=== PATIENT | male | born 1940 | race Caucasian/White ===

== ENCOUNTER → 2016-05-23 | Outpatient (CLI) | payer MEDICARE ==
[~2016-05-23] MED LIST: ASPI-587 PO; ASPI-84 PO; CALC-850 PO; CEPH500C PO; CHOL100011 PO; CRV6.25T PO; DOCU-161 PO; FERR-57 PO; FINA5TAB6 PO; FOLI1TAB24 PO; HYDR-1231 PO; MEMA10TA PO; OMEP40CA36 PO; PARO20TA57 PO; PRED5TAB PO; SIMV20TA3 PO; TAMS0.4C2 PO
--- NOTE | 2016-05-23 12:37 | Diagnostic Imaging Report ---
INDICATION: Cough and fever. PA and lateral chest: FINDINGS: Heart size and pulmonary vascularity are normal. Lungs are clear. There are no effusions or pneumothoraces. IMPRESSION: Negative chest. Dictated by: Dictated on workstation # [id number]
== END ==
LOC: RAD 11:14
PROVIDERS: ATTEND Nurse Practitioner
DX: R50.9 Fever, unspecified (principal); R05 Cough
CPT/HCPCS: 71020

== ENCOUNTER 2016-05-29 17:58 | Emergency (ER) | payer MEDICARE ==
[~2016-05-29] VITALS: Ht 182.9 cm; Wt 79.4 kg
--- NOTE | 2016-05-29 18:22 | ED Fall/Injury ---
General Chief Complaint: Trauma-Non Activation Stated Complaint: FALL, HEAD INJ Nursing Triage Note: Pt fell yesterday at [facility] and hit the back of his head. Pt felt dizzy and nausea yesterday but condition improved. Patient denies pain today. Nurse discussed case with Darwin Thomas today and he wanted his patient assessed at the ER today. Source: patient, caregiver Exam Limitations: no limitations History of Present Illness Time seen by provider: 18:00 Initial Comments Here with fall yesterday off a stool and hit the back of his head. He was dizzy and nauseated but no loss of consciousness. He thought of as a few days before and hit the front of his face. He does have small abrasion to the top of the back of his head and bruising to his lower lip. Walked without difficulty and is communicating without difficulty. Occurred: yesterday Severity: mild, moderate Injuries/Pain Location: head, face Loss of Consciousness: no loss of consciousness Modifying Factors: Improves With Immobilization, Improves With Rest Associated Symptoms (Fall): No Abdominal Pain, No Chest Pain, No Confusion, HeadacheNo Lightheadedness, No Nausea/Vomiting, No Neck Pain, No Trouble Walking Allergies and Home Medications Allergies Coded Allergies: acetaminophen (Unverified Allergy, Unknown, 07/28/14) hydrocodone (Unverified Allergy, Unknown, 07/28/14) oxycodone (Unverified Allergy, Unknown, 07/28/14) Home Medications Aspirin 81 Mg Tablet. 81 MG PO DAILY (Reported) Aspirin 81 Mg Tablet. #30 81 MG PO DAILY Prescribed by: MYRON DAWN on 07/25/14 1355 Calcium Carbonate/Vitamin D3 1 Each Tab.chew 1 TAB PO BID (Reported) Carvedilol 6.25 Mg Tab 6.25 MG PO BID (Reported) Cephalexin Monohydrate 500 Mg Capsule #12 1 EACH PO TID Prescribed by: JERONIMO MAYBERRY on 10/12/13 1721 Cholecalciferol 1,000 Unit Capsule 1,000 UNIT PO DAILY (Reported) Docusate Sodium 100 Mg Capsule 100 MG PO BID (Reported) Ferrous Sulfate 325 Mg Tablet 325 MG PO BID (Reported) Finasteride 5 Mg Tablet 5 MG PO DAILY (Reported) Folic Acid 1 Mg Tablet 1 MG PO DAILY (Reported) Hydrocodone Bit/Acetaminophen 1 Tab Tablet #10 1 TAB PO Q6H PRN PRN PAIN Prescribed by: JERONIMO MAYBERRY on 10/12/13 1721 Memantine Hcl 10 Mg Tablet 10 MG PO BID (Reported) Omeprazole 40 Mg Capsule.dr 40 MG PO DAILY (Reported) Paroxetine Hcl 20 Mg Tablet 20 MG PO DAILY (Reported) Prednisone 5 Mg Tablet 5 MG PO DAILY (Reported) Simvastatin 20 Mg Tablet 20 MG PO HS (Reported) Tamsulosin Hcl 0.4 Mg Cap.sr.24h 0.4 MG PO DAILY (Reported) Constitutional: see HPINo chills, No fever Eyes: No Symptoms Reported Ears, Nose, Mouth, Throat: no symptoms reporteddenies nose pain, denies nose discharge, denies epistaxis Respiratory: no symptoms reportedNo short of breath Cardiovascular: no symptoms reportedNo chest pain, No edema Gastrointestinal: no symptoms reported nausea (previously but improved now) Genitourinary: no symptoms reported Musculoskeletal: no symptoms reported Skin: see HPI lesions (abrasion to the posterior scalp) Psychiatric/Neurological: Denies Weakness, Other (dizziness) Past Ydhuhpo-Glkkls-Mkodtc Hx Patient Social History Alcohol Use: Denies Use Recreational Drug Use: No Recent Foreign Travel: No Contact w/Someone Who Travel: No Recent Infectious Disease Expo: No Immunizations Up To Date Tetanus Booster (TDap): Less than 5yrs Surgeries HX Surgeries: Yes Respiratory Hx Respiratory Disorders: No Cardiovascular Hx Cardiac Disorders: No Neurological Hx Neurological Disorders: No Gastrointestinal Hx Gastrointestinal Disorders: Yes (takes antacid prn) Musculoskeletal Hx Musculoskeletal Disorders: No Endocrine Hx Endocrine Disorders: No HEENT HX ENT Disorders: No Cancer Hx Cancer: No Psychosocial Hx Psychiatric Problems: No Reviewed Nursing Assessment Reviewed/Agree w Nursing PMH: Yes Family Medical History Family Medial History: Alzheimer's disease 19 MOTHER, Diabetes mellitus 19 FATHER, , Age:60 years and older Myocardial infarction 19 FATHER, , Age:60 years and older Physical Exam Vital Signs Vital Sign - Last 12Hours 05/29/16 18:11 Temp 97.5 Pulse 7 Resp 18 B/P 165/106 Pulse Ox 98 Capillary Refill : Less Than 3 Seconds General Appearance: WD/WN no apparent distress HEENT: PERRL/EOMI TMs normal pharynx normal Neck: non-tender full range of motion supple normal inspection Cardiovascular: regular rate, rhythm no murmur Respiratory: lungs clear normal breath sounds Gastrointestinal: non tender soft Back: normal inspection no CVA tenderness no vertebral tenderness Extremities: non-tender normal inspection Neurologic/Psychiatric: alert oriented x 3 Skin: warm/dry ecchymosis (small amount of ecchymosis to the lower lip) other (quarter size abrasion to the posterior scalp) Bharati Coma Score Best Eye Response: (4) Open Spontaneously Best Verbal Response: (5) Oriented Best Motor Response: (6) Obeys Commands Progress/Results/Core Measures Results/Orders My Orders Orders-JAHAIRA ELLIS MD Dipht,Pertuss(Acell),Tet Adult (Boostrix (05/29/16 19:06) Vital Signs/I&O Vital Sign - Last 12Hours 05/29/16 05/29/16 18:11 18:15 Temp 97.5 97.5 Pulse 7 7 Resp 18 18 B/P 165/106 165/106 Pulse Ox 98 98 Blood Pressure Mean: 125 Progress Note : Progress Note Seen and evaluated. CT head and neck ordered. No acute findings. Discharged home with return precautions. 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 Tetanus updated. Diagnostic Imaging Diagonstic Imaging: CT Plain Films/CT/US/NM/MRI: c-spine, head Comments NAME: BELA RODRIGUES [facility] REC#: [id number] PT STATUS: REG ER : 1940 PHYSICIAN: JERONIMO MAYBERRY APRN ADMIT DATE: 05/29/16/ER Signed Date of Exam: 05/29/16 CT HEAD/CERVICAL SPINE WO PROCEDURE: CT head and CT cervical spine without contrast. TECHNIQUE: Multiple contiguous axial images were obtained through the brain and cervical spine without the use of intravenous contrast. Sagittal and coronal reformations through the cervical spine were then performed. INDICATION: Fall, head and neck pain. COMPARISON: CT head from 07/24/14. FINDINGS: CT head: Stable age-related cerebral volume loss and chronic small vessel ischemic changes are present. There is no midline shift or mass effect. There is no hemorrhage or evidence of acute ischemia. There is no skull fracture. Mastoid air cells are clear. There is significant sinus disease. Air-fluid levels are seen in the maxillary right sphenoid sinus. Mucosal thickening is seen in the ethmoid sinus air cells. IMPRESSION: 1. No acute intracranial abnormalities. 2. Advanced sinus disease. CT cervical spine: Alignment is normal. There is no subluxation or fracture. Degenerative changes are seen throughout the disc spaces and facet joints. There is no osseous lesion. There is atherosclerosis of the bilateral carotid and vertebral arteries. IMPRESSION: No traumatic malalignment or fracture. Dictated by: Dictated on workstation # [id number] Dict: 05/29/161837 Trans: 05/29/161845 [facility] [id number] Interpreted by: GEOVANNI MERCADO Electronically signed by:GEOVANNI MERCADO 05/29/161847 Departure Impression Impression: Primary Impression: Minor head injury without loss of consciousness Qualified Code: S09.90XA - Unspecified injury of head, initial encounter Additional Impression: Abrasion Disposition: 01 HOME, SELF-CARE Condition: Improved Departure-Patient Inst. Decision time for Depature: 19:05 Referrals: JAMA ISAACS MD (PCP/Family) Primary Care Physician Patient Instructions: Skin Abrasions (DC), Minor Head Injury (DC) Add. Discharge Instructions: All discharge instructions reviewed with patient and/or family. Voiced understanding. Continue home medications as directed. You may use antibiotic ointment over wound on back of head. Follow-up with your doctor in a day or 2 for recheck and further evaluation. Return for worsening, fever, vomiting, weakness, breathing problems or other concerns as needed. Copy Copies To 1: JAMA ISAACS MD, TIMOTHY D MD May 29, 2016 18:22
--- NOTE | 2016-05-29 18:45 | Diagnostic Imaging Report ---
PROCEDURE: CT head and CT cervical spine without contrast. TECHNIQUE: Multiple contiguous axial images were obtained through the brain and cervical spine without the use of intravenous contrast. Sagittal and coronal reformations through the cervical spine were then performed. INDICATION: Fall, head and neck pain. COMPARISON: CT head from 07/24/14. FINDINGS: CT head: Stable age-related cerebral volume loss and chronic small vessel ischemic changes are present. There is no midline shift or mass effect. There is no hemorrhage or evidence of acute ischemia. There is no skull fracture. Mastoid air cells are clear. There is significant sinus disease. Air-fluid levels are seen in the maxillary right sphenoid sinus. Mucosal thickening is seen in the ethmoid sinus air cells. IMPRESSION: 1. No acute intracranial abnormalities. 2. Advanced sinus disease. CT cervical spine: Alignment is normal. There is no subluxation or fracture. Degenerative changes are seen throughout the disc spaces and facet joints. There is no osseous lesion. There is atherosclerosis of the bilateral carotid and vertebral arteries. IMPRESSION: No traumatic malalignment or fracture. Dictated by: Dictated on workstation # [id number]
[2016-05-29] MEDS ORDERED: TETANUS,DIPTH,PERTUSS P/F (BOOSTRIX) 0.5 ML VIAL IM STA (19:06)
[2016-05-29 19:19] VITALS: BP 0/0
== END 2016-05-29 19:17 | disposition home or self-care (01) ==
LOC: EDUNIT# 17:58 → ER 18:00
DX: S00.01XA Abrasion of scalp, initial encounter (principal); S00.531A Contusion of lip, initial encounter; Z23 Encounter for immunization; Z79.899 Other long term (current) drug therapy; Z79.82 Long term (current) use of aspirin; W07.XXXA Fall from chair, initial encounter; Y92.511 Restaurant or cafe as the place of occurrence of the external cause; Y99.8 Other external cause status
CPT/HCPCS: 70450; 72125; 90471; 90715; 99282

== ENCOUNTER → 2017-04-21 | Outpatient (CLI) | payer MEDICARE ==
[2017-04-21 17:53] LABS: BILIRUBIN,URINE NEGATIVE (NEGATIVE); CLARITY,URINE CLEAR; COLOR,URINE YELLOW; GLUCOSE, URINE (UA) NEGATIVE (NEGATIVE); KETONES,URINE NEGATIVE (NEGATIVE); LEUKOCYTE ESTERASE ,URINE NEGATIVE (NEGATIVE); NITRITE,URINE NEGATIVE (NEGATIVE); PH,URINE 7 (5-9); PROTEIN,URINE NEGATIVE (NEGATIVE); UROBILINOGEN,URINE NORMAL (NORMAL)
[2017-04-21 18:13] LABS: URINE CREATININE FOR RATIO 45 MG/DL (30-125); URINE PROTEIN FOR RATIO ONLY < 6 MG/DL (6-12)
[2017-04-21 18:16] LABS: BACTERIA,URINE NEGATIVE /HPF
== END ==
LOC: LAB 17:36
PROVIDERS: ATTEND Internal Medicine Nephrology
DX: I12.9 Hypertensive chronic kidney disease with stage 1 through stage 4 chronic kidney disease, or unspecified chronic kidney disease (principal); N18.3 Chronic kidney disease, stage 3 (moderate); D64.9 Anemia, unspecified
CPT/HCPCS: 81000; 82570; 84156

== ENCOUNTER 2017-12-15 20:30 | Emergency (ER) | payer MEDICARE ==
[~2017-12-15] VITALS: Ht 180.3 cm; Wt 95.7 kg
[2017-12-15] MEDS ORDERED: NS IV 1000 ML 1,000 ML IV SCH (22:41)
[2017-12-15 22:45] LABS: BASOPHILS % (AUTO) 0 % (0-10); EOSINOPHILS # (AUTO) 0.1 10^3/uL (0.0-0.3); EOSINOPHILS % (AUTO) 1 % (0-10); HEMATOCRIT 32 % (40-54); HEMOGLOBIN 10.8 G/DL (13.3-17.7); LYMPHOCYTES % (AUTO) 10 % (12-44); MEAN CORPUSCULAR HEMOGLOBIN 31 PG (25-34); MEAN CORPUSCULAR HGB CONC 34 G/DL (32-36); MEAN CORPUSCULAR VOLUME 93 FL (80-99); MEAN PLATELET VOLUME 10.3 FL (7.4-10.4); MONOCYTES # (AUTO) 1.1 X 10^3 (0.0-1.0); MONOCYTES % (AUTO) 11 % (0-12); NEUTROPHILS # (AUTO) 7.7 X 10^3 (1.8-7.8); NEUTROPHILS % (AUTO) 78 % (42-75); PLATELET COUNT 123 10^3/uL (130-400); RED BLOOD COUNT 3.46 10^6/uL (4.35-5.85); WHITE BLOOD COUNT 9.8 10^3/uL (4.3-11.0)
[2017-12-15 22:48] VITALS: BP 105/72
--- NOTE | 2017-12-15 22:48 | ED General ---
General Chief Complaint: General Problems/Pain Stated Complaint: FEVER Nursing Triage Note: FEVER SINCE LAST NIGHT. INCONTINENT SINCE FEVER STARTED. 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 The [facility] called the nurse and the nurse said that when this happens with him that usually urinary tract infection. The patient is also been having urinary incontinence. Patient knows where he is up but doesn't recall incontinence. He thinks a fall but staff said he did not have any falls today. He lives at [facility]. No evidence of trauma to his head or neck. Patient is not incontinent of bladder at baseline. 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 He is not having any pain shortness of breath cough or chills. Allergies and Home Medications Allergies Coded Allergies: acetaminophen (Unverified Allergy, Unknown, 07/28/14) hydrocodone (Unverified Allergy, Unknown, 07/28/14) oxycodone (Unverified Allergy, Unknown, 07/28/14) Home Medications Aspirin 81 Mg Tablet., 81 MG PO DAILY, (Reported) Aspirin 81 Mg Tablet.dr, 81 MG PO DAILY Prescribed by: MYRON DAWN on 07/25/14 1355 Calcium Carbonate/Vitamin D3 1 Each Tab.chew, 1 TAB PO BID, (Reported) Carvedilol 6.25 Mg Tab, 6.25 MG PO BID, (Reported) Cephalexin Monohydrate 500 Mg Capsule, 1 EACH PO TID Prescribed by: JERONIMO MAYBERRY on 10/12/13 1721 Cholecalciferol 1,000 Unit Capsule, 1,000 UNIT PO DAILY, (Reported) Docusate Sodium 100 Mg Capsule, 100 MG PO BID, (Reported) Ferrous Sulfate 325 Mg Tablet, 325 MG PO BID, (Reported) Finasteride 5 Mg Tablet, 5 MG PO DAILY, (Reported) Folic Acid 1 Mg Tablet, 1 MG PO DAILY, (Reported) Hydrocodone Bit/Acetaminophen 1 Tab Tablet, 1 TAB PO Q6H PRN for PAIN Prescribed by: JERONIMO MAYBERRY on 10/12/13 1721 Memantine Hcl 10 Mg Tablet, 10 MG PO BID, (Reported) Omeprazole 40 Mg Capsule.dr, 40 MG PO DAILY, (Reported) Paroxetine Hcl 20 Mg Tablet, 20 MG PO DAILY, (Reported) Prednisone 5 Mg Tablet, 5 MG PO DAILY, (Reported) Simvastatin 20 Mg Tablet, 20 MG PO HS, (Reported) Tamsulosin Hcl 0.4 Mg Cap.sr.24h, 0.4 MG PO DAILY, (Reported) Patient Home Medication List Home Medication List Reviewed: Yes Review of Systems Review of Systems Constitutional: No chills, No diaphoresis EENTM: No hearing loss, No ear pain Respiratory: No cough, No short of breath Cardiovascular: No chest pain, No palpitations Gastrointestinal: No abdominal pain, No nausea, No vomiting Genitourinary: No dysuria; incontinence Musculoskeletal: No back pain Past Aufasvh-Jvyeot-Qyakmg Hx Patient Social History Alcohol Use: Denies Use Recreational Drug Use: No Recent Foreign Travel: No Contact w/Someone Who Travel: No Recent Infectious Disease Expo: No Recent Hopitalizations: No Physical Abuse: No Sexual Abuse: No Immunizations Up To Date Tetanus Booster (TDap): Less than 5yrs Past Medical History Surgeries: No Respiratory: No Cardiac: No Neurological: No Genitourinary: No Gastrointestinal: No Musculoskeletal: No Endocrine: No HEENT: No Cancer: No Psychosocial: No Nursing Suicide Risk Score: 0 Integumentary: No Blood Disorders: No Family Medical History Alzheimer's disease 19 MOTHER, Diabetes mellitus 19 FATHER, , Age:60 years and older Myocardial infarction 19 FATHER, , Age:60 years and older Physical Exam Vital Signs Vital Signs - First Documented 12/15/17 22:01 Temp 98.2 Pulse 76 Resp 15 B/P (MAP) 98/62 (74) Pulse Ox 93 Capillary Refill : Less Than 3 Seconds Height, Weight, BMI Height: 5'11.00" Weight: 211lbs. oz. 95.494424hb; BMI Method:Stated General Appearance: No Apparent Distress, WD/WN Eyes: Bilateral Eye Normal Inspection, Bilateral Eye PERRL, Bilateral Eye EOMI HEENT: PERRL/EOMI, Pharynx Normal, Moist Mucous Membranes Neck: Full Range of Motion, Supple Respiratory: Chest Non Tender, Lungs Clear, Normal Breath Sounds, No Accessory Muscle Use, No Respiratory Distress Cardiovascular: Regular Rate, Rhythm, No Edema Gastrointestinal: Non Tender, Soft Extremity: Normal Capillary Refill, No Pedal Edema Neurologic/Psychiatric: Alert, Other (Oriented to person and place but not time or situation) Progress/Results/Core Measures Suspected Sepsis Recent Fever Within 48 Hours: Yes Infection Criteria Present: None New/Unexplained Altered Menta: No Sepsis Screen: No Definite Risk SIRS Temperature:98.2 Pulse: 76 Respiratory Rate: 15 Laboratory Tests 12/15/17 22:38: White Blood Count 9.8 Blood Pressure 98 /62 Mean: 74 Laboratory Tests 12/15/17 22:38: Creatinine 2.23H, Platelet Count 123L, Total Bilirubin 0.5 Results/Orders Lab Results Laboratory Tests Test 12/15/17 22:38 12/15/17 22:45 Range/Units White Blood Count 9.8 4.3-11.0 10^3/uL Red Blood Count 3.46 L 4.35-5.85 10^6/uL Hemoglobin 10.8 L 13.3-17.7 G/DL Hematocrit 32 L 40-54 % Mean Corpuscular Volume 93 80-99 FL Mean Corpuscular Hemoglobin 31 25-34 PG Mean Corpuscular Hemoglobin Concent 34 32-36 G/DL Red Cell Distribution Width 13.0 10.0-14.5 % Platelet Count 123 L 130-400 10^3/uL Mean Platelet Volume 10.3 7.4-10.4 FL Neutrophils (%) (Auto) 78 H 42-75 % Lymphocytes (%) (Auto) 10 L 12-44 % Monocytes (%) (Auto) 11 0-12 % Eosinophils (%) (Auto) 1 0-10 % Basophils (%) (Auto) 0 0-10 % Neutrophils # (Auto) 7.7 1.8-7.8 X 10^3 Lymphocytes # (Auto) 1.0 1.0-4.0 X 10^3 Monocytes # (Auto) 1.1 H 0.0-1.0 X 10^3 Eosinophils # (Auto) 0.1 0.0-0.3 10^3/uL Basophils # (Auto) 0.0 0.0-0.1 10^3/uL Sodium Level 138 135-145 MMOL/L Potassium Level 4.0 3.6-5.0 MMOL/L Chloride Level 106 98-107 MMOL/L Carbon Dioxide Level 20 L 21-32 MMOL/L Anion Gap 12 5-14 MMOL/L Blood Urea Nitrogen 41 H 7-18 MG/DL Creatinine 2.23 H 0.60-1.30 MG/DL Estimat Glomerular Filtration Rate 29 BUN/Creatinine Ratio 18 Glucose Level 155 H 70-105 MG/DL Calcium Level 9.0 8.5-10.1 MG/DL Corrected Calcium 9.5 8.5-10.1 MG/DL Total Bilirubin 0.5 0.1-1.0 MG/DL Aspartate Amino Transf (AST/SGOT) 16 5-34 U/L Alanine Aminotransferase (ALT/SGPT) 13 0-55 U/L Alkaline Phosphatase 33 L 40-136 U/L Total Protein 6.7 6.4-8.2 GM/DL Albumin 3.4 3.2-4.5 GM/DL Urine Color YELLOW Urine Clarity SLIGHTLY CLOUDY Urine pH 6 5-9 Urine Specific [place] 1.010 L 1.016-1.022 Urine Protein 2+ H NEGATIVE Urine Glucose (UA) NEGATIVE NEGATIVE Urine Ketones NEGATIVE NEGATIVE Urine Nitrite NEGATIVE NEGATIVE Urine Bilirubin NEGATIVE NEGATIVE Urine Urobilinogen NORMAL NORMAL MG/DL Urine Leukocyte Esterase NEGATIVE NEGATIVE Urine RBC (Auto) 3+ H NEGATIVE Urine RBC 10-25 H /HPF Urine WBC NONE /HPF Urine Crystals NONE /LPF Urine Bacteria NONE /HPF Urine Casts NONE /LPF Urine Mucus NEGATIVE /LPF Urine Culture Indicated NO My Orders Orders - ILIANA SQUIRES Saline Lock/Iv-Start (12/15/17 22:41) Ns Iv 1000 Ml (Sodium Chloride 0.9%) (12/15/17 22:41) Vital Signs/I&O 12/15/17 22:01 Temp 98.2 Pulse 76 Resp 15 B/P (MAP) 98/62 (74) Pulse Ox 93 Capillary Refill : Less Than 3 Seconds Blood Pressure Mean: 74 Progress Note #1: Time: 22:46 Progress Note He has a history of dementia but staff saying he is having some symptoms of stomach delirium. The urinary incontinence is concerning for UTI so we'll check some basic labs give him a liter of fluids and a urinalysis specimen. If is not able to produce it we'll do a straight catheter. His blood pressure around 100 to 105 systolic. We will give him a liter fluids and watch him. Even if he has urinary tract infection and delirium if the rest of his labs are okay at probably reasonable to let him go home to comfort care and continue outpatient therapy. Progress Note #2: Time: 23:38 Progress Note Patient still having no focal complaints. He's had no documented fever here in the ER however I do tend to believe them. He is not having any pulmonary symptoms. His urine has red blood cells which is consistent with a prostatism and a straight catheter but no evidence of infection. I think would be better to return him to the home plus and have them observe him and follow-up with his primary care provider next week. However if he gets worse they can bring him back. His vital signs of been fine since she's been here. His blood pressure 123 /81 heart rate in the 60s. Perhaps a virus? Diagnostic Imaging Diagonstic Imaging: Xray Plain Films/CT/US/NM/MRI: chest Comments No acute cardiopulmonary processes noted. Reviewed: Reviewed by Me Departure Impression Primary Impression: History of fever Disposition: HOME, SELF-CARE Condition: Stable Departure-Patient Inst. Decision time for Depature: 23:45 Referrals: JAMA ISAACS MD (PCP/Family) Primary Care Physician Patient Instructions: Fever, Adult (DC) Add. Discharge Instructions: Drink lots of fluids. If he gets a fever again give him some Tylenol or Motrin. If he starts having any specific symptoms falls, shortness of breath, painful urination etc. please bring him back to the ER or to his primary care doctor. Have him follow-up next week with the PA or Dr. Isaacs and have them reexamine him. All discharge instructions reviewed with patient and/or family. Voiced understanding. Copy Copies To 1: JAMA ISAACS MD, TITUS J Dec 15, 2017 22:48
[2017-12-15 22:59] LABS: BILIRUBIN,URINE NEGATIVE (NEGATIVE); CLARITY,URINE SLIGHTLY CLOUDY; COLOR,URINE YELLOW; GLUCOSE, URINE (UA) NEGATIVE (NEGATIVE); KETONES,URINE NEGATIVE (NEGATIVE); LEUKOCYTE ESTERASE ,URINE NEGATIVE (NEGATIVE); NITRITE,URINE NEGATIVE (NEGATIVE); PH,URINE 6 (5-9); PROTEIN,URINE 2+ (NEGATIVE); UROBILINOGEN,URINE NORMAL (NORMAL)
[2017-12-15 23:02] LABS: ALBUMIN 3.4 GM/DL (3.2-4.5); BILIRUBIN,TOTAL 0.5 MG/DL (0.1-1.0); CREATININE SERUM 2.23 MG/DL (0.60-1.30); TOTAL PROTEIN 6.7 GM/DL (6.4-8.2)
--- OUTSIDE RECORDS SUMMARY | 2017-12-16 04:59 | XMS REPORT | Clinical Summary ---
Author Author User, [facility] Lorene Durbin DO, FACP Address Unknown Phone Allergies, Adverse Reactions, Alerts Allergy Name Reaction Description Start Date Severity Status Provider PERCOCET Dermatological problems, e.g., rash, hives Critical Active Lorene Durbin HYDROCODONE Does not work Critical Active Lorene Durbin Conditions or Problems Problem Name Problem Code Onset Date Status Entry Date Provider Comment Standard Description Annotate PVD 443.9 Active Lorene Durbin Peripheral vascular disease, unspecified RENAL INSUFFICIENCY 588.9 Active Lorene Durbin Unspecified disorder resulting from impaired renal function OSTEOARTHRITIS 715.90 Active Lorene Durbin Osteoarthrosis, unspecified whether generalized or localized, involving unspecified site HYPERTENSION 401.1 Active Lorene Durbin Benign essential hypertension ERECTILE DYSFUNCTION, 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 Lorene Durbin Impotence of organic origin MUSCLE CRAMPS 729.82 Resolved Lorene Durbin Cramp of limb VASCULITIS 447.6 Resolved Lorene Durbin Arteritis, unspecified CHEST PAIN 786.50 Resolved Lorene Durbin Unspecified chest pain BRONCHITIS 490 Resolved Lorene Durbin Bronchitis, not specified as acute or chronic COUGH 786.2 Resolved Lorene Durbin Cough MARSHALL SPLINTS 844.9 Resolved Lorene Durbin Sprain of unspecified site of knee and leg BACK PAIN 724.5 Resolved Lorene Durbin Backache, unspecified CAROTID ARTERY STENOSIS, LEFT 433.10 Active Lorene Durbin Occlusion and stenosis of carotid artery, without mention of cerebral infarction TIA 435.9 Resolved Lorene Durbin Unspecified transient cerebral ischemia SCIATICA, RIGHT 724.3 Resolved Lorene Durbin Sciatica HYPERGLYCEMIA, MILD 790.6 Correction Lorene Durbin Other abnormal blood chemistry DIABETES MELLITUS, NONINSULIN DEPENDENT (NIDDM) 250.00 Active Lorene Durbin Diabetes mellitus without mention of complication, type II or unspecified type, not stated as uncontrolled HAND PAIN, LEFT 729.5 Resolved Lorene Durbin Pain in limb ABDOMINAL PAIN, ACUTE 789.00 Resolved Lorene Durbin Abdominal pain, unspecified site ANEMIA NOS 285.9 Resolved Lorene Durbin Anemia, unspecified CELLULITIS 682.9 Resolved Lorene Durbin Cellulitis and abscess of unspecified sites PNEUMONIA 486 Resolved Lorene Durbin Pneumonia, organism unspecified FEVER 780.6 Resolved Lorene Durbin Fever and other physiologic disturbances of temperature regulation BRONCHITIS 490 Resolved Lorene Durbin Bronchitis, not specified as acute or chronic COUGH 786.2 Resolved Lorene Durbin Cough VACCINE AGAINST STREPTOCOCCUS PNEUMONIAE V03.82 Resolved Lorene Durbin Need for prophylactic vaccination against Streptococcus pneumoniae [pneumococcus] DYSPHAGIA PHARYNGOESOPHAGEAL PHASE 787.24 Resolved Lorene Durbin Dysphagia, pharyngoesophageal phase SHINGLES, RECURRENT 053.9 Resolved Lorene Durbin Herpes zoster without mention of complication 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 Lorene Durbin 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 Lorene Durbin 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 ENCEPHALOPATHY, METABOLIC 348.31 Resolved Lorene Durbin Metabolic encephalopathy RINGWORM 110.9 Resolved Lorene Durbin Dermatophytosis of unspecified site DERMATITIS, CONTACT, NOS 692.9 Resolved Lorene Durbin Contact dermatitis and other eczema, unspecified cause DELIRIUM DUE TO CONDITIONS CLASSIFIED ELSEWHERE 293.0 Resolved Lorene Durbin Delirium due to conditions classified elsewhere MEMORY LOSS 780.93 Active Lorene Durbin Memory loss PNEUMONIA 486 Resolved Lorene Durbin Pneumonia, organism unspecified COUGH 786.2 Resolved Lorene Durbin Cough ANEMIA NOS 285.9 Active Lorene Durbin Anemia, unspecified PSYCHOMOTOR SEIZURE 345.40 Resolved Lorene Durbin Localization-related (focal) (partial) epilepsy and epileptic syndromes with complex partial seizures, without mention of intractable epilepsy URTICARIA, ACUTE 708.9 Inactive Lorene Durbin Unspecified urticaria URTICARIA, ACUTE 708.9 Inactive Lorene Durbin Unspecified urticaria OTITIS EXTERNA 380.10 Inactive Lorene Durbin Infective otitis externa, unspecified DEPRESSION 311 Active Lorene Durbin Depressive disorder, not elsewhere classified HYPERCHOLESTEROLEMIA 272.0 Active Lorene Durbin Pure hypercholesterolemia CHRONIC AIRWAY OBSTRUCTION (COPD) 496 Active Lorene Durbin Chronic airway obstruction, not elsewhere classified WHEEZING 786.07 Active Lorene Durbin Wheezing COUGH 786.2 Active Lorene Durbin Cough Medication List Medication Instructions Start Date Stop Date Generic Name NDC Status Provider Patient Instruction NOVOLOG 100 U/ML SOLN INJECT 3 UNITS BEFORE MEALS INSULIN ASPART 11358671264 Active Elizabeth Dixon PREDNISONE 10 MG TAB 2 PO at one time once daily for three days then 1 PO dialy for three days PREDNISONE 70573562750 Active Lorene Durbin SYMBICORT 160-4.5 MCG/ACT AERO 2 puffs BID BUDESONIDE- FORMOTEROL FUMARATE 67560913036 Active Lorene Durbin PULMICORT 0.5 MG/2ML SUSP I VIAL-INHALE ORALLY DAILY BUDESONIDE 31797189888 No Longer Active Lorene Durbin FOLIC ACID 1 MG TABS 1 PO QD FOLIC ACID 27373618451 No Longer Active Lorene Durbin TRAZODONE HCL 100 MG TABS 1 PO AT HS TRAZODONE HCL 97490305706 Active Elizabeth Dixon PREDNISONE 5 MG TABS 1 PO DAILY PREDNISONE 74911357587 Active Elizabeth Dixon IPRATROPIUM-ALBUTEROL 0.5-2.5 (3) MG/3ML SOLN 1 VIAL INHALE ORALLY TID 09/17 IPRATROPIUM-ALBUTEROL 27149604258 Active Lorene Durbin DEPAKOTE SPRINKLES 125 MG CPSP 1 TIME DAILY DIVALPROEX SODIUM 47932058394 Active Lorene Durbin EXELON 4.6 MG/24HR PT24 APPLY PATCH DAILY RIVASTIGMINE 03112686086 Active Lorene Merylgladys Durbin FOLIC ACID 1 MG TABS 1 PO DAILY FOLIC ACID 33052742284 Active Lorene Meryl Ramakrishna MELATONIN 3 MG TABS 1 PO AT HS FOR INSOMNIA MELATONIN 64342322718 Active Elizabeth Destiny MIRALAX POWD 17 GRAMS PO BID POLYETHYLENE GLYCOL 3350 75808620369 Active Lorene Meryl Ramakrishna NORVASC 10 MG TABS 1 PO DAILY AMLODIPINE BESYLATE 71607819164 Active Lorene Meryl Ramakrishna CELEXA 20 MG TABS 1 PO DAILY CITALOPRAM HYDROBROMIDE 56198953766 Active Lorene Meryl Ramakrishna PAXIL 20 MG TAB 1 PO DAILY PAROXETINE HCL 61964234213 No Longer Active Lorene Meryl Durbin BISACODYL LAXATIVE 10 MG SUPP 1 NC QD PRN constipation BISACODYL 59444096737 No Longer Active Lorene Mreyl Durbin COREG 6.25 MG TABS 1 PO BID CARVEDILOL 61732853393 Active Lorene Meryl Durbin BENADRYL 25 MG CAP 1 PO TID prn DIPHENHYDRAMINE HCL 59481423188 No Longer Active Lorene Meryl Durbin LACTULOSE SOLN 30 ML PO BID PRN Constipation LACTULOSE SOLN 77946257705 No Longer Active Lorene Meryl Durbin LASIX 40 MG TAB 1 PO MWF FUROSEMIDE 06015667543 No Longer Active Lorene Meryl Durbin VITAMIN D 1000 UNIT TABS 1 PO Daily CHOLECALCIFEROL 44327987591 Active Lorene Meryl Durbin ZOCOR 20 MG TABS 1 PO DAILY SIMVASTATIN 50180265349 Active Elizabeth Dixon FINASTERIDE 5 MG TABS 1 PO DAILY FINASTERIDE 76183362088 Active Lorene Meryl Durbin NAMENDA 10 MG TABS 1 PO BID MEMANTINE HCL 52510405445 Active Elizabeth Dixon KENALOG 0.1 % CREA apply to affected areas BID TRIAMCINOLONE ACETONIDE No Longer Active Lorenedada Durbin DILANTIN 100 MG CAP 1 PO at 7am and 2 pm and 2 PO at HS PHENYTOIN SODIUM EXTENDED 66125676015 No Longer Active Lorene Meryl Durbin PREDNISONE 20 MG TAB 1 PO daily for 7 days then resume 5mg dosing as previous PREDNISONE 89268799510 No Longer Active Lorene Meryl Durbin AUGMENTIN 500-125 MG TAB 1 PO BID AMOXICILLIN-POT CLAVULANATE 42422494195 No Longer Active Lorene Meryl Durbin OCUFLOX 0.3 % SOLN 2 drops in right ear TID for 7 days OFLOXACIN 03596135727 No Longer Active Lorene Meryl Durbin PREDNISONE 20 MG TAB 1 PO daily for 7 days PREDNISONE 76554829876 No Longer Active Lorene Meryl Durbin KENALOG 0.1 % CREA apply to affected areas BID TRIAMCINOLONE ACETONIDE No Longer Active Lorenedada Durbin ATARAX 25 MG TAB 1 PO Q6hrs prn itching HYDROXYZINE HCL No Longer Active Lorene Meryl Durbin DETROL LA 4 MG CP24 1 PO daily TOLTERODINE TARTRATE 93235709237 No Longer Active Lorene Meryl Durbin FINASTERIDE 5 MG TABS 1 PO BID FINASTERIDE 32990898490 No Longer Active Lorene Meryl Durbin BACTRIM DS 800-160 MG TAB 1 PO MWF TRIMETHOPRIM- SULFAMETHOXAZOLE 48870473511 No Longer Active Lorene Meryl Durbin NYSTATIN POWD Apply Topically to groin BID for gaulding NYSTATIN 70874062299 No Longer Active Lorene Meryl Durbin TERBINAFINE HCL 1 % CREA Apply to affected area BID TERBINAFINE HCL 05901780553 No Longer Active Lorenedada Durbin CALTRATE 600 PLUS-VIT D 600-200 MG-IU TABS 1 PO BID CALCIUM-VITAMIN D Active Elizabeth Dixon VALTREX 1 GM TAB 1 PO BID VALACYCLOVIR HCL 25837400334 No Longer Active Lorene Meryl Durbin TESSALON 200 MG CAPS 1 PO TID prn cough BENZONATATE 95212628610 No Longer Active Elizabeth Dixon PREDNISONE 10 MG TABS 1 PO QD PREDNISONE 49396705069 No Longer Active Lorenedada Durbin TESSALON 200 MG CAPS 1 PO TID prn cough BENZONATATE 94754594162 No Longer Active Lorenedada Durbin FLOMAX 0.4 MG CAPS 1 PO QD for urinary retention TAMSULOSIN HCL 34414917156 Active Elizabethjenn Dixon OMEPRAZOLE 40 MG CPDR 1 PO QD OMEPRAZOLE 98035226666 Active Elizabethjenn Dixon FERROUS SULFATE 325 (65 FE) MG TABS 1 PO BID FERROUS SULFATE 85663685616 Active Elizabethjenn Dixon COLACE 100 MG CAPS 1 PO BID prevent constipation DOCUSATE SODIUM 10373595267 Active Elizabeth Dixon ACETAMINOPHEN 325 MG TABS 2 PO Q 4hrs PRN pain or fever ACETAMINOPHEN 73859705134 Active Lorenedada Durbin IMURAN 50 MG TABS 3 po daily AZATHIOPRINE 22039988917 No Longer Active Lorenedada Durbin TOVIAZ 4 MG [id number] 1 po daily FESOTERODINE FUMARATE 47681892857 No Longer Active Lorene Durbin COREG 12.5 MG TABS 1 po bid CARVEDILOL 88618296338 No Longer Active Lorenedada Durbin WAVESENSE PRESTO TEST STRP Check BS Daily DX: DIABETES GLUCOSE BLOOD 04951805580 No Longer Active Lorene Meryl Durbin OMEPRAZOLE 40 MG CPDR 1 PO Daily OMEPRAZOLE 26297895732 No Longer Active Lorene Meryl Durbin FLOMAX 0.4 MG CAPS 1 PO Daily TAMSULOSIN HCL 94089204502 No Longer Active Lorene Meryl Durbin MEPRON 750 MG/5ML SUSP 5 ml PO BID ATOVAQUONE 02954954895 No Longer Active Lorene Meryl Durbin PREDNISONE 5 MG TABS 2 po daily PREDNISONE 28948512989 No Longer Active Lorene Meryl Durbin TERAZOSIN HCL 2 MG CAPS 1 PO qhs TERAZOSIN HCL 16980208224 No Longer Active Lorene Meryl Durbin VITAMIN D 1000 UNIT TABS 1 PO Daily CHOLECALCIFEROL 81892293586 No Longer Active Lorene Meryl Durbin PEPCID 20 MG TAB 1 PO daily FAMOTIDINE 49640443463 No Longer Active Lorene Meryl Durbin VITAMIN B-12 100 MCG TABS 1 po daily CYANOCOBALAMIN 56071461522 No Longer Active Lorene Meryl Durbin IRON 325 (65 FE) MG TABS 1 PO daily FERROUS SULFATE 80750582311 No Longer Active Lorene Meryl Durbin CALCIUM 600 1500 MG TABS 1 PO QAM and 2 PO QHS CALCIUM CARBONATE 59727436441 No Longer Active Lorene Meryl Durbin MULTIVITAMINS TABS 1 po daily MULTIPLE VITAMIN 23480485959 No Longer Active Lorene Meryl Durbin FISH OIL 1000 MG CAPS 1 po daily OMEGA-3 FATTY ACIDS 50617250702 No Longer Active Lorene Meryl Durbin ASPIRIN 81 MG TAB 1 PO QD ASPIRIN 25185744773 No Longer Active Lorene Meryl Durbin NORVASC 5 MG TAB 1 PO Daily AMLODIPINE BESYLATE 39770330180 No Longer Active Lorene Meryl Durbin CLOBETASOL PROPIONATE 0.05 % CREA Apply small amount to affected areas on arms BID CLOBETASOL PROPIONATE 64498284329 No Longer Active Lorene Meryl Durbin LOTRISONE 0.05-1 % CREAM Apply a small amount to affected area on back BID CLOTRIMAZOLE-BETAMETHASONE 64035302762 No Longer Active Lorene Meryl Durbin CYCLOPHOSPHAMIDE 25 MG TABS take 5 tablets once daily CYCLOPHOSPHAMIDE 20360743338 No Longer Active Lorene Meryl Durbin PERCOCET 5-325 MG TAB 1 PO Q 6 hours OXYCODONE- ACETAMINOPHEN 28688100502 No Longer Active Lorenedada Durbin VALTREX 1 GM TAB 1 PO BID VALACYCLOVIR HCL 20363698376 No Longer Active Lorene Meryl Durbin ACCUPRIL 10 MG TABS 1 po daily QUINAPRIL HCL 74190225202 No Longer Active Lorenedada Drubin COZAAR 25 MG TAB 1 PO daily LOSARTAN POTASSIUM 16123307557 No Longer Active Elizabeth Dixon MAGNESIUM OXIDE 400 MG CAPS 1 PO daily MAGNESIUM OXIDE 10608806291 No Longer Active Lorenedada Durbin LOTRISONE 0.05-1 % CREAM Apply to affected areas twice daily prn CLOTRIMAZOLE-BETAMETHASONE 55738950915 No Longer Active Lorenedada Durbin FERROUS SULFATE 100 MG 1 PO daily FERROUS SULFATE 100 MG No Longer Active Lorene Meryl Durbin QUALAQUIN 324 MG CAPS 1 PO QHS prn QUININE SULFATE 20924153147 No Longer Active Lorenedada Durbin ROBITUSSIN A-C 10-100 MG/5ML SYRUP 1 teaspoon PO Q 4-6 hr prn ROBITUSSIN A-C 10-100 MG/5ML SYRUP 34018844553 No Longer Active Lorene Meryl Durbin BIAXIN XL PAC 500 MG TB24 2 pills at same time daily for 7 days CLARITHROMYCIN 09311121110 No Longer Active Lorene Meryl Durbin TESSALON 200 MG CAPS 1 PO TID prn cough BENZONATATE 21492130259 No Longer Active Lorene Meryl Durbin ROBITUSSIN A-C 10-100 MG/5ML SYRUP 1 teaspoon PO Q 4-6 hr prn ROBITUSSIN A-C 10-100 MG/5ML SYRUP 16064699325 No Longer Active Lorene Meryl Durbin BIAXIN XL PAC 500 MG TB24 2 pills at same time daily for 7 days CLARITHROMYCIN 44144312522 No Longer Active Lorene Meryl Durbin KEFLEX 500 MG CAP 1 PO TID for 7 days CEPHALEXIN 64004334726 No Longer Active Lorene Meryl Durbin FERROUS SULFATE 325 (65 FE) MG TABS 1 PO daily FERROUS SULFATE 85695153543 No Longer Active Lorene Meryl Durbin CINNAMON 500 MG CAPS 1 po daily CINNAMON 13811788594 No Longer Active Lorene Meryl Durbin XANAX 0.25 MG TABS 1 po q 4-6 hrs prn ALPRAZOLAM 35901231752 No Longer Active Lorene Meryl Durbin TRIAMCINOLONE ACETONIDE 0.1 % OINT Apply as directed TRIAMCINOLONE ACETONIDE 62239513116 No Longer Active Lorene Meryl Durbin KERALAC 50 % GEL as needed UREA 33384699927 No Longer Active Lorene Meryl Durbin AMITRIPTYLINE HCL 25 MG TAB 1 PO daily at night prn AMITRIPTYLINE HCL 62792260552 No Longer Active Lorene Meryl Durbin ZOCOR 5 MG TABS 1 PO QOD (on hold) SIMVASTATIN 97540558448 No Longer Active Lorene Meryl Durbin VIAGRA 50 MG TABS prn SILDENAFIL CITRATE 03272096714 No Longer Active Lorene Meryl Durbin DARVOCET-N 100 100-650 MG TABS 1 po q 6 hrs. prn pain PROPOXYPHENE N-APAP 69491625499 No Longer Active Lorene Meryl Durbin CYCLOBENZAPRINE HCL 10 MG TABS 1 po q 12 hrs. prn CYCLOBENZAPRINE HCL 97474154744 No Longer Active Lorene Meryl Durbin LORTAB 5 5-500 MG TABS 1 as needed HYDROCODONE- ACETAMINOPHEN 39421603302 No Longer Active Lorene Meryl Durbin ALBUTEROL 90 MCG/ACT AERS 2 puffs Q4-6hrs prn ALBUTEROL 74760501852 No Longer Active Lorene Meryl Durbin ROBITUSSIN A-C 10-100 MG/5ML SYRUP 5cc PO Q 4-6 hr prn ROBITUSSIN A-C 10-100 MG/5ML SYRUP 42224443735 No Longer Active Lorene Meryl Durbin ADVAIR DISKUS 100-50 MCG/DOSE MISC 1 puff BID FLUTICASONE-SALMETEROL 51635804535 No Longer Active Lorene Meryl Durbin AUGMENTIN 500-125 MG TABS 1 PO BID AMOXICILLIN-POT CLAVULANATE 02580685328 No Longer Active Lorene Meryl Durbin PLAVIX 75 MG TABS 1 po daily CLOPIDOGREL BISULFATE 72911282094 No Longer Active Lorene Meryl Durbin AMOXIL 500 MG TABS 1 PO TID AMOXICILLIN 34118414818 No Longer Active Lorene Meryl Durbin Immunizations Vaccine Administration Date Value Standard Description Influenza vaccine given done influenza virus vaccine, unspecified formulation Influenza vaccine given done influenza virus vaccine, unspecified formulation pneumococcal immunization administered Dr. Durbin pneumococcal polysaccharide vaccine, 23 valent pneumococcal immunization administered Disscused pneumococcal polysaccharide vaccine, 23 valent Vital Signs Date Name Value Unit Range Description blood pressure, diastolic - 8462-4 80 mm[Hg] BP leahy blood pressure, systolic - 8480-6 126 mm[Hg] BP sys pulse rate E&M - 8867-4 84 /min Heart rate respiratory rate E&M - 9279-1 14 /min Resp rate temperature E&M 98.6 [degF] Body temperature weight E&M - 3141-9 202 [lb_av] Weight Measured blood pressure, diastolic - 8462-4 84 mm[Hg] BP leahy blood pressure, systolic - 8480-6 124 mm[Hg] BP sys pulse rate E&M - 8867-4 80 /min Heart rate respiratory rate E&M - 9279-1 14 /min Resp rate temperature E&M 99 [degF] Body temperature weight E&M - 3141-9 200 [lb_av] Weight Measured blood pressure, diastolic - 8462-4 72 mm[Hg] BP leahy blood pressure, systolic - 8480-6 138 mm[Hg] BP sys pulse rate E&M - 8867-4 72 /min Heart rate respiratory rate E&M - 9279-1 14 /min Resp rate temperature E&M 98.6 [degF] Body temperature weight E&M - 3141-9 201 [lb_av] Weight Measured blood pressure, diastolic - 8462-4 70 mm[Hg] BP leahy blood pressure, systolic - 8480-6 126 mm[Hg] BP sys pulse rate E&M - 8867-4 80 /min Heart rate respiratory rate E&M - 9279-1 14 /min Resp rate weight E&M - 3141-9 200 [lb_av] Weight Measured blood pressure, diastolic - 8462-4 70 mm[Hg] BP leahy blood pressure, systolic - 8480-6 140 mm[Hg] BP sys pulse rate E&M - 8867-4 80 /min Heart rate respiratory rate E&M - 9279-1 14 /min Resp rate temperature E&M 98.2 [degF] Body temperature weight E&M - 3141-9 201 [lb_av] Weight Measured blood pressure, diastolic - 8462-4 66 mm[Hg] BP leahy blood pressure, systolic - 8480-6 134 mm[Hg] BP sys height E&M - 8302-2 71 [in_us] Bdy height pulse rate E&M - 8867-4 70 /min Heart rate respiratory rate E&M - 9279-1 14 /min Resp rate weight E&M - 3141-9 200 [lb_av] Weight Measured blood pressure, diastolic - 8462-4 74 mm[Hg] BP leahy blood pressure, systolic - 8480-6 136 mm[Hg] BP sys pulse rate E&M - 8867-4 78 /min Heart rate respiratory rate E&M - 9279-1 14 /min Resp rate weight E&M - 3141-9 197 [lb_av] Weight Measured Diagnostic Results Date Name Value Unit Range Description Clinical Lists Update: BMP - Chemistry Estimated Glomerular Filtration Rate (calc) 36 mL/min/1.73m2 glucose, plasma fasting 143 mg/dL anion gap, serum 12 sodium, serum 137 mmol/L urea nitrogen, blood 30 mg/dL creatinine, serum 2.0 mg/dL carbon dioxide, venous blood 27.0 mmol/L chloride, serum 103 mmol/L calcium, serum 9.2 mg/dL potassium, serum 5.0 mmol/L Clinical Lists Update: CBC - Hematology red blood cell distribution width 15.3 % mean corpuscular volume, RBC 94 fL leukocyte count, blood 8.2 10*3/mm3 hematocrit, blood 33.4 % platelet count 131 10*3/mm3 hemoglobin, blood 10.9 g/dL erythrocyte (RBC) count 3.54 10*6/mm3 Clinical Lists Update: CBC,BMP DR [facility] - Chemistry sodium, serum 139 mmol/L potassium, serum 5.0 mmol/L creatinine, serum 1.9 mg/dL carbon dioxide, venous blood 31.0 mmol/L chloride, serum 103 mmol/L calcium, serum 9.4 mg/dL urea nitrogen, blood 27 mg/dL Estimated Glomerular Filtration Rate (calc) 37 mL/min/1.73m2 glucose, plasma fasting 133 mg/dL anion gap, serum 10 Clinical Lists Update: CBC,BMP DR [facility] - Hematology red blood cell distribution width 14.0 % mean corpuscular volume, RBC 100 fL leukocyte count, blood 8.6 10*3/mm3 erythrocyte (RBC) count 4.32 10*6/mm3 platelet count 137 10*3/mm3 hemoglobin, blood 13.2 g/dL hematocrit, blood 43 % Clinical Lists Update: CBC,BMP,UA DR [facility] - Chemistry calcium, serum 9.3 mg/dL urea nitrogen, blood 26 mg/dL chloride, serum 104 mmol/L carbon dioxide, venous blood 30.0 mmol/L creatinine, serum 2.0 mg/dL potassium, serum 5.0 mmol/L sodium, serum 139 mmol/L anion gap, serum 10 Estimated Glomerular Filtration Rate (calc) 34 mL/min/1.73m2 glucose, plasma fasting 150 mg/dL Clinical Lists Update: CBC,BMP,UA DR [facility] - Hematology leukocyte count, blood 8.9 10*3/mm3 mean corpuscular volume, RBC 101 fL red blood cell distribution width 14.6 % hematocrit, blood 44 % hemoglobin, blood 13.4 g/dL platelet count 145 10*3/mm3 erythrocyte (RBC) count 4.31 10*6/mm3 Clinical Lists Update: CBC,BMP,UA DR [facility] - Urinalysis epithelial cells, urine none /[LPF] hyaline casts, urine none /[LPF] bacteria, urine microscopy none RBC urine by microscopy none WBC urine on microscopy none {Cells}/[HPF] appearance, urine Clear Yellow urobilinogen, urine, semiquantitative (dipstick) 0.2 specific gravity, urine 1.020 mucus on urinalysis none blood in urine (hemoglobin) by dipstick trace pH, urine, semiquantitative 6.5 nitrite, urine, semiquantitative neg ketones, urine, by test strip neg protein, urine, semiquantitative (dipstick) neg glucose, urine, semiquantitative neg bilirubin, urine neg Clinical Lists Update: CBC,CMP,FLP,HGA1C,MICROALBUMIN,FERRITIN - Chemistry alanine aminotransferase (SGPT), serum 11 U/L alkaline phosphatase, serum 26 U/L urea nitrogen, blood 26 mg/dL calcium, serum 8.4 mg/dL chloride, serum 106 mmol/L cholesterol, serum 125 mg/dL carbon dioxide, venous blood 25.0 mmol/L creatinine, serum 1.5 mg/dL Estimated Glomerular Filtration Rate (calc) 48 mL/min/1.73m2 glucose, plasma fasting 107 mg/dL cholesterol/HDL ratio, serum, percent 3.8 anion gap, serum 11 sodium, serum 138 mmol/L triglyceride, serum, fasting 76 mg/dL bilirubin, serum, total 0.3 mg/dL albumin, serum 3.2 g/dL aspartate aminotransferase (SGOT), serum 12 U/L protein, total, serum 5.5 g/dL potassium, serum 3.9 mmol/L LDL cholesterol, serum 77 mg/dL hemoglobin A1C, blood, as % of total hemoglobin 5.9 % HDL cholesterol, serum 33.0 mg/dL ferritin, serum 273.2 ng/mL Clinical Lists Update: CBC,CMP,FLP,HGA1C,MICROALBUMIN,FERRITIN - Hematology hematocrit, blood 33.6 % hemoglobin, blood 10.3 g/dL platelet count 140 10*3/mm3 erythrocyte (RBC) count 3.47 10*6/mm3 leukocyte count, blood 6.9 10*3/mm3 mean corpuscular volume, RBC 97 fL red blood cell distribution width 15.3 % Clinical Lists Update: CBC,CMP,FLP,HGA1C,MICROALBUMIN,FERRITIN - Urinalysis microalbumin, urine, semiquantitative 3.2 mg/dL Clinical Lists Update: CBC,CMP,FLP.UA - Chemistry triglyceride, serum, fasting 131 mg/dL bilirubin, serum, total 0.3 mg/dL alanine aminotransferase (SGPT), serum 19 U/L aspartate aminotransferase (SGOT), serum 19 U/L protein, total, serum 6.2 g/dL potassium, serum 4.7 mmol/L LDL cholesterol, serum 101 mg/dL HDL cholesterol, serum 40.0 mg/dL bilirubin, serum, direct 0.0 mg/dL creatinine, serum 1.9 mg/dL carbon dioxide, venous blood 31.0 mmol/L cholesterol, serum 167 mg/dL chloride, serum 106 mmol/L calcium, serum 9.3 mg/dL urea nitrogen, blood 27 mg/dL alkaline phosphatase, serum 35 U/L albumin, serum 3.7 g/dL Estimated Glomerular Filtration Rate (calc) 9.3 mL/min/1.73m2 glucose, plasma fasting 102 mg/dL cholesterol/HDL ratio, serum, percent 4.2 anion gap, serum 8 sodium, serum 140 mmol/L Clinical Lists Update: CBC,CMP,FLP.UA - Hematology hemoglobin, blood 12.9 g/dL platelet count 137 10*3/mm3 erythrocyte (RBC) count 4.10 10*6/mm3 leukocyte count, blood 7.9 10*3/mm3 mean corpuscular volume, RBC 99 fL red blood cell distribution width 14.2 % hematocrit, blood 41 % Clinical Lists Update: CBC,CMP,FLP.UA - Urinalysis urobilinogen, urine, semiquantitative (dipstick) 0.2 specific gravity, urine 1.015 pH, urine, semiquantitative 7.0 nitrite, urine, semiquantitative neg ketones, urine, by test strip neg bilirubin, urine neg glucose, urine, semiquantitative neg protein, urine, semiquantitative (dipstick) neg appearance, urine Clear Yellow WBC urine on microscopy none {Cells}/[HPF] RBC urine by microscopy none bacteria, urine microscopy none hyaline casts, urine none /[LPF] epithelial cells, urine 0-5 /[LPF] blood in urine (hemoglobin) by dipstick trace mucus on urinalysis none Clinical Lists Update: CMP - Chemistry Estimated Glomerular Filtration Rate (calc) 44 mL/min/1.73m2 albumin, serum 3.1 g/dL anion gap, serum 12 sodium, serum 140 mmol/L bilirubin, serum, total 0.3 mg/dL alanine aminotransferase (SGPT), serum 9 U/L aspartate aminotransferase (SGOT), serum 11 U/L protein, total, serum 5.1 g/dL potassium, serum 3.9 mmol/L creatinine, serum 1.6 mg/dL carbon dioxide, venous blood 25.0 mmol/L chloride, serum 107 mmol/L calcium, serum 8.1 mg/dL urea nitrogen, blood 21 mg/dL alkaline phosphatase, serum 23 U/L glucose, plasma fasting 89 mg/dL Clinical Lists Update: [facility] - Chemistry Estimated Glomerular Filtration Rate (calc) 38 mL/min/1.73m2 glucose, plasma fasting 125 mg/dL anion gap, serum 11 sodium, serum 143 mmol/L bilirubin, serum, total 0.5 mg/dL alanine aminotransferase (SGPT), serum 21 U/L aspartate aminotransferase (SGOT), serum 18 U/L protein, total, serum 5.4 g/dL potassium, serum 4.2 mmol/L creatinine, serum 1.77 mg/dL carbon dioxide, venous blood 27 mmol/L chloride, serum 109 mmol/L calcium, serum 9.0 mg/dL urea nitrogen, blood 52 mg/dL alkaline phosphatase, serum 24 U/L albumin, serum 3.1 g/dL Estimated Glomerular Filtration Rate (calc) 38 mL/min/1.73m2 glucose, plasma fasting 111 mg/dL sodium, serum 144 mmol/L bilirubin, serum, total 0.5 mg/dL alanine aminotransferase (SGPT), serum 37 U/L aspartate aminotransferase (SGOT), serum 19 U/L protein, total, serum 6.3 g/dL potassium, serum 4.1 mmol/L thyroid stimulating hormone, serum 1.59 u[iU]/mL creatinine, serum 1.76 mg/dL carbon dioxide, venous blood 23 mmol/L chloride, serum 110 mmol/L calcium, serum 8.9 mg/dL urea nitrogen, blood 23 mg/dL alkaline phosphatase, serum 30 U/L albumin, serum 3.5 g/dL Clinical Lists Update: IN PT LABS - Hematology red blood cell distribution width 12.9 % hematocrit, blood 38 % hemoglobin, blood 12.6 g/dL platelet count 125 10*3/mm3 erythrocyte (RBC) count 4.00 10*6/mm3 leukocyte count, blood 6.5 10*3/mm3 mean corpuscular volume, RBC 94.9 fL red blood cell distribution width 12.8 % hematocrit, blood 40.6 % hemoglobin, blood 13.5 g/dL platelet count 93 10*3/mm3 erythrocyte (RBC) count 4.28 10*6/mm3 leukocyte count, blood 9.78 10*3/mm3 mean corpuscular volume, RBC 94 fL Clinical Lists Update: IN PT LABS - Urinalysis glucose, urine, semiquantitative neg bilirubin, urine neg ketones, urine, by test strip neg nitrite, urine, semiquantitative neg pH, urine, semiquantitative 6 specific gravity, urine 1.015 urobilinogen, urine, semiquantitative (dipstick) normal appearance, urine Clear Yellow WBC urine on microscopy rare {Cells}/[HPF] RBC urine by microscopy rare bacteria, urine microscopy few hyaline casts, urine present /[LPF] epithelial cells, urine 0-2 /[LPF] mucus on urinalysis neg protein, urine, semiquantitative (dipstick) neg blood in urine (hemoglobin) by dipstick neg Office Visit: Dr Durbin's Check Up: Established Patient Visit - Chemistry Estimated Glomerular Filtration Rate (calc) 38 mL/min/1.73m2 glucose, plasma fasting 120 mg/dL albumin, serum 4.2 g/dL alkaline phosphatase, serum 36 U/L urea nitrogen, blood 30 mg/dL calcium, serum 9.5 mg/dL chloride, serum 102 mmol/L cholesterol, serum 177 mg/dL carbon dioxide, venous blood 30.0 mmol/L creatinine, serum 1.9 mg/dL ferritin, serum 195.9 ng/mL hemoglobin A1C, blood, as % of total hemoglobin 6.2 % potassium, serum 4.7 mmol/L protein, total, serum 7.0 g/dL aspartate aminotransferase (SGOT), serum 21 U/L anion gap, serum 10 sodium, serum 141 mmol/L triglyceride, serum, fasting 109 mg/dL bilirubin, serum, total 0.4 mg/dL alanine aminotransferase (SGPT), serum 19 U/L aspartate aminotransferase (SGOT), serum 18 U/L protein, total, serum 6.6 g/dL potassium, serum 4.3 mmol/L hemoglobin A1C, blood, as % of total hemoglobin 6.1 % ferritin, serum 180.8 ng/mL creatinine, serum 1.9 mg/dL carbon dioxide, venous blood 28.0 mmol/L cholesterol, serum 157 mg/dL chloride, serum 107 mmol/L calcium, serum 9.1 mg/dL urea nitrogen, blood 27 mg/dL alkaline phosphatase, serum 36 U/L albumin, serum 4.0 g/dL Estimated Glomerular Filtration Rate (calc) 38 mL/min/1.73m2 glucose, plasma fasting 129 mg/dL anion gap, serum 12 sodium, serum 139 mmol/L triglyceride, serum, fasting 156 mg/dL bilirubin, serum, total 0.4 mg/dL alanine aminotransferase (SGPT), serum 22 U/L Office Visit: Dr Durbin's Check Up: Established Patient Visit - Hematology red blood cell distribution width 14.4 % hemoglobin, blood 13.5 g/dL platelet count 149 10*3/mm3 erythrocyte (RBC) count 4.36 10*6/mm3 leukocyte count, blood 11.1 10*3/mm3 mean corpuscular volume, RBC 102 fL hematocrit, blood 44 % hematocrit, blood 45 % hemoglobin, blood 14.1 g/dL platelet count 146 10*3/mm3 erythrocyte (RBC) count 4.60 10*6/mm3 leukocyte count, blood 7.8 10*3/mm3 mean corpuscular volume, RBC 98 fL red blood cell distribution width 15.0 % Encounters Code Encounter Date Provider Facility CPT-72516 Ofc Vst, Est Level III 16:59:41 CDT Lorene Meryl Levinener, DO, FACP CPT-96091 Ofc Vst, Est Level III 14:28:01 CDT Lorene Meryl Durbin, DO, FACP CPT-11326 Ofc Vst, Est Level III 16:47:49 CDT Lorene Meryl Durbin, DO, FACP CPT-69296 Ofc Vst, Est Level III 16:04:23 CDT Lorene Meryl Durbin, DO, FACP CPT-91315 Ofc Vst, Est Level III 19:00:13 [employer] Lorene Durbin, DO, FACP CPT-03405 Ofc Vst, Est Level III 21:20:47 CDT Lorenedada Durbin, DO, FACP CPT-59896 Ofc Vst, Est Level III 20:32:44 [employer] Lorene Durbin, DO, FACP CPT-28413 Ofc Vst, Est Level III 14:43:31 [employer] Lorene Levinener, DO, FACP CPT-11811 Ofc Vst, Est Level III 20:01:57 [employer] Lorene Durbin, DO, FACP CPT-27694 Ofc Vst, Est Level III 16:57:33 CDT Lorenedada Durbin, DO, FACP CPT-97871 Ofc Vst, Est Level III 14:43:50 CDT Lorene Meryl Sorensen Durbin, DO, FACP CPT-89365 Ofc Vst, Est Level III 15:02:07 CDT Lorene Meryl Sorensen Durbin, DO, FACP CPT-26650 Ofc Vst, Est Level III 14:44:46 CDT Lorene Meryl Sorensen Durbin, DO, FACP CPT-88865 Ofc Vst, Est Level IV 16:13:39 CDT Lorene Meryl Sorensen Durbin, DO, FACP CPT-05012 Ofc Vst, Est Level III 11:48:41 CDT Lorene Meryl Sorensen Durbin, DO, FACP CPT-10871 Ofc Vst, Est Level III 15:46:15 CDT Lorene Meryl Sorensen Ramakrishna, DO, FACP CPT-76285 Ofc Vst, Est Level IV 15:57:50 CDT Lorene Meryl Sorensen Durbin, DO, FACP CPT-35102 Ofc Vst, Est Level III 16:05:36 [employer] Lorene Sorensen Durbin, DO, FACP CPT-13080 Ofc Vst, Est Level IV 15:52:15 [employer] Lorene Sorensen Durbin, DO, FACP CPT-79953 Ofc Vst, Est Level III 15:08:06 CDT Lorene Meryl Sorensen Durbin, DO, FACP CPT-54191 Ofc Vst, Est Level IV 15:06:29 CDT Lorene Meryl Sorensen Durbin, DO, FACP CPT-36804 Ofc Vst, Est Level IV 13:29:16 CDT Lorenedada Sorensen Ramakrishna, DO, FACP CPT-87616 Ofc Vst, Est Level V 13:50:55 [employer] Lorene Sorensne Durbin, DO, FACP CPT-43412 Ofc Vst, Est Level IV 11:10:14 [employer] Lorene Meryl Sorensen Durbin, DO, FACP CPT-47709 Ofc Vst, Est Level III 15:28:22 CDT Lorene Meryl Sorensen Durbin, DO, FACP CPT-71241 Ofc Vst, New Level IV 14:17:27 CDT Lorene Meryl Sorensen Durbin, DO, FACP CPT-39320 Ofc Vst, New Level II 14:17:27 CDT Lorene Meryl Sorensen Durbin, DO, FACP CPT-98724 Ofc Vst, Est Level IV 10:59:16 CDT Lorene Meryl Sorensen Ramakrishna, DO, FACP CPT-16170 Ofc Vst, Est Level II 16:12:29 CDT Lorenedada Sorensen Durbin, DO, FACP CPT-98812 Ofc Vst, Est Level IV 10:53:48 CDT Lorenedada Sorensen Durbin, DO, FACP CPT-27608 Office Consult, Level III 11:11:19 [employer] Lorene Sorensen Durbin, DO, FACP CPT-87423 Ofc Vst, Est Level IV 11:12:23 CDT Lorene Meryl Sorensen Durbin, DO, FACP CPT-18024 Ofc Vst, Est Level IV 11:46:11 CDT Lorene Meryl Sorensen Durbin, DO, FACP CPT-48002 Ofc Vst, Est Level IV 15:36:14 CDT Lorene Meryl Sorensen Durbin, DO, FACP CPT-03335 Ofc Vst, Est Level IV 11:36:09 [employer] Lorene Meryl Sorensen Durbin, DO, FACP CPT-72226 Ofc Vst, Est Level IV 16:28:10 CDT Lorene Meryl Sorensen Ramakrishna, DO, FACP CPT-10093 Ofc Vst, Est Level IV 15:52:30 CDT Lorene Meryl Sorensen Ramakrishna, DO, FACP CPT-93698 Ofc Vst, Est Level III 11:48:57 CDT Lorene Meryl Sorensen Ramakrishna, DO, FACP CPT-14246 Ofc Vst, Est Level IV 09:15:20 [employer] Lorene Meryl Sorensen Ramakrishna, DO, FACP CPT-24403 Ofc Vst, Est Level IV 16:43:12 [employer] Lorene Sorensen Ramakrishna, DO, FACP CPT-10506 Ofc Vst, Est Level III 14:52:39 CDT Lorene Meryl Sorensen Ramakrishna, DO, FACP CPT-09721 Ofc Vst, Est Level IV 11:27:37 CDT Lorene Meryl Sorensen Ramakrishna, DO, FACP CPT-66709 Ofc Vst, Est Level III 09:53:01 [employer] Lorene Sorensen Ramakrishna, DO, FACP CPT-03598 Ofc Vst, Est Level IV 09:49:25 CDT Lorene Meryl Sorensen Ramakrishna, DO, FACP CPT-71523 Ofc Vst, Est Level IV 11:33:29 CDT Lorene Meryl Sorensen Ramakrishna, DO, FACP CPT-78404 Ofc Vst, Est Level IV 14:11:50 [employer] Lorene Meryl Ramakrishna [employer] [facility] CPT-33975 Ofc Vst, Est Level IV 17:26:08 [employer] Lorene Durbin [facility] [place] CPT-68347 Ofc Vst, Est Level IV 10:40:42 [employer] Lorene Durbin [facility] [place] CPT-61643 Ofc Vst, Est Level IV 15:05:22 CDT Lorene Meryl Durbin [facility] [place] CPT-78215 Ofc Vst, Est Level IV 14:42:32 CDT Lorene Durbin [facility] [place] CPT-83565 Ofc Vst, Est Level III 16:05:07 CDT Lorene Meryl Durbin [facility] [place] CPT-79785 Ofc Vst, Est Level V 17:24:06 CDT Lorene Meryl Durbin [facility] [place] CPT-96568 Ofc Vst, Est Level IV 16:02:46 CDT Lorene Meryl Durbin [facility] [place] CPT-42870 Ofc Vst, Est Level III 12:50:41 [employer] Lorene Durbin [facility] [place] CPT-83956 Ofc Vst, Est Level II 12:09:58 [employer] Lorene Durbin [facility] [place] CPT-40534 Ofc Vst, Est Level IV 09:31:48 [employer] Lorene Durbin [facility] [place] CPT-01627 Ofc Vst, Est Level III 10:36:21 [employer] Lorene Durbin [facility] [place] CPT-75217 Ofc Vst, Est Level IV 15:48:05 CDT Lorene Durbin [facility] [place] CPT-33018 Ofc Vst, Est Level III 11:58:31 CDT Lorene Durbin [facility] [place] CPT-83298 Ofc Vst, Est Level IV 18:14:00 CDT Lorene Durbin [facility] [place] CPT-99888 Ofc Vst, New Level III 19:15:23 [employer] Lorene Durbin [facility] Procedures Code Procedure Name Date Entry Date Standard Description CPT-G0439 Medicare Annual Wellness Visit 14:14:39 CDT CPT-G8445 E-Prescribing Not sent due to no medication given 21:20: 47 CDT CPT-G8445 E-Prescribing Not sent due to no medication given 20:32: 44 [employer] CPT-G8445 E-Prescribing Not sent due to no medication given 14:43: 31 [employer] CPT-G8445 E-Prescribing Not sent due to no medication given 20:01: 57 [employer] CPT-G8445 E-Prescribing Not sent due to no medication given 16:57: 33 CDT CPT-G8445 E-Prescribing Not sent due to no medication given 14:43: 50 CDT CPT-G8445 E-Prescribing Not sent due to no medication given 15:02: 07 CDT CPT-G8443 E-Prescribing Medication Sent 14:44:46 CDT CPT-G8443 E-Prescribing Medication Sent 16:13:39 CDT CPT-23814 Biopsy, skin/subcut/mucous membrane; sngl lsn 15:46:15 CDT CPT-G8445 E-Prescribing Not sent due to no medication given 14:23: 32 CDT CPT-G0438 Medicare Annual Wellness Visit Initial 14:23:32 CDT CPT-G8445 E-Prescribing Not sent due to no medication given 15:57: 50 CDT CPT-G8443 E-Prescribing Medication Sent 15:52:15 [employer] CPT-G8443 E-Prescribing Medication Sent 15:08:06 CDT CPT-71286 Injection, Pneumovax 16:28:10 CDT CPT-G8443 E-Prescribing Medication Sent 15:52:30 CDT CPT-48955 EKG w/ Interpretation 17:24:06 CDT CPT-15414 EKG w/ Interpretation 11:58:31 CDT
--- OUTSIDE RECORDS SUMMARY | 2017-12-16 05:01 | XMS REPORT | Clinical Summary ---
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 [...] Generic Name NDC Status Provider Patient Instruction PREDNISONE 10 MG TAB 2 PO at one time once daily for three days then 1 PO dialy for three days PREDNISONE 15863212067 Active Lorene Durbin SYMBICORT 160-4.5 MCG/ACT AERO 2 puffs BID BUDESONIDE- FORMOTEROL FUMARATE 82144789384 Active Lorene Durbin PULMICORT 0.5 MG/2ML SUSP I VIAL-INHALE ORALLY DAILY BUDESONIDE 15513987550 No Longer Active Lorene Durbin FOLIC ACID 1 MG TABS 1 PO QD FOLIC ACID 42912703859 No Longer Active Lorene Durbin TRAZODONE HCL 100 MG TABS 1 PO AT HS TRAZODONE HCL 02442906883 Active Lorene Durbin PREDNISONE 5 MG TABS 1 PO DAILY PREDNISONE 41934725318 Active Lorene Durbin NOVOLOG FLEXPEN 100 UNIT/ML SOPN INJECT 3 SQ BEFORE MEALS INSULIN ASPART 61946354563 Active Lorene Durbin IPRATROPIUM-ALBUTEROL 0.5-2.5 (3) MG/3ML SOLN 1 VIAL INHALE ORALLY TID 09/17 IPRATROPIUM-ALBUTEROL 09195202852 Active Lorene Durbin DEPAKOTE SPRINKLES 125 MG CPSP 1 TIME DAILY DIVALPROEX SODIUM 69043365706 Active Lorene Sheth Ramakrishna EXELON 4.6 MG/24HR PT24 APPLY PATCH DAILY RIVASTIGMINE 34374675338 Active Lorene Meryl Ramakrishna FOLIC ACID 1 MG TABS 1 PO DAILY FOLIC ACID 67148680236 Active Lorene Meryl Ramakrishna MELATONIN 3 MG TABS 1 PO AT HS FOR INSOMNIA MELATONIN 74039730905 Active Lorene Meryl Ramakrishna MIRALAX POWD 17 GRAMS PO BID POLYETHYLENE GLYCOL 3350 01434498607 Active Lorene Meryl Ramakrishna NORVASC 10 MG TABS 1 PO DAILY AMLODIPINE BESYLATE 10317529523 Active Lorene Meryl Ramakrishna CELEXA 20 MG TABS 1 PO DAILY CITALOPRAM HYDROBROMIDE 75090219368 Active Lorene Merylgladys Durbin PAXIL 20 MG TAB 1 PO DAILY PAROXETINE HCL 97999490221 No Longer Active Lorene Meryl Durbin BISACODYL LAXATIVE 10 MG SUPP 1 VA QD PRN constipation BISACODYL 20474365646 No Longer Active Lorene Meryl Durbin COREG 6.25 MG TABS 1 PO BID CARVEDILOL 12098443563 Active Lorene Meryl Durbin BENADRYL 25 MG CAP 1 PO TID prn DIPHENHYDRAMINE HCL 19242370370 No Longer Active Lorene Meryl Durbin LACTULOSE SOLN 30 ML PO BID PRN Constipation LACTULOSE SOLN 85306348255 No Longer Active Lorene Meryl Durbin LASIX 40 MG TAB 1 PO MWF FUROSEMIDE 87764878284 No Longer Active Lorene Meryl Durbin VITAMIN D 1000 UNIT TABS 1 PO Daily CHOLECALCIFEROL 44958675886 Active Lorene Meryl Durbin ZOCOR 20 MG TABS 1 PO DAILY SIMVASTATIN 52144568665 Active Elizabeth Dixon FINASTERIDE 5 MG TABS 1 PO DAILY FINASTERIDE 52294044196 Active Lorene Meryl Durbin NAMENDA 10 MG TABS 1 PO BID MEMANTINE HCL 49185163740 Active Elizabeth Dixon KENALOG 0.1 % CREA apply to affected areas BID TRIAMCINOLONE ACETONIDE No Longer Active Lorene Meryl Durbni DILANTIN 100 MG CAP 1 PO at 7am and 2 pm and 2 PO at HS PHENYTOIN SODIUM EXTENDED 91981268340 No Longer Active Lorene Meryl Durbin PREDNISONE 20 MG TAB 1 PO daily for 7 days then resume 5mg dosing as previous PREDNISONE 58542613754 No Longer Active Lorenedada Durbin AUGMENTIN 500-125 MG TAB 1 PO BID AMOXICILLIN-POT CLAVULANATE 64949291076 No Longer Active Lorenedada Durbin OCUFLOX 0.3 % SOLN 2 drops in right ear TID for 7 days OFLOXACIN 18610390999 No Longer Active Lorene Meryl Durbin PREDNISONE 20 MG TAB 1 PO daily for 7 days PREDNISONE 18436646952 No Longer Active Lorene Meryl Durbin KENALOG 0.1 % CREA apply to affected areas BID TRIAMCINOLONE ACETONIDE No Longer Active Lorenedada Durbin ATARAX 25 MG TAB 1 PO Q6hrs prn itching HYDROXYZINE HCL No Longer Active Lorenedada Durbin DETROL LA 4 MG CP24 1 PO daily TOLTERODINE TARTRATE 27965367598 No Longer Active Lorene Meryl Durbin FINASTERIDE 5 MG TABS 1 PO BID FINASTERIDE 87390885173 No Longer Active Lorenedada Durbin BACTRIM DS 800-160 MG TAB 1 PO MWF TRIMETHOPRIM- SULFAMETHOXAZOLE 21158259055 No Longer Active Lorene Meryl Durbin NYSTATIN POWD Apply Topically to groin BID for gaulding NYSTATIN 37866180340 No Longer Active Lorenedada Durbin TERBINAFINE HCL 1 % CREA Apply to affected area BID TERBINAFINE HCL 15648776611 No Longer Active Lorenedada Durbin CALTRATE 600 PLUS-VIT D 600-200 MG-IU TABS 1 PO BID CALCIUM-VITAMIN D Active Elizabeth Dixon VALTREX 1 GM TAB 1 PO BID VALACYCLOVIR HCL 58150697143 No Longer Active Lorene Meryl Durbin TESSALON 200 MG CAPS 1 PO TID prn cough BENZONATATE 95238465288 No Longer Active Elizabeth Dixon PREDNISONE 10 MG TABS 1 PO QD PREDNISONE 93232705289 No Longer Active Lorene Meryl Durbin TESSALON 200 MG CAPS 1 PO TID prn cough BENZONATATE 60975143667 No Longer Active Lorene Durbin FLOMAX 0.4 MG CAPS 1 PO QD for urinary retention TAMSULOSIN HCL 51667302707 Active Elizabeth Dixon OMEPRAZOLE 40 MG CPDR 1 PO QD OMEPRAZOLE 26189158198 Active Elizabeth Dixon FERROUS SULFATE 325 (65 FE) MG TABS 1 PO BID FERROUS SULFATE 91491329616 Active Elizabeth Dixon COLACE 100 MG CAPS 1 PO BID prevent constipation DOCUSATE SODIUM 35164540120 Active Elizabeth Dixon ACETAMINOPHEN 325 MG TABS 2 PO Q 4hrs PRN pain or fever ACETAMINOPHEN 16828405238 Active Lorenedada Durbin IMURAN 50 MG TABS 3 po daily AZATHIOPRINE 95155405276 No Longer Active Lorenedada Durbin TOVIAZ 4 MG [id number] 1 po daily FESOTERODINE FUMARATE 08553075530 No Longer Active Lorene Meryl Durbin COREG 12.5 MG TABS 1 po bid CARVEDILOL 17533312137 No Longer Active Lorene Meryl Durbin WAVESENSE PRESTO TEST STRP Check BS Daily DX: DIABETES GLUCOSE BLOOD 71877715883 No Longer Active Lorene Meryl Durbin OMEPRAZOLE 40 MG CPDR 1 PO Daily OMEPRAZOLE 39841065748 No Longer Active Lorene Meryl Durbin FLOMAX 0.4 MG CAPS 1 PO Daily TAMSULOSIN HCL 71936109587 No Longer Active Lorene Meryl Durbin MEPRON 750 MG/5ML SUSP 5 ml PO BID ATOVAQUONE 01527469785 No Longer Active Lorene Meryl Durbin PREDNISONE 5 MG TABS 2 po daily PREDNISONE 71105564494 No Longer Active Lorene Meryl Durbin TERAZOSIN HCL 2 MG CAPS 1 PO qhs TERAZOSIN HCL 25867575362 No Longer Active Lorene Meryl Durbin VITAMIN D 1000 UNIT TABS 1 PO Daily CHOLECALCIFEROL 82848349333 No Longer Active Lorene Meryl Durbin PEPCID 20 MG TAB 1 PO daily FAMOTIDINE 19212798135 No Longer Active Lorene Meryl Durbin VITAMIN B-12 100 MCG TABS 1 po daily CYANOCOBALAMIN 40823018295 No Longer Active Lorene Meryl Durbin IRON 325 (65 FE) MG TABS 1 PO daily FERROUS SULFATE 29487448491 No Longer Active Lorene Meryl Durbin CALCIUM 600 1500 MG TABS 1 PO QAM and 2 PO QHS CALCIUM CARBONATE 10211446876 No Longer Active Lorene Meryl Durbin MULTIVITAMINS TABS 1 po daily MULTIPLE VITAMIN 89022592490 No Longer Active Lorene Meryl Durbin FISH OIL 1000 MG CAPS 1 po daily OMEGA-3 FATTY ACIDS 99913348967 No Longer Active Lorene Meryl Durbin ASPIRIN 81 MG TAB 1 PO QD ASPIRIN 58577630523 No Longer Active Lorene Meryl Durbin NORVASC 5 MG TAB 1 PO Daily AMLODIPINE BESYLATE 73293747878 No Longer Active Lorene Meryl Durbin CLOBETASOL PROPIONATE 0.05 % CREA Apply small amount to affected areas on arms BID CLOBETASOL PROPIONATE 62401231682 No Longer Active Lorene Meryl Durbin LOTRISONE 0.05-1 % CREAM Apply a small amount to affected area on back BID CLOTRIMAZOLE-BETAMETHASONE 56241154629 No Longer Active Lorene Meryl Durbni CYCLOPHOSPHAMIDE 25 MG TABS take 5 tablets once daily CYCLOPHOSPHAMIDE 18336307187 No Longer Active Lorene Meryl Durbin PERCOCET 5-325 MG TAB 1 PO Q 6 hours OXYCODONE- ACETAMINOPHEN 73614652907 No Longer Active Lorene Meryl Durbin VALTREX 1 GM TAB 1 PO BID VALACYCLOVIR HCL 67364900783 No Longer Active Lorene Meryl Durbin ACCUPRIL 10 MG TABS 1 po daily QUINAPRIL HCL 45247703183 No Longer Active Lorene Meryl Durbin COZAAR 25 MG TAB 1 PO daily LOSARTAN POTASSIUM 74048717248 No Longer Active Elizabeth Dixon MAGNESIUM OXIDE 400 MG CAPS 1 PO daily MAGNESIUM OXIDE 02368295672 No Longer Active Lorene Meryl Durbin LOTRISONE 0.05-1 % CREAM Apply to affected areas twice daily prn CLOTRIMAZOLE-BETAMETHASONE 20219166129 No Longer Active Lorenedada Durbin FERROUS SULFATE 100 MG 1 PO daily FERROUS SULFATE 100 MG No Longer Active Lorene Meryl Durbin QUALAQUIN 324 MG CAPS 1 PO QHS prn QUININE SULFATE 34986470666 No Longer Active Lorene Meryl Durbin ROBITUSSIN A-C 10-100 MG/5ML SYRUP 1 teaspoon PO Q 4-6 hr prn ROBITUSSIN A-C 10-100 MG/5ML SYRUP 26426084455 No Longer Active Lorene Meryl Durbin BIAXIN XL PAC 500 MG TB24 2 pills at same time daily for 7 days CLARITHROMYCIN 83360465220 No Longer Active Lorene Meryl Durbin TESSALON 200 MG CAPS 1 PO TID prn cough BENZONATATE 05532516907 No Longer Active Lorene Meryl Durbin ROBITUSSIN A-C 10-100 MG/5ML SYRUP 1 teaspoon PO Q 4-6 hr prn ROBITUSSIN A-C 10-100 MG/5ML SYRUP 76868334074 No Longer Active Lorene Meryl Durbin BIAXIN XL PAC 500 MG TB24 2 pills at same time daily for 7 days CLARITHROMYCIN 63582919227 No Longer Active Lorene Meryl Durbin KEFLEX 500 MG CAP 1 PO TID for 7 days CEPHALEXIN 39185170892 No Longer Active Lorene Meryl Durbin FERROUS SULFATE 325 (65 FE) MG TABS 1 PO daily FERROUS SULFATE 06093398257 No Longer Active Olrene Meryl Durbin CINNAMON 500 MG CAPS 1 po daily CINNAMON 43316291809 No Longer Active Lorene Meryl Durbin XANAX 0.25 MG TABS 1 po q 4-6 hrs prn ALPRAZOLAM 70210990718 No Longer Active Lorene Meryl Durbin TRIAMCINOLONE ACETONIDE 0.1 % OINT Apply as directed TRIAMCINOLONE ACETONIDE 61064858031 No Longer Active Lorene Meryl Durbin KERALAC 50 % GEL as needed UREA 40364137855 No Longer Active Lorene Meryl Durbin AMITRIPTYLINE HCL 25 MG TAB 1 PO daily at night prn AMITRIPTYLINE HCL 18824594029 No Longer Active Lorene Meryl Durbin ZOCOR 5 MG TABS 1 PO QOD (on hold) SIMVASTATIN 06304513787 No Longer Active Lorene Meryl Durbin VIAGRA 50 MG TABS prn SILDENAFIL CITRATE 00462123979 No Longer Active Lorene Meryl Durbin DARVOCET-N 100 100-650 MG TABS 1 po q 6 hrs. prn pain PROPOXYPHENE N-APAP 05877380406 No Longer Active Lorene Meryl Durbin CYCLOBENZAPRINE HCL 10 MG TABS 1 po q 12 hrs. prn CYCLOBENZAPRINE HCL 36367292063 No Longer Active Lorene Meryl Durbin LORTAB 5 5-500 MG TABS 1 as needed HYDROCODONE- ACETAMINOPHEN 41649051083 No Longer Active Lorene Meryl Durbin ALBUTEROL 90 MCG/ACT AERS 2 puffs Q4-6hrs prn ALBUTEROL 42171368790 No Longer Active Lorene Meryl Durbin ROBITUSSIN A-C 10-100 MG/5ML SYRUP 5cc PO Q 4-6 hr prn ROBITUSSIN A-C 10-100 MG/5ML SYRUP 45035149850 No Longer Active Lorene Meryl Durbin ADVAIR DISKUS 100-50 MCG/DOSE MISC 1 puff BID FLUTICASONE-SALMETEROL 47469212422 No Longer Active Lorene Meryl Durbin AUGMENTIN 500-125 MG TABS 1 PO BID AMOXICILLIN-POT CLAVULANATE 20765603430 No Longer Active Lorene Meryl Durbin PLAVIX 75 MG TABS 1 po daily CLOPIDOGREL BISULFATE 13402581947 No Longer Active Lorene Meryl Durbin AMOXIL 500 MG TABS 1 PO TID AMOXICILLIN 95028627938 No Longer Active Lorene Meryl Durbin Immunizations [...] E&M - 3141-9 197 [lb_av] Weight Measured blood pressure, diastolic - 8462-4 78 mm[Hg] BP leahy blood pressure, systolic - 8480-6 132 mm[Hg] BP sys pulse rate E&M - 8867-4 60 /min Heart rate respiratory rate E&M - 9279-1 14 /min Resp rate weight E&M - 3141-9 195 [lb_av] Weight Measured Diagnostic Results Date Name Value Unit Range Description Clinical Lists Update: [facility] - Chemistry Estimated Glomerular Filtration Rate (calc) 36 mL/min/1.73m2 glucose, plasma fasting 143 mg/dL anion gap, serum 12 sodium, serum 137 mmol/L urea nitrogen, blood 30 mg/dL creatinine, serum 2.0 mg/dL carbon dioxide, venous blood 27.0 mmol/L chloride, serum 103 mmol/L calcium, serum 9.2 mg/dL potassium, serum 5.0 mmol/L Clinical Lists Update: [facility] - Hematology leukocyte count, blood 8.2 10*3/mm3 hematocrit, blood 33.4 % erythrocyte (RBC) count 3.54 10*6/mm3 red blood cell distribution width 15.3 % hemoglobin, blood 10.9 g/dL mean corpuscular volume, RBC 94 fL platelet count 131 10*3/mm3 Clinical Lists Update: CBC,[facility] - Chemistry urea nitrogen, blood 27 mg/dL creatinine, serum 1.9 mg/dL potassium, serum 5.0 mmol/L sodium, serum 139 mmol/L anion gap, serum 10 glucose, plasma fasting 133 mg/dL Estimated Glomerular Filtration Rate (calc) 37 mL/min/1.73m2 calcium, serum 9.4 mg/dL chloride, serum 103 mmol/L carbon dioxide, venous blood 31.0 mmol/L Clinical Lists Update: CBC,[facility] - Hematology hematocrit, blood 43 % hemoglobin, blood 13.2 g/dL platelet count 137 10*3/mm3 erythrocyte (RBC) count 4.32 10*6/mm3 leukocyte count, blood 8.6 10*3/mm3 mean corpuscular volume, RBC 100 fL red blood cell distribution width 14.0 % Clinical Lists Update: CBC,BMP,[facility] - Chemistry anion gap, serum 10 potassium, serum 5.0 mmol/L Estimated Glomerular Filtration Rate (calc) 34 mL/min/1.73m2 sodium, serum 139 mmol/L chloride, serum 104 mmol/L creatinine, serum 2.0 mg/dL urea nitrogen, blood 26 mg/dL carbon dioxide, venous blood 30.0 mmol/L calcium, serum 9.3 mg/dL glucose, plasma fasting 150 mg/dL Clinical Lists Update: CBC,BMP,[facility] - Hematology hematocrit, blood 44 % red blood cell distribution width 14.6 % mean corpuscular volume, RBC 101 fL leukocyte count, blood 8.9 10*3/mm3 erythrocyte (RBC) count 4.31 10*6/mm3 platelet count 145 10*3/mm3 hemoglobin, blood 13.4 g/dL Clinical Lists Update: CBC,BMP,[facility] - Urinalysis epithelial cells, urine none /[LPF] hyaline casts, urine none /[LPF] mucus on urinalysis none protein, urine, semiquantitative (dipstick) neg glucose, urine, semiquantitative neg bilirubin, urine neg ketones, urine, by test strip neg nitrite, urine, semiquantitative neg pH, urine, semiquantitative 6.5 specific gravity, urine 1.020 urobilinogen, urine, semiquantitative (dipstick) 0.2 appearance, urine Clear Yellow WBC urine on microscopy none {Cells}/[HPF] RBC urine by microscopy none bacteria, urine microscopy none blood in urine (hemoglobin) by dipstick trace Clinical Lists Update: CBC,CMP,FLP,HGA1C,MICROALBUMIN,FERRITIN - Chemistry HDL cholesterol, serum 33.0 mg/dL ferritin, serum 273.2 ng/mL creatinine, serum 1.5 mg/dL carbon dioxide, venous blood 25.0 mmol/L cholesterol, serum 125 mg/dL chloride, serum 106 mmol/L hemoglobin A1C, blood, as % of total hemoglobin 5.9 % LDL cholesterol, serum 77 mg/dL potassium, serum 3.9 mmol/L protein, total, serum 5.5 g/dL aspartate aminotransferase (SGOT), serum 12 U/L alanine aminotransferase (SGPT), serum 11 U/L bilirubin, serum, total 0.3 mg/dL triglyceride, serum, fasting 76 mg/dL sodium, serum 138 mmol/L anion gap, serum 11 cholesterol/HDL ratio, serum, percent 3.8 glucose, plasma fasting 107 mg/dL Estimated Glomerular Filtration Rate (calc) 48 mL/min/1.73m2 albumin, serum 3.2 g/dL calcium, serum 8.4 mg/dL alkaline phosphatase, serum 26 U/L urea nitrogen, blood 26 mg/dL Clinical Lists Update: CBC,CMP,FLP,HGA1C,MICROALBUMIN,FERRITIN - Hematology platelet count 140 10*3/mm3 hemoglobin, blood 10.3 g/dL hematocrit, blood 33.6 % red blood cell distribution width 15.3 % mean corpuscular volume, RBC 97 fL leukocyte count, blood 6.9 10*3/mm3 erythrocyte (RBC) count 3.47 10*6/mm3 Clinical Lists Update: CBC,CMP,FLP,HGA1C,MICROALBUMIN,FERRITIN - Urinalysis microalbumin, urine, semiquantitative 3.2 mg/dL Clinical Lists Update: CBC,CMP,FLP.UA - Chemistry Estimated Glomerular Filtration Rate (calc) 9.3 mL/min/1.73m2 glucose, plasma fasting 102 mg/dL cholesterol/HDL ratio, serum, percent 4.2 anion gap, serum 8 sodium, serum 140 mmol/L triglyceride, serum, fasting 131 mg/dL bilirubin, serum, [...] serum 35 U/L albumin, serum 3.7 g/dL Clinical Lists Update: CBC,CMP,FLP.UA - Hematology platelet count 137 10*3/mm3 erythrocyte (RBC) count 4.10 10*6/mm3 leukocyte count, blood 7.9 10*3/mm3 mean corpuscular volume, RBC 99 fL red blood cell distribution width 14.2 % hematocrit, blood 41 % hemoglobin, blood 12.9 g/dL Clinical Lists Update: CBC,CMP,FLP.UA - Urinalysis urobilinogen, [...] none /[LPF] epithelial cells, urine 0-5 /[LPF] mucus on urinalysis none blood in urine (hemoglobin) by dipstick trace Clinical Lists Update: CMP - Chemistry Estimated Glomerular Filtration Rate (calc) 44 mL/min/1.73m2 glucose, plasma fasting 89 mg/dL anion gap, serum 12 sodium, serum 140 mmol/L bilirubin, serum, total 0.3 mg/dL alanine aminotransferase (SGPT), serum 9 U/L aspartate aminotransferase (SGOT), serum 11 U/L protein, total, serum 5.1 g/dL potassium, serum 3.9 mmol/L creatinine, serum 1.6 mg/dL carbon dioxide, venous blood 25.0 mmol/L chloride, serum 107 mmol/L calcium, serum 8.1 mg/dL urea nitrogen, blood 21 mg/dL alkaline phosphatase, serum 23 U/L albumin, serum 3.1 g/dL Clinical Lists Update: [facility] - Chemistry potassium, serum 4.1 mmol/L aspartate aminotransferase (SGOT), serum 19 U/L protein, total, serum 6.3 g/dL aspartate aminotransferase (SGOT), serum 18 U/L albumin, serum 3.1 g/dL albumin, serum 3.5 g/dL alkaline phosphatase, serum 24 U/L alkaline phosphatase, serum 30 U/L urea nitrogen, blood 52 mg/dL urea nitrogen, blood 23 mg/dL calcium, serum 9.0 mg/dL calcium, serum 8.9 mg/dL chloride, serum 109 mmol/L chloride, serum 110 mmol/L carbon dioxide, venous blood 27 mmol/L carbon dioxide, venous blood 23 mmol/L creatinine, serum 1.77 mg/dL creatinine, serum 1.76 mg/dL thyroid stimulating hormone, serum 1.59 u[iU]/mL potassium, serum 4.2 mmol/L Estimated Glomerular Filtration Rate (calc) 38 mL/min/1.73m2 Estimated Glomerular Filtration Rate (calc) 38 mL/min/1.73m2 glucose, plasma fasting 111 mg/dL glucose, plasma fasting 125 mg/dL anion gap, serum 11 sodium, serum 144 mmol/L sodium, serum 143 mmol/L bilirubin, serum, total 0.5 mg/dL bilirubin, serum, total 0.5 mg/dL alanine aminotransferase (SGPT), serum 37 U/L alanine aminotransferase (SGPT), serum 21 U/L protein, total, serum 5.4 g/dL Clinical Lists Update: [facility] - Hematology hematocrit, blood 40.6 % hematocrit, blood 38 % platelet count 93 10*3/mm3 hemoglobin, blood 12.6 g/dL hemoglobin, blood 13.5 g/dL platelet count 125 10*3/mm3 erythrocyte (RBC) count 4.28 10*6/mm3 erythrocyte (RBC) count 4.00 10*6/mm3 leukocyte count, blood 9.78 10*3/mm3 leukocyte count, blood 6.5 10*3/mm3 mean corpuscular volume, RBC 94.9 fL mean corpuscular volume, RBC 94 fL red blood cell distribution width 12.9 % red blood cell distribution width 12.8 % Clinical Lists Update: [facility] - Urinalysis RBC urine by microscopy rare protein, urine, semiquantitative (dipstick) neg hyaline casts, urine present /[LPF] epithelial cells, urine 0-2 /[LPF] mucus on urinalysis neg blood in urine (hemoglobin) by dipstick neg WBC urine on microscopy rare {Cells}/[HPF] appearance, urine Clear Yellow urobilinogen, urine, semiquantitative (dipstick) normal specific gravity, urine 1.015 pH, urine, semiquantitative 6 nitrite, urine, semiquantitative neg ketones, urine, by test strip neg bilirubin, urine neg glucose, urine, semiquantitative neg bacteria, urine microscopy few Office Visit: Dr Durbin's Check Up: Established Patient Visit - Chemistry Estimated Glomerular Filtration Rate (calc) 38 mL/min/1.73m2 Estimated Glomerular Filtration Rate (calc) 38 mL/min/1.73m2 albumin, serum 4.0 g/dL albumin, serum 4.2 g/dL alkaline phosphatase, serum 36 U/L alkaline phosphatase, serum 36 U/L urea nitrogen, blood 27 mg/dL urea nitrogen, blood 30 mg/dL calcium, serum 9.1 mg/dL calcium, serum 9.5 mg/dL chloride, serum 107 mmol/L chloride, serum 102 mmol/L cholesterol, serum 157 mg/dL cholesterol, serum 177 mg/dL carbon dioxide, venous blood 28.0 mmol/L glucose, plasma fasting 129 mg/dL glucose, plasma fasting 120 mg/dL anion gap, serum 12 anion gap, serum 10 sodium, serum 139 mmol/L sodium, serum 141 mmol/L triglyceride, serum, fasting 156 mg/dL triglyceride, serum, fasting 109 mg/dL bilirubin, serum, total 0.4 mg/dL bilirubin, serum, total 0.4 mg/dL alanine aminotransferase (SGPT), serum 22 U/L alanine aminotransferase (SGPT), serum 19 U/L aspartate aminotransferase (SGOT), serum 21 U/L aspartate aminotransferase (SGOT), serum 18 U/L protein, total, serum 7.0 g/dL protein, total, serum 6.6 g/dL potassium, serum 4.7 mmol/L potassium, serum 4.3 mmol/L hemoglobin A1C, blood, as % of total hemoglobin 6.2 % hemoglobin A1C, blood, as % of total hemoglobin 6.1 % ferritin, serum 195.9 ng/mL ferritin, serum 180.8 ng/mL creatinine, serum 1.9 mg/dL creatinine, serum 1.9 mg/dL carbon dioxide, venous blood 30.0 mmol/L Office Visit: Dr Durbin's Check Up: Established Patient Visit - Hematology red blood cell distribution width 15.0 % hematocrit, blood 44 % hemoglobin, blood 14.1 g/dL hemoglobin, blood 13.5 g/dL platelet count 146 10*3/mm3 platelet count 149 10*3/mm3 hematocrit, blood 45 % erythrocyte (RBC) count 4.36 10*6/mm3 leukocyte count, blood 7.8 10*3/mm3 leukocyte count, blood 11.1 10*3/mm3 mean corpuscular volume, RBC 98 fL mean corpuscular volume, RBC 102 fL red blood cell distribution width 14.4 % erythrocyte (RBC) count 4.60 10*6/mm3 Encounters Code Encounter Date Provider Facility CPT-63419 Ofc Vst, Est Level III 16:59:41 CDT Lorenedada Durbin DO, FACP CPT-29266 Ofc Vst, Est Level III 14:28:01 CDT Lorenedada Durbin, DO, FACP CPT-18619 Ofc Vst, Est Level III 16:47:49 CDT Lorene Durbin DO, FACP CPT-20721 Ofc Vst, Est Level III 16:04:23 CDT Lorene Durbin DO, FACP CPT-74034 Ofc Vst, Est Level III 19:00:13 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 Lorene Durbin, DO, FACP CPT-13158 Ofc Vst, Est Level III 21:20:47 CDT Lorene Durbin, DO, FACP CPT-08032 Ofc Vst, Est Level III 20:32:44 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 Lorene Durbin DO, FACP CPT-22139 Ofc Vst, Est Level III 14:43:31 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 Lorene Meryl Sorensen Durbin, DO, FACP CPT-57961 Ofc Vst, Est Level III 20:01:57 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 Lorene Meryl Pedersoni S Durbin, DO, FACP CPT-65787 Ofc Vst, Est Level III 16:57:33 CDT Lorene Meryl Pedersoni S Durbin, DO, FACP CPT-86769 Ofc Vst, Est Level III 14:43:50 CDT Lorene Meryl Pedersoni S Durbin, DO, FACP CPT-77395 Ofc Vst, Est Level III 15:02:07 CDT Lorene Meryl Pedersoni S Durbin, DO, FACP CPT-90993 Ofc Vst, Est Level III 14:44:46 CDT Lorene Meryl Paulson S Durbin, DO, FACP CPT-35321 Ofc Vst, Est Level IV 16:13:39 CDT Lorene Meryl Pedersoni S Durbin, DO, FACP CPT-88960 Ofc Vst, Est Level III 11:48:41 CDT Lorene Meryl Paulson S Durbin, DO, FACP CPT-62634 Ofc Vst, Est Level III 15:46:15 CDT Lorene Meryl Paulson S Udrbin, DO, FACP CPT-45285 Ofc Vst, Est Level IV 15:57:50 CDT Lorene Meryl Paulson S Durbin, DO, FACP CPT-83118 Ofc Vst, Est Level III 16:05:36 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 Lorene Meryl Pedersoni S Durbin, DO, FACP CPT-83709 Ofc Vst, Est Level IV 15:52:15 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 Lorene Meryl Pedersoni S Durbin, DO, FACP CPT-94193 Ofc Vst, Est Level III 15:08:06 CDT Lorenedada Sorensen Durbin, DO, FACP CPT-35039 Ofc Vst, Est Level IV 15:06:29 CDT Lorene Meryl Sorensen Durbin, DO, FACP CPT-21272 Ofc Vst, Est Level IV 13:29:16 CDT Lorenedada Sorensen Durbin, DO, FACP CPT-80702 Ofc Vst, Est Level V 13:50:55 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 Lorene Sorensen Durbin, DO, FACP CPT-59175 Ofc Vst, Est Level IV 11:10:14 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 Lorene Sorensen Durbin, DO, FACP CPT-63994 Ofc Vst, Est Level III 15:28:22 CDT Lorenedada Sorensen Ramakrishna, DO, FACP CPT-46897 Ofc Vst, New Level IV 14:17:27 CDT Lorene Meryl Sorensen Ramakrishna, DO, FACP CPT-67095 Ofc Vst, New Level II 14:17:27 CDT Lorenedada Sorensen Durbin, DO, FACP CPT-46696 Ofc Vst, Est Level IV 10:59:16 CDT Lorene Sorensen Ramakrishna, DO, FACP CPT-75492 Ofc Vst, Est Level II 16:12:29 CDT Lorenedada Sorensen Durbin, DO, FACP CPT-20466 Ofc Vst, Est Level IV 10:53:48 CDT Lorene Sorensen Ramakrishna, DO, FACP CPT-30443 Office Consult, Level III 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 Lorene Sorensen Ramakrishna, DO, FACP CPT-55405 Ofc Vst, Est Level IV 11:12:23 CDT Lorenedada Sorensen Ramakrishna, DO, FACP CPT-10724 Ofc Vst, Est Level IV 11:46:11 CDT Lorene Meryl Sorensen Durbin, DO, FACP CPT-01610 Ofc Vst, Est Level IV 15:36:14 CDT Lorene Meryl Sorensen Durbin, DO, FACP CPT-53396 Ofc Vst, Est Level IV 11:36:09 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 Lorenedada Sorensen Durbin, DO, FACP CPT-90350 Ofc Vst, Est Level IV 16:28:10 CDT Lorene Meryl Sorensen Durbin, DO, FACP CPT-44884 Ofc Vst, Est Level IV 15:52:30 CDT Lorene Meryl Sorensen Durbin, DO, FACP CPT-29729 Ofc Vst, Est Level III 11:48:57 CDT Lorene Meryl Sorensen Durbin, DO, FACP CPT-45909 Ofc Vst, Est Level IV 09:15:20 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 Lorene Sorensen Durbin, DO, FACP CPT-49651 Ofc Vst, Est Level IV 16:43:12 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 Lorene Sorensen Durbin, DO, FACP CPT-30930 Ofc Vst, Est Level III 14:52:39 CDT Lorene Meryl Sorensen Durbin, DO, FACP CPT-20039 Ofc Vst, Est Level IV 11:27:37 CDT Lorene Meryl Sorensen Durbin, DO, FACP CPT-06067 Ofc Vst, Est Level III 09:53:01 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 Lorene Sorensen Durbin, DO, FACP CPT-20463 Ofc Vst, Est Level IV 09:49:25 CDT Lorene Meryl Sorensen Durbin, DO, FACP CPT-36952 Ofc Vst, Est Level IV 11:33:29 CDT Lorenedaad Durbin DO, FACP CPT-89147 Ofc Vst, Est Level IV 14:11:50 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 Lorene Durbin [facility] [place] CPT-61070 Ofc Vst, Est Level IV 17:26:08 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 Lorene Durbin [facility] [place] CPT-75154 Ofc Vst, Est Level IV 10:40:42 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 Lorene Durbin [facility] [place] CPT-88479 Ofc Vst, Est Level IV 15:05:22 CDT Lorene Durbin [facility] [place] CPT-42937 Ofc Vst, Est Level IV 14:42:32 CDT Lorene Durbin [facility] [place] CPT-19478 Ofc Vst, Est Level III 16:05:07 CDT Lorenedada Durbin [facility] [place] CPT-34360 Ofc Vst, Est Level V 17:24:06 CDT Lorenedada Durbin [facility] [place] CPT-85326 Ofc Vst, Est Level IV 16:02:46 CDT Lorene Durbin [facility] [place] CPT-21055 Ofc Vst, Est Level III 12:50:41 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 Lorene Durbin [facility] [place] CPT-83838 Ofc Vst, Est Level II 12:09:58 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 Lorene Durbin [facility] [place] CPT-26318 Ofc Vst, Est Level IV 09:31:48 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 Lorene Durbin [facility] [place] CPT-55077 Ofc Vst, Est Level III 10:36:21 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 Lorene Durbin [facility] [place] CPT-33031 Ofc Vst, Est Level IV 15:48:05 CDT Lorene Durbin [facility] [place] CPT-69675 Ofc Vst, Est Level III 11:58:31 CDT Lorene Durbin [facility] [place] CPT-33222 Ofc Vst, Est Level IV 18:14:00 CDT Lorene Durbin [facility] [place] CPT-72357 Ofc Vst, New Level III 19:15:23 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 Lorene Durbin [facility] [place] Procedures Code Procedure Name Date Entry Date Standard Description CPT-G0439 Medicare Annual Wellness Visit 14:14:39 CDT CPT-G8445 E-Prescribing Not sent due to no medication given 21:20: 47 CDT CPT-G8445 E-Prescribing Not sent due to no medication given 20:32: 44 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 CPT-G8445 E-Prescribing Not sent due to no medication given 14:43: 31 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 CPT-G8445 E-Prescribing Not sent due to no medication given 20:01: 57 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 CPT-G8445 E-Prescribing Not sent due to no medication given 16:57: 33 CDT CPT-G8445 E-Prescribing Not sent due to no medication given 14:43: 50 CDT CPT-G8445 E-Prescribing Not sent due to no medication given 15:02: 07 CDT CPT-G8443 E-Prescribing Medication Sent 14:44:46 CDT CPT-G8443 E-Prescribing Medication Sent 16:13:39 CDT CPT-64842 Biopsy, skin/subcut/mucous membrane; sngl lsn 15:46:15 CDT CPT-G8445 E-Prescribing Not sent due to no medication given 14:23: 32 CDT CPT-G0438 Medicare Annual Wellness Visit Initial 14:23:32 CDT CPT-G8445 E-Prescribing Not sent due to no medication given 15:57: 50 CDT CPT-G8443 E-Prescribing Medication Sent 15:52:15 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 CPT-G8443 E-Prescribing Medication Sent 15:08:06 CDT CPT-98500 Injection, Pneumovax 16:28:10 CDT CPT-G8443 E-Prescribing Medication Sent 15:52:30 CDT CPT-38417 EKG w/ Interpretation 17:24:06 CDT CPT-95047 EKG w/ Interpretation 11:58:31 CDT
--- OUTSIDE RECORDS SUMMARY | 2017-12-16 05:02 | XMS REPORT | Clinical Summary ---
Author Author User, NICO Organization Lorene Durbin DO, FACP Address Unknown [...] HYPERCHOLESTEROLEMIA 272.0 Active Lorene Durbin Pure hypercholesterolemia Medication List Medication Instructions Start Date Stop Date Generic Name NDC Status Provider Patient Instruction BISACODYL LAXATIVE 10 MG SUPP 1 TN QD PRN constipation BISACODYL [id number] No Longer Active Lorene Durbin PREDNISONE 2.5 MG TABS 1 PO DAILY PREDNISONE 78045113942 Active Lorenedada Durbin COREG 6.25 MG TABS 1 PO BID CARVEDILOL 62459300025 Active Lorenedada Durbin BENADRYL 25 MG CAP 1 PO TID prn DIPHENHYDRAMINE HCL 26434524363 No Longer Active Lorenedada Durbin LACTULOSE SOLN 30 ML PO BID PRN Constipation LACTULOSE SOLN 40733191284 No Longer Active Lorene Durbin LASIX 40 MG TAB 1 PO MWF FUROSEMIDE 75650266252 No Longer Active Lorene Durbin VITAMIN D 1000 UNIT TABS 1 PO Daily CHOLECALCIFEROL 42645042292 Active Lorene Durbin ZOCOR 20 MG TABS 1 PO DAILY SIMVASTATIN 03296472990 Active Elizabeth Dixon FINASTERIDE 5 MG TABS 1 PO DAILY FINASTERIDE 77903321864 Active Lorene Durbin NAMENDA 10 MG TABS 1 PO BID MEMANTINE HCL 93350600778 Active Elizabeth Dixon KENALOG 0.1 % CREA apply to affected areas BID TRIAMCINOLONE ACETONIDE No Longer Active Lorene Durbin DILANTIN 100 MG CAP 1 PO at 7am and 2 pm and 2 PO at HS PHENYTOIN SODIUM EXTENDED 31474836503 No Longer Active Lorene Durbin PREDNISONE 20 MG TAB 1 PO daily for 7 days then resume 5mg dosing as previous PREDNISONE 20237509637 No Longer Active Lorene Meryl Durbin AUGMENTIN 500-125 MG TAB 1 PO BID AMOXICILLIN-POT CLAVULANATE 84177348856 No Longer Active Lorene Meryl Durbin OCUFLOX 0.3 % SOLN 2 drops in right ear TID for 7 days OFLOXACIN 61976853568 No Longer Active Lorene Meryl Durbin PREDNISONE 20 MG TAB 1 PO daily for 7 days PREDNISONE 87544770845 No Longer Active Lorene Meryl Durbin KENALOG 0.1 % CREA apply to affected areas BID TRIAMCINOLONE ACETONIDE No Longer Active Lorene Meryl Durbin ATARAX 25 MG TAB 1 PO Q6hrs prn itching HYDROXYZINE HCL No Longer Active Lorene Meryl Durbin DETROL LA 4 MG CP24 1 PO daily TOLTERODINE TARTRATE 49041502772 No Longer Active Lorene Meryl Durbin FINASTERIDE 5 MG TABS 1 PO BID FINASTERIDE 56240136786 No Longer Active Lorenedada Durbin BACTRIM DS 800-160 MG TAB 1 PO MWF TRIMETHOPRIM- SULFAMETHOXAZOLE 02965956810 No Longer Active Lorene Meryl Durbin NYSTATIN POWD Apply Topically to groin BID for gaulding NYSTATIN 67284959040 No Longer Active Lorene Meryl Durbin TERBINAFINE HCL 1 % CREA Apply to affected area BID TERBINAFINE HCL 74097360293 No Longer Active Lorene Meryl Durbin CALTRATE 600 PLUS-VIT D 600-200 MG-IU TABS 1 PO BID CALCIUM-VITAMIN D Active Elizabeth Dixon VALTREX 1 GM TAB 1 PO BID VALACYCLOVIR HCL 14159483649 No Longer Active Lorene Meryl Durbin TESSALON 200 MG CAPS 1 PO TID prn cough BENZONATATE 54045059926 No Longer Active Elizabethjenn Dixon PREDNISONE 10 MG TABS 1 PO QD PREDNISONE 45596114380 No Longer Active Lorene Durbin PAXIL 20 MG TAB 1 PO DAILY PAROXETINE HCL 53887922021 Active Elizabeth Dixon TESSALON 200 MG CAPS 1 PO TID prn cough BENZONATATE 52886794553 No Longer Active Lorenedada Durbin FLOMAX 0.4 MG CAPS 1 PO QD for urinary retention TAMSULOSIN HCL 92457575828 Active Elizabeth Lizarragatis OMEPRAZOLE 40 MG CPDR 1 PO QD OMEPRAZOLE 21724917818 Active Elizabeth Lizarragatis FOLIC ACID 1 MG TABS 1 PO QD FOLIC ACID 99942216738 Active Elizabeth Dixon FERROUS SULFATE 325 (65 FE) MG TABS 1 PO BID FERROUS SULFATE 02496500950 Active Elizabeth Dixon COLACE 100 MG CAPS 1 PO BID prevent constipation DOCUSATE SODIUM 58202665851 Active Elizabeth Dixon ACETAMINOPHEN 325 MG TABS 2 PO Q 4hrs PRN pain or fever ACETAMINOPHEN 61830849577 Active Lorenedada Durbin IMURAN 50 MG TABS 3 po daily AZATHIOPRINE 27459853488 No Longer Active Lorenedada Durbin TOVIAZ 4 MG [id number] 1 po daily FESOTERODINE FUMARATE 06479520957 No Longer Active Lorenedada Durbin COREG 12.5 MG TABS 1 po bid CARVEDILOL 51899338746 No Longer Active Lorene Durbin WAVESENSE PRESTO TEST STRP Check BS Daily DX: DIABETES GLUCOSE BLOOD 49471134043 No Longer Active Lorene Durbin OMEPRAZOLE 40 MG CPDR 1 PO Daily OMEPRAZOLE 92032742255 No Longer Active Lorenedada Durbin FLOMAX 0.4 MG CAPS 1 PO Daily TAMSULOSIN HCL 24038128892 No Longer Active Lorene Meryl Durbin MEPRON 750 MG/5ML SUSP 5 ml PO BID ATOVAQUONE 47683086563 No Longer Active Lorene Meryl Durbin PREDNISONE 5 MG TABS 2 po daily PREDNISONE 06182317763 No Longer Active Lorene Meryl Durbin TERAZOSIN HCL 2 MG CAPS 1 PO qhs TERAZOSIN HCL 59445596851 No Longer Active Lorene Meryl Durbin VITAMIN D 1000 UNIT TABS 1 PO Daily CHOLECALCIFEROL 77823542608 No Longer Active Lorene Meryl Durbin PEPCID 20 MG TAB 1 PO daily FAMOTIDINE 35966153731 No Longer Active Lorene Meryl Durbin VITAMIN B-12 100 MCG TABS 1 po daily CYANOCOBALAMIN 87828644299 No Longer Active Lorene Meryl Durbin IRON 325 (65 FE) MG TABS 1 PO daily FERROUS SULFATE 80769505448 No Longer Active Lorene Meryl Durbin CALCIUM 600 1500 MG TABS 1 PO QAM and 2 PO QHS CALCIUM CARBONATE 55702795406 No Longer Active Lorene Meryl Durbin MULTIVITAMINS TABS 1 po daily MULTIPLE VITAMIN 57143040389 No Longer Active Lorene Meryl Durbin FISH OIL 1000 MG CAPS 1 po daily OMEGA-3 FATTY ACIDS 65555405443 No Longer Active Lorene Meryl Durbin ASPIRIN 81 MG TAB 1 PO QD ASPIRIN 83021530767 No Longer Active Lorene Meryl Durbin NORVASC 5 MG TAB 1 PO Daily AMLODIPINE BESYLATE 13346464318 No Longer Active Lorene Meryl Durbin CLOBETASOL PROPIONATE 0.05 % CREA Apply small amount to affected areas on arms BID CLOBETASOL PROPIONATE 42437179576 No Longer Active Lorene Meryl Durbin LOTRISONE 0.05-1 % CREAM Apply a small amount to affected area on back BID CLOTRIMAZOLE-BETAMETHASONE 12227306822 No Longer Active Lorene Meryl Durbin CYCLOPHOSPHAMIDE 25 MG TABS take 5 tablets once daily CYCLOPHOSPHAMIDE 06645719277 No Longer Active Lorene Meryl Durbin PERCOCET 5-325 MG TAB 1 PO Q 6 hours OXYCODONE- ACETAMINOPHEN 44258090482 No Longer Active Lorene Meryl Durbin VALTREX 1 GM TAB 1 PO BID VALACYCLOVIR HCL 45652699796 No Longer Active Lorene Meryl Durbin ACCUPRIL 10 MG TABS 1 po daily QUINAPRIL HCL 75469871730 No Longer Active Lorene Meryl Durbin COZAAR 25 MG TAB 1 PO daily LOSARTAN POTASSIUM 51250952949 No Longer Active Elizabeth Dixon MAGNESIUM OXIDE 400 MG CAPS 1 PO daily MAGNESIUM OXIDE 17972809996 No Longer Active Lorene Meryl Durbin LOTRISONE 0.05-1 % CREAM Apply to affected areas twice daily prn CLOTRIMAZOLE-BETAMETHASONE 38680865045 No Longer Active Lorenedada Durbin FERROUS SULFATE 100 MG 1 PO daily FERROUS SULFATE 100 MG No Longer Active Lorene Meryl Durbin QUALAQUIN 324 MG CAPS 1 PO QHS prn QUININE SULFATE 27370290614 No Longer Active Lorene Meryl Durbin ROBITUSSIN A-C 10-100 MG/5ML SYRUP 1 teaspoon PO Q 4-6 hr prn ROBITUSSIN A-C 10-100 MG/5ML SYRUP 05141718442 No Longer Active Lorene Meryl Durbin BIAXIN XL PAC 500 MG TB24 2 pills at same time daily for 7 days CLARITHROMYCIN 69750403816 No Longer Active Lorene Meryl Durbin TESSALON 200 MG CAPS 1 PO TID prn cough BENZONATATE 46135096055 No Longer Active Lorene Meryl Durbin ROBITUSSIN A-C 10-100 MG/5ML SYRUP 1 teaspoon PO Q 4-6 hr prn ROBITUSSIN A-C 10-100 MG/5ML SYRUP 36504321823 No Longer Active Lorene Meryl Durbin BIAXIN XL PAC 500 MG TB24 2 pills at same time daily for 7 days CLARITHROMYCIN 16978781393 No Longer Active Lorene Mreyl Durbin KEFLEX 500 MG CAP 1 PO TID for 7 days CEPHALEXIN 91234174003 No Longer Active Lorene Meryl Durbin FERROUS SULFATE 325 (65 FE) MG TABS 1 PO daily FERROUS SULFATE 45603071152 No Longer Active Lorene Meryl Durbin CINNAMON 500 MG CAPS 1 po daily CINNAMON 69272746545 No Longer Active Lorene Meryl Durbin XANAX 0.25 MG TABS 1 po q 4-6 hrs prn ALPRAZOLAM 34246094514 No Longer Active Lorene Meryl Durbin TRIAMCINOLONE ACETONIDE 0.1 % OINT Apply as directed TRIAMCINOLONE ACETONIDE 37294385688 No Longer Active Lorene Meryl Durbin KERALAC 50 % GEL as needed UREA 86825327470 No Longer Active Lorene Meryl Durbin AMITRIPTYLINE HCL 25 MG TAB 1 PO daily at night prn AMITRIPTYLINE HCL 75441932474 No Longer Active Lorene Meryl Durbin ZOCOR 5 MG TABS 1 PO QOD (on hold) SIMVASTATIN 06090587758 No Longer Active Lorene Meryl Durbin VIAGRA 50 MG TABS prn SILDENAFIL CITRATE 28967257984 No Longer Active Lorene Meryl Durbin DARVOCET-N 100 100-650 MG TABS 1 po q 6 hrs. prn pain PROPOXYPHENE N-APAP 81199048843 No Longer Active Lorenedada Durbin CYCLOBENZAPRINE HCL 10 MG TABS 1 po q 12 hrs. prn CYCLOBENZAPRINE HCL 36245275070 No Longer Active Lorene Meryl Durbin LORTAB 5 5-500 MG TABS 1 as needed HYDROCODONE- ACETAMINOPHEN 77225644703 No Longer Active Lorene Meryl Durbin ALBUTEROL 90 MCG/ACT AERS 2 puffs Q4-6hrs prn ALBUTEROL 21049774343 No Longer Active Lorene Meryl Durbin ROBITUSSIN A-C 10-100 MG/5ML SYRUP 5cc PO Q 4-6 hr prn ROBITUSSIN A-C 10-100 MG/5ML SYRUP 32939237054 No Longer Active Lorenedada Durbin ADVAIR DISKUS 100-50 MCG/DOSE MISC 1 puff BID FLUTICASONE-SALMETEROL 50664206533 No Longer Active Lorene Meryl Durbin AUGMENTIN 500-125 MG TABS 1 PO BID AMOXICILLIN-POT CLAVULANATE 03342553138 No Longer Active Lorene Meryl Durbin PLAVIX 75 MG TABS 1 po daily CLOPIDOGREL BISULFATE 80805730472 No Longer Active Lorene Meryl Durbin AMOXIL 500 MG TABS 1 PO TID AMOXICILLIN 43200881469 No Longer Active Lorenedada Durbin Immunizations Vaccine Administration Date Value Standard Description Influenza vaccine given done influenza virus vaccine, unspecified formulation Influenza vaccine given done influenza virus vaccine, unspecified formulation pneumococcal immunization administered Dr. Durbin pneumococcal polysaccharide vaccine, 23 valent pneumococcal immunization administered Disscused pneumococcal polysaccharide vaccine, 23 valent Vital Signs Date Name Value Unit Range Description blood pressure, diastolic - 8462-4 70 mm[Hg] [...] Description Clinical Lists Update: BMP - Chemistry calcium, serum 9.2 mg/dL carbon dioxide, venous blood 27.0 mmol/L Estimated Glomerular Filtration Rate (calc) 36 mL/min/1.73m2 creatinine, serum 2.0 mg/dL glucose, plasma fasting 143 mg/dL potassium, serum 5.0 mmol/L sodium, serum 137 mmol/L urea nitrogen, blood 30 mg/dL chloride, serum 103 mmol/L anion gap, serum 12 Clinical Lists Update: CBC,BMP DR [facility] - Chemistry creatinine, serum 1.9 mg/dL potassium, serum 5.0 mmol/L anion gap, serum 10 urea nitrogen, blood 27 mg/dL calcium, serum 9.4 mg/dL sodium, serum 139 mmol/L Estimated Glomerular Filtration Rate (calc) 37 mL/min/1.73m2 chloride, serum 103 mmol/L glucose, plasma fasting 133 mg/dL carbon dioxide, venous blood 31.0 mmol/L Clinical Lists Update: CBC,[facility] - Hematology hematocrit, blood 43 % hemoglobin, blood 13.2 g/dL red blood cell distribution width 14.0 % platelet count 137 10*3/mm3 mean corpuscular volume, RBC 100 fL leukocyte count, blood 8.6 10*3/mm3 erythrocyte (RBC) count 4.32 10*6/mm3 Clinical Lists Update: CBC,BMP,UA DR [facility] - Chemistry urea nitrogen, blood 26 mg/dL calcium, serum 9.3 mg/dL chloride, serum 104 mmol/L carbon dioxide, venous blood 30.0 mmol/L creatinine, serum 2.0 mg/dL potassium, serum 5.0 mmol/L sodium, serum 139 mmol/L anion gap, serum 10 glucose, plasma fasting 150 mg/dL Estimated Glomerular Filtration Rate (calc) 34 mL/min/1.73m2 Clinical Lists Update: CBC,BMP,UA DR [facility] - Hematology platelet count 145 10*3/mm3 leukocyte count, blood 8.9 10*3/mm3 hematocrit, blood 44 % erythrocyte (RBC) count 4.31 10*6/mm3 red blood cell distribution width 14.6 % hemoglobin, blood 13.4 g/dL mean corpuscular volume, RBC 101 fL Clinical Lists Update: CBC,BMP,UA DR [facility] - Urinalysis appearance, urine Clear Yellow urobilinogen, urine, semiquantitative (dipstick) 0.2 specific gravity, urine 1.020 pH, urine, semiquantitative 6.5 nitrite, urine, semiquantitative neg ketones, urine, by test strip neg bilirubin, urine neg glucose, urine, semiquantitative neg WBC urine on microscopy none {Cells}/[HPF] RBC urine by microscopy none hyaline casts, urine none /[LPF] epithelial cells, urine none /[LPF] mucus on urinalysis none blood in urine (hemoglobin) by dipstick trace protein, urine, semiquantitative (dipstick) neg bacteria, urine microscopy none Clinical Lists Update: CBC,CMP,FLP,TSH,HgA1c,Ferritin - Chemistry Estimated Glomerular Filtration Rate (calc) 38 mL/min/1.73m2 glucose, plasma fasting 115 mg/dL cholesterol/HDL ratio, serum, percent 4.1 anion gap, serum 11 sodium, serum 141 mmol/L triglyceride, serum, fasting 129 mg/dL bilirubin, serum, total 0.4 mg/dL alanine aminotransferase (SGPT), serum 18 U/L aspartate aminotransferase (SGOT), serum 18 U/L protein, total, serum 6.5 g/dL potassium, serum 4.6 mmol/L LDL cholesterol, serum 99 mg/dL thyroid stimulating hormone, serum 3.61 u[iU]/mL hemoglobin A1C, blood, as % of total hemoglobin 6.1 % HDL cholesterol, serum 40.0 mg/dL ferritin, serum 154.9 ng/mL creatinine, serum 1.9 mg/dL carbon dioxide, venous blood 28.0 mmol/L cholesterol, serum 165 mg/dL chloride, serum 107 mmol/L calcium, serum 9.0 mg/dL urea nitrogen, blood 28 mg/dL alkaline phosphatase, serum 34 U/L albumin, serum 3.9 g/dL Clinical Lists Update: CBC,CMP,FLP,TSH,HgA1c,Ferritin - Hematology platelet count 132 10*3/mm3 red blood cell distribution width 13.8 % mean corpuscular volume, RBC 97 fL hematocrit, blood 40 % leukocyte count, blood 7.5 10*3/mm3 hemoglobin, blood 12.6 g/dL erythrocyte (RBC) count 4.10 10*6/mm3 Clinical Lists Update: CBC,CMP,FLP.UA - Chemistry glucose, plasma fasting 102 mg/dL Estimated Glomerular Filtration Rate (calc) 9.3 mL/min/1.73m2 albumin, serum 3.7 g/dL alkaline phosphatase, serum 35 U/L urea nitrogen, blood 27 mg/dL calcium, serum 9.3 mg/dL chloride, serum 106 mmol/L cholesterol, serum 167 mg/dL cholesterol/HDL ratio, serum, percent 4.2 anion [...] mg/dL carbon dioxide, venous blood 31.0 mmol/L Clinical Lists Update: CBC,CMP,FLP.UA - Hematology red blood cell distribution width 14.2 % hematocrit, blood 41 % mean corpuscular volume, RBC 99 fL hemoglobin, blood 12.9 g/dL leukocyte count, blood 7.9 10*3/mm3 platelet count 137 10*3/mm3 erythrocyte (RBC) count 4.10 10*6/mm3 Clinical Lists Update: CBC,CMP,FLP.UA - Urinalysis mucus on urinalysis none blood in urine (hemoglobin) by dipstick trace protein, urine, semiquantitative (dipstick) neg glucose, urine, semiquantitative neg bilirubin, urine neg ketones, urine, by test strip neg nitrite, urine, semiquantitative neg pH, urine, semiquantitative 7.0 specific gravity, urine 1.015 urobilinogen, urine, semiquantitative (dipstick) 0.2 appearance, urine Clear Yellow WBC urine on microscopy none {Cells}/[HPF] RBC urine by microscopy none epithelial cells, urine 0-5 /[LPF] hyaline casts, urine none /[LPF] bacteria, urine microscopy none Clinical Lists Update: [facility] - [...] - Hematology red blood cell distribution width 12.8 % hematocrit, blood 38 % hemoglobin, blood 12.6 g/dL platelet count 125 10*3/mm3 erythrocyte (RBC) count 4.00 10*6/mm3 leukocyte count, blood 6.5 10*3/mm3 mean corpuscular volume, RBC 94 fL Clinical Lists Update: [facility] - Urinalysis specific gravity, urine 1.015 pH, urine, semiquantitative 6 nitrite, urine, semiquantitative neg ketones, urine, by test strip neg bilirubin, urine neg glucose, urine, semiquantitative neg protein, urine, semiquantitative (dipstick) neg blood in urine (hemoglobin) by dipstick neg urobilinogen, urine, semiquantitative (dipstick) normal appearance, urine Clear Yellow WBC urine on microscopy rare {Cells}/[HPF] RBC urine by microscopy rare bacteria, urine microscopy few mucus on urinalysis neg epithelial cells, urine 0-2 /[LPF] hyaline casts, urine present /[LPF] Office Visit: Dr Durbin's Check Up: Established [...] 10*6/mm3 Encounters Code Encounter Date Provider Facility CPT-02327 Ofc Vst, Est Level III 16:04:23 CDT Lorene MerylJamison Levinener, DO, FACP CPT-04729 Ofc Vst, Est Level III 19:00:13 [facility] Lorenedada Durbin, DO, FACP CPT-71401 Ofc Vst, Est Level III 21:20:47 CDT Lorene Meryl Durbin, DO, FACP CPT-16761 Ofc Vst, Est Level III 20:32:44 [facility] Lorene Durbin, DO, FACP CPT-61182 Ofc Vst, Est Level III 14:43:31 [facility] Lorene Durbin, DO, FACP CPT-28684 Ofc Vst, Est Level III 20:01:57 [facility] Lorene Durbin, DO, FACP CPT-97858 Ofc Vst, Est Level III 16:57:33 CDT Lorene Durbin, DO, FACP CPT-83137 Ofc Vst, Est Level III 14:43:50 CDT Lorenedada Durbin, DO, FACP CPT-31763 Ofc Vst, Est Level III 15:02:07 CDT Lorenedada Durbin, DO, FACP CPT-58475 Ofc Vst, Est Level III 14:44:46 CDT Lorene Durbin, DO, FACP CPT-30832 Ofc Vst, Est Level IV 16:13:39 CDT Lorenedada Durbin, DO, FACP CPT-22888 Ofc Vst, Est Level III 11:48:41 CDT Lorene Meryl Sorensen Durbin, DO, FACP CPT-44992 Ofc Vst, Est Level III 15:46:15 CDT Lorene Meryl Pedersoni S Durbin, DO, FACP CPT-46054 Ofc Vst, Est Level IV 15:57:50 CDT Lorene Meryl Paulson S Durbin, DO, FACP CPT-41856 Ofc Vst, Est Level III 16:05:36 [facility] Lorene Meryl Pedersoni S Durbin, DO, FACP CPT-82309 Ofc Vst, Est Level IV 15:52:15 [facility] Lorene Meryl Pedersoni S Durbin, DO, FACP CPT-70375 Ofc Vst, Est Level III 15:08:06 CDT Lorene Meryl Sorensen Durbin, DO, FACP CPT-00576 Ofc Vst, Est Level IV 15:06:29 CDT Lorene Meryl Pedersoni S Durbin, DO, FACP CPT-27588 Ofc Vst, Est Level IV 13:29:16 CDT Lorene Meryl Paulson S Durbin, DO, FACP CPT-19639 Ofc Vst, Est Level V 13:50:55 [facility] Lorene Meryl Paulson S Durbin, DO, FACP CPT-65207 Ofc Vst, Est Level IV 11:10:14 [facility] Lorene Meryl Paulson S Durbin, DO, FACP CPT-23593 Ofc Vst, Est Level III 15:28:22 CDT Lorene Meryl Paulson S Durbin, DO, FACP CPT-30000 Ofc Vst, New Level IV 14:17:27 CDT Lorene Meryl Paulson S Ramakrishna, DO, FACP CPT-27618 Ofc Vst, New Level II 14:17:27 CDT Lorenedada Sorensen Durbin, DO, FACP CPT-86684 Ofc Vst, Est Level IV 10:59:16 CDT Lorene Meryl Sorensen Durbin, DO, FACP CPT-72937 Ofc Vst, Est Level II 16:12:29 CDT Lorene Meryl Sorensen Durbin, DO, FACP CPT-88959 Ofc Vst, Est Level IV 10:53:48 CDT Lorene Meryl Sorensen Ramakrishna, DO, FACP CPT-77415 Office Consult, Level III 11:11:19 [facility] Lorene Sorensen Ramakrishna, DO, FACP CPT-95578 Ofc Vst, Est Level IV 11:12:23 CDT Lorenedada Sorensen Ramakrishna, DO, FACP CPT-60374 Ofc Vst, Est Level IV 11:46:11 CDT Lorenedada Sorensen Ramakrishna, DO, FACP CPT-44294 Ofc Vst, Est Level IV 15:36:14 CDT Lorene Meryl Sorensen Durbin, DO, FACP CPT-30112 Ofc Vst, Est Level IV 11:36:09 [facility] Lorene Sorensen Ramakrishna, DO, FACP CPT-91928 Ofc Vst, Est Level IV 16:28:10 CDT Lorene Meryl Sorensen Durbin, DO, FACP CPT-68109 Ofc Vst, Est Level IV 15:52:30 CDT Lorene Meryl Sorensen Durbin, DO, FACP CPT-20104 Ofc Vst, Est Level III 11:48:57 CDT Lorene Meryl Sorensen Durbin, DO, FACP CPT-03270 Ofc Vst, Est Level IV 09:15:20 [facility] Lorene Meryl Sorensen Ramakrishna, DO, FACP CPT-79776 Ofc Vst, Est Level IV 16:43:12 [facility] Lorenedada Sheth Ramakrishna Lorene Edu Ramakrishna, DO, FACP CPT-93998 Ofc Vst, Est Level III 14:52:39 CDT Lorene Sheth Durbin Lorene Edu Ramakrishna, DO, FACP CPT-21636 Ofc Vst, Est Level IV 11:27:37 CDT Lorene Meryl Levinener Lorene Sorensen Ramakrishna, DO, FACP CPT-55981 Ofc Vst, Est Level III 09:53:01 [facility] Lorenedada Sheth Ramakrishna Durbin, DO, FACP CPT-23530 Ofc Vst, Est Level IV 09:49:25 CDT Loreneddaa Sheth Ramakrishna Paulson Edu Ramakrishna, DO, FACP CPT-01543 Ofc Vst, Est Level IV 11:33:29 CDT Lorene Meryl Durbin Lorene Sorensen Ramakrishna, DO, FACP CPT-39452 Ofc Vst, Est Level IV 14:11:50 [facility] Lorene Durbin [facility] [place] CPT-46243 Ofc Vst, Est Level IV 17:26:08 [facility] Lorene Durbin [facility] [place] CPT-34502 Ofc Vst, Est Level IV 10:40:42 [facility] Lorene Durbin [facility] [place] CPT-14976 Ofc Vst, Est Level IV 15:05:22 CDT Lorene Meryl Durbin [facility] [place] CPT-89359 Ofc Vst, Est Level IV 14:42:32 CDT Lorenedada Durbin [facility] [place] CPT-33051 Ofc Vst, Est Level III 16:05:07 CDT Lorene Durbin [facility] [place] CPT-06697 Ofc Vst, Est Level V 17:24:06 CDT Lorene Meryl Durbin [facility] [place] CPT-50183 Ofc Vst, Est Level IV 16:02:46 CDT Lorene Meryl Ramakrishna [facility] [place] CPT-37403 Ofc Vst, Est Level III 12:50:41 [facility] Lorene Meryl Ramakrishna [facility] [place] CPT-25434 Ofc Vst, Est Level II 12:09:58 [facility] Lorene Merylgladys Durbin [facility] [place] CPT-80624 Ofc Vst, Est Level IV 09:31:48 [facility] Lorenedada Durbin [facility] [place] CPT-89672 Ofc Vst, Est Level III 10:36:21 [facility] Lorene Meryllgadys Durbin [facility] [place] CPT-79383 Ofc Vst, Est Level IV 15:48:05 CDT Lorene Meryl Durbin [facility] [place] CPT-60447 Ofc Vst, Est Level III 11:58:31 CDT Lorene Merylgladys Durbin [facility] [place] CPT-77835 Ofc Vst, Est Level IV 18:14:00 CDT Lorene Meryl Ramakrishna [facility] [place] CPT-32030 Ofc Vst, New Level III 19:15:23 [facility] Lorenedada Durbin [facility] [place] Procedures Code Procedure Name Date Entry Date Standard Description CPT-G0439 Medicare Annual Wellness Visit 14:14:39 CDT CPT-G8445 E-Prescribing Not sent due to no medication given 21:20: 47 CDT CPT-G8445 E-Prescribing Not sent due to no medication given 20:32: 44 [facility] CPT-G8445 E-Prescribing Not sent due to no medication given 14:43: 31 [facility] CPT-G8445 E-Prescribing Not sent due to no medication given 20:01: 57 [facility] CPT-G8445 E-Prescribing Not sent due to no medication given 16:57: 33 CDT CPT-G8445 E-Prescribing Not sent due to no medication given 14:43: 50 CDT CPT-G8445 E-Prescribing Not sent due to no medication given 15:02: 07 CDT CPT-G8443 E-Prescribing Medication Sent 14:44:46 CDT CPT-G8443 E-Prescribing Medication Sent 16:13:39 CDT CPT-28683 Biopsy, skin/subcut/mucous membrane; sngl lsn 15:46:15 CDT CPT-G8445 E-Prescribing Not sent due to no medication given 14:23: 32 CDT CPT-G0438 Medicare Annual Wellness Visit Initial 14:23:32 CDT CPT-G8445 E-Prescribing Not sent due to no medication given 15:57: 50 CDT CPT-G8443 E-Prescribing Medication Sent 15:52:15 [facility] CPT-G8443 E-Prescribing Medication Sent 15:08:06 CDT CPT-64049 Injection, Pneumovax 16:28:10 CDT CPT-G8443 E-Prescribing Medication Sent 15:52:30 CDT CPT-75788 EKG w/ Interpretation 17:24:06 CDT CPT-17601 EKG w/ Interpretation 11:58:31 CDT
--- OUTSIDE RECORDS SUMMARY | 2017-12-16 05:04 | XMS REPORT | Clinical Summary ---
Author Author User, [employer] Organization Lorene Durbin DO, FACP Address Unknown [...] 1 PO dialy for three days PREDNISONE 02062352139 Active Lorene Durbin SYMBICORT 160-4.5 MCG/ACT AERO 2 puffs BID BUDESONIDE- FORMOTEROL FUMARATE 26231761620 Active Lorene Durbin PULMICORT 0.5 MG/2ML SUSP I VIAL-INHALE ORALLY DAILY BUDESONIDE 34917387689 No Longer Active Lorene Durbin FOLIC ACID 1 MG TABS 1 PO QD FOLIC ACID 45354483039 No Longer Active Lorene Durbin TRAZODONE HCL 100 MG TABS 1 PO AT HS TRAZODONE HCL 36203144465 Active Lorene Durbin PREDNISONE 5 MG TABS 1 PO DAILY PREDNISONE 12952107324 Active Lorene Durbin NOVOLOG FLEXPEN 100 UNIT/ML SOPN INJECT 3 SQ BEFORE MEALS INSULIN ASPART 80821403379 Active Lorene Durbin IPRATROPIUM-ALBUTEROL 0.5-2.5 (3) MG/3ML SOLN 1 VIAL INHALE ORALLY TID 09/17 IPRATROPIUM-ALBUTEROL 34455330348 Active Lorene Durbin DEPAKOTE SPRINKLES 125 MG CPSP 1 TIME DAILY DIVALPROEX SODIUM 38027863438 Active Lorene Levinener EXELON 4.6 MG/24HR PT24 APPLY PATCH DAILY RIVASTIGMINE 38245231069 Active Lorene Meryl Ramakrishna FOLIC ACID 1 MG TABS 1 PO DAILY FOLIC ACID 10559671169 Active Lorene Meryl Ramakrishna MELATONIN 3 MG TABS 1 PO AT HS FOR INSOMNIA MELATONIN 33832025940 Active Lorene Meryl Ramakrishna MIRALAX POWD 17 GRAMS PO BID POLYETHYLENE GLYCOL 3350 68068855373 Active Lorene Meryl Ramakrishna NORVASC 10 MG TABS 1 PO DAILY AMLODIPINE BESYLATE 63055204558 Active Lorene Meryl Ramakrishna CELEXA 20 MG TABS 1 PO DAILY CITALOPRAM HYDROBROMIDE 20942480518 Active Lorene Meryl Ramakrishna PAXIL 20 MG TAB 1 PO DAILY PAROXETINE HCL 26219589214 No Longer Active Lorene Meryl Durbin BISACODYL LAXATIVE 10 MG SUPP 1 CA QD PRN constipation BISACODYL 40344933903 No Longer Active Lorene Meryl Durbin COREG 6.25 MG TABS 1 PO BID CARVEDILOL 50241754918 Active Lorene Merylgladys Durbin BENADRYL 25 MG CAP 1 PO TID prn DIPHENHYDRAMINE HCL 42557920020 No Longer Active Lorene Meryl Durbin LACTULOSE SOLN 30 ML PO BID PRN Constipation LACTULOSE SOLN 55232258570 No Longer Active Lorene Meryl Durbin LASIX 40 MG TAB 1 PO MWF FUROSEMIDE 42725573067 No Longer Active Lorene Meryl Durbin VITAMIN D 1000 UNIT TABS 1 PO Daily CHOLECALCIFEROL 60641878961 Active Lorene Meryl Durbin ZOCOR 20 MG TABS 1 PO DAILY SIMVASTATIN 64030463335 Active Elizabeth Dixon FINASTERIDE 5 MG TABS 1 PO DAILY FINASTERIDE 66155699920 Active Lorene Meryl Durbin NAMENDA 10 MG TABS 1 PO BID MEMANTINE HCL 46580913012 Active Elizabeth Dixon KENALOG 0.1 % CREA apply to affected areas BID TRIAMCINOLONE ACETONIDE No Longer Active Lorene Meryl Durbin DILANTIN 100 MG CAP 1 PO at 7am and 2 pm and 2 PO at HS PHENYTOIN SODIUM EXTENDED 46171958752 No Longer Active Lorene Meryl Durbin PREDNISONE 20 MG TAB 1 PO daily for 7 days then resume 5mg dosing as previous PREDNISONE 08405839568 No Longer Active Lorene Meryl Durbin AUGMENTIN 500-125 MG TAB 1 PO BID AMOXICILLIN-POT CLAVULANATE 16258709008 No Longer Active Lorenedada Durbin OCUFLOX 0.3 % SOLN 2 drops in right ear TID for 7 days OFLOXACIN 88229674261 No Longer Active Lorene Meryl Durbin PREDNISONE 20 MG TAB 1 PO daily for 7 days PREDNISONE 12480092218 No Longer Active Loreen Meryl Durbin KENALOG 0.1 % CREA apply to affected areas BID TRIAMCINOLONE ACETONIDE No Longer Active Lorenedada Durbin ATARAX 25 MG TAB 1 PO Q6hrs prn itching HYDROXYZINE HCL No Longer Active Lorenedada Durbin DETROL LA 4 MG CP24 1 PO daily TOLTERODINE TARTRATE 40494782866 No Longer Active Lorene Meryl Durbin FINASTERIDE 5 MG TABS 1 PO BID FINASTERIDE 00216387614 No Longer Active Lorene Meryl Durbin BACTRIM DS 800-160 MG TAB 1 PO MWF TRIMETHOPRIM- SULFAMETHOXAZOLE 58665677498 No Longer Active Lorene Meryl Durbin NYSTATIN POWD Apply Topically to groin BID for gaulding NYSTATIN 86018329352 No Longer Active Lorene Durbin TERBINAFINE HCL 1 % CREA Apply to affected area BID TERBINAFINE HCL 95631773425 No Longer Active Lorenedada Durbin CALTRATE 600 PLUS-VIT D 600-200 MG-IU TABS 1 PO BID CALCIUM-VITAMIN D Active Elizabeth Dixon VALTREX 1 GM TAB 1 PO BID VALACYCLOVIR HCL 40955938685 No Longer Active Lorenedada Durbin TESSALON 200 MG CAPS 1 PO TID prn cough BENZONATATE 70407577054 No Longer Active Elizabeth Dixon PREDNISONE 10 MG TABS 1 PO QD PREDNISONE 96153472844 No Longer Active Lorenedada Durbin TESSALON 200 MG CAPS 1 PO TID prn cough BENZONATATE 67988966384 No Longer Active Lorene Durbin FLOMAX 0.4 MG CAPS 1 PO QD for urinary retention TAMSULOSIN HCL 74810283990 Active Elizabeth Dixon OMEPRAZOLE 40 MG CPDR 1 PO QD OMEPRAZOLE 40056857276 Active Elizabeth Dixon FERROUS SULFATE 325 (65 FE) MG TABS 1 PO BID FERROUS SULFATE 30185504730 Active Elizabeth Dixon COLACE 100 MG CAPS 1 PO BID prevent constipation DOCUSATE SODIUM 28316134400 Active Elizabeth Dixon ACETAMINOPHEN 325 MG TABS 2 PO Q 4hrs PRN pain or fever ACETAMINOPHEN 65831852798 Active Lorenedada Durbin IMURAN 50 MG TABS 3 po daily AZATHIOPRINE 77800363123 No Longer Active Lorenedada Durbin TOVIAZ 4 MG [id number] 1 po daily FESOTERODINE FUMARATE 35384615961 No Longer Active Lorenedada Durbin COREG 12.5 MG TABS 1 po bid CARVEDILOL 64303775802 No Longer Active Lorene Meryl Durbin WAVESENSE PRESTO TEST STRP Check BS Daily DX: DIABETES GLUCOSE BLOOD 49809840009 No Longer Active Lorene Meryl Durbin OMEPRAZOLE 40 MG CPDR 1 PO Daily OMEPRAZOLE 17159889656 No Longer Active Lorene Meryl Durbin FLOMAX 0.4 MG CAPS 1 PO Daily TAMSULOSIN HCL 36224319543 No Longer Active Lorene Meryl Durbin MEPRON 750 MG/5ML SUSP 5 ml PO BID ATOVAQUONE 56518433023 No Longer Active Lorene Meryl Durbin PREDNISONE 5 MG TABS 2 po daily PREDNISONE 02776085800 No Longer Active Lorene Meryl Durbin TERAZOSIN HCL 2 MG CAPS 1 PO qhs TERAZOSIN HCL 65379599869 No Longer Active Lorene Meryl Durbin VITAMIN D 1000 UNIT TABS 1 PO Daily CHOLECALCIFEROL 62713563284 No Longer Active Lorene Meryl Durbin PEPCID 20 MG TAB 1 PO daily FAMOTIDINE 19365121648 No Longer Active Lorene Meryl Durbin VITAMIN B-12 100 MCG TABS 1 po daily CYANOCOBALAMIN 71838783806 No Longer Active Lorene Meryl Durbin IRON 325 (65 FE) MG TABS 1 PO daily FERROUS SULFATE 24325704484 No Longer Active Lorene Meryl Durbin CALCIUM 600 1500 MG TABS 1 PO QAM and 2 PO QHS CALCIUM CARBONATE 19739301686 No Longer Active Lorene Meryl Durbin MULTIVITAMINS TABS 1 po daily MULTIPLE VITAMIN 16339311876 No Longer Active Lorene Meryl Durbin FISH OIL 1000 MG CAPS 1 po daily OMEGA-3 FATTY ACIDS 13378206689 No Longer Active Lorene Meryl Durbin ASPIRIN 81 MG TAB 1 PO QD ASPIRIN 56627127129 No Longer Active Lorene Meryl Durbin NORVASC 5 MG TAB 1 PO Daily AMLODIPINE BESYLATE 80262463254 No Longer Active Lorene Meryl Durbin CLOBETASOL PROPIONATE 0.05 % CREA Apply small amount to affected areas on arms BID CLOBETASOL PROPIONATE 24033785479 No Longer Active Lorene Meryl Durbin LOTRISONE 0.05-1 % CREAM Apply a small amount to affected area on back BID CLOTRIMAZOLE-BETAMETHASONE 65171245405 No Longer Active Lorene Meryl Durbin CYCLOPHOSPHAMIDE 25 MG TABS take 5 tablets once daily CYCLOPHOSPHAMIDE 39017009396 No Longer Active Lorene Meryl Durbin PERCOCET 5-325 MG TAB 1 PO Q 6 hours OXYCODONE- ACETAMINOPHEN 04940464274 No Longer Active Lorene Meryl Durbin VALTREX 1 GM TAB 1 PO BID VALACYCLOVIR HCL 48207872139 No Longer Active Lorene Meryl Durbin ACCUPRIL 10 MG TABS 1 po daily QUINAPRIL HCL 07223098369 No Longer Active Lorene Meryl Durbin COZAAR 25 MG TAB 1 PO daily LOSARTAN POTASSIUM 45221298542 No Longer Active Elizabeth Dixon MAGNESIUM OXIDE 400 MG CAPS 1 PO daily MAGNESIUM OXIDE 51121375380 No Longer Active Lorene Meryl Durbin LOTRISONE 0.05-1 % CREAM Apply to affected areas twice daily prn CLOTRIMAZOLE-BETAMETHASONE 24372559604 No Longer Active Lorenedada Durbin FERROUS SULFATE 100 MG 1 PO daily FERROUS SULFATE 100 MG No Longer Active Lorene Meryl Durbin QUALAQUIN 324 MG CAPS 1 PO QHS prn QUININE SULFATE 47191161168 No Longer Active Lorene Meryl Durbin ROBITUSSIN A-C 10-100 MG/5ML SYRUP 1 teaspoon PO Q 4-6 hr prn ROBITUSSIN A-C 10-100 MG/5ML SYRUP 26314859051 No Longer Active Lorene Meryl Durbin BIAXIN XL PAC 500 MG TB24 2 pills at same time daily for 7 days CLARITHROMYCIN 86546281949 No Longer Active Lorene Meryl Durbin TESSALON 200 MG CAPS 1 PO TID prn cough BENZONATATE 22778526826 No Longer Active Lorene Meryl Durbin ROBITUSSIN A-C 10-100 MG/5ML SYRUP 1 teaspoon PO Q 4-6 hr prn ROBITUSSIN A-C 10-100 MG/5ML SYRUP 93734534285 No Longer Active Lorene Meryl Durbin BIAXIN XL PAC 500 MG TB24 2 pills at same time daily for 7 days CLARITHROMYCIN 29098200901 No Longer Active Lorene Meryl Durbin KEFLEX 500 MG CAP 1 PO TID for 7 days CEPHALEXIN 03003457534 No Longer Active Lorene Meryl Durbin FERROUS SULFATE 325 (65 FE) MG TABS 1 PO daily FERROUS SULFATE 71552951234 No Longer Active Lorene Meryl Durbin CINNAMON 500 MG CAPS 1 po daily CINNAMON 90934891985 No Longer Active Lorene Meryl Durbin XANAX 0.25 MG TABS 1 po q 4-6 hrs prn ALPRAZOLAM 08049549295 No Longer Active Lorene Meryl Durbin TRIAMCINOLONE ACETONIDE 0.1 % OINT Apply as directed TRIAMCINOLONE ACETONIDE 29094472631 No Longer Active Lorene Meryl Durbin KERALAC 50 % GEL as needed UREA 58607635557 No Longer Active Lorene Meryl Durbin AMITRIPTYLINE HCL 25 MG TAB 1 PO daily at night prn AMITRIPTYLINE HCL 39962168992 No Longer Active Lorene Meryl Durbin ZOCOR 5 MG TABS 1 PO QOD (on hold) SIMVASTATIN 01701896076 No Longer Active Lorene Meryl Durbin VIAGRA 50 MG TABS prn SILDENAFIL CITRATE 02852379973 No Longer Active Lorene Meryl Durbin DARVOCET-N 100 100-650 MG TABS 1 po q 6 hrs. prn pain PROPOXYPHENE N-APAP 59003971058 No Longer Active Lorene Meryl Durbin CYCLOBENZAPRINE HCL 10 MG TABS 1 po q 12 hrs. prn CYCLOBENZAPRINE HCL 84309888372 No Longer Active Lorene Meryl Durbin LORTAB 5 5-500 MG TABS 1 as needed HYDROCODONE- ACETAMINOPHEN 99153931717 No Longer Active Lorene Meryl Durbin ALBUTEROL 90 MCG/ACT AERS 2 puffs Q4-6hrs prn ALBUTEROL 15284524351 No Longer Active Lorene Meryl Durbin ROBITUSSIN A-C 10-100 MG/5ML SYRUP 5cc PO Q 4-6 hr prn ROBITUSSIN A-C 10-100 MG/5ML SYRUP 83667771876 No Longer Active Lorenedada Durbin ADVAIR DISKUS 100-50 MCG/DOSE MISC 1 puff BID FLUTICASONE-SALMETEROL 80649146944 No Longer Active Lorene Meryl Durbin AUGMENTIN 500-125 MG TABS 1 PO BID AMOXICILLIN-POT CLAVULANATE 72024622268 No Longer Active Lorene Meryl Durbin PLAVIX 75 MG TABS 1 po daily CLOPIDOGREL BISULFATE 11722589567 No Longer Active Lorene Meryl Durbin AMOXIL 500 MG TABS 1 PO TID AMOXICILLIN 94912555412 No Longer Active Lorene Meryl Durbin Immunizations Vaccine Administration Date Value Standard Description Influenza vaccine given done influenza virus vaccine, unspecified formulation Influenza vaccine given done influenza virus vaccine, unspecified formulation pneumococcal immunization administered Dr. Durbin pneumococcal polysaccharide vaccine, 23 valent pneumococcal immunization administered Disscused pneumococcal polysaccharide vaccine, 23 valent Vital Signs Date Name Value Unit Range Description blood pressure, diastolic - 8462-4 84 mm[Hg] [...] mmol/L Clinical Lists Update: CBC - Hematology platelet count 131 10*3/mm3 erythrocyte (RBC) count 3.54 10*6/mm3 leukocyte count, blood 8.2 10*3/mm3 mean corpuscular volume, RBC 94 fL red blood cell distribution width 15.3 % hematocrit, blood 33.4 % hemoglobin, blood 10.9 g/dL Clinical Lists Update: CBC,BMP DR [facility] - Chemistry potassium, serum 5.0 mmol/L creatinine, serum 1.9 mg/dL sodium, serum 139 mmol/L anion gap, serum 10 glucose, plasma fasting 133 mg/dL Estimated Glomerular Filtration Rate (calc) 37 mL/min/1.73m2 urea nitrogen, blood 27 mg/dL calcium, serum 9.4 mg/dL carbon dioxide, venous blood 31.0 mmol/L chloride, serum 103 mmol/L Clinical Lists Update: CBC,BMP DR [facility] - Hematology hematocrit, blood 43 % red blood cell distribution width 14.0 % mean corpuscular volume, RBC 100 fL leukocyte count, blood 8.6 10*3/mm3 erythrocyte (RBC) count 4.32 10*6/mm3 platelet count 137 10*3/mm3 hemoglobin, blood 13.2 g/dL Clinical Lists Update: CBC,BMP,UA DR [facility] - Chemistry chloride, serum 104 mmol/L creatinine, serum 2.0 mg/dL potassium, serum 5.0 mmol/L sodium, serum 139 mmol/L anion gap, serum 10 glucose, plasma fasting 150 mg/dL Estimated Glomerular Filtration Rate (calc) 34 mL/min/1.73m2 urea nitrogen, blood 26 mg/dL calcium, serum 9.3 mg/dL carbon dioxide, venous blood 30.0 mmol/L Clinical Lists Update: CBC,BMP,UA DR [facility] - Hematology hemoglobin, blood 13.4 g/dL platelet count 145 10*3/mm3 erythrocyte (RBC) count 4.31 10*6/mm3 leukocyte count, blood 8.9 10*3/mm3 mean corpuscular volume, RBC 101 fL red blood cell distribution width 14.6 % hematocrit, blood 44 % Clinical Lists Update: CBC,BMP,UA DR [facility] - Urinalysis urobilinogen, urine, semiquantitative (dipstick) 0.2 appearance, urine Clear Yellow WBC urine on microscopy none {Cells}/[HPF] RBC urine by microscopy none bacteria, urine microscopy none hyaline casts, urine none /[LPF] epithelial cells, urine none /[LPF] mucus on urinalysis none specific gravity, urine 1.020 protein, urine, semiquantitative (dipstick) neg glucose, urine, semiquantitative neg bilirubin, urine neg ketones, urine, by test strip neg blood in urine (hemoglobin) by dipstick trace pH, urine, semiquantitative 6.5 nitrite, urine, semiquantitative neg Clinical Lists Update: CBC,CMP,FLP,HGA1C,MICROALBUMIN,FERRITIN - Chemistry cholesterol/HDL ratio, serum, percent 3.8 glucose, plasma fasting 107 mg/dL carbon dioxide, venous blood 25.0 mmol/L creatinine, serum 1.5 mg/dL cholesterol, serum 125 mg/dL ferritin, serum 273.2 ng/mL chloride, serum 106 mmol/L HDL cholesterol, serum 33.0 mg/dL anion gap, serum 11 Estimated Glomerular Filtration Rate (calc) 48 mL/min/1.73m2 sodium, serum 138 mmol/L triglyceride, serum, fasting 76 mg/dL bilirubin, serum, total 0.3 mg/dL alanine aminotransferase (SGPT), serum 11 U/L aspartate aminotransferase (SGOT), serum 12 U/L protein, total, serum 5.5 g/dL potassium, serum 3.9 mmol/L albumin, serum 3.2 g/dL LDL cholesterol, serum 77 mg/dL alkaline phosphatase, serum 26 U/L urea nitrogen, blood 26 mg/dL hemoglobin A1C, blood, as % of total hemoglobin 5.9 % calcium, serum 8.4 mg/dL Clinical Lists Update: CBC,CMP,FLP,HGA1C,MICROALBUMIN,FERRITIN - Hematology platelet count 140 10*3/mm3 leukocyte count, blood 6.9 10*3/mm3 hemoglobin, blood 10.3 g/dL mean corpuscular volume, RBC 97 fL erythrocyte (RBC) count 3.47 10*6/mm3 red blood cell distribution width 15.3 % hematocrit, blood 33.6 % Clinical Lists Update: CBC,CMP,FLP,HGA1C,MICROALBUMIN,FERRITIN - Urinalysis microalbumin, urine, semiquantitative 3.2 mg/dL Clinical Lists Update: CBC,CMP,FLP,TSH,HgA1c,Ferritin - Chemistry carbon dioxide, venous blood 28.0 mmol/L cholesterol/HDL ratio, serum, percent 4.1 creatinine, serum 1.9 mg/dL chloride, serum 107 mmol/L ferritin, serum 154.9 ng/mL calcium, serum 9.0 mg/dL HDL cholesterol, serum 40.0 mg/dL urea nitrogen, blood 28 mg/dL hemoglobin A1C, blood, as % of total hemoglobin 6.1 % alkaline phosphatase, serum 34 U/L thyroid stimulating hormone, serum 3.61 u[iU]/mL albumin, serum 3.9 g/dL LDL cholesterol, serum 99 mg/dL cholesterol, serum 165 mg/dL anion gap, serum 11 glucose, plasma fasting 115 mg/dL sodium, serum 141 mmol/L Estimated Glomerular Filtration Rate (calc) 38 mL/min/1.73m2 triglyceride, serum, fasting 129 mg/dL bilirubin, serum, total 0.4 mg/dL potassium, serum 4.6 mmol/L protein, total, serum 6.5 g/dL aspartate aminotransferase (SGOT), serum 18 U/L alanine aminotransferase (SGPT), serum 18 U/L Clinical Lists Update: CBC,CMP,FLP,TSH,HgA1c,Ferritin - Hematology erythrocyte (RBC) count 4.10 10*6/mm3 hematocrit, blood 40 % leukocyte count, blood 7.5 10*3/mm3 platelet count 132 10*3/mm3 mean corpuscular volume, RBC 97 fL hemoglobin, blood 12.6 g/dL red blood cell distribution width 13.8 % Clinical Lists Update: CBC,CMP,FLP.UA - Chemistry cholesterol/HDL ratio, serum, percent 4.2 anion gap, [...] 9.3 mL/min/1.73m2 glucose, plasma fasting 102 mg/dL Clinical Lists Update: CBC,CMP,FLP.UA - Hematology hemoglobin, [...] Filtration Rate (calc) 38 mL/min/1.73m2 albumin, serum 3.1 g/dL albumin, serum 3.5 [...] serum 1.59 u[iU]/mL potassium, serum 4.2 mmol/L potassium, serum 4.1 mmol/L protein, total, serum 5.4 g/dL protein, total, serum 6.3 g/dL aspartate aminotransferase (SGOT), serum 18 U/L aspartate aminotransferase (SGOT), serum 19 U/L alanine aminotransferase (SGPT), serum 21 U/L alanine aminotransferase (SGPT), serum 37 U/L bilirubin, serum, total 0.5 mg/dL bilirubin, serum, total 0.5 mg/dL sodium, serum 143 mmol/L sodium, serum 144 mmol/L anion gap, serum 11 glucose, plasma fasting 125 mg/dL glucose, plasma fasting 111 mg/dL Clinical Lists Update: [facility] - Hematology hematocrit, blood 40.6 % red blood cell distribution width 12.8 % red blood cell distribution width 12.9 % mean corpuscular volume, RBC 94 fL mean corpuscular volume, RBC 94.9 fL leukocyte count, blood 6.5 10*3/mm3 hematocrit, blood 38 % erythrocyte (RBC) count 4.00 10*6/mm3 erythrocyte (RBC) count 4.28 10*6/mm3 platelet count 125 10*3/mm3 platelet count 93 10*3/mm3 hemoglobin, blood 12.6 g/dL hemoglobin, blood 13.5 g/dL leukocyte count, blood 9.78 10*3/mm3 Clinical Lists Update: [facility] - Urinalysis glucose, urine, semiquantitative neg blood in urine (hemoglobin) by dipstick neg mucus on urinalysis neg epithelial cells, urine 0-2 /[LPF] hyaline casts, urine present /[LPF] bacteria, urine microscopy few RBC urine by microscopy rare WBC urine on microscopy rare {Cells}/[HPF] appearance, urine Clear Yellow urobilinogen, urine, semiquantitative (dipstick) normal specific gravity, urine 1.015 pH, urine, semiquantitative 6 nitrite, urine, semiquantitative neg protein, urine, semiquantitative (dipstick) neg bilirubin, urine neg ketones, urine, by test strip neg Office Visit: Dr Durbin's Check Up: [...] 10*6/mm3 Encounters Code Encounter Date Provider Facility CPT-36667 Ofc Vst, Est Level III 14:28:01 CDT Lorenedada Durbin, DO, FACP CPT-55899 Ofc Vst, Est Level III 16:47:49 CDT Lorene Meryl Durbin, DO, FACP CPT-52275 Ofc Vst, Est Level III 16:04:23 CDT Lorene Meryl Durbin, DO, FACP CPT-99477 Ofc Vst, Est Level III 19:00:13 [employer] Loerne Durbin, DO, FACP CPT-65076 Ofc Vst, Est Level III 21:20:47 CDT Lorenedada Durbin, DO, FACP CPT-70260 Ofc Vst, Est Level III 20:32:44 [employer] Lorene Durbin, DO, FACP CPT-34958 Ofc Vst, Est Level III 14:43:31 [employer] Lorene Durbin, DO, FACP CPT-91730 Ofc Vst, Est Level III 20:01:57 [employer] Lorene Durbin, DO, FACP CPT-04189 Ofc Vst, Est Level III 16:57:33 CDT Lorene Durbin, DO, FACP CPT-00736 Ofc Vst, Est Level III 14:43:50 CDT Lorene Durbin, DO, FACP CPT-46559 Ofc Vst, Est Level III 15:02:07 CDT Lorenedada Sorensen Durbin, DO, FACP CPT-27729 Ofc Vst, Est Level III 14:44:46 CDT Lorene Meryl Sorensen Durbin, DO, FACP CPT-10512 Ofc Vst, Est Level IV 16:13:39 CDT Lorene Meryl Sorensen Durbin, DO, FACP CPT-67085 Ofc Vst, Est Level III 11:48:41 CDT Lorene Meryl Sorensen Durbin, DO, FACP CPT-06158 Ofc Vst, Est Level III 15:46:15 CDT Lorene Meryl Sorensen Durbin, DO, FACP CPT-65224 Ofc Vst, Est Level IV 15:57:50 CDT Lorenedada Sorensen Durbin, DO, FACP CPT-77944 Ofc Vst, Est Level III 16:05:36 [employer] Lorene Sorensen Durbin, DO, FACP CPT-33726 Ofc Vst, Est Level IV 15:52:15 [employer]IST Lorene Sorensen Udrbin, DO, FACP CPT-52894 Ofc Vst, Est Level III 15:08:06 CDT Lorene Sorensen Durbin, DO, FACP CPT-95864 Ofc Vst, Est Level IV 15:06:29 CDT Lorenedada Sorensen Durbin, DO, FACP CPT-83268 Ofc Vst, Est Level IV 13:29:16 CDT Lorene Sorensen Durbin, DO, FACP CPT-98412 Ofc Vst, Est Level V 13:50:55 [employer] Lorene Sorensen Durbin, DO, FACP CPT-01165 Ofc Vst, Est Level IV 11:10:14 [employer] Lorene Sorensen Durbin, DO, FACP CPT-02786 Ofc Vst, Est Level III 15:28:22 CDT Lorene Meryl Sorenesn Durbin, DO, FACP CPT-25775 Ofc Vst, New Level IV 14:17:27 CDT Lorene Meryl Sorensen Durbin, DO, FACP CPT-01933 Ofc Vst, New Level II 14:17:27 CDT Lorene Meryl Sorensen Durbin, DO, FACP CPT-67484 Ofc Vst, Est Level IV 10:59:16 CDT Lorene Meryl Sorensen Ramakrishna, DO, FACP CPT-80723 Ofc Vst, Est Level II 16:12:29 CDT Lorenedada Sorensen Ramakrishna, DO, FACP CPT-61824 Ofc Vst, Est Level IV 10:53:48 CDT Lorene Meryl Sorensen Ramakrishna, DO, FACP CPT-90439 Office Consult, Level III 11:11:19 [employer] Lorene Sorensen Ramakrishna, DO, FACP CPT-70930 Ofc Vst, Est Level IV 11:12:23 CDT Lorene Sorensen Ramakrishna, DO, FACP CPT-39328 Ofc Vst, Est Level IV 11:46:11 CDT Lorene Meryl Sorensen Ramakrishna, DO, FACP CPT-75486 Ofc Vst, Est Level IV 15:36:14 CDT Lorene Meryl Sorensen Ramakrishna, DO, FACP CPT-85316 Ofc Vst, Est Level IV 11:36:09 [employer] Lorene Sorensen Durbin, DO, FACP CPT-28562 Ofc Vst, Est Level IV 16:28:10 CDT Lorene Meryl Sorensen Ramakrishna, DO, FACP CPT-94277 Ofc Vst, Est Level IV 15:52:30 CDT Lorenedada Sorensen Ramakrishna, DO, FACP CPT-90738 Ofc Vst, Est Level III 11:48:57 CDT Lorene Meryl Sorensen Ramakrishna, DO, FACP CPT-92812 Ofc Vst, Est Level IV 09:15:20 [employer] Lorene Meryl Sorensen Ramakrishna, DO, FACP CPT-37908 Ofc Vst, Est Level IV 16:43:12 [employer]IST Lorene Meryl Levinener Lorene Sorensen Ramakrishna, DO, FACP CPT-31563 Ofc Vst, Est Level III 14:52:39 CDT Lorene Meryl Sorensen Ramakrishna, DO, FACP CPT-57256 Ofc Vst, Est Level IV 11:27:37 CDT Lorene Meryl Levinener Lorene Sorensen Ramakrishna, DO, FACP CPT-35512 Ofc Vst, Est Level III 09:53:01 [employer] Lorene Meryl Levinener Lorene Sorensen Ramakrishna, DO, FACP CPT-86600 Ofc Vst, Est Level IV 09:49:25 CDT Lorenedada Levinener Lorene Sorensen Ramakrishna, DO, FACP CPT-97269 Ofc Vst, Est Level IV 11:33:29 CDT Lorenedada Sheth Ramakrishna Lorene Sorensen Ramakrishna, DO, FACP CPT-11151 Ofc Vst, Est Level IV 14:11:50 [employer]IST Lorene Durbin [facility] [employer] [facility] CPT-40902 Ofc Vst, Est Level IV 17:26:08 [employer] Lorene Durbin [facility] CPT-32014 Ofc Vst, Est Level IV 10:40:42 [employer] Lorene Durbin [facility] CPT-35783 Ofc Vst, Est Level IV 15:05:22 CDT Lorene Meryl Durbin [facility] CPT-53400 Ofc Vst, Est Level IV 14:42:32 CDT Lorene Meryl Durbin [facility] [place] [facility] CPT-45770 Ofc Vst, Est Level III 16:05:07 CDT Lorene Meryl Durbin [facility] [place] [facility] CPT-64981 Ofc Vst, Est Level V 17:24:06 CDT Lorene Meryl Durbin [facility] [place] [facility] CPT-99915 Ofc Vst, Est Level IV 16:02:46 CDT Lorene Meryl Durbin [facility] [place] [facility] CPT-13864 Ofc Vst, Est Level III 12:50:41 [employer] Lorene Meryl Durbin [facility] [place] [facility] CPT-41576 Ofc Vst, Est Level II 12:09:58 [employer]IST Lorene Durbin [facility] CPT-33711 Ofc Vst, Est Level IV 09:31:48 FI[employer] MARKET[employer] SPECIALIST Lorene [facility] CPT-18999 Ofc Vst, Est Level III 10:36:21 FIELD MARKETING SPECIALIST Lorene [facility] CPT-62399 Ofc Vst, Est Level IV 15:48:05 CDT Lorene Meryl [facility] CPT-27253 Ofc Vst, Est Level III 11:58:31 CDT Lorene Meryl [facility] CPT-44549 Ofc Vst, Est Level IV 18:14:00 CDT Lorene Meryl [facility] CPT-69646 Ofc Vst, New Level III 19:15:23 FIELD MARKETING SPECIALIST Lorene [facility] Procedures Code Procedure Name Date Entry Date Standard Description CPT-G0439 Medicare Annual Wellness Visit 14:14:39 CDT CPT-G8445 E-Prescribing Not sent due to no medication given 21:20: 47 CDT CPT-G8445 E-Prescribing Not sent due to no medication given 20:32: 44 FIELD MARKETING SPECIALIST CPT-G8445 E-Prescribing Not sent due to no medication given 14:43: 31 FIELD MARKETING SPECIALIST CPT-G8445 E-Prescribing Not sent due to no medication given 20:01: 57 FIELD MARKETING SPECIALIST CPT-G8445 E-Prescribing Not sent due to no medication given 16:57: 33 CDT CPT-G8445 E-Prescribing Not sent due to no medication given 14:43: 50 CDT CPT-G8445 E-Prescribing Not sent due to no medication given 15:02: 07 CDT CPT-G8443 E-Prescribing Medication Sent 14:44:46 CDT CPT-G8443 E-Prescribing Medication Sent 16:13:39 CDT CPT-23797 Biopsy, skin/subcut/mucous membrane; sngl lsn 15:46:15 CDT CPT-G8445 E-Prescribing Not sent due to no medication given 14:23: 32 CDT CPT-G0438 Medicare Annual Wellness Visit Initial 14:23:32 CDT CPT-G8445 E-Prescribing Not sent due to no medication given 15:57: 50 CDT CPT-G8443 E-Prescribing Medication Sent 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
--- OUTSIDE RECORDS SUMMARY | 2017-12-16 05:06 | XMS REPORT | Clinical Summary ---
Author Author User, [facility] Organization Lorene Durbin DO, FACP Address Unknown [...] 1 PO dialy for three days PREDNISONE 93378031827 Active Lorene Durbin SYMBICORT 160-4.5 MCG/ACT AERO 2 puffs BID BUDESONIDE- FORMOTEROL FUMARATE 05919010334 Active Lorene Durbin PULMICORT 0.5 MG/2ML SUSP I VIAL-INHALE ORALLY DAILY BUDESONIDE 73503371045 No Longer Active Lorene Durbin FOLIC ACID 1 MG TABS 1 PO QD FOLIC ACID 19178207642 No Longer Active Lorene Durbin TRAZODONE HCL 100 MG TABS 1 PO AT HS TRAZODONE HCL 57253954781 Active Elizabeth Dixon PREDNISONE 5 MG TABS 1 PO DAILY PREDNISONE 66722252614 Active Elizabeth Dixon NOVOLOG FLEXPEN 100 UNIT/ML SOPN INJECT 3 SQ BEFORE MEALS INSULIN ASPART 24460138771 Active Elizabeth Dixon IPRATROPIUM-ALBUTEROL 0.5-2.5 (3) MG/3ML SOLN 1 VIAL INHALE ORALLY TID 09/17 IPRATROPIUM-ALBUTEROL 69024300911 Active Lorene Durbin DEPAKOTE SPRINKLES 125 MG CPSP 1 TIME DAILY DIVALPROEX SODIUM 35096844488 Active Lorene Durbin EXELON 4.6 MG/24HR PT24 APPLY PATCH DAILY RIVASTIGMINE 07064684383 Active Lorene Meryl Durbin FOLIC ACID 1 MG TABS 1 PO DAILY FOLIC ACID 13392814163 Active Lorene Meryl Ramakrishna MELATONIN 3 MG TABS 1 PO AT HS FOR INSOMNIA MELATONIN 08091207232 Active Elizabeth Destiny MIRALAX POWD 17 GRAMS PO BID POLYETHYLENE GLYCOL 3350 91515693302 Active Lorene Meryl Ramakrishna NORVASC 10 MG TABS 1 PO DAILY AMLODIPINE BESYLATE 72342292520 Active Lorene Merylgladys Durbin CELEXA 20 MG TABS 1 PO DAILY CITALOPRAM HYDROBROMIDE 27415554253 Active Lorene Meryl Durbin PAXIL 20 MG TAB 1 PO DAILY PAROXETINE HCL 32093724679 No Longer Active Lorene Meryl Durbin BISACODYL LAXATIVE 10 MG SUPP 1 AL QD PRN constipation BISACODYL 19136348992 No Longer Active Lorene Meryl Durbin COREG 6.25 MG TABS 1 PO BID CARVEDILOL 00851977010 Active Lorene Meryl Durbin BENADRYL 25 MG CAP 1 PO TID prn DIPHENHYDRAMINE HCL 77691525196 No Longer Active Lorene Meryl Durbin LACTULOSE SOLN 30 ML PO BID PRN Constipation LACTULOSE SOLN 37312621308 No Longer Active Lorene Meryl Durbin LASIX 40 MG TAB 1 PO MWF FUROSEMIDE 41957558925 No Longer Active Lorene Meryl Durbin VITAMIN D 1000 UNIT TABS 1 PO Daily CHOLECALCIFEROL 24059134434 Active Lorene Meryl Durbin ZOCOR 20 MG TABS 1 PO DAILY SIMVASTATIN 60717335248 Active Elizabeth Dixon FINASTERIDE 5 MG TABS 1 PO DAILY FINASTERIDE 86411300604 Active Lorene Meryl Durbin NAMENDA 10 MG TABS 1 PO BID MEMANTINE HCL 42975343960 Active Elizabeth Dixon KENALOG 0.1 % CREA apply to affected areas BID TRIAMCINOLONE ACETONIDE No Longer Active Lorenedada Durbin DILANTIN 100 MG CAP 1 PO at 7am and 2 pm and 2 PO at HS PHENYTOIN SODIUM EXTENDED 48435414243 No Longer Active Lorene Meryl Durbin PREDNISONE 20 MG TAB 1 PO daily for 7 days then resume 5mg dosing as previous PREDNISONE 07509137488 No Longer Active Lorene Meryl Durbin AUGMENTIN 500-125 MG TAB 1 PO BID AMOXICILLIN-POT CLAVULANATE 89570723980 No Longer Active Lorenedada Durbin OCUFLOX 0.3 % SOLN 2 drops in right ear TID for 7 days OFLOXACIN 56157990952 No Longer Active Lorenedada Durbin PREDNISONE 20 MG TAB 1 PO daily for 7 days PREDNISONE 10962973732 No Longer Active Lorenedada Durbin KENALOG 0.1 % CREA apply to affected areas BID TRIAMCINOLONE ACETONIDE No Longer Active Lorenedada Durbin ATARAX 25 MG TAB 1 PO Q6hrs prn itching HYDROXYZINE HCL No Longer Active Lorenedada Durbin DETROL LA 4 MG CP24 1 PO daily TOLTERODINE TARTRATE 33616535575 No Longer Active Lorene Meryl Durbin FINASTERIDE 5 MG TABS 1 PO BID FINASTERIDE 46161788851 No Longer Active Lorene Meryl Durbin BACTRIM DS 800-160 MG TAB 1 PO MWF TRIMETHOPRIM- SULFAMETHOXAZOLE 36844374775 No Longer Active Lorene Meryl Durbin NYSTATIN POWD Apply Topically to groin BID for gaulding NYSTATIN 95976879415 No Longer Active Lorenedada Durbin TERBINAFINE HCL 1 % CREA Apply to affected area BID TERBINAFINE HCL 32088981742 No Longer Active Lorene Meryl Durbin CALTRATE 600 PLUS-VIT D 600-200 MG-IU TABS 1 PO BID CALCIUM-VITAMIN D Active Elizabeth Dixon VALTREX 1 GM TAB 1 PO BID VALACYCLOVIR HCL 05550153743 No Longer Active Lorene Meryl Durbin TESSALON 200 MG CAPS 1 PO TID prn cough BENZONATATE 94580908556 No Longer Active Elizabeth Dixon PREDNISONE 10 MG TABS 1 PO QD PREDNISONE 53158922790 No Longer Active Lorene Meryl Durbin TESSALON 200 MG CAPS 1 PO TID prn cough BENZONATATE 41660255314 No Longer Active Lorenedada Durbin FLOMAX 0.4 MG CAPS 1 PO QD for urinary retention TAMSULOSIN HCL 20702065283 Active Elizabethjenn Dixon OMEPRAZOLE 40 MG CPDR 1 PO QD OMEPRAZOLE 40853161473 Active Elizabethjenn Dixon FERROUS SULFATE 325 (65 FE) MG TABS 1 PO BID FERROUS SULFATE 85830490141 Active Elizabethjenn Dixon COLACE 100 MG CAPS 1 PO BID prevent constipation DOCUSATE SODIUM 49347502148 Active Elizabeth Dixon ACETAMINOPHEN 325 MG TABS 2 PO Q 4hrs PRN pain or fever ACETAMINOPHEN 96612088670 Active Lorenedada Durbin IMURAN 50 MG TABS 3 po daily AZATHIOPRINE 35497062125 No Longer Active Lorenedada Durbin TOVIAZ 4 MG [id number] 1 po daily FESOTERODINE FUMARATE 17705543485 No Longer Active Lorene Durbin COREG 12.5 MG TABS 1 po bid CARVEDILOL 86997863472 No Longer Active Lorene Meryl Durbin WAVESENSE PRESTO TEST STRP Check BS Daily DX: DIABETES GLUCOSE BLOOD 34807392121 No Longer Active Lorene Meryl Durbin OMEPRAZOLE 40 MG CPDR 1 PO Daily OMEPRAZOLE 42430941852 No Longer Active Lorene Meryl Durbin FLOMAX 0.4 MG CAPS 1 PO Daily TAMSULOSIN HCL 89792254971 No Longer Active Lorene Meryl Durbin MEPRON 750 MG/5ML SUSP 5 ml PO BID ATOVAQUONE 56130819800 No Longer Active Lorene Meryl Durbin PREDNISONE 5 MG TABS 2 po daily PREDNISONE 13653544662 No Longer Active Lorene Meryl Durbin TERAZOSIN HCL 2 MG CAPS 1 PO qhs TERAZOSIN HCL 23227965678 No Longer Active Lorene Meryl Durbin VITAMIN D 1000 UNIT TABS 1 PO Daily CHOLECALCIFEROL 18183785822 No Longer Active Lorene Meryl Durbin PEPCID 20 MG TAB 1 PO daily FAMOTIDINE 14091887007 No Longer Active Lorene Meryl Durbin VITAMIN B-12 100 MCG TABS 1 po daily CYANOCOBALAMIN 63047670324 No Longer Active Lorene Meryl Durbin IRON 325 (65 FE) MG TABS 1 PO daily FERROUS SULFATE 37034542166 No Longer Active Lorene Meryl Durbni CALCIUM 600 1500 MG TABS 1 PO QAM and 2 PO QHS CALCIUM CARBONATE 99422013527 No Longer Active Lorene Meryl Durbin MULTIVITAMINS TABS 1 po daily MULTIPLE VITAMIN 54213359950 No Longer Active Lorene Meryl Durbin FISH OIL 1000 MG CAPS 1 po daily OMEGA-3 FATTY ACIDS 29492062192 No Longer Active Lorene Meryl Durbin ASPIRIN 81 MG TAB 1 PO QD ASPIRIN 50620662786 No Longer Active Lorene Meryl Durbin NORVASC 5 MG TAB 1 PO Daily AMLODIPINE BESYLATE 66503867463 No Longer Active Lorenedada Durbin CLOBETASOL PROPIONATE 0.05 % CREA Apply small amount to affected areas on arms BID CLOBETASOL PROPIONATE 73199390184 No Longer Active Lorene Meryl Durbin LOTRISONE 0.05-1 % CREAM Apply a small amount to affected area on back BID CLOTRIMAZOLE-BETAMETHASONE 35914346824 No Longer Active Lorene Meryl Durbin CYCLOPHOSPHAMIDE 25 MG TABS take 5 tablets once daily CYCLOPHOSPHAMIDE 32244432238 No Longer Active Lorene Meryl Durbin PERCOCET 5-325 MG TAB 1 PO Q 6 hours OXYCODONE- ACETAMINOPHEN 35573543076 No Longer Active Lorenedada Durbin VALTREX 1 GM TAB 1 PO BID VALACYCLOVIR HCL 53480575870 No Longer Active Lorene Meryl Durbin ACCUPRIL 10 MG TABS 1 po daily QUINAPRIL HCL 42836761264 No Longer Active Lorenedada Durbin COZAAR 25 MG TAB 1 PO daily LOSARTAN POTASSIUM 73576318741 No Longer Active Elizabeth Dixon MAGNESIUM OXIDE 400 MG CAPS 1 PO daily MAGNESIUM OXIDE 54588980664 No Longer Active Lorenedada Durbin LOTRISONE 0.05-1 % CREAM Apply to affected areas twice daily prn CLOTRIMAZOLE-BETAMETHASONE 87658002933 No Longer Active Lorenedada Durbin FERROUS SULFATE 100 MG 1 PO daily FERROUS SULFATE 100 MG No Longer Active Lorene Meryl Durbin QUALAQUIN 324 MG CAPS 1 PO QHS prn QUININE SULFATE 35302457639 No Longer Active Lorene Meryl Durbin ROBITUSSIN A-C 10-100 MG/5ML SYRUP 1 teaspoon PO Q 4-6 hr prn ROBITUSSIN A-C 10-100 MG/5ML SYRUP 29488737152 No Longer Active Lorene Meryl uDrbin BIAXIN XL PAC 500 MG TB24 2 pills at same time daily for 7 days CLARITHROMYCIN 29050782595 No Longer Active Lorene Meryl Durbin TESSALON 200 MG CAPS 1 PO TID prn cough BENZONATATE 43143905912 No Longer Active Lorene Meryl Durbin ROBITUSSIN A-C 10-100 MG/5ML SYRUP 1 teaspoon PO Q 4-6 hr prn ROBITUSSIN A-C 10-100 MG/5ML SYRUP 68676097292 No Longer Active Lorene Meryl Durbin BIAXIN XL PAC 500 MG TB24 2 pills at same time daily for 7 days CLARITHROMYCIN 66263433684 No Longer Active Lorene Meryl Durbin KEFLEX 500 MG CAP 1 PO TID for 7 days CEPHALEXIN 70737419082 No Longer Active Lorene Meryl Durbin FERROUS SULFATE 325 (65 FE) MG TABS 1 PO daily FERROUS SULFATE 47160356441 No Longer Active Lorene Meryl Durbin CINNAMON 500 MG CAPS 1 po daily CINNAMON 78525085582 No Longer Active Lorene Meryl Durbin XANAX 0.25 MG TABS 1 po q 4-6 hrs prn ALPRAZOLAM 07049613196 No Longer Active Lorene Meryl Durbin TRIAMCINOLONE ACETONIDE 0.1 % OINT Apply as directed TRIAMCINOLONE ACETONIDE 95370498603 No Longer Active Lorene Meryl Durbin KERALAC 50 % GEL as needed UREA 08918214331 No Longer Active Lorene Meryl Durbin AMITRIPTYLINE HCL 25 MG TAB 1 PO daily at night prn AMITRIPTYLINE HCL 91004773623 No Longer Active Lorene Meryl Durbin ZOCOR 5 MG TABS 1 PO QOD (on hold) SIMVASTATIN 21803129892 No Longer Active Lorene Meryl Durbin VIAGRA 50 MG TABS prn SILDENAFIL CITRATE 38936821045 No Longer Active Lorene Meryl Durbin DARVOCET-N 100 100-650 MG TABS 1 po q 6 hrs. prn pain PROPOXYPHENE N-APAP 75164055545 No Longer Active Lorene Meryl Durbin CYCLOBENZAPRINE HCL 10 MG TABS 1 po q 12 hrs. prn CYCLOBENZAPRINE HCL 94344831293 No Longer Active Lorene Meryl Durbin LORTAB 5 5-500 MG TABS 1 as needed HYDROCODONE- ACETAMINOPHEN 80937012198 No Longer Active Lorene Meryl Durbin ALBUTEROL 90 MCG/ACT AERS 2 puffs Q4-6hrs prn ALBUTEROL 96317817676 No Longer Active Lorene Meryl Durbin ROBITUSSIN A-C 10-100 MG/5ML SYRUP 5cc PO Q 4-6 hr prn ROBITUSSIN A-C 10-100 MG/5ML SYRUP 29560494601 No Longer Active Lorene Meryl Durbin ADVAIR DISKUS 100-50 MCG/DOSE MISC 1 puff BID FLUTICASONE-SALMETEROL 55443810459 No Longer Active Lorene Meryl Durbin AUGMENTIN 500-125 MG TABS 1 PO BID AMOXICILLIN-POT CLAVULANATE 39242322179 No Longer Active Lorene Meryl Durbin PLAVIX 75 MG TABS 1 po daily CLOPIDOGREL BISULFATE 21037334734 No Longer Active Lorene Meryl Durbin AMOXIL 500 MG TABS 1 PO TID AMOXICILLIN 48751020633 No Longer Active Lorene Meryl Durbin Immunizations [...] pressure, diastolic - 8462-4 78 mm[Hg] BP leayh blood pressure, systolic - 8480-6 132 mm[Hg] BP sys pulse rate E&M - 8867-4 60 /min Heart rate respiratory rate E&M - 9279-1 14 /min Resp rate weight E&M - 3141-9 195 [lb_av] Weight Measured Diagnostic Results Date Name Value Unit Range Description Clinical Lists Update: [facility] - Chemistry Estimated Glomerular Filtration Rate (calc) [...] (RBC) count 3.54 10*6/mm3 Clinical Lists Update: [facility] - Chemistry sodium, serum 139 mmol/L potassium, serum 5.0 mmol/L creatinine, serum 1.9 mg/dL carbon dioxide, venous blood 31.0 mmol/L chloride, serum 103 mmol/L calcium, serum 9.4 mg/dL urea nitrogen, blood 27 mg/dL Estimated Glomerular Filtration Rate (calc) 37 mL/min/1.73m2 glucose, plasma fasting 133 mg/dL anion gap, serum 10 Clinical Lists Update: [facility] - Hematology red blood [...] % Encounters Code Encounter Date Provider Facility CPT-07288 Ofc Vst, Est Level III 16:59:41 CDT Lorene Durbin DO, FACP CPT-89459 Ofc Vst, Est Level III 14:28:01 CDT Lorene Durbin DO, FACP CPT-63073 Ofc Vst, Est Level III 16:47:49 CDT Lorene Durbin DO, FACP CPT-33060 Ofc Vst, Est Level III 16:04:23 CDT Lorene Durbin DO, FACP CPT-71917 Ofc Vst, Est Level III 19:00:13 [employer]OUNDS MAINTENANCE MANAGER Lorene Durbin DO, FACP CPT-29444 Ofc Vst, Est Level III 21:20:47 CDT Lorene Durbin DO, FACP CPT-26850 Ofc Vst, Est Level III 20:32:44 GROUNDS MAINTENANCE MANAGER Lorene Durbin DO, FACP CPT-86742 Ofc Vst, Est Level III 14:43:31 GROUNDS MAINTENANCE MANAGER Lorene Sorensen Durbin, DO, FACP CPT-87981 Ofc Vst, Est Level III 20:01:57 GROUNDS MAINTENANCE MANAGER Lorene Meryl Sorensen Durbin, DO, FACP CPT-79210 Ofc Vst, Est Level III 16:57:33 CDT Lorene Meryl Sorensen Durbin, DO, FACP CPT-67391 Ofc Vst, Est Level III 14:43:50 CDT Lorene Meryl Sorensen Durbin, DO, FACP CPT-68832 Ofc Vst, Est Level III 15:02:07 CDT Lorene Meryl Paulson S Durbin, DO, FACP CPT-36898 Ofc Vst, Est Level III 14:44:46 CDT Lorene Meryl Sorensen Durbin, DO, FACP CPT-17777 Ofc Vst, Est Level IV 16:13:39 CDT Lorene Meryl Sorensen Durbin, DO, FACP CPT-38530 Ofc Vst, Est Level III 11:48:41 CDT Lorene Meryl Sorensen Durbin, DO, FACP CPT-83767 Ofc Vst, Est Level III 15:46:15 CDT Lorenedada Sorensen Durbin, DO, FACP CPT-86339 Ofc Vst, Est Level IV 15:57:50 CDT Lorenedada Sorensen Durbin, DO, FACP CPT-83576 Ofc Vst, Est Level III 16:05:36 GROUNDS MAINTENANCE MANAGER Lorene Meryl Paulson S Durbin, DO, FACP CPT-03209 Ofc Vst, Est Level IV 15:52:15 GROUNDS MAINTENANCE MANAGER Lorene Paulson S Durbin, DO, FACP CPT-29393 Ofc Vst, Est Level III 15:08:06 CDT Lorene Meryl Sorensen Durbin, DO, FACP CPT-23043 Ofc Vst, Est Level IV 15:06:29 CDT Lorene Meryl Sorensen Durbin, DO, FACP CPT-32334 Ofc Vst, Est Level IV 13:29:16 CDT Lorene Sorensen Durbin, DO, FACP CPT-22362 Ofc Vst, Est Level V 13:50:55 GROUNDS MAINTENANCE MANAGER Lorene Sorensen Durbin, DO, FACP CPT-44370 Ofc Vst, Est Level IV 11:10:14 GROUNDS MAINTENANCE MANAGER Lorene Sorensen Ramakrishna, DO, FACP CPT-40348 Ofc Vst, Est Level III 15:28:22 CDT Lorenedada Sorensen Ramakrishna, DO, FACP CPT-17082 Ofc Vst, New Level IV 14:17:27 CDT Lorenedada Sorensen Ramakrishna, DO, FACP CPT-25182 Ofc Vst, New Level II 14:17:27 CDT Lorenedada Sorensen Ramakrishna, DO, FACP CPT-05505 Ofc Vst, Est Level IV 10:59:16 CDT Lorenedada Sorensen Ramakrishna, DO, FACP CPT-65424 Ofc Vst, Est Level II 16:12:29 CDT Lorene Meryl Sorensen Ramakrishna, DO, FACP CPT-35984 Ofc Vst, Est Level IV 10:53:48 CDT Lorenedada Sorensen Ramakrishna, DO, FACP CPT-71736 Office Consult, Level III 11:11:19 GROUNDS MAINTENANCE MANAGER Lorene Sorensen Ramakrishna, DO, FACP CPT-60152 Ofc Vst, Est Level IV 11:12:23 CDT Lorene Meryl Sorensen Ramakrishna, DO, FACP CPT-58520 Ofc Vst, Est Level IV 11:46:11 CDT Lorene Meryl Sorensen Durbin, DO, FACP CPT-20640 Ofc Vst, Est Level IV 15:36:14 CDT Lorene Meryl Sorensen Durbin, DO, FACP CPT-30893 Ofc Vst, Est Level IV 11:36:09 GROUNDS MAINTENANCE MANAGER Lorene Meryl Sorensen Durbin, DO, FACP CPT-42542 Ofc Vst, Est Level IV 16:28:10 CDT Lorene Meryl Sorensen Durbin, DO, FACP CPT-40974 Ofc Vst, Est Level IV 15:52:30 CDT Lorene Meryl Sorensen Durbin, DO, FACP CPT-34647 Ofc Vst, Est Level III 11:48:57 CDT Lorene Meryl Sorensen Durbin, DO, FACP CPT-67399 Ofc Vst, Est Level IV 09:15:20 GROUNDS MAINTENANCE MANAGER Lorene Meryl Sorensen Durbin, DO, FACP CPT-98975 Ofc Vst, Est Level IV 16:43:12 GROUNDS MAINTENANCE MANAGER Lorene Sorensen Durbin, DO, FACP CPT-86763 Ofc Vst, Est Level III 14:52:39 CDT Lorene Meryl Sorensen Durbin, DO, FACP CPT-96318 Ofc Vst, Est Level IV 11:27:37 CDT Lorene Meryl Sorensen Durbin, DO, FACP CPT-72021 Ofc Vst, Est Level III 09:53:01 GROUNDS MAINTENANCE MANAGER Lorene Meryl Sorensen Durbin, DO, FACP CPT-28665 Ofc Vst, Est Level IV 09:49:25 CDT Lorene Meryl Sorensen Durbin, DO, FACP CPT-62417 Ofc Vst, Est Level IV 11:33:29 CDT Lorene Durbin, DO, FACP CPT-81517 Ofc Vst, Est Level IV 14:11:50 GROUNDS MAINTENANCE MANAGER Lorene Durbin [employer] [place] CPT-34307 Ofc Vst, Est Level IV 17:26:08 GROUNDS MAINTENANCE MANAGER Lorene Durbin [employer] [facility] [place] CPT-16379 Ofc Vst, Est Level IV 10:40:42 GROUNDS MAINTENANCE MANAGER Lorene Durbin [employer] [facility] [place] CPT-59958 Ofc Vst, Est Level IV 15:05:22 CDT Lorene Meryl Durbin [employer] [place] CPT-57037 Ofc Vst, Est Level IV 14:42:32 CDT Lorene Durbin [employer] [facility] [place] CPT-83635 Ofc Vst, Est Level III 16:05:07 CDT Lorene Durbin [employer] [place] CPT-15476 Ofc Vst, Est Level V 17:24:06 CDT Lorene Durbin [employer] [facility] [place] CPT-80806 Ofc Vst, Est Level IV 16:02:46 CDT Lorene Durbin [employer] [facility] [place] CPT-13079 Ofc Vst, Est Level III 12:50:41 GROUNDS MAINTENANCE MANAGER Lorene Durbin [employer] [facility] [place] CPT-53348 Ofc Vst, Est Level II 12:09:58 GROUNDS MAINTENANCE MANAGER Lorene Durbin [employer] [facility] [place] CPT-18704 Ofc Vst, Est Level IV 09:31:48 GROUNDS MAINTENANCE MANAGER Lorene Durbin [employer] [facility] [place] CPT-96414 Ofc Vst, Est Level III 10:36:21 GROUNDS MAINTENANCE MANAGER Lorene Durbin [employer] [facility] [place] CPT-10361 Ofc Vst, Est Level IV 15:48:05 CDT Lorene Durbin [employer] [facility] [place] CPT-52839 Ofc Vst, Est Level III 11:58:31 CDT Lorene Durbin [employer] [facility] [place] CPT-27557 Ofc Vst, Est Level IV 18:14:00 CDT Lorene Durbin [facility] [place] CPT-84432 Ofc Vst, New Level III 19:15:23 GROUNDS MAINTENANCE MANAGER Lorene Durbin [facility] [place] Procedures Code Procedure Name Date Entry Date Standard Description CPT-G0439 Medicare Annual Wellness Visit 14:14:39 CDT CPT-G8445 E-Prescribing Not sent due to no medication given 21:20: 47 CDT CPT-G8445 E-Prescribing Not sent due to no medication given 20:32: 44 GROUNDS MAINTENANCE MANAGER CPT-G8445 E-Prescribing Not sent due to no medication given 14:43: 31 GROUNDS MAINTENANCE MANAGER CPT-G8445 E-Prescribing Not sent due to no medication given 20:01: 57 GROUNDS MAINTENANCE MANAGER CPT-G8445 E-Prescribing Not sent due to no medication given 16:57: 33 CDT CPT-G8445 E-Prescribing Not sent due to no medication given 14:43: 50 CDT CPT-G8445 E-Prescribing Not sent due to no medication given 15:02: 07 CDT CPT-G8443 E-Prescribing Medication Sent 14:44:46 CDT CPT-G8443 E-Prescribing Medication Sent 16:13:39 CDT CPT-65645 Biopsy, skin/subcut/mucous membrane; sngl lsn 15:46:15 CDT CPT-G8445 E-Prescribing Not sent due to no medication given 14:23: 32 CDT CPT-G0438 Medicare Annual Wellness Visit Initial 14:23:32 CDT CPT-G8445 E-Prescribing Not sent due to no medication given 15:57: 50 CDT CPT-G8443 E-Prescribing Medication Sent 15:52:15 GROUNDS MAINTENANCE MANAGER CPT-G8443 E-Prescribing Medication Sent 15:08:06 CDT CPT-42018 Injection, Pneumovax 16:28:10 CDT CPT-G8443 E-Prescribing Medication Sent 15:52:30 CDT CPT-17537 EKG w/ Interpretation 17:24:06 CDT CPT-89880 EKG w/ Interpretation 11:58:31 CDT
--- OUTSIDE RECORDS SUMMARY | 2017-12-16 05:07 | XMS REPORT | Clinical Summary ---
Author Author User, [employer] Lorene Durbin DO, FACP Address Unknown [...] Dysphagia, pharyngoesophageal phase SHINGLES, RECURRENT 053.9 Resolved Loreen Durbin Herpes zoster without mention of complication [...] Generic Name NDC Status Provider Patient Instruction FOLIC ACID 1 MG TABS 1 PO QD FOLIC ACID 70484730634 No Longer Active Lorene Durbin TRAZODONE HCL 100 MG TABS 1 PO AT HS TRAZODONE HCL 89500471407 Active Lorenedada Durbin PULMICORT 0.5 MG/2ML SUSP I VIAL-INHALE ORALLY DAILY BUDESONIDE 12482518427 Active Lorenedada Durbin PREDNISONE 5 MG TABS 1 PO DAILY PREDNISONE 99610143231 Active Lorenedada Durbin NOVOLOG FLEXPEN 100 UNIT/ML SOPN INJECT 3 SQ BEFORE MEALS INSULIN ASPART 10453754621 Active Lorenedada Durbin IPRATROPIUM-ALBUTEROL 0.5-2.5 (3) MG/3ML SOLN 1 VIAL INHALE ORALLY TID 09/17 IPRATROPIUM-ALBUTEROL 35521669307 Active Lorenedada Durbin DEPAKOTE SPRINKLES 125 MG CPSP 1 TIME DAILY DIVALPROEX SODIUM 79429991135 Active Lorenedada Durbin EXELON 4.6 MG/24HR PT24 APPLY PATCH DAILY RIVASTIGMINE 11918246489 Active Lorenedada Durbin FOLIC ACID 1 MG TABS 1 PO DAILY FOLIC ACID 86582999163 Active Lorenedada Durbin MELATONIN 3 MG TABS 1 PO AT HS FOR INSOMNIA MELATONIN 22887485757 Active Lorenedada Durbin MIRALAX POWD 17 GRAMS PO BID POLYETHYLENE GLYCOL 3350 97863824039 Active Lorenedada Durbin NORVASC 10 MG TABS 1 PO DAILY AMLODIPINE BESYLATE 18458543465 Active Lorene Meryl Durbin CELEXA 20 MG TABS 1 PO DAILY CITALOPRAM HYDROBROMIDE 03279914668 Active Lorene Meryl Durbin PAXIL 20 MG TAB 1 PO DAILY PAROXETINE HCL 54808284479 No Longer Active Lorene Meryl Durbin BISACODYL LAXATIVE 10 MG SUPP 1 MO QD PRN constipation BISACODYL 69780775415 No Longer Active Lorene Meryl Durbin COREG 6.25 MG TABS 1 PO BID CARVEDILOL 13175137356 Active Lorene Meryl Durbin BENADRYL 25 MG CAP 1 PO TID prn DIPHENHYDRAMINE HCL 11459045225 No Longer Active Lorene Meryl Durbin LACTULOSE SOLN 30 ML PO BID PRN Constipation LACTULOSE SOLN 42447156662 No Longer Active Lorene Meryl Durbin LASIX 40 MG TAB 1 PO MWF FUROSEMIDE 59112052486 No Longer Active Lorene Meryl Durbin VITAMIN D 1000 UNIT TABS 1 PO Daily CHOLECALCIFEROL 66615484926 Active Lorene Meryl Durbin ZOCOR 20 MG TABS 1 PO DAILY SIMVASTATIN 90223083535 Active Elizabeth Dixon FINASTERIDE 5 MG TABS 1 PO DAILY FINASTERIDE 48571803076 Active Lorene Meryl Durbin NAMENDA 10 MG TABS 1 PO BID MEMANTINE HCL 70697890491 Active Elizabeth Dixon KENALOG 0.1 % CREA apply to affected areas BID TRIAMCINOLONE ACETONIDE No Longer Active Lorene Meryl Durbin DILANTIN 100 MG CAP 1 PO at 7am and 2 pm and 2 PO at HS PHENYTOIN SODIUM EXTENDED 26171247135 No Longer Active Lorene Meryl Durbin PREDNISONE 20 MG TAB 1 PO daily for 7 days then resume 5mg dosing as previous PREDNISONE 62249272126 No Longer Active Lorene Meryl Durbin AUGMENTIN 500-125 MG TAB 1 PO BID AMOXICILLIN-POT CLAVULANATE 48542440687 No Longer Active Lorene Meryl Durbin OCUFLOX 0.3 % SOLN 2 drops in right ear TID for 7 days OFLOXACIN 32820671890 No Longer Active Lorene Meryl Durbin PREDNISONE 20 MG TAB 1 PO daily for 7 days PREDNISONE 10494551995 No Longer Active Lorene Meryl Durbin KENALOG 0.1 % CREA apply to affected areas BID TRIAMCINOLONE ACETONIDE No Longer Active Lorene Meryl Durbin ATARAX 25 MG TAB 1 PO Q6hrs prn itching HYDROXYZINE HCL No Longer Active Lorenedada Durbin DETROL LA 4 MG CP24 1 PO daily TOLTERODINE TARTRATE 64421669395 No Longer Active Lorene Meryl Durbin FINASTERIDE 5 MG TABS 1 PO BID FINASTERIDE 14711972740 No Longer Active Lorene Meryl Durbin BACTRIM DS 800-160 MG TAB 1 PO MWF TRIMETHOPRIM- SULFAMETHOXAZOLE 19952726233 No Longer Active Lorenedada Durbin NYSTATIN POWD Apply Topically to groin BID for gaulding NYSTATIN 22301786340 No Longer Active Lorene Meryl Durbin TERBINAFINE HCL 1 % CREA Apply to affected area BID TERBINAFINE HCL 05423290867 No Longer Active Lorene Meryl Durbin CALTRATE 600 PLUS-VIT D 600-200 MG-IU TABS 1 PO BID CALCIUM-VITAMIN D Active Elizabeth Dixon VALTREX 1 GM TAB 1 PO BID VALACYCLOVIR HCL 92595978632 No Longer Active Lorenedada Durbin TESSALON 200 MG CAPS 1 PO TID prn cough BENZONATATE 69909903527 No Longer Active Elizabeth Dixon PREDNISONE 10 MG TABS 1 PO QD PREDNISONE 64487675078 No Longer Active Lorene Meryl Durbin TESSALON 200 MG CAPS 1 PO TID prn cough BENZONATATE 31040138892 No Longer Active Lorene Meryl Durbin FLOMAX 0.4 MG CAPS 1 PO QD for urinary retention TAMSULOSIN HCL 13643999667 Active Elizabeth Dixon OMEPRAZOLE 40 MG CPDR 1 PO QD OMEPRAZOLE 11035528904 Active Elizabeth Dixon FERROUS SULFATE 325 (65 FE) MG TABS 1 PO BID FERROUS SULFATE 76972367496 Active Elizabeth Dixon COLACE 100 MG CAPS 1 PO BID prevent constipation DOCUSATE SODIUM 89048935572 Active Elizabeth Dixon ACETAMINOPHEN 325 MG TABS 2 PO Q 4hrs PRN pain or fever ACETAMINOPHEN 63582746876 Active Lorene Meryl Durbin IMURAN 50 MG TABS 3 po daily AZATHIOPRINE 58823495914 No Longer Active Lorene Meryl Durbin TOVIAZ 4 MG [id number] 1 po daily FESOTERODINE FUMARATE 61715522522 No Longer Active Lorene Meryl Durbin COREG 12.5 MG TABS 1 po bid CARVEDILOL 51877830002 No Longer Active Lorene Meryl Durbin WAVESENSE PRESTO TEST STRP Check BS Daily DX: DIABETES GLUCOSE BLOOD 01482672785 No Longer Active Lorene Meryl Durbin OMEPRAZOLE 40 MG CPDR 1 PO Daily OMEPRAZOLE 48007674481 No Longer Active Lorene Meryl Durbin FLOMAX 0.4 MG CAPS 1 PO Daily TAMSULOSIN HCL 37550155055 No Longer Active Lorene Meryl Durbin MEPRON 750 MG/5ML SUSP 5 ml PO BID ATOVAQUONE 31684738465 No Longer Active Lorene Meryl Durbin PREDNISONE 5 MG TABS 2 po daily PREDNISONE 92485713441 No Longer Active Lorene Meryl Durbin TERAZOSIN HCL 2 MG CAPS 1 PO qhs TERAZOSIN HCL 92651303720 No Longer Active Lorene Meryl Durbin VITAMIN D 1000 UNIT TABS 1 PO Daily CHOLECALCIFEROL 93186228582 No Longer Active Lorene Meryl Durbin PEPCID 20 MG TAB 1 PO daily FAMOTIDINE 91422299125 No Longer Active Lorene Meryl Durbin VITAMIN B-12 100 MCG TABS 1 po daily CYANOCOBALAMIN 25318433667 No Longer Active Lorene Meryl Durbin IRON 325 (65 FE) MG TABS 1 PO daily FERROUS SULFATE 12830402839 No Longer Active Lorene Meryl Durbin CALCIUM 600 1500 MG TABS 1 PO QAM and 2 PO QHS CALCIUM CARBONATE 57072398161 No Longer Active Lorene Meryl Durbin MULTIVITAMINS TABS 1 po daily MULTIPLE VITAMIN 76507595943 No Longer Active Lorene Meryl Durbin FISH OIL 1000 MG CAPS 1 po daily OMEGA-3 FATTY ACIDS 70035726369 No Longer Active Lorene Meryl Durbin ASPIRIN 81 MG TAB 1 PO QD ASPIRIN 86727501148 No Longer Active Lorene Meryl Durbin NORVASC 5 MG TAB 1 PO Daily AMLODIPINE BESYLATE 10329755287 No Longer Active Lorene Meryl Durbin CLOBETASOL PROPIONATE 0.05 % CREA Apply small amount to affected areas on arms BID CLOBETASOL PROPIONATE 63932469998 No Longer Active Lorene Meryl Durbin LOTRISONE 0.05-1 % CREAM Apply a small amount to affected area on back BID CLOTRIMAZOLE-BETAMETHASONE 75795835806 No Longer Active Lorene Meryl Durbin CYCLOPHOSPHAMIDE 25 MG TABS take 5 tablets once daily CYCLOPHOSPHAMIDE 60677044051 No Longer Active Lorene Meryl Durbin PERCOCET 5-325 MG TAB 1 PO Q 6 hours OXYCODONE- ACETAMINOPHEN 47703927757 No Longer Active Lorene Meryl Durbin VALTREX 1 GM TAB 1 PO BID VALACYCLOVIR HCL 11470620246 No Longer Active Lorene Meryl Durbin ACCUPRIL 10 MG TABS 1 po daily QUINAPRIL HCL 92484810044 No Longer Active Lorene Meryl Durbin COZAAR 25 MG TAB 1 PO daily LOSARTAN POTASSIUM 11533543787 No Longer Active Elizabeth Dixon MAGNESIUM OXIDE 400 MG CAPS 1 PO daily MAGNESIUM OXIDE 72392096415 No Longer Active Lorene Meryl Durbin LOTRISONE 0.05-1 % CREAM Apply to affected areas twice daily prn CLOTRIMAZOLE-BETAMETHASONE 27768040914 No Longer Active Lorene Meryl Durbin FERROUS SULFATE 100 MG 1 PO daily FERROUS SULFATE 100 MG No Longer Active Lorene Meryl Durbin QUALAQUIN 324 MG CAPS 1 PO QHS prn QUININE SULFATE 93671295832 No Longer Active Lorene Meryl Durbin ROBITUSSIN A-C 10-100 MG/5ML SYRUP 1 teaspoon PO Q 4-6 hr prn ROBITUSSIN A-C 10-100 MG/5ML SYRUP 09599465995 No Longer Active Lorene Meryl Durbin BIAXIN XL PAC 500 MG TB24 2 pills at same time daily for 7 days CLARITHROMYCIN 62510659680 No Longer Active Lorene Meryl Durbin TESSALON 200 MG CAPS 1 PO TID prn cough BENZONATATE 02441531406 No Longer Active Lorene Meryl Durbin ROBITUSSIN A-C 10-100 MG/5ML SYRUP 1 teaspoon PO Q 4-6 hr prn ROBITUSSIN A-C 10-100 MG/5ML SYRUP 36758065644 No Longer Active Lorene Meryl Durbin BIAXIN XL PAC 500 MG TB24 2 pills at same time daily for 7 days CLARITHROMYCIN 09540820220 No Longer Active Lorene Meryl Durbin KEFLEX 500 MG CAP 1 PO TID for 7 days CEPHALEXIN 14305524636 No Longer Active Lorene Meryl Durbin FERROUS SULFATE 325 (65 FE) MG TABS 1 PO daily FERROUS SULFATE 87997571526 No Longer Active Lorene Meryl Durbin CINNAMON 500 MG CAPS 1 po daily CINNAMON 29016124912 No Longer Active Lorene Meryl Durbin XANAX 0.25 MG TABS 1 po q 4-6 hrs prn ALPRAZOLAM 95368013331 No Longer Active Lorene Meryl Durbin TRIAMCINOLONE ACETONIDE 0.1 % OINT Apply as directed TRIAMCINOLONE ACETONIDE 30179100935 No Longer Active Lorene Meryl Durbin KERALAC 50 % GEL as needed UREA 46032068878 No Longer Active Lorene Meryl Durbin AMITRIPTYLINE HCL 25 MG TAB 1 PO daily at night prn AMITRIPTYLINE HCL 92173524393 No Longer Active Lorene Meryl Durbin ZOCOR 5 MG TABS 1 PO QOD (on hold) SIMVASTATIN 23217289301 No Longer Active Lorene Meryl Durbin VIAGRA 50 MG TABS prn SILDENAFIL CITRATE 99291953259 No Longer Active Lorene Meryl Durbin DARVOCET-N 100 100-650 MG TABS 1 po q 6 hrs. prn pain PROPOXYPHENE N-APAP 91585123607 No Longer Active Lorene Meryl Durbin CYCLOBENZAPRINE HCL 10 MG TABS 1 po q 12 hrs. prn CYCLOBENZAPRINE HCL 54351649002 No Longer Active Lorene Meryl Durbin LORTAB 5 5-500 MG TABS 1 as needed HYDROCODONE- ACETAMINOPHEN 17879110889 No Longer Active Lorenedada Durbin ALBUTEROL 90 MCG/ACT AERS 2 puffs Q4-6hrs prn ALBUTEROL 41078823617 No Longer Active Lorenedada Durbin ROBITUSSIN A-C 10-100 MG/5ML SYRUP 5cc PO Q 4-6 hr prn ROBITUSSIN A-C 10-100 MG/5ML SYRUP 74337065266 No Longer Active Lorenedada Durbin ADVAIR DISKUS 100-50 MCG/DOSE MISC 1 puff BID FLUTICASONE-SALMETEROL 24591274771 No Longer Active Lorenedada Durbin AUGMENTIN 500-125 MG TABS 1 PO BID AMOXICILLIN-POT CLAVULANATE 70146036580 No Longer Active Lorenedada Durbin PLAVIX 75 MG TABS 1 po daily CLOPIDOGREL BISULFATE 38202412821 No Longer Active Lorenedada Durbni AMOXIL 500 MG TABS 1 PO TID AMOXICILLIN 55267827918 No Longer Active Lorene Durbin Immunizations Vaccine Administration Date Value Standard [...] potassium, serum 5.0 mmol/L Clinical Lists Update: CBC,BMP DR QU[facility] - Chemistry calcium, serum 9.4 mg/dL glucose, plasma fasting 133 mg/dL anion gap, serum 10 sodium, serum 139 mmol/L potassium, serum 5.0 mmol/L creatinine, serum 1.9 mg/dL carbon dioxide, venous blood 31.0 mmol/L urea nitrogen, blood 27 mg/dL Estimated Glomerular Filtration Rate (calc) 37 mL/min/1.73m2 chloride, serum 103 mmol/L Clinical Lists Update: [...] LABS - Hematology hemoglobin, blood 13.4 g/dL hematocrit, blood 44 % red blood cell distribution width 14.6 % mean corpuscular volume, RBC 101 fL leukocyte count, blood 8.9 10*3/mm3 erythrocyte (RBC) count 4.31 10*6/mm3 platelet count 145 10*3/mm3 Clinical Lists Update: CBC,BMP,UA DR [facility] - Urinalysis nitrite, urine, semiquantitative neg pH, urine, semiquantitative 6.5 specific gravity, urine 1.020 urobilinogen, urine, semiquantitative (dipstick) 0.2 appearance, urine Clear Yellow WBC urine on microscopy none {Cells}/[HPF] RBC urine by microscopy none bacteria, urine microscopy none ketones, urine, by test strip neg blood in urine (hemoglobin) by dipstick trace mucus on urinalysis none epithelial cells, urine none /[LPF] protein, urine, semiquantitative (dipstick) neg hyaline casts, urine none /[LPF] bilirubin, urine neg glucose, urine, semiquantitative neg Clinical Lists Update: CBC,CMP,FLP,TSH,HgA1c,Ferritin - Chemistry alkaline phosphatase, serum 34 U/L albumin, serum 3.9 g/dL Estimated Glomerular Filtration Rate (calc) 38 [...] 9.0 mg/dL urea nitrogen, blood 28 mg/dL Clinical Lists Update: CBC,CMP,FLP,TSH,HgA1c,Ferritin - Hematology hematocrit, blood 40 % hemoglobin, blood 12.6 g/dL platelet count 132 10*3/mm3 erythrocyte (RBC) count 4.10 10*6/mm3 leukocyte count, blood 7.5 10*3/mm3 mean corpuscular volume, RBC 97 fL red blood cell distribution width 13.8 % Clinical Lists Update: CBC,CMP,FLP.UA - Chemistry anion gap, serum 8 alkaline phosphatase, serum 35 U/L urea nitrogen, blood 27 mg/dL calcium, serum 9.3 mg/dL chloride, serum 106 mmol/L cholesterol, serum 167 mg/dL carbon dioxide, venous blood 31.0 mmol/L Estimated Glomerular Filtration Rate (calc) 9.3 mL/min/1.73m2 glucose, plasma fasting 102 mg/dL cholesterol/HDL ratio, serum, percent 4.2 albumin, serum 3.7 g/dL sodium, serum 140 mmol/L triglyceride, serum, fasting 131 mg/dL bilirubin, serum, total 0.3 mg/dL alanine aminotransferase (SGPT), serum 19 U/L aspartate aminotransferase (SGOT), serum 19 U/L protein, total, serum 6.2 g/dL potassium, serum 4.7 mmol/L LDL cholesterol, serum 101 mg/dL HDL cholesterol, serum 40.0 mg/dL bilirubin, serum, direct 0.0 mg/dL creatinine, serum 1.9 mg/dL Clinical Lists Update: CBC,CMP,FLP.UA - Hematology red blood cell distribution width 14.2 % mean corpuscular volume, RBC 99 fL leukocyte count, blood 7.9 10*3/mm3 erythrocyte (RBC) count 4.10 10*6/mm3 platelet count 137 10*3/mm3 hemoglobin, blood 12.9 g/dL hematocrit, blood 41 % Clinical Lists Update: CBC,CMP,FLP.UA - Urinalysis blood in urine (hemoglobin) by dipstick trace mucus on urinalysis none epithelial cells, urine 0-5 /[LPF] hyaline [...] semiquantitative neg protein, urine, semiquantitative (dipstick) neg Clinical Lists Update: [facility] - Chemistry Estimated Glomerular Filtration Rate (calc) 38 mL/min/1.73m2 glucose, plasma fasting 125 mg/dL albumin, serum 3.5 g/dL alkaline phosphatase, serum 30 U/L urea nitrogen, blood 23 mg/dL calcium, serum 8.9 mg/dL chloride, serum 110 mmol/L carbon dioxide, venous blood 23 mmol/L creatinine, serum 1.76 mg/dL thyroid stimulating hormone, serum 1.59 u[iU]/mL potassium, serum 4.1 mmol/L protein, total, serum 6.3 g/dL aspartate aminotransferase (SGOT), serum 19 U/L alanine aminotransferase (SGPT), serum 37 U/L bilirubin, serum, total 0.5 mg/dL sodium, serum 144 mmol/L glucose, plasma fasting 111 mg/dL Estimated Glomerular Filtration Rate (calc) 38 mL/min/1.73m2 albumin, serum 3.1 g/dL alkaline phosphatase, serum 24 U/L urea nitrogen, blood 52 mg/dL calcium, serum 9.0 mg/dL chloride, serum 109 mmol/L carbon dioxide, venous blood 27 mmol/L creatinine, serum 1.77 mg/dL potassium, serum 4.2 mmol/L protein, total, serum 5.4 g/dL aspartate aminotransferase (SGOT), serum 18 U/L alanine aminotransferase (SGPT), serum 21 U/L bilirubin, serum, total 0.5 mg/dL sodium, serum 143 mmol/L anion gap, serum 11 Clinical Lists Update: [facility] - Hematology hematocrit, blood 38 % red blood cell distribution width 12.9 % mean corpuscular volume, RBC 94.9 fL leukocyte count, blood 9.78 10*3/mm3 erythrocyte (RBC) count 4.28 10*6/mm3 platelet count 93 10*3/mm3 hemoglobin, blood 12.6 g/dL hematocrit, blood 40.6 % red blood cell distribution width 12.8 % mean corpuscular volume, RBC 94 fL leukocyte count, blood 6.5 10*3/mm3 erythrocyte (RBC) count 4.00 10*6/mm3 platelet count 125 10*3/mm3 hemoglobin, blood 13.5 g/dL Clinical Lists Update: [facility] [...] % Encounters Code Encounter Date Provider Facility CPT-93746 Ofc Vst, Est Level III 16:04:23 CDT Lorene Durbin DO, FACP CPT-42073 Ofc Vst, Est Level III 19:00:13 [facility] Lorene Durbin DO, FACP CPT-74839 Ofc Vst, Est Level III 21:20:47 CDT Lorene Durbin DO, FACP CPT-22684 Ofc Vst, Est Level III 20:32:44 [facility] Lorene Durbin DO, FACP CPT-82446 Ofc Vst, Est Level III 14:43:31 [facility] Lorene Durbin DO, FACP CPT-66001 Ofc Vst, Est Level III 20:01:57 [facility] Lorenedada Sorensen Durbin, DO, FACP CPT-08737 Ofc Vst, Est Level III 16:57:33 CDT Lorene Meryl Sorensen Durbin, DO, FACP CPT-68665 Ofc Vst, Est Level III 14:43:50 CDT Lorene Meryl Sorensen Durbin, DO, FACP CPT-12089 Ofc Vst, Est Level III 15:02:07 CDT Lorene Meryl Sorensen Durbin, DO, FACP CPT-07057 Ofc Vst, Est Level III 14:44:46 CDT Lorene Meryl Sorensen Durbin, DO, FACP CPT-75617 Ofc Vst, Est Level IV 16:13:39 CDT Lorene Meryl Sorensen Durbin, DO, FACP CPT-61891 Ofc Vst, Est Level III 11:48:41 CDT Lorene Meryl Sorensen Durbin, DO, FACP CPT-43187 Ofc Vst, Est Level III 15:46:15 CDT Lorenedada Sorensen Durbin, DO, FACP CPT-58028 Ofc Vst, Est Level IV 15:57:50 CDT Lorene Meryl Sorensen Durbin, DO, FACP CPT-87044 Ofc Vst, Est Level III 16:05:36 [facility] Lorene Sorensen Durbin, DO, FACP CPT-18311 Ofc Vst, Est Level IV 15:52:15 [facility] Lorene Sorensen Durbin, DO, FACP CPT-23200 Ofc Vst, Est Level III 15:08:06 CDT Lorene Meryl Sorensen Ramakrishna, DO, FACP CPT-66635 Ofc Vst, Est Level IV 15:06:29 CDT Lorenedada Sorensen Durbin, DO, FACP CPT-96829 Ofc Vst, Est Level IV 13:29:16 CDT Lorene Meryl Sorensen Durbin, DO, FACP CPT-36762 Ofc Vst, Est Level V 13:50:55 [facility] Lorene Meryl Sorensen Durbin, DO, FACP CPT-12872 Ofc Vst, Est Level IV 11:10:14 [facility] Lorene Sorensen Durbin, DO, FACP CPT-21720 Ofc Vst, Est Level III 15:28:22 CDT Lorene Meryl Sorensen Ramakrishna, DO, FACP CPT-58308 Ofc Vst, New Level IV 14:17:27 CDT Lorene Meryl Sorensen Ramakrishna, DO, FACP CPT-05654 Ofc Vst, New Level II 14:17:27 CDT Lorenedada Sorensen Durbin, DO, FACP CPT-20768 Ofc Vst, Est Level IV 10:59:16 CDT Lorene Meryl Sorensen Durbin, DO, FACP CPT-15716 Ofc Vst, Est Level II 16:12:29 CDT Lorenedada Sorensen Ramakrishna, DO, FACP CPT-79349 Ofc Vst, Est Level IV 10:53:48 CDT Lorenedada Sorensen Ramakrishna, DO, FACP CPT-94653 Office Consult, Level III 11:11:19 [facility] Lorene Meryl Sorensen Durbin, DO, FACP CPT-04106 Ofc Vst, Est Level IV 11:12:23 CDT Lorenedada Sorensen Ramakrishna, DO, FACP CPT-81725 Ofc Vst, Est Level IV 11:46:11 CDT Lorene Meryl Sorensen Durbin, DO, FACP CPT-23825 Ofc Vst, Est Level IV 15:36:14 CDT Lorene Meryl Sorensen Durbin, DO, FACP CPT-95428 Ofc Vst, Est Level IV 11:36:09 [facility] Lorene Sorensen Durbin, DO, FACP CPT-54999 Ofc Vst, Est Level IV 16:28:10 CDT Lorene Meryl Sorensen Durbin, DO, FACP CPT-05690 Ofc Vst, Est Level IV 15:52:30 CDT Lorene Meryl Sorensen Ramakrishna, DO, FACP CPT-10070 Ofc Vst, Est Level III 11:48:57 CDT Lorene Meryl Sorensen Ramakrishna, DO, FACP CPT-89144 Ofc Vst, Est Level IV 09:15:20 [facility] Lorenedada Sorensen Ramakrishna, DO, FACP CPT-44026 Ofc Vst, Est Level IV 16:43:12 [facility] Lorene Sorensen Durbin, DO, FACP CPT-83585 Ofc Vst, Est Level III 14:52:39 CDT Lorenedada Sorensen Ramakrishna, DO, FACP CPT-32885 Ofc Vst, Est Level IV 11:27:37 CDT Lorene Meryl Sorensen Ramakrishna, DO, FACP CPT-74606 Ofc Vst, Est Level III 09:53:01 [facility] Lorene Meryl Sorensen Durbin, DO, FACP CPT-19909 Ofc Vst, Est Level IV 09:49:25 CDT Lorene Meryl Sorensen Durbin, DO, FACP CPT-46086 Ofc Vst, Est Level IV 11:33:29 CDT Lorene Meryl Sorensen Ramakrishna, DO, FACP CPT-86222 Ofc Vst, Est Level IV 14:11:50 [facility] Lorene Durbin [facility] [place] CPT-93764 Ofc Vst, Est Level IV 17:26:08 [facility] Lorene Durbin [facility] [place] CPT-95292 Ofc Vst, Est Level IV 10:40:42 [facility] Lorene Durbin [facility] [place] CPT-31841 Ofc Vst, Est Level IV 15:05:22 CDT Lorene Meryl Durbin [facility] [place] CPT-85434 Ofc Vst, Est Level IV 14:42:32 CDT Lorene Meryl Durbin [facility] [place] CPT-04077 Ofc Vst, Est Level III 16:05:07 CDT Lorenedada Durbin [facility] [place] CPT-57583 Ofc Vst, Est Level V 17:24:06 CDT Lorenedada Durbin [facility] [place] CPT-77114 Ofc Vst, Est Level IV 16:02:46 CDT Lorene Durbin [facility] [place] CPT-77115 Ofc Vst, Est Level III 12:50:41 [facility] Lorene Durbin [facility] [place] CPT-69422 Ofc Vst, Est Level II 12:09:58 [facility] Lorene Durbin [facility] [place] CPT-67965 Ofc Vst, Est Level IV 09:31:48 [facility] Lorene Durbin [facility] [place] CPT-75733 Ofc Vst, Est Level III 10:36:21 [facility] Lorene Durbin [facility] [place] CPT-04349 Ofc Vst, Est Level IV 15:48:05 CDT Lorene Durbin [facility] [place] CPT-65385 Ofc Vst, Est Level III 11:58:31 CDT Lorene Durbin [facility] [place] CPT-58158 Ofc Vst, Est Level IV 18:14:00 CDT Lorene Durbin [facility] [place] CPT-75921 Ofc Vst, New Level III 19:15:23 [facility] Loerne Durbin [facility] [place] Procedures Code Procedure Name Date Entry Date Standard Description CPT-G0439 Medicare Annual Wellness Visit 14:14:39 CDT CPT-G8445 E-Prescribing Not sent due to no medication given 21:20: 47 CDT CPT-G8445 E-Prescribing Not sent due to no medication given 20:32: 44 [facility] CPT-G8445 E-Prescribing Not sent due to no medication given 14:43: 31 [facility] CPT-G8445 E-Prescribing Not sent due to no medication given 20:01: 57 [facility] CPT-G8445 E-Prescribing Not sent due to no medication given 16:57: 33 CDT CPT-G8445 E-Prescribing Not sent due to no medication given 14:43: 50 CDT CPT-G8445 E-Prescribing Not sent due to no medication given 15:02: 07 CDT CPT-G8443 E-Prescribing Medication Sent 14:44:46 CDT CPT-G8443 E-Prescribing Medication Sent 16:13:39 CDT CPT-02321 Biopsy, skin/subcut/mucous membrane; sngl lsn 15:46:15 CDT CPT-G8445 E-Prescribing Not sent due to no medication given 14:23: 32 CDT CPT-G0438 Medicare Annual Wellness Visit Initial 14:23:32 CDT CPT-G8445 E-Prescribing Not sent due to no medication given 15:57: 50 CDT CPT-G8443 E-Prescribing Medication Sent 15:52:15 [facility] CPT-G8443 E-Prescribing Medication Sent 15:08:06 CDT CPT-84417 Injection, Pneumovax 16:28:10 CDT CPT-G8443 E-Prescribing Medication Sent 15:52:30 CDT CPT-63763 EKG w/ Interpretation 17:24:06 CDT CPT-35143 EKG w/ Interpretation 11:58:31 CDT
--- OUTSIDE RECORDS SUMMARY | 2017-12-16 05:09 | XMS REPORT | Clinical Summary ---
Author Author User, [employer] Lorene Durbin DO, FACP Address Unknown [...] 1 PO dialy for three days PREDNISONE [id number] Active Lorene Durbin SYMBICORT 160-4.5 MCG/ACT AERO 2 puffs BID BUDESONIDE- FORMOTEROL FUMARATE 66891601828 Active Lorene Durbin PULMICORT 0.5 MG/2ML SUSP I VIAL-INHALE ORALLY DAILY BUDESONIDE 57970524695 No Longer Active Lorene Durbin FOLIC ACID 1 MG TABS 1 PO QD FOLIC ACID 14895987768 No Longer Active Lorene Durbin TRAZODONE HCL 100 MG TABS 1 PO AT HS TRAZODONE HCL 96990601118 Active Elizabeth Dixon PREDNISONE 5 MG TABS 1 PO DAILY PREDNISONE 88843440855 Active Elizabeth Dixon NOVOLOG FLEXPEN 100 UNIT/ML SOPN INJECT 3 SQ BEFORE MEALS INSULIN ASPART 10352650652 Active Lorene Durbin IPRATROPIUM-ALBUTEROL 0.5-2.5 (3) MG/3ML SOLN 1 VIAL INHALE ORALLY TID 09/17 IPRATROPIUM-ALBUTEROL 70174784661 Active Lorene Durbin DEPAKOTE SPRINKLES 125 MG CPSP 1 TIME DAILY DIVALPROEX SODIUM 85024535005 Active Lorene Durbin EXELON 4.6 MG/24HR PT24 APPLY PATCH DAILY RIVASTIGMINE 44810808335 Active Lorene Meryl Ramakrishna FOLIC ACID 1 MG TABS 1 PO DAILY FOLIC ACID 50483389180 Active Lorene Meryl Ramakrishna MELATONIN 3 MG TABS 1 PO AT HS FOR INSOMNIA MELATONIN 25449738082 Active Elizabethjenn Dixon MIRALAX POWD 17 GRAMS PO BID POLYETHYLENE GLYCOL 3350 70345582283 Active Lorene Meryl Ramakrishna NORVASC 10 MG TABS 1 PO DAILY AMLODIPINE BESYLATE 15977154265 Active Lorene Meryl Ramakrishna CELEXA 20 MG TABS 1 PO DAILY CITALOPRAM HYDROBROMIDE 48932027044 Active Lorene Meryl Ramakrishna PAXIL 20 MG TAB 1 PO DAILY PAROXETINE HCL 34650616101 No Longer Active Lorene Meryl Durbin BISACODYL LAXATIVE 10 MG SUPP 1 CA QD PRN constipation BISACODYL 81590620862 No Longer Active Lorene Mreyl Durbin COREG 6.25 MG TABS 1 PO BID CARVEDILOL 75733126847 Active Lorene Meryl Durbin BENADRYL 25 MG CAP 1 PO TID prn DIPHENHYDRAMINE HCL 31367279961 No Longer Active Lorene Meryl Durbin LACTULOSE SOLN 30 ML PO BID PRN Constipation LACTULOSE SOLN 48961296407 No Longer Active Lorene Meryl Durbin LASIX 40 MG TAB 1 PO MWF FUROSEMIDE 62437361028 No Longer Active Lorene Meryl Durbin VITAMIN D 1000 UNIT TABS 1 PO Daily CHOLECALCIFEROL 80474637753 Active Lorene Meryl Durbin ZOCOR 20 MG TABS 1 PO DAILY SIMVASTATIN 07203895710 Active Elizabeth Dixon FINASTERIDE 5 MG TABS 1 PO DAILY FINASTERIDE 37606770328 Active Lorene Meryl Durbin NAMENDA 10 MG TABS 1 PO BID MEMANTINE HCL 58894944195 Active Elizabeth Dixon KENALOG 0.1 % CREA apply to affected areas BID TRIAMCINOLONE ACETONIDE No Longer Active Lorenedada Durbin DILANTIN 100 MG CAP 1 PO at 7am and 2 pm and 2 PO at HS PHENYTOIN SODIUM EXTENDED 43961829104 No Longer Active Lorene Meryl Durbin PREDNISONE 20 MG TAB 1 PO daily for 7 days then resume 5mg dosing as previous PREDNISONE 58566984518 No Longer Active Lorene Meryl Durbin AUGMENTIN 500-125 MG TAB 1 PO BID AMOXICILLIN-POT CLAVULANATE 64850872566 No Longer Active Lorenedada Durbin OCUFLOX 0.3 % SOLN 2 drops in right ear TID for 7 days OFLOXACIN 31941861656 No Longer Active Lorene Meryl Durbin PREDNISONE 20 MG TAB 1 PO daily for 7 days PREDNISONE 29427174234 No Longer Active Lorenedada Durbin KENALOG 0.1 % CREA apply to affected areas BID TRIAMCINOLONE ACETONIDE No Longer Active Lorenedada Durbin ATARAX 25 MG TAB 1 PO Q6hrs prn itching HYDROXYZINE HCL No Longer Active Lorenedada Durbin DETROL LA 4 MG CP24 1 PO daily TOLTERODINE TARTRATE 66249077571 No Longer Active Lorenedada Durbin FINASTERIDE 5 MG TABS 1 PO BID FINASTERIDE 40306323482 No Longer Active Lorenedada Durbin BACTRIM DS 800-160 MG TAB 1 PO MWF TRIMETHOPRIM- SULFAMETHOXAZOLE 01310614213 No Longer Active Lorene Meryl Durbin NYSTATIN POWD Apply Topically to groin BID for gaulding NYSTATIN 81934710507 No Longer Active Lorenedada Durbin TERBINAFINE HCL 1 % CREA Apply to affected area BID TERBINAFINE HCL 96324408921 No Longer Active Lorene Meryl Durbin CALTRATE 600 PLUS-VIT D 600-200 MG-IU TABS 1 PO BID CALCIUM-VITAMIN D Active Elizabeth Dixon VALTREX 1 GM TAB 1 PO BID VALACYCLOVIR HCL 70840144003 No Longer Active Lorene Meryl Durbin TESSALON 200 MG CAPS 1 PO TID prn cough BENZONATATE 65154282584 No Longer Active Elizabeth Dixon PREDNISONE 10 MG TABS 1 PO QD PREDNISONE 36464485750 No Longer Active Lorene Meryl Durbin TESSALON 200 MG CAPS 1 PO TID prn cough BENZONATATE 07098172253 No Longer Active Lorenedada Durbin FLOMAX 0.4 MG CAPS 1 PO QD for urinary retention TAMSULOSIN HCL 40432828011 Active Elizabethjenn Dixon OMEPRAZOLE 40 MG CPDR 1 PO QD OMEPRAZOLE 07798198821 Active Elizabeth [place] FERROUS SULFATE 325 (65 FE) MG TABS 1 PO BID FERROUS SULFATE 18338846875 Active Elizabethjenn Dixon COLACE 100 MG CAPS 1 PO BID prevent constipation DOCUSATE SODIUM 55792162675 Active Elizabeth Dixon ACETAMINOPHEN 325 MG TABS 2 PO Q 4hrs PRN pain or fever ACETAMINOPHEN 34760281167 Active Lorene Meryl Durbin IMURAN 50 MG TABS 3 po daily AZATHIOPRINE 43084339184 No Longer Active Lorenedada Durbni TOVIAZ 4 MG [id number] 1 po daily FESOTERODINE FUMARATE 44998499774 No Longer Active Lorene Meryl Durbin COREG 12.5 MG TABS 1 po bid CARVEDILOL 52461808960 No Longer Active Lorene Meryl Durbin WAVESENSE PRESTO TEST STRP Check BS Daily DX: DIABETES GLUCOSE BLOOD 90033426798 No Longer Active Lorene Meryl Durbin OMEPRAZOLE 40 MG CPDR 1 PO Daily OMEPRAZOLE 52414176064 No Longer Active Lorene Meryl Durbin FLOMAX 0.4 MG CAPS 1 PO Daily TAMSULOSIN HCL 07486562421 No Longer Active Lorene Meryl Durbin MEPRON 750 MG/5ML SUSP 5 ml PO BID ATOVAQUONE 97293404058 No Longer Active Lorene Meryl Durbin PREDNISONE 5 MG TABS 2 po daily PREDNISONE 22929988014 No Longer Active Lorene Meryl Durbin TERAZOSIN HCL 2 MG CAPS 1 PO qhs TERAZOSIN HCL 65484414217 No Longer Active Lorene Meryl Durbin VITAMIN D 1000 UNIT TABS 1 PO Daily CHOLECALCIFEROL 66292188879 No Longer Active Lorene Meryl Durbin PEPCID 20 MG TAB 1 PO daily FAMOTIDINE 12647720571 No Longer Active Lorene Meryl Durbin VITAMIN B-12 100 MCG TABS 1 po daily CYANOCOBALAMIN 56868566385 No Longer Active Lorene Meryl Durbin IRON 325 (65 FE) MG TABS 1 PO daily FERROUS SULFATE 03666987969 No Longer Active Lorene Meryl Durbin CALCIUM 600 1500 MG TABS 1 PO QAM and 2 PO QHS CALCIUM CARBONATE 71362270378 No Longer Active Lorene Meryl Durbin MULTIVITAMINS TABS 1 po daily MULTIPLE VITAMIN 76096193813 No Longer Active Lorene Meryl Durbin FISH OIL 1000 MG CAPS 1 po daily OMEGA-3 FATTY ACIDS 44664314241 No Longer Active Lorene Meryl Durbin ASPIRIN 81 MG TAB 1 PO QD ASPIRIN 26811888535 No Longer Active Lorene Meryl Durbin NORVASC 5 MG TAB 1 PO Daily AMLODIPINE BESYLATE 21837924701 No Longer Active Lorene Meryl Durbin CLOBETASOL PROPIONATE 0.05 % CREA Apply small amount to affected areas on arms BID CLOBETASOL PROPIONATE 80883258375 No Longer Active Lorene Meryl Durbin LOTRISONE 0.05-1 % CREAM Apply a small amount to affected area on back BID CLOTRIMAZOLE-BETAMETHASONE 89762500391 No Longer Active Lorene Meryl Durbin CYCLOPHOSPHAMIDE 25 MG TABS take 5 tablets once daily CYCLOPHOSPHAMIDE 35135510997 No Longer Active Lorene Meryl Durbin PERCOCET 5-325 MG TAB 1 PO Q 6 hours OXYCODONE- ACETAMINOPHEN 66478723079 No Longer Active Lorene Meryl Durbin VALTREX 1 GM TAB 1 PO BID VALACYCLOVIR HCL 48693291239 No Longer Active Lorene Meryl Durbin ACCUPRIL 10 MG TABS 1 po daily QUINAPRIL HCL 56899620638 No Longer Active Lorene Meryl Durbin COZAAR 25 MG TAB 1 PO daily LOSARTAN POTASSIUM 95001235173 No Longer Active Elizabeth Dixon MAGNESIUM OXIDE 400 MG CAPS 1 PO daily MAGNESIUM OXIDE 29033888691 No Longer Active Lorenedada Durbin LOTRISONE 0.05-1 % CREAM Apply to affected areas twice daily prn CLOTRIMAZOLE-BETAMETHASONE 00807041810 No Longer Active Lorenedada Durbin FERROUS SULFATE 100 MG 1 PO daily FERROUS SULFATE 100 MG No Longer Active Lorene Meryl Durbin QUALAQUIN 324 MG CAPS 1 PO QHS prn QUININE SULFATE 76761590190 No Longer Active Lorene Meryl Durbin ROBITUSSIN A-C 10-100 MG/5ML SYRUP 1 teaspoon PO Q 4-6 hr prn ROBITUSSIN A-C 10-100 MG/5ML SYRUP 54711788475 No Longer Active Lorene Meryl Durbin BIAXIN XL PAC 500 MG TB24 2 pills at same time daily for 7 days CLARITHROMYCIN 73821708385 No Longer Active Lorene Meryl uDrbin TESSALON 200 MG CAPS 1 PO TID prn cough BENZONATATE 71407624765 No Longer Active Lorene Meryl Durbin ROBITUSSIN A-C 10-100 MG/5ML SYRUP 1 teaspoon PO Q 4-6 hr prn ROBITUSSIN A-C 10-100 MG/5ML SYRUP 96468266793 No Longer Active Lorene Meryl Durbin BIAXIN XL PAC 500 MG TB24 2 pills at same time daily for 7 days CLARITHROMYCIN 33976706987 No Longer Active Lorene Meryl Durbin KEFLEX 500 MG CAP 1 PO TID for 7 days CEPHALEXIN 44038974841 No Longer Active Lorene Meryl Durbin FERROUS SULFATE 325 (65 FE) MG TABS 1 PO daily FERROUS SULFATE 85809079933 No Longer Active Lorene Meryl Durbin CINNAMON 500 MG CAPS 1 po daily CINNAMON 50156043952 No Longer Active Lorene Meryl Durbin XANAX 0.25 MG TABS 1 po q 4-6 hrs prn ALPRAZOLAM 79429838343 No Longer Active Lorene Meryl Durbin TRIAMCINOLONE ACETONIDE 0.1 % OINT Apply as directed TRIAMCINOLONE ACETONIDE 40969373156 No Longer Active Lorene Meryl Durbin KERALAC 50 % GEL as needed UREA 79749857311 No Longer Active Lorene Meryl Durbin AMITRIPTYLINE HCL 25 MG TAB 1 PO daily at night prn AMITRIPTYLINE HCL 17749175409 No Longer Active Lorene Meryl Durbin ZOCOR 5 MG TABS 1 PO QOD (on hold) SIMVASTATIN 26335946085 No Longer Active Lorene Meryl Durbin VIAGRA 50 MG TABS prn SILDENAFIL CITRATE 18481571934 No Longer Active Lorene Meryl Durbin DARVOCET-N 100 100-650 MG TABS 1 po q 6 hrs. prn pain PROPOXYPHENE N-APAP 56453583573 No Longer Active Lorene Meryl Durbin CYCLOBENZAPRINE HCL 10 MG TABS 1 po q 12 hrs. prn CYCLOBENZAPRINE HCL 21385486126 No Longer Active Lorene Meryl Durbin LORTAB 5 5-500 MG TABS 1 as needed HYDROCODONE- ACETAMINOPHEN 45807255841 No Longer Active Lorene Meryl Durbin ALBUTEROL 90 MCG/ACT AERS 2 puffs Q4-6hrs prn ALBUTEROL 77840715901 No Longer Active Lorene Meryl Durbin ROBITUSSIN A-C 10-100 MG/5ML SYRUP 5cc PO Q 4-6 hr prn ROBITUSSIN A-C 10-100 MG/5ML SYRUP 84679799421 No Longer Active Lorene Meryl Durbin ADVAIR DISKUS 100-50 MCG/DOSE MISC 1 puff BID FLUTICASONE-SALMETEROL 91311024584 No Longer Active Lorene Meryl Durbin AUGMENTIN 500-125 MG TABS 1 PO BID AMOXICILLIN-POT CLAVULANATE 14295616874 No Longer Active Lorene Meryl Durbin PLAVIX 75 MG TABS 1 po daily CLOPIDOGREL BISULFATE 90175092125 No Longer Active Lorene Meryl Durbin AMOXIL 500 MG TABS 1 PO TID AMOXICILLIN 05185855191 No Longer Active Lorene Meryl Durbin Immunizations [...] Value Unit Range Description Clinical Lists Update: [facility] - Chemistry Estimated Glomerular Filtration [...] (RBC) count 3.54 10*6/mm3 Clinical Lists Update: CBC,[facility] - Chemistry sodium, serum 139 mmol/L potassium, serum 5.0 mmol/L creatinine, serum 1.9 mg/dL carbon dioxide, venous blood 31.0 mmol/L chloride, serum 103 mmol/L calcium, serum 9.4 mg/dL urea nitrogen, blood 27 mg/dL Estimated Glomerular Filtration Rate (calc) 37 mL/min/1.73m2 glucose, plasma fasting 133 mg/dL anion gap, serum 10 Clinical Lists Update: [facility] - Hematology [...] % Encounters Code Encounter Date Provider Facility CPT-80071 Ofc Vst, Est Level III 16:59:41 CDT Lorene Durbin DO, FACP CPT-91541 Ofc Vst, Est Level III 14:28:01 CDT Lorene Durbin DO, FACP CPT-30230 Ofc Vst, Est Level III 16:47:49 CDT Lorene Durbin DO, FACP CPT-17883 Ofc Vst, Est Level III 16:04:23 CDT Lorene Durbin DO, FACP CPT-27706 Ofc Vst, Est Level III 19:00:13 [employer] Lorene Durbin DO, FACP CPT-24474 Ofc Vst, Est Level III 21:20:47 CDT Lorene Durbin DO, FACP CPT-58719 Ofc Vst, Est Level III 20:32:44 [employer] Lorene Durbin DO, FACP CPT-08571 Ofc Vst, Est Level III 14:43:31 [employer] ADVISOR Lorene Sorensen Durbin, DO, FACP CPT-44586 Ofc Vst, Est Level III 20:01:57 [employer] ADVISOR Lorene Meryl Paulson S Durbin, DO, FACP CPT-79654 Ofc Vst, Est Level III 16:57:33 CDT Lorene Meryl Sorensen Durbin, DO, FACP CPT-21258 Ofc Vst, Est Level III 14:43:50 CDT Lorene Meryl Sorensen Durbin, DO, FACP CPT-16973 Ofc Vst, Est Level III 15:02:07 CDT Lorene Meryl Paulson S Durbin, DO, FACP CPT-07080 Ofc Vst, Est Level III 14:44:46 CDT Lorene Meryl Sorensen Durbin, DO, FACP CPT-71522 Ofc Vst, Est Level IV 16:13:39 CDT Lorene Meryl Sorensen Durbin, DO, FACP CPT-33282 Ofc Vst, Est Level III 11:48:41 CDT Lorene Meryl Paulson S Durbin, DO, FACP CPT-30102 Ofc Vst, Est Level III 15:46:15 CDT Lorenedada Sorensen Durbin, DO, FACP CPT-28556 Ofc Vst, Est Level IV 15:57:50 CDT Lorene Meryl Sorensen Durbin, DO, FACP CPT-41191 Ofc Vst, Est Level III 16:05:36 H[employer] RESOURCES ADVISOR Lorene Meryl Pedersoni S Durbin, DO, FACP CPT-54232 Ofc Vst, Est Level IV 15:52:15 H[employer] RESOURCES ADVISOR Lorene Meryl Pedersoni S Durbin, DO, FACP CPT-43006 Ofc Vst, Est Level III 15:08:06 CDT Lorene Meryl Paulson S Durbin, DO, FACP CPT-42982 Ofc Vst, Est Level IV 15:06:29 CDT Lorene Meryl Sorensen Ramakrishna, DO, FACP CPT-75794 Ofc Vst, Est Level IV 13:29:16 CDT Lorene Meryl Sorensen Ramakrishna, DO, FACP CPT-90001 Ofc Vst, Est Level V 13:50:55 [employer] RESOURCES ADVISOR Lorene Sorensen Ramakrishna, DO, FACP CPT-45262 Ofc Vst, Est Level IV 11:10:14 H[employer] RESOURCES ADVISOR Lorene Sorensen Ramakrishna, DO, FACP CPT-93305 Ofc Vst, Est Level III 15:28:22 CDT Lorenedada Sorensen Ramakrishna, DO, FACP CPT-79223 Ofc Vst, New Level IV 14:17:27 CDT Lorene Meryl Sorensen Ramakrishna, DO, FACP CPT-86857 Ofc Vst, New Level II 14:17:27 CDT Lorene Meryl Sorensen Ramakrishna, DO, FACP CPT-10055 Ofc Vst, Est Level IV 10:59:16 CDT Lorenedada Sorensen Ramakrishna, DO, FACP CPT-74378 Ofc Vst, Est Level II 16:12:29 CDT Lorene Meryl Sorensen Ramakrishna, DO, FACP CPT-01307 Ofc Vst, Est Level IV 10:53:48 CDT Lorene Meryl Sorensen Ramakrishna, DO, FACP CPT-06252 Office Consult, Level III 11:11:19 H[employer]OURCES ADVISOR Lorene Sorensen Ramakrishna, DO, FACP CPT-67686 Ofc Vst, Est Level IV 11:12:23 CDT Lorene Meryl Sorensen Ramakrishna, DO, FACP CPT-12085 Ofc Vst, Est Level IV 11:46:11 CDT Lorene Meryl Sorensen Durbin, DO, FACP CPT-52483 Ofc Vst, Est Level IV 15:36:14 CDT Lorene Meryl Sorensen Durbin, DO, FACP CPT-14088 Ofc Vst, Est Level IV 11:36:09 H[employer]OURCES ADVISOR Lorene Meryl Sorensen Durbin, DO, FACP CPT-00124 Ofc Vst, Est Level IV 16:28:10 CDT Lorene Meryl Sorensen Durbin, DO, FACP CPT-74495 Ofc Vst, Est Level IV 15:52:30 CDT Lorene Meryl Sorensen Durbin, DO, FACP CPT-14827 Ofc Vst, Est Level III 11:48:57 CDT Lorene Meryl Sorensen Durbin, DO, FACP CPT-87703 Ofc Vst, Est Level IV 09:15:20 H[employer] RESOURCES ADVISOR Lorene Meryl Sorensen Durbin, DO, FACP CPT-36780 Ofc Vst, Est Level IV 16:43:12 H[employer] RESOURCES ADVISOR Lorene Sorensen Durbin, DO, FACP CPT-63172 Ofc Vst, Est Level III 14:52:39 CDT Lorene Mreyl Sorensen Durbin, DO, FACP CPT-11851 Ofc Vst, Est Level IV 11:27:37 CDT Lorene Meryl Sorensen Durbin, DO, FACP CPT-82104 Ofc Vst, Est Level III 09:53:01 HUM[employer] RESOURCES ADVISOR Lorene Sorensen Durbin, DO, FACP CPT-03517 Ofc Vst, Est Level IV 09:49:25 CDT Lorene Meryl Sorensen Durbin, DO, FACP CPT-98364 Ofc Vst, Est Level IV 11:33:29 CDT Lorene Durbin DO, FACP CPT-13248 Ofc Vst, Est Level IV 14:11:50 H[employer] RESOURCES ADVISOR Lorene Durbin [facility] CPT-62142 Ofc Vst, Est Level IV 17:26:08 HUM[employer] RESOURCES ADVISOR Lorene Durbin [facility] CPT-66463 Ofc Vst, Est Level IV 10:40:42 [employer] RES[employer] ADVISOR Lorene Durbin [facility] CPT-68600 Ofc Vst, Est Level IV 15:05:22 CDT Lorene Meryl Durbin [facility] CPT-70459 Ofc Vst, Est Level IV 14:42:32 CDT Lorene Durbin [facility] CPT-46397 Ofc Vst, Est Level III 16:05:07 CDT Lorene Durbin [facility] CPT-95907 Ofc Vst, Est Level V 17:24:06 CDT Lorenedada Durbin [facility] CPT-94396 Ofc Vst, Est Level IV 16:02:46 CDT Lorene Durbin [facility] CPT-15638 Ofc Vst, Est Level III 12:50:41 [employer] ADVISOR Lorene Durbin [facility] CPT-30799 Ofc Vst, Est Level II 12:09:58 H[employer] RESOURCES ADVISOR Lorene Durbin [facility] CPT-44945 Ofc Vst, Est Level IV 09:31:48 H[employer] RESOURCES ADVISOR Lorene Durbin [facility] CPT-15546 Ofc Vst, Est Level III 10:36:21 H[employer] RESOURCES ADVISOR Lorene Durbin [facility] CPT-79007 Ofc Vst, Est Level IV 15:48:05 CDT Lorene Durbin [facility] CPT-80813 Ofc Vst, Est Level III 11:58:31 CDT Lorene Meryl Durbin [facility] CPT-19171 Ofc Vst, Est Level IV 18:14:00 CDT Lorene Durbin [facility] CPT-22070 Ofc Vst, New Level III 19:15:23 HUMAN RESOURCES ADVISOR Lorenedada Durbin [facility] Procedures Code Procedure Name Date Entry Date Standard Description CPT-G0439 Medicare Annual Wellness Visit 14:14:39 CDT CPT-G8445 E-Prescribing Not sent due to no medication given 21:20: 47 CDT CPT-G8445 E-Prescribing Not sent due to no medication given 20:32: 44 [employer] ADVISOR CPT-G8445 E-Prescribing Not sent due to no medication given 14:43: 31 [employer]OURCES ADVISOR CPT-G8445 E-Prescribing Not sent due to no medication given 20:01: 57 [employer]OURCES ADVISOR CPT-G8445 E-Prescribing Not sent due to no medication given 16:57: 33 CDT CPT-G8445 E-Prescribing Not sent due to no medication given 14:43: 50 CDT CPT-G8445 E-Prescribing Not sent due to no medication given 15:02: 07 CDT CPT-G8443 E-Prescribing Medication Sent 14:44:46 CDT CPT-G8443 E-Prescribing Medication Sent 16:13:39 CDT CPT-84095 Biopsy, skin/subcut/mucous membrane; sngl lsn 15:46:15 CDT CPT-G8445 E-Prescribing Not sent due to no medication given 14:23: 32 CDT CPT-G0438 Medicare Annual Wellness Visit Initial 14:23:32 CDT CPT-G8445 E-Prescribing Not sent due to no medication given 15:57: 50 CDT CPT-G8443 E-Prescribing Medication Sent 15:52:15 H[employer]OURCES ADVISOR CPT-G8443 E-Prescribing Medication Sent 15:08:06 CDT CPT-12600 Injection, Pneumovax 16:28:10 CDT CPT-G8443 E-Prescribing Medication Sent 15:52:30 CDT CPT-24106 EKG w/ Interpretation 17:24:06 CDT CPT-83822 EKG w/ Interpretation 11:58:31 CDT
--- OUTSIDE RECORDS SUMMARY | 2017-12-16 05:10 | XMS REPORT | Clinical Summary ---
Author Author User, [employer] Lorene Durbin DO, FACP Address Unknown [...] CAROTID ARTERY STENOSIS, LEFT 433.10 Active Lorene Duribn Occlusion and stenosis of carotid artery, without [...] Instruction BISACODYL LAXATIVE [address] QD PRN constipation BISACODYL 14851207511 No Longer Active Lorene Durbin PREDNISONE 2.5 MG TABS 1 PO DAILY PREDNISONE 19399106750 Active Lorenedada Durbni COREG 6.25 MG TABS 1 PO BID CARVEDILOL 28862409913 Active Lorenedada Durbin BENADRYL 25 MG CAP 1 PO TID prn DIPHENHYDRAMINE HCL 29727842154 No Longer Active Lorenedada Durbin LACTULOSE SOLN 30 ML PO BID PRN Constipation LACTULOSE SOLN 50951731781 No Longer Active Lorene Durbin LASIX 40 MG TAB 1 PO MWF FUROSEMIDE 49622720038 No Longer Active Lorene Durbin VITAMIN D 1000 UNIT TABS 1 PO Daily CHOLECALCIFEROL 21969303628 Active Lorene Durbin ZOCOR 20 MG TABS 1 PO DAILY SIMVASTATIN 68248256607 Active Elizabeth Dixon FINASTERIDE 5 MG TABS 1 PO DAILY FINASTERIDE 50954007340 Active Lorene Durbin NAMENDA 10 MG TABS 1 PO BID MEMANTINE HCL 24274698950 Active Elizabeth Dixon KENALOG 0.1 % CREA apply to affected areas BID TRIAMCINOLONE ACETONIDE No Longer Active Lorene Durbin DILANTIN 100 MG CAP 1 PO at 7am and 2 pm and 2 PO at HS PHENYTOIN SODIUM EXTENDED 78624222660 No Longer Active Lorene Durbin PREDNISONE 20 MG TAB 1 PO daily for 7 days then resume 5mg dosing as previous PREDNISONE 67474327312 No Longer Active Lorene Meryl Durbin AUGMENTIN 500-125 MG TAB 1 PO BID AMOXICILLIN-POT CLAVULANATE 65363670219 No Longer Active Lorene Meryl Durbin OCUFLOX 0.3 % SOLN 2 drops in right ear TID for 7 days OFLOXACIN 73137220104 No Longer Active Lorene Meryl Durbin PREDNISONE 20 MG TAB 1 PO daily for 7 days PREDNISONE 47965731683 No Longer Active Lorene Meryl Durbin KENALOG 0.1 % CREA apply to affected areas BID TRIAMCINOLONE ACETONIDE No Longer Active Lorene Meryl Durbni ATARAX 25 MG TAB 1 PO Q6hrs prn itching HYDROXYZINE HCL No Longer Active Lorene Meryl Durbin DETROL LA 4 MG CP24 1 PO daily TOLTERODINE TARTRATE 68897901478 No Longer Active Lorene Meryl Durbin FINASTERIDE 5 MG TABS 1 PO BID FINASTERIDE 93894861859 No Longer Active Lorenedada Durbin BACTRIM DS 800-160 MG TAB 1 PO MWF TRIMETHOPRIM- SULFAMETHOXAZOLE 65122767292 No Longer Active Lorene Meryl Durbin NYSTATIN POWD Apply Topically to groin BID for gaulding NYSTATIN 18689776445 No Longer Active Lorene Meryl Durbin TERBINAFINE HCL 1 % CREA Apply to affected area BID TERBINAFINE HCL 62786322974 No Longer Active Lorene Meryl Durbin CALTRATE 600 PLUS-VIT D 600-200 MG-IU TABS 1 PO BID CALCIUM-VITAMIN D Active Elizabeth Dixon VALTREX 1 GM TAB 1 PO BID VALACYCLOVIR HCL 11755969861 No Longer Active Lorene Meryl Durbin TESSALON 200 MG CAPS 1 PO TID prn cough BENZONATATE 75887865482 No Longer Active Elizabethjenn Dixon PREDNISONE 10 MG TABS 1 PO QD PREDNISONE 41544045152 No Longer Active Lorene Durbin PAXIL 20 MG TAB 1 PO DAILY PAROXETINE HCL 40667017633 Active Elizabeth Dixon TESSALON 200 MG CAPS 1 PO TID prn cough BENZONATATE 15801917341 No Longer Active Lorenedada Durbin FLOMAX 0.4 MG CAPS 1 PO QD for urinary retention TAMSULOSIN HCL 80712138539 Active Elizabeth Lizarragatis OMEPRAZOLE 40 MG CPDR 1 PO QD OMEPRAZOLE 30004745169 Active Elizabeth Lizarragatis FOLIC ACID 1 MG TABS 1 PO QD FOLIC ACID 36806336150 Active Elizabeth Dixon FERROUS SULFATE 325 (65 FE) MG TABS 1 PO BID FERROUS SULFATE 94351782609 Active Elizabeth Dixon COLACE 100 MG CAPS 1 PO BID prevent constipation DOCUSATE SODIUM 55851689230 Active Elizabeth Dixon ACETAMINOPHEN 325 MG TABS 2 PO Q 4hrs PRN pain or fever ACETAMINOPHEN 06990063267 Active Lorenedada Durbin IMURAN 50 MG TABS 3 po daily AZATHIOPRINE 32103014033 No Longer Active Lorenedada Durbin TOVIAZ 4 MG [id number] 1 po daily FESOTERODINE FUMARATE 11225492678 No Longer Active Lorenedada Durbin COREG 12.5 MG TABS 1 po bid CARVEDILOL 47365614537 No Longer Active Lorene Durbin WAVESENSE PRESTO TEST STRP Check BS Daily DX: DIABETES GLUCOSE BLOOD 25001851550 No Longer Active Lorene Durbin OMEPRAZOLE 40 MG CPDR 1 PO Daily OMEPRAZOLE 16304852255 No Longer Active Lorenedada Durbin FLOMAX 0.4 MG CAPS 1 PO Daily TAMSULOSIN HCL 32959764632 No Longer Active Lorene Meryl Durbin MEPRON 750 MG/5ML SUSP 5 ml PO BID ATOVAQUONE 17376843095 No Longer Active Lorene Meryl Durbin PREDNISONE 5 MG TABS 2 po daily PREDNISONE 07725833688 No Longer Active Lorene Meryl Durbin TERAZOSIN HCL 2 MG CAPS 1 PO qhs TERAZOSIN HCL 06640372853 No Longer Active Lorene Meryl Durbin VITAMIN D 1000 UNIT TABS 1 PO Daily CHOLECALCIFEROL 53077036267 No Longer Active Lorene Meryl Durbin PEPCID 20 MG TAB 1 PO daily FAMOTIDINE 55438188806 No Longer Active Lorene Meryl Durbin VITAMIN B-12 100 MCG TABS 1 po daily CYANOCOBALAMIN 00361988416 No Longer Active Lorene Meryl Durbin IRON 325 (65 FE) MG TABS 1 PO daily FERROUS SULFATE 98944471088 No Longer Active Lorene Meryl Durbin CALCIUM 600 1500 MG TABS 1 PO QAM and 2 PO QHS CALCIUM CARBONATE 16886825681 No Longer Active Lorene Meryl Durbin MULTIVITAMINS TABS 1 po daily MULTIPLE VITAMIN 18184780347 No Longer Active Lorene Meryl Durbin FISH OIL 1000 MG CAPS 1 po daily OMEGA-3 FATTY ACIDS 89168167596 No Longer Active Lorene Meryl Durbin ASPIRIN 81 MG TAB 1 PO QD ASPIRIN 14186910668 No Longer Active Lorene Meryl Durbin NORVASC 5 MG TAB 1 PO Daily AMLODIPINE BESYLATE 83426864878 No Longer Active Lorene Meryl Durbin CLOBETASOL PROPIONATE 0.05 % CREA Apply small amount to affected areas on arms BID CLOBETASOL PROPIONATE 85253505841 No Longer Active Lorene Meryl Durbin LOTRISONE 0.05-1 % CREAM Apply a small amount to affected area on back BID CLOTRIMAZOLE-BETAMETHASONE 97885596145 No Longer Active Lorene Meryl Durbin CYCLOPHOSPHAMIDE 25 MG TABS take 5 tablets once daily CYCLOPHOSPHAMIDE 66343477763 No Longer Active Lorene Meryl Durbin PERCOCET 5-325 MG TAB 1 PO Q 6 hours OXYCODONE- ACETAMINOPHEN 43663168765 No Longer Active Lorene Meryl Durbin VALTREX 1 GM TAB 1 PO BID VALACYCLOVIR HCL 01326898868 No Longer Active Lorene Meryl Durbin ACCUPRIL 10 MG TABS 1 po daily QUINAPRIL HCL 57042545170 No Longer Active Lorene Meryl Durbin COZAAR 25 MG TAB 1 PO daily LOSARTAN POTASSIUM 23629416328 No Longer Active Elizabeth Dixon MAGNESIUM OXIDE 400 MG CAPS 1 PO daily MAGNESIUM OXIDE 62168682189 No Longer Active Lorene Meryl Durbin LOTRISONE 0.05-1 % CREAM Apply to affected areas twice daily prn CLOTRIMAZOLE-BETAMETHASONE 35197784857 No Longer Active Lorenedada Durbin FERROUS SULFATE 100 MG 1 PO daily FERROUS SULFATE 100 MG No Longer Active Lorene Meryl Durbin QUALAQUIN 324 MG CAPS 1 PO QHS prn QUININE SULFATE 21222608656 No Longer Active Lorene Meryl Durbin ROBITUSSIN A-C 10-100 MG/5ML SYRUP 1 teaspoon PO Q 4-6 hr prn ROBITUSSIN A-C 10-100 MG/5ML SYRUP 16397859006 No Longer Active Lorene Meryl Durbin BIAXIN XL PAC 500 MG TB24 2 pills at same time daily for 7 days CLARITHROMYCIN 97917890334 No Longer Active Lorene Meryl Durbin TESSALON 200 MG CAPS 1 PO TID prn cough BENZONATATE 99888019356 No Longer Active Lorene Meryl Durbin ROBITUSSIN A-C 10-100 MG/5ML SYRUP 1 teaspoon PO Q 4-6 hr prn ROBITUSSIN A-C 10-100 MG/5ML SYRUP 55510479857 No Longer Active Lorene Meryl Durbin BIAXIN XL PAC 500 MG TB24 2 pills at same time daily for 7 days CLARITHROMYCIN 44349581432 No Longer Active Lorene Meryl Durbin KEFLEX 500 MG CAP 1 PO TID for 7 days CEPHALEXIN 46984815029 No Longer Active Lorene Meryl Durbin FERROUS SULFATE 325 (65 FE) MG TABS 1 PO daily FERROUS SULFATE 00546204417 No Longer Active Lorene Meryl Durbin CINNAMON 500 MG CAPS 1 po daily CINNAMON 17025694681 No Longer Active Lorene Meryl Durbin XANAX 0.25 MG TABS 1 po q 4-6 hrs prn ALPRAZOLAM 53773924334 No Longer Active Lorene Meryl Durbin TRIAMCINOLONE ACETONIDE 0.1 % OINT Apply as directed TRIAMCINOLONE ACETONIDE 14641627643 No Longer Active Lorene Meryl Durbin KERALAC 50 % GEL as needed UREA 30022667544 No Longer Active Lorene Meryl Durbin AMITRIPTYLINE HCL 25 MG TAB 1 PO daily at night prn AMITRIPTYLINE HCL 92231636507 No Longer Active Lorene Meryl Durbin ZOCOR 5 MG TABS 1 PO QOD (on hold) SIMVASTATIN 81659408713 No Longer Active Lorene Meryl Durbin VIAGRA 50 MG TABS prn SILDENAFIL CITRATE 89446870559 No Longer Active Lorene Meryl Durbin DARVOCET-N 100 100-650 MG TABS 1 po q 6 hrs. prn pain PROPOXYPHENE N-APAP 26157021604 No Longer Active Lorenedada Durbin CYCLOBENZAPRINE HCL 10 MG TABS 1 po q 12 hrs. prn CYCLOBENZAPRINE HCL 23186206805 No Longer Active Lorene Meryl Durbin LORTAB 5 5-500 MG TABS 1 as needed HYDROCODONE- ACETAMINOPHEN 71345432080 No Longer Active Lorene Meryl Durbin ALBUTEROL 90 MCG/ACT AERS 2 puffs Q4-6hrs prn ALBUTEROL 64903514578 No Longer Active Lorene Meryl Durbin ROBITUSSIN A-C 10-100 MG/5ML SYRUP 5cc PO Q 4-6 hr prn ROBITUSSIN A-C 10-100 MG/5ML SYRUP 36662278245 No Longer Active Lorenedada Durbin ADVAIR DISKUS 100-50 MCG/DOSE MISC 1 puff BID FLUTICASONE-SALMETEROL 50768867500 No Longer Active Lorene Meryl Durbin AUGMENTIN 500-125 MG TABS 1 PO BID AMOXICILLIN-POT CLAVULANATE 38594536422 No Longer Active Lorene Meryl Durbin PLAVIX 75 MG TABS 1 po daily CLOPIDOGREL BISULFATE 19093202939 No Longer Active Lorene Meryl Durbin AMOXIL 500 MG TABS 1 PO TID AMOXICILLIN 31435244775 No Longer Active Lorenedada Durbin Immunizations Vaccine [...] 10*6/mm3 Encounters Code Encounter Date Provider Facility CPT-82666 Ofc Vst, Est Level III 16:04:23 CDT Lorene MerylJamison Levinener, DO, FACP CPT-61022 Ofc Vst, Est Level III 19:00:13 [employer] Lorenedada Durbin, DO, FACP CPT-19370 Ofc Vst, Est Level III 21:20:47 CDT Lorene Meryl Durbin, DO, FACP CPT-02494 Ofc Vst, Est Level III 20:32:44 [employer] Lorene Durbin, DO, FACP CPT-57636 Ofc Vst, Est Level III 14:43:31 [employer] Lorene Durbin, DO, FACP CPT-07760 Ofc Vst, Est Level III 20:01:57 [employer] Lorene Durbin, DO, FACP CPT-13805 Ofc Vst, Est Level III 16:57:33 CDT Lorene Durbin, DO, FACP CPT-47305 Ofc Vst, Est Level III 14:43:50 CDT Lorenedada Durbin, DO, FACP CPT-02480 Ofc Vst, Est Level III 15:02:07 CDT Lorenedada Durbin, DO, FACP CPT-99628 Ofc Vst, Est Level III 14:44:46 CDT Lorene Durbin, DO, FACP CPT-78225 Ofc Vst, Est Level IV 16:13:39 CDT Lorenedada Durbin, DO, FACP CPT-93905 Ofc Vst, Est Level III 11:48:41 CDT Lorene Meryl Sorensen Durbin, DO, FACP CPT-55217 Ofc Vst, Est Level III 15:46:15 CDT Lorene Meryl Pedersoni S Durbin, DO, FACP CPT-31469 Ofc Vst, Est Level IV 15:57:50 CDT Lorene Meryl Paulson S Durbin, DO, FACP CPT-83617 Ofc Vst, Est Level III 16:05:36 [employer] Lorene Meryl Pedersoni S Durbin, DO, FACP CPT-60566 Ofc Vst, Est Level IV 15:52:15 [employer] Lorene Meryl Pedersoni S Durbin, DO, FACP CPT-41009 Ofc Vst, Est Level III 15:08:06 CDT Lorene Meryl Sorensen Durbin, DO, FACP CPT-52730 Ofc Vst, Est Level IV 15:06:29 CDT Lorene Meryl Pedersoni S Durbin, DO, FACP CPT-62880 Ofc Vst, Est Level IV 13:29:16 CDT Lorene Meryl Paulson S Durbin, DO, FACP CPT-75194 Ofc Vst, Est Level V 13:50:55 [employer] Lorene Meryl Paulson S Durbin, DO, FACP CPT-60691 Ofc Vst, Est Level IV 11:10:14 [employer] Lorene Meryl Paulson S Durbin, DO, FACP CPT-42034 Ofc Vst, Est Level III 15:28:22 CDT Lorene Meryl Paulson S Durbin, DO, FACP CPT-43059 Ofc Vst, New Level IV 14:17:27 CDT Lorene Meryl Paulson S Ramakrishna, DO, FACP CPT-05685 Ofc Vst, New Level II 14:17:27 CDT Lorenedada Sorensen Durbin, DO, FACP CPT-14933 Ofc Vst, Est Level IV 10:59:16 CDT Lorene Meryl Sorensen Durbin, DO, FACP CPT-00386 Ofc Vst, Est Level II 16:12:29 CDT Lorene Meryl Sorensen Durbin, DO, FACP CPT-89422 Ofc Vst, Est Level IV 10:53:48 CDT Lorene Meryl Sorensen Ramakrishna, DO, FACP CPT-40489 Office Consult, Level III 11:11:19 [employer] Lorene Sorensen Ramakrishna, DO, FACP CPT-09415 Ofc Vst, Est Level IV 11:12:23 CDT Lorenedada Sorensen Ramakrishna, DO, FACP CPT-49252 Ofc Vst, Est Level IV 11:46:11 CDT Lorenedada Sorensen Ramakrishna, DO, FACP CPT-93334 Ofc Vst, Est Level IV 15:36:14 CDT Lorene Meryl Sorensen Durbin, DO, FACP CPT-44678 Ofc Vst, Est Level IV 11:36:09 [employer] Lorene Sorensen Ramakrishna, DO, FACP CPT-55773 Ofc Vst, Est Level IV 16:28:10 CDT Lorene Meryl Sorensen Durbin, DO, FACP CPT-72051 Ofc Vst, Est Level IV 15:52:30 CDT Lorene Meryl Sorensen Durbin, DO, FACP CPT-11548 Ofc Vst, Est Level III 11:48:57 CDT Lorene Meryl Sorensen Durbin, DO, FACP CPT-49787 Ofc Vst, Est Level IV 09:15:20 [employer] Lorene Meryl Sorensen Ramakrishna, DO, FACP CPT-53228 Ofc Vst, Est Level IV 16:43:12 [employer] Lorenedada Sheth Ramakrishna Lorene Edu Ramakrishna, DO, FACP CPT-82307 Ofc Vst, Est Level III 14:52:39 CDT Lorene Sheth Durbin Lorene Edu Ramakrishna, DO, FACP CPT-70018 Ofc Vst, Est Level IV 11:27:37 CDT Lorene Meryl Levinener Lorene Sorensen Ramakrishna, DO, FACP CPT-80962 Ofc Vst, Est Level III 09:53:01 [employer] Lorenedada Sheth Ramakrishna Durbin, DO, FACP CPT-06514 Ofc Vst, Est Level IV 09:49:25 CDT Lorenedada Sheth Ramakrishna Paulson Edu Ramakrishna, DO, FACP CPT-75265 Ofc Vst, Est Level IV 11:33:29 CDT Lorene Meryl Durbin Lorene Sorensen Ramakrishna, DO, FACP CPT-18413 Ofc Vst, Est Level IV 14:11:50 [employer] Lorene Durbin [facility] [place] CPT-60857 Ofc Vst, Est Level IV 17:26:08 [employer] Lorene Durbin [facility] [place] CPT-49904 Ofc Vst, Est Level IV 10:40:42 [employer] Lorene Durbin [facility] [place] CPT-01759 Ofc Vst, Est Level IV 15:05:22 CDT Lorene Meryl Durbin [facility] [place] CPT-21692 Ofc Vst, Est Level IV 14:42:32 CDT Lorenedada Durbin [facility] [place] CPT-00518 Ofc Vst, Est Level III 16:05:07 CDT Lorene Durbin [facility] [place] CPT-64938 Ofc Vst, Est Level V 17:24:06 CDT Lorene Meryl Durbin [facility] [place] CPT-50328 Ofc Vst, Est Level IV 16:02:46 CDT Lorene Meryl Ramakrsihna [facility] [place] CPT-51324 Ofc Vst, Est Level III 12:50:41 [employer] Lorene Meryl Ramakrishna [facility] [place] CPT-34095 Ofc Vst, Est Level II 12:09:58 [employer] Lorene Merylgladys Durbin [facility] [place] CPT-22276 Ofc Vst, Est Level IV 09:31:48 [employer] Lorenedada Durbin [facility] [place] CPT-47188 Ofc Vst, Est Level III 10:36:21 [employer] Lorene Merylgladys Durbin [facility] [place] CPT-73154 Ofc Vst, Est Level IV 15:48:05 CDT Lorene Meryl Durbin [facility] [place] CPT-85324 Ofc Vst, Est Level III 11:58:31 CDT Lorene Merylgladys Durbin [facility] [place] CPT-94326 Ofc Vst, Est Level IV 18:14:00 CDT Lorene Meryl Ramakrishna [facility] [place] CPT-00966 Ofc Vst, New Level III 19:15:23 [employer] Lorenedada Durbin [facility] [place] Procedures Code Procedure Name Date Entry Date Standard Description CPT-G0439 Medicare Annual Wellness Visit 14:14:39 CDT CPT-G8445 E-Prescribing Not sent due to no medication given 21:20: 47 CDT CPT-G8445 E-Prescribing Not sent due to no medication given 20:32: 44 [employer] CPT-G8445 E-Prescribing Not sent due to no medication given 14:43: 31 [employer] CPT-G8445 E-Prescribing Not sent due to no medication given 20:01: 57 [employer] CPT-G8445 E-Prescribing Not sent due to no medication given 16:57: 33 CDT CPT-G8445 E-Prescribing Not sent due to no medication given 14:43: 50 CDT CPT-G8445 E-Prescribing Not sent due to no medication given 15:02: 07 CDT CPT-G8443 E-Prescribing Medication Sent 14:44:46 CDT CPT-G8443 E-Prescribing Medication Sent 16:13:39 CDT CPT-64887 Biopsy, skin/subcut/mucous membrane; sngl lsn 15:46:15 CDT CPT-G8445 E-Prescribing Not sent due to no medication given 14:23: 32 CDT CPT-G0438 Medicare Annual Wellness Visit Initial 14:23:32 CDT CPT-G8445 E-Prescribing Not sent due to no medication given 15:57: 50 CDT CPT-G8443 E-Prescribing Medication Sent 15:52:15 [employer] CPT-G8443 E-Prescribing Medication Sent 15:08:06 CDT CPT-61540 Injection, Pneumovax 16:28:10 CDT CPT-G8443 E-Prescribing Medication Sent 15:52:30 CDT CPT-60631 EKG w/ Interpretation 17:24:06 CDT CPT-08823 EKG w/ Interpretation 11:58:31 CDT
--- OUTSIDE RECORDS SUMMARY | 2017-12-16 05:12 | XMS REPORT | Clinical Summary ---
Author Author User, [employer] Lorene Durbin DO, FACP Address Unknown [...] Durbin Cramp of limb VASCULITIS 447.6 Resolved Lornee Durbin Arteritis, unspecified CHEST PAIN 786.50 Resolved oLrene Durbin Unspecified chest pain BRONCHITIS 490 Resolved [...] pain, unspecified site ANEMIA NOS 285.9 Resolved oLrene Durbin Anemia, unspecified CELLULITIS 682.9 Resolved Lorene [...] TO CONDITIONS CLASSIFIED ELSEWHERE 293.0 Resolved Lorene Dubrin Delirium due to conditions classified elsewhere MEMORY [...] MG TABS 1 PO QD FOLIC ACID 48804228765 No Longer Active Lorene Durbin TRAZODONE HCL 100 MG TABS 1 PO AT HS TRAZODONE HCL 81122882609 Active Lorenedada Durbin PULMICORT 0.5 MG/2ML SUSP I VIAL-INHALE ORALLY DAILY BUDESONIDE 62046587511 Active Lorenedada Durbin PREDNISONE 5 MG TABS 1 PO DAILY PREDNISONE 64537626824 Active Lorenedada Durbin NOVOLOG FLEXPEN 100 UNIT/ML SOPN INJECT 3 SQ BEFORE MEALS INSULIN ASPART 69503272219 Active Lorenedada Durbin IPRATROPIUM-ALBUTEROL 0.5-2.5 (3) MG/3ML SOLN 1 VIAL INHALE ORALLY TID 09/17 IPRATROPIUM-ALBUTEROL 38384742617 Active Lorenedada Durbin DEPAKOTE SPRINKLES 125 MG CPSP 1 TIME DAILY DIVALPROEX SODIUM 55399872516 Active Lorenedada Durbin EXELON 4.6 MG/24HR PT24 APPLY PATCH DAILY RIVASTIGMINE 68706266005 Active Lorene Durbin FOLIC ACID 1 MG TABS 1 PO DAILY FOLIC ACID 78081587629 Active Lorenedada Durbin MELATONIN 3 MG TABS 1 PO AT HS FOR INSOMNIA MELATONIN 67094843745 Active Lorenedada Durbin MIRALAX POWD 17 GRAMS PO BID POLYETHYLENE GLYCOL 3350 58148190665 Active Lorenedada Durbin NORVASC 10 MG TABS 1 PO DAILY AMLODIPINE BESYLATE 06885238741 Active Lorenedada Durbin CELEXA 20 MG TABS 1 PO DAILY CITALOPRAM HYDROBROMIDE 98333196364 Active Lorene Meryl Durbin PAXIL 20 MG TAB 1 PO DAILY PAROXETINE HCL 34979891503 No Longer Active Lorene Meryl Durbin BISACODYL LAXATIVE 10 MG SUPP 1 MI QD PRN constipation BISACODYL 14158130458 No Longer Active Lorene Meryl Durbin COREG 6.25 MG TABS 1 PO BID CARVEDILOL 06513578636 Active Lorene Meryl Durbin BENADRYL 25 MG CAP 1 PO TID prn DIPHENHYDRAMINE HCL 75827045051 No Longer Active Lorene Meryl Durbin LACTULOSE SOLN 30 ML PO BID PRN Constipation LACTULOSE SOLN 38226892699 No Longer Active Lorene Meryl Durbin LASIX 40 MG TAB 1 PO MWF FUROSEMIDE 74170079929 No Longer Active Lorene Meryl Durbin VITAMIN D 1000 UNIT TABS 1 PO Daily CHOLECALCIFEROL 19588446982 Active Lorene Meryl Durbin ZOCOR 20 MG TABS 1 PO DAILY SIMVASTATIN 04025012577 Active Elizabeth Dixon FINASTERIDE 5 MG TABS 1 PO DAILY FINASTERIDE 07719132897 Active Lorene Meryl Durbin NAMENDA 10 MG TABS 1 PO BID MEMANTINE HCL 90155627130 Active Elizabeth Dixon KENALOG 0.1 % CREA apply to affected areas BID TRIAMCINOLONE ACETONIDE No Longer Active Lorene Meryl Durbin DILANTIN 100 MG CAP 1 PO at 7am and 2 pm and 2 PO at HS PHENYTOIN SODIUM EXTENDED 10430066788 No Longer Active Lorene Meryl Durbin PREDNISONE 20 MG TAB 1 PO daily for 7 days then resume 5mg dosing as previous PREDNISONE 70171678636 No Longer Active Lorene Meryl Durbin AUGMENTIN 500-125 MG TAB 1 PO BID AMOXICILLIN-POT CLAVULANATE 44276812349 No Longer Active Lorene Meryl Durbin OCUFLOX 0.3 % SOLN 2 drops in right ear TID for 7 days OFLOXACIN 17626143226 No Longer Active Lorene Meryl Durbin PREDNISONE 20 MG TAB 1 PO daily for 7 days PREDNISONE 60881472263 No Longer Active Lorene Meryl Durbin KENALOG 0.1 % CREA apply to affected areas BID TRIAMCINOLONE ACETONIDE No Longer Active Lorene Meryl Durbin ATARAX 25 MG TAB 1 PO Q6hrs prn itching HYDROXYZINE HCL No Longer Active Lorene Meryl Durbin DETROL LA 4 MG CP24 1 PO daily TOLTERODINE TARTRATE 67968372810 No Longer Active Lorene Meryl Durbin FINASTERIDE 5 MG TABS 1 PO BID FINASTERIDE 91142272300 No Longer Active Lorene Meryl Durbin BACTRIM DS 800-160 MG TAB 1 PO MWF TRIMETHOPRIM- SULFAMETHOXAZOLE 79635872161 No Longer Active Lorenedada Durbin NYSTATIN POWD Apply Topically to groin BID for gaulding NYSTATIN 00994207669 No Longer Active Lorenedada Durbin TERBINAFINE HCL 1 % CREA Apply to affected area BID TERBINAFINE HCL 70222849838 No Longer Active Lorene Meryl Durbin CALTRATE 600 PLUS-VIT D 600-200 MG-IU TABS 1 PO BID CALCIUM-VITAMIN D Active Elizabeth Dixon VALTREX 1 GM TAB 1 PO BID VALACYCLOVIR HCL 80976244466 No Longer Active Lorene Meryl Durbin TESSALON 200 MG CAPS 1 PO TID prn cough BENZONATATE 72682304297 No Longer Active Elizabeth Dixon PREDNISONE 10 MG TABS 1 PO QD PREDNISONE 31352979216 No Longer Active Lorene Meryl Durbin TESSALON 200 MG CAPS 1 PO TID prn cough BENZONATATE 30967730287 No Longer Active Lorene Meryl Durbin FLOMAX 0.4 MG CAPS 1 PO QD for urinary retention TAMSULOSIN HCL 37789785028 Active Elizabeth Dixon OMEPRAZOLE 40 MG CPDR 1 PO QD OMEPRAZOLE 20112157436 Active Elizabeth Dixon FERROUS SULFATE 325 (65 FE) MG TABS 1 PO BID FERROUS SULFATE 22207695189 Active Elizabeth Dixon COLACE 100 MG CAPS 1 PO BID prevent constipation DOCUSATE SODIUM 38478455355 Active Elizabeth Dixon ACETAMINOPHEN 325 MG TABS 2 PO Q 4hrs PRN pain or fever ACETAMINOPHEN 90559220847 Active Lorene Meryl Durbin IMURAN 50 MG TABS 3 po daily AZATHIOPRINE 03028052481 No Longer Active Lorene Meryl Durbin TOVIAZ 4 MG [id number] 1 po daily FESOTERODINE FUMARATE 88752147055 No Longer Active Lorene Meryl Durbin COREG 12.5 MG TABS 1 po bid CARVEDILOL 85737620225 No Longer Active Lorene Meryl Durbin WAVESENSE PRESTO TEST STRP Check BS Daily DX: DIABETES GLUCOSE BLOOD 03828298513 No Longer Active Lorene Meryl Durbin OMEPRAZOLE 40 MG CPDR 1 PO Daily OMEPRAZOLE 14743951022 No Longer Active Lorene Meryl Durbin FLOMAX 0.4 MG CAPS 1 PO Daily TAMSULOSIN HCL 57866112469 No Longer Active Lorene Meryl Durbin MEPRON 750 MG/5ML SUSP 5 ml PO BID ATOVAQUONE 64502268039 No Longer Active Lorene Meryl Durbin PREDNISONE 5 MG TABS 2 po daily PREDNISONE 82514081365 No Longer Active Lorene Meryl Durbin TERAZOSIN HCL 2 MG CAPS 1 PO qhs TERAZOSIN HCL 72516457762 No Longer Active Lorene Meryl Durbin VITAMIN D 1000 UNIT TABS 1 PO Daily CHOLECALCIFEROL 57100478830 No Longer Active Lorene Meryl Durbin PEPCID 20 MG TAB 1 PO daily FAMOTIDINE 07063533751 No Longer Active Lorene Meryl Durbin VITAMIN B-12 100 MCG TABS 1 po daily CYANOCOBALAMIN 53606802852 No Longer Active Lorene Meryl Durbin IRON 325 (65 FE) MG TABS 1 PO daily FERROUS SULFATE 97408327228 No Longer Active Lorene Meryl Durbin CALCIUM 600 1500 MG TABS 1 PO QAM and 2 PO QHS CALCIUM CARBONATE 95198012413 No Longer Active Lorene Meryl Durbin MULTIVITAMINS TABS 1 po daily MULTIPLE VITAMIN 43248950594 No Longer Active Lorene Meryl Durbin FISH OIL 1000 MG CAPS 1 po daily OMEGA-3 FATTY ACIDS 64218093516 No Longer Active Lorene Meryl Durbin ASPIRIN 81 MG TAB 1 PO QD ASPIRIN 55239007998 No Longer Active Lorene Meryl Durbin NORVASC 5 MG TAB 1 PO Daily AMLODIPINE BESYLATE 29029147842 No Longer Active Lorene Meryl Durbin CLOBETASOL PROPIONATE 0.05 % CREA Apply small amount to affected areas on arms BID CLOBETASOL PROPIONATE 01535077758 No Longer Active Lorene Meryl Durbin LOTRISONE 0.05-1 % CREAM Apply a small amount to affected area on back BID CLOTRIMAZOLE-BETAMETHASONE 36042796034 No Longer Active Lorene Meryl Durbin CYCLOPHOSPHAMIDE 25 MG TABS take 5 tablets once daily CYCLOPHOSPHAMIDE 13584074841 No Longer Active Lorene Meryl Durbin PERCOCET 5-325 MG TAB 1 PO Q 6 hours OXYCODONE- ACETAMINOPHEN 42130813673 No Longer Active Lorene Meryl Durbin VALTREX 1 GM TAB 1 PO BID VALACYCLOVIR HCL 55270052750 No Longer Active Lorene Meryl Durbin ACCUPRIL 10 MG TABS 1 po daily QUINAPRIL HCL 71002616762 No Longer Active Lorene Meryl Durbin COZAAR 25 MG TAB 1 PO daily LOSARTAN POTASSIUM 83621306131 No Longer Active Elizabeth Dixon MAGNESIUM OXIDE 400 MG CAPS 1 PO daily MAGNESIUM OXIDE 75058935541 No Longer Active Lorene Meryl Durbin LOTRISONE 0.05-1 % CREAM Apply to affected areas twice daily prn CLOTRIMAZOLE-BETAMETHASONE 93749586781 No Longer Active Lorene Meryl Durbin FERROUS SULFATE 100 MG 1 PO daily FERROUS SULFATE 100 MG No Longer Active Lorene Meryl Durbin QUALAQUIN 324 MG CAPS 1 PO QHS prn QUININE SULFATE 74546112648 No Longer Active Lorene Meryl Durbin ROBITUSSIN A-C 10-100 MG/5ML SYRUP 1 teaspoon PO Q 4-6 hr prn ROBITUSSIN A-C 10-100 MG/5ML SYRUP 28157642228 No Longer Active Lorene Meryl Durbin BIAXIN XL PAC 500 MG TB24 2 pills at same time daily for 7 days CLARITHROMYCIN 79531846487 No Longer Active Lorene Meryl Durbin TESSALON 200 MG CAPS 1 PO TID prn cough BENZONATATE 47698711288 No Longer Active Lorene Meryl Durbin ROBITUSSIN A-C 10-100 MG/5ML SYRUP 1 teaspoon PO Q 4-6 hr prn ROBITUSSIN A-C 10-100 MG/5ML SYRUP 00867037312 No Longer Active Lorene Meryl Durbin BIAXIN XL PAC 500 MG TB24 2 pills at same time daily for 7 days CLARITHROMYCIN 58531187359 No Longer Active Lorene Meryl Durbin KEFLEX 500 MG CAP 1 PO TID for 7 days CEPHALEXIN 69972860504 No Longer Active Lorene Meryl Drubin FERROUS SULFATE 325 (65 FE) MG TABS 1 PO daily FERROUS SULFATE 70650700054 No Longer Active Lorene Meryl Durbin CINNAMON 500 MG CAPS 1 po daily CINNAMON 32304262189 No Longer Active Lorene Meryl Durbin XANAX 0.25 MG TABS 1 po q 4-6 hrs prn ALPRAZOLAM 88136479714 No Longer Active Lorene Meryl Durbin TRIAMCINOLONE ACETONIDE 0.1 % OINT Apply as directed TRIAMCINOLONE ACETONIDE 85608959962 No Longer Active Lorene Meryl Durbin KERALAC 50 % GEL as needed UREA 46257491902 No Longer Active Lorene Meryl Durbin AMITRIPTYLINE HCL 25 MG TAB 1 PO daily at night prn AMITRIPTYLINE HCL 68357585483 No Longer Active Lorene Meryl Durbin ZOCOR 5 MG TABS 1 PO QOD (on hold) SIMVASTATIN 31962632401 No Longer Active Lorene Meryl Durbin VIAGRA 50 MG TABS prn SILDENAFIL CITRATE 57372789265 No Longer Active Lorene Meryl Durbin DARVOCET-N 100 100-650 MG TABS 1 po q 6 hrs. prn pain PROPOXYPHENE N-APAP 31744886291 No Longer Active Lorene Meryl Durbin CYCLOBENZAPRINE HCL 10 MG TABS 1 po q 12 hrs. prn CYCLOBENZAPRINE HCL 01547235320 No Longer Active Lorene Meryl Durbin LORTAB 5 5-500 MG TABS 1 as needed HYDROCODONE- ACETAMINOPHEN 63907120743 No Longer Active Lorenedada Durbin ALBUTEROL 90 MCG/ACT AERS 2 puffs Q4-6hrs prn ALBUTEROL 48673383741 No Longer Active Lorenedada Durbin ROBITUSSIN A-C 10-100 MG/5ML SYRUP 5cc PO Q 4-6 hr prn ROBITUSSIN A-C 10-100 MG/5ML SYRUP 37158547158 No Longer Active Lorene Meryl Durbin ADVAIR DISKUS 100-50 MCG/DOSE MISC 1 puff BID FLUTICASONE-SALMETEROL 76244921347 No Longer Active Lorenedada Durbin AUGMENTIN 500-125 MG TABS 1 PO BID AMOXICILLIN-POT CLAVULANATE 93784468937 No Longer Active Lorenedada Durbin PLAVIX 75 MG TABS 1 po daily CLOPIDOGREL BISULFATE 44295896194 No Longer Active Lorene Meryl Durbin AMOXIL 500 MG TABS 1 PO TID AMOXICILLIN 61382905352 No Longer Active Lorene Durbin Immunizations Vaccine [...] neg Clinical Lists Update: CBC,CMP,FLP,TSH,HgA1c,Ferritin - Chemistry Estimated Glomerular Filtration Rate (calc) 38 mL/min/1.73m2 glucose, plasma fasting 115 mg/dL albumin, serum 3.9 g/dL alkaline phosphatase, serum 34 U/L urea nitrogen, blood 28 mg/dL calcium, serum 9.0 mg/dL chloride, serum 107 mmol/L cholesterol, serum 165 mg/dL cholesterol/HDL ratio, serum, percent 4.1 anion [...] mg/dL carbon dioxide, venous blood 28.0 mmol/L Clinical Lists Update: CBC,CMP,FLP,TSH,HgA1c,Ferritin - Hematology mean corpuscular volume, RBC 97 fL red blood cell distribution width 13.8 % hemoglobin, blood 12.6 g/dL platelet count 132 10*3/mm3 erythrocyte (RBC) count 4.10 10*6/mm3 leukocyte count, blood 7.5 10*3/mm3 hematocrit, blood 40 % Clinical Lists Update: CBC,CMP,FLP.UA - Chemistry triglyceride, [...] % Clinical Lists Update: CBC,CMP,FLP.UA - Urinalysis nitrite, urine, semiquantitative neg pH, urine, semiquantitative 7.0 bilirubin, urine neg glucose, urine, semiquantitative neg protein, urine, semiquantitative (dipstick) neg blood in urine (hemoglobin) by dipstick trace mucus on urinalysis none epithelial cells, urine 0-5 /[LPF] hyaline casts, urine none /[LPF] bacteria, urine microscopy none RBC urine by microscopy none WBC urine on microscopy none {Cells}/[HPF] appearance, urine Clear Yellow urobilinogen, urine, semiquantitative (dipstick) 0.2 specific gravity, urine 1.015 ketones, urine, by test strip neg Clinical Lists Update: CMP - Chemistry Estimated [...] % Encounters Code Encounter Date Provider Facility CPT-35931 Ofc Vst, Est Level III 16:04:23 CDT Lorenedada Durbin, DO, FACP CPT-66688 Ofc Vst, Est Level III 19:00:13 [employer] Lorene Durbin, DO, FACP CPT-86024 Ofc Vst, Est Level III 21:20:47 CDT Lorenedada Durbin, DO, FACP CPT-14878 Ofc Vst, Est Level III 20:32:44 [employer] Lorene Durbin, DO, FACP CPT-80896 Ofc Vst, Est Level III 14:43:31 [employer] Lorene Durbin, DO, FACP CPT-72692 Ofc Vst, Est Level III 20:01:57 [employer] Lorene Durbin, DO, FACP CPT-20551 Ofc Vst, Est Level III 16:57:33 CDT Lorene Durbin, DO, FACP CPT-55742 Ofc Vst, Est Level III 14:43:50 CDT Lorene Durbin, DO, FACP CPT-23929 Ofc Vst, Est Level III 15:02:07 CDT Lorene Meryl Durbin Lorene S Durbin, DO, FACP CPT-11679 Ofc Vst, Est Level III 14:44:46 CDT Lorene Meryl Sorensen Durbin, DO, FACP CPT-25226 Ofc Vst, Est Level IV 16:13:39 CDT Lorene Meryl Sorensen Durbin, DO, FACP CPT-74294 Ofc Vst, Est Level III 11:48:41 CDT Lorene Meryl Sorensen Durbin, DO, FACP CPT-07852 Ofc Vst, Est Level III 15:46:15 CDT Lorene Meryl Sorensen Ramakrishna, DO, FACP CPT-14883 Ofc Vst, Est Level IV 15:57:50 CDT Lorene Meryl Sorensen Ramakrishna, DO, FACP CPT-04935 Ofc Vst, Est Level III 16:05:36 [employer] Lorene Sorensen Ramakrishna, DO, FACP CPT-26204 Ofc Vst, Est Level IV 15:52:15 [employer] Lorene Sorensen Ramakrishna, DO, FACP CPT-42318 Ofc Vst, Est Level III 15:08:06 CDT Lorenedada Sorensen Ramakrishna, DO, FACP CPT-08542 Ofc Vst, Est Level IV 15:06:29 CDT Lorene Meryl Sorensen Ramakrishna, DO, FACP CPT-57600 Ofc Vst, Est Level IV 13:29:16 CDT Lorene Meryl Sorensen Ramakrishna, DO, FACP CPT-28682 Ofc Vst, Est Level V 13:50:55 [employer] Lorene Sorensen Ramakrishna, DO, FACP CPT-06512 Ofc Vst, Est Level IV 11:10:14 [employer] Lorene Sorensen Ramakrishna, DO, FACP CPT-75728 Ofc Vst, Est Level III 15:28:22 CDT Lorenedada Sorensen Ramakrishna, DO, FACP CPT-11723 Ofc Vst, New Level IV 14:17:27 CDT Lorene Meryl Sorensen Durbin, DO, FACP CPT-19100 Ofc Vst, New Level II 14:17:27 CDT Lorene Meryl Sorensen Durbin, DO, FACP CPT-81885 Ofc Vst, Est Level IV 10:59:16 CDT Lorene Meryl Sorensen Ramakrishna, DO, FACP CPT-14412 Ofc Vst, Est Level II 16:12:29 CDT Lorenedada Sorensen Ramakrishna, DO, FACP CPT-06804 Ofc Vst, Est Level IV 10:53:48 CDT Lorene Meryl Sorensen Ramakrishna, DO, FACP CPT-79604 Office Consult, Level III 11:11:19 [employer] Lorene Sorensen Ramakrishna, DO, FACP CPT-57559 Ofc Vst, Est Level IV 11:12:23 CDT Lorenedada Sorensen Ramakrishna, DO, FACP CPT-12666 Ofc Vst, Est Level IV 11:46:11 CDT Lorenedada Sorensen Ramakrishna, DO, FACP CPT-43179 Ofc Vst, Est Level IV 15:36:14 CDT Lorene Meryl Sorensen Ramakrishna, DO, FACP CPT-34369 Ofc Vst, Est Level IV 11:36:09 [employer] Lorene Sorensen Ramakrishna, DO, FACP CPT-05968 Ofc Vst, Est Level IV 16:28:10 CDT Lorene Meryl Sorensen Ramakrishna, DO, FACP CPT-62026 Ofc Vst, Est Level IV 15:52:30 CDT Lorenedada Sorensen Ramakrishna, DO, FACP CPT-55517 Ofc Vst, Est Level III 11:48:57 CDT Lorene Meryl Sorensen Ramakrishna, DO, FACP CPT-55612 Ofc Vst, Est Level IV 09:15:20 [employer] Lorene Sorensen Ramakrishna, DO, FACP CPT-95300 Ofc Vst, Est Level IV 16:43:12 [employer] Lorene Meryl Sorensen Ramakrishna, DO, FACP CPT-98673 Ofc Vst, Est Level III 14:52:39 CDT Lorene Meryl Sorensen Ramakrishna, DO, FACP CPT-36234 Ofc Vst, Est Level IV 11:27:37 CDT Lorene Meryl Sorensen Ramakrishna, DO, FACP CPT-36913 Ofc Vst, Est Level III 09:53:01 [employer] Lorene Meryl Sorensen Ramakrishna, DO, FACP CPT-41534 Ofc Vst, Est Level IV 09:49:25 CDT Lorene Meryl Sorensen Ramakrishna, DO, FACP CPT-58210 Ofc Vst, Est Level IV 11:33:29 CDT Lorenedada Sorensen Ramakrishna, DO, FACP CPT-57679 Ofc Vst, Est Level IV 14:11:50 [employer] Lorene Ramireze aRmakrishna [facility] [place] CPT-31632 Ofc Vst, Est Level IV 17:26:08 [employer] Lorene Durbin [facility] [place] CPT-10295 Ofc Vst, Est Level IV 10:40:42 [employer] Lorene Durbin [facility] [place] CPT-08669 Ofc Vst, Est Level IV 15:05:22 CDT Lorene Meryl Durbin [facility] [place] CPT-17686 Ofc Vst, Est Level IV 14:42:32 CDT Lorene Durbin [facility] [place] CPT-32373 Ofc Vst, Est Level III 16:05:07 CDT Lorene Durbin [facility] [place] CPT-90860 Ofc Vst, Est Level V 17:24:06 CDT Lorene Durbin [facility] [place] CPT-16179 Ofc Vst, Est Level IV 16:02:46 CDT Lorene Meryl Durbin [facility] [place] CPT-85700 Ofc Vst, Est Level III 12:50:41 [employer] Lorene Durbin [facility] [place] CPT-04824 Ofc Vst, Est Level II 12:09:58 [employer] Lorene Durbin [facility] [place] CPT-35832 Ofc Vst, Est Level IV 09:31:48 [employer] Lorene Durbin [facility] [place] CPT-48940 Ofc Vst, Est Level III 10:36:21 [employer] Lorene Durbin [facility] [place] CPT-57780 Ofc Vst, Est Level IV 15:48:05 CDT Lorene Durbin [facility] [place] CPT-32357 Ofc Vst, Est Level III 11:58:31 CDT Lorene Durbin [facility] [place] CPT-24185 Ofc Vst, Est Level IV 18:14:00 CDT Lorene Durbin [facility] [place] CPT-41074 Ofc Vst, New Level III 19:15:23 [employer] Lorene Durbin [facility] [place] Procedures Code Procedure Name Date Entry Date Standard Description CPT-G0439 Medicare Annual Wellness Visit 14:14:39 CDT CPT-G8445 E-Prescribing Not sent due to no medication given 21:20: 47 CDT CPT-G8445 E-Prescribing Not sent due to no medication given 20:32: 44 [employer] [employer] CPT-G8445 E-Prescribing Not sent due to no medication given 14:43: 31 [employer] CPT-G8445 E-Prescribing Not sent due to no medication given 20:01: 57 [employer] CPT-G8445 E-Prescribing Not sent due to no medication given 16:57: 33 CDT CPT-G8445 E-Prescribing Not sent due to no medication given 14:43: 50 CDT CPT-G8445 E-Prescribing Not sent due to no medication given 15:02: 07 CDT CPT-G8443 E-Prescribing Medication Sent 14:44:46 CDT CPT-G8443 E-Prescribing Medication Sent 16:13:39 CDT CPT-68496 Biopsy, skin/subcut/mucous membrane; sngl lsn 15:46:15 CDT CPT-G8445 E-Prescribing Not sent due to no medication given 14:23: 32 CDT CPT-G0438 Medicare Annual Wellness Visit Initial 14:23:32 CDT CPT-G8445 E-Prescribing Not sent due to no medication given 15:57: 50 CDT CPT-G8443 E-Prescribing Medication Sent 15:52:15 [employer] [employer] CPT-G8443 E-Prescribing Medication Sent 15:08:06 CDT CPT-21823 Injection, Pneumovax 16:28:10 CDT CPT-G8443 E-Prescribing Medication Sent 15:52:30 CDT CPT-22907 EKG w/ Interpretation 17:24:06 CDT CPT-42167 EKG w/ Interpretation 11:58:31 CDT
--- OUTSIDE RECORDS SUMMARY | 2017-12-16 05:13 | XMS REPORT | Clinical Summary ---
Author Author User, [employer] Lorene Durbin DO, FACP Address Unknown [...] Instruction BISACODYL LAXATIVE 10 MG SUPP 1 NE QD PRN constipation BISACODYL [id number] No Longer Active Lorene Durbin PREDNISONE 2.5 MG TABS 1 PO DAILY PREDNISONE 28855908422 Active Lorenedada Durbin COREG 6.25 MG TABS 1 PO BID CARVEDILOL 99533792700 Active Lorenedada Durbin BENADRYL 25 MG CAP 1 PO TID prn DIPHENHYDRAMINE HCL 83960594342 No Longer Active Lorenedada Durbin LACTULOSE SOLN 30 ML PO BID PRN Constipation LACTULOSE SOLN 43837076294 No Longer Active Lorene Durbin LASIX 40 MG TAB 1 PO MWF FUROSEMIDE 47954804232 No Longer Active Lorene Durbin VITAMIN D 1000 UNIT TABS 1 PO Daily CHOLECALCIFEROL 27301422581 Active Lorene Durbin ZOCOR 20 MG TABS 1 PO DAILY SIMVASTATIN 66290994368 Active Elizabeth Dixon FINASTERIDE 5 MG TABS 1 PO DAILY FINASTERIDE 58734091498 Active Lorene Durbin NAMENDA 10 MG TABS 1 PO BID MEMANTINE HCL 83442067231 Active Elizabeth Dixon KENALOG 0.1 % CREA apply to affected areas BID TRIAMCINOLONE ACETONIDE No Longer Active Lorene Durbin DILANTIN 100 MG CAP 1 PO at 7am and 2 pm and 2 PO at HS PHENYTOIN SODIUM EXTENDED 37661890963 No Longer Active Lorene Durbin PREDNISONE 20 MG TAB 1 PO daily for 7 days then resume 5mg dosing as previous PREDNISONE 15665314395 No Longer Active Lorene Meryl Durbin AUGMENTIN 500-125 MG TAB 1 PO BID AMOXICILLIN-POT CLAVULANATE 36050016735 No Longer Active Lorene Meryl Durbin OCUFLOX 0.3 % SOLN 2 drops in right ear TID for 7 days OFLOXACIN 31285506082 No Longer Active Lorene Meryl Durbin PREDNISONE 20 MG TAB 1 PO daily for 7 days PREDNISONE 77056259869 No Longer Active Lorene Meryl Durbin KENALOG 0.1 % CREA apply to affected areas BID TRIAMCINOLONE ACETONIDE No Longer Active Lorene Meryl Durbin ATARAX 25 MG TAB 1 PO Q6hrs prn itching HYDROXYZINE HCL No Longer Active Lorene Meryl Durbin DETROL LA 4 MG CP24 1 PO daily TOLTERODINE TARTRATE 40785207633 No Longer Active Lorene Meryl Durbin FINASTERIDE 5 MG TABS 1 PO BID FINASTERIDE 45390599417 No Longer Active Lorenedada Durbin BACTRIM DS 800-160 MG TAB 1 PO MWF TRIMETHOPRIM- SULFAMETHOXAZOLE 16060589683 No Longer Active Lorene Meryl Durbin NYSTATIN POWD Apply Topically to groin BID for gaulding NYSTATIN [id number] No Longer Active Lorene Meryl Durbin TERBINAFINE HCL 1 % CREA Apply to affected area BID TERBINAFINE HCL 89677160049 No Longer Active Lorene Meryl Durbin CALTRATE 600 PLUS-VIT D 600-200 MG-IU TABS 1 PO BID CALCIUM-VITAMIN D Active Elizabeth Dixon VALTREX 1 GM TAB 1 PO BID VALACYCLOVIR HCL 62905214312 No Longer Active Lorene Meryl Durbin TESSALON 200 MG CAPS 1 PO TID prn cough BENZONATATE 28886365163 No Longer Active Elizabethjenn Dixon PREDNISONE 10 MG TABS 1 PO QD PREDNISONE 46362806814 No Longer Active Lorene Durbin PAXIL 20 MG TAB 1 PO DAILY PAROXETINE HCL 97348149916 Active Elizabeth Dixon TESSALON 200 MG CAPS 1 PO TID prn cough BENZONATATE 63260098075 No Longer Active Lorenedada Durbin FLOMAX 0.4 MG CAPS 1 PO QD for urinary retention TAMSULOSIN HCL 25173733694 Active Elizabeth Lizarragatis OMEPRAZOLE 40 MG CPDR 1 PO QD OMEPRAZOLE 98896509856 Active Elizabeth Lizarragatis FOLIC ACID 1 MG TABS 1 PO QD FOLIC ACID 12375404646 Active Elizabeth Dixon FERROUS SULFATE 325 (65 FE) MG TABS 1 PO BID FERROUS SULFATE 85345433074 Active Elizabeth Dixon COLACE 100 MG CAPS 1 PO BID prevent constipation DOCUSATE SODIUM 43573813899 Active Elizabeth Dixon ACETAMINOPHEN 325 MG TABS 2 PO Q 4hrs PRN pain or fever ACETAMINOPHEN 75483321440 Active Lorenedada Durbin IMURAN 50 MG TABS 3 po daily AZATHIOPRINE 89526950472 No Longer Active Lorenedada Durbin TOVIAZ 4 MG [id number] 1 po daily FESOTERODINE FUMARATE 35782494302 No Longer Active Lorenedada Durbin COREG 12.5 MG TABS 1 po bid CARVEDILOL 61222931720 No Longer Active Lorene Durbin WAVESENSE PRESTO TEST STRP Check BS Daily DX: DIABETES GLUCOSE BLOOD 23779396606 No Longer Active Lorene Durbin OMEPRAZOLE 40 MG CPDR 1 PO Daily OMEPRAZOLE 88857689166 No Longer Active Lorenedada Durbin FLOMAX 0.4 MG CAPS 1 PO Daily TAMSULOSIN HCL 53028503437 No Longer Active Lorene Meryl Durbin MEPRON 750 MG/5ML SUSP 5 ml PO BID ATOVAQUONE 51928245728 No Longer Active Lorene Meryl Durbin PREDNISONE 5 MG TABS 2 po daily PREDNISONE 42466991440 No Longer Active Lorene Meryl Durbin TERAZOSIN HCL 2 MG CAPS 1 PO qhs TERAZOSIN HCL 69977344389 No Longer Active Lorene Meryl Durbin VITAMIN D 1000 UNIT TABS 1 PO Daily CHOLECALCIFEROL 59338462508 No Longer Active Lorene Meryl Durbin PEPCID 20 MG TAB 1 PO daily FAMOTIDINE 64184650586 No Longer Active Lorene Meryl Durbin VITAMIN B-12 100 MCG TABS 1 po daily CYANOCOBALAMIN 96380775728 No Longer Active Lorene Meryl Durbin IRON 325 (65 FE) MG TABS 1 PO daily FERROUS SULFATE 67842200786 No Longer Active Lorene Meryl Durbin CALCIUM 600 1500 MG TABS 1 PO QAM and 2 PO QHS CALCIUM CARBONATE 04040524609 No Longer Active Lorene Meryl Durbin MULTIVITAMINS TABS 1 po daily MULTIPLE VITAMIN 79687373299 No Longer Active Lorene Meryl Durbin FISH OIL 1000 MG CAPS 1 po daily OMEGA-3 FATTY ACIDS 43931220724 No Longer Active Lorene Meryl Durbin ASPIRIN 81 MG TAB 1 PO QD ASPIRIN 29531353073 No Longer Active Lorene Meryl Durbin NORVASC 5 MG TAB 1 PO Daily AMLODIPINE BESYLATE 95994412153 No Longer Active Lorene Meryl Durbin CLOBETASOL PROPIONATE 0.05 % CREA Apply small amount to affected areas on arms BID CLOBETASOL PROPIONATE 88084591682 No Longer Active Lorene Meryl Durbin LOTRISONE 0.05-1 % CREAM Apply a small amount to affected area on back BID CLOTRIMAZOLE-BETAMETHASONE 92548191286 No Longer Active Lorene Meryl Durbin CYCLOPHOSPHAMIDE 25 MG TABS take 5 tablets once daily CYCLOPHOSPHAMIDE 25005933702 No Longer Active Lorene Meryl Durbin PERCOCET 5-325 MG TAB 1 PO Q 6 hours OXYCODONE- ACETAMINOPHEN 36066524482 No Longer Active Lorene Meryl Durbin VALTREX 1 GM TAB 1 PO BID VALACYCLOVIR HCL 85566397698 No Longer Active Lorene Meryl Durbin ACCUPRIL 10 MG TABS 1 po daily QUINAPRIL HCL 51717124429 No Longer Active Lorene eMryl Durbin COZAAR 25 MG TAB 1 PO daily LOSARTAN POTASSIUM 52170989347 No Longer Active Elizabeth Dixon MAGNESIUM OXIDE 400 MG CAPS 1 PO daily MAGNESIUM OXIDE 46145574991 No Longer Active Lorene Meryl Durbin LOTRISONE 0.05-1 % CREAM Apply to affected areas twice daily prn CLOTRIMAZOLE-BETAMETHASONE 72705973338 No Longer Active Lorenedada Durbin FERROUS SULFATE 100 MG 1 PO daily FERROUS SULFATE 100 MG No Longer Active Lorene Meryl Durbin QUALAQUIN 324 MG CAPS 1 PO QHS prn QUININE SULFATE 08535555154 No Longer Active Lorene Meryl Durbin ROBITUSSIN A-C 10-100 MG/5ML SYRUP 1 teaspoon PO Q 4-6 hr prn ROBITUSSIN A-C 10-100 MG/5ML SYRUP 29511861024 No Longer Active Lorene Meryl Durbin BIAXIN XL PAC 500 MG TB24 2 pills at same time daily for 7 days CLARITHROMYCIN 49320788185 No Longer Active Lorene Meryl Durbin TESSALON 200 MG CAPS 1 PO TID prn cough BENZONATATE 74942364184 No Longer Active Lorene Meryl Durbin ROBITUSSIN A-C 10-100 MG/5ML SYRUP 1 teaspoon PO Q 4-6 hr prn ROBITUSSIN A-C 10-100 MG/5ML SYRUP 05908152481 No Longer Active Lorene Meryl Durbin BIAXIN XL PAC 500 MG TB24 2 pills at same time daily for 7 days CLARITHROMYCIN 24763598139 No Longer Active Lorene Meryl Durbin KEFLEX 500 MG CAP 1 PO TID for 7 days CEPHALEXIN 07805965671 No Longer Active Lorene Meryl Durbin FERROUS SULFATE 325 (65 FE) MG TABS 1 PO daily FERROUS SULFATE 14335282142 No Longer Active Lorene Meryl Durbin CINNAMON 500 MG CAPS 1 po daily CINNAMON 12861442132 No Longer Active Lorene Meryl Durbin XANAX 0.25 MG TABS 1 po q 4-6 hrs prn ALPRAZOLAM 56728595863 No Longer Active Lorene Meryl Durbin TRIAMCINOLONE ACETONIDE 0.1 % OINT Apply as directed TRIAMCINOLONE ACETONIDE 45514535350 No Longer Active Lorene Meryl Durbin KERALAC 50 % GEL as needed UREA 58620378301 No Longer Active Lorene Meryl Durbin AMITRIPTYLINE HCL 25 MG TAB 1 PO daily at night prn AMITRIPTYLINE HCL 90280114358 No Longer Active Lorene Meryl Durbin ZOCOR 5 MG TABS 1 PO QOD (on hold) SIMVASTATIN 31812675089 No Longer Active Lorene Meryl Durbin VIAGRA 50 MG TABS prn SILDENAFIL CITRATE 08541567277 No Longer Active Lorene Meryl Durbin DARVOCET-N 100 100-650 MG TABS 1 po q 6 hrs. prn pain PROPOXYPHENE N-APAP 69026773202 No Longer Active Lorenedada Durbin CYCLOBENZAPRINE HCL 10 MG TABS 1 po q 12 hrs. prn CYCLOBENZAPRINE HCL 00723520011 No Longer Active Lorene Meryl Durbin LORTAB 5 5-500 MG TABS 1 as needed HYDROCODONE- ACETAMINOPHEN 94805599587 No Longer Active Lorene Meryl Durbin ALBUTEROL 90 MCG/ACT AERS 2 puffs Q4-6hrs prn ALBUTEROL 88005464042 No Longer Active Lorene Meryl Durbin ROBITUSSIN A-C 10-100 MG/5ML SYRUP 5cc PO Q 4-6 hr prn ROBITUSSIN A-C 10-100 MG/5ML SYRUP 04561515452 No Longer Active Lorenedada Durbin ADVAIR DISKUS 100-50 MCG/DOSE MISC 1 puff BID FLUTICASONE-SALMETEROL 87889672642 No Longer Active Lorene Meryl Durbin AUGMENTIN 500-125 MG TABS 1 PO BID AMOXICILLIN-POT CLAVULANATE 07330614454 No Longer Active Lorene Meryl Durbin PLAVIX 75 MG TABS 1 po daily CLOPIDOGREL BISULFATE 06302634525 No Longer Active Lorene Meryl Durbin AMOXIL 500 MG TABS 1 PO TID AMOXICILLIN 24726329420 No Longer Active Lorenedada Durbin Immunizations Vaccine [...] 10*6/mm3 Encounters Code Encounter Date Provider Facility CPT-38458 Ofc Vst, Est Level III 16:04:23 CDT Lorene MerylJamison Levinener, DO, FACP CPT-13105 Ofc Vst, Est Level III 19:00:13 [employer]NATIONAL MARKETING COORDINATOR Lorenedada Durbin, DO, FACP CPT-22483 Ofc Vst, Est Level III 21:20:47 CDT Lorene Meryl Durbin, DO, FACP CPT-47608 Ofc Vst, Est Level III 20:32:44 INTERNATIONAL MARKETING COORDINATOR Lorene Durbin, DO, FACP CPT-34963 Ofc Vst, Est Level III 14:43:31 INTERNATIONAL MARKETING COORDINATOR Lorene Durbin, DO, FACP CPT-89136 Ofc Vst, Est Level III 20:01:57 INTERNATIONAL MARKETING COORDINATOR Lorene Durbin, DO, FACP CPT-32989 Ofc Vst, Est Level III 16:57:33 CDT Lorene Durbin, DO, FACP CPT-01686 Ofc Vst, Est Level III 14:43:50 CDT Lorenedada Durbin, DO, FACP CPT-09669 Ofc Vst, Est Level III 15:02:07 CDT Lorenedada Durbin, DO, FACP CPT-56233 Ofc Vst, Est Level III 14:44:46 CDT Lorene Durbin, DO, FACP CPT-49068 Ofc Vst, Est Level IV 16:13:39 CDT Lorenedada Durbin, DO, FACP CPT-54681 Ofc Vst, Est Level III 11:48:41 CDT Lorene Meryl Sorensen Durbin, DO, FACP CPT-57257 Ofc Vst, Est Level III 15:46:15 CDT Lorene Meryl Pedersoni S Durbin, DO, FACP CPT-13507 Ofc Vst, Est Level IV 15:57:50 CDT Lorene Meryl Paulson S Durbin, DO, FACP CPT-20725 Ofc Vst, Est Level III 16:05:36 INTERNATIONAL MARKETING COORDINATOR Lorene Meryl Pedersoni S Durbin, DO, FACP CPT-42339 Ofc Vst, Est Level IV 15:52:15 INTERNATIONAL MARKETING COORDINATOR Lorene Meryl Pedersoni S Durbin, DO, FACP CPT-42085 Ofc Vst, Est Level III 15:08:06 CDT Lorene Meryl Sorensen Durbin, DO, FACP CPT-98719 Ofc Vst, Est Level IV 15:06:29 CDT Lorene Meryl Pedersoni S Durbin, DO, FACP CPT-73156 Ofc Vst, Est Level IV 13:29:16 CDT Lorene Meryl Paulson S Durbin, DO, FACP CPT-12963 Ofc Vst, Est Level V 13:50:55 INTERNATIONAL MARKETING COORDINATOR Lorene Meryl Paulson S Durbin, DO, FACP CPT-69724 Ofc Vst, Est Level IV 11:10:14 INTERNATIONAL MARKETING COORDINATOR Lorene Meryl Paulson S Durbin, DO, FACP CPT-92975 Ofc Vst, Est Level III 15:28:22 CDT Lorene Meryl Paulson S Durbin, DO, FACP CPT-10451 Ofc Vst, New Level IV 14:17:27 CDT Lorene Meryl Paulson S Ramakrishna, DO, FACP CPT-50787 Ofc Vst, New Level II 14:17:27 CDT Lorenedada Sorensen Durbin, DO, FACP CPT-43754 Ofc Vst, Est Level IV 10:59:16 CDT Lorene Meryl Sorensen Durbin, DO, FACP CPT-21658 Ofc Vst, Est Level II 16:12:29 CDT Lorene Meryl Sorensen Durbin, DO, FACP CPT-30684 Ofc Vst, Est Level IV 10:53:48 CDT Lorene Meryl Sorensen Ramakrishna, DO, FACP CPT-00684 Office Consult, Level III 11:11:19 INTERNATIONAL MARKETING COORDINATOR Lorene Sorensen Ramakrishna, DO, FACP CPT-95735 Ofc Vst, Est Level IV 11:12:23 CDT Lorenedada Sorensen Ramakrishna, DO, FACP CPT-46550 Ofc Vst, Est Level IV 11:46:11 CDT Lorenedada Sorensen Ramakrishna, DO, FACP CPT-88105 Ofc Vst, Est Level IV 15:36:14 CDT Lorene Meryl Sorensen Durbin, DO, FACP CPT-42709 Ofc Vst, Est Level IV 11:36:09 INTERNATIONAL MARKETING COORDINATOR Lorene Sorensen Ramakrishna, DO, FACP CPT-90134 Ofc Vst, Est Level IV 16:28:10 CDT Lorene Meryl Sorensen Durbin, DO, FACP CPT-19637 Ofc Vst, Est Level IV 15:52:30 CDT Lorene Meryl Sorensen Durbin, DO, FACP CPT-89812 Ofc Vst, Est Level III 11:48:57 CDT Lorene Meryl Sorensen Durbin, DO, FACP CPT-24983 Ofc Vst, Est Level IV 09:15:20 INTERNATIONAL MARKETING COORDINATOR Lorene Meryl Sorensen Ramakrishna, DO, FACP CPT-68436 Ofc Vst, Est Level IV 16:43:12 INTERNATIONAL MARKETING COORDINATOR Lorenedada Sheth Ramakrishna Lorene Edu Ramakrishna, DO, FACP CPT-61918 Ofc Vst, Est Level III 14:52:39 CDT Lorene Sheth Durbin Lorene Edu Rmaakrishna, DO, FACP CPT-44004 Ofc Vst, Est Level IV 11:27:37 CDT Lorene Meryl Levinener Lorene Sorensen Ramakrishna, DO, FACP CPT-19810 Ofc Vst, Est Level III 09:53:01 INTERNATIONAL MARKETING COORDINATOR Lorenedada Sheth Ramakrishna Durbin, DO, FACP CPT-04820 Ofc Vst, Est Level IV 09:49:25 CDT Lorenedada Sheth Ramakrisnha Pauslon Edu Ramakrishna, DO, FACP CPT-99217 Ofc Vst, Est Level IV 11:33:29 CDT Lorene Meryl Durbin Lorene Sorensen Ramakrishna, DO, FACP CPT-24164 Ofc Vst, Est Level IV 14:11:50 INTERNATIONAL MARKETING COORDINATOR Lorene Durbin [facility] CPT-02634 Ofc Vst, Est Level IV 17:26:08 INTERNATIONAL MARKETING COORDINATOR Lorene Durbin [facility] CPT-33271 Ofc Vst, Est Level IV 10:40:42 INTERNATIONAL MARKETING COORDINATOR Lorene Durbin [facility] CPT-33703 Ofc Vst, Est Level IV 15:05:22 CDT Lorene Meryl Durbin [facility] CPT-85994 Ofc Vst, Est Level IV 14:42:32 CDT Lorenedada Durbin [facility] CPT-96109 Ofc Vst, Est Level III 16:05:07 CDT Lorene Durbin [facility] CPT-04336 Ofc Vst, Est Level V 17:24:06 CDT Lorene Meryl Durbin [facility] CPT-13030 Ofc Vst, Est Level IV 16:02:46 CDT Lorene Meryl Ramakrishna [facility] CPT-11412 Ofc Vst, Est Level III 12:50:41 INTERNATIONAL MARKETING COORDINATOR Lorene Meryl Ramakrishna [facility] CPT-52089 Ofc Vst, Est Level II 12:09:58 INTERNATIONAL MARKETING COORDINATOR Lorene Merylgladys Durbin [facility] CPT-22066 Ofc Vst, Est Level IV 09:31:48 INTERNATIONAL MARKETING COORDINATOR Olrenedada Durbin [facility] CPT-93142 Ofc Vst, Est Level III 10:36:21 INTERNATIONAL MARKETING COORDINATOR Lorene Meryllgadys Durbin [facility] CPT-26105 Ofc Vst, Est Level IV 15:48:05 CDT Lorene Meryl Durbin [facility] CPT-95597 Ofc Vst, Est Level III 11:58:31 CDT Lorene Merylgladys Durbin [facility] CPT-82268 Ofc Vst, Est Level IV 18:14:00 CDT Lorene Meryl Ramakrishna [facility] CPT-47342 Ofc Vst, New Level III 19:15:23 INTERNATIONAL MARKETING COORDINATOR Lorenedada Durbin [facility] Procedures Code Procedure Name Date Entry Date Standard Description CPT-G0439 Medicare Annual Wellness Visit 14:14:39 CDT CPT-G8445 E-Prescribing Not sent due to no medication given 21:20: 47 CDT CPT-G8445 E-Prescribing Not sent due to no medication given 20:32: 44 INTERNATIONAL MARKETING COORDINATOR CPT-G8445 E-Prescribing Not sent due to no medication given 14:43: 31 INTERNATIONAL MARKETING COORDINATOR CPT-G8445 E-Prescribing Not sent due to no medication given 20:01: 57 INTERNATIONAL MARKETING COORDINATOR CPT-G8445 E-Prescribing Not sent due to no medication given 16:57: 33 CDT CPT-G8445 E-Prescribing Not sent due to no medication given 14:43: 50 CDT CPT-G8445 E-Prescribing Not sent due to no medication given 15:02: 07 CDT CPT-G8443 E-Prescribing Medication Sent 14:44:46 CDT CPT-G8443 E-Prescribing Medication Sent 16:13:39 CDT CPT-91361 Biopsy, skin/subcut/mucous membrane; sngl lsn 15:46:15 CDT CPT-G8445 E-Prescribing Not sent due to no medication given 14:23: 32 CDT CPT-G0438 Medicare Annual Wellness Visit Initial 14:23:32 CDT CPT-G8445 E-Prescribing Not sent due to no medication given 15:57: 50 CDT CPT-G8443 E-Prescribing Medication Sent 15:52:15 INTERNATIONAL MARKETING COORDINATOR CPT-G8443 E-Prescribing Medication Sent 15:08:06 CDT CPT-21117 Injection, Pneumovax 16:28:10 CDT CPT-G8443 E-Prescribing Medication Sent 15:52:30 CDT CPT-84007 EKG w/ Interpretation 17:24:06 CDT CPT-96190 EKG w/ Interpretation 11:58:31 CDT
--- OUTSIDE RECORDS SUMMARY | 2017-12-16 05:15 | XMS REPORT | Clinical Summary ---
Author Author User, [employer] Organization Lorene Durbin DO, FACP Address Unknown [...] Instruction BISACODYL LAXATIVE 10 MG SUPP 1 NV QD PRN constipation BISACODYL 78132661501 No Longer Active Lorenedada Durbin PREDNISONE 2.5 MG TABS 1 PO DAILY PREDNISONE 18244563984 Active Lorenedada Durbin COREG 6.25 MG TABS 1 PO BID CARVEDILOL 79865900451 Active Lorenedada Durbin BENADRYL 25 MG CAP 1 PO TID prn DIPHENHYDRAMINE HCL 82131901626 No Longer Active Lorenedada Durbin LACTULOSE SOLN 30 ML PO BID PRN Constipation LACTULOSE SOLN 84248905614 No Longer Active Lorene Durbin LASIX 40 MG TAB 1 PO MWF FUROSEMIDE 64145270998 No Longer Active Lorene Durbin VITAMIN D 1000 UNIT TABS 1 PO Daily CHOLECALCIFEROL 73709391491 Active Lorene Durbin ZOCOR 20 MG TABS 1 PO DAILY SIMVASTATIN 71520784494 Active Elizabeth Dixon FINASTERIDE 5 MG TABS 1 PO DAILY FINASTERIDE 13143552064 Active Lorene Durbin NAMENDA 10 MG TABS 1 PO BID MEMANTINE HCL 39907011106 Active Elizabeth Dixon KENALOG 0.1 % CREA apply to affected areas BID TRIAMCINOLONE ACETONIDE No Longer Active Lorene Durbin DILANTIN 100 MG CAP 1 PO at 7am and 2 pm and 2 PO at HS PHENYTOIN SODIUM EXTENDED 03076359942 No Longer Active Lorene Durbin PREDNISONE 20 MG TAB 1 PO daily for 7 days then resume 5mg dosing as previous PREDNISONE 63491559390 No Longer Active Lorene Meryl Durbin AUGMENTIN 500-125 MG TAB 1 PO BID AMOXICILLIN-POT CLAVULANATE 08663540597 No Longer Active Lorene Meryl Durbin OCUFLOX 0.3 % SOLN 2 drops in right ear TID for 7 days OFLOXACIN 34420378154 No Longer Active Lorene Meryl Durbin PREDNISONE 20 MG TAB 1 PO daily for 7 days PREDNISONE 67446174683 No Longer Active Lorene Meryl Durbin KENALOG 0.1 % CREA apply to affected areas BID TRIAMCINOLONE ACETONIDE No Longer Active Lorene Meryl Durbin ATARAX 25 MG TAB 1 PO Q6hrs prn itching HYDROXYZINE HCL No Longer Active Lorene Meryl Durbin DETROL LA 4 MG CP24 1 PO daily TOLTERODINE TARTRATE 90804264077 No Longer Active Lorene Meryl Durbin FINASTERIDE 5 MG TABS 1 PO BID FINASTERIDE 25175857873 No Longer Active Lorene Meryl Durbin BACTRIM DS 800-160 MG TAB 1 PO MWF TRIMETHOPRIM- SULFAMETHOXAZOLE 53325238724 No Longer Active Lorene Meryl Durbin NYSTATIN POWD Apply Topically to groin BID for gaulding NYSTATIN 68238071931 No Longer Active Lorene Meryl Durbin TERBINAFINE HCL 1 % CREA Apply to affected area BID TERBINAFINE HCL 83638674646 No Longer Active Lorene Meryl Durbin CALTRATE 600 PLUS-VIT D 600-200 MG-IU TABS 1 PO BID CALCIUM-VITAMIN D Active Elizabeth Dixon VALTREX 1 GM TAB 1 PO BID VALACYCLOVIR HCL 52901553247 No Longer Active Lorene Meryl Durbin TESSALON 200 MG CAPS 1 PO TID prn cough BENZONATATE 48827982193 No Longer Active Elizabeth Dixon PREDNISONE 10 MG TABS 1 PO QD PREDNISONE 80802772315 No Longer Active Lorene Durbin PAXIL 20 MG TAB 1 PO DAILY PAROXETINE HCL 69734267284 Active Elizabethjenn Dixon TESSALON 200 MG CAPS 1 PO TID prn cough BENZONATATE 31498879732 No Longer Active Lorenedada Durbin FLOMAX 0.4 MG CAPS 1 PO QD for urinary retention TAMSULOSIN HCL 48974229419 Active Elizabeth Lizarragatis OMEPRAZOLE 40 MG CPDR 1 PO QD OMEPRAZOLE 43892605112 Active Elizabeth Lizarragatis FOLIC ACID 1 MG TABS 1 PO QD FOLIC ACID 25782063634 Active Elizabeth Elcho FERROUS SULFATE 325 (65 FE) MG TABS 1 PO BID FERROUS SULFATE 00180110329 Active Elizabeth Dixon COLACE 100 MG CAPS 1 PO BID prevent constipation DOCUSATE SODIUM 77143320394 Active Elizabeth Dixon ACETAMINOPHEN 325 MG TABS 2 PO Q 4hrs PRN pain or fever ACETAMINOPHEN 29440212177 Active Lorenedada Durbin IMURAN 50 MG TABS 3 po daily AZATHIOPRINE 02987787759 No Longer Active Lorenedada Durbin TOVIAZ 4 MG [id number] 1 po daily FESOTERODINE FUMARATE 43338080958 No Longer Active Lorenedada Durbin COREG 12.5 MG TABS 1 po bid CARVEDILOL 51357242391 No Longer Active Lorene Durbin WAVESENSE PRESTO TEST STRP Check BS Daily DX: DIABETES GLUCOSE BLOOD 41931989624 No Longer Active Lorene Durbin OMEPRAZOLE 40 MG CPDR 1 PO Daily OMEPRAZOLE 58114566121 No Longer Active Lorenedada Durbin FLOMAX 0.4 MG CAPS 1 PO Daily TAMSULOSIN HCL 09964415678 No Longer Active Lorene Meryl Durbin MEPRON 750 MG/5ML SUSP 5 ml PO BID ATOVAQUONE 64417632605 No Longer Active Lorene Meryl Durbin PREDNISONE 5 MG TABS 2 po daily PREDNISONE 26375282205 No Longer Active Lorene Meryl Durbin TERAZOSIN HCL 2 MG CAPS 1 PO qhs TERAZOSIN HCL 39536362957 No Longer Active Lorene Meryl Durbin VITAMIN D 1000 UNIT TABS 1 PO Daily CHOLECALCIFEROL 64407954269 No Longer Active Lorene Meryl Durbin PEPCID 20 MG TAB 1 PO daily FAMOTIDINE 94309598811 No Longer Active Lorene Meryl Durbin VITAMIN B-12 100 MCG TABS 1 po daily CYANOCOBALAMIN 61951357982 No Longer Active Lorene Meryl Durbin IRON 325 (65 FE) MG TABS 1 PO daily FERROUS SULFATE 78418295327 No Longer Active Lorene Meryl Durbin CALCIUM 600 1500 MG TABS 1 PO QAM and 2 PO QHS CALCIUM CARBONATE 11483408876 No Longer Active Lorene Meryl Durbin MULTIVITAMINS TABS 1 po daily MULTIPLE VITAMIN 34831041500 No Longer Active Lorene Meryl Durbin FISH OIL 1000 MG CAPS 1 po daily OMEGA-3 FATTY ACIDS 55179739386 No Longer Active Lorene Meryl Durbin ASPIRIN 81 MG TAB 1 PO QD ASPIRIN 60025534736 No Longer Active Lorene Meryl Durbin NORVASC 5 MG TAB 1 PO Daily AMLODIPINE BESYLATE 56384917925 No Longer Active Lorene Meryl Durbin CLOBETASOL PROPIONATE 0.05 % CREA Apply small amount to affected areas on arms BID CLOBETASOL PROPIONATE 28586419479 No Longer Active Lorene Meryl Durbin LOTRISONE 0.05-1 % CREAM Apply a small amount to affected area on back BID CLOTRIMAZOLE-BETAMETHASONE 96006292471 No Longer Active Lorene Meryl Durbin CYCLOPHOSPHAMIDE 25 MG TABS take 5 tablets once daily CYCLOPHOSPHAMIDE 28933943759 No Longer Active Lorene Meryl Durbin PERCOCET 5-325 MG TAB 1 PO Q 6 hours OXYCODONE- ACETAMINOPHEN 64945485678 No Longer Active Lorene Meryl Durbin VALTREX 1 GM TAB 1 PO BID VALACYCLOVIR HCL 84263573590 No Longer Active Lorene Meryl Durbin ACCUPRIL 10 MG TABS 1 po daily QUINAPRIL HCL 44510315251 No Longer Active Lorene Meryl Durbin COZAAR 25 MG TAB 1 PO daily LOSARTAN POTASSIUM 35123041810 No Longer Active Elizabeth Dixon MAGNESIUM OXIDE 400 MG CAPS 1 PO daily MAGNESIUM OXIDE 72487456202 No Longer Active Lorene Meryl Durbin LOTRISONE 0.05-1 % CREAM Apply to affected areas twice daily prn CLOTRIMAZOLE-BETAMETHASONE 63047934853 No Longer Active Lorenedada Durbin FERROUS SULFATE 100 MG 1 PO daily FERROUS SULFATE 100 MG No Longer Active Lorene Meryl Durbin QUALAQUIN 324 MG CAPS 1 PO QHS prn QUININE SULFATE 80349191464 No Longer Active Lorene Meryl Durbin ROBITUSSIN A-C 10-100 MG/5ML SYRUP 1 teaspoon PO Q 4-6 hr prn ROBITUSSIN A-C 10-100 MG/5ML SYRUP 40099099233 No Longer Active Lorene Meryl Durbin BIAXIN XL PAC 500 MG TB24 2 pills at same time daily for 7 days CLARITHROMYCIN 08540549082 No Longer Active Lorene Meryl Durbin TESSALON 200 MG CAPS 1 PO TID prn cough BENZONATATE 29611652298 No Longer Active Lorene Meryl Durbin ROBITUSSIN A-C 10-100 MG/5ML SYRUP 1 teaspoon PO Q 4-6 hr prn ROBITUSSIN A-C 10-100 MG/5ML SYRUP 40992267545 No Longer Active Lorene Meryl Durbin BIAXIN XL PAC 500 MG TB24 2 pills at same time daily for 7 days CLARITHROMYCIN 54854951471 No Longer Active Lorene Meryl Durbin KEFLEX 500 MG CAP 1 PO TID for 7 days CEPHALEXIN 78738519579 No Longer Active Lorene Meryl Durbin FERROUS SULFATE 325 (65 FE) MG TABS 1 PO daily FERROUS SULFATE 93203881467 No Longer Active Lorene Meryl Durbin CINNAMON 500 MG CAPS 1 po daily CINNAMON 05911712643 No Longer Active Lorene Meryl Durbin XANAX 0.25 MG TABS 1 po q 4-6 hrs prn ALPRAZOLAM 13571422180 No Longer Active Lorene Meryl Durbin TRIAMCINOLONE ACETONIDE 0.1 % OINT Apply as directed TRIAMCINOLONE ACETONIDE 52032234996 No Longer Active Lorene Meryl Durbin KERALAC 50 % GEL as needed UREA 93321705415 No Longer Active Lorene Meryl Durbin AMITRIPTYLINE HCL 25 MG TAB 1 PO daily at night prn AMITRIPTYLINE HCL 26033832675 No Longer Active Lorene Meryl Durbin ZOCOR 5 MG TABS 1 PO QOD (on hold) SIMVASTATIN 97220201900 No Longer Active Lorene Meryl Durbin VIAGRA 50 MG TABS prn SILDENAFIL CITRATE 16421883909 No Longer Active Lorene Meryl Durbin DARVOCET-N 100 100-650 MG TABS 1 po q 6 hrs. prn pain PROPOXYPHENE N-APAP 20285701921 No Longer Active Lorene Meryl Durbin CYCLOBENZAPRINE HCL 10 MG TABS 1 po q 12 hrs. prn CYCLOBENZAPRINE HCL 37595149158 No Longer Active Lorene Meryl Durbin LORTAB 5 5-500 MG TABS 1 as needed HYDROCODONE- ACETAMINOPHEN 14165609379 No Longer Active Lorene Meryl Durbin ALBUTEROL 90 MCG/ACT AERS 2 puffs Q4-6hrs prn ALBUTEROL 05263724201 No Longer Active Lorene Meryl Durbin ROBITUSSIN A-C 10-100 MG/5ML SYRUP 5cc PO Q 4-6 hr prn ROBITUSSIN A-C 10-100 MG/5ML SYRUP 30612814102 No Longer Active Lorenedada Durbin ADVAIR DISKUS 100-50 MCG/DOSE MISC 1 puff BID FLUTICASONE-SALMETEROL 12965894296 No Longer Active Lorene Meryl Durbin AUGMENTIN 500-125 MG TABS 1 PO BID AMOXICILLIN-POT CLAVULANATE 41617634801 No Longer Active Lorene Meryl Durbin PLAVIX 75 MG TABS 1 po daily CLOPIDOGREL BISULFATE 14762158889 No Longer Active Lorene Meryl Durbin AMOXIL 500 MG TABS 1 PO TID AMOXICILLIN 52304957543 No Longer Active Lorenedada Durbin Immunizations Vaccine [...] anion gap, serum 12 Clinical Lists Update: [facility] - Chemistry creatinine, serum 1.9 [...] 10*6/mm3 Encounters Code Encounter Date Provider Facility CPT-45647 Ofc Vst, Est Level III 16:04:23 CDT Lorene Merylgladys Levinener, DO, FACP CPT-58406 Ofc Vst, Est Level III 19:00:13 [employer] LAT[employer] OPERATOR Lorenedada Levinener, DO, FACP CPT-66678 Ofc Vst, Est Level III 21:20:47 CDT Lorene Meryl Paulson S Ramakrishna, DO, FACP CPT-55779 Ofc Vst, Est Level III 20:32:44 [employer]ICAL [employer]OL LATHE OPERATOR Lorene Durbin, DO, FACP CPT-11343 Ofc Vst, Est Level III 14:43:31 NUMERICAL [employer]OL LATHE OPERATOR Lorene Durbin, DO, FACP CPT-53423 Ofc Vst, Est Level III 20:01:57 [employer]OL LATHE OPERATOR Lorene Durbin, DO, FACP CPT-81549 Ofc Vst, Est Level III 16:57:33 CDT Lorene Levinener, DO, FACP CPT-10370 Ofc Vst, Est Level III 14:43:50 CDT Lorenedada Durbin, DO, FACP CPT-67592 Ofc Vst, Est Level III 15:02:07 CDT Lorenedada Levinener, DO, FACP CPT-35476 Ofc Vst, Est Level III 14:44:46 CDT Lorene Durbin, DO, FACP CPT-72794 Ofc Vst, Est Level IV 16:13:39 CDT Lorenedada Durbin, DO, FACP CPT-09576 Ofc Vst, Est Level III 11:48:41 CDT Lorene Meryl Sorensen Durbin, DO, FACP CPT-27604 Ofc Vst, Est Level III 15:46:15 CDT Lorene Meryl Paulson S Durbin, DO, FACP CPT-94795 Ofc Vst, Est Level IV 15:57:50 CDT Lorene Meryl Paulson S Durbin, DO, FACP CPT-57595 Ofc Vst, Est Level III 16:05:36 NUMERICAL CONTROL LATHE OPERATOR Lorene Meryl Pedersoni S Durbin, DO, FACP CPT-67282 Ofc Vst, Est Level IV 15:52:15 NUMERICAL CONTROL LATHE OPERATOR Lorene Meryl Paulson S Durbin, DO, FACP CPT-20265 Ofc Vst, Est Level III 15:08:06 CDT Lorene Meryl Sorensen Durbin, DO, FACP CPT-14625 Ofc Vst, Est Level IV 15:06:29 CDT Lorene Meryl Paulson S Durbin, DO, FACP CPT-81950 Ofc Vst, Est Level IV 13:29:16 CDT Lorene Meryl Paulson S Durbin, DO, FACP CPT-86923 Ofc Vst, Est Level V 13:50:55 NUMERICAL CONTROL LATHE OPERATOR Lorene Meryl Paulson S Durbin, DO, FACP CPT-99083 Ofc Vst, Est Level IV 11:10:14 NUMERICAL [employer]OL LATHE OPERATOR Lorene Meryl Paulson S Durbin, DO, FACP CPT-52858 Ofc Vst, Est Level III 15:28:22 CDT Lorene Meryl Paulsno S Durbin, DO, FACP CPT-83236 Ofc Vst, New Level IV 14:17:27 CDT Lorene Meryl Pedersoni S Ramakrishna, DO, FACP CPT-39161 Ofc Vst, New Level II 14:17:27 CDT Lorene Meryl Sorensen Durbin, DO, FACP CPT-91001 Ofc Vst, Est Level IV 10:59:16 CDT Lorene Meryl Sorensen Durbin, DO, FACP CPT-44277 Ofc Vst, Est Level II 16:12:29 CDT Lroene Meryl Sorensen Durbin, DO, FACP CPT-69877 Ofc Vst, Est Level IV 10:53:48 CDT Lorene Meryl Sorensen Durbin, DO, FACP CPT-83303 Office Consult, Level III 11:11:19 NUMERICAL CONTROL LATHE OPERATOR Lorene Sorensen Ramakrishna, DO, FACP CPT-72350 Ofc Vst, Est Level IV 11:12:23 CDT Lorenedada Sorensen Ramakrishna, DO, FACP CPT-55656 Ofc Vst, Est Level IV 11:46:11 CDT Lorenedada Sorensen Ramakrishna, DO, FACP CPT-75254 Ofc Vst, Est Level IV 15:36:14 CDT Lorene Meryl Sorensen Durbin, DO, FACP CPT-69132 Ofc Vst, Est Level IV 11:36:09 NUMERICAL CONTROL LATHE OPERATOR Lorene Sorensen Ramakrishna, DO, FACP CPT-53245 Ofc Vst, Est Level IV 16:28:10 CDT Lorene Meryl Sorensen Durbin, DO, FACP CPT-47920 Ofc Vst, Est Level IV 15:52:30 CDT Lorene Meryl Sorensen Durbin, DO, FACP CPT-16521 Ofc Vst, Est Level III 11:48:57 CDT Lorene Meryl Sorensen Durbin, DO, FACP CPT-16205 Ofc Vst, Est Level IV 09:15:20 NUMERICAL CONTROL LATHE OPERATOR Lorene Meryl Sorensen Ramakrishna, DO, FACP CPT-94622 Ofc Vst, Est Level IV 16:43:12 NUMERICAL CONTROL LATHE OPERATOR Lorenedada Levinener Lorene Edu Ramakrishna, DO, FACP CPT-31601 Ofc Vst, Est Level III 14:52:39 CDT Lorene Levinener Lorene Edu Ramakrishna, DO, FACP CPT-03905 Ofc Vst, Est Level IV 11:27:37 CDT Lorene Meryl Sorensen Ramakrishna, DO, FACP CPT-96151 Ofc Vst, Est Level III 09:53:01 NUMERICAL CONTROL LATHE OPERATOR Lorene Meryl Durbin Lorene Edu Ramakrishna, DO, FACP CPT-60510 Ofc Vst, Est Level IV 09:49:25 CDT Lorenedada Sheth Ramakrishna Lorene Edu Ramakrishna, DO, FACP CPT-55635 Ofc Vst, Est Level IV 11:33:29 CDT Lorene Meryl Levinener Lorene Sorensen Ramakrishna, DO, FACP CPT-01865 Ofc Vst, Est Level IV 14:11:50 NUMERICAL CONTROL LATHE OPERATOR Lorene Durbin [facility] CPT-44931 Ofc Vst, Est Level IV 17:26:08 NUMERICAL CONTROL LATHE OPERATOR Lorene Durbin [facility] CPT-61364 Ofc Vst, Est Level IV 10:40:42 NUMERICAL CONTROL LATHE OPERATOR Lorene Durbin [facility] CPT-60770 Ofc Vst, Est Level IV 15:05:22 CDT Lorene Meryl Durbin [facility] CPT-08516 Ofc Vst, Est Level IV 14:42:32 CDT Lorene Meryl Durbin [facility] CPT-24250 Ofc Vst, Est Level III 16:05:07 CDT Lorene Durbin [facility] CPT-02710 Ofc Vst, Est Level V 17:24:06 CDT Lorene Meryl Durbin [facility] CPT-52388 Ofc Vst, Est Level IV 16:02:46 CDT Lorene Merylgladys Durbin [facility] CPT-12624 Ofc Vst, Est Level III 12:50:41 NUMERICAL CONTROL LATHE OPERATOR Lorene Merylgladys Durbin [facility] CPT-24790 Ofc Vst, Est Level II 12:09:58 NUMERICAL CONTROL LATHE OPERATOR Lorenedada Durbin [facility] CPT-15658 Ofc Vst, Est Level IV 09:31:48 NUMERICAL CONTROL LATHE OPERATOR Lorene Durbin [facility] CPT-19927 Ofc Vst, Est Level III 10:36:21 NUMERICAL CONTROL LATHE OPERATOR Lorene Durbin [facility] CPT-16561 Ofc Vst, Est Level IV 15:48:05 CDT Lorene Merylgladys Durbin [facility] CPT-69957 Ofc Vst, Est Level III 11:58:31 CDT Lorene Durbin [facility] CPT-49685 Ofc Vst, Est Level IV 18:14:00 CDT Lorene Merylgladys Durbin [facility] CPT-40498 Ofc Vst, New Level III 19:15:23 NUMERICAL CONTROL LATHE OPERATOR Lorenedada Durbin [facility] Procedures Code Procedure Name Date Entry Date Standard Description CPT-G0439 Medicare Annual Wellness Visit 14:14:39 CDT CPT-G8445 E-Prescribing Not sent due to no medication given 21:20: 47 CDT CPT-G8445 E-Prescribing Not sent due to no medication given 20:32: 44 NUMERICAL CONTROL LATHE OPERATOR CPT-G8445 E-Prescribing Not sent due to no medication given 14:43: 31 NUMERICAL CONTROL LATHE OPERATOR CPT-G8445 E-Prescribing Not sent due to no medication given 20:01: 57 NUMERICAL [employer]OL LATHE OPERATOR CPT-G8445 E-Prescribing Not sent due to no medication given 16:57: 33 CDT CPT-G8445 E-Prescribing Not sent due to no medication given 14:43: 50 CDT CPT-G8445 E-Prescribing Not sent due to no medication given 15:02: 07 CDT CPT-G8443 E-Prescribing Medication Sent 14:44:46 CDT CPT-G8443 E-Prescribing Medication Sent 16:13:39 CDT CPT-80338 Biopsy, skin/subcut/mucous membrane; sngl lsn 15:46:15 CDT CPT-G8445 E-Prescribing Not sent due to no medication given 14:23: 32 CDT CPT-G0438 Medicare Annual Wellness Visit Initial 14:23:32 CDT CPT-G8445 E-Prescribing Not sent due to no medication given 15:57: 50 CDT CPT-G8443 E-Prescribing Medication Sent 15:52:15 NUMERICAL CONTROL LATHE OPERATOR CPT-G8443 E-Prescribing Medication Sent 15:08:06 CDT CPT-83360 Injection, Pneumovax 16:28:10 CDT CPT-G8443 E-Prescribing Medication Sent 15:52:30 CDT CPT-10040 EKG w/ Interpretation 17:24:06 CDT CPT-80269 EKG w/ Interpretation 11:58:31 CDT
--- OUTSIDE RECORDS SUMMARY | 2017-12-16 05:16 | XMS REPORT | Clinical Summary ---
Author Author User, FRM Study Course Organization Lorene Durbin DO, FACP Address Unknown [...] MG TABS 1 PO QD FOLIC ACID 94185476967 No Longer Active Lorene Durbin TRAZODONE HCL 100 MG TABS 1 PO AT HS TRAZODONE HCL 99794053205 Active Lorenedada Durbin PULMICORT 0.5 MG/2ML SUSP I VIAL-INHALE ORALLY DAILY BUDESONIDE 14630412937 Active Lorenedada Durbin PREDNISONE 5 MG TABS 1 PO DAILY PREDNISONE 47455231788 Active Lorenedada Durbin NOVOLOG FLEXPEN 100 UNIT/ML SOPN INJECT 3 SQ BEFORE MEALS INSULIN ASPART 69933210994 Active Lorenedada Durbin IPRATROPIUM-ALBUTEROL 0.5-2.5 (3) MG/3ML SOLN 1 VIAL INHALE ORALLY TID 09/17 IPRATROPIUM-ALBUTEROL 36340776667 Active Lorenedada Durbin DEPAKOTE SPRINKLES 125 MG CPSP 1 TIME DAILY DIVALPROEX SODIUM 04059569080 Active Lorenedada Durbin EXELON 4.6 MG/24HR PT24 APPLY PATCH DAILY RIVASTIGMINE 04169386430 Active Lorenedada Durbin FOLIC ACID 1 MG TABS 1 PO DAILY FOLIC ACID 94130955323 Active Lorenedada Durbin MELATONIN 3 MG TABS 1 PO AT HS FOR INSOMNIA MELATONIN 74447729246 Active Lorenedada Durbin MIRALAX POWD 17 GRAMS PO BID POLYETHYLENE GLYCOL 3350 49410918307 Active Lorenedada Durbin NORVASC 10 MG TABS 1 PO DAILY AMLODIPINE BESYLATE 47428073134 Active Lorene Meryl Durbin CELEXA 20 MG TABS 1 PO DAILY CITALOPRAM HYDROBROMIDE 38126178091 Active Lorene Meryl Durbin PAXIL 20 MG TAB 1 PO DAILY PAROXETINE HCL 23973012392 No Longer Active Lorene Meryl Durbin BISACODYL LAXATIVE 10 MG SUPP 1 WV QD PRN constipation BISACODYL 32423090801 No Longer Active Lorene Meryl Durbin COREG 6.25 MG TABS 1 PO BID CARVEDILOL 56737850808 Active Lorene Meryl Durbin BENADRYL 25 MG CAP 1 PO TID prn DIPHENHYDRAMINE HCL 32987781673 No Longer Active Lorene Meryl Durbin LACTULOSE SOLN 30 ML PO BID PRN Constipation LACTULOSE SOLN 05219597406 No Longer Active Lorene Meryl Durbin LASIX 40 MG TAB 1 PO MWF FUROSEMIDE 03541305959 No Longer Active Lorene Meryl Durbin VITAMIN D 1000 UNIT TABS 1 PO Daily CHOLECALCIFEROL 24788381496 Active Lorene Meryl Durbin ZOCOR 20 MG TABS 1 PO DAILY SIMVASTATIN 56608609281 Active Elizabeth Dixon FINASTERIDE 5 MG TABS 1 PO DAILY FINASTERIDE 31846466228 Active Lorene Meryl Durbin NAMENDA 10 MG TABS 1 PO BID MEMANTINE HCL 72892148126 Active Elizabeth Dixon KENALOG 0.1 % CREA apply to affected areas BID TRIAMCINOLONE ACETONIDE No Longer Active Lorene Meryl Durbin DILANTIN 100 MG CAP 1 PO at 7am and 2 pm and 2 PO at HS PHENYTOIN SODIUM EXTENDED 03774827912 No Longer Active Lorene Meryl Durbin PREDNISONE 20 MG TAB 1 PO daily for 7 days then resume 5mg dosing as previous PREDNISONE 34717727822 No Longer Active Lorene Meryl Durbin AUGMENTIN 500-125 MG TAB 1 PO BID AMOXICILLIN-POT CLAVULANATE 92093223667 No Longer Active Lorene Meryl Durbin OCUFLOX 0.3 % SOLN 2 drops in right ear TID for 7 days OFLOXACIN 95129670039 No Longer Active Lorene Meryl Durbin PREDNISONE 20 MG TAB 1 PO daily for 7 days PREDNISONE 00475800911 No Longer Active Lorene Meryl Durbin KENALOG 0.1 % CREA apply to affected areas BID TRIAMCINOLONE ACETONIDE No Longer Active Lorene Meryl Durbin ATARAX 25 MG TAB 1 PO Q6hrs prn itching HYDROXYZINE HCL No Longer Active Lorenedada Durbin DETROL LA 4 MG CP24 1 PO daily TOLTERODINE TARTRATE 51532315979 No Longer Active Lorene Meryl Durbin FINASTERIDE 5 MG TABS 1 PO BID FINASTERIDE 43775402544 No Longer Active Lorene Meryl Durbin BACTRIM DS 800-160 MG TAB 1 PO MWF TRIMETHOPRIM- SULFAMETHOXAZOLE 96082815989 No Longer Active Lorenedada Durbin NYSTATIN POWD Apply Topically to groin BID for gaulding NYSTATIN 60937389611 No Longer Active Lorene Meryl Durbin TERBINAFINE HCL 1 % CREA Apply to affected area BID TERBINAFINE HCL 73462748864 No Longer Active Lorene Meryl Durbin CALTRATE 600 PLUS-VIT D 600-200 MG-IU TABS 1 PO BID CALCIUM-VITAMIN D Active Elizabeth Dixon VALTREX 1 GM TAB 1 PO BID VALACYCLOVIR HCL 96046251863 No Longer Active Lorenedada Durbin TESSALON 200 MG CAPS 1 PO TID prn cough BENZONATATE 35969580850 No Longer Active Elizabeth Dixon PREDNISONE 10 MG TABS 1 PO QD PREDNISONE 33074799266 No Longer Active Lorene Meryl Durbin TESSALON 200 MG CAPS 1 PO TID prn cough BENZONATATE 11354588478 No Longer Active Lorene Meryl Durbin FLOMAX 0.4 MG CAPS 1 PO QD for urinary retention TAMSULOSIN HCL 75905192575 Active Elizabeth Dixon OMEPRAZOLE 40 MG CPDR 1 PO QD OMEPRAZOLE 29135981330 Active Elizabeth Dixon FERROUS SULFATE 325 (65 FE) MG TABS 1 PO BID FERROUS SULFATE 59079222012 Active Elizabeth Dixon COLACE 100 MG CAPS 1 PO BID prevent constipation DOCUSATE SODIUM 97195461857 Active Elizabeth Dixon ACETAMINOPHEN 325 MG TABS 2 PO Q 4hrs PRN pain or fever ACETAMINOPHEN 00839635192 Active Lorene Meryl Durbin IMURAN 50 MG TABS 3 po daily AZATHIOPRINE 04429287484 No Longer Active Lorene Meryl Durbin TOVIAZ 4 MG AK44D-VOM 1 po daily FESOTERODINE FUMARATE 03495386093 No Longer Active Lorene Meryl Durbin COREG 12.5 MG TABS 1 po bid CARVEDILOL 84091909421 No Longer Active Lorene Meryl Durbin WAVESENSE PRESTO TEST STRP Check BS Daily DX: DIABETES GLUCOSE BLOOD 75680923485 No Longer Active Lorene Meryl Durbin OMEPRAZOLE 40 MG CPDR 1 PO Daily OMEPRAZOLE 95777285958 No Longer Active Lorene Meryl Durbin FLOMAX 0.4 MG CAPS 1 PO Daily TAMSULOSIN HCL 45553215040 No Longer Active Lorene Meryl Durbin MEPRON 750 MG/5ML SUSP 5 ml PO BID ATOVAQUONE 00350651600 No Longer Active Lorene Meryl Durbin PREDNISONE 5 MG TABS 2 po daily PREDNISONE 49340058853 No Longer Active Lorene Meryl Durbin TERAZOSIN HCL 2 MG CAPS 1 PO qhs TERAZOSIN HCL 91323225721 No Longer Active Lorene Meryl Durbin VITAMIN D 1000 UNIT TABS 1 PO Daily CHOLECALCIFEROL 68873535521 No Longer Active Lorene Meryl Durbin PEPCID 20 MG TAB 1 PO daily FAMOTIDINE 04144655803 No Longer Active Lorene Meryl Durbin VITAMIN B-12 100 MCG TABS 1 po daily CYANOCOBALAMIN 79772278012 No Longer Active Lorene Meryl Durbin IRON 325 (65 FE) MG TABS 1 PO daily FERROUS SULFATE 27030282485 No Longer Active Lorene Meryl Durbin CALCIUM 600 1500 MG TABS 1 PO QAM and 2 PO QHS CALCIUM CARBONATE 74123073100 No Longer Active Lorene Meryl Durbin MULTIVITAMINS TABS 1 po daily MULTIPLE VITAMIN 73668860520 No Longer Active Lorene Meryl Durbin FISH OIL 1000 MG CAPS 1 po daily OMEGA-3 FATTY ACIDS 69918212687 No Longer Active Lorene Meryl Durbin ASPIRIN 81 MG TAB 1 PO QD ASPIRIN 10519569269 No Longer Active Lorene Meryl Durbin NORVASC 5 MG TAB 1 PO Daily AMLODIPINE BESYLATE 12584147145 No Longer Active Lorene Meryl Durbin CLOBETASOL PROPIONATE 0.05 % CREA Apply small amount to affected areas on arms BID CLOBETASOL PROPIONATE 74462881868 No Longer Active Lorene Meryl Durbin LOTRISONE 0.05-1 % CREAM Apply a small amount to affected area on back BID CLOTRIMAZOLE-BETAMETHASONE 09932287945 No Longer Active Lorene Meryl Durbin CYCLOPHOSPHAMIDE 25 MG TABS take 5 tablets once daily CYCLOPHOSPHAMIDE 56375713305 No Longer Active Lorene Meryl Durbin PERCOCET 5-325 MG TAB 1 PO Q 6 hours OXYCODONE- ACETAMINOPHEN 51904864126 No Longer Active Lorene Meryl Durbin VALTREX 1 GM TAB 1 PO BID VALACYCLOVIR HCL 08038917897 No Longer Active Lorene Meryl Durbin ACCUPRIL 10 MG TABS 1 po daily QUINAPRIL HCL 97192581007 No Longer Active Lorene Meryl Durbin COZAAR 25 MG TAB 1 PO daily LOSARTAN POTASSIUM 79937865022 No Longer Active Elizabeth Dixon MAGNESIUM OXIDE 400 MG CAPS 1 PO daily MAGNESIUM OXIDE 21397225762 No Longer Active Lorene Meryl Durbin LOTRISONE 0.05-1 % CREAM Apply to affected areas twice daily prn CLOTRIMAZOLE-BETAMETHASONE 85469182275 No Longer Active Lorene Meryl Durbin FERROUS SULFATE 100 MG 1 PO daily FERROUS SULFATE 100 MG No Longer Active Lorene Meryl Durbin QUALAQUIN 324 MG CAPS 1 PO QHS prn QUININE SULFATE 74000154626 No Longer Active Lorene Meryl Durbin ROBITUSSIN A-C 10-100 MG/5ML SYRUP 1 teaspoon PO Q 4-6 hr prn ROBITUSSIN A-C 10-100 MG/5ML SYRUP 18869000414 No Longer Active Lorene Meryl Durbin BIAXIN XL PAC 500 MG TB24 2 pills at same time daily for 7 days CLARITHROMYCIN 17950588904 No Longer Active Lorene Meryl Durbin TESSALON 200 MG CAPS 1 PO TID prn cough BENZONATATE 53653286597 No Longer Active Lorene Meryl Durbin ROBITUSSIN A-C 10-100 MG/5ML SYRUP 1 teaspoon PO Q 4-6 hr prn ROBITUSSIN A-C 10-100 MG/5ML SYRUP 66380252721 No Longer Active Lorene Meryl Durbin BIAXIN XL PAC 500 MG TB24 2 pills at same time daily for 7 days CLARITHROMYCIN 52426155139 No Longer Active Lorene Meryl Durbin KEFLEX 500 MG CAP 1 PO TID for 7 days CEPHALEXIN 34271248508 No Longer Active Lorene Meryl Durbin FERROUS SULFATE 325 (65 FE) MG TABS 1 PO daily FERROUS SULFATE 11554812393 No Longer Active Lorene Meryl Durbin CINNAMON 500 MG CAPS 1 po daily CINNAMON 83295397968 No Longer Active Lorene Meryl Durbin XANAX 0.25 MG TABS 1 po q 4-6 hrs prn ALPRAZOLAM 50848683205 No Longer Active Lorene Meryl Durbin TRIAMCINOLONE ACETONIDE 0.1 % OINT Apply as directed TRIAMCINOLONE ACETONIDE 40163819223 No Longer Active Lorene Meryl Durbin KERALAC 50 % GEL as needed UREA 97218595428 No Longer Active Lorene Meryl Durbin AMITRIPTYLINE HCL 25 MG TAB 1 PO daily at night prn AMITRIPTYLINE HCL 49107608778 No Longer Active Lorene Meryl Durbin ZOCOR 5 MG TABS 1 PO QOD (on hold) SIMVASTATIN 53377438192 No Longer Active Lorene Meryl Durbin VIAGRA 50 MG TABS prn SILDENAFIL CITRATE 81855825677 No Longer Active Lorene Meryl Durbin DARVOCET-N 100 100-650 MG TABS 1 po q 6 hrs. prn pain PROPOXYPHENE N-APAP 19065035461 No Longer Active Lorene Meryl Durbin CYCLOBENZAPRINE HCL 10 MG TABS 1 po q 12 hrs. prn CYCLOBENZAPRINE HCL 40090361516 No Longer Active Lorene Meryl Durbin LORTAB 5 5-500 MG TABS 1 as needed HYDROCODONE- ACETAMINOPHEN 73692954753 No Longer Active Lorenedada Durbin ALBUTEROL 90 MCG/ACT AERS 2 puffs Q4-6hrs prn ALBUTEROL 75071685157 No Longer Active Lorenedada Durbin ROBITUSSIN A-C 10-100 MG/5ML SYRUP 5cc PO Q 4-6 hr prn ROBITUSSIN A-C 10-100 MG/5ML SYRUP 93703799207 No Longer Active Lorenedada Durbin ADVAIR DISKUS 100-50 MCG/DOSE MISC 1 puff BID FLUTICASONE-SALMETEROL 24727170350 No Longer Active Lorenedada Durbin AUGMENTIN 500-125 MG TABS 1 PO BID AMOXICILLIN-POT CLAVULANATE 44371926710 No Longer Active Lorenedada Durbin PLAVIX 75 MG TABS 1 po daily CLOPIDOGREL BISULFATE 56356932971 No Longer Active Lorenedada Durbin AMOXIL 500 MG TABS 1 PO TID AMOXICILLIN 80580157850 No Longer Active Lorene Durbin Immunizations Vaccine Administration Date Value Standard Description Influenza vaccine given done influenza virus vaccine, unspecified formulation Influenza vaccine given done influenza virus vaccine, unspecified formulation pneumococcal immunization administered Dr. Durbin pneumococcal polysaccharide vaccine, 23 valent pneumococcal immunization administered Disscused pneumococcal polysaccharide vaccine, 23 valent Vital Signs Date Name Value Unit Range Description blood pressure, diastolic - 8462-4 72 mm[Hg] [...] Value Unit Range Description Clinical Lists Update: [facility] - Chemistry Estimated Glomerular Filtration Rate [...] hemoglobin, blood 10.9 g/dL Clinical Lists Update: [facility] - Chemistry potassium, serum [...] 10*6/mm3 Encounters Code Encounter Date Provider Facility CPT-40839 Ofc Vst, Est Level III 16:47:49 CDT Lorene Durbin DO, FACP CPT-68167 Ofc Vst, Est Level III 16:04:23 CDT Lorene Durbin DO, FACP CPT-77278 Ofc Vst, Est Level III 19:00:13 PRACTICE BILLING ASSOCIATE Lorene Durbin DO, FACP CPT-79885 Ofc Vst, Est Level III 21:20:47 CDT Lorene Durbin DO, FACP CPT-05266 Ofc Vst, Est Level III 20:32:44 PRACTICE BILLING ASSOCIATE Lorene Durbin DO, FACP CPT-88706 Ofc Vst, Est Level III 14:43:31 PRACTICE BILLING ASSOCIATE Lorene Sorensen Durbin, DO, FACP CPT-57882 Ofc Vst, Est Level III 20:01:57 PRACTICE BILLING ASSOCIATE Lorene Meryl Paulson S Durbin, DO, FACP CPT-88722 Ofc Vst, Est Level III 16:57:33 CDT Lorene Meryl Sorensen Durbin, DO, FACP CPT-07852 Ofc Vst, Est Level III 14:43:50 CDT Lorene Meryl Sorensen Durbin, DO, FACP CPT-63755 Ofc Vst, Est Level III 15:02:07 CDT Lorene Meryl Paulson S Durbin, DO, FACP CPT-86237 Ofc Vst, Est Level III 14:44:46 CDT Lorene Meryl Sorensen Durbin, DO, FACP CPT-99184 Ofc Vst, Est Level IV 16:13:39 CDT Lorene Meryl Sorensen Durbin, DO, FACP CPT-27671 Ofc Vst, Est Level III 11:48:41 CDT Lorene Meyrl Paulson S Durbin, DO, FACP CPT-88015 Ofc Vst, Est Level III 15:46:15 CDT Lorenedada Sorensen Durbin, DO, FACP CPT-14914 Ofc Vst, Est Level IV 15:57:50 CDT Lorene Meryl Sorensen Durbin, DO, FACP CPT-99405 Ofc Vst, Est Level III 16:05:36 PRACTICE BILLING ASSOCIATE Lorene Meryl Pedersoni S Durbin, DO, FACP CPT-76582 Ofc Vst, Est Level IV 15:52:15 PRACTICE BILLING ASSOCIATE Lorene Meryl Pedersoni S Durbin, DO, FACP CPT-91772 Ofc Vst, Est Level III 15:08:06 CDT Lorene Meryl Paulson S Durbin, DO, FACP CPT-68220 Ofc Vst, Est Level IV 15:06:29 CDT Lorene Meryl Sorensen Ramakrishna, DO, FACP CPT-20241 Ofc Vst, Est Level IV 13:29:16 CDT Lorene Meryl Sorensen Ramakrishna, DO, FACP CPT-17585 Ofc Vst, Est Level V 13:50:55 PRACTICE BILLING ASSOCIATE Lorene Sorensen Ramakrishna, DO, FACP CPT-91381 Ofc Vst, Est Level IV 11:10:14 PRACTICE BILLING ASSOCIATE Lorene Sorensen Ramakrishna, DO, FACP CPT-81547 Ofc Vst, Est Level III 15:28:22 CDT Lorenedada Sorensen Ramakrishna, DO, FACP CPT-55960 Ofc Vst, New Level IV 14:17:27 CDT Lorene Meryl Sorensen Ramakrishna, DO, FACP CPT-57184 Ofc Vst, New Level II 14:17:27 CDT Lorene Meryl Sorensen Ramakrishna, DO, FACP CPT-82765 Ofc Vst, Est Level IV 10:59:16 CDT Lorenedada Sorensen Ramakrishna, DO, FACP CPT-77748 Ofc Vst, Est Level II 16:12:29 CDT Lorene Meryl Sorensen Ramakrishna, DO, FACP CPT-23045 Ofc Vst, Est Level IV 10:53:48 CDT Lorene Meryl Sorensen Ramakrishna, DO, FACP CPT-80838 Office Consult, Level III 11:11:19 PRACTICE BILLING ASSOCIATE Lorene Sorensen Ramakrishna, DO, FACP CPT-85100 Ofc Vst, Est Level IV 11:12:23 CDT Lorene Meryl Sorensen Ramakrishna, DO, FACP CPT-46979 Ofc Vst, Est Level IV 11:46:11 CDT Lorene Meryl Sorensen Durbin, DO, FACP CPT-74364 Ofc Vst, Est Level IV 15:36:14 CDT Lorene Meryl Sorensen Durbin, DO, FACP CPT-68015 Ofc Vst, Est Level IV 11:36:09 PRACTICE BILLING ASSOCIATE Lorene Meryl Sorensen Durbin, DO, FACP CPT-78834 Ofc Vst, Est Level IV 16:28:10 CDT Lorene Meryl Sorensen Durbin, DO, FACP CPT-76298 Ofc Vst, Est Level IV 15:52:30 CDT Lorene Meryl Sorensen Durbin, DO, FACP CPT-61462 Ofc Vst, Est Level III 11:48:57 CDT Lorene Meryl Sorensen Durbin, DO, FACP CPT-99956 Ofc Vst, Est Level IV 09:15:20 PRACTICE BILLING ASSOCIATE Lorene Meryl Sorensen Durbin, DO, FACP CPT-13501 Ofc Vst, Est Level IV 16:43:12 PRACTICE BILLING ASSOCIATE Lorene Sorensen Durbin, DO, FACP CPT-51513 Ofc Vst, Est Level III 14:52:39 CDT Lorene Meryl Sorensen Durbin, DO, FACP CPT-42407 Ofc Vst, Est Level IV 11:27:37 CDT Lorene Meryl Sorensen Durbin, DO, FACP CPT-91018 Ofc Vst, Est Level III 09:53:01 PRACTICE BILLING ASSOCIATE Lorene Sorensen Durbin, DO, FACP CPT-29930 Ofc Vst, Est Level IV 09:49:25 CDT Lorene Meryl Sorensen Durbin, DO, FACP CPT-28183 Ofc Vst, Est Level IV 11:33:29 CDT Lorene Durbin DO, FACP CPT-18744 Ofc Vst, Est Level IV 14:11:50 PRACTICE BILLING ASSOCIATE Lorene Durbin [facility] [place] CPT-23037 Ofc Vst, Est Level IV 17:26:08 PRACTICE BILLING ASSOCIATE Lorene Durbin [facility] [place] CPT-98419 Ofc Vst, Est Level IV 10:40:42 PRACTICE BILLING ASSOCIATE Lorene Durbin [facility] [place] CPT-13007 Ofc Vst, Est Level IV 15:05:22 CDT Lorene Mreyl Durbin [facility] [place] CPT-90548 Ofc Vst, Est Level IV 14:42:32 CDT Lorene Durbin [facility] [place] CPT-39929 Ofc Vst, Est Level III 16:05:07 CDT Lorene Durbin [facility] [place] CPT-74638 Ofc Vst, Est Level V 17:24:06 CDT Lorenedada Durbin [facility] [place] CPT-27626 Ofc Vst, Est Level IV 16:02:46 CDT Lorene Durbin [facility] [place] CPT-46708 Ofc Vst, Est Level III 12:50:41 PRACTICE BILLING ASSOCIATE Lorene Durbin [facility] [place] CPT-11265 Ofc Vst, Est Level II 12:09:58 PRACTICE BILLING ASSOCIATE Lorene Durbin [facility] [place] CPT-93485 Ofc Vst, Est Level IV 09:31:48 PRACTICE BILLING ASSOCIATE Lorene Durbin [facility] [place] CPT-44045 Ofc Vst, Est Level III 10:36:21 PRACTICE BILLING ASSOCIATE Lorene Durbin [facility] [place] CPT-15210 Ofc Vst, Est Level IV 15:48:05 CDT Lorene Durbin [facility] [place] CPT-80383 Ofc Vst, Est Level III 11:58:31 CDT Lorene Meryl Durbin [facility] [place] CPT-82836 Ofc Vst, Est Level IV 18:14:00 CDT Lorene Durbin [facility] [place] CPT-85741 Ofc Vst, New Level III 19:15:23 PRACTICE BILLING ASSOCIATE Lorenedada Durbin [facility] [place] Procedures Code Procedure Name Date Entry Date Standard Description CPT-G0439 Medicare Annual Wellness Visit 14:14:39 CDT CPT-G8445 E-Prescribing Not sent due to no medication given 21:20: 47 CDT CPT-G8445 E-Prescribing Not sent due to no medication given 20:32: 44 PRACTICE BILLING ASSOCIATE CPT-G8445 E-Prescribing Not sent due to no medication given 14:43: 31 PRACTICE BILLING ASSOCIATE CPT-G8445 E-Prescribing Not sent due to no medication given 20:01: 57 PRACTICE BILLING ASSOCIATE CPT-G8445 E-Prescribing Not sent due to no medication given 16:57: 33 CDT CPT-G8445 E-Prescribing Not sent due to no medication given 14:43: 50 CDT CPT-G8445 E-Prescribing Not sent due to no medication given 15:02: 07 CDT CPT-G8443 E-Prescribing Medication Sent 14:44:46 CDT CPT-G8443 E-Prescribing Medication Sent 16:13:39 CDT CPT-85631 Biopsy, skin/subcut/mucous membrane; sngl lsn 15:46:15 CDT CPT-G8445 E-Prescribing Not sent due to no medication given 14:23: 32 CDT CPT-G0438 Medicare Annual Wellness Visit Initial 14:23:32 CDT CPT-G8445 E-Prescribing Not sent due to no medication given 15:57: 50 CDT CPT-G8443 E-Prescribing Medication Sent 15:52:15 PRACTICE BILLING ASSOCIATE CPT-G8443 E-Prescribing Medication Sent 15:08:06 CDT CPT-38950 Injection, Pneumovax 16:28:10 CDT CPT-G8443 E-Prescribing Medication Sent 15:52:30 CDT CPT-33958 EKG w/ Interpretation 17:24:06 CDT CPT-35536 EKG w/ Interpretation 11:58:31 CDT
--- OUTSIDE RECORDS SUMMARY | 2017-12-16 05:18 | XMS REPORT | Clinical Summary ---
Author Author User, [employer] Organization Lorene Durbin DO, FACP Address Unknown [...] 1 PO dialy for three days PREDNISONE [id number] Active Lorene Durbin SYMBICORT 160-4.5 MCG/ACT AERO 2 puffs BID BUDESONIDE- FORMOTEROL FUMARATE 84698685897 Active Lorene Durbin PULMICORT 0.5 MG/2ML SUSP I VIAL-INHALE ORALLY DAILY BUDESONIDE 26611939965 No Longer Active Lorene Durbin FOLIC ACID 1 MG TABS 1 PO QD FOLIC ACID 66891253666 No Longer Active Lorene Durbin TRAZODONE HCL 100 MG TABS 1 PO AT HS TRAZODONE HCL 79584645282 Active Lorene Durbin PREDNISONE 5 MG TABS 1 PO DAILY PREDNISONE 41076778631 Active Lorene Durbin NOVOLOG FLEXPEN 100 UNIT/ML SOPN INJECT 3 SQ BEFORE MEALS INSULIN ASPART 19454315953 Active Lorene Durbin IPRATROPIUM-ALBUTEROL 0.5-2.5 (3) MG/3ML SOLN 1 VIAL INHALE ORALLY TID 09/17 IPRATROPIUM-ALBUTEROL 58779187539 Active Lorene Durbin DEPAKOTE SPRINKLES 125 MG CPSP 1 TIME DAILY DIVALPROEX SODIUM 73659450722 Active Lorene Levinener EXELON 4.6 MG/24HR PT24 APPLY PATCH DAILY RIVASTIGMINE 37341258014 Active Lorene Meryl Ramakrishna FOLIC ACID 1 MG TABS 1 PO DAILY FOLIC ACID 69611393061 Active Lorene Meryl Ramakrishna MELATONIN 3 MG TABS 1 PO AT HS FOR INSOMNIA MELATONIN 45885478330 Active Lorene Meryl Ramakrishna MIRALAX POWD 17 GRAMS PO BID POLYETHYLENE GLYCOL 3350 71491604688 Active Lorene Meryl Ramakrishna NORVASC 10 MG TABS 1 PO DAILY AMLODIPINE BESYLATE 68822277413 Active Lorene Meryl Ramakrishna CELEXA 20 MG TABS 1 PO DAILY CITALOPRAM HYDROBROMIDE 07683411375 Active Lorene Meryl Ramakrishna PAXIL 20 MG TAB 1 PO DAILY PAROXETINE HCL 23140145834 No Longer Active Lorene Meryl Durbin BISACODYL LAXATIVE 10 MG SUPP 1 ME QD PRN constipation BISACODYL 81041251241 No Longer Active Lorene Meryl Durbin COREG 6.25 MG TABS 1 PO BID CARVEDILOL 32386379359 Active Lorene Merylgladys Durbin BENADRYL 25 MG CAP 1 PO TID prn DIPHENHYDRAMINE HCL 85283557159 No Longer Active Lorene Meryl Durbin LACTULOSE SOLN 30 ML PO BID PRN Constipation LACTULOSE SOLN 80763316291 No Longer Active Lorene Meryl Durbin LASIX 40 MG TAB 1 PO MWF FUROSEMIDE 51086647822 No Longer Active Lorene Meryl Durbin VITAMIN D 1000 UNIT TABS 1 PO Daily CHOLECALCIFEROL 94178124084 Active Lorene Meryl Durbin ZOCOR 20 MG TABS 1 PO DAILY SIMVASTATIN 94559413985 Active Elizabeth Dixon FINASTERIDE 5 MG TABS 1 PO DAILY FINASTERIDE 45608933339 Active Lorene Meryl Durbin NAMENDA 10 MG TABS 1 PO BID MEMANTINE HCL 83503745406 Active Elizabeth Dixon KENALOG 0.1 % CREA apply to affected areas BID TRIAMCINOLONE ACETONIDE No Longer Active Lorene Meryl Durbin DILANTIN 100 MG CAP 1 PO at 7am and 2 pm and 2 PO at HS PHENYTOIN SODIUM EXTENDED 93330138812 No Longer Active Lorene Meryl Durbin PREDNISONE 20 MG TAB 1 PO daily for 7 days then resume 5mg dosing as previous PREDNISONE 34386207312 No Longer Active Lorene Meryl Durbin AUGMENTIN 500-125 MG TAB 1 PO BID AMOXICILLIN-POT CLAVULANATE 42687594880 No Longer Active Lorenedada Durbin OCUFLOX 0.3 % SOLN 2 drops in right ear TID for 7 days OFLOXACIN 31621062052 No Longer Active Lorene Meryl Durbin PREDNISONE 20 MG TAB 1 PO daily for 7 days PREDNISONE 67438210585 No Longer Active Lorene Meryl Durbin KENALOG 0.1 % CREA apply to affected areas BID TRIAMCINOLONE ACETONIDE No Longer Active Lorenedada Durbin ATARAX 25 MG TAB 1 PO Q6hrs prn itching HYDROXYZINE HCL No Longer Active Lorenedada Durbin DETROL LA 4 MG CP24 1 PO daily TOLTERODINE TARTRATE 55929392096 No Longer Active Lorene Meryl Durbin FINASTERIDE 5 MG TABS 1 PO BID FINASTERIDE 56553220673 No Longer Active Lorene Meryl Durbin BACTRIM DS 800-160 MG TAB 1 PO MWF TRIMETHOPRIM- SULFAMETHOXAZOLE 69583655859 No Longer Active Lorene Meryl Durbin NYSTATIN POWD Apply Topically to groin BID for gaulding NYSTATIN 79204573434 No Longer Active Lorene Durbin TERBINAFINE HCL 1 % CREA Apply to affected area BID TERBINAFINE HCL 61011223816 No Longer Active Lorenedada Durbin CALTRATE 600 PLUS-VIT D 600-200 MG-IU TABS 1 PO BID CALCIUM-VITAMIN D Active Elizabeth Dixon VALTREX 1 GM TAB 1 PO BID VALACYCLOVIR HCL 40092849196 No Longer Active Lorenedada Durbin TESSALON 200 MG CAPS 1 PO TID prn cough BENZONATATE 48631714453 No Longer Active Elizabeth Dixon PREDNISONE 10 MG TABS 1 PO QD PREDNISONE 72716941574 No Longer Active Lorenedada Durbin TESSALON 200 MG CAPS 1 PO TID prn cough BENZONATATE 96031484720 No Longer Active Lorene Durbin FLOMAX 0.4 MG CAPS 1 PO QD for urinary retention TAMSULOSIN HCL 50073956249 Active Elizabeth Dixon OMEPRAZOLE 40 MG CPDR 1 PO QD OMEPRAZOLE 87374677429 Active Elizabeth Dixon FERROUS SULFATE 325 (65 FE) MG TABS 1 PO BID FERROUS SULFATE 80698769241 Active Elizabeth Dixon COLACE 100 MG CAPS 1 PO BID prevent constipation DOCUSATE SODIUM 91471964058 Active Elizabeth Dixon ACETAMINOPHEN 325 MG TABS 2 PO Q 4hrs PRN pain or fever ACETAMINOPHEN 00993408789 Active Lorenedada Durbin IMURAN 50 MG TABS 3 po daily AZATHIOPRINE 02517872745 No Longer Active Lorenedada Durbin TOVIAZ 4 MG FZ10G-XVC 1 po daily FESOTERODINE FUMARATE 79404497330 No Longer Active Lorenedada Durbin COREG 12.5 MG TABS 1 po bid CARVEDILOL 79174549120 No Longer Active Lorene Meryl Durbin WAVESENSE PRESTO TEST STRP Check BS Daily DX: DIABETES GLUCOSE BLOOD 66054693337 No Longer Active Lorene Meryl Durbin OMEPRAZOLE 40 MG CPDR 1 PO Daily OMEPRAZOLE 85683784517 No Longer Active Lorene Meryl Durbin FLOMAX 0.4 MG CAPS 1 PO Daily TAMSULOSIN HCL 15697566114 No Longer Active Lorene Meryl Durbin MEPRON 750 MG/5ML SUSP 5 ml PO BID ATOVAQUONE 14929904017 No Longer Active Lorene Meryl Durbin PREDNISONE 5 MG TABS 2 po daily PREDNISONE 19802339819 No Longer Active Lorene Meryl Durbin TERAZOSIN HCL 2 MG CAPS 1 PO qhs TERAZOSIN HCL 24467429769 No Longer Active Lorene Meryl Durbin VITAMIN D 1000 UNIT TABS 1 PO Daily CHOLECALCIFEROL 42892223706 No Longer Active Lorene Meryl Durbin PEPCID 20 MG TAB 1 PO daily FAMOTIDINE 65847324983 No Longer Active Loreen Meryl Durbin VITAMIN B-12 100 MCG TABS 1 po daily CYANOCOBALAMIN 11018262961 No Longer Active Lorene Meryl Durbin IRON 325 (65 FE) MG TABS 1 PO daily FERROUS SULFATE 22021085651 No Longer Active Lorene Meryl Durbin CALCIUM 600 1500 MG TABS 1 PO QAM and 2 PO QHS CALCIUM CARBONATE 09084272791 No Longer Active Lorene Meryl Durbin MULTIVITAMINS TABS 1 po daily MULTIPLE VITAMIN 01465441361 No Longer Active Lorene Meryl Durbin FISH OIL 1000 MG CAPS 1 po daily OMEGA-3 FATTY ACIDS 60058794029 No Longer Active Lorene Meryl Durbin ASPIRIN 81 MG TAB 1 PO QD ASPIRIN 29857155331 No Longer Active Lorene Meryl Durbin NORVASC 5 MG TAB 1 PO Daily AMLODIPINE BESYLATE 69520069299 No Longer Active Lorene Meryl Durbin CLOBETASOL PROPIONATE 0.05 % CREA Apply small amount to affected areas on arms BID CLOBETASOL PROPIONATE 76034704844 No Longer Active Lorene Meryl Durbin LOTRISONE 0.05-1 % CREAM Apply a small amount to affected area on back BID CLOTRIMAZOLE-BETAMETHASONE 16430725346 No Longer Active Lorene Meryl Durbin CYCLOPHOSPHAMIDE 25 MG TABS take 5 tablets once daily CYCLOPHOSPHAMIDE 64694804732 No Longer Active Lorene Meryl Durbin PERCOCET 5-325 MG TAB 1 PO Q 6 hours OXYCODONE- ACETAMINOPHEN 51882415433 No Longer Active Lorene Meryl Durbin VALTREX 1 GM TAB 1 PO BID VALACYCLOVIR HCL 48554247760 No Longer Active Lorene Meryl Durbin ACCUPRIL 10 MG TABS 1 po daily QUINAPRIL HCL 24493675407 No Longer Active Lorene Meryl Durbin COZAAR 25 MG TAB 1 PO daily LOSARTAN POTASSIUM 84873470117 No Longer Active Elizabeth Dixon MAGNESIUM OXIDE 400 MG CAPS 1 PO daily MAGNESIUM OXIDE 23858441353 No Longer Active Lorene Meryl Durbin LOTRISONE 0.05-1 % CREAM Apply to affected areas twice daily prn CLOTRIMAZOLE-BETAMETHASONE 90117949997 No Longer Active Lorenedada Durbin FERROUS SULFATE 100 MG 1 PO daily FERROUS SULFATE 100 MG No Longer Active Lorene Meryl Durbin QUALAQUIN 324 MG CAPS 1 PO QHS prn QUININE SULFATE 95933349974 No Longer Active Lorene Meryl Durbin ROBITUSSIN A-C 10-100 MG/5ML SYRUP 1 teaspoon PO Q 4-6 hr prn ROBITUSSIN A-C 10-100 MG/5ML SYRUP 51678457019 No Longer Active Lorene Meryl Durbin BIAXIN XL PAC 500 MG TB24 2 pills at same time daily for 7 days CLARITHROMYCIN 99901437987 No Longer Active Lorene Meryl Durbin TESSALON 200 MG CAPS 1 PO TID prn cough BENZONATATE 10727024487 No Longer Active Lorene Meryl Durbin ROBITUSSIN A-C 10-100 MG/5ML SYRUP 1 teaspoon PO Q 4-6 hr prn ROBITUSSIN A-C 10-100 MG/5ML SYRUP 70300575179 No Longer Active Lorene Meryl Durbin BIAXIN XL PAC 500 MG TB24 2 pills at same time daily for 7 days CLARITHROMYCIN 05036751541 No Longer Active Lorene Meryl Durbin KEFLEX 500 MG CAP 1 PO TID for 7 days CEPHALEXIN 24481937751 No Longer Active Lorene Meryl Durbin FERROUS SULFATE 325 (65 FE) MG TABS 1 PO daily FERROUS SULFATE 53170061744 No Longer Active Lorene Meryl Durbin CINNAMON 500 MG CAPS 1 po daily CINNAMON 62256817706 No Longer Active Lorene Meryl Durbin XANAX 0.25 MG TABS 1 po q 4-6 hrs prn ALPRAZOLAM 68907610777 No Longer Active Lorene Meryl Durbin TRIAMCINOLONE ACETONIDE 0.1 % OINT Apply as directed TRIAMCINOLONE ACETONIDE 21285175521 No Longer Active Lorene Meryl Durbin KERALAC 50 % GEL as needed UREA 26911909583 No Longer Active Lorene Meryl Durbin AMITRIPTYLINE HCL 25 MG TAB 1 PO daily at night prn AMITRIPTYLINE HCL 07310639668 No Longer Active Lorene Meryl Durbin ZOCOR 5 MG TABS 1 PO QOD (on hold) SIMVASTATIN 60526983426 No Longer Active Lorene Meryl Durbin VIAGRA 50 MG TABS prn SILDENAFIL CITRATE 27731787607 No Longer Active Lorene Meryl Durbin DARVOCET-N 100 100-650 MG TABS 1 po q 6 hrs. prn pain PROPOXYPHENE N-APAP 47179291883 No Longer Active Lorene Meryl Durbin CYCLOBENZAPRINE HCL 10 MG TABS 1 po q 12 hrs. prn CYCLOBENZAPRINE HCL 78977526861 No Longer Active Lorene Meryl Durbin LORTAB 5 5-500 MG TABS 1 as needed HYDROCODONE- ACETAMINOPHEN 35636402565 No Longer Active Lorene Meryl Durbin ALBUTEROL 90 MCG/ACT AERS 2 puffs Q4-6hrs prn ALBUTEROL 82535946036 No Longer Active Lorene Meryl Durbin ROBITUSSIN A-C 10-100 MG/5ML SYRUP 5cc PO Q 4-6 hr prn ROBITUSSIN A-C 10-100 MG/5ML SYRUP 54240302980 No Longer Active Lorenedada Durbin ADVAIR DISKUS 100-50 MCG/DOSE MISC 1 puff BID FLUTICASONE-SALMETEROL 04334138298 No Longer Active Lorene Meryl Durbin AUGMENTIN 500-125 MG TABS 1 PO BID AMOXICILLIN-POT CLAVULANATE 67728826428 No Longer Active Lorene Meryl Durbin PLAVIX 75 MG TABS 1 po daily CLOPIDOGREL BISULFATE 10290295201 No Longer Active Lorene Meryl Durbin AMOXIL 500 MG TABS 1 PO TID AMOXICILLIN 32709889689 No Longer Active Lorene Meryl Durbin Immunizations [...] platelet count 131 10*3/mm3 Clinical Lists Update: CBC,BMP DR [facility] - Chemistry urea nitrogen, blood 27 mg/dL creatinine, serum 1.9 mg/dL potassium, serum 5.0 mmol/L sodium, serum 139 mmol/L anion gap, serum 10 glucose, plasma fasting 133 mg/dL Estimated Glomerular Filtration Rate (calc) 37 mL/min/1.73m2 calcium, serum 9.4 mg/dL chloride, serum 103 mmol/L carbon dioxide, venous blood 31.0 mmol/L Clinical Lists Update: CBC,BMP DR QUINTERO [...] 10*6/mm3 Encounters Code Encounter Date Provider Facility CPT-19875 Ofc Vst, Est Level III 14:28:01 CDT Lorenedada Levinener, DO, FACP CPT-28842 Ofc Vst, Est Level III 16:47:49 CDT Lorene Meryl Durbin, DO, FACP CPT-63448 Ofc Vst, Est Level III 16:04:23 CDT Lorenedada Durbin, DO, FACP CPT-21508 Ofc Vst, Est Level III 19:00:13 LOW VISION THERAPIST Lorene Durbin, DO, FACP CPT-25651 Ofc Vst, Est Level III 21:20:47 CDT Lorenedada Durbin, DO, FACP CPT-45225 Ofc Vst, Est Level III 20:32:44 LOW VISION THERAPIST Lorene Durbin, DO, FACP CPT-21065 Ofc Vst, Est Level III 14:43:31 LOW VISION THERAPIST Lorene Durbin, DO, FACP CPT-14976 Ofc Vst, Est Level III 20:01:57 LOW VISION THERAPIST Lorene Levinener, DO, FACP CPT-47084 Ofc Vst, Est Level III 16:57:33 CDT Lorene Durbin, DO, FACP CPT-32806 Ofc Vst, Est Level III 14:43:50 CDT Lorene Durbin, DO, FACP CPT-94372 Ofc Vst, Est Level III 15:02:07 CDT Lorene Meryl Sorensen Durbin, DO, FACP CPT-73123 Ofc Vst, Est Level III 14:44:46 CDT Lorene Meryl Paulson S Durbin, DO, FACP CPT-82079 Ofc Vst, Est Level IV 16:13:39 CDT Lorene Meryl Sorensen Durbin, DO, FACP CPT-34540 Ofc Vst, Est Level III 11:48:41 CDT Lorene Meryl Paulson S Durbin, DO, FACP CPT-62827 Ofc Vst, Est Level III 15:46:15 CDT Lorene Meryl Paulson S Durbin, DO, FACP CPT-79486 Ofc Vst, Est Level IV 15:57:50 CDT Lorene Meryl Sorensen Durbin, DO, FACP CPT-73912 Ofc Vst, Est Level III 16:05:36 LOW VISION THERAPIST Lorene Meryl Paulson S Durbin, DO, FACP CPT-58861 Ofc Vst, Est Level IV 15:52:15 LOW VISION THERAPIST Lorene Meryl Paulson S Durbin, DO, FACP CPT-82564 Ofc Vst, Est Level III 15:08:06 CDT Lorene Meryl Sorensen Durbin, DO, FACP CPT-99537 Ofc Vst, Est Level IV 15:06:29 CDT Lorene Meryl Sorensen Durbin, DO, FACP CPT-62561 Ofc Vst, Est Level IV 13:29:16 CDT Lorene Meryl Paulson S Durbin, DO, FACP CPT-50401 Ofc Vst, Est Level V 13:50:55 LOW VISION THERAPIST Lorene Meryl Paulson S Durbin, DO, FACP CPT-78359 Ofc Vst, Est Level IV 11:10:14 LOW VISION THERAPIST Lorenedada Sorensen Ramakrishna, DO, FACP CPT-80530 Ofc Vst, Est Level III 15:28:22 CDT Lorene Meyrl Sorensen Ramakrishna, DO, FACP CPT-08610 Ofc Vst, New Level IV 14:17:27 CDT Lorene Meryl Sorensen Ramakrishna, DO, FACP CPT-75793 Ofc Vst, New Level II 14:17:27 CDT Lorene Meryl Sorensen Durbin, DO, FACP CPT-70441 Ofc Vst, Est Level IV 10:59:16 CDT Lorenedada Sorensen Ramakrishna, DO, FACP CPT-45158 Ofc Vst, Est Level II 16:12:29 CDT Lorenedada Sorensen Ramakrishna, DO, FACP CPT-92546 Ofc Vst, Est Level IV 10:53:48 CDT Lorenedada Sorensen Ramakrishna, DO, FACP CPT-05480 Office Consult, Level III 11:11:19 LOW VISION THERAPIST Lorene Sorensen Ramakrishna, DO, FACP CPT-44048 Ofc Vst, Est Level IV 11:12:23 CDT Lorene Sorensen Ramakrishna, DO, FACP CPT-73474 Ofc Vst, Est Level IV 11:46:11 CDT Lorenedada Sorensen Ramakrishna, DO, FACP CPT-93679 Ofc Vst, Est Level IV 15:36:14 CDT Lorene Sorensen Ramakrishna, DO, FACP CPT-75792 Ofc Vst, Est Level IV 11:36:09 LOW VISION THERAPIST Lorene Sorensen Ramakrishna, DO, FACP CPT-03915 Ofc Vst, Est Level IV 16:28:10 CDT Lorene Meryl Sorensen Ramakrishna, DO, FACP CPT-68690 Ofc Vst, Est Level IV 15:52:30 CDT Lorenedada Sorensen Ramakrishna, DO, FACP CPT-36423 Ofc Vst, Est Level III 11:48:57 CDT Lorene Sorensen Ramakrishna, DO, FACP CPT-89462 Ofc Vst, Est Level IV 09:15:20 LOW VISION THERAPIST Lorenedada Sorensen Ramakrishna, DO, FACP CPT-70504 Ofc Vst, Est Level IV 16:43:12 LOW VISION THERAPIST Lorene Meryl Sorensen Ramakrishna, DO, FACP CPT-05094 Ofc Vst, Est Level III 14:52:39 CDT Lorene Sorensen Ramakrishna, DO, FACP CPT-99632 Ofc Vst, Est Level IV 11:27:37 CDT Lorene Meryl Sorensen Ramakrishna, DO, FACP CPT-91385 Ofc Vst, Est Level III 09:53:01 LOW VISION THERAPIST Lorenedada Sorensen Ramakrishna, DO, FACP CPT-62156 Ofc Vst, Est Level IV 09:49:25 CDT Lorenedada Sorensen Ramakrishna, DO, FACP CPT-37114 Ofc Vst, Est Level IV 11:33:29 CDT Lorenedada Sorensen Ramakrishna, DO, FACP CPT-42269 Ofc Vst, Est Level IV 14:11:50 LOW VISION THERAPIST Lorene Durbin [facility] CPT-94670 Ofc Vst, Est Level IV 17:26:08 LOW VISION THERAPIST Lorene Durbin [facility] CPT-23938 Ofc Vst, Est Level IV 10:40:42 LOW VISION THERAPIST Lorene Durbin [facility] CPT-88291 Ofc Vst, Est Level IV 15:05:22 CDT Lorene Meryl Durbin [facility] [employer] CPT-46974 Ofc Vst, Est Level IV 14:42:32 CDT Lorene Meryl Durbin [facility] CPT-56688 Ofc Vst, Est Level III 16:05:07 CDT Lorene Durbin [facility] CPT-51840 Ofc Vst, Est Level V 17:24:06 CDT Lorene Meryl Durbin [facility] CPT-02879 Ofc Vst, Est Level IV 16:02:46 CDT Lorene Meryl Durbin [facility] CPT-60313 Ofc Vst, Est Level III 12:50:41 LOW VISION THERAPIST Lorene Durbin [facility] CPT-03074 Ofc Vst, Est Level II 12:09:58 LOW VISION THERAPIST Lorene Durbin [facility] CPT-26230 Ofc Vst, Est Level IV 09:31:48 LOW VISION THERAPIST Lorene Durbin [facility] CPT-32659 Ofc Vst, Est Level III 10:36:21 LOW VISION THERAPIST Lorene Durbin [facility] CPT-89625 Ofc Vst, Est Level IV 15:48:05 CDT Lorene Durbin [facility] CPT-34546 Ofc Vst, Est Level III 11:58:31 CDT Lorene Durbin [facility] CPT-06098 Ofc Vst, Est Level IV 18:14:00 CDT Lorene Meryl Durbin [facility] CPT-99171 Ofc Vst, New Level III 19:15:23 LOW VISION THERAPIST Lorene Durbin [facility] Procedures Code Procedure Name Date Entry Date Standard Description CPT-G0439 Medicare Annual Wellness Visit 14:14:39 CDT CPT-G8445 E-Prescribing Not sent due to no medication given 21:20: 47 CDT CPT-G8445 E-Prescribing Not sent due to no medication given 20:32: 44 LOW VISION THERAPIST CPT-G8445 E-Prescribing Not sent due to no medication given 14:43: 31 LOW VISION THERAPIST CPT-G8445 E-Prescribing Not sent due to no medication given 20:01: 57 LOW VISION THERAPIST CPT-G8445 E-Prescribing Not sent due to no medication given 16:57: 33 CDT CPT-G8445 E-Prescribing Not sent due to no medication given 14:43: 50 CDT CPT-G8445 E-Prescribing Not sent due to no medication given 15:02: 07 CDT CPT-G8443 E-Prescribing Medication Sent 14:44:46 CDT CPT-G8443 E-Prescribing Medication Sent 16:13:39 CDT CPT-52836 Biopsy, skin/subcut/mucous membrane; sngl lsn 15:46:15 CDT CPT-G8445 E-Prescribing Not sent due to no medication given 14:23: 32 CDT CPT-G0438 Medicare Annual Wellness Visit Initial 14:23:32 CDT CPT-G8445 E-Prescribing Not sent due to no medication given 15:57: 50 CDT CPT-G8443 E-Prescribing Medication Sent 15:52:15 LOW VISION THERAPIST CPT-G8443 E-Prescribing Medication Sent 15:08:06 CDT CPT-65700 Injection, Pneumovax 16:28:10 CDT CPT-G8443 E-Prescribing Medication Sent 15:52:30 CDT CPT-24943 EKG w/ Interpretation 17:24:06 CDT CPT-30039 EKG w/ Interpretation 11:58:31 CDT
--- OUTSIDE RECORDS SUMMARY | 2017-12-16 05:19 | XMS REPORT | Clinical Summary ---
Author Author User, [employer] Lorene Durbin DO, FACP Address Unknown [...] limb ABDOMINAL PAIN, ACUTE 789.00 Resolved Lorene uDrbin Abdominal pain, unspecified site ANEMIA NOS 285.9 [...] SUPP 1 CT QD PRN constipation BISACODYL [id number] No Longer Active Lorene Durbin PREDNISONE 2.5 MG TABS 1 PO DAILY PREDNISONE 32630969334 Active Lorenedada Durbin COREG 6.25 MG TABS 1 PO BID CARVEDILOL 78363142904 Active Lorenedada Durbin BENADRYL 25 MG CAP 1 PO TID prn DIPHENHYDRAMINE HCL 86079493438 No Longer Active Lorenedada Durbin LACTULOSE SOLN 30 ML PO BID PRN Constipation LACTULOSE SOLN 16051991692 No Longer Active Lorene Durbin LASIX 40 MG TAB 1 PO MWF FUROSEMIDE 78565041487 No Longer Active Lorene Durbin VITAMIN D 1000 UNIT TABS 1 PO Daily CHOLECALCIFEROL 92057194785 Active Lorene Durbin ZOCOR 20 MG TABS 1 PO DAILY SIMVASTATIN 01898953773 Active Elizabeth Dixon FINASTERIDE 5 MG TABS 1 PO DAILY FINASTERIDE 54284986078 Active Lorene Durbin NAMENDA 10 MG TABS 1 PO BID MEMANTINE HCL 74077109602 Active Elizabeth Dixon KENALOG 0.1 % CREA apply to affected areas BID TRIAMCINOLONE ACETONIDE No Longer Active Lorene Durbin DILANTIN 100 MG CAP 1 PO at 7am and 2 pm and 2 PO at HS PHENYTOIN SODIUM EXTENDED 36331394547 No Longer Active Lorene Durbin PREDNISONE 20 MG TAB 1 PO daily for 7 days then resume 5mg dosing as previous PREDNISONE 80261077125 No Longer Active Lorene Meryl Durbin AUGMENTIN 500-125 MG TAB 1 PO BID AMOXICILLIN-POT CLAVULANATE 77439247585 No Longer Active Lorene Meryl Durbin OCUFLOX 0.3 % SOLN 2 drops in right ear TID for 7 days OFLOXACIN 50143078955 No Longer Active Lorene Meryl Durbin PREDNISONE 20 MG TAB 1 PO daily for 7 days PREDNISONE 46168916175 No Longer Active Lorene Meryl Durbin KENALOG 0.1 % CREA apply to affected areas BID TRIAMCINOLONE ACETONIDE No Longer Active Lorene Meryl Durbin ATARAX 25 MG TAB 1 PO Q6hrs prn itching HYDROXYZINE HCL No Longer Active Lorene Meryl Durbin DETROL LA 4 MG CP24 1 PO daily TOLTERODINE TARTRATE 24588411767 No Longer Active Lorene Meryl Durbin FINASTERIDE 5 MG TABS 1 PO BID FINASTERIDE 21921561890 No Longer Active Lorenedada Durbin BACTRIM DS 800-160 MG TAB 1 PO MWF TRIMETHOPRIM- SULFAMETHOXAZOLE 05977945535 No Longer Active Lorene Meryl Durbin NYSTATIN POWD Apply Topically to groin BID for gaulding NYSTATIN 00707948622 No Longer Active Lorene Meryl Durbin TERBINAFINE HCL 1 % CREA Apply to affected area BID TERBINAFINE HCL 05844023575 No Longer Active Lorene Meryl Durbin CALTRATE 600 PLUS-VIT D 600-200 MG-IU TABS 1 PO BID CALCIUM-VITAMIN D Active Elizabeth Dixon VALTREX 1 GM TAB 1 PO BID VALACYCLOVIR HCL 67200755672 No Longer Active Lorene Meryl Durbin TESSALON 200 MG CAPS 1 PO TID prn cough BENZONATATE 32510998045 No Longer Active Elizabethjenn Dixon PREDNISONE 10 MG TABS 1 PO QD PREDNISONE 73474201210 No Longer Active Lorene Durbin PAXIL 20 MG TAB 1 PO DAILY PAROXETINE HCL 38741081226 Active Elizabeth Dixon TESSALON 200 MG CAPS 1 PO TID prn cough BENZONATATE 74392589883 No Longer Active Lorenedada Durbin FLOMAX 0.4 MG CAPS 1 PO QD for urinary retention TAMSULOSIN HCL 33316246396 Active Elizabeth Lizarragatis OMEPRAZOLE 40 MG CPDR 1 PO QD OMEPRAZOLE 01078177087 Active Elizabeth Lizarragatis FOLIC ACID 1 MG TABS 1 PO QD FOLIC ACID 77866174295 Active Elizabeth Dixon FERROUS SULFATE 325 (65 FE) MG TABS 1 PO BID FERROUS SULFATE 79165180886 Active Elizabeth Dixon COLACE 100 MG CAPS 1 PO BID prevent constipation DOCUSATE SODIUM 41259720118 Active Elizabeth Dixon ACETAMINOPHEN 325 MG TABS 2 PO Q 4hrs PRN pain or fever ACETAMINOPHEN 34689227175 Active Lorenedada Durbin IMURAN 50 MG TABS 3 po daily AZATHIOPRINE 75346046507 No Longer Active Lorenedada Durbin TOVIAZ 4 MG [id number] 1 po daily FESOTERODINE FUMARATE 80939910885 No Longer Active Lorenedada Durbin COREG 12.5 MG TABS 1 po bid CARVEDILOL 22743672385 No Longer Active Lorene Durbin WAVESENSE PRESTO TEST STRP Check BS Daily DX: DIABETES GLUCOSE BLOOD 67356813361 No Longer Active Lorene Durbin OMEPRAZOLE 40 MG CPDR 1 PO Daily OMEPRAZOLE 13337738494 No Longer Active Lorenedada Durbin FLOMAX 0.4 MG CAPS 1 PO Daily TAMSULOSIN HCL 05658710628 No Longer Active Lorene Meryl Durbin MEPRON 750 MG/5ML SUSP 5 ml PO BID ATOVAQUONE 90302952839 No Longer Active Lorene Meryl Durbin PREDNISONE 5 MG TABS 2 po daily PREDNISONE 88761577908 No Longer Active Lorene Meryl Durbin TERAZOSIN HCL 2 MG CAPS 1 PO qhs TERAZOSIN HCL 69464943720 No Longer Active Lorene Meryl Durbin VITAMIN D 1000 UNIT TABS 1 PO Daily CHOLECALCIFEROL 05956869182 No Longer Active Lorene Meryl Durbin PEPCID 20 MG TAB 1 PO daily FAMOTIDINE 30204267424 No Longer Active Lorene Meryl Durbin VITAMIN B-12 100 MCG TABS 1 po daily CYANOCOBALAMIN 93327823712 No Longer Active Lorene Meryl Durbin IRON 325 (65 FE) MG TABS 1 PO daily FERROUS SULFATE 70228733567 No Longer Active Lorene Meryl Durbin CALCIUM 600 1500 MG TABS 1 PO QAM and 2 PO QHS CALCIUM CARBONATE 75752761943 No Longer Active Lorene Meryl Durbin MULTIVITAMINS TABS 1 po daily MULTIPLE VITAMIN 95583774247 No Longer Active Lorene Meryl Durbin FISH OIL 1000 MG CAPS 1 po daily OMEGA-3 FATTY ACIDS 14416683646 No Longer Active Lorene Meryl Durbin ASPIRIN 81 MG TAB 1 PO QD ASPIRIN 70868234081 No Longer Active Lorene Meryl Durbin NORVASC 5 MG TAB 1 PO Daily AMLODIPINE BESYLATE 62130799738 No Longer Active Lorene Meryl Durbin CLOBETASOL PROPIONATE 0.05 % CREA Apply small amount to affected areas on arms BID CLOBETASOL PROPIONATE 56368801199 No Longer Active Lorene Meryl Durbin LOTRISONE 0.05-1 % CREAM Apply a small amount to affected area on back BID CLOTRIMAZOLE-BETAMETHASONE 32535840430 No Longer Active Lorene Meryl Durbin CYCLOPHOSPHAMIDE 25 MG TABS take 5 tablets once daily CYCLOPHOSPHAMIDE 44896628692 No Longer Active Lorene Meryl Durbin PERCOCET 5-325 MG TAB 1 PO Q 6 hours OXYCODONE- ACETAMINOPHEN 96182219690 No Longer Active Lorene Meryl Durbin VALTREX 1 GM TAB 1 PO BID VALACYCLOVIR HCL 65626659744 No Longer Active Lorene Meryl Durbin ACCUPRIL 10 MG TABS 1 po daily QUINAPRIL HCL 18024198624 No Longer Active Lorene Meryl Durbin COZAAR 25 MG TAB 1 PO daily LOSARTAN POTASSIUM 67029435843 No Longer Active Elizabeth Dixon MAGNESIUM OXIDE 400 MG CAPS 1 PO daily MAGNESIUM OXIDE 46536189135 No Longer Active Lorene Meryl Durbin LOTRISONE 0.05-1 % CREAM Apply to affected areas twice daily prn CLOTRIMAZOLE-BETAMETHASONE 29409464979 No Longer Active Lorenedada Durbin FERROUS SULFATE 100 MG 1 PO daily FERROUS SULFATE 100 MG No Longer Active Lorene eMryl Durbin QUALAQUIN 324 MG CAPS 1 PO QHS prn QUININE SULFATE 43794786327 No Longer Active Lorene Meryl Durbin ROBITUSSIN A-C 10-100 MG/5ML SYRUP 1 teaspoon PO Q 4-6 hr prn ROBITUSSIN A-C 10-100 MG/5ML SYRUP 87598062494 No Longer Active Lorene Meryl Durbin BIAXIN XL PAC 500 MG TB24 2 pills at same time daily for 7 days CLARITHROMYCIN 71309729278 No Longer Active Lorene Meryl Durbin TESSALON 200 MG CAPS 1 PO TID prn cough BENZONATATE 84753314397 No Longer Active Lorene Meryl Durbin ROBITUSSIN A-C 10-100 MG/5ML SYRUP 1 teaspoon PO Q 4-6 hr prn ROBITUSSIN A-C 10-100 MG/5ML SYRUP 78485040915 No Longer Active Lorene Meryl Durbin BIAXIN XL PAC 500 MG TB24 2 pills at same time daily for 7 days CLARITHROMYCIN 93084392677 No Longer Active Lorene Meryl Durbin KEFLEX 500 MG CAP 1 PO TID for 7 days CEPHALEXIN 46842186432 No Longer Active Lorene Meryl Durbin FERROUS SULFATE 325 (65 FE) MG TABS 1 PO daily FERROUS SULFATE 04825954429 No Longer Active Lorene Meryl Durbin CINNAMON 500 MG CAPS 1 po daily CINNAMON 13444087886 No Longer Active Lorene Meryl Durbin XANAX 0.25 MG TABS 1 po q 4-6 hrs prn ALPRAZOLAM 39031759742 No Longer Active Lorene Meryl Durbin TRIAMCINOLONE ACETONIDE 0.1 % OINT Apply as directed TRIAMCINOLONE ACETONIDE 89696857544 No Longer Active Lorene Meryl Durbin KERALAC 50 % GEL as needed UREA 00495536467 No Longer Active Lorene Meryl Durbin AMITRIPTYLINE HCL 25 MG TAB 1 PO daily at night prn AMITRIPTYLINE HCL 39380009470 No Longer Active Lorene Meryl Durbin ZOCOR 5 MG TABS 1 PO QOD (on hold) SIMVASTATIN 04810017972 No Longer Active Lorene Meryl Durbin VIAGRA 50 MG TABS prn SILDENAFIL CITRATE 84276929719 No Longer Active Lorene Meryl Durbin DARVOCET-N 100 100-650 MG TABS 1 po q 6 hrs. prn pain PROPOXYPHENE N-APAP 03751269381 No Longer Active Lorenedada Durbin CYCLOBENZAPRINE HCL 10 MG TABS 1 po q 12 hrs. prn CYCLOBENZAPRINE HCL 17771263170 No Longer Active Lorene Meryl Durbin LORTAB 5 5-500 MG TABS 1 as needed HYDROCODONE- ACETAMINOPHEN 85453169108 No Longer Active Lorene Meryl Durbin ALBUTEROL 90 MCG/ACT AERS 2 puffs Q4-6hrs prn ALBUTEROL 79809363060 No Longer Active Lorene Meryl Durbin ROBITUSSIN A-C 10-100 MG/5ML SYRUP 5cc PO Q 4-6 hr prn ROBITUSSIN A-C 10-100 MG/5ML SYRUP 93774575530 No Longer Active Lorenedada Durbin ADVAIR DISKUS 100-50 MCG/DOSE MISC 1 puff BID FLUTICASONE-SALMETEROL 71544989820 No Longer Active Lorene Meryl Durbin AUGMENTIN 500-125 MG TABS 1 PO BID AMOXICILLIN-POT CLAVULANATE 65875811910 No Longer Active Lorene Meryl Durbin PLAVIX 75 MG TABS 1 po daily CLOPIDOGREL BISULFATE 78070604182 No Longer Active Lorene Meryl Durbin AMOXIL 500 MG TABS 1 PO TID AMOXICILLIN 00025057988 No Longer Active Lorenedada Durbin Immunizations Vaccine [...] 10*6/mm3 Encounters Code Encounter Date Provider Facility CPT-69176 Ofc Vst, Est Level III 16:04:23 CDT Lorene MerylJamison Levinener, DO, FACP CPT-81601 Ofc Vst, Est Level III 19:00:13 [employer] Lorenedada Durbin, DO, FACP CPT-29641 Ofc Vst, Est Level III 21:20:47 CDT Lorene Meryl Durbin, DO, FACP CPT-68002 Ofc Vst, Est Level III 20:32:44 [employer] Lorene Durbin, DO, FACP CPT-56118 Ofc Vst, Est Level III 14:43:31 [employer] Lorene Durbin, DO, FACP CPT-16602 Ofc Vst, Est Level III 20:01:57 [employer] Lorene Durbin, DO, FACP CPT-56701 Ofc Vst, Est Level III 16:57:33 CDT Lorene Durbin, DO, FACP CPT-98635 Ofc Vst, Est Level III 14:43:50 CDT Lorenedada Durbin, DO, FACP CPT-61978 Ofc Vst, Est Level III 15:02:07 CDT Lorenedada Durbin, DO, FACP CPT-90928 Ofc Vst, Est Level III 14:44:46 CDT Lorene Durbin, DO, FACP CPT-34563 Ofc Vst, Est Level IV 16:13:39 CDT Lorenedada Durbin, DO, FACP CPT-09009 Ofc Vst, Est Level III 11:48:41 CDT Lorene Meryl Sorensen Durbin, DO, FACP CPT-42345 Ofc Vst, Est Level III 15:46:15 CDT Lorene Meryl Pedersoni S Durbin, DO, FACP CPT-67680 Ofc Vst, Est Level IV 15:57:50 CDT Lorene Meryl Paulson S Durbin, DO, FACP CPT-78862 Ofc Vst, Est Level III 16:05:36 [employer] Lorene Meryl Pedersoni S Durbin, DO, FACP CPT-17800 Ofc Vst, Est Level IV 15:52:15 [employer] Lorene Meryl Pedersoni S Durbin, DO, FACP CPT-62159 Ofc Vst, Est Level III 15:08:06 CDT Lorene Meryl Sorensen Durbin, DO, FACP CPT-01196 Ofc Vst, Est Level IV 15:06:29 CDT Lorene Meryl Pedersoni S Durbin, DO, FACP CPT-06207 Ofc Vst, Est Level IV 13:29:16 CDT Lorene Meryl Paulson S Durbin, DO, FACP CPT-56023 Ofc Vst, Est Level V 13:50:55 [employer] Lorene Meryl Paulson S Durbin, DO, FACP CPT-51033 Ofc Vst, Est Level IV 11:10:14 [employer] Lorene Meryl Paulson S Durbin, DO, FACP CPT-88205 Ofc Vst, Est Level III 15:28:22 CDT Lorene Meryl Paulson S Durbin, DO, FACP CPT-03254 Ofc Vst, New Level IV 14:17:27 CDT Lorene Meryl Paulson S Ramakrishna, DO, FACP CPT-30750 Ofc Vst, New Level II 14:17:27 CDT Lorenedada Sorensen Durbin, DO, FACP CPT-73269 Ofc Vst, Est Level IV 10:59:16 CDT Lorene Meryl Sorensen Durbin, DO, FACP CPT-97846 Ofc Vst, Est Level II 16:12:29 CDT Lorene Meryl Sorensen Durbin, DO, FACP CPT-62694 Ofc Vst, Est Level IV 10:53:48 CDT Lorene Meryl Sorensen Ramakrishna, DO, FACP CPT-69372 Office Consult, Level III 11:11:19 [employer] Lorene Sorensen Ramakrishna, DO, FACP CPT-83870 Ofc Vst, Est Level IV 11:12:23 CDT Lorenedada Sorensen Ramakrishna, DO, FACP CPT-91412 Ofc Vst, Est Level IV 11:46:11 CDT Lorenedada Sorensen Ramakrishna, DO, FACP CPT-24728 Ofc Vst, Est Level IV 15:36:14 CDT Lorene Meryl Sorensen Durbin, DO, FACP CPT-18059 Ofc Vst, Est Level IV 11:36:09 [employer] Lorene Sorensen Ramakrishna, DO, FACP CPT-41557 Ofc Vst, Est Level IV 16:28:10 CDT Lorene Meryl Sorensen Durbin, DO, FACP CPT-52443 Ofc Vst, Est Level IV 15:52:30 CDT Lorene Meryl Sorensen Durbin, DO, FACP CPT-13408 Ofc Vst, Est Level III 11:48:57 CDT Lorene Meryl Sorensen Durbin, DO, FACP CPT-97425 Ofc Vst, Est Level IV 09:15:20 [employer] Lorene Meryl Sorensen Ramakrishna, DO, FACP CPT-27824 Ofc Vst, Est Level IV 16:43:12 [employer] Lorenedada Sheth Ramakrishna Lorene Edu Ramakrishna, DO, FACP CPT-32295 Ofc Vst, Est Level III 14:52:39 CDT Lorene Sheth Durbin Lorene Edu Ramakrishna, DO, FACP CPT-29532 Ofc Vst, Est Level IV 11:27:37 CDT Lorene Meryl Levinener Lorene Sorensen Ramakrishna, DO, FACP CPT-53827 Ofc Vst, Est Level III 09:53:01 [employer] Lorenedada Sheth Ramakrishna Durbin, DO, FACP CPT-33627 Ofc Vst, Est Level IV 09:49:25 CDT Lorenedada Sheth Ramakrishna Paulson Edu Ramakrishna, DO, FACP CPT-69166 Ofc Vst, Est Level IV 11:33:29 CDT Lorene Meryl Durbin Lorene Sorensen Ramakrishna, DO, FACP CPT-64270 Ofc Vst, Est Level IV 14:11:50 [employer] Lorene Durbin [facility] [place] CPT-76329 Ofc Vst, Est Level IV 17:26:08 [employer] Lorene Durbin [facility] [place] CPT-64432 Ofc Vst, Est Level IV 10:40:42 [employer] Lorene Durbin [facility] [place] CPT-50307 Ofc Vst, Est Level IV 15:05:22 CDT Lorene Meryl Durbin [facility] [place] CPT-31717 Ofc Vst, Est Level IV 14:42:32 CDT Lorenedada Durbin [facility] [place] CPT-99976 Ofc Vst, Est Level III 16:05:07 CDT Lorene Durbin [facility] [place] CPT-94257 Ofc Vst, Est Level V 17:24:06 CDT Lorene Meryl Durbin [facility] [place] CPT-75661 Ofc Vst, Est Level IV 16:02:46 CDT Lorene Meryl Ramakrishna [facility] [place] CPT-43813 Ofc Vst, Est Level III 12:50:41 [employer] Lorene Meryl Ramakrishna [facility] [place] CPT-19766 Ofc Vst, Est Level II 12:09:58 [employer] Lorene Merylgladys Durbin [facility] [place] CPT-65601 Ofc Vst, Est Level IV 09:31:48 [employer] Lorenedada Durbin [facility] [place] CPT-95813 Ofc Vst, Est Level III 10:36:21 [employer] Lorene Merylgladys Durbin [facility] [place] CPT-13045 Ofc Vst, Est Level IV 15:48:05 CDT Lorene Meryl Durbin [facility] [place] CPT-85587 Ofc Vst, Est Level III 11:58:31 CDT Lorene Merylgladys Durbin [facility] [place] CPT-48005 Ofc Vst, Est Level IV 18:14:00 CDT Lorene Meryl Ramakrishna [facility] [place] CPT-40554 Ofc Vst, New Level III 19:15:23 [employer] Lorenedada Durbin [facility] [place] Procedures Code Procedure Name Date Entry Date Standard Description CPT-G0439 Medicare Annual Wellness Visit 14:14:39 CDT CPT-G8445 E-Prescribing Not sent due to no medication given 21:20: 47 CDT CPT-G8445 E-Prescribing Not sent due to no medication given 20:32: 44 [employer] CPT-G8445 E-Prescribing Not sent due to no medication given 14:43: 31 [employer] CPT-G8445 E-Prescribing Not sent due to no medication given 20:01: 57 [employer] CPT-G8445 E-Prescribing Not sent due to no medication given 16:57: 33 CDT CPT-G8445 E-Prescribing Not sent due to no medication given 14:43: 50 CDT CPT-G8445 E-Prescribing Not sent due to no medication given 15:02: 07 CDT CPT-G8443 E-Prescribing Medication Sent 14:44:46 CDT CPT-G8443 E-Prescribing Medication Sent 16:13:39 CDT CPT-64672 Biopsy, skin/subcut/mucous membrane; sngl lsn 15:46:15 CDT CPT-G8445 E-Prescribing Not sent due to no medication given 14:23: 32 CDT CPT-G0438 Medicare Annual Wellness Visit Initial 14:23:32 CDT CPT-G8445 E-Prescribing Not sent due to no medication given 15:57: 50 CDT CPT-G8443 E-Prescribing Medication Sent 15:52:15 [employer] CPT-G8443 E-Prescribing Medication Sent 15:08:06 CDT CPT-17532 Injection, Pneumovax 16:28:10 CDT CPT-G8443 E-Prescribing Medication Sent 15:52:30 CDT CPT-65828 EKG w/ Interpretation 17:24:06 CDT CPT-25838 EKG w/ Interpretation 11:58:31 CDT
--- OUTSIDE RECORDS SUMMARY | 2017-12-16 05:21 | XMS REPORT | Clinical Summary ---
Author Author User, [employer] Lorene Durbin DO, FACP Address Unknown [...] MG TABS 1 PO QD FOLIC ACID 95965999064 No Longer Active Lorene Durbin TRAZODONE HCL 100 MG TABS 1 PO AT HS TRAZODONE HCL 99493500657 Active Lorenedada Durbin PULMICORT 0.5 MG/2ML SUSP I VIAL-INHALE ORALLY DAILY BUDESONIDE 25189477338 Active Lorenedada Durbin PREDNISONE 5 MG TABS 1 PO DAILY PREDNISONE 50546688220 Active Lorenedada Durbin NOVOLOG FLEXPEN 100 UNIT/ML SOPN INJECT 3 SQ BEFORE MEALS INSULIN ASPART 55449814636 Active Lorenedada Durbin IPRATROPIUM-ALBUTEROL 0.5-2.5 (3) MG/3ML SOLN 1 VIAL INHALE ORALLY TID 09/17 IPRATROPIUM-ALBUTEROL 38242555677 Active Lorenedada Durbin DEPAKOTE SPRINKLES 125 MG CPSP 1 TIME DAILY DIVALPROEX SODIUM 84528613830 Active Lorenedada Durbin EXELON 4.6 MG/24HR PT24 APPLY PATCH DAILY RIVASTIGMINE 01786993577 Active Lorene Durbin FOLIC ACID 1 MG TABS 1 PO DAILY FOLIC ACID 46406324872 Active Lorenedada Durbin MELATONIN 3 MG TABS 1 PO AT HS FOR INSOMNIA MELATONIN 97918227823 Active Lorenedada Durbin MIRALAX POWD 17 GRAMS PO BID POLYETHYLENE GLYCOL 3350 01760949491 Active Lorenedada Durbin NORVASC 10 MG TABS 1 PO DAILY AMLODIPINE BESYLATE 12051611055 Active Lorenedada Durbin CELEXA 20 MG TABS 1 PO DAILY CITALOPRAM HYDROBROMIDE 28188046787 Active Lorene Meryl Durbin PAXIL 20 MG TAB 1 PO DAILY PAROXETINE HCL 41233359093 No Longer Active Lorene Meryl Durbin BISACODYL LAXATIVE 10 MG SUPP 1 NM QD PRN constipation BISACODYL 88221863863 No Longer Active Lorene Meryl Durbin COREG 6.25 MG TABS 1 PO BID CARVEDILOL 65180050500 Active Lorene Meryl Durbin BENADRYL 25 MG CAP 1 PO TID prn DIPHENHYDRAMINE HCL 84098100239 No Longer Active Lorene Meryl Durbin LACTULOSE SOLN 30 ML PO BID PRN Constipation LACTULOSE SOLN 82979361554 No Longer Active Lorene Meryl Durbin LASIX 40 MG TAB 1 PO MWF FUROSEMIDE 44132470126 No Longer Active Lorene Meryl Durbin VITAMIN D 1000 UNIT TABS 1 PO Daily CHOLECALCIFEROL 97210386105 Active Lorene Meryl Durbin ZOCOR 20 MG TABS 1 PO DAILY SIMVASTATIN 59974544467 Active Elizabeth Dixon FINASTERIDE 5 MG TABS 1 PO DAILY FINASTERIDE 51983964908 Active Lorene Meryl Durbin NAMENDA 10 MG TABS 1 PO BID MEMANTINE HCL 42680317772 Active Elizabeth Dixon KENALOG 0.1 % CREA apply to affected areas BID TRIAMCINOLONE ACETONIDE No Longer Active Lorene Meryl Durbin DILANTIN 100 MG CAP 1 PO at 7am and 2 pm and 2 PO at HS PHENYTOIN SODIUM EXTENDED 42708063009 No Longer Active Lorene Meryl Durbin PREDNISONE 20 MG TAB 1 PO daily for 7 days then resume 5mg dosing as previous PREDNISONE 45458382921 No Longer Active Lorene Meryl Durbin AUGMENTIN 500-125 MG TAB 1 PO BID AMOXICILLIN-POT CLAVULANATE 89750303022 No Longer Active Lorene Meryl Durbin OCUFLOX 0.3 % SOLN 2 drops in right ear TID for 7 days OFLOXACIN 96588304573 No Longer Active Lorene Meryl Durbin PREDNISONE 20 MG TAB 1 PO daily for 7 days PREDNISONE 17379894308 No Longer Active Lorene Meryl Durbin KENALOG 0.1 % CREA apply to affected areas BID TRIAMCINOLONE ACETONIDE No Longer Active Lorene Meryl Durbin ATARAX 25 MG TAB 1 PO Q6hrs prn itching HYDROXYZINE HCL No Longer Active Lorene Meryl Durbin DETROL LA 4 MG CP24 1 PO daily TOLTERODINE TARTRATE 15029782188 No Longer Active Lorene Meryl Durbin FINASTERIDE 5 MG TABS 1 PO BID FINASTERIDE 20048317234 No Longer Active Lorene Meryl Durbin BACTRIM DS 800-160 MG TAB 1 PO MWF TRIMETHOPRIM- SULFAMETHOXAZOLE 14888815535 No Longer Active Lorenedada Durbin NYSTATIN POWD Apply Topically to groin BID for gaulding NYSTATIN 12025231424 No Longer Active Lorenedada Durbin TERBINAFINE HCL 1 % CREA Apply to affected area BID TERBINAFINE HCL 18369619171 No Longer Active Lorene Meryl Durbin CALTRATE 600 PLUS-VIT D 600-200 MG-IU TABS 1 PO BID CALCIUM-VITAMIN D Active Elizabeth Dixon VALTREX 1 GM TAB 1 PO BID VALACYCLOVIR HCL 51575630173 No Longer Active Lorene Meryl Durbin TESSALON 200 MG CAPS 1 PO TID prn cough BENZONATATE 97939288557 No Longer Active Elizabeth Dixon PREDNISONE 10 MG TABS 1 PO QD PREDNISONE 31324573253 No Longer Active Lorene Meryl Durbin TESSALON 200 MG CAPS 1 PO TID prn cough BENZONATATE 19452829877 No Longer Active Lorene Meryl Durbin FLOMAX 0.4 MG CAPS 1 PO QD for urinary retention TAMSULOSIN HCL 25776599779 Active Elizabeth Dixon OMEPRAZOLE 40 MG CPDR 1 PO QD OMEPRAZOLE 96645028151 Active Elizabeth Dixon FERROUS SULFATE 325 (65 FE) MG TABS 1 PO BID FERROUS SULFATE 51722475350 Active Elizabeth Dixon COLACE 100 MG CAPS 1 PO BID prevent constipation DOCUSATE SODIUM 92081650586 Active Elizabeth Dixon ACETAMINOPHEN 325 MG TABS 2 PO Q 4hrs PRN pain or fever ACETAMINOPHEN 85490278439 Active Lorene Meryl Durbin IMURAN 50 MG TABS 3 po daily AZATHIOPRINE 91412797503 No Longer Active Lorene Meryl Durbin TOVIAZ 4 MG CX42M-AYI 1 po daily FESOTERODINE FUMARATE 36642362716 No Longer Active Lorene Meryl Durbin COREG 12.5 MG TABS 1 po bid CARVEDILOL 25509674539 No Longer Active Lorene Meryl Durbin WAVESENSE PRESTO TEST STRP Check BS Daily DX: DIABETES GLUCOSE BLOOD 73857534603 No Longer Active Lorene Meryl Durbin OMEPRAZOLE 40 MG CPDR 1 PO Daily OMEPRAZOLE 83485306909 No Longer Active Loreen Meryl Durbin FLOMAX 0.4 MG CAPS 1 PO Daily TAMSULOSIN HCL 55544154938 No Longer Active Lorene Meryl Durbin MEPRON 750 MG/5ML SUSP 5 ml PO BID ATOVAQUONE 99497814144 No Longer Active Lorene Meryl Durbin PREDNISONE 5 MG TABS 2 po daily PREDNISONE 18095792390 No Longer Active Lorene Meryl Durbin TERAZOSIN HCL 2 MG CAPS 1 PO qhs TERAZOSIN HCL 95372977306 No Longer Active Lorene Meryl Durbin VITAMIN D 1000 UNIT TABS 1 PO Daily CHOLECALCIFEROL 65366532613 No Longer Active Lorene Meryl Durbin PEPCID 20 MG TAB 1 PO daily FAMOTIDINE 61373292219 No Longer Active Lorene Meryl Durbin VITAMIN B-12 100 MCG TABS 1 po daily CYANOCOBALAMIN 82173324591 No Longer Active Lorene Meryl Durbin IRON 325 (65 FE) MG TABS 1 PO daily FERROUS SULFATE 30580872049 No Longer Active Lorene Meryl Durbin CALCIUM 600 1500 MG TABS 1 PO QAM and 2 PO QHS CALCIUM CARBONATE 16264134754 No Longer Active Lorene Meryl Durbin MULTIVITAMINS TABS 1 po daily MULTIPLE VITAMIN 60578600362 No Longer Active Lorene Meryl Durbin FISH OIL 1000 MG CAPS 1 po daily OMEGA-3 FATTY ACIDS 91021166214 No Longer Active Lorene Meryl Durbin ASPIRIN 81 MG TAB 1 PO QD ASPIRIN 94104929442 No Longer Active Lorene Meryl Durbin NORVASC 5 MG TAB 1 PO Daily AMLODIPINE BESYLATE 27817827238 No Longer Active Lorene Meryl Durbin CLOBETASOL PROPIONATE 0.05 % CREA Apply small amount to affected areas on arms BID CLOBETASOL PROPIONATE 05099258892 No Longer Active Lorene Meryl Durbin LOTRISONE 0.05-1 % CREAM Apply a small amount to affected area on back BID CLOTRIMAZOLE-BETAMETHASONE 39365985695 No Longer Active Lorene Meryl Durbin CYCLOPHOSPHAMIDE 25 MG TABS take 5 tablets once daily CYCLOPHOSPHAMIDE 49220987194 No Longer Active Lorene Meryl Durbin PERCOCET 5-325 MG TAB 1 PO Q 6 hours OXYCODONE- ACETAMINOPHEN 95858527107 No Longer Active Lorene Meryl Durbin VALTREX 1 GM TAB 1 PO BID VALACYCLOVIR HCL 65526874032 No Longer Active Lorene Meryl Durbin ACCUPRIL 10 MG TABS 1 po daily QUINAPRIL HCL 95222551743 No Longer Active Lorene Meryl Durbin COZAAR 25 MG TAB 1 PO daily LOSARTAN POTASSIUM 48361367961 No Longer Active Elizabeth Dixon MAGNESIUM OXIDE 400 MG CAPS 1 PO daily MAGNESIUM OXIDE 57323139218 No Longer Active Lorene Meryl Durbin LOTRISONE 0.05-1 % CREAM Apply to affected areas twice daily prn CLOTRIMAZOLE-BETAMETHASONE 58246138441 No Longer Active Lorene Meryl Durbin FERROUS SULFATE 100 MG 1 PO daily FERROUS SULFATE 100 MG No Longer Active Lorene Meryl Durbin QUALAQUIN 324 MG CAPS 1 PO QHS prn QUININE SULFATE 89084607916 No Longer Active Lorene Meryl Durbin ROBITUSSIN A-C 10-100 MG/5ML SYRUP 1 teaspoon PO Q 4-6 hr prn ROBITUSSIN A-C 10-100 MG/5ML SYRUP 22043380718 No Longer Active Lorene Meryl Durbin BIAXIN XL PAC 500 MG TB24 2 pills at same time daily for 7 days CLARITHROMYCIN 82716982337 No Longer Active Lorene Meryl Durbin TESSALON 200 MG CAPS 1 PO TID prn cough BENZONATATE 62299706139 No Longer Active Lorene Meryl Durbin ROBITUSSIN A-C 10-100 MG/5ML SYRUP 1 teaspoon PO Q 4-6 hr prn ROBITUSSIN A-C 10-100 MG/5ML SYRUP 67875364745 No Longer Active Lorene Meryl Durbin BIAXIN XL PAC 500 MG TB24 2 pills at same time daily for 7 days CLARITHROMYCIN 19141541416 No Longer Active Lorene Meryl Durbin KEFLEX 500 MG CAP 1 PO TID for 7 days CEPHALEXIN 81855158216 No Longer Active Lorene Meryl Durbin FERROUS SULFATE 325 (65 FE) MG TABS 1 PO daily FERROUS SULFATE 43295872652 No Longer Active Lorene Meryl Durbin CINNAMON 500 MG CAPS 1 po daily CINNAMON 20729090818 No Longer Active Lorene Meryl Durbin XANAX 0.25 MG TABS 1 po q 4-6 hrs prn ALPRAZOLAM 81776046349 No Longer Active Lorene Meryl Durbin TRIAMCINOLONE ACETONIDE 0.1 % OINT Apply as directed TRIAMCINOLONE ACETONIDE 85460399981 No Longer Active Lorene Meryl Durbin KERALAC 50 % GEL as needed UREA 79683144744 No Longer Active Lorene Meryl Durbin AMITRIPTYLINE HCL 25 MG TAB 1 PO daily at night prn AMITRIPTYLINE HCL 66484391169 No Longer Active Lorene Meryl Durbin ZOCOR 5 MG TABS 1 PO QOD (on hold) SIMVASTATIN 99370973488 No Longer Active Lorene Meryl Durbin VIAGRA 50 MG TABS prn SILDENAFIL CITRATE 46936801119 No Longer Active Lorene Meryl Durbin DARVOCET-N 100 100-650 MG TABS 1 po q 6 hrs. prn pain PROPOXYPHENE N-APAP 18201393392 No Longer Active Lorene Meryl Durbin CYCLOBENZAPRINE HCL 10 MG TABS 1 po q 12 hrs. prn CYCLOBENZAPRINE HCL 25506315107 No Longer Active Lorene Meryl Durbin LORTAB 5 5-500 MG TABS 1 as needed HYDROCODONE- ACETAMINOPHEN 04587275064 No Longer Active Lorenedada Durbin ALBUTEROL 90 MCG/ACT AERS 2 puffs Q4-6hrs prn ALBUTEROL 50355380944 No Longer Active Lorenedada Durbin ROBITUSSIN A-C 10-100 MG/5ML SYRUP 5cc PO Q 4-6 hr prn ROBITUSSIN A-C 10-100 MG/5ML SYRUP 13844299976 No Longer Active Lorene Meryl Durbin ADVAIR DISKUS 100-50 MCG/DOSE MISC 1 puff BID FLUTICASONE-SALMETEROL 21260822892 No Longer Active Lorenedada Durbin AUGMENTIN 500-125 MG TABS 1 PO BID AMOXICILLIN-POT CLAVULANATE 33301405601 No Longer Active Lorenedada Durbin PLAVIX 75 MG TABS 1 po daily CLOPIDOGREL BISULFATE 12853553197 No Longer Active Lorene Meryl Durbin AMOXIL 500 MG TABS 1 PO TID AMOXICILLIN 24707423582 No Longer Active Lorene Durbin Immunizations Vaccine [...] Update: CBC,BMP [facility] - Chemistry glucose, plasma fasting 133 mg/dL Estimated Glomerular Filtration Rate (calc) 37 mL/min/1.73m2 anion gap, serum 10 sodium, serum 139 mmol/L carbon dioxide, venous blood 31.0 mmol/L creatinine, serum 1.9 mg/dL urea nitrogen, blood 27 mg/dL calcium, serum 9.4 mg/dL chloride, serum 103 mmol/L potassium, serum 5.0 mmol/L Clinical Lists Update: CBC,BMP [facility] - Hematology hematocrit, blood 43 % hemoglobin, blood 13.2 g/dL platelet count 137 10*3/mm3 erythrocyte (RBC) count 4.32 10*6/mm3 leukocyte count, blood 8.6 10*3/mm3 red blood cell distribution width 14.0 % mean corpuscular volume, RBC 100 fL Clinical Lists Update: CBC,BMP,UA [facility] - Chemistry glucose, plasma fasting 150 mg/dL calcium, serum 9.3 mg/dL chloride, serum 104 mmol/L carbon dioxide, venous blood 30.0 mmol/L creatinine, serum 2.0 mg/dL potassium, serum 5.0 mmol/L sodium, serum 139 mmol/L urea nitrogen, blood 26 mg/dL Estimated Glomerular Filtration Rate (calc) 34 mL/min/1.73m2 anion gap, serum 10 Clinical Lists Update: CBC,BMP,UA [facility] - Hematology hematocrit, blood 44 % red blood cell distribution width 14.6 % mean corpuscular volume, RBC 101 fL leukocyte count, blood 8.9 10*3/mm3 erythrocyte (RBC) count 4.31 10*6/mm3 platelet count 145 10*3/mm3 hemoglobin, blood 13.4 g/dL Clinical Lists Update: CBC,BMP,UA [facility] - Urinalysis blood in urine (hemoglobin) by dipstick trace mucus on urinalysis none epithelial cells, urine none /[LPF] hyaline casts, [...] urine, semiquantitative (dipstick) neg Clinical Lists Update: CBC,CMP,FLP,TSH,HgA1c,Ferritin - Chemistry [...] % Clinical Lists Update: CBC,CMP,FLP.UA - Chemistry cholesterol, serum 167 mg/dL chloride, serum 106 [...] blood 41 % hemoglobin, blood 12.9 g/dL platelet count 137 10*3/mm3 erythrocyte (RBC) count 4.10 10*6/mm3 leukocyte count, blood 7.9 10*3/mm3 mean corpuscular volume, RBC 99 fL Clinical Lists Update: CBC,CMP,FLP.UA - Urinalysis specific gravity, urine 1.015 pH, urine, semiquantitative 7.0 nitrite, urine, semiquantitative neg ketones, urine, by test strip neg bilirubin, urine neg glucose, urine, semiquantitative neg protein, urine, semiquantitative (dipstick) neg blood in urine (hemoglobin) by dipstick trace urobilinogen, urine, semiquantitative (dipstick) 0.2 appearance, urine Clear Yellow WBC urine on microscopy none {Cells}/[HPF] RBC urine by microscopy none bacteria, urine microscopy none mucus on urinalysis none epithelial cells, urine 0-5 /[LPF] hyaline casts, urine none /[LPF] Clinical Lists Update: CMP - Chemistry Estimated [...] % Encounters Code Encounter Date Provider Facility CPT-03201 Ofc Vst, Est Level III 16:04:23 CDT Lorene Meryl Ramakrishna Durbin, DO, FACP CPT-81621 Ofc Vst, Est Level III 19:00:13 [employer] Lorene Durbin, DO, FACP CPT-38786 Ofc Vst, Est Level III 21:20:47 CDT Lorene Meryl Durbin, DO, FACP CPT-48951 Ofc Vst, Est Level III 20:32:44 [employer]GAL ASSISTANT Lorene Durbin, DO, FACP CPT-67471 Ofc Vst, Est Level III 14:43:31 [employer] ASSISTANT Lorene Durbin, DO, FACP CPT-55919 Ofc Vst, Est Level III 20:01:57 [employer] ASSISTANT Lorene Durbin, DO, FACP CPT-96945 Ofc Vst, Est Level III 16:57:33 CDT Lorenedada Durbin, DO, FACP CPT-56485 Ofc Vst, Est Level III 14:43:50 CDT Lorene Durbin, DO, FACP CPT-82639 Ofc Vst, Est Level III 15:02:07 CDT Lorenedada Durbin, DO, FACP CPT-67880 Ofc Vst, Est Level III 14:44:46 CDT Lorenedada Durbin, DO, FACP CPT-04441 Ofc Vst, Est Level IV 16:13:39 CDT Lorenedada Durbin, DO, FACP CPT-09636 Ofc Vst, Est Level III 11:48:41 CDT Lorenedada Sorensen Durbin, DO, FACP CPT-01287 Ofc Vst, Est Level III 15:46:15 CDT Lorene Meryl Sorensen Durbin, DO, FACP CPT-00993 Ofc Vst, Est Level IV 15:57:50 CDT Lorene Meryl Sorensen Durbin, DO, FACP CPT-75314 Ofc Vst, Est Level III 16:05:36 [employer] LEGAL ASSISTANT Lorene Sorensen Durbin, DO, FACP CPT-66689 Ofc Vst, Est Level IV 15:52:15 [employer] ASSISTANT Lorene Meryl Sorensen Durbin, DO, FACP CPT-04031 Ofc Vst, Est Level III 15:08:06 CDT Lorene Meryl Sorensen Durbin, DO, FACP CPT-83644 Ofc Vst, Est Level IV 15:06:29 CDT Lorene Meryl Sorensen Durbin, DO, FACP CPT-01557 Ofc Vst, Est Level IV 13:29:16 CDT Lorene Meryl Sorensen Durbin, DO, FACP CPT-25977 Ofc Vst, Est Level V 13:50:55 [employer]GAL ASSISTANT Lorene Sorensen Durbin, DO, FACP CPT-17157 Ofc Vst, Est Level IV 11:10:14 [employer]GAL ASSISTANT Lorene Meryl Sorensen Durbin, DO, FACP CPT-94312 Ofc Vst, Est Level III 15:28:22 CDT Lorene Meryl Sorensen Durbin, DO, FACP CPT-11506 Ofc Vst, New Level IV 14:17:27 CDT Lorenedada Sorensen Durbin, DO, FACP CPT-83768 Ofc Vst, New Level II 14:17:27 CDT Lorene Meryl Sorensen Durbin, DO, FACP CPT-84778 Ofc Vst, Est Level IV 10:59:16 CDT Lorene Meryl Sorensen Durbin, DO, FACP CPT-00839 Ofc Vst, Est Level II 16:12:29 CDT Lorene Meryl Sorensen Durbin, DO, FACP CPT-92789 Ofc Vst, Est Level IV 10:53:48 CDT Lorene Meryl Sorensen Durbin, DO, FACP CPT-76717 Office Consult, Level III 11:11:19 [employer] ASSISTANT Lorene Sorensen Ramakrishna, DO, FACP CPT-55758 Ofc Vst, Est Level IV 11:12:23 CDT Lorene Sorensen Ramakrishna, DO, FACP CPT-67036 Ofc Vst, Est Level IV 11:46:11 CDT Lorene Meryl Sorensen Ramakrishna, DO, FACP CPT-41184 Ofc Vst, Est Level IV 15:36:14 CDT Lorene Meryl Sorensen Durbin, DO, FACP CPT-71617 Ofc Vst, Est Level IV 11:36:09 [employer] LEGAL ASSISTANT Lorene Sorensen Durbin, DO, FACP CPT-28443 Ofc Vst, Est Level IV 16:28:10 CDT Lorene Meryl Sorensen Ramakrishna, DO, FACP CPT-23075 Ofc Vst, Est Level IV 15:52:30 CDT Lorene Meryl Sorensen Durbin, DO, FACP CPT-47116 Ofc Vst, Est Level III 11:48:57 CDT Lorene Meryl Sorensen Durbin, DO, FACP CPT-22726 Ofc Vst, Est Level IV 09:15:20 [employer] LEGAL ASSISTANT Lorene Meryl Sorensen Ramakrishna, DO, FACP CPT-02072 Ofc Vst, Est Level IV 16:43:12 [employer]GAL ASSISTANT Lorene Meryl Ramakrishna Lorene Edu Ramakrishna, DO, FACP CPT-89497 Ofc Vst, Est Level III 14:52:39 CDT Lorene Meryl Ramakrishna Lorene Edu Ramakrishna, DO, FACP CPT-76920 Ofc Vst, Est Level IV 11:27:37 CDT Lorene Meryl Ramakrishna Lorenedada Durbin, DO, FACP CPT-77125 Ofc Vst, Est Level III 09:53:01 [employer] ASSISTANT Lorene Meryl Ramakrishna Lorenedada Durbin, DO, FACP CPT-12560 Ofc Vst, Est Level IV 09:49:25 CDT Lorene Meryl Ramakrishna Durbin, DO, FACP CPT-53416 Ofc Vst, Est Level IV 11:33:29 CDT Lorene Meryl Ramakrishna Durbin, DO, FACP CPT-14963 Ofc Vst, Est Level IV 14:11:50 [employer]GAL ASSISTANT Lorene Durbin [facility] [place] CPT-55219 Ofc Vst, Est Level IV 17:26:08 [employer]GAL ASSISTANT Lorene Durbin [facility] [place] CPT-20869 Ofc Vst, Est Level IV 10:40:42 [employer] LEGAL ASSISTANT Lorene Durbin [facility] [place] CPT-15267 Ofc Vst, Est Level IV 15:05:[address] [facility] [place] CPT-03342 Ofc Vst, Est Level IV 14:42:[address] [facility] [place] CPT-03819 Ofc Vst, Est Level III 16:05:[address] [facility] [place] CPT-17634 Ofc Vst, Est Level V 17:24:[address] [facility] [place] CPT-80336 Ofc Vst, Est Level IV 16:02:46 CD[address] [facility] [place] CPT-78455 Ofc Vst, Est Level III 12:50:41 [employer]GAL ASSISTANT Lorene Meryl Durbin [facility] [place] CPT-18967 Ofc Vst, Est Level II 12:09:58 [employer] LEGAL ASSISTANT Lorene Meryl Durbin [facility] [place] CPT-34837 Ofc Vst, Est Level IV 09:31:48 [employer] LEGAL ASSISTANT Lorene Meryl Ramakrishna [facility] [place] CPT-42804 Ofc Vst, Est Level III 10:36:21 [employer] LEGAL ASSISTANT Lorene Meryl Ramakrishna [facility] [place] CPT-80487 Ofc Vst, Est Level IV 15:48:[address] [facility] [place] CPT-23158 Ofc Vst, Est Level III 11:58:31 [address]yl Durbin [facility] [place] CPT-49987 Ofc Vst, Est Level IV 18:14:00 [address] [facility] [place] CPT-73551 Ofc Vst, New Level III 19:15:23 [employer]GAL ASSISTANT Lorene Meryl Durbin [facility] [place] Procedures Code Procedure Name Date Entry Date Standard Description CPT-G0439 Medicare Annual Wellness Visit 14:14:39 CDT CPT-G8445 E-Prescribing Not sent due to no medication given 21:20: 47 CDT CPT-G8445 E-Prescribing Not sent due to no medication given 20:32: 44 [employer] LEGAL ASSISTANT CPT-G8445 E-Prescribing Not sent due to no medication given 14:43: 31 [employer] LEGAL ASSISTANT CPT-G8445 E-Prescribing Not sent due to no medication given 20:01: 57 [employer] LEGAL ASSISTANT CPT-G8445 E-Prescribing Not sent due to no medication given 16:57: 33 CDT CPT-G8445 E-Prescribing Not sent due to no medication given 14:43: 50 CDT CPT-G8445 E-Prescribing Not sent due to no medication given 15:02: 07 CDT CPT-G8443 E-Prescribing Medication Sent 14:44:46 CDT CPT-G8443 E-Prescribing Medication Sent 16:13:39 CDT CPT-79429 Biopsy, skin/subcut/mucous membrane; sngl lsn 15:46:15 CDT CPT-G8445 E-Prescribing Not sent due to no medication given 14:23: 32 CDT CPT-G0438 Medicare Annual Wellness Visit Initial 14:23:32 CDT CPT-G8445 E-Prescribing Not sent due to no medication given 15:57: 50 CDT CPT-G8443 E-Prescribing Medication Sent 15:52:15 [employer] LEGAL ASSISTANT CPT-G8443 E-Prescribing Medication Sent 15:08:06 CDT CPT-97291 Injection, Pneumovax 16:28:10 CDT CPT-G8443 E-Prescribing Medication Sent 15:52:30 CDT CPT-13019 EKG w/ Interpretation 17:24:06 CDT CPT-58082 EKG w/ Interpretation 11:58:31 CDT
--- OUTSIDE RECORDS SUMMARY | 2017-12-16 05:22 | XMS REPORT | Clinical Summary ---
Author Author User, [employer] Organization Lorene Durbin DO, FACP Address Unknown [...] impaired renal function OSTEOARTHRITIS 715.90 Active Lorene Dubrin Osteoarthrosis, unspecified whether generalized or localized, involving [...] 1 PO dialy for three days PREDNISONE 49700250646 Active Lorene Durbin SYMBICORT 160-4.5 MCG/ACT AERO 2 puffs BID BUDESONIDE- FORMOTEROL FUMARATE 12860126198 Active Lorene Durbin PULMICORT 0.5 MG/2ML SUSP I VIAL-INHALE ORALLY DAILY BUDESONIDE 60405550294 No Longer Active Lorene Durbin FOLIC ACID 1 MG TABS 1 PO QD FOLIC ACID 26159694099 No Longer Active Lorene Durbin TRAZODONE HCL 100 MG TABS 1 PO AT HS TRAZODONE HCL 07062148907 Active Lorene Durbin PREDNISONE 5 MG TABS 1 PO DAILY PREDNISONE 00626048428 Active Lorene Durbin NOVOLOG FLEXPEN 100 UNIT/ML SOPN INJECT 3 SQ BEFORE MEALS INSULIN ASPART 47963458287 Active Lorene Durbin IPRATROPIUM-ALBUTEROL 0.5-2.5 (3) MG/3ML SOLN 1 VIAL INHALE ORALLY TID 09/17 IPRATROPIUM-ALBUTEROL 33256148139 Active Lorene Durbin DEPAKOTE SPRINKLES 125 MG CPSP 1 TIME DAILY DIVALPROEX SODIUM 64715498789 Active Lorene Sheth Ramakrishna EXELON 4.6 MG/24HR PT24 APPLY PATCH DAILY RIVASTIGMINE 33523816720 Active Lorene Meryl Ramakrishna FOLIC ACID 1 MG TABS 1 PO DAILY FOLIC ACID 87864128962 Active Lorene Meryl Ramakrishna MELATONIN 3 MG TABS 1 PO AT HS FOR INSOMNIA MELATONIN 10249824433 Active Lorene Meryl Ramakrishna MIRALAX POWD 17 GRAMS PO BID POLYETHYLENE GLYCOL 3350 59339389046 Active Lorene Meryl Ramakrishna NORVASC 10 MG TABS 1 PO DAILY AMLODIPINE BESYLATE 68065186604 Active Lorene Meryl Ramakrishna CELEXA 20 MG TABS 1 PO DAILY CITALOPRAM HYDROBROMIDE 48059636573 Active Lorene Merylgladys Durbin PAXIL 20 MG TAB 1 PO DAILY PAROXETINE HCL 17555034841 No Longer Active Lorene Meryl Durbin BISACODYL LAXATIVE 10 MG SUPP 1 NE QD PRN constipation BISACODYL 58657582691 No Longer Active Lorene Meryl Durbin COREG 6.25 MG TABS 1 PO BID CARVEDILOL 71825420713 Active Lorene Meryl Durbin BENADRYL 25 MG CAP 1 PO TID prn DIPHENHYDRAMINE HCL 61935760672 No Longer Active Lorene Meryl Durbin LACTULOSE SOLN 30 ML PO BID PRN Constipation LACTULOSE SOLN 80081609133 No Longer Active Lorene Meryl Durbin LASIX 40 MG TAB 1 PO MWF FUROSEMIDE 18093737003 No Longer Active Lorene Meryl Durbin VITAMIN D 1000 UNIT TABS 1 PO Daily CHOLECALCIFEROL 55321546160 Active Lorene Meryl Durbin ZOCOR 20 MG TABS 1 PO DAILY SIMVASTATIN 54642805640 Active Elizabeth Dixon FINASTERIDE 5 MG TABS 1 PO DAILY FINASTERIDE 00693172268 Active Lorene Meryl Durbin NAMENDA 10 MG TABS 1 PO BID MEMANTINE HCL 40752994378 Active Elizabeth Dixon KENALOG 0.1 % CREA apply to affected areas BID TRIAMCINOLONE ACETONIDE No Longer Active Lorene Meryl Durbin DILANTIN 100 MG CAP 1 PO at 7am and 2 pm and 2 PO at HS PHENYTOIN SODIUM EXTENDED 69058697413 No Longer Active Lorene Meryl Durbin PREDNISONE 20 MG TAB 1 PO daily for 7 days then resume 5mg dosing as previous PREDNISONE 61656300769 No Longer Active Lorenedada Durbin AUGMENTIN 500-125 MG TAB 1 PO BID AMOXICILLIN-POT CLAVULANATE 86490025697 No Longer Active Lorenedada Durbin OCUFLOX 0.3 % SOLN 2 drops in right ear TID for 7 days OFLOXACIN 53190302104 No Longer Active Lorene Meryl Durbin PREDNISONE 20 MG TAB 1 PO daily for 7 days PREDNISONE 37948266891 No Longer Active Lorene Meryl Durbin KENALOG 0.1 % CREA apply to affected areas BID TRIAMCINOLONE ACETONIDE No Longer Active Lorenedada Durbin ATARAX 25 MG TAB 1 PO Q6hrs prn itching HYDROXYZINE HCL No Longer Active Lorenedada Durbin DETROL LA 4 MG CP24 1 PO daily TOLTERODINE TARTRATE 30070879355 No Longer Active Lorene Meryl Durbin FINASTERIDE 5 MG TABS 1 PO BID FINASTERIDE 27503517023 No Longer Active Lorenedada Durbin BACTRIM DS 800-160 MG TAB 1 PO MWF TRIMETHOPRIM- SULFAMETHOXAZOLE 30539982451 No Longer Active Lorene Meryl Durbin NYSTATIN POWD Apply Topically to groin BID for gaulding NYSTATIN 94205086972 No Longer Active Lorenedada Durbin TERBINAFINE HCL 1 % CREA Apply to affected area BID TERBINAFINE HCL 35933377525 No Longer Active Lorenedada Durbin CALTRATE 600 PLUS-VIT D 600-200 MG-IU TABS 1 PO BID CALCIUM-VITAMIN D Active Elizabeth Dixon VALTREX 1 GM TAB 1 PO BID VALACYCLOVIR HCL 21194641551 No Longer Active Lorene Meryl Durbin TESSALON 200 MG CAPS 1 PO TID prn cough BENZONATATE 96058597683 No Longer Active Elizabeth Dixon PREDNISONE 10 MG TABS 1 PO QD PREDNISONE 08174278539 No Longer Active Lorene Meryl Durbin TESSALON 200 MG CAPS 1 PO TID prn cough BENZONATATE 49867407537 No Longer Active Lorene Durbin FLOMAX 0.4 MG CAPS 1 PO QD for urinary retention TAMSULOSIN HCL 53714931405 Active Elizabeth Dixon OMEPRAZOLE 40 MG CPDR 1 PO QD OMEPRAZOLE 44924227207 Active Elizabeth Dixon FERROUS SULFATE 325 (65 FE) MG TABS 1 PO BID FERROUS SULFATE 60646245152 Active Elizabeth Dixon COLACE 100 MG CAPS 1 PO BID prevent constipation DOCUSATE SODIUM 56419472821 Active Elizabeth Dixon ACETAMINOPHEN 325 MG TABS 2 PO Q 4hrs PRN pain or fever ACETAMINOPHEN 51797757318 Active Lorenedada Durbin IMURAN 50 MG TABS 3 po daily AZATHIOPRINE 51238230980 No Longer Active Loreneadda Durbin TOVIAZ 4 MG KS17L-OAK 1 po daily FESOTERODINE FUMARATE 62933057706 No Longer Active Lorene Meryl Durbin COREG 12.5 MG TABS 1 po bid CARVEDILOL 48339240121 No Longer Active Lorene Meryl Durbin WAVESENSE PRESTO TEST STRP Check BS Daily DX: DIABETES GLUCOSE BLOOD 27320754803 No Longer Active Lorene Meryl Durbin OMEPRAZOLE 40 MG CPDR 1 PO Daily OMEPRAZOLE 40566583984 No Longer Active Lorene Meryl Durbin FLOMAX 0.4 MG CAPS 1 PO Daily TAMSULOSIN HCL 88439610057 No Longer Active Lorene Meryl Durbin MEPRON 750 MG/5ML SUSP 5 ml PO BID ATOVAQUONE 98018349320 No Longer Active Lorene Meryl Durbin PREDNISONE 5 MG TABS 2 po daily PREDNISONE 02762917571 No Longer Active Lorene Meryl Durbin TERAZOSIN HCL 2 MG CAPS 1 PO qhs TERAZOSIN HCL 04436127750 No Longer Active Lorene Meryl Durbin VITAMIN D 1000 UNIT TABS 1 PO Daily CHOLECALCIFEROL 51849735437 No Longer Active Lorene Meryl Durbin PEPCID 20 MG TAB 1 PO daily FAMOTIDINE 90483587367 No Longer Active Lorene Meryl Durbin VITAMIN B-12 100 MCG TABS 1 po daily CYANOCOBALAMIN 55648636351 No Longer Active Lorene Meryl Durbin IRON 325 (65 FE) MG TABS 1 PO daily FERROUS SULFATE 40707709351 No Longer Active Lorene Meryl Durbin CALCIUM 600 1500 MG TABS 1 PO QAM and 2 PO QHS CALCIUM CARBONATE 84086790180 No Longer Active Lorene Meryl Durbin MULTIVITAMINS TABS 1 po daily MULTIPLE VITAMIN 37321567480 No Longer Active Lorene Meryl Durbni FISH OIL 1000 MG CAPS 1 po daily OMEGA-3 FATTY ACIDS 84821502217 No Longer Active Lorene Meryl Durbin ASPIRIN 81 MG TAB 1 PO QD ASPIRIN 12949449890 No Longer Active Lorene Meryl Durbin NORVASC 5 MG TAB 1 PO Daily AMLODIPINE BESYLATE 34288482190 No Longer Active Lorene Meryl Durbin CLOBETASOL PROPIONATE 0.05 % CREA Apply small amount to affected areas on arms BID CLOBETASOL PROPIONATE 32579443030 No Longer Active Lorene Meryl Durbin LOTRISONE 0.05-1 % CREAM Apply a small amount to affected area on back BID CLOTRIMAZOLE-BETAMETHASONE 12586315498 No Longer Active Lorene Meryl Durbin CYCLOPHOSPHAMIDE 25 MG TABS take 5 tablets once daily CYCLOPHOSPHAMIDE 17107334171 No Longer Active Lorene Meryl Durbin PERCOCET 5-325 MG TAB 1 PO Q 6 hours OXYCODONE- ACETAMINOPHEN 68471957306 No Longer Active Lorene Meryl Durbin VALTREX 1 GM TAB 1 PO BID VALACYCLOVIR HCL 51220192075 No Longer Active Lorene Meryl Durbin ACCUPRIL 10 MG TABS 1 po daily QUINAPRIL HCL 63176828805 No Longer Active Lorene Meryl Durbin COZAAR 25 MG TAB 1 PO daily LOSARTAN POTASSIUM 76880401258 No Longer Active Elizabeth Dixon MAGNESIUM OXIDE 400 MG CAPS 1 PO daily MAGNESIUM OXIDE 38179870887 No Longer Active Lorene Meryl Durbin LOTRISONE 0.05-1 % CREAM Apply to affected areas twice daily prn CLOTRIMAZOLE-BETAMETHASONE 32807824484 No Longer Active Lorenedada Durbin FERROUS SULFATE 100 MG 1 PO daily FERROUS SULFATE 100 MG No Longer Active Lorene Meryl Durbin QUALAQUIN 324 MG CAPS 1 PO QHS prn QUININE SULFATE 37724520244 No Longer Active Lorene Meryl Durbin ROBITUSSIN A-C 10-100 MG/5ML SYRUP 1 teaspoon PO Q 4-6 hr prn ROBITUSSIN A-C 10-100 MG/5ML SYRUP 58726036621 No Longer Active Lorene Meryl Durbin BIAXIN XL PAC 500 MG TB24 2 pills at same time daily for 7 days CLARITHROMYCIN 51610386005 No Longer Active Lorene Meryl Durbin TESSALON 200 MG CAPS 1 PO TID prn cough BENZONATATE 37865706262 No Longer Active Lorene Meryl Durbin ROBITUSSIN A-C 10-100 MG/5ML SYRUP 1 teaspoon PO Q 4-6 hr prn ROBITUSSIN A-C 10-100 MG/5ML SYRUP 34339138892 No Longer Active Lorene Meryl Durbin BIAXIN XL PAC 500 MG TB24 2 pills at same time daily for 7 days CLARITHROMYCIN 22252244759 No Longer Active Lorene Meryl Durbin KEFLEX 500 MG CAP 1 PO TID for 7 days CEPHALEXIN 51229287279 No Longer Active Lorene Meryl Durbin FERROUS SULFATE 325 (65 FE) MG TABS 1 PO daily FERROUS SULFATE 74412834781 No Longer Active Lorene Meryl Durbin CINNAMON 500 MG CAPS 1 po daily CINNAMON 31260768428 No Longer Active Lorene Meryl Durbin XANAX 0.25 MG TABS 1 po q 4-6 hrs prn ALPRAZOLAM 68827954257 No Longer Active Lorene Meryl Durbin TRIAMCINOLONE ACETONIDE 0.1 % OINT Apply as directed TRIAMCINOLONE ACETONIDE 96441918043 No Longer Active Lorene Meryl Durbin KERALAC 50 % GEL as needed UREA 84630516595 No Longer Active Lorene Meryl Durbin AMITRIPTYLINE HCL 25 MG TAB 1 PO daily at night prn AMITRIPTYLINE HCL 21708480554 No Longer Active Lorene Meryl Durbin ZOCOR 5 MG TABS 1 PO QOD (on hold) SIMVASTATIN 67854684541 No Longer Active Lorene Meryl Durbin VIAGRA 50 MG TABS prn SILDENAFIL CITRATE 55363383330 No Longer Active Lorene Meryl Durbin DARVOCET-N 100 100-650 MG TABS 1 po q 6 hrs. prn pain PROPOXYPHENE N-APAP 77027885199 No Longer Active Lorene Meryl Durbin CYCLOBENZAPRINE HCL 10 MG TABS 1 po q 12 hrs. prn CYCLOBENZAPRINE HCL 15880969916 No Longer Active Lorene Meryl Durbin LORTAB 5 5-500 MG TABS 1 as needed HYDROCODONE- ACETAMINOPHEN 42791264529 No Longer Active Lorene Meryl Durbin ALBUTEROL 90 MCG/ACT AERS 2 puffs Q4-6hrs prn ALBUTEROL 31761469543 No Longer Active Lorene Meryl Durbin ROBITUSSIN A-C 10-100 MG/5ML SYRUP 5cc PO Q 4-6 hr prn ROBITUSSIN A-C 10-100 MG/5ML SYRUP 14453879097 No Longer Active Lorene Meryl Durbin ADVAIR DISKUS 100-50 MCG/DOSE MISC 1 puff BID FLUTICASONE-SALMETEROL 32083719571 No Longer Active Lorene Meryl Durbin AUGMENTIN 500-125 MG TABS 1 PO BID AMOXICILLIN-POT CLAVULANATE 33382098763 No Longer Active Lorene Meryl Durbin PLAVIX 75 MG TABS 1 po daily CLOPIDOGREL BISULFATE 75570270400 No Longer Active Lorene Meryl Durbin AMOXIL 500 MG TABS 1 PO TID AMOXICILLIN 77949220880 No Longer Active Lorene Meryl Durbin Immunizations [...] 10*6/mm3 Encounters Code Encounter Date Provider Facility CPT-16680 Ofc Vst, Est Level III 14:28:01 CDT Lorene Meryl Durbin, DO, FACP CPT-37424 Ofc Vst, Est Level III 16:47:49 CDT Lorene Meryl Durbin, DO, FACP CPT-62391 Ofc Vst, Est Level III 16:04:23 CDT Lorene Meryl Durbin, DO, FACP CPT-99060 Ofc Vst, Est Level III 19:00:13 OUTPATIENT COORDINATOR Lorene Durbin, DO, FACP CPT-06072 Ofc Vst, Est Level III 21:20:47 CDT Lorenedada Durbin, DO, FACP CPT-84503 Ofc Vst, Est Level III 20:32:44 OUTPATIENT COORDINATOR Lorene Durbin, DO, FACP CPT-65220 Ofc Vst, Est Level III 14:43:31 OUTPATIENT COORDINATOR Lorene Durbin, DO, FACP CPT-88943 Ofc Vst, Est Level III 20:01:57 OUTPATIENT COORDINATOR Lorene Durbin, DO, FACP CPT-48212 Ofc Vst, Est Level III 16:57:33 CDT Lorene Durbin, DO, FACP CPT-18494 Ofc Vst, Est Level III 14:43:50 CDT Lorenedada Durbin, DO, FACP CPT-37734 Ofc Vst, Est Level III 15:02:07 CDT Lorene Sorensen Durbin, DO, FACP CPT-85037 Ofc Vst, Est Level III 14:44:46 CDT Lorene Meryl Sorensen Durbin, DO, FACP CPT-26245 Ofc Vst, Est Level IV 16:13:39 CDT Lorene Meryl Sorensen Durbin, DO, FACP CPT-39917 Ofc Vst, Est Level III 11:48:41 CDT Lorene Meryl Sorensen Durbin, DO, FACP CPT-43648 Ofc Vst, Est Level III 15:46:15 CDT Lorene Meryl Sorensen Durbin, DO, FACP CPT-53569 Ofc Vst, Est Level IV 15:57:50 CDT Lorenedada Sorensen Durbin, DO, FACP CPT-31358 Ofc Vst, Est Level III 16:05:36 OUTPATIENT COORDINATOR Lorene Sorensen Durbin, DO, FACP CPT-57646 Ofc Vst, Est Level IV 15:52:15 OUTPATIENT COORDINATOR Lorene Sorensen Durbin, DO, FACP CPT-14531 Ofc Vst, Est Level III 15:08:06 CDT Lorene Sorensen Durbin, DO, FACP CPT-18583 Ofc Vst, Est Level IV 15:06:29 CDT Lorenedada Sorensen Durbin, DO, FACP CPT-03227 Ofc Vst, Est Level IV 13:29:16 CDT Lorene Sorensen Durbin, DO, FACP CPT-95281 Ofc Vst, Est Level V 13:50:55 OUTPATIENT COORDINATOR Lorene Sorensen Durbin, DO, FACP CPT-90888 Ofc Vst, Est Level IV 11:10:14 OUTPATIENT COORDINATOR Lorene Sorensen Durbin, DO, FACP CPT-90547 Ofc Vst, Est Level III 15:28:22 CDT Lorene Meryl Sorensen Ramakrishna, DO, FACP CPT-16543 Ofc Vst, New Level IV 14:17:27 CDT Lorene Meryl Sorensen Durbin, DO, FACP CPT-09406 Ofc Vst, New Level II 14:17:27 CDT Lorene Meryl Sorensen Durbin, DO, FACP CPT-34052 Ofc Vst, Est Level IV 10:59:16 CDT Lorene Meryl Sorensen Ramakrishna, DO, FACP CPT-00191 Ofc Vst, Est Level II 16:12:29 CDT Lorene Meryl Sorensen Ramakrishna, DO, FACP CPT-44133 Ofc Vst, Est Level IV 10:53:48 CDT Lorene Meryl Sorensen Ramakrishna, DO, FACP CPT-40453 Office Consult, Level III 11:11:19 OUTPATIENT COORDINATOR Lorene Sorensen Ramakrishna, DO, FACP CPT-41312 Ofc Vst, Est Level IV 11:12:23 CDT Lorene Sorensen Ramakrishna, DO, FACP CPT-91043 Ofc Vst, Est Level IV 11:46:11 CDT Lorene Meryl Sorensen Ramakrishna, DO, FACP CPT-38139 Ofc Vst, Est Level IV 15:36:14 CDT Lorene Meryl Sorensen Ramakrishna, DO, FACP CPT-35253 Ofc Vst, Est Level IV 11:36:09 OUTPATIENT COORDINATOR Lorene Sorensen Ramakrishna, DO, FACP CPT-54329 Ofc Vst, Est Level IV 16:28:10 CDT Lorene Meryl Sorensen Ramakrishna, DO, FACP CPT-92365 Ofc Vst, Est Level IV 15:52:30 CDT Lorenedada Sorensen Ramakrishna, DO, FACP CPT-34334 Ofc Vst, Est Level III 11:48:57 CDT Lorene Meryl Sorensen Ramakrishna, DO, FACP CPT-43363 Ofc Vst, Est Level IV 09:15:20 OUTPATIENT COORDINATOR Lorene Meryl Sorensen Ramakrishna, DO, FACP CPT-19299 Ofc Vst, Est Level IV 16:43:12 OUTPATIENT COORDINATOR Lorene Meryl Levinener Lorene Sorensen Ramakrishna, DO, FACP CPT-36496 Ofc Vst, Est Level III 14:52:39 CDT Lorene Meryl Levinener Lorene Sorensen Ramakrishna, DO, FACP CPT-40144 Ofc Vst, Est Level IV 11:27:37 CDT Lorene Meryl Levinener Lorene Sorensen Ramakrishna, DO, FACP CPT-86082 Ofc Vst, Est Level III 09:53:01 OUTPATIENT COORDINATOR Lorene Meryl Levinener Lorene Sorensen Ramakrishna, DO, FACP CPT-16728 Ofc Vst, Est Level IV 09:49:25 CDT Lorenedada Levinener Lorene Sorensen Ramakrishna, DO, FACP CPT-36350 Ofc Vst, Est Level IV 11:33:29 CDT Lorenedada Sheth Ramakrishna Lorene Sorensen Ramakrishna, DO, FACP CPT-74279 Ofc Vst, Est Level IV 14:11:50 OUTPATIENT COORDINATOR Lorene Durbin [facility] [employer] [facility] CPT-41922 Ofc Vst, Est Level IV 17:26:08 OUTPATIENT COORDINATOR Lorene Durbin [facility] CPT-66371 Ofc Vst, Est Level IV 10:40:42 OUTPATIENT COORDINATOR Lorene Durbin [facility] CPT-39901 Ofc Vst, Est Level IV 15:05:22 CDT Lorene Meryl Durbin [facility] CPT-64089 Ofc Vst, Est Level IV 14:42:[address] Meryl Durbin [facility] Justin CPT-84052 Ofc Vst, Est Level III 16:05:[address] [facility] CPT-28323 Ofc Vst, Est Level V 17:24:06 [address] Meryl Durbin [facility] CPT-99231 Ofc Vst, Est Level IV 16:02:[address] Meryl Durbin [facility] CPT-13174 Ofc Vst, Est Level III 12:50:41 OUTPATIENT COORDINATOR Lorene Meryl Durbin [facility] Justin CPT-52223 Ofc Vst, Est Level II 12:09:58 OUTPATIENT COORDINATOR Lorene Durbin [facility] CPT-66472 Ofc Vst, Est Level IV 09:31:48 OUTPATIENT COORDINATOR Lorene Durbin [facility] CPT-39336 Ofc Vst, Est Level III 10:36:21 OUTPATIENT COORDINATOR Lorene Durbin [facility] CPT-20937 Ofc Vst, Est Level IV 15:48:05 [address] Durbin [facility] CPT-92812 Ofc Vst, Est Level III 11:58:[address] [facility] CPT-57970 Ofc Vst, Est Level IV 18:14:[address]yl Durbin [facility] CPT-87321 Ofc Vst, New Level III 19:15:23 OUTPATIENT COORDINATOR Lorene Durbin [facility] Procedures Code Procedure Name Date Entry Date Standard Description CPT-G0439 Medicare Annual Wellness Visit 14:14:39 CDT CPT-G8445 E-Prescribing Not sent due to no medication given 21:20: 47 CDT CPT-G8445 E-Prescribing Not sent due to no medication given 20:32: 44 OUTPATIENT COORDINATOR CPT-G8445 E-Prescribing Not sent due to no medication given 14:43: 31 OUTPATIENT COORDINATOR CPT-G8445 E-Prescribing Not sent due to no medication given 20:01: 57 OUTPATIENT COORDINATOR CPT-G8445 E-Prescribing Not sent due to no medication given 16:57: 33 CDT CPT-G8445 E-Prescribing Not sent due to no medication given 14:43: 50 CDT CPT-G8445 E-Prescribing Not sent due to no medication given 15:02: 07 CDT CPT-G8443 E-Prescribing Medication Sent 14:44:46 CDT CPT-G8443 E-Prescribing Medication Sent 16:13:39 CDT CPT-84557 Biopsy, skin/subcut/mucous membrane; sngl lsn 15:46:15 CDT CPT-G8445 E-Prescribing Not sent due to no medication given 14:23: 32 CDT CPT-G0438 Medicare Annual Wellness Visit Initial 14:23:32 CDT CPT-G8445 E-Prescribing Not sent due to no medication given 15:57: 50 CDT CPT-G8443 E-Prescribing Medication Sent 15:52:15 OUTPATIENT COORDINATOR CPT-G8443 E-Prescribing Medication Sent 15:08:06 CDT CPT-10601 Injection, Pneumovax 16:28:10 CDT CPT-G8443 E-Prescribing Medication Sent 15:52:30 CDT CPT-60984 EKG w/ Interpretation 17:24:06 CDT CPT-50014 EKG w/ Interpretation 11:58:31 CDT
--- OUTSIDE RECORDS SUMMARY | 2017-12-16 05:24 | XMS REPORT | Clinical Summary ---
Author Author User, [employer] Organization Lorene Durbin DO, FACP Address Unknown [...] Instruction BISACODYL LAXATIVE 10 MG SUPP 1 NJ QD PRN constipation BISACODYL 56178213830 No Longer Active Lorene Durbin PREDNISONE 2.5 MG TABS 1 PO DAILY PREDNISONE 86544762492 Active Lorenedada Durbin COREG 6.25 MG TABS 1 PO BID CARVEDILOL 06555794703 Active Lorenedada Durbin BENADRYL 25 MG CAP 1 PO TID prn DIPHENHYDRAMINE HCL 76587124276 No Longer Active Lorenedada Durbin LACTULOSE SOLN 30 ML PO BID PRN Constipation LACTULOSE SOLN 41800647585 No Longer Active Lorene Durbin LASIX 40 MG TAB 1 PO MWF FUROSEMIDE 82396551310 No Longer Active Lorene Durbin VITAMIN D 1000 UNIT TABS 1 PO Daily CHOLECALCIFEROL 15595100444 Active Lorene Durbin ZOCOR 20 MG TABS 1 PO DAILY SIMVASTATIN 22721295947 Active Elizabeth Dixon FINASTERIDE 5 MG TABS 1 PO DAILY FINASTERIDE 39368087751 Active Lorene Durbin NAMENDA 10 MG TABS 1 PO BID MEMANTINE HCL 07239300660 Active Elizabeth Dixon KENALOG 0.1 % CREA apply to affected areas BID TRIAMCINOLONE ACETONIDE No Longer Active Lorene Durbin DILANTIN 100 MG CAP 1 PO at 7am and 2 pm and 2 PO at HS PHENYTOIN SODIUM EXTENDED 17480557091 No Longer Active Lorene Durbin PREDNISONE 20 MG TAB 1 PO daily for 7 days then resume 5mg dosing as previous PREDNISONE 52406151170 No Longer Active Lorene Meryl Durbin AUGMENTIN 500-125 MG TAB 1 PO BID AMOXICILLIN-POT CLAVULANATE 10953799055 No Longer Active Lorene Meryl Durbin OCUFLOX 0.3 % SOLN 2 drops in right ear TID for 7 days OFLOXACIN 15883539844 No Longer Active Lorene Meryl Durbin PREDNISONE 20 MG TAB 1 PO daily for 7 days PREDNISONE 35389175396 No Longer Active Lorene Meryl Durbin KENALOG 0.1 % CREA apply to affected areas BID TRIAMCINOLONE ACETONIDE No Longer Active Lorene Meryl Durbin ATARAX 25 MG TAB 1 PO Q6hrs prn itching HYDROXYZINE HCL No Longer Active Lorene Meryl Durbin DETROL LA 4 MG CP24 1 PO daily TOLTERODINE TARTRATE 79777696005 No Longer Active Lorene Meryl Durbin FINASTERIDE 5 MG TABS 1 PO BID FINASTERIDE 35366882821 No Longer Active Lorenedada Durbin BACTRIM DS 800-160 MG TAB 1 PO MWF TRIMETHOPRIM- SULFAMETHOXAZOLE 50133632009 No Longer Active Lorene Meryl Durbin NYSTATIN POWD Apply Topically to groin BID for gaulding NYSTATIN 97372389691 No Longer Active Lorene Meryl Durbin TERBINAFINE HCL 1 % CREA Apply to affected area BID TERBINAFINE HCL 64547755472 No Longer Active Lorene Meryl Durbin CALTRATE 600 PLUS-VIT D 600-200 MG-IU TABS 1 PO BID CALCIUM-VITAMIN D Active Elizabeth Dixon VALTREX 1 GM TAB 1 PO BID VALACYCLOVIR HCL 29204278432 No Longer Active Lorene Meryl Durbin TESSALON 200 MG CAPS 1 PO TID prn cough BENZONATATE 40816935243 No Longer Active Elizabethjenn Dixon PREDNISONE 10 MG TABS 1 PO QD PREDNISONE 48245051257 No Longer Active Lorene Durbin PAXIL 20 MG TAB 1 PO DAILY PAROXETINE HCL 88355870511 Active Elizabeth Dixon TESSALON 200 MG CAPS 1 PO TID prn cough BENZONATATE 54563264277 No Longer Active Lorenedada Durbin FLOMAX 0.4 MG CAPS 1 PO QD for urinary retention TAMSULOSIN HCL 26334221824 Active Elizabeth Lizarragatis OMEPRAZOLE 40 MG CPDR 1 PO QD OMEPRAZOLE 67773231925 Active Elizabeth Lizarragatis FOLIC ACID 1 MG TABS 1 PO QD FOLIC ACID 03109464635 Active Elizabeth Dixon FERROUS SULFATE 325 (65 FE) MG TABS 1 PO BID FERROUS SULFATE 96420489009 Active Elizabeth Dixon COLACE 100 MG CAPS 1 PO BID prevent constipation DOCUSATE SODIUM 08673220960 Active Elizabeth Dixon ACETAMINOPHEN 325 MG TABS 2 PO Q 4hrs PRN pain or fever ACETAMINOPHEN 12192391418 Active Lorenedada Durbin IMURAN 50 MG TABS 3 po daily AZATHIOPRINE 08274652280 No Longer Active Lorenedada Durbin TOVIAZ 4 MG [id number]-[id number] 1 po daily FESOTERODINE FUMARATE 12021141320 No Longer Active Lorenedada Durbin COREG 12.5 MG TABS 1 po bid CARVEDILOL 40256916657 No Longer Active Lorene Durbin WAVESENSE PRESTO TEST STRP Check BS Daily DX: DIABETES GLUCOSE BLOOD 15524230772 No Longer Active Lorene Durbin OMEPRAZOLE 40 MG CPDR 1 PO Daily OMEPRAZOLE 17976066572 No Longer Active Lorenedada Durbin FLOMAX 0.4 MG CAPS 1 PO Daily TAMSULOSIN HCL 53241172274 No Longer Active Lorene Meryl Durbin MEPRON 750 MG/5ML SUSP 5 ml PO BID ATOVAQUONE 53923979513 No Longer Active Lorene Meryl Durbin PREDNISONE 5 MG TABS 2 po daily PREDNISONE 14896545064 No Longer Active Lorene Meryl Durbin TERAZOSIN HCL 2 MG CAPS 1 PO qhs TERAZOSIN HCL 61211852352 No Longer Active Lorene Meryl Durbin VITAMIN D 1000 UNIT TABS 1 PO Daily CHOLECALCIFEROL 75274284476 No Longer Active Lorene Meryl Durbin PEPCID 20 MG TAB 1 PO daily FAMOTIDINE 97988452824 No Longer Active Lorene Meryl Durbin VITAMIN B-12 100 MCG TABS 1 po daily CYANOCOBALAMIN 13456180795 No Longer Active Lorene Meryl Durbin IRON 325 (65 FE) MG TABS 1 PO daily FERROUS SULFATE 64211405930 No Longer Active Lorene Meryl Dubrin CALCIUM 600 1500 MG TABS 1 PO QAM and 2 PO QHS CALCIUM CARBONATE 36593050678 No Longer Active Lorene Meryl Durbin MULTIVITAMINS TABS 1 po daily MULTIPLE VITAMIN 43532179009 No Longer Active Lorene Meryl Durbin FISH OIL 1000 MG CAPS 1 po daily OMEGA-3 FATTY ACIDS 32637184938 No Longer Active Lorene Meryl Durbin ASPIRIN 81 MG TAB 1 PO QD ASPIRIN 36990096424 No Longer Active Lorene Meryl Durbin NORVASC 5 MG TAB 1 PO Daily AMLODIPINE BESYLATE 55528968840 No Longer Active Lorene Meryl Durbin CLOBETASOL PROPIONATE 0.05 % CREA Apply small amount to affected areas on arms BID CLOBETASOL PROPIONATE 78047069511 No Longer Active Lorene Meryl Durbin LOTRISONE 0.05-1 % CREAM Apply a small amount to affected area on back BID CLOTRIMAZOLE-BETAMETHASONE 95264869619 No Longer Active Lorene Meryl Durbin CYCLOPHOSPHAMIDE 25 MG TABS take 5 tablets once daily CYCLOPHOSPHAMIDE 43536759171 No Longer Active Lorene Meryl Durbin PERCOCET 5-325 MG TAB 1 PO Q 6 hours OXYCODONE- ACETAMINOPHEN 85384011811 No Longer Active Lorene Meryl Durbin VALTREX 1 GM TAB 1 PO BID VALACYCLOVIR HCL 37983217758 No Longer Active Lorene Meryl Durbin ACCUPRIL 10 MG TABS 1 po daily QUINAPRIL HCL 60672187343 No Longer Active Lorene Meryl Durbin COZAAR 25 MG TAB 1 PO daily LOSARTAN POTASSIUM 07318461452 No Longer Active Elizabeth Dixon MAGNESIUM OXIDE 400 MG CAPS 1 PO daily MAGNESIUM OXIDE 74458049725 No Longer Active Lorene Meryl Durbin LOTRISONE 0.05-1 % CREAM Apply to affected areas twice daily prn CLOTRIMAZOLE-BETAMETHASONE 14983336146 No Longer Active Lorenedada Durbin FERROUS SULFATE 100 MG 1 PO daily FERROUS SULFATE 100 MG No Longer Active Lorene Meryl Durbin QUALAQUIN 324 MG CAPS 1 PO QHS prn QUININE SULFATE 43251139560 No Longer Active Lorene Meryl Durbin ROBITUSSIN A-C 10-100 MG/5ML SYRUP 1 teaspoon PO Q 4-6 hr prn ROBITUSSIN A-C 10-100 MG/5ML SYRUP 81019693837 No Longer Active Lorene Meryl Durbin BIAXIN XL PAC 500 MG TB24 2 pills at same time daily for 7 days CLARITHROMYCIN 56437587655 No Longer Active Lorene Meryl Durbin TESSALON 200 MG CAPS 1 PO TID prn cough BENZONATATE 78137577540 No Longer Active Lorene Meryl Durbin ROBITUSSIN A-C 10-100 MG/5ML SYRUP 1 teaspoon PO Q 4-6 hr prn ROBITUSSIN A-C 10-100 MG/5ML SYRUP 00593416165 No Longer Active Lorene Meryl Durbin BIAXIN XL PAC 500 MG TB24 2 pills at same time daily for 7 days CLARITHROMYCIN 18635882376 No Longer Active Lorene Meryl Durbin KEFLEX 500 MG CAP 1 PO TID for 7 days CEPHALEXIN 94253505442 No Longer Active Lorene Meryl Durbin FERROUS SULFATE 325 (65 FE) MG TABS 1 PO daily FERROUS SULFATE 39026561707 No Longer Active Lorene Meryl Durbin CINNAMON 500 MG CAPS 1 po daily CINNAMON 88888981361 No Longer Active Lorene Meryl Durbin XANAX 0.25 MG TABS 1 po q 4-6 hrs prn ALPRAZOLAM 33048437190 No Longer Active Lorene Meryl Durbin TRIAMCINOLONE ACETONIDE 0.1 % OINT Apply as directed TRIAMCINOLONE ACETONIDE 80143972990 No Longer Active Lorene Meryl Durbin KERALAC 50 % GEL as needed UREA 17271598563 No Longer Active Lorene Meryl Durbin AMITRIPTYLINE HCL 25 MG TAB 1 PO daily at night prn AMITRIPTYLINE HCL 74094170359 No Longer Active Lorene Meryl Durbin ZOCOR 5 MG TABS 1 PO QOD (on hold) SIMVASTATIN 31823678290 No Longer Active Lorene Meryl Durbin VIAGRA 50 MG TABS prn SILDENAFIL CITRATE 16008330119 No Longer Active Lorene Meryl Durbin DARVOCET-N 100 100-650 MG TABS 1 po q 6 hrs. prn pain PROPOXYPHENE N-APAP 58209457558 No Longer Active Lorenedada Durbin CYCLOBENZAPRINE HCL 10 MG TABS 1 po q 12 hrs. prn CYCLOBENZAPRINE HCL 07373722160 No Longer Active Lorene Meryl Durbin LORTAB 5 5-500 MG TABS 1 as needed HYDROCODONE- ACETAMINOPHEN 76341131371 No Longer Active Lorene Meryl Durbin ALBUTEROL 90 MCG/ACT AERS 2 puffs Q4-6hrs prn ALBUTEROL 00894499123 No Longer Active Lorene Meryl Durbin ROBITUSSIN A-C 10-100 MG/5ML SYRUP 5cc PO Q 4-6 hr prn ROBITUSSIN A-C 10-100 MG/5ML SYRUP 78727764857 No Longer Active Lorenedada Durbin ADVAIR DISKUS 100-50 MCG/DOSE MISC 1 puff BID FLUTICASONE-SALMETEROL 25288665243 No Longer Active Lorene Meryl Durbin AUGMENTIN 500-125 MG TABS 1 PO BID AMOXICILLIN-POT CLAVULANATE 01971553589 No Longer Active Lorene Meryl Durbin PLAVIX 75 MG TABS 1 po daily CLOPIDOGREL BISULFATE 19634403902 No Longer Active Lorene Meryl Durbin AMOXIL 500 MG TABS 1 PO TID AMOXICILLIN 04382883633 No Longer Active Lorenedada Durbin Immunizations Vaccine [...] 10*6/mm3 Encounters Code Encounter Date Provider Facility CPT-86830 Ofc Vst, Est Level III 16:04:23 CDT Lorene MerylJamison Levinener, DO, FACP CPT-35264 Ofc Vst, Est Level III 19:00:13 CARE CONSULTANT Lorenedada Durbin, DO, FACP CPT-54634 Ofc Vst, Est Level III 21:20:47 CDT Lorene Meryl Durbin, DO, FACP CPT-99988 Ofc Vst, Est Level III 20:32:44 CARE CONSULTANT Lorene Durbin, DO, FACP CPT-36705 Ofc Vst, Est Level III 14:43:31 CARE CONSULTANT Lorene Durbin, DO, FACP CPT-55265 Ofc Vst, Est Level III 20:01:57 CARE CONSULTANT Lorene Durbin, DO, FACP CPT-88041 Ofc Vst, Est Level III 16:57:33 CDT Lorene Durbin, DO, FACP CPT-19215 Ofc Vst, Est Level III 14:43:50 CDT Lorenedada Durbin, DO, FACP CPT-26295 Ofc Vst, Est Level III 15:02:07 CDT Lorenedada Durbin, DO, FACP CPT-23266 Ofc Vst, Est Level III 14:44:46 CDT Lorene Durbin, DO, FACP CPT-99992 Ofc Vst, Est Level IV 16:13:39 CDT Lorenedada Durbin, DO, FACP CPT-82002 Ofc Vst, Est Level III 11:48:41 CDT Lorene Meryl Sorensen Durbin, DO, FACP CPT-25388 Ofc Vst, Est Level III 15:46:15 CDT Lorene Meryl Pedersoni S Durbin, DO, FACP CPT-70146 Ofc Vst, Est Level IV 15:57:50 CDT Lorene Meryl Paulson S Durbin, DO, FACP CPT-80861 Ofc Vst, Est Level III 16:05:36 CARE CONSULTANT Lorene Meryl Pedersoni S Durbin, DO, FACP CPT-39518 Ofc Vst, Est Level IV 15:52:15 CARE CONSULTANT Lorene Meryl Pedersoni S Durbin, DO, FACP CPT-18050 Ofc Vst, Est Level III 15:08:06 CDT Lorene Meryl Sorensen Durbin, DO, FACP CPT-62155 Ofc Vst, Est Level IV 15:06:29 CDT Lorene Merly Pedersoni S Durbin, DO, FACP CPT-83908 Ofc Vst, Est Level IV 13:29:16 CDT Lorene Meryl Paulson S Durbin, DO, FACP CPT-13827 Ofc Vst, Est Level V 13:50:55 CARE CONSULTANT Lorene Meryl Paulson S Durbin, DO, FACP CPT-22122 Ofc Vst, Est Level IV 11:10:14 CARE CONSULTANT Lorene Meryl Paulson S Durbin, DO, FACP CPT-30973 Ofc Vst, Est Level III 15:28:22 CDT Lorene Meryl Paulson S Durbin, DO, FACP CPT-80214 Ofc Vst, New Level IV 14:17:27 CDT Lorene Meryl Paulson S Ramakrishna, DO, FACP CPT-81217 Ofc Vst, New Level II 14:17:27 CDT Lorenedada Sorensen Durbin, DO, FACP CPT-93611 Ofc Vst, Est Level IV 10:59:16 CDT Lorene Meryl Sorensen Durbin, DO, FACP CPT-53719 Ofc Vst, Est Level II 16:12:29 CDT Lorene Meryl Sorensen Durbin, DO, FACP CPT-45906 Ofc Vst, Est Level IV 10:53:48 CDT Lorene Meryl Sorensen Ramakrishna, DO, FACP CPT-39748 Office Consult, Level III 11:11:19 CARE CONSULTANT Lorene Sorensen Ramakrishna, DO, FACP CPT-14583 Ofc Vst, Est Level IV 11:12:23 CDT Lorenedada Sorensen Ramakrishna, DO, FACP CPT-76498 Ofc Vst, Est Level IV 11:46:11 CDT Lorenedada Sorensen Ramakrishna, DO, FACP CPT-29618 Ofc Vst, Est Level IV 15:36:14 CDT Lorene Meryl Sorensen Durbin, DO, FACP CPT-99602 Ofc Vst, Est Level IV 11:36:09 CARE CONSULTANT Lorene Sorensen Ramakrishna, DO, FACP CPT-65278 Ofc Vst, Est Level IV 16:28:10 CDT Lorene Meryl Sorensen Durbin, DO, FACP CPT-62688 Ofc Vst, Est Level IV 15:52:30 CDT Lorene Meryl Sorensen Durbin, DO, FACP CPT-63594 Ofc Vst, Est Level III 11:48:57 CDT Lorene Meryl Sorensen Durbin, DO, FACP CPT-81654 Ofc Vst, Est Level IV 09:15:20 CARE CONSULTANT Lorene Meryl Sorensen Ramakrishna, DO, FACP CPT-72713 Ofc Vst, Est Level IV 16:43:12 CARE CONSULTANT Lorenedada Sheth Ramakrishna Lorene Edu Ramakrishna, DO, FACP CPT-73014 Ofc Vst, Est Level III 14:52:39 CDT Lorene Sheth Durbin Lorene Edu Ramakrishna, DO, FACP CPT-45919 Ofc Vst, Est Level IV 11:27:37 CDT Lorene Meryl Levinener Lorene Sorensen Ramakrishna, DO, FACP CPT-85527 Ofc Vst, Est Level III 09:53:01 CARE CONSULTANT Lorenedada Sheth Ramakrishna Durbin, DO, FACP CPT-34408 Ofc Vst, Est Level IV 09:49:25 CDT Lorenedada Sheth Ramakrishna Paulson Edu Ramakrishna, DO, FACP CPT-72054 Ofc Vst, Est Level IV 11:33:29 CDT Lorene Meryl Durbin Lorene Sorensen Ramakrishna, DO, FACP CPT-99393 Ofc Vst, Est Level IV 14:11:50 CARE CONSULTANT Lorene Durbin [facility] [place] CPT-18320 Ofc Vst, Est Level IV 17:26:08 CARE CONSULTANT Lorene Durbin [facility] [place] CPT-99459 Ofc Vst, Est Level IV 10:40:42 CARE CONSULTANT Lorene Durbin [facility] [place] CPT-61445 Ofc Vst, Est Level IV 15:05:22 CDT Lorene Meryl Durbin [facility] [place] CPT-65484 Ofc Vst, Est Level IV 14:42:32 CDT Lorenedada Durbin [facility] [place] CPT-20211 Ofc Vst, Est Level III 16:05:07 CDT Lorene Durbin [facility] [place] CPT-72904 Ofc Vst, Est Level V 17:24:06 CDT Lorene Meryl Durbin [facility] [place] CPT-89094 Ofc Vst, Est Level IV 16:02:46 CDT Lorene Meryl Ramakrishna [facility] [place] CPT-78730 Ofc Vst, Est Level III 12:50:41 CARE CONSULTANT Lorene Meryl Ramakrishna [facility] [place] CPT-46446 Ofc Vst, Est Level II 12:09:58 CARE CONSULTANT Lorene Merylgladys Durbin [facility] [place] CPT-78636 Ofc Vst, Est Level IV 09:31:48 CARE CONSULTANT Lorenedada Durbin [facility] [place] CPT-00994 Ofc Vst, Est Level III 10:36:21 CARE CONSULTANT Lorene Merylgladys Durbin [facility] [place] CPT-37907 Ofc Vst, Est Level IV 15:48:05 CDT Lorene Meryl Durbin [facility] [place] CPT-53696 Ofc Vst, Est Level III 11:58:31 CDT Lorene Merylgladys Durbin [facility] [place] CPT-54533 Ofc Vst, Est Level IV 18:14:00 CDT Lorene Meryl Ramakrishna [facility] [place] CPT-40335 Ofc Vst, New Level III 19:15:23 CARE CONSULTANT Lorenedada Durbin [facility] [place] Procedures Code Procedure Name Date Entry Date Standard Description CPT-G0439 Medicare Annual Wellness Visit 14:14:39 CDT CPT-G8445 E-Prescribing Not sent due to no medication given 21:20: 47 CDT CPT-G8445 E-Prescribing Not sent due to no medication given 20:32: 44 CARE CONSULTANT CPT-G8445 E-Prescribing Not sent due to no medication given 14:43: 31 CARE CONSULTANT CPT-G8445 E-Prescribing Not sent due to no medication given 20:01: 57 CARE CONSULTANT CPT-G8445 E-Prescribing Not sent due to no medication given 16:57: 33 CDT CPT-G8445 E-Prescribing Not sent due to no medication given 14:43: 50 CDT CPT-G8445 E-Prescribing Not sent due to no medication given 15:02: 07 CDT CPT-G8443 E-Prescribing Medication Sent 14:44:46 CDT CPT-G8443 E-Prescribing Medication Sent 16:13:39 CDT CPT-79400 Biopsy, skin/subcut/mucous membrane; sngl lsn 15:46:15 CDT CPT-G8445 E-Prescribing Not sent due to no medication given 14:23: 32 CDT CPT-G0438 Medicare Annual Wellness Visit Initial 14:23:32 CDT CPT-G8445 E-Prescribing Not sent due to no medication given 15:57: 50 CDT CPT-G8443 E-Prescribing Medication Sent 15:52:15 CARE CONSULTANT CPT-G8443 E-Prescribing Medication Sent 15:08:06 CDT CPT-58557 Injection, Pneumovax 16:28:10 CDT CPT-G8443 E-Prescribing Medication Sent 15:52:30 CDT CPT-32745 EKG w/ Interpretation 17:24:06 CDT CPT-27363 EKG w/ Interpretation 11:58:31 CDT
--- OUTSIDE RECORDS SUMMARY | 2017-12-16 05:26 | XMS REPORT | Clinical Summary ---
Author Author User, [employer] Organization Lorene Durbin DO, FACP Address Unknown [...] MG TABS 1 PO QD FOLIC ACID 39954148320 No Longer Active Lorene Durbin TRAZODONE HCL 100 MG TABS 1 PO AT HS TRAZODONE HCL 64724769034 Active Lorenedada Durbin PULMICORT 0.5 MG/2ML SUSP I VIAL-INHALE ORALLY DAILY BUDESONIDE 32394433470 Active Lorenedada Dubrin PREDNISONE 5 MG TABS 1 PO DAILY PREDNISONE 10757988559 Active Lorenedada Durbin NOVOLOG FLEXPEN 100 UNIT/ML SOPN INJECT 3 SQ BEFORE MEALS INSULIN ASPART 69520335615 Active Lorenedada Durbin IPRATROPIUM-ALBUTEROL 0.5-2.5 (3) MG/3ML SOLN 1 VIAL INHALE ORALLY TID 09/17 IPRATROPIUM-ALBUTEROL 48339185951 Active Lorenedada Durbin DEPAKOTE SPRINKLES 125 MG CPSP 1 TIME DAILY DIVALPROEX SODIUM 25456984884 Active Lorenedada Durbin EXELON 4.6 MG/24HR PT24 APPLY PATCH DAILY RIVASTIGMINE 84233171091 Active Lorene Durbin FOLIC ACID 1 MG TABS 1 PO DAILY FOLIC ACID 44648693713 Active Lorenedada Durbin MELATONIN 3 MG TABS 1 PO AT HS FOR INSOMNIA MELATONIN 47829188873 Active Lorenedada Durbin MIRALAX POWD 17 GRAMS PO BID POLYETHYLENE GLYCOL 3350 22917237786 Active Lorenedada Durbin NORVASC 10 MG TABS 1 PO DAILY AMLODIPINE BESYLATE 80112307298 Active Lorenedada Durbin CELEXA 20 MG TABS 1 PO DAILY CITALOPRAM HYDROBROMIDE 35831390151 Active Lorene Meryl Durbin PAXIL 20 MG TAB 1 PO DAILY PAROXETINE HCL 51148377268 No Longer Active Lorene Meryl Durbin BISACODYL LAXATIVE 10 MG SUPP 1 WV QD PRN constipation BISACODYL 75275702241 No Longer Active Lorene Meryl Durbin COREG 6.25 MG TABS 1 PO BID CARVEDILOL 01382287713 Active Lorene Meryl Durbin BENADRYL 25 MG CAP 1 PO TID prn DIPHENHYDRAMINE HCL 17903538159 No Longer Active Lorene Meryl Durbin LACTULOSE SOLN 30 ML PO BID PRN Constipation LACTULOSE SOLN 85491873066 No Longer Active Lorene Meryl Durbin LASIX 40 MG TAB 1 PO MWF FUROSEMIDE 21876164435 No Longer Active Lorene Meryl Durbin VITAMIN D 1000 UNIT TABS 1 PO Daily CHOLECALCIFEROL 91774521929 Active Lorene Meryl Durbin ZOCOR 20 MG TABS 1 PO DAILY SIMVASTATIN 40369946170 Active Elizabeth Dixon FINASTERIDE 5 MG TABS 1 PO DAILY FINASTERIDE 80184151142 Active Lorene Meryl Durbin NAMENDA 10 MG TABS 1 PO BID MEMANTINE HCL 12179008320 Active Elizabeth Dixon KENALOG 0.1 % CREA apply to affected areas BID TRIAMCINOLONE ACETONIDE No Longer Active Lorene Meryl Durbin DILANTIN 100 MG CAP 1 PO at 7am and 2 pm and 2 PO at HS PHENYTOIN SODIUM EXTENDED 64671659296 No Longer Active Lorene Meryl Durbin PREDNISONE 20 MG TAB 1 PO daily for 7 days then resume 5mg dosing as previous PREDNISONE 51125951284 No Longer Active Lorene Meryl Durbin AUGMENTIN 500-125 MG TAB 1 PO BID AMOXICILLIN-POT CLAVULANATE 20436137674 No Longer Active Lorene Meryl Durbin OCUFLOX 0.3 % SOLN 2 drops in right ear TID for 7 days OFLOXACIN 36137518413 No Longer Active Lorene Meryl Durbin PREDNISONE 20 MG TAB 1 PO daily for 7 days PREDNISONE 71459631100 No Longer Active Lorene Meryl Durbin KENALOG 0.1 % CREA apply to affected areas BID TRIAMCINOLONE ACETONIDE No Longer Active Lorene Meryl Durbin ATARAX 25 MG TAB 1 PO Q6hrs prn itching HYDROXYZINE HCL No Longer Active Lorene Meryl Durbin DETROL LA 4 MG CP24 1 PO daily TOLTERODINE TARTRATE 84088978153 No Longer Active Lorene Meryl Durbin FINASTERIDE 5 MG TABS 1 PO BID FINASTERIDE 07782190375 No Longer Active Lorene Meryl Durbin BACTRIM DS 800-160 MG TAB 1 PO MWF TRIMETHOPRIM- SULFAMETHOXAZOLE 74945246057 No Longer Active Lorenedada Durbin NYSTATIN POWD Apply Topically to groin BID for gaulding NYSTATIN 78656618338 No Longer Active Lorenedada Durbin TERBINAFINE HCL 1 % CREA Apply to affected area BID TERBINAFINE HCL 73755495472 No Longer Active Lorene Meryl Durbin CALTRATE 600 PLUS-VIT D 600-200 MG-IU TABS 1 PO BID CALCIUM-VITAMIN D Active Elizabeth Dixon VALTREX 1 GM TAB 1 PO BID VALACYCLOVIR HCL 72110693804 No Longer Active Lorene Meryl Durbin TESSALON 200 MG CAPS 1 PO TID prn cough BENZONATATE 78345122349 No Longer Active Elizabeth Dixon PREDNISONE 10 MG TABS 1 PO QD PREDNISONE 66547987801 No Longer Active Lorene Meryl Durbin TESSALON 200 MG CAPS 1 PO TID prn cough BENZONATATE 63759078085 No Longer Active Lorene Meryl Durbin FLOMAX 0.4 MG CAPS 1 PO QD for urinary retention TAMSULOSIN HCL 81120952596 Active Elizabeth Dixon OMEPRAZOLE 40 MG CPDR 1 PO QD OMEPRAZOLE 98321870697 Active Elizabeth Dixon FERROUS SULFATE 325 (65 FE) MG TABS 1 PO BID FERROUS SULFATE 59405243199 Active Elizabeth Dixon COLACE 100 MG CAPS 1 PO BID prevent constipation DOCUSATE SODIUM 36816765224 Active Elizabeth Dixon ACETAMINOPHEN 325 MG TABS 2 PO Q 4hrs PRN pain or fever ACETAMINOPHEN 75178193301 Active Lorene Meryl Durbin IMURAN 50 MG TABS 3 po daily AZATHIOPRINE 32309107486 No Longer Active Lorene Meryl Durbin TOVIAZ 4 MG [id number] 1 po daily FESOTERODINE FUMARATE 79111722915 No Longer Active Lorene Meryl Durbin COREG 12.5 MG TABS 1 po bid CARVEDILOL 72708956292 No Longer Active Lorene Meryl Durbin WAVESENSE PRESTO TEST STRP Check BS Daily DX: DIABETES GLUCOSE BLOOD 61802010467 No Longer Active Lorene Meryl Durbin OMEPRAZOLE 40 MG CPDR 1 PO Daily OMEPRAZOLE 84299597491 No Longer Active Lorene Meryl Durbin FLOMAX 0.4 MG CAPS 1 PO Daily TAMSULOSIN HCL 56428853274 No Longer Active Lorene Meryl Durbin MEPRON 750 MG/5ML SUSP 5 ml PO BID ATOVAQUONE 28059479957 No Longer Active Lorene Meryl Durbin PREDNISONE 5 MG TABS 2 po daily PREDNISONE 47255095420 No Longer Active Lorene Meryl Durbin TERAZOSIN HCL 2 MG CAPS 1 PO qhs TERAZOSIN HCL 38431624343 No Longer Active Lorene Meryl Durbin VITAMIN D 1000 UNIT TABS 1 PO Daily CHOLECALCIFEROL 67971375384 No Longer Active Lorene Meryl Durbin PEPCID 20 MG TAB 1 PO daily FAMOTIDINE 09945275308 No Longer Active Lorene Meryl Durbin VITAMIN B-12 100 MCG TABS 1 po daily CYANOCOBALAMIN 66483057717 No Longer Active Lorene Meryl Durbin IRON 325 (65 FE) MG TABS 1 PO daily FERROUS SULFATE 98438197738 No Longer Active Lorene Meryl Durbin CALCIUM 600 1500 MG TABS 1 PO QAM and 2 PO QHS CALCIUM CARBONATE 51265680598 No Longer Active Lorene Meryl Durbin MULTIVITAMINS TABS 1 po daily MULTIPLE VITAMIN 50320295144 No Longer Active Lorene Meryl Durbin FISH OIL 1000 MG CAPS 1 po daily OMEGA-3 FATTY ACIDS 62054290000 No Longer Active Lorene Meryl Durbin ASPIRIN 81 MG TAB 1 PO QD ASPIRIN 80380595096 No Longer Active Lorene Meryl Durbin NORVASC 5 MG TAB 1 PO Daily AMLODIPINE BESYLATE 76809085511 No Longer Active Lorene Meryl Durbin CLOBETASOL PROPIONATE 0.05 % CREA Apply small amount to affected areas on arms BID CLOBETASOL PROPIONATE 66683787323 No Longer Active Lorene Meryl Durbin LOTRISONE 0.05-1 % CREAM Apply a small amount to affected area on back BID CLOTRIMAZOLE-BETAMETHASONE 63394213619 No Longer Active Lorene Meryl Durbin CYCLOPHOSPHAMIDE 25 MG TABS take 5 tablets once daily CYCLOPHOSPHAMIDE 71147856031 No Longer Active Lorene Meryl Durbin PERCOCET 5-325 MG TAB 1 PO Q 6 hours OXYCODONE- ACETAMINOPHEN 82779263381 No Longer Active Lorene Meryl Durbin VALTREX 1 GM TAB 1 PO BID VALACYCLOVIR HCL 33780433037 No Longer Active Lorene Meryl Durbin ACCUPRIL 10 MG TABS 1 po daily QUINAPRIL HCL 91599368470 No Longer Active Lorene Meryl Durbin COZAAR 25 MG TAB 1 PO daily LOSARTAN POTASSIUM 30451071636 No Longer Active Elizabeth Dixon MAGNESIUM OXIDE 400 MG CAPS 1 PO daily MAGNESIUM OXIDE 20409263913 No Longer Active Lorene Meryl Durbin LOTRISONE 0.05-1 % CREAM Apply to affected areas twice daily prn CLOTRIMAZOLE-BETAMETHASONE 22403169062 No Longer Active Lorene Meryl Durbin FERROUS SULFATE 100 MG 1 PO daily FERROUS SULFATE 100 MG No Longer Active Lorene Meryl Durbin QUALAQUIN 324 MG CAPS 1 PO QHS prn QUININE SULFATE 10602409183 No Longer Active Lorene Meryl Durbin ROBITUSSIN A-C 10-100 MG/5ML SYRUP 1 teaspoon PO Q 4-6 hr prn ROBITUSSIN A-C 10-100 MG/5ML SYRUP 07097878064 No Longer Active Lorene Meryl Durbin BIAXIN XL PAC 500 MG TB24 2 pills at same time daily for 7 days CLARITHROMYCIN 02895819431 No Longer Active Lorene Meryl Durbin TESSALON 200 MG CAPS 1 PO TID prn cough BENZONATATE 23051499544 No Longer Active Lorene Meryl Durbin ROBITUSSIN A-C 10-100 MG/5ML SYRUP 1 teaspoon PO Q 4-6 hr prn ROBITUSSIN A-C 10-100 MG/5ML SYRUP 99735504551 No Longer Active Lorene Meryl Durbin BIAXIN XL PAC 500 MG TB24 2 pills at same time daily for 7 days CLARITHROMYCIN 49402156924 No Longer Active Lorene Meryl Durbin KEFLEX 500 MG CAP 1 PO TID for 7 days CEPHALEXIN 00287207402 No Longer Active Lorene Meryl Durbin FERROUS SULFATE 325 (65 FE) MG TABS 1 PO daily FERROUS SULFATE 98811943822 No Longer Active Lorene Meryl Durbin CINNAMON 500 MG CAPS 1 po daily CINNAMON 10576170900 No Longer Active Lorene Meryl Durbin XANAX 0.25 MG TABS 1 po q 4-6 hrs prn ALPRAZOLAM 88526587358 No Longer Active Lorene Meryl Durbin TRIAMCINOLONE ACETONIDE 0.1 % OINT Apply as directed TRIAMCINOLONE ACETONIDE 37969017988 No Longer Active Lorene Meryl Durbin KERALAC 50 % GEL as needed UREA 50400342695 No Longer Active Lorene Meryl Durbin AMITRIPTYLINE HCL 25 MG TAB 1 PO daily at night prn AMITRIPTYLINE HCL 04316037330 No Longer Active Lorene Meryl Durbin ZOCOR 5 MG TABS 1 PO QOD (on hold) SIMVASTATIN 96055344776 No Longer Active Lorene Meryl Durbin VIAGRA 50 MG TABS prn SILDENAFIL CITRATE 17680138787 No Longer Active Lorene Meryl Durbin DARVOCET-N 100 100-650 MG TABS 1 po q 6 hrs. prn pain PROPOXYPHENE N-APAP 31992756523 No Longer Active Lorene Meryl Durbin CYCLOBENZAPRINE HCL 10 MG TABS 1 po q 12 hrs. prn CYCLOBENZAPRINE HCL 12735159916 No Longer Active Lorene Meryl Durbin LORTAB 5 5-500 MG TABS 1 as needed HYDROCODONE- ACETAMINOPHEN 38953448461 No Longer Active Lorenedada Durbin ALBUTEROL 90 MCG/ACT AERS 2 puffs Q4-6hrs prn ALBUTEROL 18675667433 No Longer Active Lorenedada Durbin ROBITUSSIN A-C 10-100 MG/5ML SYRUP 5cc PO Q 4-6 hr prn ROBITUSSIN A-C 10-100 MG/5ML SYRUP 07180909364 No Longer Active Lorene Meryl Durbin ADVAIR DISKUS 100-50 MCG/DOSE MISC 1 puff BID FLUTICASONE-SALMETEROL 46831525879 No Longer Active Lorenedada Durbin AUGMENTIN 500-125 MG TABS 1 PO BID AMOXICILLIN-POT CLAVULANATE 09058303555 No Longer Active Lorene Meryl Durbin PLAVIX 75 MG TABS 1 po daily CLOPIDOGREL BISULFATE 84698379025 No Longer Active Lorene Meryl Durbin AMOXIL 500 MG TABS 1 PO TID AMOXICILLIN 02348549079 No Longer Active Lorene Durbin Immunizations Vaccine [...] Value Unit Range Description Clinical Lists Update: [facility] - Chemistry Estimated Glomerular Filtration [...] (RBC) count 3.54 10*6/mm3 Clinical Lists Update: CBC,[facility] - Chemistry sodium, serum 139 mmol/L potassium, serum 5.0 mmol/L creatinine, serum 1.9 mg/dL carbon dioxide, venous blood 31.0 mmol/L chloride, serum 103 mmol/L calcium, serum 9.4 mg/dL urea nitrogen, blood 27 mg/dL Estimated Glomerular Filtration Rate (calc) 37 mL/min/1.73m2 glucose, plasma fasting 133 mg/dL anion gap, serum 10 Clinical Lists Update: CBC,BMP [facility] - Hematology hemoglobin, blood 13.2 g/dL platelet count 137 10*3/mm3 erythrocyte (RBC) count 4.32 10*6/mm3 leukocyte count, blood 8.6 10*3/mm3 mean corpuscular volume, RBC 100 fL red blood cell distribution width 14.0 % hematocrit, blood 43 % Clinical Lists Update: [...] Update: CBC,BMP,[facility] - Hematology mean corpuscular volume, RBC 101 fL red blood cell distribution width 14.6 % leukocyte count, blood 8.9 10*3/mm3 hematocrit, blood 44 % hemoglobin, blood 13.4 g/dL platelet count 145 10*3/mm3 erythrocyte (RBC) count 4.31 10*6/mm3 Clinical Lists Update: CBC,BMP,[facility] - Urinalysis blood in urine (hemoglobin) by dipstick trace protein, urine, semiquantitative (dipstick) neg epithelial cells, urine none /[LPF] hyaline casts, urine none /[LPF] bacteria, urine microscopy none RBC urine by microscopy none WBC urine on microscopy none {Cells}/[HPF] appearance, urine Clear Yellow urobilinogen, urine, semiquantitative (dipstick) 0.2 specific gravity, urine 1.020 pH, urine, semiquantitative 6.5 glucose, urine, semiquantitative neg bilirubin, urine neg ketones, urine, by test strip neg nitrite, urine, semiquantitative neg mucus on urinalysis none Clinical Lists Update: CBC,CMP,FLP,HGA1C,MICROALBUMIN,FERRITIN - Chemistry alanine [...] mg/dL Clinical Lists Update: CBC,CMP,FLP,TSH,HgA1c,Ferritin - Chemistry urea nitrogen, blood 28 mg/dL alkaline phosphatase, [...] serum 107 mmol/L calcium, serum 9.0 mg/dL Clinical Lists Update: CBC,CMP,FLP,TSH,HgA1c,Ferritin - Hematology red blood cell distribution width 13.8 % mean corpuscular volume, RBC 97 fL leukocyte count, blood 7.5 10*3/mm3 erythrocyte (RBC) count 4.10 10*6/mm3 platelet count 132 10*3/mm3 hemoglobin, blood 12.6 g/dL hematocrit, blood 40 % Clinical Lists Update: [...] mmol/L Clinical Lists Update: CBC,CMP,FLP.UA - Hematology platelet count 137 10*3/mm3 erythrocyte (RBC) count 4.10 10*6/mm3 leukocyte count, blood 7.9 10*3/mm3 mean corpuscular volume, RBC 99 fL red blood cell distribution width 14.2 % hematocrit, blood 41 % hemoglobin, blood 12.9 g/dL Clinical Lists Update: CBC,CMP,FLP.UA - Urinalysis appearance, urine Clear Yellow urobilinogen, urine, semiquantitative (dipstick) 0.2 specific gravity, urine 1.015 pH, urine, semiquantitative 7.0 nitrite, urine, semiquantitative neg WBC urine on microscopy none {Cells}/[HPF] RBC urine by microscopy none bacteria, urine microscopy none hyaline casts, urine none /[LPF] epithelial cells, urine 0-5 /[LPF] mucus on urinalysis none blood in urine (hemoglobin) by dipstick trace ketones, urine, by test strip neg protein, urine, semiquantitative (dipstick) neg glucose, urine, semiquantitative neg bilirubin, urine neg Clinical Lists Update: CMP - Chemistry [...] blood 25.0 mmol/L chloride, serum 107 mmol/L alkaline phosphatase, serum 23 U/L urea nitrogen, blood 21 mg/dL calcium, serum 8.1 mg/dL glucose, plasma fasting 89 mg/dL Clinical Lists Update: [facility] - Chemistry Estimated Glomerular Filtration Rate (calc) 38 mL/min/1.73m2 alkaline phosphatase, serum 30 U/L urea nitrogen, [...] serum 143 mmol/L anion gap, serum 11 albumin, serum 3.5 g/dL glucose, plasma fasting 125 mg/dL Clinical Lists Update: [facility] - Hematology mean corpuscular volume, RBC 94.9 fL leukocyte count, blood 9.78 10*3/mm3 erythrocyte (RBC) count 4.28 10*6/mm3 platelet count 93 10*3/mm3 hemoglobin, blood 13.5 g/dL hematocrit, blood 40.6 % red blood cell distribution width 12.9 % mean corpuscular volume, RBC 94 fL leukocyte count, blood 6.5 10*3/mm3 erythrocyte (RBC) count 4.00 10*6/mm3 platelet count 125 10*3/mm3 hemoglobin, blood 12.6 g/dL hematocrit, blood 38 % red blood cell distribution width 12.8 % Clinical Lists Update: [facility] - Urinalysis blood in urine (hemoglobin) by dipstick neg [...] by test strip neg bilirubin, urine neg protein, urine, semiquantitative (dipstick) neg glucose, urine, semiquantitative neg Office Visit: Dr Durbin's Check Up: [...] % Encounters Code Encounter Date Provider Facility CPT-07861 Ofc Vst, Est Level III 16:47:49 CDT Lorene Durbin DO, FACP CPT-10067 Ofc Vst, Est Level III 16:04:23 CDT Lorene Durbin DO, FACP CPT-85073 Ofc Vst, Est Level III 19:00:13 A R SPECIALIST Lorene Durbin DO, FACP CPT-76175 Ofc Vst, Est Level III 21:20:47 CDT Lorene Durbin DO, FACP CPT-24577 Ofc Vst, Est Level III 20:32:44 A R SPECIALIST Lorene Durbin DO, FACP CPT-94441 Ofc Vst, Est Level III 14:43:31 A R SPECIALIST Lorene Sorensen Durbin, DO, FACP CPT-73877 Ofc Vst, Est Level III 20:01:57 A R SPECIALIST Lorene Meryl Paulson S Durbin, DO, FACP CPT-51529 Ofc Vst, Est Level III 16:57:33 CDT Lorene Meryl Sorensen Durbin, DO, FACP CPT-68004 Ofc Vst, Est Level III 14:43:50 CDT Lorene Meryl Sorensen Durbin, DO, FACP CPT-36165 Ofc Vst, Est Level III 15:02:07 CDT Lorene Meryl Sorensen Durbin, DO, FACP CPT-06193 Ofc Vst, Est Level III 14:44:46 CDT Lorene Meryl Sorensen Ramakrishna, DO, FACP CPT-54889 Ofc Vst, Est Level IV 16:13:39 CDT Lorenedada Sorensen Durbin, DO, FACP CPT-88610 Ofc Vst, Est Level III 11:48:41 CDT Lorene Meryl Sorensen Durbin, DO, FACP CPT-72783 Ofc Vst, Est Level III 15:46:15 CDT Lorenedada Sorensen Ramakrishna, DO, FACP CPT-57378 Ofc Vst, Est Level IV 15:57:50 CDT Lorene Meryl Sorensen Durbin, DO, FACP CPT-62889 Ofc Vst, Est Level III 16:05:36 A R SPECIALIST Lorene Meryl Paulson S Durbin, DO, FACP CPT-85888 Ofc Vst, Est Level IV 15:52:15 A R SPECIALIST Lorene Meryl Sorensen Durbin, DO, FACP CPT-27502 Ofc Vst, Est Level III 15:08:06 CDT Lorene Meryl Paulson S Ramakrishna, DO, FACP CPT-38005 Ofc Vst, Est Level IV 15:06:29 CDT Lorene Meryl Sorensen Ramakrishna, DO, FACP CPT-63725 Ofc Vst, Est Level IV 13:29:16 CDT Lorene Meryl Sorensen Ramakrishna, DO, FACP CPT-94678 Ofc Vst, Est Level V 13:50:55 A R SPECIALIST Lorenedada Sorensen Ramakrishna, DO, FACP CPT-60503 Ofc Vst, Est Level IV 11:10:14 A R SPECIALIST Lorene Sorensen Ramakrishna, DO, FACP CPT-48809 Ofc Vst, Est Level III 15:28:22 CDT Lorene Meryl Sorensen Ramakrishna, DO, FACP CPT-82604 Ofc Vst, New Level IV 14:17:27 CDT Lorene Meryl Sorensen Ramakrishna, DO, FACP CPT-28295 Ofc Vst, New Level II 14:17:27 CDT Lorene Meryl Sorensen Ramakrishna, DO, FACP CPT-90804 Ofc Vst, Est Level IV 10:59:16 CDT Lorenedada Sorensen Ramakrishna, DO, FACP CPT-37313 Ofc Vst, Est Level II 16:12:29 CDT Lorene Meryl Sorensen Ramakrishna, DO, FACP CPT-01555 Ofc Vst, Est Level IV 10:53:48 CDT Lorenedada Sorensen Ramakrishna, DO, FACP CPT-77484 Office Consult, Level III 11:11:19 A R SPECIALIST Lorene Sorensen Ramakrishna, DO, FACP CPT-29193 Ofc Vst, Est Level IV 11:12:23 CDT Lorene Meryl Sorensen Ramakrishna, DO, FACP CPT-44637 Ofc Vst, Est Level IV 11:46:11 CDT Lorene Meryl Sorensen Durbin, DO, FACP CPT-53156 Ofc Vst, Est Level IV 15:36:14 CDT Lorene Meryl Sorensen Durbin, DO, FACP CPT-12190 Ofc Vst, Est Level IV 11:36:09 A R SPECIALIST Lorene Meryl Sorensen Durbin, DO, FACP CPT-43413 Ofc Vst, Est Level IV 16:28:10 CDT Lorene Meryl Sorensen Durbin, DO, FACP CPT-27193 Ofc Vst, Est Level IV 15:52:30 CDT Lorene Meryl Sorensen Durbin, DO, FACP CPT-57958 Ofc Vst, Est Level III 11:48:57 CDT Lorene Meryl Sorensen Durbin, DO, FACP CPT-97790 Ofc Vst, Est Level IV 09:15:20 A R SPECIALIST Lorene Meryl Sorensen Durbin, DO, FACP CPT-97630 Ofc Vst, Est Level IV 16:43:12 A R SPECIALIST Lorene Sorensen Durbin, DO, FACP CPT-22127 Ofc Vst, Est Level III 14:52:39 CDT Lorene Meryl Sorensen Durbin, DO, FACP CPT-60253 Ofc Vst, Est Level IV 11:27:37 CDT Lorene Meryl Sorensen Durbin, DO, FACP CPT-04536 Ofc Vst, Est Level III 09:53:01 A R SPECIALIST Lorene Sorensen Durbin, DO, FACP CPT-60061 Ofc Vst, Est Level IV 09:49:25 CDT Lorene Meryl Sorensen Durbin, DO, FACP CPT-00984 Ofc Vst, Est Level IV 11:33:29 CDT Lorene Durbin, DO, FACP CPT-78017 Ofc Vst, Est Level IV 14:11:50 A R SPECIALIST Lorene Durbin [facility] [place] CPT-18315 Ofc Vst, Est Level IV 17:26:08 A R SPECIALIST Lorene Durbin [facility] [place] CPT-66727 Ofc Vst, Est Level IV 10:40:42 A R SPECIALIST Lorene Durbin [facility] [place] CPT-28103 Ofc Vst, Est Level IV 15:05:22 CDT Lorene Meryl Durbin [facility] [place] CPT-90778 Ofc Vst, Est Level IV 14:42:32 CDT Lorene Durbin [facility] [place] CPT-45722 Ofc Vst, Est Level III 16:05:07 CDT Lorene Durbin [facility] [place] CPT-67482 Ofc Vst, Est Level V 17:24:06 CDT Lorenedada Durbin [facility] [place] CPT-83238 Ofc Vst, Est Level IV 16:02:46 CDT Lorene Durbin [facility] [place] CPT-46996 Ofc Vst, Est Level III 12:50:41 A R SPECIALIST Lorene Durbin [facility] [place] CPT-31714 Ofc Vst, Est Level II 12:09:58 A R SPECIALIST Lorene Durbin [facility] [place] CPT-86134 Ofc Vst, Est Level IV 09:31:48 A R SPECIALIST Lorene Durbin [facility] [place] CPT-80756 Ofc Vst, Est Level III 10:36:21 A R SPECIALIST Lorene Durbin [facility] [place] CPT-36250 Ofc Vst, Est Level IV 15:48:05 CDT Lorene Durbin [facility] [place] CPT-31068 Ofc Vst, Est Level III 11:58:31 CDT Lorene Meryl Durbin [facility] [place] CPT-74468 Ofc Vst, Est Level IV 18:14:00 CDT Lorene Durbin [facility] [place] CPT-62846 Ofc Vst, New Level III 19:15:23 A R SPECIALIST Lorenedada Durbin [facility] [place] Procedures Code Procedure Name Date Entry Date Standard Description CPT-G0439 Medicare Annual Wellness Visit 14:14:39 CDT CPT-G8445 E-Prescribing Not sent due to no medication given 21:20: 47 CDT CPT-G8445 E-Prescribing Not sent due to no medication given 20:32: 44 A R SPECIALIST CPT-G8445 E-Prescribing Not sent due to no medication given 14:43: 31 A R SPECIALIST CPT-G8445 E-Prescribing Not sent due to no medication given 20:01: 57 A R SPECIALIST CPT-G8445 E-Prescribing Not sent due to no medication given 16:57: 33 CDT CPT-G8445 E-Prescribing Not sent due to no medication given 14:43: 50 CDT CPT-G8445 E-Prescribing Not sent due to no medication given 15:02: 07 CDT CPT-G8443 E-Prescribing Medication Sent 14:44:46 CDT CPT-G8443 E-Prescribing Medication Sent 16:13:39 CDT CPT-37957 Biopsy, skin/subcut/mucous membrane; sngl lsn 15:46:15 CDT CPT-G8445 E-Prescribing Not sent due to no medication given 14:23: 32 CDT CPT-G0438 Medicare Annual Wellness Visit Initial 14:23:32 CDT CPT-G8445 E-Prescribing Not sent due to no medication given 15:57: 50 CDT CPT-G8443 E-Prescribing Medication Sent 15:52:15 A R SPECIALIST CPT-G8443 E-Prescribing Medication Sent 15:08:06 CDT CPT-93367 Injection, Pneumovax 16:28:10 CDT CPT-G8443 E-Prescribing Medication Sent 15:52:30 CDT CPT-58702 EKG w/ Interpretation 17:24:06 CDT CPT-38070 EKG w/ Interpretation 11:58:31 CDT
--- OUTSIDE RECORDS SUMMARY | 2017-12-16 05:29 | XMS REPORT | Clinical Summary ---
Author Author User, Lellan Organization Lorene Durbin DO, FACP Address Unknown [...] Instruction BISACODYL LAXATIVE 10 MG SUPP 1 FL QD PRN constipation BISACODYL [id number] No Longer Active Lorene Durbin PREDNISONE 2.5 MG TABS 1 PO DAILY PREDNISONE 60389182605 Active Lorenedada Durbin COREG 6.25 MG TABS 1 PO BID CARVEDILOL 11166358715 Active Lorenedada Durbin BENADRYL 25 MG CAP 1 PO TID prn DIPHENHYDRAMINE HCL 66074354651 No Longer Active Lorenedada Durbin LACTULOSE SOLN 30 ML PO BID PRN Constipation LACTULOSE SOLN 87772752020 No Longer Active Lorene Durbin LASIX 40 MG TAB 1 PO MWF FUROSEMIDE 60292565720 No Longer Active Lorene Durbin VITAMIN D 1000 UNIT TABS 1 PO Daily CHOLECALCIFEROL 27762849656 Active Lorene Durbin ZOCOR 20 MG TABS 1 PO DAILY SIMVASTATIN 53743310230 Active Elizabeth Dixon FINASTERIDE 5 MG TABS 1 PO DAILY FINASTERIDE 72537569507 Active Lorene Durbin NAMENDA 10 MG TABS 1 PO BID MEMANTINE HCL 48101459409 Active Elizabeth Dixon KENALOG 0.1 % CREA apply to affected areas BID TRIAMCINOLONE ACETONIDE No Longer Active Lorene Durbin DILANTIN 100 MG CAP 1 PO at 7am and 2 pm and 2 PO at HS PHENYTOIN SODIUM EXTENDED 81706101772 No Longer Active Lorene Durbin PREDNISONE 20 MG TAB 1 PO daily for 7 days then resume 5mg dosing as previous PREDNISONE 31940127632 No Longer Active Lorene Meryl Durbin AUGMENTIN 500-125 MG TAB 1 PO BID AMOXICILLIN-POT CLAVULANATE 34028261025 No Longer Active Lorene Meryl Durbin OCUFLOX 0.3 % SOLN 2 drops in right ear TID for 7 days OFLOXACIN 61841806641 No Longer Active Lorene Meryl Durbin PREDNISONE 20 MG TAB 1 PO daily for 7 days PREDNISONE 43186631445 No Longer Active Lorene Meryl Durbin KENALOG 0.1 % CREA apply to affected areas BID TRIAMCINOLONE ACETONIDE No Longer Active Lorene Meryl Durbin ATARAX 25 MG TAB 1 PO Q6hrs prn itching HYDROXYZINE HCL No Longer Active Lorene Meryl Durbin DETROL LA 4 MG CP24 1 PO daily TOLTERODINE TARTRATE 86764683059 No Longer Active Lorene Meryl Durbin FINASTERIDE 5 MG TABS 1 PO BID FINASTERIDE 48180260087 No Longer Active Lorenedada Durbin BACTRIM DS 800-160 MG TAB 1 PO MWF TRIMETHOPRIM- SULFAMETHOXAZOLE 59858893874 No Longer Active Lorene Meryl Durbin NYSTATIN POWD Apply Topically to groin BID for gaulding NYSTATIN 56173605936 No Longer Active Lorene Meryl Durbin TERBINAFINE HCL 1 % CREA Apply to affected area BID TERBINAFINE HCL 48547589147 No Longer Active Lorene Meryl Durbin CALTRATE 600 PLUS-VIT D 600-200 MG-IU TABS 1 PO BID CALCIUM-VITAMIN D Active Elizabeth Dixon VALTREX 1 GM TAB 1 PO BID VALACYCLOVIR HCL 18948164657 No Longer Active Lorene Meryl Durbin TESSALON 200 MG CAPS 1 PO TID prn cough BENZONATATE 15651526963 No Longer Active Elizabethjenn Dixon PREDNISONE 10 MG TABS 1 PO QD PREDNISONE 11697135792 No Longer Active Lorene Durbin PAXIL 20 MG TAB 1 PO DAILY PAROXETINE HCL 97272560641 Active Elizabeth Dixon TESSALON 200 MG CAPS 1 PO TID prn cough BENZONATATE 79991108642 No Longer Active Lorenedada Durbin FLOMAX 0.4 MG CAPS 1 PO QD for urinary retention TAMSULOSIN HCL 89557705270 Active Elizabeth Lizarragatis OMEPRAZOLE 40 MG CPDR 1 PO QD OMEPRAZOLE 02577319844 Active Elizabeth Lizarragatis FOLIC ACID 1 MG TABS 1 PO QD FOLIC ACID 29855237624 Active Elizabeth Dixon FERROUS SULFATE 325 (65 FE) MG TABS 1 PO BID FERROUS SULFATE 01844677565 Active Elizabeth Dixon COLACE 100 MG CAPS 1 PO BID prevent constipation DOCUSATE SODIUM 09786431227 Active Elizabeth Dixon ACETAMINOPHEN 325 MG TABS 2 PO Q 4hrs PRN pain or fever ACETAMINOPHEN 82270099534 Active Lorenedada Durbin IMURAN 50 MG TABS 3 po daily AZATHIOPRINE 94315091499 No Longer Active Lorenedada Durbin TOVIAZ 4 MG SH26D-OHS 1 po daily FESOTERODINE FUMARATE 67638510079 No Longer Active Lorenedada Durbin COREG 12.5 MG TABS 1 po bid CARVEDILOL 12362101302 No Longer Active Lorene Durbin WAVESENSE PRESTO TEST STRP Check BS Daily DX: DIABETES GLUCOSE BLOOD 35741065892 No Longer Active Lorene Durbin OMEPRAZOLE 40 MG CPDR 1 PO Daily OMEPRAZOLE 54595616734 No Longer Active Lorenedada Durbin FLOMAX 0.4 MG CAPS 1 PO Daily TAMSULOSIN HCL 53722744266 No Longer Active Lorene Meryl Durbin MEPRON 750 MG/5ML SUSP 5 ml PO BID ATOVAQUONE 19034525204 No Longer Active Lorene Meryl Durbin PREDNISONE 5 MG TABS 2 po daily PREDNISONE 25409936897 No Longer Active Lorene Meryl Durbin TERAZOSIN HCL 2 MG CAPS 1 PO qhs TERAZOSIN HCL 73074450685 No Longer Active Lorene Meryl Durbin VITAMIN D 1000 UNIT TABS 1 PO Daily CHOLECALCIFEROL 78381116439 No Longer Active Lorene Meryl Durbin PEPCID 20 MG TAB 1 PO daily FAMOTIDINE 19842396039 No Longer Active Lorene Meryl Durbin VITAMIN B-12 100 MCG TABS 1 po daily CYANOCOBALAMIN 26268070248 No Longer Active Lorene Meryl Durbin IRON 325 (65 FE) MG TABS 1 PO daily FERROUS SULFATE 49107238694 No Longer Active Lorene Meryl Durbin CALCIUM 600 1500 MG TABS 1 PO QAM and 2 PO QHS CALCIUM CARBONATE 33465531822 No Longer Active Lorene Meryl Durbin MULTIVITAMINS TABS 1 po daily MULTIPLE VITAMIN 74430398594 No Longer Active Lorene Meryl Durbin FISH OIL 1000 MG CAPS 1 po daily OMEGA-3 FATTY ACIDS 20425835426 No Longer Active Lorene Meryl Durbin ASPIRIN 81 MG TAB 1 PO QD ASPIRIN 45971997256 No Longer Active Lorene Meryl Durbin NORVASC 5 MG TAB 1 PO Daily AMLODIPINE BESYLATE 32432859638 No Longer Active Lorene Meryl Durbin CLOBETASOL PROPIONATE 0.05 % CREA Apply small amount to affected areas on arms BID CLOBETASOL PROPIONATE 30814835118 No Longer Active Lorene Meryl Durbin LOTRISONE 0.05-1 % CREAM Apply a small amount to affected area on back BID CLOTRIMAZOLE-BETAMETHASONE 77446256213 No Longer Active Lorene Meryl Durbin CYCLOPHOSPHAMIDE 25 MG TABS take 5 tablets once daily CYCLOPHOSPHAMIDE 30303398695 No Longer Active Lorene Meryl Durbin PERCOCET 5-325 MG TAB 1 PO Q 6 hours OXYCODONE- ACETAMINOPHEN 15038119706 No Longer Active Lorene Meryl Durbin VALTREX 1 GM TAB 1 PO BID VALACYCLOVIR HCL 03744922882 No Longer Active Lorene Meryl Durbin ACCUPRIL 10 MG TABS 1 po daily QUINAPRIL HCL 59371503834 No Longer Active Lorene Meryl Durbin COZAAR 25 MG TAB 1 PO daily LOSARTAN POTASSIUM 53112011045 No Longer Active Elizabeth Dixon MAGNESIUM OXIDE 400 MG CAPS 1 PO daily MAGNESIUM OXIDE 83655657961 No Longer Active Lorene Meryl Durbin LOTRISONE 0.05-1 % CREAM Apply to affected areas twice daily prn CLOTRIMAZOLE-BETAMETHASONE 98861169917 No Longer Active Lorenedada Durbin FERROUS SULFATE 100 MG 1 PO daily FERROUS SULFATE 100 MG No Longer Active Lorene Meryl Durbin QUALAQUIN 324 MG CAPS 1 PO QHS prn QUININE SULFATE 58299403556 No Longer Active Lorene Meryl Durbin ROBITUSSIN A-C 10-100 MG/5ML SYRUP 1 teaspoon PO Q 4-6 hr prn ROBITUSSIN A-C 10-100 MG/5ML SYRUP 82985489188 No Longer Active Lorene Meryl Durbin BIAXIN XL PAC 500 MG TB24 2 pills at same time daily for 7 days CLARITHROMYCIN 22349370211 No Longer Active Lorene Meryl Durbin TESSALON 200 MG CAPS 1 PO TID prn cough BENZONATATE 09752923669 No Longer Active Lorene Meryl Durbin ROBITUSSIN A-C 10-100 MG/5ML SYRUP 1 teaspoon PO Q 4-6 hr prn ROBITUSSIN A-C 10-100 MG/5ML SYRUP 85040337592 No Longer Active Lorene Meryl Durbin BIAXIN XL PAC 500 MG TB24 2 pills at same time daily for 7 days CLARITHROMYCIN 73274852530 No Longer Active Lorene Meryl Durbin KEFLEX 500 MG CAP 1 PO TID for 7 days CEPHALEXIN 89605234068 No Longer Active Lorene Meryl Durbin FERROUS SULFATE 325 (65 FE) MG TABS 1 PO daily FERROUS SULFATE 44720420703 No Longer Active Lorene Meryl Durbin CINNAMON 500 MG CAPS 1 po daily CINNAMON 86188014256 No Longer Active Lorene Meryl Durbin XANAX 0.25 MG TABS 1 po q 4-6 hrs prn ALPRAZOLAM 41443300547 No Longer Active Lorene Meryl Durbin TRIAMCINOLONE ACETONIDE 0.1 % OINT Apply as directed TRIAMCINOLONE ACETONIDE 51163199283 No Longer Active Lorene Meryl Durbin KERALAC 50 % GEL as needed UREA 76736173238 No Longer Active Lorene Meryl Durbin AMITRIPTYLINE HCL 25 MG TAB 1 PO daily at night prn AMITRIPTYLINE HCL 78606656062 No Longer Active Lorene Meryl Durbin ZOCOR 5 MG TABS 1 PO QOD (on hold) SIMVASTATIN 95552896835 No Longer Active Lorene Meryl Durbin VIAGRA 50 MG TABS prn SILDENAFIL CITRATE 78646270342 No Longer Active Lorene Meryl Durbin DARVOCET-N 100 100-650 MG TABS 1 po q 6 hrs. prn pain PROPOXYPHENE N-APAP 39338453585 No Longer Active Lorenedada Durbin CYCLOBENZAPRINE HCL 10 MG TABS 1 po q 12 hrs. prn CYCLOBENZAPRINE HCL 20021195867 No Longer Active Lorene Meryl Durbin LORTAB 5 5-500 MG TABS 1 as needed HYDROCODONE- ACETAMINOPHEN 46080927710 No Longer Active Lorene Meryl Durbin ALBUTEROL 90 MCG/ACT AERS 2 puffs Q4-6hrs prn ALBUTEROL 75428308764 No Longer Active Lorene Meryl Durbin ROBITUSSIN A-C 10-100 MG/5ML SYRUP 5cc PO Q 4-6 hr prn ROBITUSSIN A-C 10-100 MG/5ML SYRUP 62805832206 No Longer Active Lorenedada Durbin ADVAIR DISKUS 100-50 MCG/DOSE MISC 1 puff BID FLUTICASONE-SALMETEROL 03498043161 No Longer Active Lorene Meryl Durbin AUGMENTIN 500-125 MG TABS 1 PO BID AMOXICILLIN-POT CLAVULANATE 99765634157 No Longer Active Lorene Meryl Durbin PLAVIX 75 MG TABS 1 po daily CLOPIDOGREL BISULFATE 34802617770 No Longer Active Lorene Meryl Durbin AMOXIL 500 MG TABS 1 PO TID AMOXICILLIN 69937642288 No Longer Active Lorenedada Durbin Immunizations Vaccine [...] 10*6/mm3 Encounters Code Encounter Date Provider Facility CPT-74479 Ofc Vst, Est Level III 16:04:23 CDT Lorene MerylJamison Levinener, DO, FACP CPT-50266 Ofc Vst, Est Level III 19:00:13 [employer] Lorenedada Durbin, DO, FACP CPT-73944 Ofc Vst, Est Level III 21:20:47 CDT Lorene Meryl Durbin, DO, FACP CPT-42333 Ofc Vst, Est Level III 20:32:44 [employer] Lorene Durbin, DO, FACP CPT-51335 Ofc Vst, Est Level III 14:43:31 [employer] Lorene Durbin, DO, FACP CPT-09460 Ofc Vst, Est Level III 20:01:57 [employer] Lorene Durbin, DO, FACP CPT-72149 Ofc Vst, Est Level III 16:57:33 CDT Lorene Durbin, DO, FACP CPT-03379 Ofc Vst, Est Level III 14:43:50 CDT Lorenedada Durbin, DO, FACP CPT-49276 Ofc Vst, Est Level III 15:02:07 CDT Lorenedada Durbin, DO, FACP CPT-99581 Ofc Vst, Est Level III 14:44:46 CDT Lorene Durbin, DO, FACP CPT-03379 Ofc Vst, Est Level IV 16:13:39 CDT Lorenedada Durbin, DO, FACP CPT-25876 Ofc Vst, Est Level III 11:48:41 CDT Lorene Meryl Sorensen Durbin, DO, FACP CPT-03614 Ofc Vst, Est Level III 15:46:15 CDT Lorene Meryl Pedersoni S Durbin, DO, FACP CPT-50128 Ofc Vst, Est Level IV 15:57:50 CDT Lorene Meryl Paulson S Durbin, DO, FACP CPT-11340 Ofc Vst, Est Level III 16:05:36 [employer] Lorene Meryl Pedersoni S Durbin, DO, FACP CPT-23761 Ofc Vst, Est Level IV 15:52:15 [employer] Lorene Meryl Pedersoni S Durbin, DO, FACP CPT-42950 Ofc Vst, Est Level III 15:08:06 CDT Lorene Meryl Sorensen Durbin, DO, FACP CPT-32704 Ofc Vst, Est Level IV 15:06:29 CDT Lorene Meryl Pedersoni S Durbin, DO, FACP CPT-48260 Ofc Vst, Est Level IV 13:29:16 CDT Lorene Meryl Paulson S Durbin, DO, FACP CPT-63324 Ofc Vst, Est Level V 13:50:55 [employer] Lorene Meryl Paulson S Durbin, DO, FACP CPT-68425 Ofc Vst, Est Level IV 11:10:14 [employer] Lorene Meryl Paulson S Durbin, DO, FACP CPT-54762 Ofc Vst, Est Level III 15:28:22 CDT Lorene Meryl Paulson S Durbin, DO, FACP CPT-34661 Ofc Vst, New Level IV 14:17:27 CDT Lorene Meryl Paulson S Ramakrishna, DO, FACP CPT-07518 Ofc Vst, New Level II 14:17:27 CDT Lorenedada Sorensen Durbin, DO, FACP CPT-40091 Ofc Vst, Est Level IV 10:59:16 CDT Lorene Meryl Sorensen Durbin, DO, FACP CPT-55935 Ofc Vst, Est Level II 16:12:29 CDT Lroene Meryl Sorensen Durbin, DO, FACP CPT-50891 Ofc Vst, Est Level IV 10:53:48 CDT Lorene Meryl Sorensen Ramakrishna, DO, FACP CPT-07270 Office Consult, Level III 11:11:19 [employer] Lorene Sorensen Ramakrishna, DO, FACP CPT-86964 Ofc Vst, Est Level IV 11:12:23 CDT Lorenedada Sorensen Ramakrishna, DO, FACP CPT-91079 Ofc Vst, Est Level IV 11:46:11 CDT Lorenedada Sorensen Ramakrishna, DO, FACP CPT-84012 Ofc Vst, Est Level IV 15:36:14 CDT Lorene Meryl Sorensen Durbin, DO, FACP CPT-42205 Ofc Vst, Est Level IV 11:36:09 [employer] Lorene Sorensen Ramakrishna, DO, FACP CPT-33681 Ofc Vst, Est Level IV 16:28:10 CDT Lorene Meryl Sorensen Durbin, DO, FACP CPT-39400 Ofc Vst, Est Level IV 15:52:30 CDT Lorene Meryl Sorensen Durbin, DO, FACP CPT-26424 Ofc Vst, Est Level III 11:48:57 CDT Lorene Meryl Sorensen Durbin, DO, FACP CPT-19495 Ofc Vst, Est Level IV 09:15:20 [employer] Lorene Meryl Sorensen Ramakrishna, DO, FACP CPT-50518 Ofc Vst, Est Level IV 16:43:12 [employer] SAL[employer]ATE Lorenedada Sheth Ramakrishna Lorene Edu Ramakrishna, DO, FACP CPT-08424 Ofc Vst, Est Level III 14:52:39 CDT Lorene Sheth Durbin Lorene Eud Ramakrishna, DO, FACP CPT-80963 Ofc Vst, Est Level IV 11:27:37 CDT Lorene Meryl Levinener Lorene Sorensen Ramakrishna, DO, FACP CPT-26381 Ofc Vst, Est Level III 09:53:01 [employer] SAL[employer]ATE Lorenedada Sheth Ramakrishna Durbin, DO, FACP CPT-38857 Ofc Vst, Est Level IV 09:49:25 CDT Lorenedada Sheth Ramakrishna Paulson Edu Ramakrishna, DO, FACP CPT-88202 Ofc Vst, Est Level IV 11:33:29 CDT Lorene Meryl Durbin Lorene Sorensen Ramakrishna, DO, FACP CPT-58050 Ofc Vst, Est Level IV 14:11:50 [employer] SAL[employer]ATE Lorene Durbin [facility] CPT-75821 Ofc Vst, Est Level IV 17:26:08 [employer]ATE Lorene Durbin [facility] CPT-34228 Ofc Vst, Est Level IV 10:40:42 [employer]ATE Lorene Durbin [facility] CPT-10491 Ofc Vst, Est Level IV 15:05:22 CDT Lorene Meryl Durbin [facility] CPT-10736 Ofc Vst, Est Level IV 14:42:32 CDT Lorenedada Durbin [facility] CPT-08850 Ofc Vst, Est Level III 16:05:07 CDT Lorene Durbin [facility] CPT-78390 Ofc Vst, Est Level V 17:24:06 CDT Lorene Meryl Durbin [facility] CPT-01662 Ofc Vst, Est Level IV 16:02:46 CDT Lorene Meryl Ramakrishna [facility] CPT-94350 Ofc Vst, Est Level III 12:50:41 [employer] Lorene Meryl Ramakrishna [facility] CPT-64316 Ofc Vst, Est Level II 12:09:58 [employer] SAL[employer]IATE Lorene Merylgladys Durbin [facility] CPT-21364 Ofc Vst, Est Level IV 09:31:48 EN[employer] SALES [employer]IATE Lorenedada Durbin [facility] CPT-72039 Ofc Vst, Est Level III 10:36:21 EN[employer] SALES [employer]OCIATE Lorene Merylgladys Durbin [facility] CPT-55856 Ofc Vst, Est Level IV 15:48:05 CDT Lorene Meryl Durbin [facility] CPT-39236 Ofc Vst, Est Level III 11:58:31 CDT Lorene Merylgladys Durbin [facility] CPT-72975 Ofc Vst, Est Level IV 18:14:00 CDT Lorene Meryl Ramakrishna [facility] CPT-64116 Ofc Vst, New Level III 19:15:23 [employer] Lorenedada Durbin [facility] Procedures Code Procedure Name Date Entry Date Standard Description CPT-G0439 Medicare Annual Wellness Visit 14:14:39 CDT CPT-G8445 E-Prescribing Not sent due to no medication given 21:20: 47 CDT CPT-G8445 E-Prescribing Not sent due to no medication given 20:32: 44 [employer] CPT-G8445 E-Prescribing Not sent due to no medication given 14:43: 31 [employer] SAL[employer]ATE CPT-G8445 E-Prescribing Not sent due to no medication given 20:01: 57 [employer]ATE CPT-G8445 E-Prescribing Not sent due to no medication given 16:57: 33 CDT CPT-G8445 E-Prescribing Not sent due to no medication given 14:43: 50 CDT CPT-G8445 E-Prescribing Not sent due to no medication given 15:02: 07 CDT CPT-G8443 E-Prescribing Medication Sent 14:44:46 CDT CPT-G8443 E-Prescribing Medication Sent 16:13:39 CDT CPT-77211 Biopsy, skin/subcut/mucous membrane; sngl lsn 15:46:15 CDT CPT-G8445 E-Prescribing Not sent due to no medication given 14:23: 32 CDT CPT-G0438 Medicare Annual Wellness Visit Initial 14:23:32 CDT CPT-G8445 E-Prescribing Not sent due to no medication given 15:57: 50 CDT CPT-G8443 E-Prescribing Medication Sent 15:52:15 [employer] SAL[employer]IATE CPT-G8443 E-Prescribing Medication Sent 15:08:06 CDT CPT-34438 Injection, Pneumovax 16:28:10 CDT CPT-G8443 E-Prescribing Medication Sent 15:52:30 CDT CPT-17236 EKG w/ Interpretation 17:24:06 CDT CPT-20741 EKG w/ Interpretation 11:58:31 CDT
--- OUTSIDE RECORDS SUMMARY | 2017-12-16 05:30 | XMS REPORT | Clinical Summary ---
Author Author User, [employer] Lorene Durbin DO, FACP Address Unknown [...] MG TABS 1 PO QD FOLIC ACID 87605069813 No Longer Active Lorene Durbin TRAZODONE HCL 100 MG TABS 1 PO AT HS TRAZODONE HCL 08880052843 Active Lorenedada Durbin PULMICORT 0.5 MG/2ML SUSP I VIAL-INHALE ORALLY DAILY BUDESONIDE 43091555660 Active Lorenedada Durbin PREDNISONE 5 MG TABS 1 PO DAILY PREDNISONE 66913690156 Active Lorenedada Durbin NOVOLOG FLEXPEN 100 UNIT/ML SOPN INJECT 3 SQ BEFORE MEALS INSULIN ASPART 58401018756 Active Lorenedada Durbin IPRATROPIUM-ALBUTEROL 0.5-2.5 (3) MG/3ML SOLN 1 VIAL INHALE ORALLY TID 09/17 IPRATROPIUM-ALBUTEROL 31525069782 Active Lorenedada Durbin DEPAKOTE SPRINKLES 125 MG CPSP 1 TIME DAILY DIVALPROEX SODIUM 11994155146 Active Lorenedada Durbin EXELON 4.6 MG/24HR PT24 APPLY PATCH DAILY RIVASTIGMINE 02390773645 Active Lorenedada Durbin FOLIC ACID 1 MG TABS 1 PO DAILY FOLIC ACID 35290525508 Active Lorenedada Durbin MELATONIN 3 MG TABS 1 PO AT HS FOR INSOMNIA MELATONIN 35670553960 Active Lorenedada Durbin MIRALAX POWD 17 GRAMS PO BID POLYETHYLENE GLYCOL 3350 55392154834 Active Lorenedada Durbin NORVASC 10 MG TABS 1 PO DAILY AMLODIPINE BESYLATE 09768898318 Active Lorene Meryl Durbin CELEXA 20 MG TABS 1 PO DAILY CITALOPRAM HYDROBROMIDE 71907065437 Active Lorene Meryl Durbin PAXIL 20 MG TAB 1 PO DAILY PAROXETINE HCL 01713998863 No Longer Active Lorene Meryl Durbin BISACODYL LAXATIVE 10 MG SUPP 1 SD QD PRN constipation BISACODYL 42420553832 No Longer Active Lorene Meryl Durbin COREG 6.25 MG TABS 1 PO BID CARVEDILOL 21848649609 Active Lorene Meryl Durbin BENADRYL 25 MG CAP 1 PO TID prn DIPHENHYDRAMINE HCL 71594909010 No Longer Active Lorene Meryl Durbin LACTULOSE SOLN 30 ML PO BID PRN Constipation LACTULOSE SOLN 34753712110 No Longer Active Lorene Meryl Durbin LASIX 40 MG TAB 1 PO MWF FUROSEMIDE 05241054601 No Longer Active Lorene Meryl Durbin VITAMIN D 1000 UNIT TABS 1 PO Daily CHOLECALCIFEROL 15468737717 Active Lorene Meryl Durbin ZOCOR 20 MG TABS 1 PO DAILY SIMVASTATIN 41990095978 Active Elizabeth Dixon FINASTERIDE 5 MG TABS 1 PO DAILY FINASTERIDE 96369033620 Active Lorene Meryl Durbin NAMENDA 10 MG TABS 1 PO BID MEMANTINE HCL 99872693434 Active Elizabeth Dixon KENALOG 0.1 % CREA apply to affected areas BID TRIAMCINOLONE ACETONIDE No Longer Active Lorene Meryl Durbin DILANTIN 100 MG CAP 1 PO at 7am and 2 pm and 2 PO at HS PHENYTOIN SODIUM EXTENDED 98083869909 No Longer Active Lorene Meryl Durbin PREDNISONE 20 MG TAB 1 PO daily for 7 days then resume 5mg dosing as previous PREDNISONE 66650140305 No Longer Active Lorene Meryl Durbin AUGMENTIN 500-125 MG TAB 1 PO BID AMOXICILLIN-POT CLAVULANATE 30855770967 No Longer Active Lorene Meryl Durbin OCUFLOX 0.3 % SOLN 2 drops in right ear TID for 7 days OFLOXACIN 90677288005 No Longer Active Lorene Meryl Durbin PREDNISONE 20 MG TAB 1 PO daily for 7 days PREDNISONE 30872464773 No Longer Active Lorene Meryl Durbin KENALOG 0.1 % CREA apply to affected areas BID TRIAMCINOLONE ACETONIDE No Longer Active Lorene Meryl Durbin ATARAX 25 MG TAB 1 PO Q6hrs prn itching HYDROXYZINE HCL No Longer Active Lorenedada Durbin DETROL LA 4 MG CP24 1 PO daily TOLTERODINE TARTRATE 69542807318 No Longer Active Lorene Meryl Durbin FINASTERIDE 5 MG TABS 1 PO BID FINASTERIDE 20748748253 No Longer Active Lorene Meryl Durbin BACTRIM DS 800-160 MG TAB 1 PO MWF TRIMETHOPRIM- SULFAMETHOXAZOLE 71590892691 No Longer Active Lorenedada Durbin NYSTATIN POWD Apply Topically to groin BID for gaulding NYSTATIN 29669779090 No Longer Active Lorene Meryl Durbin TERBINAFINE HCL 1 % CREA Apply to affected area BID TERBINAFINE HCL 47525824495 No Longer Active Lorene Meryl Durbin CALTRATE 600 PLUS-VIT D 600-200 MG-IU TABS 1 PO BID CALCIUM-VITAMIN D Active Elizabeth Dixon VALTREX 1 GM TAB 1 PO BID VALACYCLOVIR HCL 75909036749 No Longer Active Lorenedada Durbin TESSALON 200 MG CAPS 1 PO TID prn cough BENZONATATE 69447624528 No Longer Active Elizabeth Dixon PREDNISONE 10 MG TABS 1 PO QD PREDNISONE 88196834386 No Longer Active Lorene Meryl Durbin TESSALON 200 MG CAPS 1 PO TID prn cough BENZONATATE 85384622746 No Longer Active Lorene Meryl Durbin FLOMAX 0.4 MG CAPS 1 PO QD for urinary retention TAMSULOSIN HCL 32483315157 Active Elizabeth Dixon OMEPRAZOLE 40 MG CPDR 1 PO QD OMEPRAZOLE 21898505170 Active Elizabeth Dixon FERROUS SULFATE 325 (65 FE) MG TABS 1 PO BID FERROUS SULFATE 64313463573 Active Elizabeth Dixon COLACE 100 MG CAPS 1 PO BID prevent constipation DOCUSATE SODIUM 37058581491 Active Elizabeth Dixon ACETAMINOPHEN 325 MG TABS 2 PO Q 4hrs PRN pain or fever ACETAMINOPHEN 74956865036 Active Lorene Meryl Durbin IMURAN 50 MG TABS 3 po daily AZATHIOPRINE 61213879130 No Longer Active Lorene Meryl Durbin TOVIAZ 4 MG [id number] 1 po daily FESOTERODINE FUMARATE 94799844215 No Longer Active Lorene Meryl Durbin COREG 12.5 MG TABS 1 po bid CARVEDILOL 21831199868 No Longer Active Lorene Meryl Durbin WAVESENSE PRESTO TEST STRP Check BS Daily DX: DIABETES GLUCOSE BLOOD 77848117005 No Longer Active Lorene Meryl Durbin OMEPRAZOLE 40 MG CPDR 1 PO Daily OMEPRAZOLE 67782107526 No Longer Active Lorene Meryl Durbin FLOMAX 0.4 MG CAPS 1 PO Daily TAMSULOSIN HCL 96278281368 No Longer Active Lorene Meryl Durbin MEPRON 750 MG/5ML SUSP 5 ml PO BID ATOVAQUONE 50357342324 No Longer Active Lorene Meryl Durbin PREDNISONE 5 MG TABS 2 po daily PREDNISONE 64201577772 No Longer Active Lorene Meryl Durbin TERAZOSIN HCL 2 MG CAPS 1 PO qhs TERAZOSIN HCL 42522353092 No Longer Active Lorene Meryl Durbin VITAMIN D 1000 UNIT TABS 1 PO Daily CHOLECALCIFEROL 55505924541 No Longer Active Lorene Meryl Durbin PEPCID 20 MG TAB 1 PO daily FAMOTIDINE 34168095401 No Longer Active Lorene Meryl Durbin VITAMIN B-12 100 MCG TABS 1 po daily CYANOCOBALAMIN 12037737302 No Longer Active Lorene Meryl Durbin IRON 325 (65 FE) MG TABS 1 PO daily FERROUS SULFATE 02594001655 No Longer Active Lorene Meryl Durbin CALCIUM 600 1500 MG TABS 1 PO QAM and 2 PO QHS CALCIUM CARBONATE 28307865200 No Longer Active Lorene Meryl Durbin MULTIVITAMINS TABS 1 po daily MULTIPLE VITAMIN 12822161718 No Longer Active Loreen Meryl Durbin FISH OIL 1000 MG CAPS 1 po daily OMEGA-3 FATTY ACIDS 86444307745 No Longer Active Lorene Meryl Durbin ASPIRIN 81 MG TAB 1 PO QD ASPIRIN 25074886546 No Longer Active Lorene Meryl Durbin NORVASC 5 MG TAB 1 PO Daily AMLODIPINE BESYLATE 84719368692 No Longer Active Lorene Meryl Durbin CLOBETASOL PROPIONATE 0.05 % CREA Apply small amount to affected areas on arms BID CLOBETASOL PROPIONATE 88314913433 No Longer Active Lorene Meryl Durbin LOTRISONE 0.05-1 % CREAM Apply a small amount to affected area on back BID CLOTRIMAZOLE-BETAMETHASONE 17730639208 No Longer Active Lorene Meryl Durbin CYCLOPHOSPHAMIDE 25 MG TABS take 5 tablets once daily CYCLOPHOSPHAMIDE 78073948796 No Longer Active Lorene Meryl Durbin PERCOCET 5-325 MG TAB 1 PO Q 6 hours OXYCODONE- ACETAMINOPHEN 01437680735 No Longer Active Lorene Meryl Durbin VALTREX 1 GM TAB 1 PO BID VALACYCLOVIR HCL 71020646642 No Longer Active Lorene Meryl Durbin ACCUPRIL 10 MG TABS 1 po daily QUINAPRIL HCL 13490959577 No Longer Active Lorene Meryl Durbin COZAAR 25 MG TAB 1 PO daily LOSARTAN POTASSIUM 25019623493 No Longer Active Elizabeth Dixon MAGNESIUM OXIDE 400 MG CAPS 1 PO daily MAGNESIUM OXIDE 09062051104 No Longer Active Lorene Meryl Durbin LOTRISONE 0.05-1 % CREAM Apply to affected areas twice daily prn CLOTRIMAZOLE-BETAMETHASONE 86404679847 No Longer Active Lorene Meryl Durbin FERROUS SULFATE 100 MG 1 PO daily FERROUS SULFATE 100 MG No Longer Active Lorene Meryl Durbin QUALAQUIN 324 MG CAPS 1 PO QHS prn QUININE SULFATE 73841016097 No Longer Active Lorene Meryl Duribn ROBITUSSIN A-C 10-100 MG/5ML SYRUP 1 teaspoon PO Q 4-6 hr prn ROBITUSSIN A-C 10-100 MG/5ML SYRUP 02437710245 No Longer Active Lorene Meryl Durbin BIAXIN XL PAC 500 MG TB24 2 pills at same time daily for 7 days CLARITHROMYCIN 72290679204 No Longer Active Lorene Meryl Durbin TESSALON 200 MG CAPS 1 PO TID prn cough BENZONATATE 29126834803 No Longer Active Lorene Meryl Durbin ROBITUSSIN A-C 10-100 MG/5ML SYRUP 1 teaspoon PO Q 4-6 hr prn ROBITUSSIN A-C 10-100 MG/5ML SYRUP 35024481422 No Longer Active Lorene Meryl Durbin BIAXIN XL PAC 500 MG TB24 2 pills at same time daily for 7 days CLARITHROMYCIN 36889050106 No Longer Active Lorene Meryl Durbin KEFLEX 500 MG CAP 1 PO TID for 7 days CEPHALEXIN 77919521745 No Longer Active Lorene Meryl Durbin FERROUS SULFATE 325 (65 FE) MG TABS 1 PO daily FERROUS SULFATE 97333522383 No Longer Active Lorene Meryl Durbin CINNAMON 500 MG CAPS 1 po daily CINNAMON 84649858968 No Longer Active Lorene Meryl Durbin XANAX 0.25 MG TABS 1 po q 4-6 hrs prn ALPRAZOLAM 80666973687 No Longer Active Lorene Meryl Durbin TRIAMCINOLONE ACETONIDE 0.1 % OINT Apply as directed TRIAMCINOLONE ACETONIDE 30030801832 No Longer Active Lorene Meryl Durbin KERALAC 50 % GEL as needed UREA 97427865812 No Longer Active Lorene Meryl Durbin AMITRIPTYLINE HCL 25 MG TAB 1 PO daily at night prn AMITRIPTYLINE HCL 68201663367 No Longer Active Lorene Meryl Durbin ZOCOR 5 MG TABS 1 PO QOD (on hold) SIMVASTATIN 07329461875 No Longer Active Lorene Meryl Durbin VIAGRA 50 MG TABS prn SILDENAFIL CITRATE 08192900427 No Longer Active Lorene Meryl Durbin DARVOCET-N 100 100-650 MG TABS 1 po q 6 hrs. prn pain PROPOXYPHENE N-APAP 72783216327 No Longer Active Lorene Meryl Durbin CYCLOBENZAPRINE HCL 10 MG TABS 1 po q 12 hrs. prn CYCLOBENZAPRINE HCL 27742346379 No Longer Active Lorene Meryl Durbin LORTAB 5 5-500 MG TABS 1 as needed HYDROCODONE- ACETAMINOPHEN 54130588540 No Longer Active Lorenedada Durbin ALBUTEROL 90 MCG/ACT AERS 2 puffs Q4-6hrs prn ALBUTEROL 44407673411 No Longer Active Lorenedada Durbin ROBITUSSIN A-C 10-100 MG/5ML SYRUP 5cc PO Q 4-6 hr prn ROBITUSSIN A-C 10-100 MG/5ML SYRUP 27717459053 No Longer Active Lorenedada Durbin ADVAIR DISKUS 100-50 MCG/DOSE MISC 1 puff BID FLUTICASONE-SALMETEROL 80366888796 No Longer Active Lorenedada Durbin AUGMENTIN 500-125 MG TABS 1 PO BID AMOXICILLIN-POT CLAVULANATE 07170240298 No Longer Active Lorenedada Durbin PLAVIX 75 MG TABS 1 po daily CLOPIDOGREL BISULFATE 59868447177 No Longer Active Lorenedada Durbin AMOXIL 500 MG TABS 1 PO TID AMOXICILLIN 92674140659 No Longer Active Lorene Durbin Immunizations Vaccine [...] Unit Range Description Clinical Lists Update: [facility] - Chemistry Estimated Glomerular Filtration Rate (calc) 36 mL/min/1.73m2 glucose, plasma fasting 143 mg/dL anion gap, serum 12 sodium, serum 137 mmol/L urea nitrogen, blood 30 mg/dL creatinine, serum 2.0 mg/dL carbon dioxide, venous blood 27.0 mmol/L chloride, serum 103 mmol/L calcium, serum 9.2 mg/dL potassium, serum 5.0 mmol/L Clinical Lists Update: [facility] - Hematology erythrocyte (RBC) count 3.54 10*6/mm3 red blood cell distribution width 15.3 % hematocrit, blood 33.4 % mean corpuscular volume, RBC 94 fL platelet count 131 10*3/mm3 hemoglobin, blood 10.9 g/dL leukocyte count, blood 8.2 10*3/mm3 Clinical Lists Update: CBC,[facility] - Chemistry creatinine, serum 1.9 mg/dL potassium, serum 5.0 mmol/L sodium, serum 139 mmol/L anion gap, serum 10 glucose, plasma fasting 133 mg/dL Estimated Glomerular Filtration Rate (calc) 37 mL/min/1.73m2 urea nitrogen, blood 27 mg/dL calcium, serum 9.4 mg/dL chloride, serum 103 mmol/L carbon dioxide, venous blood 31.0 mmol/L Clinical Lists Update: CBC,BMP [facility] - Hematology leukocyte count, blood 8.6 10*3/mm3 hemoglobin, blood 13.2 g/dL mean corpuscular volume, RBC 100 fL platelet count 137 10*3/mm3 red blood cell distribution width 14.0 % hematocrit, blood 43 % erythrocyte (RBC) count 4.32 10*6/mm3 Clinical Lists Update: CBC,BMP,[facility] - Chemistry potassium, serum 5.0 mmol/L creatinine, serum 2.0 mg/dL carbon dioxide, venous blood 30.0 mmol/L urea nitrogen, blood 26 mg/dL chloride, serum 104 mmol/L calcium, serum 9.3 mg/dL Estimated Glomerular Filtration Rate (calc) 34 mL/min/1.73m2 glucose, plasma fasting 150 mg/dL anion gap, serum 10 sodium, serum 139 mmol/L Clinical Lists Update: CBC,BMP,[facility] - Hematology leukocyte count, blood 8.9 10*3/mm3 erythrocyte (RBC) count 4.31 10*6/mm3 mean corpuscular volume, RBC 101 fL hematocrit, blood 44 % platelet count 145 10*3/mm3 red blood cell distribution width 14.6 % hemoglobin, blood 13.4 g/dL Clinical Lists Update: CBC,BMP,[facility] - Urinalysis epithelial cells, urine none /[LPF] hyaline casts, urine none /[LPF] RBC urine by microscopy none WBC urine on microscopy none {Cells}/[HPF] appearance, urine Clear Yellow urobilinogen, urine, semiquantitative (dipstick) 0.2 pH, urine, semiquantitative 6.5 specific gravity, urine 1.020 mucus on urinalysis none blood in urine (hemoglobin) by dipstick trace ketones, urine, by test strip neg bilirubin, urine neg protein, urine, semiquantitative (dipstick) neg glucose, urine, semiquantitative neg nitrite, urine, semiquantitative neg bacteria, urine microscopy none Clinical Lists [...] g/dL Clinical Lists Update: CBC,CMP,FLP,TSH,HgA1c,Ferritin - Hematology erythrocyte (RBC) count 4.10 10*6/mm3 red blood cell distribution width 13.8 % hematocrit, blood 40 % mean corpuscular volume, RBC 97 fL hemoglobin, blood 12.6 g/dL leukocyte count, blood 7.5 10*3/mm3 platelet count 132 10*3/mm3 Clinical Lists Update: CBC,CMP,FLP.UA - Chemistry albumin, serum 3.7 g/dL cholesterol/HDL ratio, serum, percent 4.2 urea nitrogen, blood 27 mg/dL calcium, serum 9.3 mg/dL chloride, serum 106 mmol/L cholesterol, serum 167 mg/dL carbon dioxide, venous blood 31.0 mmol/L creatinine, serum 1.9 mg/dL Estimated Glomerular Filtration Rate (calc) 9.3 mL/min/1.73m2 glucose, plasma fasting 102 mg/dL alkaline phosphatase, serum 35 U/L anion gap, serum 8 sodium, serum 140 mmol/L triglyceride, serum, fasting 131 mg/dL bilirubin, serum, total 0.3 mg/dL alanine aminotransferase (SGPT), serum 19 U/L aspartate aminotransferase (SGOT), serum 19 U/L protein, total, serum 6.2 g/dL potassium, serum 4.7 mmol/L LDL cholesterol, serum 101 mg/dL HDL cholesterol, serum 40.0 mg/dL bilirubin, serum, direct 0.0 mg/dL Clinical Lists Update: CBC,CMP,FLP.UA - Hematology hematocrit, blood 41 % red blood cell distribution width 14.2 % hemoglobin, blood 12.9 g/dL mean corpuscular volume, RBC 99 fL platelet count 137 10*3/mm3 leukocyte count, blood 7.9 10*3/mm3 erythrocyte (RBC) count 4.10 10*6/mm3 Clinical Lists Update: CBC,CMP,FLP.UA - Urinalysis protein, urine, semiquantitative (dipstick) neg blood in [...] glucose, urine, semiquantitative neg Clinical Lists Update: CMP - Chemistry alkaline phosphatase, serum 23 U/L urea nitrogen, blood 21 mg/dL Estimated Glomerular Filtration Rate (calc) 44 mL/min/1.73m2 [...] serum 107 mmol/L calcium, serum 8.1 mg/dL albumin, serum 3.1 g/dL Clinical Lists Update: [facility] - Chemistry alkaline phosphatase, serum 24 U/L urea nitrogen, blood 52 mg/dL urea [...] 125 mg/dL glucose, plasma fasting 111 mg/dL Estimated Glomerular Filtration Rate (calc) 38 mL/min/1.73m2 Estimated Glomerular Filtration Rate (calc) 38 mL/min/1.73m2 albumin, serum 3.1 g/dL alkaline phosphatase, serum 30 U/L albumin, serum 3.5 g/dL Clinical Lists Update: [facility] - Hematology hemoglobin, blood 13.5 g/dL hematocrit, blood 38 % hematocrit, blood 40.6 % red blood cell distribution width 12.8 % red blood cell distribution width 12.9 % mean corpuscular volume, RBC 94 fL hemoglobin, blood 12.6 g/dL leukocyte count, blood 6.5 10*3/mm3 leukocyte count, blood 9.78 10*3/mm3 erythrocyte (RBC) count 4.00 10*6/mm3 erythrocyte (RBC) count 4.28 10*6/mm3 platelet count 125 10*3/mm3 platelet count 93 10*3/mm3 mean corpuscular volume, RBC 94.9 fL Clinical Lists Update: [facility] - Urinalysis ketones, urine, by test strip neg bilirubin, urine neg glucose, urine, semiquantitative neg blood in urine (hemoglobin) by dipstick neg mucus on urinalysis neg epithelial cells, urine 0-2 /[LPF] hyaline casts, urine present /[LPF] bacteria, urine microscopy few RBC urine by microscopy rare WBC urine on microscopy rare {Cells}/[HPF] appearance, urine Clear Yellow urobilinogen, urine, semiquantitative (dipstick) normal specific gravity, urine 1.015 protein, urine, semiquantitative (dipstick) neg nitrite, urine, semiquantitative neg pH, urine, semiquantitative 6 Office Visit: Dr Durbin's Check Up: Established [...] 10*6/mm3 Encounters Code Encounter Date Provider Facility CPT-01629 Ofc Vst, Est Level III 16:47:49 CDT Lorene Durbin DO, FACP CPT-81558 Ofc Vst, Est Level III 16:04:23 CDT Lorene Durbin DO, FACP CPT-67643 Ofc Vst, Est Level III 19:00:13 DIRECTOR [employer]LECTR[employer] ENGINEERING Lorene Durbin DO, FACP CPT-40286 Ofc Vst, Est Level III 21:20:47 CDT Lorene Durbin DO, FACP CPT-78227 Ofc Vst, Est Level III 20:32:44 DIRECTOR [employer]LECT[employer]ING Lorene Durbin DO, FACP CPT-36849 Ofc Vst, Est Level III 14:43:31 DIRECTOR [employer]LECT[employer] ENGINEERING Lorene Meryl Durbin Lorene S Durbin, DO, FACP CPT-95893 Ofc Vst, Est Level III 20:01:57 DIRECTOR [employer]LECT[employer] ENGINEERING Lorene Sorensen Ramakrishna, DO, FACP CPT-22140 Ofc Vst, Est Level III 16:57:33 CDT Lorene Meryl Sorensen Ramakrishna, DO, FACP CPT-37096 Ofc Vst, Est Level III 14:43:50 CDT Lorene Meryl Sorensen Ramakrishna, DO, FACP CPT-01274 Ofc Vst, Est Level III 15:02:07 CDT Lorene Meryl Sorensen Ramakrishna, DO, FACP CPT-62653 Ofc Vst, Est Level III 14:44:46 CDT Lorene Meryl Sorensen Ramakrishna, DO, FACP CPT-03525 Ofc Vst, Est Level IV 16:13:39 CDT Lorene Meryl Sorensen Ramakrishna, DO, FACP CPT-40890 Ofc Vst, Est Level III 11:48:41 CDT Lorene Meryl Sorensen Ramakrishna, DO, FACP CPT-68978 Ofc Vst, Est Level III 15:46:15 CDT Lorene Sorensen Ramakrishna, DO, FACP CPT-70629 Ofc Vst, Est Level IV 15:57:50 CDT Lorene Meryl Sorensen Ramakrishna, DO, FACP CPT-98950 Ofc Vst, Est Level III 16:05:36 DIRECTOR [employer]LECT[employer] ENGINEERING Lorene Sorensen Ramakrishna, DO, FACP CPT-68887 Ofc Vst, Est Level IV 15:52:15 DIRECTOR [employer]LECTRICAL ENGINEERING Lorene Sorensen Ramakrishna, DO, FACP CPT-33215 Ofc Vst, Est Level III 15:08:06 CDT Lorene Meryl Sorensen Ramakrishna, DO, FACP CPT-64687 Ofc Vst, Est Level IV 15:06:29 CDT Lorenedada Sorensen Durbin, DO, FACP CPT-08649 Ofc Vst, Est Level IV 13:29:16 CDT Lorenedada Sorensen Durbin, DO, FACP CPT-63569 Ofc Vst, Est Level V 13:50:55 DIRECTOR [employer]LECTR[employer] ENGINEERING Lorene Meryl Sorensen Durbin, DO, FACP CPT-95202 Ofc Vst, Est Level IV 11:10:14 DIRECTOR ELECTRICAL ENGINEERING Lorenedada Sorensen Ramakrishna, DO, FACP CPT-28595 Ofc Vst, Est Level III 15:28:22 CDT Lorenedada Sorensen Ramakrishna, DO, FACP CPT-31266 Ofc Vst, New Level IV 14:17:27 CDT Lorene Meryl Sorensen Ramakrishna, DO, FACP CPT-05545 Ofc Vst, New Level II 14:17:27 CDT Lorene Meryl Sorensen Ramakrishna, DO, FACP CPT-47691 Ofc Vst, Est Level IV 10:59:16 CDT Lorenedada Sorensen Ramakrishna, DO, FACP CPT-19134 Ofc Vst, Est Level II 16:12:29 CDT Lorneedada Sorensen Ramakrishna, DO, FACP CPT-38176 Ofc Vst, Est Level IV 10:53:48 CDT Lorenedada Sorensen Ramakrishna, DO, FACP CPT-27466 Office Consult, Level III 11:11:19 DIRECTOR ELECTRICAL ENGINEERING Lorene Sorensen Ramakrishna, DO, FACP CPT-56228 Ofc Vst, Est Level IV 11:12:23 CDT Lorenedada Sorensen Ramakrishna, DO, FACP CPT-89332 Ofc Vst, Est Level IV 11:46:11 CDT Lorene Meryl Sorensen Durbin, DO, FACP CPT-26459 Ofc Vst, Est Level IV 15:36:14 CDT Lorene Meryl Paulson S Durbin, DO, FACP CPT-76426 Ofc Vst, Est Level IV 11:36:09 DIRECTOR ELECTRICAL ENGINEERING Lorene Meryl Sorensen Durbin, DO, FACP CPT-92586 Ofc Vst, Est Level IV 16:28:10 CDT Lorene Meryl Sorensen Durbin, DO, FACP CPT-36926 Ofc Vst, Est Level IV 15:52:30 CDT Lorene Meryl Paulson S Durbin, DO, FACP CPT-01890 Ofc Vst, Est Level III 11:48:57 CDT Lorene Meryl Sorensen Durbin, DO, FACP CPT-06381 Ofc Vst, Est Level IV 09:15:20 DIRECTOR ELECTRICAL ENGINEERING Lorene Meryl Sorensen Durbin, DO, FACP CPT-89130 Ofc Vst, Est Level IV 16:43:12 DIRECTOR ELECTRICAL ENGINEERING Lorene Meryl Paulson S Durbin, DO, FACP CPT-86639 Ofc Vst, Est Level III 14:52:39 CDT Lorene Meryl Sorensen Durbin, DO, FACP CPT-18160 Ofc Vst, Est Level IV 11:27:37 CDT Lorene Meryl Sorensen Durbin, DO, FACP CPT-23244 Ofc Vst, Est Level III 09:53:01 DIRECTOR ELECTRICAL ENGINEERING Lorene Meryl Pedersoni S Durbin, DO, FACP CPT-03163 Ofc Vst, Est Level IV 09:49:25 CDT Lorene Meryl Pedersoni S Durbin, DO, FACP CPT-80213 Ofc Vst, Est Level IV 11:33:29 CDT Lorene Meryl Ramakrishna Durbin, DO, FACP CPT-24441 Ofc Vst, Est Level IV 14:11:50 DIRECTOR ELECTRICAL ENGINEERING Lorene Durbin [facility] [employer] [facility] [place] CPT-13947 Ofc Vst, Est Level IV 17:26:08 DIRECTOR ELECTRICAL ENGINEERING Lorene Durbin [facility] [place] CPT-12657 Ofc Vst, Est Level IV 10:40:42 DIRECTOR ELECTRICAL ENGINEERING Lorene Durbin [facility] [place] CPT-51905 Ofc Vst, Est Level IV 15:05:22 CDT Lorene Meryl Durbin [facility] [employer] [facility] [place] CPT-00756 Ofc Vst, Est Level IV 14:42:32 CDT Lorene Durbin [facility] [employer] [facility] [place] CPT-56472 Ofc Vst, Est Level III 16:05:07 CDT Lorene Durbin [employer] [facility] [place] CPT-83588 Ofc Vst, Est Level V 17:24:06 CDT Lorene Durbin [facility] [employer] [facility] [place] CPT-18539 Ofc Vst, Est Level IV 16:02:46 CDT Lorene Durbin [facility] [employer] [facility] [place] CPT-67998 Ofc Vst, Est Level III 12:50:41 DIRECTOR ELECTRICAL ENGINEERING Lorene Durbin [facility] [place] CPT-06798 Ofc Vst, Est Level II 12:09:58 DIRECTOR ELECTRICAL ENGINEERING Lorene Durbin [facility] [place] CPT-03402 Ofc Vst, Est Level IV 09:31:48 DIRECTOR ELECTRICAL ENGINEERING Lorene Durbin [facility] [place] CPT-60060 Ofc Vst, Est Level III 10:36:21 DIRECTOR ELECTRICAL ENGINEERING Lorene Durbin [facility] [place] CPT-50175 Ofc Vst, Est Level IV 15:48:05 CDT Lorene Durbin [facility] [place] CPT-10519 Ofc Vst, Est Level III 11:58:31 CDT Lorene Durbin [facility] [employer] [facility] [place] CPT-64070 Ofc Vst, Est Level IV 18:14:00 CDT Lorene Durbin [facility] [place] CPT-63449 Ofc Vst, New Level III 19:15:23 DIRECTOR ELECTRICAL ENGINEERING Lorene Durbin [facility] [place] Procedures Code Procedure Name Date Entry Date Standard Description CPT-G0439 Medicare Annual Wellness Visit 14:14:39 CDT CPT-G8445 E-Prescribing Not sent due to no medication given 21:20: 47 CDT CPT-G8445 E-Prescribing Not sent due to no medication given 20:32: 44 DIRECTOR ELECTRICAL ENGINEERING CPT-G8445 E-Prescribing Not sent due to no medication given 14:43: 31 DIRECTOR ELECTRICAL ENGINEERING CPT-G8445 E-Prescribing Not sent due to no medication given 20:01: 57 DIRECTOR ELECTRICAL ENGINEERING CPT-G8445 E-Prescribing Not sent due to no medication given 16:57: 33 CDT CPT-G8445 E-Prescribing Not sent due to no medication given 14:43: 50 CDT CPT-G8445 E-Prescribing Not sent due to no medication given 15:02: 07 CDT CPT-G8443 E-Prescribing Medication Sent 14:44:46 CDT CPT-G8443 E-Prescribing Medication Sent 16:13:39 CDT CPT-89092 Biopsy, skin/subcut/mucous membrane; sngl lsn 15:46:15 CDT CPT-G8445 E-Prescribing Not sent due to no medication given 14:23: 32 CDT CPT-G0438 Medicare Annual Wellness Visit Initial 14:23:32 CDT CPT-G8445 E-Prescribing Not sent due to no medication given 15:57: 50 CDT CPT-G8443 E-Prescribing 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
--- OUTSIDE RECORDS SUMMARY | 2017-12-16 05:32 | XMS REPORT | Clinical Summary ---
Author Author User, [employer] Lorene Durbin DO, FACP Address Unknown [...] organic origin MUSCLE CRAMPS 729.82 Resolved Lorene uDrbin Cramp of limb VASCULITIS 447.6 Resolved Lorene [...] Instruction BISACODYL LAXATIVE 10 MG SUPP 1 NC QD PRN constipation BISACODYL [id number] No Longer Active Lorene Durbin PREDNISONE 2.5 MG TABS 1 PO DAILY PREDNISONE 25838922045 Active Lorenedada Durbin COREG 6.25 MG TABS 1 PO BID CARVEDILOL 70163341503 Active Lorenedada Durbin BENADRYL 25 MG CAP 1 PO TID prn DIPHENHYDRAMINE HCL 94004530757 No Longer Active Lorenedada Durbin LACTULOSE SOLN 30 ML PO BID PRN Constipation LACTULOSE SOLN 63148199336 No Longer Active Lorene Durbin LASIX 40 MG TAB 1 PO MWF FUROSEMIDE 77942291018 No Longer Active Lorene Durbin VITAMIN D 1000 UNIT TABS 1 PO Daily CHOLECALCIFEROL 97753591024 Active Lorene Durbin ZOCOR 20 MG TABS 1 PO DAILY SIMVASTATIN 77085412106 Active Elizabeth Dixon FINASTERIDE 5 MG TABS 1 PO DAILY FINASTERIDE 49537307415 Active Lorene Durbin NAMENDA 10 MG TABS 1 PO BID MEMANTINE HCL 15374584299 Active Elizabeth Dixon KENALOG 0.1 % CREA apply to affected areas BID TRIAMCINOLONE ACETONIDE No Longer Active Lorene Durbin DILANTIN 100 MG CAP 1 PO at 7am and 2 pm and 2 PO at HS PHENYTOIN SODIUM EXTENDED 31418669844 No Longer Active Lorene Durbin PREDNISONE 20 MG TAB 1 PO daily for 7 days then resume 5mg dosing as previous PREDNISONE 83697673880 No Longer Active Lorene Meryl Durbin AUGMENTIN 500-125 MG TAB 1 PO BID AMOXICILLIN-POT CLAVULANATE 08761028603 No Longer Active Lorene Meryl Durbin OCUFLOX 0.3 % SOLN 2 drops in right ear TID for 7 days OFLOXACIN 29861460354 No Longer Active Lorene Meryl Durbin PREDNISONE 20 MG TAB 1 PO daily for 7 days PREDNISONE 83012793964 No Longer Active Lorene Meryl Durbin KENALOG 0.1 % CREA apply to affected areas BID TRIAMCINOLONE ACETONIDE No Longer Active Lorene Meryl Durbin ATARAX 25 MG TAB 1 PO Q6hrs prn itching HYDROXYZINE HCL No Longer Active Lorene Meryl Durbin DETROL LA 4 MG CP24 1 PO daily TOLTERODINE TARTRATE 39316889467 No Longer Active Lorene Meryl Durbin FINASTERIDE 5 MG TABS 1 PO BID FINASTERIDE 34703910972 No Longer Active Lorenedada Durbin BACTRIM DS 800-160 MG TAB 1 PO MWF TRIMETHOPRIM- SULFAMETHOXAZOLE 35840540816 No Longer Active Lorene Meryl Durbin NYSTATIN POWD Apply Topically to groin BID for gaulding NYSTATIN 92884891914 No Longer Active Lorene Meryl Durbin TERBINAFINE HCL 1 % CREA Apply to affected area BID TERBINAFINE HCL 08201851274 No Longer Active Lorene Meryl Durbin CALTRATE 600 PLUS-VIT D 600-200 MG-IU TABS 1 PO BID CALCIUM-VITAMIN D Active Elizabeth Dixon VALTREX 1 GM TAB 1 PO BID VALACYCLOVIR HCL 74710733132 No Longer Active Lorene Meryl Durbin TESSALON 200 MG CAPS 1 PO TID prn cough BENZONATATE 26280576598 No Longer Active Elizabethjenn Dixon PREDNISONE 10 MG TABS 1 PO QD PREDNISONE 10298683298 No Longer Active Lorene Durbin PAXIL 20 MG TAB 1 PO DAILY PAROXETINE HCL 40401441117 Active Elizabeth Dixon TESSALON 200 MG CAPS 1 PO TID prn cough BENZONATATE 45600022150 No Longer Active Lorenedada Durbin FLOMAX 0.4 MG CAPS 1 PO QD for urinary retention TAMSULOSIN HCL 16716524456 Active Elizabeth Lizarragatis OMEPRAZOLE 40 MG CPDR 1 PO QD OMEPRAZOLE 25754305594 Active Elizabeth Lizarragatis FOLIC ACID 1 MG TABS 1 PO QD FOLIC ACID 04072180965 Active Elizabeth Dixon FERROUS SULFATE 325 (65 FE) MG TABS 1 PO BID FERROUS SULFATE 68954500186 Active Elizabeth Dixon COLACE 100 MG CAPS 1 PO BID prevent constipation DOCUSATE SODIUM 18804650536 Active Elizabeth Dixon ACETAMINOPHEN 325 MG TABS 2 PO Q 4hrs PRN pain or fever ACETAMINOPHEN 74314679790 Active Lorenedada Durbin IMURAN 50 MG TABS 3 po daily AZATHIOPRINE 78383622834 No Longer Active Lorenedada Durbin TOVIAZ 4 MG SB14O-NHH 1 po daily FESOTERODINE FUMARATE 36921141263 No Longer Active Lorenedada Durbin COREG 12.5 MG TABS 1 po bid CARVEDILOL 76049010855 No Longer Active Lorene Durbin WAVESENSE PRESTO TEST STRP Check BS Daily DX: DIABETES GLUCOSE BLOOD 25560327709 No Longer Active Lorene Durbin OMEPRAZOLE 40 MG CPDR 1 PO Daily OMEPRAZOLE 75000068268 No Longer Active Lorenedada Durbin FLOMAX 0.4 MG CAPS 1 PO Daily TAMSULOSIN HCL 74454510458 No Longer Active Lorene Meryl Durbin MEPRON 750 MG/5ML SUSP 5 ml PO BID ATOVAQUONE 45519490680 No Longer Active Lorene Meryl Durbin PREDNISONE 5 MG TABS 2 po daily PREDNISONE 75750499431 No Longer Active Lorene Meryl Durbin TERAZOSIN HCL 2 MG CAPS 1 PO qhs TERAZOSIN HCL 18617624758 No Longer Active Lorene Meryl Durbin VITAMIN D 1000 UNIT TABS 1 PO Daily CHOLECALCIFEROL 38612564926 No Longer Active Lorene Meryl Durbin PEPCID 20 MG TAB 1 PO daily FAMOTIDINE 15917150830 No Longer Active Lorene Meryl Durbin VITAMIN B-12 100 MCG TABS 1 po daily CYANOCOBALAMIN 48514596199 No Longer Active Lorene Meryl Durbin IRON 325 (65 FE) MG TABS 1 PO daily FERROUS SULFATE 48913617974 No Longer Active Lorene Meryl Durbin CALCIUM 600 1500 MG TABS 1 PO QAM and 2 PO QHS CALCIUM CARBONATE 21140825089 No Longer Active Lorene Meryl Durbin MULTIVITAMINS TABS 1 po daily MULTIPLE VITAMIN 32202599705 No Longer Active Lorene Meryl Durbin FISH OIL 1000 MG CAPS 1 po daily OMEGA-3 FATTY ACIDS 71439660796 No Longer Active Lorene Meryl Durbin ASPIRIN 81 MG TAB 1 PO QD ASPIRIN 61785494084 No Longer Active Lorene Meryl Durbin NORVASC 5 MG TAB 1 PO Daily AMLODIPINE BESYLATE 08049474177 No Longer Active Lorene Meryl Durbin CLOBETASOL PROPIONATE 0.05 % CREA Apply small amount to affected areas on arms BID CLOBETASOL PROPIONATE 45555809259 No Longer Active Lorene Meryl Durbin LOTRISONE 0.05-1 % CREAM Apply a small amount to affected area on back BID CLOTRIMAZOLE-BETAMETHASONE 71330187941 No Longer Active Lorene Meryl Durbin CYCLOPHOSPHAMIDE 25 MG TABS take 5 tablets once daily CYCLOPHOSPHAMIDE 15130633469 No Longer Active Lorene Meryl Durbin PERCOCET 5-325 MG TAB 1 PO Q 6 hours OXYCODONE- ACETAMINOPHEN 15208529880 No Longer Active Lorene Meryl Durbin VALTREX 1 GM TAB 1 PO BID VALACYCLOVIR HCL 94427178737 No Longer Active Lorene Meryl Durbin ACCUPRIL 10 MG TABS 1 po daily QUINAPRIL HCL 22746715325 No Longer Active Lorene Meryl Durbin COZAAR 25 MG TAB 1 PO daily LOSARTAN POTASSIUM 68627724335 No Longer Active Elizabeth Dixon MAGNESIUM OXIDE 400 MG CAPS 1 PO daily MAGNESIUM OXIDE 66353661757 No Longer Active Lorene Meryl Durbin LOTRISONE 0.05-1 % CREAM Apply to affected areas twice daily prn CLOTRIMAZOLE-BETAMETHASONE 67859095230 No Longer Active Lorenedada Durbin FERROUS SULFATE 100 MG 1 PO daily FERROUS SULFATE 100 MG No Longer Active Lorene Meryl Durbin QUALAQUIN 324 MG CAPS 1 PO QHS prn QUININE SULFATE 90459934570 No Longer Active Lorene Meryl Durbin ROBITUSSIN A-C 10-100 MG/5ML SYRUP 1 teaspoon PO Q 4-6 hr prn ROBITUSSIN A-C 10-100 MG/5ML SYRUP 04288911908 No Longer Active Lorene Meryl Durbin BIAXIN XL PAC 500 MG TB24 2 pills at same time daily for 7 days CLARITHROMYCIN 25445881382 No Longer Active Lorene Meryl Durbin TESSALON 200 MG CAPS 1 PO TID prn cough BENZONATATE 58493030208 No Longer Active Lorene Meryl Durbin ROBITUSSIN A-C 10-100 MG/5ML SYRUP 1 teaspoon PO Q 4-6 hr prn ROBITUSSIN A-C 10-100 MG/5ML SYRUP 75481331009 No Longer Active Lorene Meryl Durbin BIAXIN XL PAC 500 MG TB24 2 pills at same time daily for 7 days CLARITHROMYCIN 28456205367 No Longer Active Lorene Meryl Durbin KEFLEX 500 MG CAP 1 PO TID for 7 days CEPHALEXIN 99517279938 No Longer Active Lorene Meryl Durbin FERROUS SULFATE 325 (65 FE) MG TABS 1 PO daily FERROUS SULFATE 96563282661 No Longer Active Lorene Meryl Durbin CINNAMON 500 MG CAPS 1 po daily CINNAMON 21688779997 No Longer Active Lorene Meryl Durbin XANAX 0.25 MG TABS 1 po q 4-6 hrs prn ALPRAZOLAM 41237266494 No Longer Active Lorene Meryl Durbin TRIAMCINOLONE ACETONIDE 0.1 % OINT Apply as directed TRIAMCINOLONE ACETONIDE 73012190964 No Longer Active Lorene Meryl Durbin KERALAC 50 % GEL as needed UREA 90182101464 No Longer Active Lorene Meryl Durbin AMITRIPTYLINE HCL 25 MG TAB 1 PO daily at night prn AMITRIPTYLINE HCL 62363493773 No Longer Active Lorene Meryl Durbin ZOCOR 5 MG TABS 1 PO QOD (on hold) SIMVASTATIN 00899083056 No Longer Active Lorene Meryl Durbin VIAGRA 50 MG TABS prn SILDENAFIL CITRATE 21073874079 No Longer Active Lorene Meryl Durbin DARVOCET-N 100 100-650 MG TABS 1 po q 6 hrs. prn pain PROPOXYPHENE N-APAP 33857126211 No Longer Active Lorenedada Durbin CYCLOBENZAPRINE HCL 10 MG TABS 1 po q 12 hrs. prn CYCLOBENZAPRINE HCL 49006030347 No Longer Active Lorene Meryl Durbin LORTAB 5 5-500 MG TABS 1 as needed HYDROCODONE- ACETAMINOPHEN 90882119492 No Longer Active Lorene Meryl Durbin ALBUTEROL 90 MCG/ACT AERS 2 puffs Q4-6hrs prn ALBUTEROL 04579338594 No Longer Active Lorene Meryl Durbin ROBITUSSIN A-C 10-100 MG/5ML SYRUP 5cc PO Q 4-6 hr prn ROBITUSSIN A-C 10-100 MG/5ML SYRUP 03542875041 No Longer Active Lorenedada Durbin ADVAIR DISKUS 100-50 MCG/DOSE MISC 1 puff BID FLUTICASONE-SALMETEROL 54391116891 No Longer Active Lorene Meryl Durbin AUGMENTIN 500-125 MG TABS 1 PO BID AMOXICILLIN-POT CLAVULANATE 72247137994 No Longer Active Lorene Meryl Durbin PLAVIX 75 MG TABS 1 po daily CLOPIDOGREL BISULFATE 42960016270 No Longer Active Lorene Meryl Durbin AMOXIL 500 MG TABS 1 PO TID AMOXICILLIN 54162084015 No Longer Active Lorenedada Durbin Immunizations Vaccine [...] 10*6/mm3 Encounters Code Encounter Date Provider Facility CPT-25883 Ofc Vst, Est Level III 16:04:23 CDT Lorene MerylJamison Levinener, DO, FACP CPT-91249 Ofc Vst, Est Level III 19:00:13 [employer] Lorenedada Durbin, DO, FACP CPT-77251 Ofc Vst, Est Level III 21:20:47 CDT Lorene Meryl Durbin, DO, FACP CPT-98353 Ofc Vst, Est Level III 20:32:44 [employer] Lorene Durbin, DO, FACP CPT-55243 Ofc Vst, Est Level III 14:43:31 [employer] Lorene Durbin, DO, FACP CPT-41971 Ofc Vst, Est Level III 20:01:57 [employer] Lorene Durbin, DO, FACP CPT-16169 Ofc Vst, Est Level III 16:57:33 CDT Lorene Durbin, DO, FACP CPT-32677 Ofc Vst, Est Level III 14:43:50 CDT Lorenedada Durbin, DO, FACP CPT-49603 Ofc Vst, Est Level III 15:02:07 CDT Lorenedada Durbin, DO, FACP CPT-96076 Ofc Vst, Est Level III 14:44:46 CDT Lorene Durbin, DO, FACP CPT-90398 Ofc Vst, Est Level IV 16:13:39 CDT Lorenedada Durbin, DO, FACP CPT-46116 Ofc Vst, Est Level III 11:48:41 CDT Lorene Meryl Sorensen Durbin, DO, FACP CPT-14533 Ofc Vst, Est Level III 15:46:15 CDT Lorene Meryl Pedersoni S Durbin, DO, FACP CPT-81516 Ofc Vst, Est Level IV 15:57:50 CDT Lorene Meryl Paulson S Durbin, DO, FACP CPT-67484 Ofc Vst, Est Level III 16:05:36 [employer] Lorene Meryl Pedersoni S Durbin, DO, FACP CPT-96118 Ofc Vst, Est Level IV 15:52:15 [employer] Lorene Meryl Pedersoni S Durbin, DO, FACP CPT-49287 Ofc Vst, Est Level III 15:08:06 CDT Lorene Meryl Sorensen Durbin, DO, FACP CPT-14801 Ofc Vst, Est Level IV 15:06:29 CDT Lorene Meryl Pedersoni S Durbin, DO, FACP CPT-75518 Ofc Vst, Est Level IV 13:29:16 CDT Lorene Meryl Paulson S Durbin, DO, FACP CPT-82346 Ofc Vst, Est Level V 13:50:55 [employer] Lorene Meryl Paulson S Durbin, DO, FACP CPT-48114 Ofc Vst, Est Level IV 11:10:14 [employer] Lorene Meryl Paulson S Durbin, DO, FACP CPT-61639 Ofc Vst, Est Level III 15:28:22 CDT Lorene Meryl Paulson S Durbin, DO, FACP CPT-77312 Ofc Vst, New Level IV 14:17:27 CDT Lorene Meryl Paulson S Ramakrishna, DO, FACP CPT-63505 Ofc Vst, New Level II 14:17:27 CDT Lorenedada Sorensen Durbin, DO, FACP CPT-45394 Ofc Vst, Est Level IV 10:59:16 CDT Lorene Meryl Sorensen Durbin, DO, FACP CPT-69949 Ofc Vst, Est Level II 16:12:29 CDT Lorene Meryl Sorensen Durbin, DO, FACP CPT-82388 Ofc Vst, Est Level IV 10:53:48 CDT Lorene Meryl Sorensen Ramakrishna, DO, FACP CPT-19892 Office Consult, Level III 11:11:19 [employer] Lorene Sorensen Ramakrishna, DO, FACP CPT-78179 Ofc Vst, Est Level IV 11:12:23 CDT Lorenedada Sorensen Ramakrishna, DO, FACP CPT-73056 Ofc Vst, Est Level IV 11:46:11 CDT Lorenedada Sorensen Ramakrishna, DO, FACP CPT-69371 Ofc Vst, Est Level IV 15:36:14 CDT Lorene Meryl Sorensen Durbin, DO, FACP CPT-54988 Ofc Vst, Est Level IV 11:36:09 [employer] Lorene Sorensen Ramakrishna, DO, FACP CPT-36312 Ofc Vst, Est Level IV 16:28:10 CDT Lorene Meryl Sorensen Durbin, DO, FACP CPT-41639 Ofc Vst, Est Level IV 15:52:30 CDT Lorene Meryl Sorensen Durbin, DO, FACP CPT-09724 Ofc Vst, Est Level III 11:48:57 CDT Lorene Meryl Sorensen Durbin, DO, FACP CPT-39460 Ofc Vst, Est Level IV 09:15:20 [employer] Lorene Meryl Sorensen Ramakrishna, DO, FACP CPT-46067 Ofc Vst, Est Level IV 16:43:12 [employer] Lorenedada Sheth Ramakrishna Lorene Edu Ramakrishna, DO, FACP CPT-26470 Ofc Vst, Est Level III 14:52:39 CDT Lorene Sheth Durbin Lorene Edu Ramakrishna, DO, FACP CPT-88175 Ofc Vst, Est Level IV 11:27:37 CDT Lorene Meryl Levinener Lorene Sorensen Ramakrishna, DO, FACP CPT-64070 Ofc Vst, Est Level III 09:53:01 [employer] Lorenedada Sheth Ramakrishna Durbin, DO, FACP CPT-06051 Ofc Vst, Est Level IV 09:49:25 CDT Lorenedada Sheth Ramakrishna Paulson Edu Ramakrishna, DO, FACP CPT-38893 Ofc Vst, Est Level IV 11:33:29 CDT Lorene Meryl Durbin Lorene Sorensen Ramakrishna, DO, FACP CPT-24137 Ofc Vst, Est Level IV 14:11:50 [employer] Lorene Durbin [facility] CPT-23148 Ofc Vst, Est Level IV 17:26:08 [employer] Lorene Durbin [facility] CPT-65193 Ofc Vst, Est Level IV 10:40:42 [employer] Lorene Durbin [facility] CPT-01751 Ofc Vst, Est Level IV 15:05:22 CDT Lorene Meryl Durbin [facility] CPT-25965 Ofc Vst, Est Level IV 14:42:32 CDT Lorenedada Durbin [facility] CPT-47894 Ofc Vst, Est Level III 16:05:07 CDT Lorene Durbin [facility] CPT-40042 Ofc Vst, Est Level V 17:24:06 CDT Lorene Meryl Durbin [facility] CPT-49485 Ofc Vst, Est Level IV 16:02:46 CDT Lorene Meryl Ramakrishna [facility] CPT-92764 Ofc Vst, Est Level III 12:50:41 [employer] Lorene Meryl Ramakrishna [facility] CPT-19771 Ofc Vst, Est Level II 12:09:58 [employer] Lorene Merylgladys Durbin [facility] CPT-95687 Ofc Vst, Est Level IV 09:31:48 [employer] Lorenedada Durbin [facility] CPT-89619 Ofc Vst, Est Level III 10:36:21 [employer] Lorene Merylgladys Durbin [facility] CPT-13376 Ofc Vst, Est Level IV 15:48:05 CDT Lorene Meryl Durbin [facility] CPT-12979 Ofc Vst, Est Level III 11:58:31 CDT Lorene Merylgladys Durbin [facility] CPT-44764 Ofc Vst, Est Level IV 18:14:00 CDT Lorene Meryl Ramakrishna [facility] CPT-88170 Ofc Vst, New Level III 19:15:23 [employer] Lorenedada Dubrin [facility] Procedures Code Procedure Name Date Entry Date Standard Description CPT-G0439 Medicare Annual Wellness Visit 14:14:39 CDT CPT-G8445 E-Prescribing Not sent due to no medication given 21:20: 47 CDT CPT-G8445 E-Prescribing Not sent due to no medication given 20:32: 44 [employer] CPT-G8445 E-Prescribing Not sent due to no medication given 14:43: 31 [employer] CPT-G8445 E-Prescribing Not sent due to no medication given 20:01: 57 [employer] CPT-G8445 E-Prescribing Not sent due to no medication given 16:57: 33 CDT CPT-G8445 E-Prescribing Not sent due to no medication given 14:43: 50 CDT CPT-G8445 E-Prescribing Not sent due to no medication given 15:02: 07 CDT CPT-G8443 E-Prescribing Medication Sent 14:44:46 CDT CPT-G8443 E-Prescribing Medication Sent 16:13:39 CDT CPT-03463 Biopsy, skin/subcut/mucous membrane; sngl lsn 15:46:15 CDT CPT-G8445 E-Prescribing Not sent due to no medication given 14:23: 32 CDT CPT-G0438 Medicare Annual Wellness Visit Initial 14:23:32 CDT CPT-G8445 E-Prescribing Not sent due to no medication given 15:57: 50 CDT CPT-G8443 E-Prescribing Medication Sent 15:52:15 [employer] CPT-G8443 E-Prescribing Medication Sent 15:08:06 CDT CPT-52451 Injection, Pneumovax 16:28:10 CDT CPT-G8443 E-Prescribing Medication Sent 15:52:30 CDT CPT-00430 EKG w/ Interpretation 17:24:06 CDT CPT-20814 EKG w/ Interpretation 11:58:31 CDT
--- OUTSIDE RECORDS SUMMARY | 2017-12-16 05:36 | XMS REPORT | Clinical Summary ---
Author Author User, [employer] Organization Lorene Durbin DO, FACP Address Unknown [...] SUPP 1 FL QD PRN constipation BISACODYL [id number] No Longer Active Lorene Durbin PREDNISONE 2.5 MG TABS 1 PO DAILY PREDNISONE 18121878835 Active Lorenedada Durbin COREG 6.25 MG TABS 1 PO BID CARVEDILOL 09681104261 Active Lorenedada Durbin BENADRYL 25 MG CAP 1 PO TID prn DIPHENHYDRAMINE HCL 61728174710 No Longer Active Lorenedada Durbin LACTULOSE SOLN 30 ML PO BID PRN Constipation LACTULOSE SOLN 09925770894 No Longer Active Lorene Durbin LASIX 40 MG TAB 1 PO MWF FUROSEMIDE 54526845006 No Longer Active Lorene Durbin VITAMIN D 1000 UNIT TABS 1 PO Daily CHOLECALCIFEROL 10390123481 Active Lorene Durbin ZOCOR 20 MG TABS 1 PO DAILY SIMVASTATIN 74158536219 Active Elizabeth Dixon FINASTERIDE 5 MG TABS 1 PO DAILY FINASTERIDE 94763596850 Active Lorene Durbin NAMENDA 10 MG TABS 1 PO BID MEMANTINE HCL 57068100783 Active Elizabeth Dixon KENALOG 0.1 % CREA apply to affected areas BID TRIAMCINOLONE ACETONIDE No Longer Active Lorene Durbin DILANTIN 100 MG CAP 1 PO at 7am and 2 pm and 2 PO at HS PHENYTOIN SODIUM EXTENDED 48716137202 No Longer Active Lorene Durbin PREDNISONE 20 MG TAB 1 PO daily for 7 days then resume 5mg dosing as previous PREDNISONE 67215279026 No Longer Active Lorene Meryl Durbin AUGMENTIN 500-125 MG TAB 1 PO BID AMOXICILLIN-POT CLAVULANATE 70969721631 No Longer Active Lorene Meryl Durbin OCUFLOX 0.3 % SOLN 2 drops in right ear TID for 7 days OFLOXACIN 43428237202 No Longer Active Lorene Meryl Durbin PREDNISONE 20 MG TAB 1 PO daily for 7 days PREDNISONE 48959768310 No Longer Active Lorene Meryl Durbin KENALOG 0.1 % CREA apply to affected areas BID TRIAMCINOLONE ACETONIDE No Longer Active Lorene Meryl Duribn ATARAX 25 MG TAB 1 PO Q6hrs prn itching HYDROXYZINE HCL No Longer Active Lorene Meryl Durbin DETROL LA 4 MG CP24 1 PO daily TOLTERODINE TARTRATE 55083032478 No Longer Active Lorene Meryl Durbin FINASTERIDE 5 MG TABS 1 PO BID FINASTERIDE 85385957308 No Longer Active Lorenedada Durbin BACTRIM DS 800-160 MG TAB 1 PO MWF TRIMETHOPRIM- SULFAMETHOXAZOLE 82528927496 No Longer Active Lorene Meryl Durbin NYSTATIN POWD Apply Topically to groin BID for gaulding NYSTATIN 85008565527 No Longer Active Lorene Meryl Durbin TERBINAFINE HCL 1 % CREA Apply to affected area BID TERBINAFINE HCL 43756560219 No Longer Active Lorene Meryl Durbin CALTRATE 600 PLUS-VIT D 600-200 MG-IU TABS 1 PO BID CALCIUM-VITAMIN D Active Elizabeth Dixon VALTREX 1 GM TAB 1 PO BID VALACYCLOVIR HCL 66272612040 No Longer Active Lorene Meryl Durbin TESSALON 200 MG CAPS 1 PO TID prn cough BENZONATATE 37002729574 No Longer Active Elizabethjenn Dixon PREDNISONE 10 MG TABS 1 PO QD PREDNISONE 63590185433 No Longer Active Lorene Durbin PAXIL 20 MG TAB 1 PO DAILY PAROXETINE HCL 60896842236 Active Elizabeth Dixon TESSALON 200 MG CAPS 1 PO TID prn cough BENZONATATE 08733361892 No Longer Active Lorenedada Durbin FLOMAX 0.4 MG CAPS 1 PO QD for urinary retention TAMSULOSIN HCL 39603903117 Active Elizabeth Lizarragatis OMEPRAZOLE 40 MG CPDR 1 PO QD OMEPRAZOLE 47230975909 Active Elizabeth Lizarragatis FOLIC ACID 1 MG TABS 1 PO QD FOLIC ACID 73086713407 Active Elizabeth Dixon FERROUS SULFATE 325 (65 FE) MG TABS 1 PO BID FERROUS SULFATE 16576992860 Active Elizabeth Dixon COLACE 100 MG CAPS 1 PO BID prevent constipation DOCUSATE SODIUM 12803690365 Active Elizabeth Dixon ACETAMINOPHEN 325 MG TABS 2 PO Q 4hrs PRN pain or fever ACETAMINOPHEN 03128116410 Active Lorenedada Durbin IMURAN 50 MG TABS 3 po daily AZATHIOPRINE 69441848491 No Longer Active Lorenedada Durbin TOVIAZ 4 MG [id number] 1 po daily FESOTERODINE FUMARATE 75144911629 No Longer Active Lorenedada Durbin COREG 12.5 MG TABS 1 po bid CARVEDILOL 68499748400 No Longer Active Lorene Durbin WAVESENSE PRESTO TEST STRP Check BS Daily DX: DIABETES GLUCOSE BLOOD 60084389000 No Longer Active Lorene Durbin OMEPRAZOLE 40 MG CPDR 1 PO Daily OMEPRAZOLE 29381760833 No Longer Active Lorenedada Durbin FLOMAX 0.4 MG CAPS 1 PO Daily TAMSULOSIN HCL 72611748644 No Longer Active Lorene Meryl Durbin MEPRON 750 MG/5ML SUSP 5 ml PO BID ATOVAQUONE 03472098016 No Longer Active Lorene Meryl Durbin PREDNISONE 5 MG TABS 2 po daily PREDNISONE 21211860993 No Longer Active Lorene Meryl Durbin TERAZOSIN HCL 2 MG CAPS 1 PO qhs TERAZOSIN HCL 32391482022 No Longer Active Lorene Meryl Durbin VITAMIN D 1000 UNIT TABS 1 PO Daily CHOLECALCIFEROL 02476061973 No Longer Active Lorene Meryl Durbin PEPCID 20 MG TAB 1 PO daily FAMOTIDINE 55960461351 No Longer Active Lorene Meryl Durbin VITAMIN B-12 100 MCG TABS 1 po daily CYANOCOBALAMIN 94859526426 No Longer Active Lorene Meryl Durbin IRON 325 (65 FE) MG TABS 1 PO daily FERROUS SULFATE 71607018738 No Longer Active Lorene Meryl Durbin CALCIUM 600 1500 MG TABS 1 PO QAM and 2 PO QHS CALCIUM CARBONATE 24926772392 No Longer Active Lorene Meryl Durbin MULTIVITAMINS TABS 1 po daily MULTIPLE VITAMIN 60520080220 No Longer Active Lorene Meryl Durbin FISH OIL 1000 MG CAPS 1 po daily OMEGA-3 FATTY ACIDS 99042129159 No Longer Active Lorene Meryl Durbin ASPIRIN 81 MG TAB 1 PO QD ASPIRIN 33386874196 No Longer Active Lorene Meryl Durbin NORVASC 5 MG TAB 1 PO Daily AMLODIPINE BESYLATE 73460498134 No Longer Active Lorene Meryl Durbin CLOBETASOL PROPIONATE 0.05 % CREA Apply small amount to affected areas on arms BID CLOBETASOL PROPIONATE 20286013191 No Longer Active Lorene Meryl Durbin LOTRISONE 0.05-1 % CREAM Apply a small amount to affected area on back BID CLOTRIMAZOLE-BETAMETHASONE 19568053842 No Longer Active Lorene Meryl Durbni CYCLOPHOSPHAMIDE 25 MG TABS take 5 tablets once daily CYCLOPHOSPHAMIDE 39030289873 No Longer Active Lorene Meryl Durbin PERCOCET 5-325 MG TAB 1 PO Q 6 hours OXYCODONE- ACETAMINOPHEN 70695741080 No Longer Active Lorene Meryl Durbin VALTREX 1 GM TAB 1 PO BID VALACYCLOVIR HCL 08552521625 No Longer Active Lorene Meryl Durbin ACCUPRIL 10 MG TABS 1 po daily QUINAPRIL HCL 72359691526 No Longer Active Lorene Meryl Durbin COZAAR 25 MG TAB 1 PO daily LOSARTAN POTASSIUM 79474427540 No Longer Active Elizabeth Dixon MAGNESIUM OXIDE 400 MG CAPS 1 PO daily MAGNESIUM OXIDE 50128876195 No Longer Active Lorene Meryl Durbin LOTRISONE 0.05-1 % CREAM Apply to affected areas twice daily prn CLOTRIMAZOLE-BETAMETHASONE 60971754210 No Longer Active Lorenedada Durbin FERROUS SULFATE 100 MG 1 PO daily FERROUS SULFATE 100 MG No Longer Active Lorene Meryl Durbin QUALAQUIN 324 MG CAPS 1 PO QHS prn QUININE SULFATE 34037103988 No Longer Active Lorene Meryl Durbin ROBITUSSIN A-C 10-100 MG/5ML SYRUP 1 teaspoon PO Q 4-6 hr prn ROBITUSSIN A-C 10-100 MG/5ML SYRUP 36302913237 No Longer Active Lorene Meryl Durbin BIAXIN XL PAC 500 MG TB24 2 pills at same time daily for 7 days CLARITHROMYCIN 39493306999 No Longer Active Lorene Meryl Durbin TESSALON 200 MG CAPS 1 PO TID prn cough BENZONATATE 93214991086 No Longer Active Lorene Meryl Durbin ROBITUSSIN A-C 10-100 MG/5ML SYRUP 1 teaspoon PO Q 4-6 hr prn ROBITUSSIN A-C 10-100 MG/5ML SYRUP 74135601067 No Longer Active Lorene Meryl Durbin BIAXIN XL PAC 500 MG TB24 2 pills at same time daily for 7 days CLARITHROMYCIN 97020360316 No Longer Active Lorene Meryl Durbin KEFLEX 500 MG CAP 1 PO TID for 7 days CEPHALEXIN 18985283602 No Longer Active Lorene Meryl Durbin FERROUS SULFATE 325 (65 FE) MG TABS 1 PO daily FERROUS SULFATE 50752489663 No Longer Active Lorene Meryl Durbin CINNAMON 500 MG CAPS 1 po daily CINNAMON 52402565444 No Longer Active Lorene Meryl Durbin XANAX 0.25 MG TABS 1 po q 4-6 hrs prn ALPRAZOLAM 05587338287 No Longer Active Lorene Meryl Durbin TRIAMCINOLONE ACETONIDE 0.1 % OINT Apply as directed TRIAMCINOLONE ACETONIDE 23563833442 No Longer Active Lorene Meryl Durbin KERALAC 50 % GEL as needed UREA 06961789705 No Longer Active Lorene Meryl Durbin AMITRIPTYLINE HCL 25 MG TAB 1 PO daily at night prn AMITRIPTYLINE HCL 05533232882 No Longer Active Lorene Meryl Durbin ZOCOR 5 MG TABS 1 PO QOD (on hold) SIMVASTATIN 03504371442 No Longer Active Lorene Meryl Durbin VIAGRA 50 MG TABS prn SILDENAFIL CITRATE 13105843086 No Longer Active Lorene Meryl Durbin DARVOCET-N 100 100-650 MG TABS 1 po q 6 hrs. prn pain PROPOXYPHENE N-APAP 26404708100 No Longer Active Lorenedada Durbin CYCLOBENZAPRINE HCL 10 MG TABS 1 po q 12 hrs. prn CYCLOBENZAPRINE HCL 25748489910 No Longer Active Lorene Meryl Durbin LORTAB 5 5-500 MG TABS 1 as needed HYDROCODONE- ACETAMINOPHEN 11298678004 No Longer Active Lorene Meryl Durbin ALBUTEROL 90 MCG/ACT AERS 2 puffs Q4-6hrs prn ALBUTEROL 36908176653 No Longer Active Lorene Meryl Durbin ROBITUSSIN A-C 10-100 MG/5ML SYRUP 5cc PO Q 4-6 hr prn ROBITUSSIN A-C 10-100 MG/5ML SYRUP 59489802916 No Longer Active Lorenedada Durbin ADVAIR DISKUS 100-50 MCG/DOSE MISC 1 puff BID FLUTICASONE-SALMETEROL 52658687713 No Longer Active Lorene Meryl Durbin AUGMENTIN 500-125 MG TABS 1 PO BID AMOXICILLIN-POT CLAVULANATE 20514071509 No Longer Active Lorene Meryl Durbin PLAVIX 75 MG TABS 1 po daily CLOPIDOGREL BISULFATE 08868569232 No Longer Active Loreen Meryl Durbin AMOXIL 500 MG TABS 1 PO TID AMOXICILLIN 64786467849 No Longer Active Lorenedada Durbin Immunizations Vaccine [...] 10*6/mm3 Encounters Code Encounter Date Provider Facility CPT-24786 Ofc Vst, Est Level III 16:04:23 CDT Lorene MerylJamison Levinener, DO, FACP CPT-82522 Ofc Vst, Est Level III 19:00:13 NET APPLICATION ARCHITECT Lorenedada Durbin, DO, FACP CPT-07329 Ofc Vst, Est Level III 21:20:47 CDT Lorene Meryl Durbin, DO, FACP CPT-05792 Ofc Vst, Est Level III 20:32:44 NET APPLICATION ARCHITECT Lorene Durbin, DO, FACP CPT-13771 Ofc Vst, Est Level III 14:43:31 NET APPLICATION ARCHITECT Lorene Durbin, DO, FACP CPT-80627 Ofc Vst, Est Level III 20:01:57 NET APPLICATION ARCHITECT Lorene Durbin, DO, FACP CPT-85715 Ofc Vst, Est Level III 16:57:33 CDT Lorene Durbin, DO, FACP CPT-49916 Ofc Vst, Est Level III 14:43:50 CDT Lorenedada Durbin, DO, FACP CPT-86655 Ofc Vst, Est Level III 15:02:07 CDT Lorenedada Durbin, DO, FACP CPT-63178 Ofc Vst, Est Level III 14:44:46 CDT Lorene Durbin, DO, FACP CPT-65073 Ofc Vst, Est Level IV 16:13:39 CDT Lorenedada Durbin, DO, FACP CPT-04035 Ofc Vst, Est Level III 11:48:41 CDT Lorene Meryl Sorensen Durbin, DO, FACP CPT-17785 Ofc Vst, Est Level III 15:46:15 CDT Lorene Meryl Pedersoni S Durbin, DO, FACP CPT-06543 Ofc Vst, Est Level IV 15:57:50 CDT Lorene Meryl Paulson S Durbin, DO, FACP CPT-72955 Ofc Vst, Est Level III 16:05:36 NET APPLICATION ARCHITECT Lorene Meyrl Pedersoni S Durbin, DO, FACP CPT-19436 Ofc Vst, Est Level IV 15:52:15 NET APPLICATION ARCHITECT Lorene Meryl Pedersoni S Durbin, DO, FACP CPT-69912 Ofc Vst, Est Level III 15:08:06 CDT Lorene Meryl Sorensen Durbin, DO, FACP CPT-88410 Ofc Vst, Est Level IV 15:06:29 CDT Lorene Meryl Pedersoni S Durbin, DO, FACP CPT-44600 Ofc Vst, Est Level IV 13:29:16 CDT Lorene Meryl Paulson S Durbin, DO, FACP CPT-50041 Ofc Vst, Est Level V 13:50:55 NET APPLICATION ARCHITECT Lorene Meryl Paulosn S Durbin, DO, FACP CPT-36772 Ofc Vst, Est Level IV 11:10:14 NET APPLICATION ARCHITECT Lorene Meryl Paulson S Durbin, DO, FACP CPT-98197 Ofc Vst, Est Level III 15:28:22 CDT Lorene Meryl Paulson S Durbin, DO, FACP CPT-41917 Ofc Vst, New Level IV 14:17:27 CDT Lorene Meryl Paulson S Ramakrishna, DO, FACP CPT-29445 Ofc Vst, New Level II 14:17:27 CDT Lorenedada Sorensen Durbin, DO, FACP CPT-12316 Ofc Vst, Est Level IV 10:59:16 CDT Lorene Meryl Sorensen Durbin, DO, FACP CPT-64808 Ofc Vst, Est Level II 16:12:29 CDT Lorene Meryl Sorensen Durbin, DO, FACP CPT-05084 Ofc Vst, Est Level IV 10:53:48 CDT Lorene Meryl Sorensen Ramakrishna, DO, FACP CPT-17400 Office Consult, Level III 11:11:19 NET APPLICATION ARCHITECT Lorene Sorensen Ramakrishna, DO, FACP CPT-22521 Ofc Vst, Est Level IV 11:12:23 CDT Lorenedada Sorensen Ramakrishna, DO, FACP CPT-76036 Ofc Vst, Est Level IV 11:46:11 CDT Lorenedada Sorensen Ramakrishna, DO, FACP CPT-53678 Ofc Vst, Est Level IV 15:36:14 CDT Lorene Meryl Sorensen Durbin, DO, FACP CPT-65575 Ofc Vst, Est Level IV 11:36:09 NET APPLICATION ARCHITECT Lorene Sorensen Ramakrishna, DO, FACP CPT-08099 Ofc Vst, Est Level IV 16:28:10 CDT Lorene Meryl Sorensen Durbin, DO, FACP CPT-73258 Ofc Vst, Est Level IV 15:52:30 CDT Lorene Meryl Sorensen Durbin, DO, FACP CPT-14055 Ofc Vst, Est Level III 11:48:57 CDT Lorene Meryl Sorensen Durbin, DO, FACP CPT-02305 Ofc Vst, Est Level IV 09:15:20 NET APPLICATION ARCHITECT Lorene Meryl Sorensen Ramakrsihna, DO, FACP CPT-41238 Ofc Vst, Est Level IV 16:43:12 NET APPLICATION ARCHITECT Lorenedada Sheth Ramakrishna Lorene Edu Ramakrishna, DO, FACP CPT-20288 Ofc Vst, Est Level III 14:52:39 CDT Lorene Sheth Durbin Lorene Edu Ramakrishna, DO, FACP CPT-72240 Ofc Vst, Est Level IV 11:27:37 CDT Lorene Meryl Levinener Lorene Sorensen Ramakrishna, DO, FACP CPT-71515 Ofc Vst, Est Level III 09:53:01 NET APPLICATION ARCHITECT Lorenedada Sheth Ramakrishna Durbin, DO, FACP CPT-49853 Ofc Vst, Est Level IV 09:49:25 CDT Lorenedada Sheth Ramakrishna Paulson Edu Ramakrishna, DO, FACP CPT-74349 Ofc Vst, Est Level IV 11:33:29 CDT Lorene Meryl Durbin Lorene Sorensen Ramakrishna, DO, FACP CPT-10995 Ofc Vst, Est Level IV 14:11:50 NET APPLICATION ARCHITECT Lorene Durbin [facility] [place] CPT-46496 Ofc Vst, Est Level IV 17:26:08 NET APPLICATION ARCHITECT Lorene Durbin [facility] [place] CPT-82976 Ofc Vst, Est Level IV 10:40:42 NET APPLICATION ARCHITECT Lorene Durbin [facility] [place] CPT-50799 Ofc Vst, Est Level IV 15:05:22 CDT Lorene Meryl Durbin [facility] [place] CPT-23367 Ofc Vst, Est Level IV 14:42:32 CDT Lorenedada Durbin [facility] [place] CPT-15928 Ofc Vst, Est Level III 16:05:07 CDT Lorene Durbin [facility] [place] CPT-25545 Ofc Vst, Est Level V 17:24:06 CDT Lorene Meryl Durbin [facility] [place] CPT-31681 Ofc Vst, Est Level IV 16:02:46 CDT Lorene Meryl Ramakrishna [facility] [place] CPT-59458 Ofc Vst, Est Level III 12:50:41 NET APPLICATION ARCHITECT Lorene Meryl Ramakrishna [facility] [place] CPT-20140 Ofc Vst, Est Level II 12:09:58 NET APPLICATION ARCHITECT Lorene Merylgladys Durbin [facility] [place] CPT-47643 Ofc Vst, Est Level IV 09:31:48 NET APPLICATION ARCHITECT Lorenedada Durbin [facility] [place] CPT-78880 Ofc Vst, Est Level III 10:36:21 NET APPLICATION ARCHITECT Lorene Merylgladys Durbin [facility] [place] CPT-91298 Ofc Vst, Est Level IV 15:48:05 CDT Lorene Meryl Durbin [facility] [place] CPT-97534 Ofc Vst, Est Level III 11:58:31 CDT Lorene Merylgladys Durbin [facility] [place] CPT-04231 Ofc Vst, Est Level IV 18:14:00 CDT Lorene Meryl Ramakrishna [facility] [place] CPT-33195 Ofc Vst, New Level III 19:15:23 NET APPLICATION ARCHITECT Lorenedada Durbin [facility] [place] Procedures Code Procedure Name Date Entry Date Standard Description CPT-G0439 Medicare Annual Wellness Visit 14:14:39 CDT CPT-G8445 E-Prescribing Not sent due to no medication given 21:20: 47 CDT CPT-G8445 E-Prescribing Not sent due to no medication given 20:32: 44 NET APPLICATION ARCHITECT CPT-G8445 E-Prescribing Not sent due to no medication given 14:43: 31 NET APPLICATION ARCHITECT CPT-G8445 E-Prescribing Not sent due to no medication given 20:01: 57 NET APPLICATION ARCHITECT CPT-G8445 E-Prescribing Not sent due to no medication given 16:57: 33 CDT CPT-G8445 E-Prescribing Not sent due to no medication given 14:43: 50 CDT CPT-G8445 E-Prescribing Not sent due to no medication given 15:02: 07 CDT CPT-G8443 E-Prescribing Medication Sent 14:44:46 CDT CPT-G8443 E-Prescribing Medication Sent 16:13:39 CDT CPT-54841 Biopsy, skin/subcut/mucous membrane; sngl lsn 15:46:15 CDT CPT-G8445 E-Prescribing Not sent due to no medication given 14:23: 32 CDT CPT-G0438 Medicare Annual Wellness Visit Initial 14:23:32 CDT CPT-G8445 E-Prescribing Not sent due to no medication given 15:57: 50 CDT CPT-G8443 E-Prescribing Medication Sent 15:52:15 NET APPLICATION ARCHITECT CPT-G8443 E-Prescribing Medication Sent 15:08:06 CDT CPT-17193 Injection, Pneumovax 16:28:10 CDT CPT-G8443 E-Prescribing Medication Sent 15:52:30 CDT CPT-17284 EKG w/ Interpretation 17:24:06 CDT CPT-39491 EKG w/ Interpretation 11:58:31 CDT
--- OUTSIDE RECORDS SUMMARY | 2017-12-16 05:37 | XMS REPORT ---
Author Author FABRIZIO WHITE [facility] Address [address] [place] [address] Phone Unavailable Care Team Providers Care Packaging Supervisor Name Role Phone FABRIZIO WHITE Unavailable Unavailable PROBLEMS Unknown Problems ALLERGIES Substance Reaction Event Type Date Status Simvastatin Unknown Drug Allergy Jul, Active Percocet Unknown Drug Allergy Jul, Active Oxycodone HCl Unknown Drug Allergy Jul, Active Lisinopril Unknown Drug Allergy Jul, Active Hydrocodone-Acetaminophen Unknown Drug Allergy Jul, Active ENCOUNTERS Encounter Location Date Diagnosis [facility] [id number] [place] [phone] Jul, Dental examination Z01.20 [facility] [id number] [place] [address] [phone] Jul, Dental caries K02.9 and Dental examination Z01.20 [facility] [id number] [place] [address] [phone] Jan, Encounter for dental examination and cleaning without abnormal findings Z01.20 [facility] [id number] [place] [address] [phone] Jul, Encounter for dental examination and cleaning without abnormal findings Z01.[address] [id number] [phone] Jan, Encounter for dental examination Z01.20 [facility] [id number] [place] [address] [phone] Jan, Encounter for dental examination and cleaning without abnormal findings Z01.20 [facility] [id number] [place] [address] [phone] Nov, Dental caries K02.9 [facility] [address] [id number] [place] [phone] Oct, Encounter for dental examination Z01.20 [facility] [address] [facility] [id number] [place] [phone] Sep, Dental examination Z01.20 and Dental caries K02.9 [facility] [address] [facility] [id number] [place] [phone] Jun, Encounter for dental examination and cleaning without abnormal findings Z01.20 IMMUNIZATIONS No Known Immunizations SOCIAL HISTORY Never Assessed REASON FOR VISIT ADULT OUTREACH [facility] PLAN OF CARE Activity Details Follow Up 6 Months Reason:ON SITE RECALL VITAL SIGNS MEDICATIONS Medication Instructions Dosage Frequency Start Date End Date Duration Status MiraLax Active Ventolin HFA 108 (90 Base) MCG/ACT Inhalation every 4 hrs 2 puffs as needed 4h Not-Taking protonix 1 tab Active Tamsulosin HCl 0.4 MG Orally Once a day 1 capsule 24h Not-Taking Namenda 10 MG Orally Twice a day 1 tablet 12h Active Ferrous Sulfate 325 (65 Fe) MG Orally Once a day 1 tablet 24h Active Zocor 20 MG Orally Once a day 1 tablet in the evening 24h Active Coreg 12.5 MG Active Colace 100 MG Orally Once a day 1 capsule as needed 24h Active Trazodone HCl 100 MG Orally Once a day 1 tablet at bedtime 24h Active DuoNeb Not-Taking Vitamin D Active Calcarb 600/D Active Proscar 5 MG Orally Once a day 1 tablet 24h Active Norvasc 10 MG Orally Once a day 1 tablet 24h Active Exelon 9.5 MG/24HR Transdermal Once a day 1 patch to skin 24h Active Folic Acid Active NovoLog Flexpen Not-Taking Prednisone 1 tab Active Aplisol 5 UNIT/0.1ML Not-Taking Symbicort 160-4.5 MCG/ACT Inhalation Twice a day 2 puffs 12h Not- Taking Tylenol Not-Taking Zoloft 50 MG Orally Once a day 1 tablet 24h Active NovoLIN R ReliOn Not-Taking Melatonin Active Flomax 0.4 MG Orally Once a day 1 capsule 30 minutes after the same meal each day 24h Active RESULTS No Results PROCEDURES Procedure Date Ordered Result Body Site PROPHYLAXIS - ADULT August 03, 2017 TOPICAL FLUORIDE VARNISH August 03, 2017 Billing Notes on claim August 03, 2017 INSTRUCTIONS MEDICATIONS ADMINISTERED No Known Medications MEDICAL (GENERAL) HISTORY Type Description Date 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
--- OUTSIDE RECORDS SUMMARY | 2017-12-16 05:37 | XMS REPORT | Clinical Summary ---
Author Author User, [employer] Lorene Durbin DO, FACP Address Unknown [...] Instruction BISACODYL LAXATIVE 10 MG SUPP 1 TX QD PRN constipation BISACODYL [id number] No Longer Active Lorenedada Durbin PREDNISONE 2.5 MG TABS 1 PO DAILY PREDNISONE 23288485188 Active Lorenedada Durbin COREG 6.25 MG TABS 1 PO BID CARVEDILOL 30131107475 Active Lorenedada Durbin BENADRYL 25 MG CAP 1 PO TID prn DIPHENHYDRAMINE HCL 57018539067 No Longer Active Lorenedada Durbin LACTULOSE SOLN 30 ML PO BID PRN Constipation LACTULOSE SOLN 98143459281 No Longer Active Lorene Durbin LASIX 40 MG TAB 1 PO MWF FUROSEMIDE 65739193134 No Longer Active Lorene Durbin VITAMIN D 1000 UNIT TABS 1 PO Daily CHOLECALCIFEROL 61679896021 Active Lorene Durbin ZOCOR 20 MG TABS 1 PO DAILY SIMVASTATIN 43706685998 Active Elizabeth Dixon FINASTERIDE 5 MG TABS 1 PO DAILY FINASTERIDE 86746273147 Active Lorene Durbin NAMENDA 10 MG TABS 1 PO BID MEMANTINE HCL 57969850351 Active Elizabeth Dixon KENALOG 0.1 % CREA apply to affected areas BID TRIAMCINOLONE ACETONIDE No Longer Active Lorene Durbin DILANTIN 100 MG CAP 1 PO at 7am and 2 pm and 2 PO at HS PHENYTOIN SODIUM EXTENDED 76186907281 No Longer Active Lorene Durbin PREDNISONE 20 MG TAB 1 PO daily for 7 days then resume 5mg dosing as previous PREDNISONE 66244511357 No Longer Active Lorene Meryl Durbin AUGMENTIN 500-125 MG TAB 1 PO BID AMOXICILLIN-POT CLAVULANATE 53216506622 No Longer Active Lorene Meryl Durbin OCUFLOX 0.3 % SOLN 2 drops in right ear TID for 7 days OFLOXACIN 85445270627 No Longer Active Lorene Meryl Durbin PREDNISONE 20 MG TAB 1 PO daily for 7 days PREDNISONE 31638907744 No Longer Active Lorene Meryl Durbin KENALOG 0.1 % CREA apply to affected areas BID TRIAMCINOLONE ACETONIDE No Longer Active Lorene Meryl Durbin ATARAX 25 MG TAB 1 PO Q6hrs prn itching HYDROXYZINE HCL No Longer Active Lorene Meryl Durbin DETROL LA 4 MG CP24 1 PO daily TOLTERODINE TARTRATE 01327916477 No Longer Active Lorene Meryl Durbin FINASTERIDE 5 MG TABS 1 PO BID FINASTERIDE 35450424524 No Longer Active Lorene Meryl Durbin BACTRIM DS 800-160 MG TAB 1 PO MWF TRIMETHOPRIM- SULFAMETHOXAZOLE 47128742443 No Longer Active Lorene Meryl Durbin NYSTATIN POWD Apply Topically to groin BID for gaulding NYSTATIN 55297784385 No Longer Active Lorene Meryl Durbin TERBINAFINE HCL 1 % CREA Apply to affected area BID TERBINAFINE HCL 02738097051 No Longer Active Lorene Meryl Durbin CALTRATE 600 PLUS-VIT D 600-200 MG-IU TABS 1 PO BID CALCIUM-VITAMIN D Active Elizabeth Dixon VALTREX 1 GM TAB 1 PO BID VALACYCLOVIR HCL 29759807735 No Longer Active Lorene Meryl Durbin TESSALON 200 MG CAPS 1 PO TID prn cough BENZONATATE 95584673338 No Longer Active Elizabeth Dixon PREDNISONE 10 MG TABS 1 PO QD PREDNISONE 79876502540 No Longer Active Lorene Durbin PAXIL 20 MG TAB 1 PO DAILY PAROXETINE HCL 33575259154 Active Elizabethjenn Dixon TESSALON 200 MG CAPS 1 PO TID prn cough BENZONATATE 83488631823 No Longer Active Lorenedada Durbin FLOMAX 0.4 MG CAPS 1 PO QD for urinary retention TAMSULOSIN HCL 07155999389 Active Elizabeth Lizarragatis OMEPRAZOLE 40 MG CPDR 1 PO QD OMEPRAZOLE 82816208283 Active Elizabeth Lizarragatis FOLIC ACID 1 MG TABS 1 PO QD FOLIC ACID 09609367238 Active Elizabeth [place] FERROUS SULFATE 325 (65 FE) MG TABS 1 PO BID FERROUS SULFATE 18840306990 Active Elizabeth Dixon COLACE 100 MG CAPS 1 PO BID prevent constipation DOCUSATE SODIUM 60754902624 Active Elizabeth Dixon ACETAMINOPHEN 325 MG TABS 2 PO Q 4hrs PRN pain or fever ACETAMINOPHEN 10224254437 Active Lorenedada Durbin IMURAN 50 MG TABS 3 po daily AZATHIOPRINE 73486708231 No Longer Active Lorenedada Durbin TOVIAZ 4 MG [id number] 1 po daily FESOTERODINE FUMARATE 53111872571 No Longer Active Lorenedada Durbin COREG 12.5 MG TABS 1 po bid CARVEDILOL 16196844830 No Longer Active Lorene Durbin WAVESENSE PRESTO TEST STRP Check BS Daily DX: DIABETES GLUCOSE BLOOD 02226355806 No Longer Active Lorene Durbin OMEPRAZOLE 40 MG CPDR 1 PO Daily OMEPRAZOLE 95067374058 No Longer Active Lorenedada Durbin FLOMAX 0.4 MG CAPS 1 PO Daily TAMSULOSIN HCL 86295851599 No Longer Active Lorene Meryl Durbin MEPRON 750 MG/5ML SUSP 5 ml PO BID ATOVAQUONE 08796244006 No Longer Active Lorene Meryl Durbin PREDNISONE 5 MG TABS 2 po daily PREDNISONE 78210834667 No Longer Active Lorene Meryl Durbin TERAZOSIN HCL 2 MG CAPS 1 PO qhs TERAZOSIN HCL 76817766804 No Longer Active Lorene Meryl Durbin VITAMIN D 1000 UNIT TABS 1 PO Daily CHOLECALCIFEROL 25969743511 No Longer Active Lorene Meryl Durbin PEPCID 20 MG TAB 1 PO daily FAMOTIDINE 31247223727 No Longer Active Lorene Meryl Durbin VITAMIN B-12 100 MCG TABS 1 po daily CYANOCOBALAMIN 88535406025 No Longer Active Lorene Meryl Durbin IRON 325 (65 FE) MG TABS 1 PO daily FERROUS SULFATE 11878164202 No Longer Active Lorene Meryl Durbin CALCIUM 600 1500 MG TABS 1 PO QAM and 2 PO QHS CALCIUM CARBONATE 06609895992 No Longer Active Lorene Meryl Durbin MULTIVITAMINS TABS 1 po daily MULTIPLE VITAMIN 44224445631 No Longer Active Lorene Meryl Durbin FISH OIL 1000 MG CAPS 1 po daily OMEGA-3 FATTY ACIDS 53228749795 No Longer Active Lorene Meryl Durbin ASPIRIN 81 MG TAB 1 PO QD ASPIRIN 95095526336 No Longer Active Lorene Meryl Durbin NORVASC 5 MG TAB 1 PO Daily AMLODIPINE BESYLATE 87423624920 No Longer Active Lorene Meryl Durbin CLOBETASOL PROPIONATE 0.05 % CREA Apply small amount to affected areas on arms BID CLOBETASOL PROPIONATE 81673408843 No Longer Active Lorene Meryl Durbin LOTRISONE 0.05-1 % CREAM Apply a small amount to affected area on back BID CLOTRIMAZOLE-BETAMETHASONE 10684586918 No Longer Active Lorene Meryl Durbin CYCLOPHOSPHAMIDE 25 MG TABS take 5 tablets once daily CYCLOPHOSPHAMIDE 49253762112 No Longer Active Lorene Meryl Durbin PERCOCET 5-325 MG TAB 1 PO Q 6 hours OXYCODONE- ACETAMINOPHEN 13562055053 No Longer Active Lorene Meryl Durbin VALTREX 1 GM TAB 1 PO BID VALACYCLOVIR HCL 51656579144 No Longer Active Lorene Meryl Durbin ACCUPRIL 10 MG TABS 1 po daily QUINAPRIL HCL 11898105865 No Longer Active Lorene Meryl Durbin COZAAR 25 MG TAB 1 PO daily LOSARTAN POTASSIUM 62064952942 No Longer Active Elizabeth Dixon MAGNESIUM OXIDE 400 MG CAPS 1 PO daily MAGNESIUM OXIDE 53103169633 No Longer Active Lorene Meryl Durbin LOTRISONE 0.05-1 % CREAM Apply to affected areas twice daily prn CLOTRIMAZOLE-BETAMETHASONE 28469108570 No Longer Active Lorenedada Durbin FERROUS SULFATE 100 MG 1 PO daily FERROUS SULFATE 100 MG No Longer Active Lorene Meryl Durbin QUALAQUIN 324 MG CAPS 1 PO QHS prn QUININE SULFATE 07839877987 No Longer Active Lorene Meryl Durbin ROBITUSSIN A-C 10-100 MG/5ML SYRUP 1 teaspoon PO Q 4-6 hr prn ROBITUSSIN A-C 10-100 MG/5ML SYRUP 43462348513 No Longer Active Lorene Meryl Durbin BIAXIN XL PAC 500 MG TB24 2 pills at same time daily for 7 days CLARITHROMYCIN 10569752063 No Longer Active Lorene Meryl Durbin TESSALON 200 MG CAPS 1 PO TID prn cough BENZONATATE 66691259251 No Longer Active Lorene Meryl Durbin ROBITUSSIN A-C 10-100 MG/5ML SYRUP 1 teaspoon PO Q 4-6 hr prn ROBITUSSIN A-C 10-100 MG/5ML SYRUP 62434491593 No Longer Active Lorene Meryl Durbin BIAXIN XL PAC 500 MG TB24 2 pills at same time daily for 7 days CLARITHROMYCIN 15987259794 No Longer Active Lorene Meryl Durbin KEFLEX 500 MG CAP 1 PO TID for 7 days CEPHALEXIN 48315956778 No Longer Active Lorene Meryl Durbin FERROUS SULFATE 325 (65 FE) MG TABS 1 PO daily FERROUS SULFATE 83270086192 No Longer Active Lorene Meryl Durbin CINNAMON 500 MG CAPS 1 po daily CINNAMON 20886742938 No Longer Active Lorene Meryl Durbin XANAX 0.25 MG TABS 1 po q 4-6 hrs prn ALPRAZOLAM 85597130410 No Longer Active Lorene Meryl Durbin TRIAMCINOLONE ACETONIDE 0.1 % OINT Apply as directed TRIAMCINOLONE ACETONIDE 84006905315 No Longer Active Lorene Meryl Durbin KERALAC 50 % GEL as needed UREA 98143083427 No Longer Active Lorene Meryl Durbin AMITRIPTYLINE HCL 25 MG TAB 1 PO daily at night prn AMITRIPTYLINE HCL 54694666622 No Longer Active Lorene Meryl Durbin ZOCOR 5 MG TABS 1 PO QOD (on hold) SIMVASTATIN 16209288908 No Longer Active Lorene Meryl Durbin VIAGRA 50 MG TABS prn SILDENAFIL CITRATE 26913378935 No Longer Active Lorene Meryl Durbin DARVOCET-N 100 100-650 MG TABS 1 po q 6 hrs. prn pain PROPOXYPHENE N-APAP 16203620671 No Longer Active Lorene Meryl Durbin CYCLOBENZAPRINE HCL 10 MG TABS 1 po q 12 hrs. prn CYCLOBENZAPRINE HCL 23497049531 No Longer Active Lorene Meryl Durbin LORTAB 5 5-500 MG TABS 1 as needed HYDROCODONE- ACETAMINOPHEN 99952407522 No Longer Active Lorene Meryl Durbin ALBUTEROL 90 MCG/ACT AERS 2 puffs Q4-6hrs prn ALBUTEROL 27813216835 No Longer Active Lorene Meryl Durbin ROBITUSSIN A-C 10-100 MG/5ML SYRUP 5cc PO Q 4-6 hr prn ROBITUSSIN A-C 10-100 MG/5ML SYRUP 41860589195 No Longer Active Lorenedada Durbin ADVAIR DISKUS 100-50 MCG/DOSE MISC 1 puff BID FLUTICASONE-SALMETEROL 88924173188 No Longer Active Lorene Meryl Durbin AUGMENTIN 500-125 MG TABS 1 PO BID AMOXICILLIN-POT CLAVULANATE 76105322732 No Longer Active Lorene Meryl Durbin PLAVIX 75 MG TABS 1 po daily CLOPIDOGREL BISULFATE 52464292839 No Longer Active Lorene Meryl Durbin AMOXIL 500 MG TABS 1 PO TID AMOXICILLIN 77703119351 No Longer Active Lorenedada Durbin Immunizations Vaccine [...] Description Clinical Lists Update: BMP - Chemistry potassium, serum 5.0 mmol/L creatinine, serum 2.0 mg/dL carbon dioxide, venous blood 27.0 mmol/L glucose, plasma fasting 143 mg/dL Estimated Glomerular Filtration Rate (calc) 36 mL/min/1.73m2 anion gap, serum 12 chloride, serum 103 mmol/L urea nitrogen, blood 30 mg/dL calcium, serum 9.2 mg/dL sodium, serum 137 mmol/L Clinical Lists Update: CBC,[facility] - Chemistry glucose, plasma fasting 133 mg/dL Estimated Glomerular Filtration Rate (calc) 37 mL/min/1.73m2 chloride, serum 103 mmol/L creatinine, serum 1.9 mg/dL sodium, serum 139 mmol/L calcium, serum 9.4 mg/dL urea nitrogen, blood 27 mg/dL carbon dioxide, venous blood 31.0 mmol/L anion gap, serum 10 potassium, serum 5.0 mmol/L Clinical Lists Update: CBC,[facility] - Hematology hemoglobin, blood 13.2 g/dL red blood cell distribution width 14.0 % platelet count 137 10*3/mm3 mean corpuscular volume, RBC 100 fL leukocyte count, blood 8.6 10*3/mm3 hematocrit, blood 43 % erythrocyte (RBC) count 4.32 10*6/mm3 Clinical Lists Update: CBC,BMP,UA DR ANNE LAB[facility] - Chemistry urea nitrogen, blood 26 mg/dL anion gap, serum 10 glucose, plasma fasting 150 mg/dL Estimated Glomerular Filtration Rate (calc) 34 mL/min/1.73m2 creatinine, serum 2.0 mg/dL carbon dioxide, venous blood 30.0 mmol/L chloride, serum 104 mmol/L sodium, serum 139 mmol/L potassium, serum 5.0 mmol/L calcium, serum 9.3 mg/dL Clinical Lists Update: CBC,BMP,UA DR ANNE LABS - Hematology erythrocyte (RBC) count 4.31 10*6/mm3 platelet count 145 10*3/mm3 mean corpuscular volume, RBC 101 fL hemoglobin, blood 13.4 g/dL red blood cell distribution width 14.6 % leukocyte count, blood 8.9 10*3/mm3 hematocrit, blood 44 % Clinical Lists Update: CBC,BMP,UA DR ANNE LABS - Urinalysis ketones, urine, by test strip neg hyaline casts, urine none /[LPF] specific gravity, urine 1.020 protein, urine, semiquantitative (dipstick) neg RBC urine by microscopy none glucose, urine, semiquantitative neg bilirubin, urine neg epithelial cells, urine none /[LPF] pH, urine, semiquantitative 6.5 nitrite, urine, semiquantitative neg urobilinogen, urine, semiquantitative (dipstick) 0.2 WBC urine on microscopy none {Cells}/[HPF] appearance, urine Clear Yellow blood in urine (hemoglobin) by dipstick trace bacteria, urine microscopy none mucus on urinalysis none Clinical Lists Update: CBC,CMP,FLP,TSH,HgA1c,Ferritin - Chemistry chloride, serum 107 mmol/L cholesterol/HDL ratio, serum, percent 4.1 cholesterol, serum 165 mg/dL carbon dioxide, venous blood 28.0 mmol/L creatinine, serum 1.9 mg/dL Estimated Glomerular Filtration Rate (calc) 38 mL/min/1.73m2 ferritin, serum 154.9 ng/mL glucose, plasma fasting 115 mg/dL HDL cholesterol, serum 40.0 mg/dL hemoglobin A1C, blood, as % of total hemoglobin 6.1 % LDL cholesterol, serum 99 mg/dL albumin, serum 3.9 g/dL alkaline phosphatase, serum 34 U/L anion gap, serum 11 bilirubin, serum, total 0.4 mg/dL urea nitrogen, blood 28 mg/dL calcium, serum 9.0 mg/dL triglyceride, serum, fasting 129 mg/dL thyroid stimulating hormone, serum 3.61 u[iU]/mL potassium, serum 4.6 mmol/L protein, total, serum 6.5 g/dL aspartate aminotransferase (SGOT), serum 18 U/L alanine aminotransferase (SGPT), serum 18 U/L sodium, serum 141 mmol/L Clinical Lists Update: CBC,CMP,FLP,TSH,HgA1c,Ferritin - Hematology leukocyte count, blood 7.5 10*3/mm3 mean corpuscular volume, RBC 97 fL hemoglobin, blood 12.6 g/dL hematocrit, blood 40 % red blood cell distribution width 13.8 % erythrocyte (RBC) count 4.10 10*6/mm3 platelet count 132 10*3/mm3 Clinical Lists Update: CBC,CMP,FLP.UA - Chemistry bilirubin, serum, total 0.3 mg/dL triglyceride, serum, fasting 131 mg/dL bilirubin, serum, direct 0.0 mg/dL anion gap, serum 8 alkaline phosphatase, serum 35 U/L albumin, serum 3.7 g/dL LDL cholesterol, serum 101 mg/dL calcium, serum 9.3 mg/dL HDL cholesterol, serum 40.0 mg/dL urea nitrogen, blood 27 mg/dL glucose, plasma fasting 102 mg/dL Estimated Glomerular Filtration Rate (calc) 9.3 mL/min/1.73m2 creatinine, serum 1.9 mg/dL carbon dioxide, venous blood 31.0 mmol/L cholesterol, serum 167 mg/dL cholesterol/HDL ratio, serum, percent 4.2 chloride, serum 106 mmol/L sodium, serum 140 mmol/L alanine aminotransferase (SGPT), serum 19 U/L aspartate aminotransferase (SGOT), serum 19 U/L protein, total, serum 6.2 g/dL potassium, serum 4.7 mmol/L Clinical Lists Update: CBC,CMP,FLP.UA - Hematology leukocyte count, blood 7.9 10*3/mm3 platelet count 137 10*3/mm3 mean corpuscular volume, RBC 99 fL red blood cell distribution width 14.2 % hematocrit, blood 41 % hemoglobin, blood 12.9 g/dL erythrocyte (RBC) count 4.10 10*6/mm3 Clinical Lists Update: CBC,CMP,FLP.UA - Urinalysis bacteria, urine microscopy none blood in urine (hemoglobin) by dipstick trace RBC urine by microscopy none bilirubin, urine neg protein, urine, semiquantitative (dipstick) neg appearance, urine Clear Yellow glucose, urine, semiquantitative neg mucus on urinalysis none specific gravity, urine 1.015 hyaline casts, urine none /[LPF] ketones, urine, by test strip neg nitrite, urine, semiquantitative neg urobilinogen, urine, semiquantitative (dipstick) 0.2 pH, urine, semiquantitative 7.0 WBC urine on microscopy none {Cells}/[HPF] epithelial cells, urine 0-5 /[LPF] Clinical Lists Update: IN [facility] - Chemistry thyroid stimulating hormone, serum 1.59 u[iU]/mL calcium, serum 9.0 mg/dL potassium, serum 4.2 mmol/L protein, total, serum 6.3 g/dL protein, total, serum 5.4 g/dL aspartate aminotransferase (SGOT), serum 19 U/L aspartate aminotransferase (SGOT), serum 18 U/L alanine aminotransferase (SGPT), serum 37 U/L alanine aminotransferase (SGPT), serum 21 U/L sodium, serum 144 mmol/L sodium, serum 143 mmol/L chloride, serum 110 mmol/L chloride, serum 109 mmol/L carbon dioxide, venous blood 23 mmol/L carbon dioxide, venous blood 27 mmol/L creatinine, serum 1.76 mg/dL creatinine, serum 1.77 mg/dL Estimated Glomerular Filtration Rate (calc) 38 mL/min/1.73m2 Estimated Glomerular Filtration Rate (calc) 38 mL/min/1.73m2 glucose, plasma fasting 111 mg/dL glucose, plasma fasting 125 mg/dL albumin, serum 3.5 g/dL albumin, serum 3.1 g/dL alkaline phosphatase, serum 30 U/L alkaline phosphatase, serum 24 U/L anion gap, serum 11 bilirubin, serum, total 0.5 mg/dL bilirubin, serum, total 0.5 mg/dL urea nitrogen, blood 23 mg/dL urea nitrogen, blood 52 mg/dL calcium, serum 8.9 mg/dL potassium, serum 4.1 mmol/L Clinical Lists Update: [facility] - Hematology mean corpuscular volume, RBC 94.9 fL leukocyte count, blood 6.5 10*3/mm3 leukocyte count, blood 9.78 10*3/mm3 platelet count 125 10*3/mm3 platelet count 93 10*3/mm3 erythrocyte (RBC) count 4.00 10*6/mm3 erythrocyte (RBC) count 4.28 10*6/mm3 red blood cell distribution width 12.8 % red blood cell distribution width 12.9 % hematocrit, blood 38 % hematocrit, blood 40.6 % hemoglobin, blood 12.6 g/dL hemoglobin, blood 13.5 g/dL mean corpuscular volume, RBC 94 fL Clinical Lists Update: [facility] - Urinalysis mucus on urinalysis neg blood in urine (hemoglobin) by dipstick neg urobilinogen, urine, semiquantitative (dipstick) normal nitrite, urine, semiquantitative neg pH, urine, semiquantitative 6 protein, urine, semiquantitative (dipstick) neg RBC urine by microscopy rare specific gravity, urine 1.015 epithelial cells, urine 0-2 /[LPF] glucose, urine, semiquantitative neg hyaline casts, urine present /[LPF] ketones, urine, by test strip neg appearance, urine Clear Yellow bacteria, urine microscopy few bilirubin, urine neg WBC urine on microscopy rare {Cells}/[HPF] Office Visit: Dr Durbin's Check Up: Established Patient Visit - Chemistry chloride, serum 102 mmol/L sodium, serum 141 mmol/L cholesterol, serum 177 mg/dL cholesterol, serum 157 mg/dL carbon dioxide, venous blood 30.0 mmol/L carbon dioxide, venous blood 28.0 mmol/L creatinine, serum 1.9 mg/dL creatinine, serum 1.9 mg/dL Estimated Glomerular Filtration Rate (calc) 38 mL/min/1.73m2 Estimated Glomerular Filtration Rate (calc) 38 mL/min/1.73m2 ferritin, serum 195.9 ng/mL ferritin, serum 180.8 ng/mL glucose, plasma fasting 129 mg/dL glucose, plasma fasting 120 mg/dL chloride, serum 107 mmol/L sodium, serum 139 mmol/L alanine aminotransferase (SGPT), serum 19 U/L alanine aminotransferase (SGPT), serum 22 U/L aspartate aminotransferase (SGOT), serum 18 U/L aspartate aminotransferase (SGOT), serum 21 U/L protein, total, serum 6.6 g/dL protein, total, serum 7.0 g/dL potassium, serum 4.3 mmol/L potassium, serum 4.7 mmol/L triglyceride, serum, fasting 109 mg/dL triglyceride, serum, fasting 156 mg/dL calcium, serum 9.1 mg/dL calcium, serum 9.5 mg/dL hemoglobin A1C, blood, as % of total hemoglobin 6.2 % hemoglobin A1C, blood, as % of total hemoglobin 6.1 % albumin, serum 4.2 g/dL albumin, serum 4.0 g/dL alkaline phosphatase, serum 36 U/L alkaline phosphatase, serum 36 U/L anion gap, serum 12 anion gap, serum 10 bilirubin, serum, total 0.4 mg/dL bilirubin, serum, total 0.4 mg/dL urea nitrogen, blood 30 mg/dL urea nitrogen, blood 27 mg/dL Office Visit: Dr Durbin's Check Up: Established Patient Visit - Hematology red blood cell distribution width 14.4 % red blood cell distribution width 15.0 % leukocyte count, blood 7.8 10*3/mm3 leukocyte count, blood 11.1 10*3/mm3 mean corpuscular volume, RBC 98 fL mean corpuscular volume, RBC 102 fL hematocrit, blood 44 % erythrocyte (RBC) count 4.36 10*6/mm3 platelet count 146 10*3/mm3 platelet count 149 10*3/mm3 hemoglobin, blood 14.1 g/dL hemoglobin, blood 13.5 g/dL hematocrit, blood 45 % erythrocyte (RBC) count 4.60 10*6/mm3 Encounters Code Encounter Date Provider Facility CPT-05082 Ofc Vst, Est Level III 16:04:23 CDT Lorene Durbin DO [facility]AC[facility] CPT-80305 Ofc Vst, Est Level III 19:00:13 FELLER OPERATOR Lorene Durbin DO FACP CPT-06297 Ofc Vst, Est Level III 21:20:47 CDT Lorene Durbin DO FACP CPT-54991 Ofc Vst, Est Level III 20:32:44 FELLER OPERATOR Lorene Sorensen Durbin, DO, FACP CPT-19872 Ofc Vst, Est Level III 14:43:31 FELLER OPERATOR Lorene Sorensen Durbin, DO, FACP CPT-47871 Ofc Vst, Est Level III 20:01:57 FELLER OPERATOR Lorene Sorensen Durbin, DO, FACP CPT-16561 Ofc Vst, Est Level III 16:57:33 CDT Lorene Meryl Sorensen Durbin, DO, FACP CPT-70224 Ofc Vst, Est Level III 14:43:50 CDT Lorene Sorensen Durbin, DO, FACP CPT-44657 Ofc Vst, Est Level III 15:02:07 CDT Lorenedada Sorensen Durbin, DO, FACP CPT-17216 Ofc Vst, Est Level III 14:44:46 CDT Lorenedada Sorensen Durbin, DO, FACP CPT-01111 Ofc Vst, Est Level IV 16:13:39 CDT Lorenedada Sorensen Durbin, DO, FACP CPT-76427 Ofc Vst, Est Level III 11:48:41 CDT Lorenedada Sorensen Durbin, DO, FACP CPT-12473 Ofc Vst, Est Level III 15:46:15 CDT Lorene Meryl Sorensen Durbin, DO, FACP CPT-66532 Ofc Vst, Est Level IV 15:57:50 CDT Lorene Sorensen Durbin, DO, FACP CPT-55079 Ofc Vst, Est Level III 16:05:36 FELLER OPERATOR Lorene Meryl Sorensen Durbin, DO, FACP CPT-45355 Ofc Vst, Est Level IV 15:52:15 FELLER OPERATOR Lorene Meryl Sorensen Durbin, DO, FACP CPT-47974 Ofc Vst, Est Level III 15:08:06 CDT Lorene Meryl Sorensen Durbin, DO, FACP CPT-95306 Ofc Vst, Est Level IV 15:06:29 CDT Lorene Meryl Sorensen Durbin, DO, FACP CPT-73899 Ofc Vst, Est Level IV 13:29:16 CDT Lorene Meryl Paulson S Durbin, DO, FACP CPT-22699 Ofc Vst, Est Level V 13:50:55 FELLER OPERATOR Lorene Meryl Paulson S Ramakrishna, DO, FACP CPT-47850 Ofc Vst, Est Level IV 11:10:14 FELLER OPERATOR Lorene Meryl Sorensen Ramakrishna, DO, FACP CPT-42538 Ofc Vst, Est Level III 15:28:22 CDT Lorene Meryl Sorensen Ramakrishna, DO, FACP CPT-28662 Ofc Vst, New Level IV 14:17:27 CDT Lorene Meryl Sorensen Ramakrishna, DO, FACP CPT-42488 Ofc Vst, New Level II 14:17:27 CDT Lorene Meryl Sorensen Ramakrishna, DO, FACP CPT-32788 Ofc Vst, Est Level IV 10:59:16 CDT Lorene Meryl Sorensen Ramakrishna, DO, FACP CPT-55355 Ofc Vst, Est Level II 16:12:29 CDT Lorene Meryl Paulson S Ramakrishna, DO, FACP CPT-47473 Ofc Vst, Est Level IV 10:53:48 CDT Lorene Meryl Sorensen Ramakrishna, DO, FACP CPT-96851 Office Consult, Level III 11:11:19 FELLER OPERATOR Lorene Merylgladys Sorensen Duribn, DO, FACP CPT-21598 Ofc Vst, Est Level IV 11:12:23 CDT Lorene Meryl Sorensen Durbin, DO, FACP CPT-89950 Ofc Vst, Est Level IV 11:46:11 CDT Lorene Meryl Sorensen Durbin, DO, FACP CPT-34733 Ofc Vst, Est Level IV 15:36:14 CDT Lorene Meryl Sorensen Durbin, DO, FACP CPT-09999 Ofc Vst, Est Level IV 11:36:09 FELLER OPERATOR Lorene Sorensen Ramakrishna, DO, FACP CPT-46674 Ofc Vst, Est Level IV 16:28:10 CDT Lorene Meryl Sorensen Ramakrishna, DO, FACP CPT-97018 Ofc Vst, Est Level IV 15:52:30 CDT Lorene Meryl Sorensen Ramakrishna, DO, FACP CPT-68040 Ofc Vst, Est Level III 11:48:57 CDT Lorene Meryl Sorensen Durbin, DO, FACP CPT-58203 Ofc Vst, Est Level IV 09:15:20 FELLER OPERATOR Lorene Sorensen Ramakrishna, DO, FACP CPT-33691 Ofc Vst, Est Level IV 16:43:12 FELLER OPERATOR Lorene Meryl Sorensen Ramakrishna, DO, FACP CPT-65063 Ofc Vst, Est Level III 14:52:39 CDT Lorene Meryl Sorensen Durbin, DO, FACP CPT-22654 Ofc Vst, Est Level IV 11:27:37 CDT Lorene Meryl Sorensen Durbin, DO, FACP CPT-72161 Ofc Vst, Est Level III 09:53:01 FELLER OPERATOR Lorene Meryl Sorensen Ramakrishna, DO, FACP CPT-18025 Ofc Vst, Est Level IV 09:49:25 CDT Lorene Meryl Durbin DO, FACP CPT-04011 Ofc Vst, Est Level IV 11:33:29 CDT Lorene Durbin DO, FACP CPT-89306 Ofc Vst, Est Level IV 14:11:50 FELLER OPERATOR Lorene Durbin [facility] [employer] CPT-64023 Ofc Vst, Est Level IV 17:26:08 FELLER OPERATOR Lorene Durbin [facility] [employer] CPT-45083 Ofc Vst, Est Level IV 10:40:42 FELLER OPERATOR Lorene Durbin [facility] [employer] CPT-23894 Ofc Vst, Est Level IV 15:05:22 CDT Lorene Meryl Durbin [facility] [employer] [facility] [employer] CPT-22726 Ofc Vst, Est Level IV 14:42:32 CDT Lorene Meryl Durbin [facility] [employer] [facility] [employer] CPT-91640 Ofc Vst, Est Level III 16:05:07 CDT Lorene Meryl Durbin [facility] [employer] CPT-46354 Ofc Vst, Est Level V 17:24:06 CDT Lorene Meryl Durbin [facility] [employer] CPT-60195 Ofc Vst, Est Level IV 16:02:46 CDT Lorene Durbin [facility] [employer] CPT-83555 Ofc Vst, Est Level III 12:50:41 FELLER OPERATOR Lorene Durbin [facility] [employer] CPT-79332 Ofc Vst, Est Level II 12:09:58 FELLER OPERATOR Lorene Durbin [facility] [employer] CPT-88006 Ofc Vst, Est Level IV 09:31:48 FELLER OPERATOR Lorene D[facility] CPT-81414 Ofc Vst, Est Level III 10:36:21 FELLER OPERATOR Lorene [facility] CPT-66337 Ofc Vst, Est Level IV 15:48:05 CDT Lorene Meryl Ramakrishna [facility] CPT-19050 Ofc Vst, Est Level III 11:58:31 CDT Lorene Meryl Ramakrishna [facility] CPT-08783 Ofc Vst, Est Level IV 18:14:00 CDT Lorene Meryl Ramakrishna [facility] CPT-61397 Ofc Vst, New Level III 19:15:23 FELLER OPERATOR Lorene Meryl Durbin [facility] Physician [place] Procedures Code Procedure Name Date Entry Date Standard Description CPT-G0439 Medicare Annual Wellness Visit 14:14:39 CDT CPT-G8445 E-Prescribing Not sent due to no medication given 21:20: 47 CDT CPT-G8445 E-Prescribing Not sent due to no medication given 20:32: 44 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 CPT-G8445 E-Prescribing Not sent due to no medication given 14:43: 31 FELLER OPERATOR CPT-G8445 E-Prescribing Not sent due to no medication given 20:01: 57 FELLER OPERATOR CPT-G8445 E-Prescribing Not sent due to no medication given 16:57: 33 CDT CPT-G8445 E-Prescribing Not sent due to no medication given 14:43: 50 CDT CPT-G8445 E-Prescribing Not sent due to no medication given 15:02: 07 CDT CPT-G8443 E-Prescribing Medication Sent 14:44:46 CDT CPT-G8443 E-Prescribing Medication Sent 16:13:39 CDT CPT-37239 Biopsy, skin/subcut/mucous membrane; sngl lsn 15:46:15 CDT CPT-G8445 E-Prescribing Not sent due to no medication given 14:23: 32 CDT CPT-G0438 Medicare Annual Wellness Visit Initial 14:23:32 CDT CPT-G8445 E-Prescribing Not sent due to no medication given 15:57: 50 CDT CPT-G8443 E-Prescribing Medication Sent 15:52:15 FELLER OPERATOR CPT-G8443 E-Prescribing Medication Sent 15:08:06 CDT CPT-67523 Injection, Pneumovax 16:28:10 CDT CPT-G8443 E-Prescribing Medication Sent 15:52:30 CDT CPT-96285 EKG w/ Interpretation 17:24:06 CDT CPT-08731 EKG w/ Interpretation 11:58:31 CDT
--- OUTSIDE RECORDS SUMMARY | 2017-12-16 05:37 | XMS REPORT ---
Author Author RAYMOND DOOLEY [facility] Address Unknown Care Team Providers Care Special Equipment Technician Name Role Phone RAYMOND DOOLEY Unavailable PROBLEMS Unknown Problems ALLERGIES Substance Reaction Event Type Date Status Simvastatin Unknown Drug Allergy Jul, Active Percocet Unknown Drug Allergy Jul, Active Oxycodone HCl Unknown Drug Allergy Jul, Active Lisinopril Unknown Drug Allergy Jul, Active Hydrocodone-Acetaminophen Unknown Drug Allergy Jul, Active ENCOUNTERS Encounter Location Date Diagnosis [facility] [id number] [place] [address] [phone] Jul, Dental examination Z01.20 [facility] [id number] [place] [address] [id number] Jul, Dental caries K02.9 and Dental examination Z01.20 [facility] [id number] [place] [address] [phone] Jan, Encounter for dental examination and cleaning without abnormal findings Z01.20 [facility] [id number] [place] [address] [phone] Jul, Encounter for dental examination and cleaning without abnormal findings Z01.[address] [id number] [phone] Jan, Encounter for dental examination Z01.20 [facility] [id number] [place] [address] [phone] Jan, Encounter for dental examination and cleaning without abnormal findings Z01.20 [facility] [id number] [place] [address] [phone] Nov, Dental caries K02.9 [facility] [id number] [place] [address] [phone] Oct, Encounter for dental examination Z01.20 [facility] [address] [facility] [id number] [place] [phone] Sep, Dental examination Z01.20 and Dental caries K02.9 [facility] [address] [facility] [id number] [place] [phone] Jun, Encounter for dental examination and cleaning without abnormal findings Z01.20 IMMUNIZATIONS No Known Immunizations SOCIAL HISTORY Never Assessed REASON FOR VISIT PAIN PLAN OF CARE Activity Details Follow Up prn Reason:Restorative, Extraction, [place]EN[place] VITAL SIGNS Blood pressure systolic 140 mmHg 2017-07-17 Blood pressure diastolic 86 mmHg 2017-07-17 MEDICATIONS Medication Instructions Dosage Frequency Start Date End Date Duration Status Trazodone HCl 100 MG Orally Once a day 1 tablet at bedtime 24h Active Proscar 5 MG Orally Once a day 1 tablet 24h Active Exelon 9.5 MG/24HR Transdermal Once a day 1 patch to skin 24h Active Zoloft 50 MG Orally Once a day 1 tablet 24h Active Aplisol 5 UNIT/0.1ML Not-Taking Tamsulosin HCl 0.4 MG Orally Once a day 1 capsule 24h Active Melatonin Active Tylenol Active DuoNeb Not-Taking NovoLog Flexpen Active Ferrous Sulfate 325 (65 Fe) MG Orally Once a day 1 tablet 24h Active Namenda 10 MG Orally Twice a day 1 tablet 12h Active Zocor 20 MG Orally Once a day 1 tablet in the evening 24h Active Flomax 0.4 MG Orally Once a day 1 capsule 30 minutes after the same meal each day 24h Active Ventolin HFA 108 (90 Base) MCG/ACT Inhalation every 4 hrs 2 puffs as needed 4h Active Calcarb 600/D Active Colace 100 MG Orally Once a day 1 capsule as needed 24h Active Coreg 12.5 MG Active NovoLIN R ReliOn Not-Taking Prednisone 1 tab Active Vitamin D Active protonix 1 tab Active Symbicort 160-4.5 MCG/ACT Inhalation Twice a day 2 puffs 12h Active Folic Acid Active Norvasc 10 MG Orally Once a day 1 tablet 24h Active MiraLax Active RESULTS No Results PROCEDURES Procedure Date Ordered Result Body Site LTD ORAL EVALUATION - PROBLEM FOCUS July 17, 2017 INTRAORL-PERIAPICAL 1 FILM 24299 July 17, 2017 SURG REMOVAL ERUPTED TOOTH July 17, 2017 INSTRUCTIONS MEDICATIONS ADMINISTERED No Known Medications [...]
--- OUTSIDE RECORDS SUMMARY | 2017-12-16 05:38 | XMS REPORT ---
Author Author SIRISHA GONSALVES [facility] Address [address] [place] [address] Care Team Providers Care Supervisor [employer] Name Role Phone SIRISHA GONSLAVES Unavailable PROBLEMS Unknown Problems ALLERGIES Substance Reaction Event Type Date Status Simvastatin Unknown Drug Allergy Jan, Active Percocet Unknown Drug Allergy Jan, Active Oxycodone HCl Unknown Drug Allergy Jan, Active Lisinopril Unknown Drug Allergy Jan, Active Hydrocodone-Acetaminophen Unknown Drug Allergy Jan, Active ENCOUNTERS Encounter Location Date Diagnosis [facility] [id number] [place] [address] [phone] Jul, Dental examination Z01.20 [facility] [id number] [place] [address] [phone] Jul, Dental caries K02.9 and Dental examination Z01.20 [facility] [id number] [place] [address] [phone] Jan, Encounter for dental examination and cleaning without abnormal findings Z01.20 [facility] [id number] [place] [address] [phone] Jul, Encounter for dental examination and cleaning without abnormal findings Z01.[address] [id number] [phone] Jan, Encounter for dental examination Z01.20 [facility] [address] [id number] [place] [address] [phone] Jan, Encounter for dental examination and cleaning without abnormal findings Z01.20 [facility] [address] [id number] [phone] Nov, Dental caries K02.9 [facility] [id number] [place] [address] [phone] Oct, Encounter for dental examination Z01.20 [facility] [address] [id number] [place] [phone] Sep, Dental examination Z01.20 and Dental caries K02.9 [facility] [address] [id number] [place] [phone] Jun, Encounter for dental examination and cleaning without abnormal findings Z01.20 IMMUNIZATIONS No Known Immunizations SOCIAL HISTORY Never Assessed REASON FOR VISIT PLAN OF CARE VITAL SIGNS MEDICATIONS Medication Instructions Dosage Frequency Start Date End Date Duration Status Namenda 10 MG Orally Twice a day 1 tablet 12h Active Coreg 12.5 MG Active Folic Acid Active Prednisone 1 tab Active Symbicort 160-4.5 MCG/ACT Inhalation Twice a day 2 puffs 12h Active Colace 100 MG Orally Once a day 1 capsule as needed 24h Active Calcarb 600/D Active Trazodone HCl 100 MG Orally Once a day 1 tablet at bedtime 24h Active Melatonin Active Flomax 0.4 MG Orally Once a day 1 capsule 30 minutes after the same meal each day 24h Active Vitamin D Active protonix 1 tab Active MiraLax Active Tylenol Active Proscar 5 MG Orally Once a day 1 tablet 24h Active Ventolin HFA 108 (90 Base) MCG/ACT Inhalation every 4 hrs 2 puffs as needed 4h Active Zoloft 50 MG Orally Once a day 1 tablet 24h Active Norvasc 10 MG Orally Once a day 1 tablet 24h Active NovoLog Flexpen Active Zocor 20 MG Orally Once a day 1 tablet in the evening 24h Active Ferrous Sulfate 325 (65 Fe) MG Orally Once a day 1 tablet 24h Active Exelon 9.5 MG/24HR Transdermal Once a day 1 patch to skin 24h Active Tamsulosin HCl 0.4 MG Orally Once a day 1 capsule 24h Active RESULTS No Results PROCEDURES Procedure Date Ordered Result Body Site SCREENING OF A PATIENT Feb 09, 2017 Billing Notes on claim Feb 09, 2017 INSTRUCTIONS MEDICATIONS ADMINISTERED No Known Medications [...]
--- OUTSIDE RECORDS SUMMARY | 2017-12-16 05:38 | XMS REPORT ---
Author MCKENZIE Silva [facility] eClinicalWorks Address Unknown Phone Unavailable Care Team Providers Care Jewel Sawyer Name Role Phone MCKENZIE ARBOLEDA CP Unavailable Allergies, Adverse Reactions, Alerts Substance Reaction Event Type Oxycodone HCl Info Not Available Drug Allergy Hydrocodone-Acetaminophen Info Not Available Drug Allergy Problems Problem Type Condition Code Onset Dates Condition Status Assessment Encounter for dental examination Z01.20 Active Problem Encounter for dental examination Z01.20 Active Medications Medication Code System Code Instructions Start Date End Date Status Dosage Aplisol [facility] [address]-39 5 UNIT/0.1ML Intradermal not defined Trazodone HCl [facility] [address]-31 100 MG Orally Once a day 1 tablet at bedtime Coreg [facility] [address]-76 12.5 MG Orally not defined Zoloft [facility] [address]-13 50 MG Orally Once a day 1 tablet Proscar [facility] [address]-06 5 MG Orally Once a day 1 tablet Tylenol [facility] [address]-74 not defined Melatonin [facility] [address] not defined Zocor [facility] [address]-52 20 MG Orally Once a day 1 tablet in the evening Norvasc [facility] [address]-49 10 MG Orally Once a day 1 tablet NovoLog Flexpen [facility] [address]-00 not defined Ferrous Sulfate [facility] [address]-12 325 (65 Fe) MG Orally Once a day 1 tablet Symbicort [facility] [address]-26 160-4.5 MCG/ACT Inhalation Twice a day 2 puffs Vitamin D [facility] [address]-75 not defined Folic Acid [facility] [address]-34 not defined Namenda [facility] [address]-95 10 MG Orally Twice a day 1 tablet Colace [facility] [address]-71 100 MG Orally Once a day 1 capsule as needed MiraLax [facility] [address]-29 not defined Exelon [facility] [address]-83 9.5 MG/24HR Transdermal Once a day 1 patch to skin Prednisone NDC 0 [place] [address]-94 0.4 MG Orally Once a day 1 capsule 30 minutes after the same meal each day protonix NDC 0 Oral 1 tab Calcarb 600/D NDC 0 not defined Procedures Procedure Coding System Code Date INTRAORL-PERIAPICAL 1 FILM 43421 CPT-4 D0220 November 13, 2015 INTRAORL-PERIAPICAL EA ADD FILM CPT-4 D0230 November 13, 2015 COMP ORAL EVALUATION - NEW/EST PT CPT-4 D0150 November 13, 2015 Full mouth debridement CPT-4 D4355 November 13, 2015 PANORAMIC FILM SEE ALSO CODE 01199 CPT-4 D0330 November 13, 2015 INTRAORL-PERIAPICAL EA ADD FILM CPT-4 D0230 November 13, 2015 INTRAORL-PERIAPICAL EA ADD FILM CPT-4 D0230 November 13, 2015 BITEWING - SINGLE FILM CPT-4 D0270 November 13, 2015 INTRAORL-PERIAPICAL EA ADD FILM CPT-4 D0230 November 13, 2015 Vital Signs Date/Time: November 13, 2015 Blood Pressure Diastolic 76 mmHg Blood Pressure Systolic 156 mmHg Cardiac Monitoring Heart Rate 68 bpm Results No Known Results Summary Purpose eClinicalWorks Submission
--- OUTSIDE RECORDS SUMMARY | 2017-12-16 05:38 | XMS REPORT ---
Author FABRIZIO Carr Organization eClinical[employer] Address Unknown Phone Unavailable Care Team Providers Care Plywood Layup Line Core Feeder Name Role Phone FABRIZIO WHITE CP Unavailable Allergies No Known Allergies Problems Problem Type Condition Code Onset Dates Condition Status Assessment Encounter for dental examination and cleaning without abnormal findings Z01.20 Active Problem Encounter for dental examination Z01.20 Active Medications No Known Medications Procedures Procedure Coding System Code Date TOPICAL FLUORIDE VARNISH CPT-4 D1206 Feb 08, 2016 PROPHYLAXIS - ADULT CPT-4 D1110 Feb 08, 2016 Results No Known Results Summary Purpose eClinicalWorks Submission
--- OUTSIDE RECORDS SUMMARY | 2017-12-16 05:38 | XMS REPORT | Continuity of Care Document ---
Author Author [facility] Organization [facility] Address Unknown Phone Unavailable Support Name Relationship Address Phone JOHNATHAN BLACK DO Caregiver [address] [place] [address] CORY MONTENEGRO Next Of Kin [address] [place] [address] Insurance Providers Payer Name Policy Number Subscriber Name Relationship Wps Medicare [id number] Bela Ferguson 18 Self / Same As Patient Blue Cross Mc[employer] Supp [id number] Bela Ferguson 18 Self / Same As Patient Advance Directives Directive Response Recorded Date/Time Advance Directives Yes 07/24/14 6:19pm Health Care Power of Brancher Arlene MCCOLLUM, DAUGHTER 07/24/14 6:19pm Organ Donor Yes 07/24/14 6:19pm Resuscitation Status Full Code 07/24/14 6:19pm Problems No known problems or medical conditions. Medications Medication Dose Route Sig Days/Qty Instructions Order Date Discontinued Date Status Carvedilol 6.25 Mg PO TWICE A DAY 07/24/14 Active Calcium Carbonate/Vitamin D3 1 Tab PO TWICE A DAY 07/24/14 Active Paroxetine Hcl 20 Mg PO DAILY 07/24/14 Active Memantine 10 Mg PO TWICE A DAY 07/24/14 Active Simvastatin 20 Mg PO BEDTIME 07/24/14 Active Finasteride 5 Mg PO DAILY 07/24/14 Active Folic Acid 1 Mg PO DAILY 07/24/14 Active Ferrous Sulfate 325 Mg PO TWICE A DAY 07/24/14 Active Tamsulosin Hcl 0.4 Mg PO DAILY 07/24/14 Active Omeprazole 40 Mg PO DAILY 07/24/14 Active Prednisone 5 Mg PO DAILY 07/24/14 Active Docusate Sodium 100 Mg PO TWICE A DAY 07/24/14 Active Cholecalciferol 1,000 Unit PO DAILY 07/24/14 Active Aspirin 81 Mg PO DAILY 30 Qty 07/25/14 Active Social History Social History Problem Response Recorded Date/Time Alcohol Use Rarely Uses 07/24/2014 6:23pm Recreational Drug Use No 07/24/2014 6:23pm Recent Foreign Travel No 07/24/2014 6:23pm Recent Infectious Disease Exposure No 07/24/2014 6:23pm Hospitalization with Isolation Denies 07/25/2014 4:57pm Smoking Status Former Smoker 07/24/2014 6:18pm Do you dip or chew tobacco? No 07/24/2014 6:18pm Query Response Start Date Stop Date Smoking Status Former Smoker Hospital Discharge Instructions Patient Instructions Physician Instructions New, Converted or Re-Newed RX: Other (no new Rxes) Goal/Follow Up Appt: Norah Banks, 07/29/14 at 1100 Discharge Diet: ADA Diet Activity as Tolerated: Yes Care Plan Goal:: Norah Banks, 07/29/14 at 1100 Plan of Care Discharge Date 07/25/14 2:00pm Disposition 30 STILL A PATIENT Instructions/Education Provided ALTERED LEVEL OF CONSCIOUSNESS Cardiac Stress Test (ED) Prescriptions See Medications Section Referrals (Unspecified) Reason(s) for Referral: Return to outpt registration on Monday at 0700 for a chemical stress test. Please do not eat or drink after midnight on Monday night. No caffeine after 7pm on Monday night. Please bring a current list of home medications with you (Unspecified) Reason(s) for Referral: Follow up appt with Dr Perrin in 3 weeks,on August 15 at 11:40. Please call the office at [phone] if you have any questions. Functional Status Query Response Date Recorded Comprehension Ability Understands Concepts July 25, 2014 9:00am Allergies, Adverse Reactions, Alerts Allergen Type Severity Reaction Status Last Updated hydrocodone ([id number]) Allergy Unknown Active 07/24/14 Oxycodone Allergy Unknown Active 07/24/14 Acetaminophen Allergy Unknown Active 07/24/14 Immunizations No immunization records. Vital Signs Acute Vital Signs Vital Response Date/Time Temperature (Fahrenheit) 97.8 degrees F (97.6 - 99.5) Temperature (Calculated Celsius) 36.35035 degrees C (36.4 - 37.5) Temperature Source Temporal Pulse Rate (adult) 96 bpm (60 - 90) Respiratory Rate 22 bpm (12 - 24) O2 Sat by Pulse Oximetry 96 % (88 - 100) Blood Pressure 116/58 mm Hg Pain Pain Intensity 0 Height (Feet) 5 feet Height (Inches) 11.00 inches Height (Calculated Centimeters) 180.090419 cm Weight (Pounds) 193 pounds Weight (Calculated Grams) 23576.328 gm Weight (Calculated Kilograms) 87.630266 kilograms Calculated BMI 28.31 Results Laboratory Results Test Name Result Units Flags Reference Collection Date/Time Result Date/ Time Comments White Blood Count 6.5 10^3/uL 4.3-11.0 07/25/2014 5:41am 07/25/2014 6: 29am Red Blood Count 4.00 10^6/uL L 4.35-5.85 07/25/2014 5:41am 07/25/2014 6: 29am Hemoglobin 12.6 G/DL L 13.3-17.7 07/25/2014 5:41am 07/25/2014 6:29am Hematocrit 38 % L 40-54 07/25/2014 5:41am 07/25/2014 6:29am Mean Corpuscular Volume 94 FL 80-99 07/25/2014 5:41am 07/25/2014 6: 29am Mean Corpuscular Hemoglobin 32 PG 25-34 07/25/2014 5:41am 07/25/2014 6: 29am Mean Corpuscular Hemoglobin Concent 33 G/DL 32-36 07/25/2014 5:41am 01/2015 6:29am Red Cell Distribution Width 12.8 % 10.0-14.5 07/25/2014 5:41am 2014 6:29am Platelet Count 125 10^3/uL L 130-400 07/25/2014 5:41am 07/25/2014 6:29am Mean Platelet Volume 10.7 FL H 7.4-10.4 07/25/2014 5:41am 07/25/2014 6: 29am Neutrophils (%) (Auto) 63 % 42-75 07/24/2014 4:06pm 07/24/2014 4:22pm Lymphocytes (%) (Auto) 23 % 12-44 07/24/2014 4:06pm 07/24/2014 4:22pm Monocytes (%) (Auto) 10 % 0-12 07/24/2014 4:06pm 07/24/2014 4:22pm Eosinophils (%) (Auto) 3 % 0-10 07/24/2014 4:06pm 07/24/2014 4:22pm Basophils (%) (Auto) 1 % 0-10 07/24/2014 4:06pm 07/24/2014 4:22pm Neutrophils # (Auto) 4.5 X 10^3 1.8-7.8 07/24/2014 4:06pm 07/24/2014 4: 22pm Lymphocytes # (Auto) 1.7 X 10^3 1.0-4.0 07/24/2014 4:06pm 07/24/2014 4: 22pm Monocytes # (Auto) 0.7 X 10^3 0.0-1.0 07/24/2014 4:06pm 07/24/2014 4: 22pm Eosinophils # (Auto) 0.2 10^3/uL 0.0-0.3 07/24/2014 4:06pm 07/24/2014 4 :22pm Basophils # (Auto) 0.0 10^3/uL 0.0-0.1 07/24/2014 4:06pm 07/24/2014 4: 22pm Urine Color YELLOW 07/24/2014 5:58pm 07/24/2014 6:20pm Urine Clarity CLEAR 07/24/2014 5:58pm 07/24/2014 6:20pm Urine pH 6 5-9 07/24/2014 5:58pm 07/24/2014 6:20pm Urine Specific [place] 1.015 * 1.016-1.022 07/24/2014 5:58pm 2014 6:20pm Urine Protein 1+ * NEGATIVE 07/24/2014 5:58pm 07/24/2014 6:20pm Urine Glucose (UA) NEGATIVE NEGATIVE 07/24/2014 5:58pm 07/24/2014 6: 20pm Urine RBC (Auto) NEGATIVE NEGATIVE 07/24/2014 5:58pm 07/24/2014 6: 20pm Urine Ketones NEGATIVE NEGATIVE 07/24/2014 5:58pm 07/24/2014 6:20pm Urine Nitrite NEGATIVE NEGATIVE 07/24/2014 5:58pm 07/24/2014 6:20pm Urine Bilirubin NEGATIVE NEGATIVE 07/24/2014 5:58pm 07/24/2014 6: 20pm Urine Urobilinogen NORMAL MG/DL NORMAL 07/24/2014 5:58pm 07/24/2014 6: 20pm Urine Leukocyte Esterase NEGATIVE NEGATIVE 07/24/2014 5:58pm 2014 6:20pm Urine RBC RARE /HPF 07/24/2014 5:58pm 07/24/2014 6:20pm Urine WBC RARE /HPF 07/24/2014 5:58pm 07/24/2014 6:20pm Urine Bacteria FEW /HPF * 07/24/2014 5:58pm 07/24/2014 6:20pm Urine Squamous Epithelial Cells 0-2 /HPF 07/24/2014 5:58pm 2014 6:20pm Urine Crystals NONE /[facility] 07/24/2014 5:58pm 07/24/2014 6:20pm Urine Casts PRESENT /[facility] 07/24/2014 5:58pm 07/24/2014 6:20pm Urine Hyaline Casts RARE /[facility] 07/24/2014 5:58pm 07/24/2014 6:20pm Urine Mucus NEGATIVE /[facility] 07/24/2014 5:58pm 07/24/2014 6:20pm Urine Culture Indicated NO 07/24/2014 5:58pm 07/24/2014 6:20pm Sodium Level 144 MMOL/L 135-145 07/25/2014 5:41am 07/25/2014 6:40am Potassium Level 4.1 MMOL/L 3.6-5.0 07/25/2014 5:41am 07/25/2014 6:40am Chloride Level 110 MMOL/L H 98-107 07/25/2014 5:41am 07/25/2014 6:40am Carbon Dioxide Level 23 MMOL/L 21-32 07/25/2014 5:41am 07/25/2014 6: 40am Blood Urea Nitrogen 23 MG/DL H 7-18 07/25/2014 5:41am 07/25/2014 6:40am Creatinine 1.76 MG/DL H 0.60-1.30 07/25/2014 5:41am 07/25/2014 6:40am BUN/Creatinine Ratio 13 07/25/2014 5:41am 07/25/2014 6:40am Estimat Glomerular Filtration Rate 38 07/25/2014 5:41am 07/25/2014 6:40am GFR INTERPRETIVE DATA UNITS FOR ESTIMATED GFR (eGFR): mL/min/1.73 M2 REFERENCE RANGE FOR ESTIMATED GFR (eGFR) eGFR NORMAL eGFR >60 MODERATELY DECREASED eGFR 30-59 SEVERLY DECREASED eGFR 15-29 KIDNEY FAILURE <15 (OR DIALYSIS) Glucose Level 111 MG/DL H 70-105 07/25/2014 5:4107/25/2014 6:40am Calcium Level 8.9 MG/DL 8.5-10.1 07/25/2014 5:4107/25/2014 6:40am Magnesium Level 2.2 MG/DL 1.8-2.4 07/25/2014 5:4107/25/2014 6:40am Total Bilirubin 0.5 MG/DL 0.1-1.0 07/25/2014 5:4107/25/2014 6:40am Alkaline Phosphatase 30 U/L L 40-136 07/25/2014 5:4107/25/2014 6:40am Aspartate Amino Transf (AST/SGOT) 19 U/L 5-34 07/25/2014 5:412014 6:40am Alanine Aminotransferase (ALT/SGPT) 17 U/L 0-55 07/25/2014 5:4107/25 6:40am Total Creatine Kinase 107 U/L 30-200 07/24/2014 4:06pm 07/24/2014 4: 35pm Creatine Kinase MB 2.2 NG/ML <6.6 07/24/2014 4:06pm 07/24/2014 4:41pm Troponin I < 0.30 NG/ML <0.30 07/24/2014 4:06pm 07/24/2014 4:41pm B-Type Natriuretic Peptide 37.6 PG/ML <100.0 07/24/2014 4:pm 2014 4:49pm Total Protein 6.3 G/DL L 6.4-8.2 07/25/2014 5:4107/25/2014 6:40am Albumin 3.5 G/DL 3.2-4.5 07/25/2014 5:4107/25/2014 6:40am Lactic Acid Level 1.9 MMOL/L 0.5-2.2 07/24/2014 4:06pm 07/24/2014 4: 27pm Thyroid Stimulating Hormone (TSH) 1.56 UIU/ML 0.35-4.94 07/25/2014 5: 41am 07/25/2014 7:08am Procedures Procedure Status Date Provider(s) Tracing only of electrocardiogram completed 07/24/14 JOHNATHAN BLACK DO Tracing only of electrocardiogram completed 07/24/14 JACKIE PERRIN MD [facility] Color Doppler echocardiography completed 07/24/14 JACKIE PERRIN MD [facility] Encounters Encounter Location Date/Time Discharged Inpatient Via [facility] 07/24/14 3:30pm
--- OUTSIDE RECORDS SUMMARY | 2017-12-16 05:38 | XMS REPORT ---
Author KATLIN Pelletier Organization eClinicalWorks Address Unknown Phone Unavailable Care Team Providers Care Test And Research Reactor Operator Name Role Phone KATLIN MARADIAGA CP Unavailable Allergies No Known Allergies Problems Problem Type Condition Code Onset Dates Condition Status Assessment Encounter for dental examination Z01.20 Active Problem Encounter for dental examination Z01.20 Active Medications No Known Medications Procedures Procedure Coding System Code Date INTRAORL-PERIAPICAL 1 FILM 35811 CPT-4 D0220 Feb 02, 2016 INTRAORL-PERIAPICAL EA ADD FILM CPT-4 D0230 Feb 02, 2016 PERIODIC ORAL EXAMINATION CPT-4 D0120 Feb 02, 2016 Results No Known Results Summary Purpose eClinicalWorks Submission
--- OUTSIDE RECORDS SUMMARY | 2017-12-16 05:38 | XMS REPORT ---
Author Author RAYMOND DOOLEY [facility] Address Unknown Care Team Providers Care Etl Bi Developer Name Role Phone RAYMOND DOOLEY Unavailable PROBLEMS Type Condition ICD9-CM Code [id number] Code Onset Dates Condition Status SNOMED Code Problem Encounter for dental examination Z01.20 Active 466296892 Assessment Dental caries K02.9 Nov, Active [id number] ALLERGIES Substance Reaction Event Type Date Status Simvastatin Unknown Drug Allergy Nov, Active Percocet Unknown Drug Allergy Nov, Active Oxycodone HCl Unknown Drug Allergy Nov, Active Lisinopril Unknown Drug Allergy Nov, Active Hydrocodone-Acetaminophen Unknown Drug Allergy Nov, Active SOCIAL HISTORY No smoking Hx information available PLAN OF CARE VITAL SIGNS Blood pressure systolic 123 mmHg 2015-12-10 Blood pressure diastolic 81 mmHg 2015-12-10 MEDICATIONS Medication Instructions Dosage Frequency Start Date End Date Duration Status NovoLog Flexpen Active protonix 1 tab Active Exelon 9.5 MG/24HR Transdermal Once a day 1 patch to skin 24h Active Vitamin D Active Namenda 10 MG Orally Twice a day 1 tablet 12h Active MiraLax Active Symbicort 160-4.5 MCG/ACT Inhalation Twice a day 2 puffs 12h Active Proscar 5 MG Orally Once a day 1 tablet 24h Active Calcarb 600/D Active Flomax 0.4 MG Orally Once a day 1 capsule 30 minutes after the same meal each day 24h Active Norvasc 10 MG Orally Once a day 1 tablet 24h Active Zocor 20 MG Orally Once a day 1 tablet in the evening 24h Active Aplisol 5 UNIT/0.1ML Active DuoNeb Active NovoLIN R ReliOn Active Zoloft 50 MG Orally Once a day 1 tablet 24h Active Coreg 12.5 MG Active Melatonin Active Tylenol Active Trazodone HCl 100 MG Orally Once a day 1 tablet at bedtime 24h Active Prednisone 1 tab Active Folic Acid Active Ferrous Sulfate 325 (65 Fe) MG Orally Once a day 1 tablet 24h Active Colace 100 MG Orally Once a day 1 capsule as needed 24h Active RESULTS No Results PROCEDURES Procedure Date Ordered Related Diagnosis Body Site INTRAORL-PERIAPICAL 1 FILM [id number] Dec 10, 2015 EXTRAC ERUPTED TOOTH/EXPOSED ROOT Dec 10, 2015 IMMUNIZATIONS No Known Immunizations
--- OUTSIDE RECORDS SUMMARY | 2017-12-16 05:39 | XMS REPORT | Clinical Summary ---
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.9 Active Lorene Durbin UNSPECIFIED DISORDER RESULTING FROM IMPAIRED RENAL FUNCTION OSTEOARTHRITIS 715.90 Active Lorene Durbin OSTEOARTHROSIS, UNSPECIFIED WHETHER GENERALIZED OR LOCALIZED, UNSPECIFIED SITE HYPERTENSION 401.1 Active Lorene Durbin ESSENTIAL HYPERTENSION, BENIGN CAROTID ARTERY STENOSIS, 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 Active Lorene Durbin OCCLUSION AND STENOSIS OF CAROTID ARTERY WITHOUT MENTION OF CEREBRAL INFARCTION DIABETES MELLITUS, NONINSULIN DEPENDENT (NIDDM) 250.00 Active Lorene Durbin 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 Lorene Durbin 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 Lorene Durbin 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 MEMORY LOSS 780.93 Active Lorene Durbin MEMORY LOSS ANEMIA NOS 285.9 Active Lorene Durbin UNSPECIFIED ANEMIA DEPRESSION 311 Active Lorene Durbin DEPRESSIVE DISORDER, NOT ELSEWHERE CLASSIFIED HYPERCHOLESTEROLEMIA 272.0 Active Lorene Durbin PURE HYPERCHOLESTEROLEMIA Medication List Medication Instructions Start Date Stop Date Generic Name NDC Status Provider Patient Instruction ACETAMINOPHEN 325 MG TABS 2 PO Q 4hrs PRN pain or fever ACETAMINOPHEN 00551284311 Active Lorene Durbin BISACODYL LAXATIVE 10 MG SUPP 1 [place] QD PRN constipation BISACODYL 57456828763 Active Lorene Durbin CARVEDILOL 12.5 MG TABS 1 PO BID CARVEDILOL 17591710517 Active Elizabeth Dixon COLACE 100 MG CAPS 1 PO BID prevent constipation DOCUSATE SODIUM 56162930254 Active Elizabeth Dixon FERROUS SULFATE 325 (65 FE) MG TABS 1 PO BID FERROUS SULFATE 90631065314 Active Elizabeth Dixon FOLIC ACID 1 MG TABS 1 PO QD FOLIC ACID 81620233643 Active Elizabeth Dixon LACTULOSE SOLN 30 ML PO BID PRN Constipation LACTULOSE SOLN 32033576963 Active Lorene Durbin OMEPRAZOLE 40 MG CPDR 1 PO QD OMEPRAZOLE 15369010577 Active Elizabeth Dixon FLOMAX 0.4 MG CAPS 1 PO QD for urinary retention TAMSULOSIN HCL 73864288287 Active Elizabeth Dixon PAXIL 20 MG TAB 1 PO DAILY PAROXETINE HCL 89214613112 Active Elizabeth Dixon CALTRATE 600 PLUS-VIT D 600-200 MG-IU TABS 1 PO BID CALCIUM-VITAMIN D Active Elizabeth Dixon PREDNISONE 5 MG TABS 1 PO daily PREDNISONE 37992467831 Active Elizabeth Dixon BENADRYL 25 MG CAP 1 PO TID prn DIPHENHYDRAMINE HCL 89795842310 Active Lorene Durbin NAMENDA 10 MG TABS 1 PO BID MEMANTINE HCL 39704160602 Active Elizabeth Dixon FINASTERIDE 5 MG TABS 1 PO DAILY FINASTERIDE 08346706217 Active Lorene Meryl Levinener ZOCOR 20 MG TABS 1 PO DAILY SIMVASTATIN 71346538515 Active Elizabeth Dixon VITAMIN D 1000 UNIT TABS 1 PO Daily CHOLECALCIFEROL 54856591764 Active Lorene Meryl Durbin Immunizations Vaccine Administration Date Value Standard Description Influenza vaccine done influenza virus vaccine, unspecified formulation pneumococcal immunization administered Dr. Durbin pneumococcal polysaccharide vaccine, 23 valent pneumococcal immunization administered Disscused pneumococcal polysaccharide vaccine, 23 valent Vital Signs Date Name Value Unit Range Description blood pressure, diastolic 78 mm[Hg] BP leahy blood pressure, systolic 132 mm[Hg] BP sys pulse rate E&M 60 /min Heart rate respiratory rate E&M 14 /min Resp rate weight E&M 195 [lb_av] Weight Measured blood pressure, diastolic 60 mm[Hg] BP leahy blood pressure, systolic 110 mm[Hg] BP sys pulse rate E&M 88 /min Heart rate respiratory rate E&M 14 /min Resp rate weight E&M 192 [lb_av] Weight Measured blood pressure, diastolic 74 mm[Hg] BP leahy blood pressure, systolic 122 mm[Hg] BP sys pulse rate E&M 72 /min Heart rate respiratory rate E&M 14 /min Resp rate temperature E&M 97.9 [degF] Body temperature weight E&M 183 [lb_av] Weight Measured blood pressure, diastolic 90 mm[Hg] BP leahy blood pressure, systolic 144 mm[Hg] BP sys pulse rate E&M 78 /min Heart rate respiratory rate E&M 14 /min Resp rate weight E&M 188 [lb_av] Weight Measured Diagnostic Results Date Name Value Unit Range Description Clinical Lists Update: BMP - Chemistry anion gap, serum 12 urea nitrogen, blood 30 mg/dL potassium, serum 5.0 mmol/L calcium, serum 9.2 mg/dL creatinine, serum 2.0 mg/dL chloride, serum 103 mmol/L sodium, serum 137 mmol/L carbon dioxide, venous blood 27.0 mmol/L glucose, plasma fasting 143 mg/dL Estimated Glomerular Filtration Rate (calc) 36 mL/min/1.73m2 Clinical Lists Update: CBC,CMP - Chemistry carbon dioxide, venous blood 28.0 mmol/L chloride, serum 104 mmol/L calcium, serum 8.9 mg/dL urea nitrogen, blood 32 mg/dL alkaline phosphatase, serum 37 U/L creatinine, serum 1.8 mg/dL albumin, serum 3.6 g/dL protein, total, serum 6.1 g/dL aspartate aminotransferase (SGOT), serum 16 U/L alanine aminotransferase (SGPT), serum 15 U/L bilirubin, serum, total 0.3 mg/dL sodium, serum 141 mmol/L anion gap, serum 13 glucose, plasma fasting 93 mg/dL Estimated Glomerular Filtration Rate (calc) 40 mL/min/1.73m2 potassium, serum 4.4 mmol/L Clinical Lists Update: CBC,CMP - Hematology red blood cell distribution width 16.1 % mean corpuscular volume, RBC 97 fL leukocyte count, blood 5.7 10*3/mm3 erythrocyte (RBC) count 3.75 10*6/mm3 platelet count 135 10*3/mm3 hemoglobin, blood 11.2 g/dL hematocrit, blood 36 % Clinical Lists Update: CBC,CMP,FLP,HgA1c - Chemistry carbon dioxide, venous blood 30.0 mmol/L alkaline phosphatase, serum 39 U/L urea nitrogen, blood 27 mg/dL sodium, serum 139 mmol/L hemoglobin A1C, blood, as % of total hemoglobin 6.1 % anion gap, serum 10 creatinine, serum 1.9 mg/dL LDL cholesterol, serum 149 mg/dL cholesterol, serum 224 mg/dL potassium, serum 4.2 mmol/L HDL cholesterol, serum 41.0 mg/dL protein, total, serum 6.5 g/dL chloride, serum 103 mmol/L aspartate aminotransferase (SGOT), serum 18 U/L bilirubin, serum, total 0.5 mg/dL alanine aminotransferase (SGPT), serum 15 U/L calcium, serum 9.3 mg/dL albumin, serum 3.9 g/dL glucose, plasma fasting 100 mg/dL Estimated Glomerular Filtration Rate (calc) 38 mL/min/1.73m2 cholesterol/HDL ratio, serum 5.5 triglyceride, serum, fasting 169 mg/dL Clinical Lists Update: CBC,CMP,FLP,HgA1c - Hematology leukocyte count, blood 7.5 10*3/mm3 mean corpuscular volume, RBC 98 fL red blood cell distribution width 13.8 % platelet count 163 10*3/mm3 hemoglobin, blood 13.3 g/dL hematocrit, blood 44 % erythrocyte (RBC) count 4.45 10*6/mm3 Clinical Lists Update: CBC,CMP,FLP,TSH,HgA1c,Ferritin - Chemistry ferritin, serum 154.9 ng/mL HDL cholesterol, serum 40.0 mg/dL hemoglobin A1C, blood, as % of total hemoglobin 6.1 % thyroid stimulating hormone, serum 3.61 u[iU]/mL LDL cholesterol, serum 99 mg/dL potassium, serum 4.6 mmol/L protein, total, serum 6.5 g/dL aspartate aminotransferase (SGOT), serum 18 U/L alanine aminotransferase (SGPT), serum 18 U/L bilirubin, serum, total 0.4 mg/dL triglyceride, serum, fasting 129 mg/dL sodium, serum 141 mmol/L anion gap, serum 11 cholesterol/HDL ratio, serum 4.1 glucose, plasma fasting 115 mg/dL Estimated Glomerular Filtration Rate (calc) 38 mL/min/1.73m2 alkaline phosphatase, serum 34 U/L albumin, serum 3.9 g/dL urea nitrogen, blood 28 mg/dL calcium, serum 9.0 mg/dL chloride, serum 107 mmol/L cholesterol, serum 165 mg/dL carbon dioxide, venous blood 28.0 mmol/L creatinine, serum 1.9 mg/dL Clinical Lists Update: CBC,CMP,FLP,TSH,HgA1c,Ferritin - Hematology erythrocyte (RBC) count 4.10 10*6/mm3 red blood cell distribution width 13.8 % platelet count 132 10*3/mm3 leukocyte count, blood 7.5 10*3/mm3 hemoglobin, blood 12.6 g/dL mean corpuscular volume, RBC 97 fL hematocrit, blood 40 % Clinical Lists Update: CBC,CMP,FLP.UA - Chemistry alkaline phosphatase, serum 35 U/L albumin, serum 3.7 g/dL Estimated Glomerular Filtration Rate (calc) 9.3 mL/min/1.73m2 glucose, plasma fasting 102 mg/dL cholesterol/HDL ratio, serum 4.2 anion gap, serum 8 sodium, serum [...] 9.3 mg/dL urea nitrogen, blood 27 mg/dL Clinical Lists Update: CBC,CMP,FLP.UA - Hematology red blood cell distribution width 14.2 % hematocrit, blood 41 % hemoglobin, blood 12.9 g/dL platelet count 137 10*3/mm3 erythrocyte (RBC) count 4.10 10*6/mm3 leukocyte count, blood 7.9 10*3/mm3 mean corpuscular volume, RBC 99 fL Clinical Lists Update: CBC,CMP,FLP.UA - Urinalysis appearance, urine Clear Yellow urobilinogen, urine, semiquantitative (dipstick) 0.2 specific gravity, urine 1.015 pH, urine, semiquantitative 7.0 nitrite, urine, semiquantitative neg ketones, urine, by test strip neg bilirubin, urine neg glucose, urine, semiquantitative neg WBC urine on microscopy none {Cells}/[HPF] RBC urine by microscopy none protein, urine, semiquantitative (dipstick) neg hyaline casts, urine none /[LPF] epithelial cells, urine 0-5 /[LPF] mucus on urinalysis none blood in urine (hemoglobin) by dipstick trace bacteria, urine microscopy none
--- OUTSIDE RECORDS SUMMARY | 2017-12-16 05:39 | XMS REPORT | Clinical Summary ---
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 Lorene KIDDGENER'S GRANULOMATOSIS NEPHROTIC SYNDROME W/LESION MEMBRANOUS GLN 581.1 [...] Q 4hrs PRN pain or fever ACETAMINOPHEN 41504502991 Active Lorene Durbin BISACODYL LAXATIVE 10 MG SUPP 1 [place] QD PRN constipation BISACODYL 00178872475 Active Lorene Durbin CARVEDILOL 12.5 MG TABS 1 PO BID CARVEDILOL 33768951877 Active Elizabeth Dixon COLACE 100 MG CAPS 1 PO BID prevent constipation DOCUSATE SODIUM 86312511105 Active Elizabeth Dixon FERROUS SULFATE 325 (65 FE) MG TABS 1 PO BID FERROUS SULFATE 87255633945 Active Elizabeth Dixon FOLIC ACID 1 MG TABS 1 PO QD FOLIC ACID 65238987906 Active Elizabeth Dixon LACTULOSE SOLN 30 ML PO BID PRN Constipation LACTULOSE SOLN 47351211372 Active Lorene Durbin OMEPRAZOLE 40 MG CPDR 1 PO QD OMEPRAZOLE 02752444192 Active Elizabeth Dixon FLOMAX 0.4 MG CAPS 1 PO QD for urinary retention TAMSULOSIN HCL 49171457843 Active Elizabeth Dixon PAXIL 20 MG TAB 1 PO DAILY PAROXETINE HCL 80994075454 Active Elizabeth Dixon CALTRATE 600 PLUS-VIT D 600-200 MG-IU TABS 1 PO BID CALCIUM-VITAMIN D Active Elizabeth Dixon PREDNISONE 5 MG TABS 1 PO daily PREDNISONE 94600919446 Active Elizabeth Dixon BENADRYL 25 MG CAP 1 PO TID prn DIPHENHYDRAMINE HCL 58651058312 Active Lorene Durbin NAMENDA 10 MG TABS 1 PO BID MEMANTINE HCL 43641144409 Active Elizabeth Dixon FINASTERIDE 5 MG TABS 1 PO DAILY FINASTERIDE 34927719468 Active Lorenedada Durbin ZOCOR 20 MG TABS 1 PO DAILY SIMVASTATIN 66429431447 Active Elizabeth Dixon VITAMIN D 1000 UNIT TABS 1 PO Daily CHOLECALCIFEROL 32619840194 Active Lorene Durbin Immunizations Vaccine Administration Date Value Standard Description Influenza vaccine done influenza virus vaccine, unspecified formulation Influenza vaccine done influenza virus vaccine, unspecified formulation pneumococcal immunization administered Dr. Durbin pneumococcal polysaccharide vaccine, 23 valent pneumococcal immunization administered Disscused pneumococcal polysaccharide vaccine, 23 valent Vital Signs Date Name Value Unit Range Description blood pressure, diastolic 74 mm[Hg] BP leahy blood pressure, systolic 136 mm[Hg] BP sys pulse rate E&M 78 /min Heart rate respiratory rate E&M 14 /min Resp rate weight E&M 197 [lb_av] Weight Measured blood pressure, diastolic 78 mm[Hg] BP leahy [...] Value Unit Range Description Clinical Lists Update: [facility] - Chemistry Estimated Glomerular Filtration Rate (calc) 36 mL/min/1.73m2 calcium, serum 9.2 mg/dL sodium, serum 137 mmol/L chloride, serum 103 mmol/L potassium, serum 5.0 mmol/L carbon dioxide, venous blood 27.0 mmol/L urea nitrogen, blood 30 mg/dL creatinine, serum 2.0 mg/dL anion gap, serum 12 glucose, plasma fasting 143 mg/dL Clinical Lists Update: CBC,[facility] - Chemistry chloride, serum 104 mmol/L calcium, serum 8.9 mg/dL urea nitrogen, blood 32 mg/dL creatinine, serum 1.8 mg/dL potassium, serum 4.4 mmol/L protein, total, serum 6.1 g/dL aspartate aminotransferase (SGOT), serum 16 U/L alanine aminotransferase (SGPT), serum 15 U/L bilirubin, serum, total 0.3 mg/dL sodium, serum 141 mmol/L anion gap, serum 13 glucose, plasma fasting 93 mg/dL Estimated Glomerular Filtration Rate (calc) 40 mL/min/1.73m2 carbon dioxide, venous blood 28.0 mmol/L albumin, serum 3.6 g/dL alkaline phosphatase, serum 37 U/L Clinical Lists Update: CBC,[facility] - Hematology red blood cell distribution width 16.1 % mean corpuscular volume, RBC 97 fL leukocyte count, blood 5.7 10*3/mm3 erythrocyte (RBC) count 3.75 10*6/mm3 hemoglobin, blood 11.2 g/dL platelet count 135 10*3/mm3 hematocrit, blood 36 % Clinical Lists Update: CBC,CMP,FLP,HgA1c - Chemistry Estimated Glomerular Filtration Rate (calc) 38 mL/min/1.73m2 glucose, plasma fasting 100 mg/dL cholesterol/HDL ratio, serum 5.5 anion gap, serum 10 sodium, serum 139 mmol/L triglyceride, serum, fasting 169 mg/dL bilirubin, serum, total 0.5 mg/dL alanine aminotransferase (SGPT), serum 15 U/L aspartate aminotransferase (SGOT), serum 18 U/L protein, total, serum 6.5 g/dL potassium, serum 4.2 mmol/L LDL cholesterol, serum 149 mg/dL hemoglobin A1C, blood, as % of total hemoglobin 6.1 % HDL cholesterol, serum 41.0 mg/dL creatinine, serum 1.9 mg/dL carbon dioxide, venous blood 30.0 mmol/L cholesterol, serum 224 mg/dL chloride, serum 103 mmol/L calcium, serum 9.3 mg/dL urea nitrogen, blood 27 mg/dL alkaline phosphatase, serum 39 U/L albumin, serum 3.9 g/dL Clinical Lists Update: CBC,CMP,FLP,HgA1c - Hematology hematocrit, blood 44 % red blood cell distribution width 13.8 % mean corpuscular volume, RBC 98 fL hemoglobin, blood 13.3 g/dL erythrocyte (RBC) count 4.45 10*6/mm3 platelet count 163 10*3/mm3 leukocyte count, blood 7.5 10*3/mm3 Clinical Lists Update: CBC,CMP,FLP,TSH,HgA1c,Ferritin - Chemistry Estimated Glomerular Filtration Rate (calc) 38 mL/min/1.73m2 glucose, plasma fasting 115 mg/dL cholesterol/HDL ratio, serum 4.1 anion gap, serum 11 sodium, serum [...] g/dL Clinical Lists Update: CBC,CMP,FLP,TSH,HgA1c,Ferritin - Hematology hematocrit, blood 40 % hemoglobin, blood 12.6 g/dL platelet count 132 10*3/mm3 erythrocyte (RBC) count 4.10 10*6/mm3 leukocyte count, blood 7.5 10*3/mm3 mean corpuscular volume, RBC 97 fL red blood cell distribution width 13.8 % Clinical Lists Update: CBC,CMP,FLP.UA - Chemistry alanine aminotransferase (SGPT), serum 19 U/L albumin, serum 3.7 g/dL alkaline phosphatase, serum 35 U/L urea nitrogen, blood 27 mg/dL calcium, serum 9.3 mg/dL chloride, serum 106 mmol/L cholesterol, serum 167 mg/dL carbon dioxide, venous blood 31.0 mmol/L creatinine, serum 1.9 mg/dL bilirubin, serum, direct 0.0 mg/dL HDL cholesterol, serum 40.0 mg/dL LDL cholesterol, serum 101 mg/dL potassium, serum 4.7 mmol/L protein, total, serum 6.2 g/dL aspartate aminotransferase (SGOT), serum 19 U/L bilirubin, serum, total 0.3 mg/dL triglyceride, serum, fasting 131 mg/dL sodium, serum 140 mmol/L anion gap, serum 8 cholesterol/HDL ratio, serum 4.2 glucose, plasma fasting 102 mg/dL Estimated Glomerular Filtration Rate (calc) 9.3 mL/min/1.73m2 Clinical Lists Update: CBC,CMP,FLP.UA - Hematology hematocrit, blood 41 % red blood cell distribution width 14.2 % mean corpuscular volume, RBC 99 fL leukocyte count, blood 7.9 10*3/mm3 erythrocyte (RBC) count 4.10 10*6/mm3 hemoglobin, blood 12.9 g/dL platelet count 137 10*3/mm3 Clinical Lists Update: CBC,CMP,FLP.UA - Urinalysis urobilinogen, urine, semiquantitative (dipstick) 0.2 bacteria, urine microscopy none appearance, urine Clear Yellow hyaline casts, urine none /[LPF] WBC urine on microscopy none {Cells}/[HPF] protein, urine, semiquantitative (dipstick) neg glucose, urine, semiquantitative neg bilirubin, urine neg ketones, urine, by test strip neg mucus on urinalysis none specific gravity, urine 1.015 pH, urine, semiquantitative 7.0 blood in urine (hemoglobin) by dipstick trace nitrite, urine, semiquantitative neg RBC urine by microscopy none epithelial cells, urine 0-5 /[LPF] Office Visit: Dr Durbin's Check Up: Established Patient Visit - Chemistry Estimated Glomerular Filtration Rate (calc) 38 mL/min/1.73m2 glucose, plasma fasting 129 mg/dL albumin, serum 4.2 g/dL alkaline phosphatase, serum 36 U/L urea nitrogen, blood 30 mg/dL calcium, serum 9.5 mg/dL chloride, serum 102 mmol/L cholesterol, serum 177 mg/dL anion gap, serum 12 sodium, serum 139 mmol/L triglyceride, serum, fasting 156 mg/dL bilirubin, serum, total 0.4 mg/dL alanine aminotransferase (SGPT), serum 22 U/L aspartate aminotransferase (SGOT), serum 21 U/L protein, total, serum 7.0 g/dL potassium, serum 4.7 mmol/L hemoglobin A1C, blood, as % of total hemoglobin 6.2 % ferritin, serum 195.9 ng/mL creatinine, serum 1.9 mg/dL carbon dioxide, venous blood 30.0 mmol/L Office Visit: Dr Durbin's Check Up: Established Patient Visit - Hematology hemoglobin, blood 13.5 g/dL platelet count 149 10*3/mm3 erythrocyte (RBC) count 4.36 10*6/mm3 leukocyte count, blood 11.1 10*3/mm3 mean corpuscular volume, RBC 102 fL red blood cell distribution width 15.0 % hematocrit, blood 44 %
--- OUTSIDE RECORDS SUMMARY | 2017-12-16 05:40 | XMS REPORT | Clinical Summary ---
Author Author vane hall DO, [place] [address] Phone Unavailable Allergies, Adverse Reactions, Alerts Allergy [...] Q 4hrs PRN pain or fever ACETAMINOPHEN 39481866812 Active Lorene Durbin BISACODYL LAXATIVE 10 MG SUPP 1 [place] QD PRN constipation BISACODYL 12455348573 Active Lorene Durbin CARVEDILOL 12.5 MG TABS 1 PO BID CARVEDILOL 44542918782 Active Elizabeth Dixon COLACE 100 MG CAPS 1 PO BID prevent constipation DOCUSATE SODIUM 46908373019 Active Elizabeth Dixon FERROUS SULFATE 325 (65 FE) MG TABS 1 PO BID FERROUS SULFATE 13348747874 Active Elizabeth Dixon FOLIC ACID 1 MG TABS 1 PO QD FOLIC ACID 17673545315 Active Elizabeth Dixon LACTULOSE SOLN 30 ML PO BID PRN Constipation LACTULOSE SOLN 09875645150 Active Lorene Durbin OMEPRAZOLE 40 MG CPDR 1 PO QD OMEPRAZOLE 15075167370 Active Elizabeth Dixon FLOMAX 0.4 MG CAPS 1 PO QD for urinary retention TAMSULOSIN HCL 44365854706 Active Elizabeth Dixon PAXIL 20 MG TAB 1 PO DAILY PAROXETINE HCL 95450621799 Active Elizabeth Dixon CALTRATE 600 PLUS-VIT D 600-200 MG-IU TABS 1 PO BID CALCIUM-VITAMIN D Active Elizabeth Dixon PREDNISONE 5 MG TABS 1 PO daily PREDNISONE 41459733299 Active Elizabeth Dixon BENADRYL 25 MG CAP 1 PO TID prn DIPHENHYDRAMINE HCL 36486892595 Active Lorene Durbin NAMENDA 10 MG TABS 1 PO BID MEMANTINE HCL 55127575020 Active Elizabeth Dixon FINASTERIDE 5 MG TABS 1 PO DAILY FINASTERIDE 59572407553 Active Lorene Meryl Levinener ZOCOR 20 MG TABS 1 PO DAILY SIMVASTATIN 89143974989 Active Elizabeth Dixon VITAMIN D 1000 UNIT TABS 1 PO Daily CHOLECALCIFEROL 98007170774 Active Lorene Meryl Durbin Immunizations Vaccine Administration [...] Rate (calc) 36 mL/min/1.73m2 Clinical Lists Update: CBC,[facility] - Chemistry carbon dioxide, venous blood 28.0 [...]
--- OUTSIDE RECORDS SUMMARY | 2017-12-16 05:40 | XMS REPORT | Clinical Summary ---
Author Author vane hall DO, [place] [address] Phone Unavailable Allergies, Adverse Reactions, Alerts Allergy [...] LOCALIZED, UNSPECIFIED SITE HYPERTENSION 401.1 Active Lorene Dubrin ESSENTIAL HYPERTENSION, BENIGN CAROTID ARTERY STENOSIS, LEFT [...] Q 4hrs PRN pain or fever ACETAMINOPHEN 04018572281 Active Lorene Durbin BISACODYL LAXATIVE 10 MG SUPP 1 [place] QD PRN constipation BISACODYL 79190217055 Active Lorene Durbin CARVEDILOL 12.5 MG TABS 1 PO BID CARVEDILOL 92257145040 Active Elizabeth Dixon COLACE 100 MG CAPS 1 PO BID prevent constipation DOCUSATE SODIUM 80268806017 Active Elizabeth Dixon FERROUS SULFATE 325 (65 FE) MG TABS 1 PO BID FERROUS SULFATE 19752292184 Active Elizabeth Dixon FOLIC ACID 1 MG TABS 1 PO QD FOLIC ACID 68367669928 Active Elizabeth Dixon LACTULOSE SOLN 30 ML PO BID PRN Constipation LACTULOSE SOLN 71687443244 Active Lorene Durbin OMEPRAZOLE 40 MG CPDR 1 PO QD OMEPRAZOLE 29906565173 Active Elizabeth Dixon FLOMAX 0.4 MG CAPS 1 PO QD for urinary retention TAMSULOSIN HCL 03815683174 Active Elizabeth Dixon PAXIL 20 MG TAB 1 PO DAILY PAROXETINE HCL 59774982101 Active Elizabeth Dixon CALTRATE 600 PLUS-VIT D 600-200 MG-IU TABS 1 PO BID CALCIUM-VITAMIN D Active Elizabeth iDxon PREDNISONE 5 MG TABS 1 PO daily PREDNISONE 53756267474 Active Elizabeth Dixon BENADRYL 25 MG CAP 1 PO TID prn DIPHENHYDRAMINE HCL 16550117023 Active Lorene Durbin NAMENDA 10 MG TABS 1 PO BID MEMANTINE HCL 33727643611 Active Elizabeth Dixon FINASTERIDE 5 MG TABS 1 PO DAILY FINASTERIDE 36251977222 Active Lorene Meryl Levinener ZOCOR 20 MG TABS 1 PO DAILY SIMVASTATIN 56377191565 Active Elizabeth Dixon VITAMIN D 1000 UNIT TABS 1 PO Daily CHOLECALCIFEROL 22407037511 Active Lorene Meryl Durbin Immunizations Vaccine Administration [...]
--- OUTSIDE RECORDS SUMMARY | 2017-12-16 05:41 | XMS REPORT | Clinical Summary ---
Author Author vane hall DO, [place] [address] Phone Unavailable Allergies, Adverse Reactions, Alerts Allergy [...] Q 4hrs PRN pain or fever ACETAMINOPHEN [id number] Active Lorene Durbin BISACODYL LAXATIVE 10 MG SUPP 1 KS QD PRN constipation BISACODYL 07252016391 Active Lorene Durbin CARVEDILOL 12.5 MG TABS 1 PO BID CARVEDILOL 16709945267 Active Elizabeth Dixon COLACE 100 MG CAPS 1 PO BID prevent constipation DOCUSATE SODIUM 11524291765 Active Elizabeth Dixon FERROUS SULFATE 325 (65 FE) MG TABS 1 PO BID FERROUS SULFATE 89371866334 Active Elizabeth Dixon FOLIC ACID 1 MG TABS 1 PO QD FOLIC ACID 12603736582 Active Elizabeth Dixon LACTULOSE SOLN 30 ML PO BID PRN Constipation LACTULOSE SOLN 98086834145 Active Lorene Durbin OMEPRAZOLE 40 MG CPDR 1 PO QD OMEPRAZOLE 30971141489 Active Elizabeth Dixon FLOMAX 0.4 MG CAPS 1 PO QD for urinary retention TAMSULOSIN HCL 68270542548 Active Elizabeth Dixon PAXIL 20 MG TAB 1 PO DAILY PAROXETINE HCL 92720587159 Active Elizabeth Dixon CALTRATE 600 PLUS-VIT D 600-200 MG-IU TABS 1 PO BID CALCIUM-VITAMIN D Active Elizabeth Dixon PREDNISONE 5 MG TABS 1 PO daily PREDNISONE 37075065550 Active Elizabeth Dixon BENADRYL 25 MG CAP 1 PO TID prn DIPHENHYDRAMINE HCL 86841993315 Active Lorene Durbin NAMENDA 10 MG TABS 1 PO BID MEMANTINE HCL 28579033430 Active Elizabeth Dixon FINASTERIDE 5 MG TABS 1 PO DAILY FINASTERIDE 75963892839 Active Lorene Meryl Levinener ZOCOR 20 MG TABS 1 PO DAILY SIMVASTATIN 86949354656 Active Elizabeth Dixon VITAMIN D 1000 UNIT TABS 1 PO Daily CHOLECALCIFEROL 28802027711 Active Lorene Meryl Durbin Immunizations Vaccine Administration [...]
--- OUTSIDE RECORDS SUMMARY | 2017-12-16 05:41 | XMS REPORT | Clinical Summary ---
Author Author vane hall DO, [place] [address] Phone Unavailable Allergies, Adverse Reactions, Alerts Allergy [...] Q 4hrs PRN pain or fever ACETAMINOPHEN 29327971421 Active Lorene Durbin BISACODYL LAXATIVE 10 MG SUPP 1 GA QD PRN constipation BISACODYL 82898223767 Active Lorene Durbin CARVEDILOL 12.5 MG TABS 1 PO BID CARVEDILOL 14539994449 Active Elizabeth Dixon COLACE 100 MG CAPS 1 PO BID prevent constipation DOCUSATE SODIUM 07971537506 Active Elizabeth Dixon FERROUS SULFATE 325 (65 FE) MG TABS 1 PO BID FERROUS SULFATE 49607740324 Active Elizabeth Dixon FOLIC ACID 1 MG TABS 1 PO QD FOLIC ACID 60784405314 Active Elizabeth Dixon LACTULOSE SOLN 30 ML PO BID PRN Constipation LACTULOSE SOLN 44301269592 Active Lorene Durbin OMEPRAZOLE 40 MG CPDR 1 PO QD OMEPRAZOLE 20410202615 Active Elizabeth Dixon FLOMAX 0.4 MG CAPS 1 PO QD for urinary retention TAMSULOSIN HCL 45911978279 Active Elizabeth Dixon PAXIL 20 MG TAB 1 PO DAILY PAROXETINE HCL 77162805367 Active Elizabeth Dixon CALTRATE 600 PLUS-VIT D 600-200 MG-IU TABS 1 PO BID CALCIUM-VITAMIN D Active Elizabeth Dixon PREDNISONE 5 MG TABS 1 PO daily PREDNISONE 27829454573 Active Elizabeth Dixon BENADRYL 25 MG CAP 1 PO TID prn DIPHENHYDRAMINE HCL 77606139364 Active Lorene Durbin NAMENDA 10 MG TABS 1 PO BID MEMANTINE HCL 36683488403 Active Elizabeth Dixon FINASTERIDE 5 MG TABS 1 PO DAILY FINASTERIDE 07209138076 Active Lorene Meryl Levinener ZOCOR 20 MG TABS 1 PO DAILY SIMVASTATIN 76762400196 Active Elizabeth Dixon VITAMIN D 1000 UNIT TABS 1 PO Daily CHOLECALCIFEROL 13585547732 Active Lorene Meryl Durbin Immunizations Vaccine Administration [...]
--- OUTSIDE RECORDS SUMMARY | 2017-12-16 05:42 | XMS REPORT | Clinical Summary ---
Author Author vane hall DO, [place] [address] Phone Unavailable Allergies, Adverse Reactions, Alerts Allergy [...] Q 4hrs PRN pain or fever ACETAMINOPHEN 80346856334 Active Lorene Durbin BISACODYL LAXATIVE 10 MG SUPP 1 RI QD PRN constipation BISACODYL 99557270105 Active Lorene Durbin CARVEDILOL 12.5 MG TABS 1 PO BID CARVEDILOL 35865266243 Active Elizabeth Dixon COLACE 100 MG CAPS 1 PO BID prevent constipation DOCUSATE SODIUM 72443739118 Active Elizabeth Dixon FERROUS SULFATE 325 (65 FE) MG TABS 1 PO BID FERROUS SULFATE 56719402801 Active Elizabeth Dixon FOLIC ACID 1 MG TABS 1 PO QD FOLIC ACID 74519219973 Active Elizabeth Dixon LACTULOSE SOLN 30 ML PO BID PRN Constipation LACTULOSE SOLN 60285762319 Active Lorene Durbin OMEPRAZOLE 40 MG CPDR 1 PO QD OMEPRAZOLE 90841397966 Active Elizabeth Dixon FLOMAX 0.4 MG CAPS 1 PO QD for urinary retention TAMSULOSIN HCL 11520750096 Active Elizabeth Dixon PAXIL 20 MG TAB 1 PO DAILY PAROXETINE HCL 73764422573 Active Elizabeth Dixon CALTRATE 600 PLUS-VIT D 600-200 MG-IU TABS 1 PO BID CALCIUM-VITAMIN D Active Elizabeth Dixon PREDNISONE 5 MG TABS 1 PO daily PREDNISONE 92620122398 Active Elizabeth Dixon BENADRYL 25 MG CAP 1 PO TID prn DIPHENHYDRAMINE HCL 91295087172 Active Lorene Durbin NAMENDA 10 MG TABS 1 PO BID MEMANTINE HCL 24580664709 Active Elizabeth Dixon FINASTERIDE 5 MG TABS 1 PO DAILY FINASTERIDE 63078263779 Active Lorene Meyrl Levinener ZOCOR 20 MG TABS 1 PO DAILY SIMVASTATIN 67486675966 Active Elizabeth Dixon VITAMIN D 1000 UNIT TABS 1 PO Daily CHOLECALCIFEROL 02274593714 Active Lorene Meryl Durbin Immunizations Vaccine Administration [...] Rate (calc) 36 mL/min/1.73m2 Clinical Lists Update: CBC,[facility] - Chemistry carbon dioxide, venous blood 28.0 [...]
--- OUTSIDE RECORDS SUMMARY | 2017-12-16 05:42 | XMS REPORT | Continuity of Care Document ---
Author Author [facility] Organization [facility] Address Unknown Phone Unavailable Allergies Active Description Code Type Severity Reaction Onset Reported/Identified Relationship to Patient Clinical Status Yes No Known Drug Allergies [id number] Drug Allergy Unknown N/A 07/28/2010 Yes acetaminophen [id number] Drug Allergy Unknown N/A 07/24/2014 Yes hydrocodone [id number] Drug Allergy Unknown N/A 07/24/2014 Yes oxycodone [id number] Drug Allergy Unknown N/A 07/24/2014 Yes acetaminophen [id number] Drug Allergy Unknown N/A 07/24/2014 Yes hydrocodone [id number] Drug Allergy Unknown N/A 07/24/2014 Yes oxycodone [id number] Drug Allergy Unknown N/A 07/24/2014 Medications There is no data. Problems Date Dx Coded Attending Type Code Diagnosis Diagnosed By 07/28/2010 Ot 922.2 07/28/2010 Ot 959.12 07/28/2010 Ot E000.8 07/28/2010 Ot E849.0 07/28/2010 Ot E917.9 10/12/2013 JERONIMO MAYBERRY AIR SUPPORT CONTROL OFFICER Ot 883.0 OPEN WOUND OF FINGER 10/12/2013 JERONIMO MAYBERRY AIR SUPPORT CONTROL OFFICER Ot E029.9 OTHER ACTIVITY 10/12/2013 JERONIMO MAYBERRY AIR SUPPORT CONTROL OFFICER Ot E849.0 ACCIDENT IN HOME 10/12/2013 JERONIMO MAYBERRY AIR SUPPORT CONTROL OFFICER Ot E920.8 ACC-CUTTING INSTRUM NEC 10/12/2013 JERONIMO MAYBERRY AIR SUPPORT CONTROL OFFICER Ot V06.1 [id number], COMBINED [ 10/21/2013 CALEB ROYAL, JAHAIRA Jones Ot V58.32 ENCOUNTER FOR REMOVAL OF SUTURES 07/24/2014 Ot 787.24 07/24/2014 Ot 530.81 07/24/2014 Ot 562.10 07/24/2014 Ot V76.51 07/24/2014 Ot 780.93 07/25/2014 Ot 250.00 DIAB KRISTEN WO COMPL, TYPE II OR UNSPEC TY 07/25/2014 Ot 272.0 PURE HYPERCHOLESTEROLEM 07/25/2014 Ot 272.4 HYPERLIPIDEMIA NEC/NOS 07/25/2014 Ot 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, UNSPECIFIED, WITH BEHAVIORAL D 07/25/2014 Ot 300.00 ANXIETY STATE NOS 07/25/2014 Ot 311 DEPRESSIVE DISORDER NEC 07/25/2014 Ot 403.90 HYPTNSV CHR KID DIS, UNSPEC, W CHR KD ST 07/25/2014 Ot 443.9 PERIPH VASCULAR DIS NOS 07/25/2014 Ot 496 CHR AIRWAY OBSTRUCT NEC 07/25/2014 Ot 584.9 ACUTE RENAL FAILURE, UNSPECIFIED 07/25/2014 Ot 585.4 CHRONIC KIDNEY DISEASE, STAGE IV (SEVERE 07/25/2014 Ot 724.5 BACKACHE NOS 07/25/2014 Ot 780.93 MEMORY LOSS 07/25/2014 Ot V15.82 HISTORY OF TOBACCO USE 07/25/2014 Ot 787.24 07/25/2014 Ot 530.81 07/25/2014 Ot 562.10 07/25/2014 Ot V76.51 07/25/2014 Ot 780.93 07/28/2014 Ot 787.24 07/28/2014 Ot 530.81 07/28/2014 Ot 562.10 07/28/2014 Ot V76.51 07/28/2014 Ot 780.93 09/13/2014 Ot 250.00 09/13/2014 Ot 433.10 09/13/2014 Ot 794.31 09/14/2014 Ot 250.00 09/14/2014 Ot 433.10 09/14/2014 Ot 794.31 04/24/2015 Ot 787.24 04/24/2015 Ot 530.81 04/24/2015 Ot 562.10 04/24/2015 Ot V76.51 04/24/2015 Ot 780.93 04/24/2015 Ot 250.00 04/24/2015 Ot 433.10 04/24/2015 Ot 794.31 05/08/2015 GLORIA ROYAL, BAY Santana Ot E11.621 TYPE 2 DIABETES MELLITUS WITH FOOT ULCER 05/08/2015 GLORIA ROYAL, BAY Santana Ot G30.9 ALZHEIMER'S DISEASE, UNSPECIFIED 05/08/2015 GLORIA ROYLA, BAY Santana Ot L97.522 NON-PRS CHRONIC ULCER OTH PRT LEFT FOOT 06/03/2015 GABRIELLA ROYAL, ROSHNI Ray Ot D64.9 06/03/2015 GABRIELLA ROYAL, ROSHNI Ray Ot I12.9 06/03/2015 GABRIELLA ROYAL, ROSHNI Ray Ot N18.3 06/12/2015 GABRIELLA ROYAL, ROSHNI Ray Ot D64.9 06/12/2015 GABRIELLA ROYAL, ROSHNI Ray Ot I12.9 06/12/2015 GABRIELLA ROYAL, ROSHNI Ray Ot N18.3 05/23/2016 Ot 787.24 DYSPHAGIA, PHARYNGOESOPHAGEAL PHASE 05/23/2016 Ot 530.81 ESOPHAGEAL REFLUX 05/23/2016 Ot 562.10 DIVERTICULOSIS COLON (W/O MENT OF HEMORR 05/23/2016 Ot V76.51 SCREEN MAL NEOP-COLON 05/23/2016 Ot 780.93 MEMORY LOSS 05/23/2016 Ot 250.00 DIAB KRISTEN WO COMPL, TYPE II OR UNSPEC TY 05/23/2016 Ot 433.10 CAROTID ARTERY OCCLUSION W O CEREBRAL IN 05/23/2016 Ot 794.31 ABNORM ELECTROCARDIOGRAM 05/23/2016 JENY QUIROZ MD Ot D64.9 ANEMIA, UNSPECIFIED 05/23/2016 GABRIELLA ROYAL, ROSHNI Ray Ot I12.9 HYPERTENSIVE CHRONIC KIDNEY DISEASE W ST 05/23/2016 JENY QUIROZ MD Ot N18.3 CHRONIC KIDNEY DISEASE, STAGE 3 (MODERAT 05/23/2016 Ot 787.24 DYSPHAGIA, PHARYNGOESOPHAGEAL PHASE 05/23/2016 Ot 530.81 ESOPHAGEAL REFLUX 05/23/2016 Ot 562.10 DIVERTICULOSIS COLON (W/O MENT OF HEMORR 05/23/2016 Ot V76.51 SCREEN MAL NEOP-COLON 05/23/2016 Ot 780.93 MEMORY LOSS 05/23/2016 Ot 250.00 DIAB KRISTEN WO COMPL, TYPE II OR UNSPEC TY 05/23/2016 Ot 433.10 CAROTID ARTERY OCCLUSION W O CEREBRAL IN 05/23/2016 Ot 794.31 ABNORM ELECTROCARDIOGRAM 05/23/2016 JENY QUIROZ MD Ot D64.9 ANEMIA, UNSPECIFIED 05/23/2016 JENY QUIROZ MD Ot I12.9 HYPERTENSIVE CHRONIC KIDNEY DISEASE W ST 05/23/2016 JENY QUIROZ MD Ot N18.3 CHRONIC KIDNEY DISEASE, STAGE 3 (MODERAT 05/29/2016 Ot 787.24 DYSPHAGIA, PHARYNGOESOPHAGEAL PHASE 05/29/2016 Ot 530.81 ESOPHAGEAL REFLUX 05/29/2016 Ot 562.10 DIVERTICULOSIS COLON (W/O MENT OF HEMORR 05/29/2016 Ot V76.51 SCREEN MAL NEOP-COLON 05/29/2016 Ot 780.93 MEMORY LOSS 05/29/2016 Ot 250.00 DIAB KRISTEN WO COMPL, TYPE II OR UNSPEC TY 05/29/2016 Ot 433.10 CAROTID ARTERY OCCLUSION W O CEREBRAL IN 05/29/2016 Ot 794.31 ABNORM ELECTROCARDIOGRAM 05/29/2016 JENY QUIROZ MD Ot D64.9 ANEMIA, UNSPECIFIED 05/29/2016 JENY QUIROZ MD Ot I12.9 HYPERTENSIVE CHRONIC KIDNEY DISEASE W ST 05/29/2016 JENY QUIROZ MD Ot N18.3 CHRONIC KIDNEY DISEASE, STAGE 3 (MODERAT 05/29/2016 LAUREN LOPEZ APRN Ot R05 COUGH 05/29/2016 LAUREN LOPEZ APRN Ot R50.9 FEVER, UNSPECIFIED 05/29/2016 JAHAIRA ELLIS MD Ot S00.01XA ABRASION OF SCALP, INITIAL ENCOUNTER 05/29/2016 JAHAIRA ELLIS MD, Ot S00.531A CONTUSION OF LIP, INITIAL ENCOUNTER 05/29/2016 JAHAIRA ELLIS MD Ot S09.90XA UNSPECIFIED INJURY OF HEAD, INITIAL ENCO 05/29/2016 JAHAIRA ELLIS MD Ot W07.XXXA FALL FROM CHAIR, INITIAL ENCOUNTER 05/29/2016 JAHAIRA ELLIS MD Ot Y92.[address] 05/29/2016 JAHAIRA ELLIS MD Ot Y99.8 OTHER EXTERNAL CAUSE STATUS 05/29/2016 JAHAIRA ELLIS MD Ot Z23 ENCOUNTER FOR IMMUNIZATION 05/29/2016 JAHAIRA ELLIS MD Ot Z79.82 FDC (CURRENT) USE OF ASPIRIN 05/29/2016 JAHAIRA ELLIS MD Ot Z79.899 OTHER FDC (CURRENT) DRUG THERAPY 05/31/2016 JAHAIRA ELLIS MD Ot S00.01XA ABRASION OF SCALP, INITIAL ENCOUNTER 05/31/2016 JAHAIRA ELLIS MD, Ot S00.531A CONTUSION OF LIP, INITIAL ENCOUNTER 05/31/2016 JAHAIRA ELLIS MD Ot S09.90XA UNSPECIFIED INJURY OF HEAD, INITIAL ENCO 05/31/2016 JAHAIRA ELLIS MD Ot W07.XXXA FALL FROM CHAIR, INITIAL ENCOUNTER 05/31/2016 JAHAIRA ELLIS MD Ot Y92.[address] 05/31/2016 JAHAIRA ELLIS MD Ot Y99.8 OTHER EXTERNAL CAUSE STATUS 05/31/2016 JAHAIRA ELLIS MD Ot Z23 ENCOUNTER FOR IMMUNIZATION 05/31/2016 JAHAIRA ELLIS MD Ot Z79.82 FDC (CURRENT) USE OF ASPIRIN 05/31/2016 JAHAIRA ELLIS MD Ot Z79.899 OTHER ABATTOIR MANAGER (CURRENT) DRUG THERAPY 06/04/2016 Ot 787.24 DYSPHAGIA, PHARYNGOESOPHAGEAL PHASE 06/04/2016 Ot 530.81 ESOPHAGEAL REFLUX 06/04/2016 Ot 562.10 DIVERTICULOSIS COLON (W/O MENT OF HEMORR 06/04/2016 Ot V76.51 SCREEN MAL NEOP-COLON 06/04/2016 Ot 780.93 MEMORY LOSS 06/04/2016 Ot 250.00 DIAB KRISTEN WO COMPL, TYPE II OR UNSPEC TY 06/04/2016 Ot 433.10 CAROTID ARTERY OCCLUSION W O CEREBRAL IN 06/04/2016 Ot 794.31 ABNORM ELECTROCARDIOGRAM 06/04/2016 JENY QUIROZ MD Ot D64.9 ANEMIA, UNSPECIFIED 06/04/2016 JENY QUIROZ MD Ot I12.9 HYPERTENSIVE CHRONIC KIDNEY DISEASE W ST 06/04/2016 JENY QUIROZ MD Ot N18.3 CHRONIC KIDNEY DISEASE, STAGE 3 (MODERAT 06/04/2016 LAUREN LOPEZ AIR SUPPORT CONTROL OFFICER Ot R05 COUGH 06/04/2016 LAUREN LOPEZ AIR SUPPORT CONTROL OFFICER Ot R50.9 FEVER, UNSPECIFIED 06/09/2016 LAUREN LOPEZ AIR SUPPORT CONTROL OFFICER Ot R05 COUGH 06/09/2016 LAUREN LOPEZ AIR SUPPORT CONTROL OFFICER Ot R50.9 FEVER, UNSPECIFIED 06/16/2016 LAUREN LOPEZ AIR SUPPORT CONTROL OFFICER Ot R05 COUGH 06/16/2016 LAUREN LOPEZ APRN Ot R50.9 FEVER, UNSPECIFIED 05/16/2017 JENY QUIROZ MD Ot D64.9 ANEMIA, UNSPECIFIED 05/16/2017 JENY QUIROZ MD Ot I12.9 HYPERTENSIVE CHRONIC KIDNEY DISEASE W ST 05/16/2017 JENY QUIROZ MD Ot N18.3 CHRONIC KIDNEY DISEASE, STAGE 3 (MODERAT Procedures There is no data. Results Test Result Range Urine protein/creatinine mass ratio - 04/21/17 17:48 Urine protein measurement (mass/volume) < mg/dL 6-12 Urine creatinine measurement (mass/volume) 45 mg/dL 30- 125 Urine protein/creatinine mass ratio TNP NRG Complete urinalysis with reflex to culture - 04/21/17 17:48 Urine color determination YELLOW NRG Urine clarity determination CLEAR NRG Urine pH measurement by test strip 7 5-9 Specific gravity of urine by test strip 1.005 1.016- 1.022 Urine protein assay by test strip, semi-quantitative NEGATIVE NEGATIVE Urine glucose detection by automated test strip NEGATIVE NEGATIVE Erythrocytes detection in urine sediment by light microscopy NEGATIVE NEGATIVE Urine ketones detection by automated test strip NEGATIVE NEGATIVE Urine nitrite detection by test strip NEGATIVE NEGATIVE Urine total bilirubin detection by test strip NEGATIVE NEGATIVE Urine urobilinogen measurement by automated test strip (mass/volume) NORMAL NORMAL Urine leukocyte esterase detection by dipstick NEGATIVE NEGATIVE Automated urine sediment erythrocyte count by microscopy (number/high power field) NONE NRG Automated urine sediment leukocyte count by microscopy (number/high power field ) NONE NRG Bacteria detection in urine sediment by light microscopy NEGATIVE NRG Squamous epithelial cells detection in urine sediment by light microscopy NONE NRG Crystals detection in urine sediment by light microscopy NONE NRG Casts detection in urine sediment by light microscopy NONE NRG Mucus detection in urine sediment by light microscopy NEGATIVE NRG Complete urinalysis with reflex to culture NO NRG Encounters ACCT No. Visit Date/Time Discharge Status Pt. Type Provider Facility Loc./Unit Complaint [id number] 04/21/2017 17:36:00 04/21/2017 23:59:59 CLS Outpatient JENY QUIROZ MD [facility] LAB CKD STAGE III, GLOMERULONEPHRITIS [id number] 05/29/2016 18:00:00 05/29/2016 19:17:00 DIS Emergency JAHAIRA ELLIS MD [facility] ER FALL, HEAD INJ [id number] 05/23/2016 11:14:00 05/23/2016 23:59:59 CLS Outpatient JOHN, LAUREN R AIR SUPPORT CONTROL OFFICER [facility] RAD FEVER,COUGH [id number] 05/12/2015 14:54:00 05/12/2015 23:59:59 CLS Outpatient GABRIELLA ROYAL, ROSHNI Ray [facility] RAD CKD STAGE 111 [id number] 05/01/2015 13:38:00 05/01/2015 23:59:59 CLS Outpatient BAY CASTRO MD [facility] WOUNDCARE [id number] 10/21/2013 09:13:00 10/21/2013 09:37:00 DIS Emergency CALEB ROYAL, JAHAIRA Jones [facility] ER SUTURE REMOVAL [id number] 10/12/2013 16:46:00 10/12/2013 17:39:00 DIS Emergency JERONIMO MAYBERRY APRN [facility] ER LEFT RING FINGER LAC [id number] 07/28/2014 08:55:00 Document Registration [id number] 07/28/2014 08:55:00 Document Registration [id number] 07/24/2014 16:04:00 Document Registration [id number] 07/24/2014 16:04:00 Document Registration [id number] 12/23/2010 07:35:00 Document Registration [id number] 07/28/2010 11:02:00 Document Registration [id number] 07/17/2017 13:00:00 07/17/2017 23:59:59 CLS Outpatient MELLY LAC, SIMÓN [facility] [id number] 07/28/2014 07:05:00 07/28/2014 23:59:59 CLS Outpatient TESSIE ROYAL FACCJACKIE FACP CCDS [facility] CARD [id number] 07/24/2014 15:30:00 07/25/2014 14:00:00 DIS Inpatient JOHNATHAN BLACK DO [facility] CSD
--- NOTE | 2017-12-16 08:26 | Diagnostic Imaging Report ---
INDICATION: Fever. Comparison made with prior examination 05/23/2016. FINDINGS: Heart size is normal, mediastinum is unremarkable. There is no pleural effusion, pneumothorax or pneumonia. IMPRESSION: No acute cardiopulmonary abnormality. Dictated by: Dictated on workstation # [id number]
[2017-12-20] MEDS ORDERED: CEPH-507 PO (07:52)
== END 2017-12-15 22:56 | disposition home or self-care (01) ==
LOC: EDUNIT# 20:30 → ER 20:33
DX: R50.9 Fever, unspecified (principal); Z88.5 Allergy status to narcotic agent; Z88.8 Allergy status to other drugs, medicaments and biological substances; Z79.82 Long term (current) use of aspirin; Z79.52 Long term (current) use of systemic steroids; Z82.49 Family history of ischemic heart disease and other diseases of the circulatory system
CPT/HCPCS: 36415; 71045; 80053; 81000; 85025; 96360

== ENCOUNTER 2017-12-16 20:29 | Inpatient (IN) | payer MEDICARE ==
[~2017-12-16] VITALS: Ht 180.3 cm; Wt 86.7 kg
[2017-12-16] MEDS ORDERED: LACTATED RINGERS 1,000 ML IV ONE (20:35)
[2017-12-16] MEDS ORDERED: IBUPROFEN 800 MG (MOTRIN) TAB PO STA (20:35)
[2017-12-16 20:56] LABS: BASOPHILS % (AUTO) 0 % (0-10); EOSINOPHILS # (AUTO) 0.1 10^3/uL (0.0-0.3); EOSINOPHILS % (AUTO) 1 % (0-10); HEMATOCRIT 32 % (40-54); HEMOGLOBIN 10.6 G/DL (13.3-17.7); LYMPHOCYTES # (AUTO) 0.8 X 10^3 (1.0-4.0); LYMPHOCYTES % (AUTO) 9 % (12-44); MEAN CORPUSCULAR HEMOGLOBIN 31 PG (25-34); MEAN CORPUSCULAR HGB CONC 33 G/DL (32-36); MEAN CORPUSCULAR VOLUME 93 FL (80-99); MEAN PLATELET VOLUME 10.7 FL (7.4-10.4); MONOCYTES % (AUTO) 11 % (0-12); NEUTROPHILS # (AUTO) 7.2 X 10^3 (1.8-7.8); NEUTROPHILS % (AUTO) 79 % (42-75); PLATELET COUNT 126 10^3/uL (130-400); RED BLOOD COUNT 3.42 10^6/uL (4.35-5.85); RED CELL DISTRIBUTION WIDTH 13.1 % (10.0-14.5)
[2017-12-16 21:06] LABS: BILIRUBIN,URINE NEGATIVE (NEGATIVE); CLARITY,URINE CLEAR; COLOR,URINE YELLOW; GLUCOSE, URINE (UA) NEGATIVE (NEGATIVE); KETONES,URINE NEGATIVE (NEGATIVE); LEUKOCYTE ESTERASE ,URINE 1+ (NEGATIVE); NITRITE,URINE NEGATIVE (NEGATIVE); PH,URINE 5 (5-9); PROTEIN,URINE 3+ (NEGATIVE); UROBILINOGEN,URINE NORMAL (NORMAL)
--- OUTSIDE RECORDS SUMMARY | 2017-12-16 21:07 | XMS REPORT | Continuity of Care Document ---
Author Author [facility] Organization [facility] Address Unknown Phone Unavailable Allergies Active Description Code Type Severity Reaction Onset Reported/Identified Relationship to Patient Clinical Status Yes No Known Drug Allergies [id number] Drug Allergy Unknown N/A 07/28/2010 Yes acetaminophen [id number] Drug Allergy Unknown N/A 07/24/2014 Yes hydrocodone [id number] Drug Allergy Unknown N/A 07/24/2014 Yes oxycodone [id number] Drug Allergy Unknown N/A 07/24/2014 Yes acetaminophen [id number] Drug Allergy Unknown N/A 07/24/2014 Yes hydrocodone [id number] Drug Allergy Unknown N/A 07/24/2014 Yes oxycodone [id number] Drug Allergy Unknown N/A 07/24/2014 Medications There is no data. Problems Date Dx Coded Attending Type Code Diagnosis Diagnosed By 07/28/2010 Ot 922.2 07/28/2010 Ot 959.12 07/28/2010 Ot E000.8 07/28/2010 Ot E849.0 07/28/2010 Ot E917.9 10/12/2013 JERONIMO MAYBERRY BUSINESS RELATIONS MANAGER Ot 883.0 OPEN WOUND OF FINGER 10/12/2013 JERONIMO MAYBERRY BUSINESS RELATIONS MANAGER Ot E029.9 OTHER ACTIVITY 10/12/2013 JERONIMO MAYBERRY BUSINESS RELATIONS MANAGER Ot E849.0 ACCIDENT IN HOME 10/12/2013 JERONIMO MAYBERRY BUSINESS RELATIONS MANAGER Ot E920.8 ACC-CUTTING INSTRUM NEC 10/12/2013 JERONIMO MAYBERRY BUSINESS RELATIONS MANAGER Ot V06.1 [id number], COMBINED [ 10/21/2013 CALEB ROYAL, JAHAIRA Jones [...] Ot G30.9 ALZHEIMER'S DISEASE, UNSPECIFIED 05/08/2015 GLORIA ROYAL, BAY Santana Ot L97.522 NON-PRS CHRONIC ULCER [...] IMMUNIZATION 05/29/2016 JAHAIRA ELLIS MD Ot Z79.82 JAIL (CURRENT) USE OF ASPIRIN 05/29/2016 JAHAIRA ELLIS MD Ot Z79.899 OTHER JAIL (CURRENT) DRUG THERAPY 05/31/2016 JAHAIRA ELLIS MD [...] IMMUNIZATION 05/31/2016 JAHAIRA ELLIS MD Ot Z79.82 JAIL (CURRENT) USE OF ASPIRIN 05/31/2016 JAHAIRA ELLIS MD Ot Z79.899 OTHER PHYSICAL THERAPIST (CURRENT) DRUG THERAPY 06/04/2016 Ot 787.24 DYSPHAGIA, [...] DISEASE, STAGE 3 (MODERAT 06/04/2016 LAUREN LOPEZ BUSINESS RELATIONS MANAGER Ot R05 COUGH 06/04/2016 LAUREN LOPEZ BUSINESS RELATIONS MANAGER Ot R50.9 FEVER, UNSPECIFIED 06/09/2016 LAUREN LOPEZ BUSINESS RELATIONS MANAGER Ot R05 COUGH 06/09/2016 LAUREN LOPEZ BUSINESS RELATIONS MANAGER Ot R50.9 FEVER, UNSPECIFIED 06/16/2016 LAUREN LOPEZ BUSINESS RELATIONS MANAGER Ot R05 COUGH 06/16/2016 LAUREN LOPEZ APRN [...] Status Pt. Type Provider Facility Loc./Unit Complaint [id number] 04/21/2017 17:36:00 04/21/2017 23:59:59 CLS Outpatient JENY QUIROZ MD [facility] LAB CKD STAGE III, GLOMERULONEPHRITIS [id number] 05/29/2016 18:00:00 05/29/2016 19:17:00 DIS Emergency JAHAIRA ELLIS MD [facility] ER FALL, HEAD INJ [id number] 05/23/2016 11:14:00 05/23/2016 23:59:59 CLS Outpatient JOHN, LAUREN R BUSINESS RELATIONS MANAGER [facility] RAD FEVER,COUGH [id number] 05/12/2015 14:54:00 05/12/2015 23:59:59 CLS Outpatient GABRIELLA ROYAL, ROSHNI Ray [facility] RAD CKD STAGE 111 [id number] 05/01/2015 13:38:00 05/01/2015 23:59:59 CLS Outpatient BAY CASTRO MD [facility] WOUNDCARE [id number] 10/21/2013 09:13:00 10/21/2013 09:37:00 DIS Emergency CALEB ROYAL, JAHAIRA Jones [facility] ER SUTURE REMOVAL [id number] 10/12/2013 16:46:00 10/12/2013 17:39:00 DIS Emergency JERONIMO MAYBERRY APRN [facility] ER LEFT RING FINGER LAC [id number] 07/28/2014 08:55:00 Document Registration [id number] 07/28/2014 08:55:00 Document Registration [id number] 07/24/2014 16:04:00 Document Registration [id number] 07/24/2014 16:04:00 Document Registration [id number] 12/23/2010 07:35:00 Document Registration [id number] 07/28/2010 11:02:00 Document Registration [id number] 07/17/2017 13:00:00 07/17/2017 23:59:59 CLS Outpatient MELLY LAC, SIMÓN [facility] [id number] 07/28/2014 07:05:00 07/28/2014 23:59:59 CLS Outpatient TESSIE ROYAL FACCJACKIE FACP CCDS [facility] CARD [id number] 07/24/2014 15:30:00 07/25/2014 14:00:00 DIS Inpatient JOHNATHAN BLACK DO [facility] CSD
[2017-12-16 21:13] LABS: ALBUMIN 3.4 GM/DL (3.2-4.5); BILIRUBIN,TOTAL 0.3 MG/DL (0.1-1.0); CREATININE SERUM 2.16 MG/DL (0.60-1.30); POTASSIUM 3.9 MMOL/L (3.6-5.0); TOTAL PROTEIN 6.7 GM/DL (6.4-8.2)
[2017-12-16 21:24] LABS: AMORPHOUS SEDIMENT,UR LARGE AMOR URATES /LPF; BACTERIA,URINE NEGATIVE /HPF; SQUAMOUS EPITHELIAL CELL,UR 0-2 /HPF; WBC,URINE 0-2 /HPF
--- NOTE | 2017-12-16 21:33 | Diagnostic Imaging Report ---
EXAM: CHEST 1 VIEW, AP/PA ONLY INDICATION: Fever. COMPARISON: Chest radiograph 12/15/2017. FINDINGS: Low lung volumes. Normal heart size. Since yesterday, there is an increasing right perihilar infiltrate. Mild atelectasis or infiltrate in the left costophrenic angle. No pleural effusion or pneumothorax. No acute osseous findings. IMPRESSION: 1. Increasing right perihilar infiltrate since yesterday. Recommend followup to resolution. 2. There is also new mild atelectasis or infiltrate in the left costophrenic angle. Dictated by: Dictated on workstation # [id number]
[2017-12-16] MEDS ORDERED: cefTRIAXone FOR IV USE 1,000 MG in NS (IVPB) 50 ML IV ONE (21:45)
--- NOTE | 2017-12-16 21:47 | ED General ---
General Chief Complaint: Fever-Adult/Adol Stated Complaint: FEVER Source of Information: EMS, [facility], Other (NURSING STAFF MEMBER GIVES A LITTLE OF CURRENT HPI) History of Present Illness Date Seen by Provider: Dec 16, 2017 Time Seen by Provider: 20:31 Initial Comments PT ARRIVES VIA EMS [facility] PT HAS HAD A FEVER UP TO 102 FOR THE LAST 3 NIGHTS PT HAS HAD A COUGH FOR 3-4 DAYS NO SHORTNESS OF BREATH WAS SEEN IN ER LAST PM FOR THESE SAME SYMPTOMS--WORK UP ESSENTIALLY NORMAL, AND PT DID NOT HAVE FEVER DURING ER STAY. NO RX GIVEN PT RECEIVED TYLENOL 1 GRAM 2 HOURS AGO IS REPORTED THAT PT REFUSED HIS REGULAR MEDICATIONS TODAY PCP: DR. ISAACS Allergies and Home Medications Allergies Coded Allergies: acetaminophen (Unverified Allergy, Unknown, 07/28/14) hydrocodone (Unverified Allergy, Unknown, 07/28/14) oxycodone (Unverified Allergy, Unknown, 07/28/14) Home Medications Aspirin 81 Mg Tablet., 81 MG PO DAILY, (Reported) Aspirin 81 Mg Tablet., 81 MG PO DAILY Prescribed by: MYRON DAWN on 07/25/14 1355 Calcium Carbonate/Vitamin D3 1 Each Tab.chew, 1 TAB PO BID, (Reported) Carvedilol 6.25 Mg Tab, 6.25 MG PO BID, (Reported) Cephalexin Monohydrate 500 Mg Capsule, 1 EACH PO TID Prescribed by: JERONIMO MAYBERRY on 10/12/13 172 Cholecalciferol 1,000 Unit Capsule, 1,000 UNIT PO DAILY, (Reported) Docusate Sodium 100 Mg Capsule, 100 MG PO BID, (Reported) Ferrous Sulfate 325 Mg Tablet, 325 MG PO BID, (Reported) Finasteride 5 Mg Tablet, 5 MG PO DAILY, (Reported) Folic Acid 1 Mg Tablet, 1 MG PO DAILY, (Reported) Hydrocodone Bit/Acetaminophen 1 Tab Tablet, 1 TAB PO Q6H PRN for PAIN Prescribed by: JERONIMO MAYBERRY on 10/12/13 172 Memantine Hcl 10 Mg Tablet, 10 MG PO BID, (Reported) Omeprazole 40 Mg Capsule., 40 MG PO DAILY, (Reported) Paroxetine Hcl 20 Mg Tablet, 20 MG PO DAILY, (Reported) Prednisone 5 Mg Tablet, 5 MG PO DAILY, (Reported) Simvastatin 20 Mg Tablet, 20 MG PO HS, (Reported) Tamsulosin Hcl 0.4 Mg Cap.sr.24h, 0.4 MG PO DAILY, (Reported) Patient Home Medication List Home Medication List Reviewed: Yes Review of Systems Review of Systems Constitutional: see HPI, fever, other (UNABLE TO OBTAIN ANY INFORMATION FROM PT ) Respiratory: cough Past Rxjewqc-Gjcprn-Hwtvsc Hx Patient Social History Smoking Status: Unknown if Ever Smoked Recent Hopitalizations: No Immunizations Up To Date Tetanus Booster (TDap): Less than 5yrs Past Medical History Surgeries: Yes (BILATERAL CAROTID ENDARTERECTOMY; PARAUMBILICAL HERNIA REPAIR; COLONOSCOPY; LEFT CATARACT; CYSTOSCOPY/LEFT URETEROSCOPY) Abdominal, Bladder Surgery, Eye Surgery, Tonsillectomy, Vascular Surgery Respiratory: Yes (PCP PNEUMONIA) Pneumonia Cardiac: Yes High Cholesterol, Hypertension Neurological: Yes Dementia Genitourinary: Yes (CHRONIC RENAL FAILURE/INSUFFICIENCY; ANCA VASCULITIS/ GLOMERULONEPHRITIS) Benign Prostatic Hyperpl Gastrointestinal: Yes Abdominal Hernia, Gastroesophageal Reflux, Chronic Constipation Musculoskeletal: No Endocrine: No HEENT: No Cancer: No Psychosocial: Yes Sleep Difficulties, Anxiety, Depression Integumentary: No Blood Disorders: No Family Medical History Alzheimer's disease 19 MOTHER, Diabetes mellitus 19 FATHER, , Age:60 years and older Myocardial infarction 19 FATHER, , Age:60 years and older Physical Exam Vital Signs Vital Signs - First Documented 12/16/17 12/16/17 12/16/17 20:30 22:00 22:19 Temp 100.5 Pulse 94 Resp 20 B/P (MAP) 132/66 (88) Pulse Ox 93 O2 Delivery Room Air Capillary Refill : Height, Weight, BMI Height: 5'11.00" Weight: 211lbs. oz. 95.207271oe; BMI Method:Stated General Appearance: No Apparent Distress, WD/WN, Other (PT AWAKE, VERY ALERT, ACTIVE, TALKATIVE, LAUGHING, JOKING--EVEN THOUGH CONFUSED TO TIME, PLACE, SITUATION AND EXTREMELY POOR MEMORY. SPEECH IS NON-SENSICAL AT TIMES. ) HEENT: PERRL/EOMI, Other (MULTIPLE MISSING TEETH) Respiratory: Normal Breath Sounds, No Accessory Muscle Use, No Respiratory Distress Cardiovascular: Regular Rate, Rhythm, No Edema, No Murmur Gastrointestinal: Non Tender, Soft Extremity: Normal Inspection, No Pedal Edema Neurologic/Psychiatric: Alert, No Motor/Sensory Deficits, Normal Mood/Affect, Other (MENTATION NOTED ABOVE--IS PT'S NORMAL BASELINE, PER CAREGIVER) Skin: Normal Color, Warm/Dry Focused Exam Lactate Level 12/16/17 20:44: Lactic Acid Level 1.74 Lactic Acid Level Progress/Results/Core Measures Suspected Sepsis SIRS Temperature:100.5 Pulse: Respiratory Rate: Laboratory Tests 12/16/17 20:44: White Blood Count 9.0 12/17/17 06:10: White Blood Count 8.0 Blood Pressure / Mean: 12/16/17 20:44: Lactic Acid Level 1.74 Laboratory Tests 12/16/17 20:44: Creatinine 2.16H, Platelet Count 126L, Total Bilirubin 0.3 12/17/17 06:10: Creatinine 1.94H, Platelet Count 103L, Total Bilirubin 0.3 Results/Orders Lab Results Laboratory Tests Test 12/16/17 20:44 12/16/17 21:00 12/17/17 06:10 Range/Units White Blood Count 9.0 8.0 4.3-11.0 10^3/uL Red Blood Count 3.42 L 3.27 L 4.35-5.85 10^6/uL Hemoglobin 10.6 L 10.1 L 13.3-17.7 G/DL Hematocrit 32 L 31 L 40-54 % Mean Corpuscular Volume 93 93 80-99 FL Mean Corpuscular Hemoglobin 31 31 25-34 PG Mean Corpuscular Hemoglobin Concent 33 33 32-36 G/DL Red Cell Distribution Width 13.1 13.0 10.0-14.5 % Platelet Count 126 L 103 L 130-400 10^3/uL Mean Platelet Volume 10.7 H 10.3 7.4-10.4 FL Neutrophils (%) (Auto) 79 H 77 H 42-75 % Lymphocytes (%) (Auto) 9 L 11 L 12-44 % Monocytes (%) (Auto) 11 10 0-12 % Eosinophils (%) (Auto) 1 2 0-10 % Basophils (%) (Auto) 0 0 0-10 % Neutrophils # (Auto) 7.2 6.1 1.8-7.8 X 10^3 Lymphocytes # (Auto) 0.8 L 0.9 L 1.0-4.0 X 10^3 Monocytes # (Auto) 1.0 0.8 0.0-1.0 X 10^3 Eosinophils # (Auto) 0.1 0.2 0.0-0.3 10^3/uL Basophils # (Auto) 0.0 0.0 0.0-0.1 10^3/uL Sodium Level 136 139 135-145 MMOL/L Potassium Level 3.9 3.8 3.6-5.0 MMOL/L Chloride Level 105 109 H 98-107 MMOL/L Carbon Dioxide Level 21 23 21-32 MMOL/L Anion Gap 10 7 5-14 MMOL/L Blood Urea Nitrogen 45 H 39 H 7-18 MG/DL Creatinine 2.16 H 1.94 H 0.60-1.30 MG/DL Estimat Glomerular Filtration Rate 30 34 BUN/Creatinine Ratio 21 20 Glucose Level 204 H 105 70-105 MG/DL Lactic Acid Level 1.74 0.50-2.00 MMOL/L Calcium Level 9.0 8.7 8.5-10.1 MG/DL Corrected Calcium 9.5 9.5 8.5-10.1 MG/DL Total Bilirubin 0.3 0.3 0.1-1.0 MG/DL Aspartate Amino Transf (AST/SGOT) 20 25 5-34 U/L Alanine Aminotransferase (ALT/SGPT) 17 17 0-55 U/L Alkaline Phosphatase 41 38 L 40-136 U/L Total Protein 6.7 6.0 L 6.4-8.2 GM/DL Albumin 3.4 3.0 L 3.2-4.5 GM/DL Amylase Level 37 25-125 U/L Lipase 23 8-78 U/L Urine Color YELLOW Urine Clarity CLEAR Urine pH 5 5-9 Urine Specific Tucker 1.010 L 1.016-1.022 Urine Protein 3+ H NEGATIVE Urine Glucose (UA) NEGATIVE NEGATIVE Urine Ketones NEGATIVE NEGATIVE Urine Nitrite NEGATIVE NEGATIVE Urine Bilirubin NEGATIVE NEGATIVE Urine Urobilinogen NORMAL NORMAL MG/DL Urine Leukocyte Esterase 1+ H NEGATIVE Urine RBC (Auto) 2+ H NEGATIVE Urine RBC NONE /HPF Urine WBC 0-2 /HPF Urine Squamous Epithelial Cells 0-2 /HPF Urine Crystals PRESENT H /LPF Urine Amorphous Sediment LARGE LAUREN URATES H /LPF Urine Bacteria NEGATIVE /HPF Urine Casts NONE /LPF Urine Mucus NEGATIVE /LPF Urine Culture Indicated NO My Orders Orders - BENITA COPELAND DO Saline Lock/Iv-Start (12/16/17 20:35) Monitor-Rhythm Ecg Trace Only (12/16/17 20:35) Amylase (12/16/17 20:35) Cbc With Automated Diff (12/16/17 20:35) Comprehensive Metabolic Panel (12/16/17 20:35) Lactic Acid Analyzer (12/16/17 20:35) Lipase (12/16/17 20:35) Ua Culture If Indicated (12/16/17 20:35) Blood Culture (12/16/17 20:35) Chest 1 View, Ap/Pa Only (12/16/17 20:35) Saline Lock/Iv-Start (12/16/17 20:35) Lactated Ringers (Lr 1000 Ml Iv Solution (12/16/17 20:35) Ibuprofen Tablet (Motrin Tablet) (12/16/17 20:35) Ceftriaxone For Iv Use (Rocephin For I (12/16/17 21:45) Medications Given in ED Current Medications Medications Dose Ordered Sig/Maddy Route Start Time Stop Time Status Last Admin Dose Admin Ceftriaxone Sodium 1000 mg/ Sodium Chloride 60 ml @ 100 mls/hr ONCE ONCE IV 12/16/17 21:45 12/16/17 22:20 DC 12/16/17 21:46 100 MLS/HR Lactated Ringer's 1,000 ml @ 0 mls/hr Q0M ONCE IV 12/16/17 20:35 12/16/17 20:37 DC 12/16/17 21:06 999 MLS/HR Vital Signs/I&O 12/16/17 12/16/17 12/16/17 12/16/17 20:30 21:07 22:00 22:19 Temp 100.5 100.5 98.9 98.9 Pulse 94 87 87 Resp 20 20 20 B/P (MAP) 132/66 (88) 132/66 132/66 (88) Pulse Ox 93 O2 Delivery Room Air 12/16/17 12/16/17 12/16/17 12/16/17 22:45 22:45 23:15 23:35 Temp 101.2 101.2 Pulse 79 76 Resp 16 B/P (MAP) 101/51 (68) Pulse Ox 97 96 95 O2 Delivery Nasal Cannula Nasal Cannula O2 Flow Rate 2.00 2.00 12/16/17 12/17/17 12/17/17 12/17/17 23:53 00:12 00:14 00:45 Temp 99.6 98.9 Pulse 76 70 Resp 16 B/P (MAP) 109/63 (78) Pulse Ox 96 O2 Delivery Nasal Cannula Nasal Cannula O2 Flow Rate 2.00 2.00 12/17/17 12/17/17 12/17/17 01:00 02:45 06:41 Temp 99.1 98.6 Pulse 71 66 79 Resp 18 16 B/P (MAP) 122/69 (86) 126/76 (93) Pulse Ox 95 95 O2 Delivery Nasal Cannula Nasal Cannula O2 Flow Rate 2.00 2.00 12/17/17 00:00 Intake Total 1000 ml Balance 1000 ml Capillary Refill : Progress Note : Progress Note UNEVENTFUL ER STAY ECG Initial ECG Impression Date: Dec 16, 2017 Initial ECG Impression Time: 20:18 Initial ECG Rate: 84 Initial ECG Rhythm: Normal Sinus Diagnostic Imaging Comments CXR--INCREASING RIGHT PERIHILAR INFILTRATE SINCE YESTERDAY AND NEW LEFT BASILAR ATELECTASIS OR INFILTRATE --PER RADIOLOGIST REPORT @ 2124 Reviewed: Reviewed by Me Departure Communication (Admissions) 2123--SPOKE WITH DR. BARNES, HOSPITAL[facility]. ACCEPTS PT FOR ADMIT. Impression Primary Impression: Pneumonia Additional Impressions: Chronic renal insufficiency Dementia Disposition: ADMITTED INPATIENT Condition: Stable Admissions Decision to Admit Reason: Admit from ER (General) Decision to Admit/Date: Dec 16, 2017 Time/Decision to Admit Time: 21:25 Departure-Patient Inst. Referrals: JAMA ISAACS MD (PCP/Family) Primary Care Physician BENITA COPELAND DO Dec 16, 2017 21:47
--- OUTSIDE RECORDS SUMMARY | 2017-12-16 22:28 | XMS REPORT | Continuity of Care Document ---
Author Author [facility] Organization [facility] [address] Address Unknown Phone Unavailable Allergies Active Description Code Type Severity Reaction Onset Reported/Identified Relationship to Patient Clinical Status Yes No Known Drug Allergies [id number] Drug Allergy Unknown N/A 07/28/2010 Yes acetaminophen [id number] Drug Allergy Unknown N/A 07/24/2014 Yes hydrocodone [id number] Drug Allergy Unknown N/A 07/24/2014 Yes oxycodone [id number] Drug Allergy Unknown N/A 07/24/2014 Yes acetaminophen [id number] Drug Allergy Unknown N/A 07/24/2014 Yes hydrocodone [id number] Drug Allergy Unknown N/A 07/24/2014 Yes oxycodone [id number] Drug Allergy Unknown N/A 07/24/2014 Medications There is no data. Problems Date Dx Coded Attending Type Code Diagnosis Diagnosed By 07/28/2010 Ot 922.2 07/28/2010 Ot 959.12 07/28/2010 Ot E000.8 07/28/2010 Ot E849.0 07/28/2010 Ot E917.9 10/12/2013 JERONIMO MAYBERRY DITCHING MACHINE ENGINEER Ot 883.0 OPEN WOUND OF FINGER 10/12/2013 JERONIMO MAYBERRY DITCHING MACHINE ENGINEER Ot E029.9 OTHER ACTIVITY 10/12/2013 JERONIMO MAYBERRY DITCHING MACHINE ENGINEER Ot E849.0 ACCIDENT IN HOME 10/12/2013 JERONIMO MAYBERRY DITCHING MACHINE ENGINEER Ot E920.8 ACC-CUTTING INSTRUM NEC 10/12/2013 JERONIMO MAYBERRY DITCHING MACHINE ENGINEER Ot V06.1 [id number], COMBINED [ 10/21/2013 CALEB ROYAL, JAHAIRA Jones [...] Ot Z23 ENCOUNTER FOR IMMUNIZATION 05/29/2016 JAHAIRA ELILS MD Ot Z79.82 [facility] (CURRENT) USE OF ASPIRIN 05/29/2016 JAHAIRA ELLIS MD Ot Z79.899 OTHER [facility] (CURRENT) DRUG THERAPY 05/31/2016 JAHAIRA ELLIS MD [...] IMMUNIZATION 05/31/2016 JAHAIRA ELLIS MD Ot Z79.82 [facility] (CURRENT) USE OF ASPIRIN 05/31/2016 JAHAIRA ELLIS MD Ot Z79.899 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 Type Provider Facility Loc./Unit Complaint [id number] 04/21/2017 17:36:00 04/21/2017 23:59:59 CLS Outpatient JENY QUIROZ MD [facility] [address] LAB CKD STAGE III, GLOMERULONEPHRITIS [id number] 05/29/2016 18:00:00 05/29/2016 19:17:00 DIS Emergency JAHAIRA ELLIS MD [facility] [address] ER FALL, HEAD INJ [id number] 05/23/2016 11:14:00 05/23/2016 23:59:59 CLS Outpatient JOHN, LAUREN R DITCHING MACHINE ENGINEER [facility] [address] RAD FEVER,COUGH [id number] 05/12/2015 14:54:00 05/12/2015 23:59:59 CLS Outpatient GABRIELLA ROYAL, ROSHNI Ray [facility] [address] RAD CKD STAGE 111 [id number] 05/01/2015 13:38:00 05/01/2015 23:59:59 CLS Outpatient BAY CASTRO MD [facility] [address] WOUNDCARE [id number] 10/21/2013 09:13:00 10/21/2013 09:37:00 DIS Emergency CALEB ROYAL, JAHAIRA Jones [facility] [address] ER SUTURE REMOVAL [id number] 10/12/2013 16:46:00 10/12/2013 17:39:00 DIS Emergency JERONIMO MAYBERRY APRN [facility] [address] ER LEFT RING FINGER LAC [id number] 07/28/2014 08:55:00 Document Registration [id number] 07/28/2014 08:55:00 Document Registration [id number] 07/24/2014 16:04:00 Document Registration [id number] 07/24/2014 16:04:00 Document Registration [id number] 12/23/2010 07:35:00 Document Registration [id number] 07/28/2010 11:02:00 Document Registration [id number] 07/17/2017 13:00:00 07/17/2017 23:59:59 CLS Outpatient MELLY LAC, SIMÓN [facility] [id number] 07/28/2014 07:05:00 07/28/2014 23:59:59 CLS Outpatient TESSIE ROYAL FACCJACKIE FACP CCDS [facility] CARD [id number] 07/24/2014 15:30:00 07/25/2014 14:00:00 DIS Inpatient JOHNATHAN BLACK DO [facility] [address] CSD
[2017-12-16 22:45] VITALS: BP 101/51
[2017-12-16] MEDS ORDERED: IBUPROFEN 800 MG (MOTRIN) TAB PO PRN (23:00)
[2017-12-16] MEDS ORDERED: CATHETER FLUSH 10 ML SYR IV PRN (23:00)
[2017-12-16] MEDS ORDERED: AZITHROMYCIN 500 MG/NS 250 ML IVPB IV ONE ×2 (23:00)
[2017-12-16] MEDS ORDERED: ACETAMINOPHEN 500 MG TAB (TYLENOL) PO PRN (23:00)
[2017-12-16] MEDS: 1/2 NS IV SOLUTION 1,000 ML IV SCH (23:12)
[2017-12-16 23:35] VITALS: BP 101/52
[2017-12-16] MEDS ORDERED: RT-ALBUTEROL SULF 2.5 MG/3 ML PRE-MIX VIAL INH PRN (23:45)
[2017-12-17] VITALS (7 sets, daily range): BP systolic 109–177; BP diastolic 63–91
[2017-12-17] MEDS: CATHETER FLUSH 10 ML SYR IV SCH ×3 (04:16→20:20)
[2017-12-17 06:32] LABS: BASOPHILS % (AUTO) 0 % (0-10); EOSINOPHILS # (AUTO) 0.2 10^3/uL (0.0-0.3); EOSINOPHILS % (AUTO) 2 % (0-10); HEMATOCRIT 31 % (40-54); HEMOGLOBIN 10.1 G/DL (13.3-17.7); LYMPHOCYTES # (AUTO) 0.9 X 10^3 (1.0-4.0); LYMPHOCYTES % (AUTO) 11 % (12-44); MEAN CORPUSCULAR HEMOGLOBIN 31 PG (25-34); MEAN CORPUSCULAR HGB CONC 33 G/DL (32-36); MEAN CORPUSCULAR VOLUME 93 FL (80-99); MEAN PLATELET VOLUME 10.3 FL (7.4-10.4); MONOCYTES # (AUTO) 0.8 X 10^3 (0.0-1.0); MONOCYTES % (AUTO) 10 % (0-12); NEUTROPHILS # (AUTO) 6.1 X 10^3 (1.8-7.8); NEUTROPHILS % (AUTO) 77 % (42-75); PLATELET COUNT 103 10^3/uL (130-400); RED BLOOD COUNT 3.27 10^6/uL (4.35-5.85)
[2017-12-17 06:58] LABS: BILIRUBIN,TOTAL 0.3 MG/DL (0.1-1.0); CALCIUM 8.7 MG/DL (8.5-10.1); CREATININE SERUM 1.94 MG/DL (0.60-1.30); POTASSIUM 3.8 MMOL/L (3.6-5.0)
[2017-12-17] MEDS: AZITHROMYCIN 250 MG TAB (ZITHROMAX) PO SCH (08:36)
[2017-12-17] MEDS: 1/2 NS IV SOLUTION 1,000 ML IV SCH (08:36)
--- NOTE | 2017-12-17 10:01 | History & Physical-Hospitalist ---
History of Present Illness HPI/Chief Complaint Pt is a 77yoCM with a PMH of dementia who presented to the ER due to fever. He is unable to provide me any history (when asked why here he stated to watch TV) so all history is obtained from the records. He was brought in from [facility] for evaluation of a fever. He had been seen in the ER two nights ago due to cough and labs and imaging were normal and he was sent home. He developed a fever yesterday and returned where he was found to have a perihilar pneumonia. He was admitted for IV abx given his CURB65 score of 2. Source: patient, family Exam Limitations: clinical condition (dementia) Date Seen 12/17/17 Time Seen by Provider: 09:50 Attending Physician Brendon Friedman MD PCP Flaco Gaxiola MD Referring Physician Date of Admission Dec 16, 2017 at 21:47 Home Medications & Allergies Home Medications Reviewed patient Home Medication Reconciliation performed by pharmacy medication reconciliations industrial manufacturing technician and/or nursing. Patients Allergies have been reviewed. Allergies Allergies Coded Allergies acetaminophen (Unverified Allergy, Unknown, 07/28/14) hydrocodone (Unverified Allergy, Unknown, 07/28/14) oxycodone (Unverified Allergy, Unknown, 07/28/14) Past Lmzitxf-Bxewyn-Gzgoea Hx Past Med/Social Hx: Reviewed Nursing Past Med/Soc Hx, Reviewed and Corrections made Patient Social History Alcohol Use: Denies Use Recreational Drug Use: No Smoking Status: Unknown if Ever Smoked Former Smoker, Quit: Apr 17, 1986 Type Used: Cigarettes Physical Abuse Screen: No Sexual Abuse: No Recent Foreign Travel: No Contact w/other who traveled: No Recent Hopitalizations: No Recent Infectious Disease Expo: No Immunizations Up To Date Tetanus Booster (TDap): Less than 5yrs Seasonal Allergies Seasonal Allergies: No Past Medical History Surgeries: Abdominal, Bladder Surgery, Eye Surgery, Tonsillectomy, Vascular Surgery Respiratory: COPD, Pneumonia Cardiac: High Cholesterol, Hypertension Neurological: Dementia Genitourinary: Benign Prostatic Hyperpl Gastrointestinal: Abdominal Hernia, Gastroesophageal Reflux, Chronic Constipation HEENT: Cataract Psychosocial: Sleep Difficulties, Anxiety, Depression History of Blood Disorders: No Adverse Reaction to Blood Mclean: No Family History Reviewed Nursing Family Hx Alzheimer's disease 19 MOTHER, Diabetes mellitus 19 FATHER, , Age:60 years and older Myocardial infarction 19 FATHER, , Age:60 years and older Review of Systems ROS-Unable to Obtain: Unable to obtain due to dementia Constitutional: see HPI Physical Exam Physical Exam Vital Signs Vital Signs - First Documented 12/16/17 12/16/17 12/16/17 20:30 22:00 22:19 Temp 100.5 Pulse 94 Resp 20 B/P (MAP) 132/66 (88) Pulse Ox 93 O2 Delivery Room Air Capillary Refill : Less Than 3 Seconds Height, Weight, BMI Height: 5'11.00" Weight: 191lbs. 3.0oz. 86.417834xu; 26.7 BMI Method:Stated General Appearance: No Apparent Distress, WD/WN HEENT: PERRL/EOMI, Moist Mucous Membranes Neck: Non Tender, Supple Respiratory: No Respiratory Distress, Wheezing (right sided wheezing) Cardiovascular: Regular Rate, Rhythm, No Murmur Gastrointestinal: Normal Bowel Sounds, Non Tender, Soft Extremity: Normal Capillary Refill, No Calf Tenderness, No Pedal Edema Neurologic/Psychiatric: Alert, Normal Mood/Affect, Disoriented Skin: Normal Color, Warm/Dry Results Results/Procedures Labs Laboratory Tests 12/16/17 20:44 12/17/17 06:10 12/18/17 05:26 Patient resulted labs reviewed. Imaging: Reviewed Imaging Report Assessment/Plan Admission Diagnosis Pneumonia Admission Status: Inpatient Order (span 2 midnights) Reason for Inpatient Admission: IV abx, failed outpatient management, Will need more than two midnights to stabilize for discharge. Diagnosis/Problems Diagnosis/Problems (1) Pneumonia Status: Acute Assessment & Plan: Does not meet sepsis criteria Continue on Rocephin and Azithromycin MAT protocol On room air Qualifiers: Pneumonia type: due to unspecified organism Laterality: right (2) Essential (primary) hypertension Status: Chronic Assessment & Plan: Well controlled overnight with no meds Trend (3) Chronic renal insufficiency Status: Acute Assessment & Plan: Creatinine near baseline of ~2 Trend Qualifiers: Chronic kidney disease stage: stage 3 (moderate) Qualified Codes: N18.3 - Chronic kidney disease, stage 3 (moderate) (4) Dementia Status: Acute Assessment & Plan: At baseline Attempt to decrease overnight disturbances Qualifiers: Dementia type: unspecified type Dementia behavioral disturbance: without behavioral disturbance Qualified Codes: F03.90 - Unspecified dementia without behavioral disturbance Clinical Quality Measures DVT/VTE Risk/Contraindication: Risk Factor Score Per Nursin RFS Level Per Nursing on Admit: 3=High BRENDON FRIEDMAN MD Dec 17, 2017 10:01
[2017-12-17] MEDS: RT-ALBUTEROL SULF 2.5 MG/3 ML PRE-MIX VIAL INH SCH ×2 (10:42→19:17)
[2017-12-17] MEDS: IBUPROFEN TABLET 200 MG TAB PO PRN ×2 (13:05→19:38)
[2017-12-17] MEDS: cefTRIAXone 1 GM/NS 50 ML IVPB IV SCH ×2 (20:20)
[2017-12-18 00:32] VITALS: BP 168/87
[2017-12-18 04:01] VITALS: BP 160/77
[2017-12-18 05:47] LABS: BASOPHILS % (AUTO) 0 % (0-10); EOSINOPHILS # (AUTO) 0.1 10^3/uL (0.0-0.3); EOSINOPHILS % (AUTO) 1 % (0-10); HEMATOCRIT 30 % (40-54); HEMOGLOBIN 10.4 G/DL (13.3-17.7); LYMPHOCYTES # (AUTO) 0.9 X 10^3 (1.0-4.0); LYMPHOCYTES % (AUTO) 11 % (12-44); MEAN CORPUSCULAR HEMOGLOBIN 32 PG (25-34); MEAN CORPUSCULAR HGB CONC 35 G/DL (32-36); MEAN CORPUSCULAR VOLUME 91 FL (80-99); MEAN PLATELET VOLUME 10.5 FL (7.4-10.4); MONOCYTES # (AUTO) 0.7 X 10^3 (0.0-1.0); MONOCYTES % (AUTO) 9 % (0-12); NEUTROPHILS # (AUTO) 5.9 X 10^3 (1.8-7.8); NEUTROPHILS % (AUTO) 78 % (42-75); PLATELET COUNT 117 10^3/uL (130-400); RED CELL DISTRIBUTION WIDTH 13.2 % (10.0-14.5); WHITE BLOOD COUNT 7.6 10^3/uL (4.3-11.0)
[2017-12-18 06:03] LABS: CALCIUM 9.1 MG/DL (8.5-10.1); CREATININE SERUM 1.54 MG/DL (0.60-1.30); POTASSIUM 3.7 MMOL/L (3.6-5.0)
[2017-12-18] MEDS: CATHETER FLUSH 10 ML SYR IV SCH ×3 (06:04→20:20)
[2017-12-18] MEDS: RT-ALBUTEROL SULF 2.5 MG/3 ML PRE-MIX VIAL INH SCH ×2 (07:37→20:14)
[2017-12-18 08:00] VITALS: BP 166/78
--- NOTE | 2017-12-18 08:21 | Progress Note-Hospitalist ---
Subjective HPI/CC On Admission Date Seen by Provider: Dec 18, 2017 Time Seen by Provider: 08:18 Pt is a 77yoCM with a PMH of dementia who presented to the ER due to fever. He is unable to provide me any history (when asked why here he stated to watch TV) so all history is obtained from the records. He was brought in from [facility] for evaluation of a fever. He had been seen in the ER two nights ago due to cough and labs and imaging were normal and he was sent home. He developed a fever yesterday and returned where he was found to have a perihilar pneumonia. He was admitted for IV abx given his CURB65 score of 2. Subjective/Events-last exam Pt reports feeling well. No concerns or complaints. Asking for discharge. Reviewed RN notes- febrile last night. Called and discussed with patient's daughter- remote history of severe pneumonia require intubation and prolonged ventilation. Focused Exam Lactate Level 12/16/17 20:44: Lactic Acid Level 1.74 Objective Exam Vital Signs Vital Signs Date Time Temp Pulse Resp B/P (MAP) Pulse Ox O2 Delivery O2 Flow Rate FiO2 12/18/17 07:38 93 Room Air 12/18/17 04:01 100.4 96 21 160/77 (104) 3.00 Capillary Refill : Less Than 3 Seconds General Appearance: No Apparent Distress, WD/WN Respiratory: Lungs Clear, No Respiratory Distress Cardiovascular: Regular Rate, Rhythm, No Murmur Gastrointestinal: Normal Bowel Sounds, Non Tender, Soft Neurologic/Psychiatric: Alert, Disoriented Results/Procedures Lab Laboratory Tests 12/18/17 05:26 Patient resulted labs reviewed. Imaging: Reviewed Imaging Report Assessment/Plan Assessment and Plan Assess & Plan/Chief Complaint Pneumonia Diagnosis/Problems Diagnosis/Problems (1) Pneumonia Status: Acute Assessment & Plan: Does not meet sepsis criteria Continue on Rocephin and Azithromycin If recurrent fevers today will broaden antibiotics and consult pulm tomorrow MAT protocol titrate oxygen to keep sats >90 Qualifiers: Pneumonia type: due to unspecified organism Laterality: right (2) Essential (primary) hypertension Status: Chronic Assessment & Plan: Elevated overnight- will resume home meds (3) Chronic renal insufficiency Status: Acute Assessment & Plan: Creatinine improved to 1.5 today Trend Qualifiers: Chronic kidney disease stage: stage 3 (moderate) Qualified Codes: N18.3 - Chronic kidney disease, stage 3 (moderate) (4) Dementia Status: Acute Assessment & Plan: At baseline Attempt to decrease overnight disturbances Called and discussed patient with daughter as no family at bedside Qualifiers: Dementia type: unspecified type Dementia behavioral disturbance: without behavioral disturbance Qualified Codes: F03.90 - Unspecified dementia without behavioral disturbance Clinical Quality Measures DVT/VTE Risk/Contraindication: Risk Factor Score Per Nursin RFS Level Per Nursing on Admit: 3=High BRENDON BARNES MD Dec 18, 2017 08:21
[2017-12-18] MEDS: amLODIPine 10 MG (NORVASC) TAB PO SCH (09:01)
[2017-12-18] MEDS: CARVEDILOL 12.5 MG (COREG) TABLET PO SCH ×2 (09:01→20:20)
[2017-12-18] MEDS: MEMANTINE 10 MG (NAMENDA) TABLET PO SCH ×2 (09:01→20:20)
[2017-12-18] MEDS: AZITHROMYCIN 250 MG TAB (ZITHROMAX) PO SCH (09:01)
[2017-12-18 12:00] VITALS: BP 158/72
[2017-12-18 15:45] VITALS: BP 116/76
[2017-12-18 20:10] VITALS: BP 180/82
[2017-12-18] MEDS: cefTRIAXone 1 GM/NS 50 ML IVPB IV SCH ×2 (20:20)
[2017-12-19] VITALS (7 sets, daily range): BP systolic 117–163; BP diastolic 56–80
[2017-12-19] MEDS: CATHETER FLUSH 10 ML SYR IV SCH ×3 (05:25→22:16)
[2017-12-19] MEDS: RT-ALBUTEROL SULF 2.5 MG/3 ML PRE-MIX VIAL INH SCH ×2 (07:03→18:55)
[2017-12-19 07:13] LABS: BASOPHILS % (AUTO) 0 % (0-10); EOSINOPHILS # (AUTO) 0.2 10^3/uL (0.0-0.3); EOSINOPHILS % (AUTO) 3 % (0-10); HEMATOCRIT 35 % (40-54); HEMOGLOBIN 11.6 G/DL (13.3-17.7); LYMPHOCYTES # (AUTO) 0.9 X 10^3 (1.0-4.0); LYMPHOCYTES % (AUTO) 13 % (12-44); MEAN CORPUSCULAR HEMOGLOBIN 30 PG (25-34); MEAN CORPUSCULAR HGB CONC 33 G/DL (32-36); MEAN CORPUSCULAR VOLUME 93 FL (80-99); MEAN PLATELET VOLUME 9.7 FL (7.4-10.4); MONOCYTES # (AUTO) 0.8 X 10^3 (0.0-1.0); MONOCYTES % (AUTO) 11 % (0-12); NEUTROPHILS # (AUTO) 5.1 X 10^3 (1.8-7.8); NEUTROPHILS % (AUTO) 73 % (42-75); PLATELET COUNT 168 10^3/uL (130-400); RED BLOOD COUNT 3.81 10^6/uL (4.35-5.85); RED CELL DISTRIBUTION WIDTH 13.6 % (10.0-14.5); WHITE BLOOD COUNT 6.9 10^3/uL (4.3-11.0)
--- NOTE | 2017-12-19 07:22 | Progress Note-Hospitalist ---
Subjective HPI/CC On Admission Date Seen by Provider: Dec 19, 2017 Time Seen by Provider: 07:19 Pt is a 77yoCM with a PMH of dementia who presented to the ER due to fever. He is unable to provide me any history (when asked why here he stated to watch TV) so all history is obtained from the records. He was brought in from [facility] for evaluation of a fever. He had been seen in the ER two nights ago due to cough and labs and imaging were normal and he was sent home. He developed a fever yesterday and returned where he was found to have a perihilar pneumonia. He was admitted for IV abx given his CURB65 score of 2. Subjective/Events-last exam Pt reports feeling well. No complaints. Had persistent fever overnight again. Labs still pending. Focused Exam Lactate Level 12/16/17 20:44: Lactic Acid Level 1.74 Objective Exam Vital Signs Vital Signs Date Time Temp Pulse Resp B/P (MAP) Pulse Ox O2 Delivery O2 Flow Rate FiO2 12/19/17 07:03 91 Nasal Cannula 1.00 12/19/17 06:08 98.2 88 18 162/80 (107) Capillary Refill : Less Than 3 Seconds General Appearance: No Apparent Distress, WD/WN Respiratory: Lungs Clear, No Respiratory Distress Gastrointestinal: Normal Bowel Sounds, Non Tender, Soft Extremity: No Calf Tenderness, No Pedal Edema Neurologic/Psychiatric: Alert, Disoriented Results/Procedures Lab Laboratory Tests 12/19/17 07:02 Patient resulted labs reviewed. Imaging: Reviewed Imaging Report Assessment/Plan Assessment and Plan Assess & Plan/Chief Complaint Pneumonia Diagnosis/Problems Diagnosis/Problems (1) Pneumonia Status: Acute Assessment & Plan: Does not meet sepsis criteria Continue on Rocephin and Azithromycin fever curve trending down but febrile again overnight Repeat CXR labs form this AM pending Will consult pulm MAT protocol titrate oxygen to keep sats >90 Qualifiers: Pneumonia type: due to unspecified organism Laterality: right (2) Essential (primary) hypertension Status: Chronic Assessment & Plan: Mildly elevated for age- trend (3) Chronic renal insufficiency Status: Acute Assessment & Plan: Creatinine improved today's labs pending Trend Qualifiers: Chronic kidney disease stage: stage 3 (moderate) Qualified Codes: N18.3 - Chronic kidney disease, stage 3 (moderate) (4) Dementia Status: Acute Assessment & Plan: At baseline Attempt to decrease overnight disturbances Qualifiers: Dementia type: unspecified type Dementia behavioral disturbance: without behavioral disturbance Qualified Codes: F03.90 - Unspecified dementia without behavioral disturbance Clinical Quality Measures DVT/VTE Risk/Contraindication: Risk Factor Score Per Nursin RFS Level Per Nursing on Admit: 3=High BRENDON BARNES MD Dec 19, 2017 7:22 am
[2017-12-19 07:30] LABS: CALCIUM 9.7 MG/DL (8.5-10.1); CREATININE SERUM 1.54 MG/DL (0.60-1.30); POTASSIUM 3.9 MMOL/L (3.6-5.0)
--- NOTE | 2017-12-19 07:34 | Pulmonary Consultation ---
History of Present Illness History of Present Illness Date of Consultation 12/19/17 07:27 Time Seen by Provider: 07:27 Date of Admission History of Present Illness 77yo poor ;historian with hx of dementia from [facility] presented to ED on 12/16 secondary to fever of 102 that started 3days prior to admission. Prior to admission he was actually seen in ED for fever and sent home after negative workup. Pt was dx with pneumonia and admitted to 4th floor with abx treatment. I am consulted for pulmonary management and Pneumonia. Allergies and Home Medications Allergies Coded Allergies: acetaminophen (Unverified Allergy, Unknown, 07/28/14) hydrocodone (Unverified Allergy, Unknown, 07/28/14) oxycodone (Unverified Allergy, Unknown, 07/28/14) Home Medications Acetaminophen 500 Mg Tablet, 1,000 MG PO Q8H PRN for PAIN-MILD OR TEMPATURE, ( Reported) Amlodipine Besylate 10 Mg Tablet, 10 MG PO DAILY, (Reported) HOLD SBP<100 Budesonide/Formoterol Fumarate 10.2 Gm Hfa.aer.ad, 2 PUFF IH BID, (Reported) Calcium Carbonate/Vitamin D3 1 Each Tablet, 1 TAB PO DAILY, (Reported) Carvedilol 12.5 Mg Tablet, 12.5 MG PO BID, (Reported) HOLD IF SBP<100 OR PULSE <60 Cephalexin 500 Mg Capsule, 500 MG PO BID Prescribed by: BRENDON BARNES on 12/20/17 0752 Dextromethorphan HBr 15 Mg/5 Ml Syrup, PO UD PRN for COUGH, (Reported) Docusate Sodium 100 Mg Capsule, 100 MG PO BID, (Reported) Ferrous Sulfate 325 Mg Tablet, 325 MG PO DAILY, (Reported) Finasteride 5 Mg Tablet, 5 MG PO DAILY, (Reported) Folic Acid 1 Mg Tablet, 1 MG PO DAILY, (Reported) Melatonin 3 Mg Tablet, 3 MG PO HS, (Reported) Memantine HCl 10 Mg Tablet, 10 MG PO BID, (Reported) Pantoprazole Sodium 40 Mg Tablet.dr, 40 MG PO DAILY, (Reported) Polyethylene Glycol 3350 17 Gm Powd.pack, 17 GM PO BID, (Reported) Prednisone 2.5 Mg Tablet, 2.5 MG PO DAILY, (Reported) Rivastigmine 9.5 Mg Patch, 9.5 MG TD DAILY, (Reported) Sertraline HCl 50 Mg Tablet, 75 MG PO DAILY, (Reported) TAKES 1 & 1/2 (50MG) TABLET Simvastatin 20 Mg Tablet, 20 MG PO HS, (Reported) Tamsulosin HCl 0.4 Mg Cap.er.24h, 0.4 MG PO 1999, (Reported) Trazodone HCl 100 Mg Tablet, 100 MG PO HS, (Reported) [Sensitive Eyes] , 1 DROP OU UD PRN for DRY EYES, (Reported) Past Zhsphok-Qyfebr-Iiibdb Hx Past Med/Social Hx: Reviewed Nursing Past Med/Soc Hx, Reviewed and Corrections made Patient Social History Alcohol Use: Denies Use Recreational Drug Use: No Smoking Status: Unknown if Ever Smoked Type Used: Cigarettes Former Smoker, Quit: Apr 17, 1986 Recent Foreign Travel: No Contact w/Someone Who Travel: No Recent Infectious Disease Expo: No Recent Hopitalizations: No Immunizations Up To Date Tetanus Booster (TDap): Less than 5yrs Seasonal Allergies Seasonal Allergies: No Past Medical History Surgeries: Yes (BILATERAL CAROTID ENDARTERECTOMY; PARAUMBILICAL HERNIA REPAIR; COLONOSCOPY; LEFT CATARACT; CYSTOSCOPY/LEFT URETEROSCOPY) Abdominal, Bladder Surgery, Eye Surgery, Tonsillectomy, Vascular Surgery Respiratory: Yes (PCP PNEUMONIA) Pneumonia Cardiac: Yes High Cholesterol, Hypertension Neurological: Yes Dementia Genitourinary: Yes (CHRONIC RENAL FAILURE/INSUFFICIENCY; ANCA VASCULITIS/ GLOMERULONEPHRITIS) Benign Prostatic Hyperpl Gastrointestinal: Yes Abdominal Hernia, Gastroesophageal Reflux, Chronic Constipation Musculoskeletal: No Endocrine: Yes HEENT: Yes Cataract Cancer: No Psychosocial: Yes Sleep Difficulties, Anxiety, Depression Integumentary: No Blood Disorders: No Adverse Reaction/Blood Tranf: No Family Medical History Reviewed Nursing Family Hx Alzheimer's disease 19 MOTHER, Diabetes mellitus 19 FATHER, , Age:60 years and older Myocardial infarction 19 FATHER, , Age:60 years and older Review of Systems Time Seen by Provider: 07:17 Sepsis Event Evaluation Height, Weight, BMI Height: 5'11.00" Weight: 191lbs. 3.0oz. 86.855282qo; 26.7 BMI Method:Stated Exam Exam Vital Signs Date Time Temp Pulse Resp B/P (MAP) Pulse Ox O2 Delivery O2 Flow Rate FiO2 12/19/17 07:23 98.9 83 20 163/75 (104) 92 Nasal Cannula 1.00 12/19/17 07:03 91 Nasal Cannula 1.00 12/19/17 06:08 98.2 88 18 162/80 (107) 93 Nasal Cannula 3.00 12/19/17 04:08 98.2 88 18 162/80 (107) 93 Nasal Cannula 3.00 12/19/17 00:04 99.8 91 20 163/74 (103) 94 Nasal Cannula 3.00 12/18/17 20:14 95 Nasal Cannula 3.00 12/18/17 20:10 100.0 95 20 180/82 (114) 97 Nasal Cannula 3.00 12/18/17 20:00 Nasal Cannula 2.00 12/18/17 15:45 99.9 65 18 116/76 (89) 97 Nasal Cannula 3.00 12/18/17 12:00 99.1 106 20 158/72 (100) 93 Nasal Cannula 3.00 12/18/17 08:00 100.5 112 20 166/78 (107) 92 Nasal Cannula 3.00 12/18/17 07:38 93 Room Air I & O 12/19/17 07:00 Intake Total 962 ml Output Total 100 ml Balance 862 ml Height & Weight Height: 5'11.00" Weight: 191lbs. 3.0oz. 86.005024xf; 26.7 BMI Method:Stated General Appearance: No Apparent Distress, WD/WN HEENT: PERRL/EOMI, Moist Mucous Membranes Neck: Non Tender, Supple Respiratory: Lungs Clear, No Respiratory Distress Cardiovascular: Regular Rate, Rhythm, No Murmur Capillary Refill: Less Than 3 Seconds Extremity: No Calf Tenderness, No Pedal Edema Neurologic/Psychiatric: Alert, Disoriented Skin: Normal Color, Warm/Dry Results Lab Laboratory Tests 12/18/17 05:26 12/19/17 07:02 Assessment/Plan Assessment/Plan Pneumonia with atelectasis -Has been on Rocephin and azithromycin since admission -No leukocytosis and fever appears to be slowly improving -CXR reviewed from admission. Today's CXR is pending. -Pt has a hx of tobacco use. Will check CT of chest without contrast r/o mass Chronic renal failure dementia/debility - from [facility] ZONIA BARKLEY DO Dec 19, 2017 07:34
--- NOTE | 2017-12-19 08:30 | Diagnostic Imaging Report ---
Clinical indication: Patient with pneumonia and continued fevers. Exam: Portable chest x-ray upright view. Comparisons: Portable chest x-ray dated 12/16/2017. Findings: There is interval development of now small to moderate infiltrate involving right midlung field and right perihilar region. Remainder of the lungs clear. There is no definite pleural effusion or pneumothorax. Pulmonary vasculature and cardiac silhouette are within normal limits. There are hypertrophic spurs seen throughout the spine. IMPRESSION: Interval increased size of right midlung field infiltrate/pneumonia. Dictated by: Dictated on workstation # [id number]
[2017-12-19] MEDS: amLODIPine 10 MG (NORVASC) TAB PO SCH (09:12)
[2017-12-19] MEDS: CARVEDILOL 12.5 MG (COREG) TABLET PO SCH ×2 (09:12→21:26)
[2017-12-19] MEDS: MEMANTINE 10 MG (NAMENDA) TABLET PO SCH ×2 (09:12→21:26)
[2017-12-19] MEDS: ENOXAPARIN 40 MG/0.4 ML (LOVENOX) SYR SQ SCH (09:12)
[2017-12-19] MEDS: AZITHROMYCIN 250 MG TAB (ZITHROMAX) PO SCH (09:12)
[2017-12-19] MEDS ORDERED: MELA3TAB PO (09:21)
[2017-12-19] MEDS ORDERED: FOLI1TAB24 PO (09:21)
[2017-12-19] MEDS ORDERED: FINA5TAB6 PO (09:21)
[2017-12-19] MEDS ORDERED: TRAZ-190 PO (09:21)
[2017-12-19] MEDS ORDERED: SERT50TA9 PO (09:21)
[2017-12-19] MEDS ORDERED: CARV12.53 PO (09:21)
[2017-12-19] MEDS ORDERED: RIVA1PAT3 TD (09:21)
[2017-12-19] MEDS ORDERED: ACET-2267 PO (09:21)
[2017-12-19] MEDS ORDERED: DOCU100C37 PO (09:21)
[2017-12-19] MEDS ORDERED: TAMS0.4C2 PO (09:21)
[2017-12-19] MEDS ORDERED: MEMA10TA22 PO (09:21)
[2017-12-19] MEDS ORDERED: CALC1TAB94 PO (09:21)
[2017-12-19] MEDS ORDERED: SIMV20TA3 PO (09:21)
[2017-12-19] MEDS ORDERED: PANT40TA2 PO (09:21)
[2017-12-19] MEDS ORDERED: POLY17PO6 PO (09:21)
[2017-12-19] MEDS ORDERED: PRED2.5T PO (09:21)
[2017-12-19] MEDS ORDERED: AMLO10TA6 PO (09:21)
[2017-12-19] MEDS ORDERED: FERR325T18 PO (09:21)
[2017-12-19] MEDS ORDERED: BUDE10.2 IH (09:25)
[2017-12-19] MEDS ORDERED: DEXT15SY8 PO (09:25)
[2017-12-19] MEDS ORDERED: [UNRECOGNIZED DRUG - SUPPLY] OU (09:25)
--- NOTE | 2017-12-19 12:59 | Physical Therapy Evaluation ---
PT Evaluation-General Medical Diagnosis Admission Date Dec 16, 2017 at 21:47 Medical Diagnosis: pneumonia Onset Date: Dec 16, 2017 Therapy Diagnosis Therapy Diagnosis: generalized weakness/debility Height/Weight Height (Feet): 5 Height (Inches): 11.00 Weight (Pounds): 191 Weight (Ounces): 3.0 Precautions Precautions/Isolations: Fall Prevention, Standard Precautions Weight Bear Status Right Lower Extremity: Right Weight Bearing/Tolerated Left Lower Extremity: Left Weight Bearing/Tolerated Referral Physician: Elder Reason for Referral: Evaluation/Treatment Medical History Pertinent Medical History: Dementia, HTN, Renal Insufficiency Current History ER x 2 attempts with fever and cough Reviewed History: Yes Social History Home: Custodial Prior/[facility] Prior Level of Function Functional Cross Measure 0=Not Assessed/NA 4=Minimal Assistance 1=Total Assistance 5=Supervision or Setup 2=Maximal Assistance 6=Modified Cross 3=Moderate Assistance 7=Complete Cross Bed Mobility: 7 Transfers (B,C,W/C) (FIM): 7 Gait: 7 PT Evaluation-Current Subjective Patient is very agreeable to participate with PT. Pain Numeric Pain Scale: 0-No Pain Location: No Pain Reported Objective Patient Orientation: Confused Problem Solving: Fair ROM/Strength ROM Lower Extremities bilateral LE WNL Strength Lower Extremities 5/5 grossly bilateral LE Integumentary/Posture Integumentary refer to nursing notes Bladder Incontinence: Yes Posture WFL Neuromuscular (Tone, Coordination, Reflexes) grossly intact Sensory Vision: Functional Hearing: Functional Sensation Right Lower Extremit: Intact Sensation Left Lower Extremity: Intact Transfers Functional Cross Measure 0=Not Assessed/NA 4=Minimal Assistance 1=Total Assistance 5=Supervision or Setup 2=Maximal Assistance 6=Modified Cross 3=Moderate Assistance 7=Complete Cross Transfers (B, C, W/C) (FIM): 6 Scootin Rollin Supine to/from Sit: 6 Sit to/from Stand: 6 Gait Mode of Locomotion: Walk Anticipated Mode of Locomotion: Walk Gait (FIM): 6 Distance (FIM): 3=150 ft Distance: >500' Gait Level of Assist: 6 Gait Assistive Device: FWW Comments/Gait Description with and without FWW without difficulty Balance Sitting Static: Normal Sitting Dynamic: Normal Standing Static: Normal Standing Dynamic: Normal Assessment/Needs 77 y.o. male, will be seen short term by skilled PT to address functional mobility to ensure safe return to [facility] for continued care. Rehab Potential: Fair PT Short Term Goals Short Term Goals Time Frame: Dec 23, 2017 Transfers (B,C,W/C) (FIM): 7 Gait (FIM): 6 Distance (FIM): 3=150 ft Gait Distance Comment: >500' Gait Level of Assist: 6 Gait Assistive Device: None, FWW PT Plan Problem List Problem List: Safety Treatment/Plan Treatment Plan: Continue Plan of Care Treatment Plan: Education, Functional Activity Bassam, Functional Strength, Safety, Therapeutic Exercise, Transfers Treatment Duration: Dec 23, 2017 Frequency: 5 times per week Estimated Hrs Per Day: .25 hour per day Patient and/or Family Agrees t: Yes Time/GCodes Time In: 1057 Time Out: 1118 Total Billed Treatment Time: 21 Total Billed Treatment 1 visit EVMod 21 min G Codes Necessary: GIUSEPPE Benavides PT Dec 19, 2017 12:59
--- NOTE | 2017-12-19 14:14 | Diagnostic Imaging Report ---
PROCEDURE: CT chest without contrast. TECHNIQUE: Multiple contiguous axial images were obtained through the chest without the use of intravenous contrast. INDICATION: Increasing infiltrate. COMPARISON: Correlation is made with chest radiograph from earlier the same day. FINDINGS: No axillary lymphadenopathy is detected. Mediastinal and hilar evaluation is limited without intravenous contrast. No significant abnormality is seen. There are coronary arterial calcifications present. There appears to be trace pericardial fluid. There is also trace right-sided pleural effusion. Significant consolidation in the right upper lobe is identified with air bronchograms, correlating with the chest radiograph abnormality. The area of parenchymal consolidation extends from the right hilum to the pleural surfaces. No other parenchymal opacities are seen. The lower lobes appear to be clear. There is minimal atelectasis or scarring in the lingula. Upper abdomen demonstrates some calcifications in the kidneys which could be vascular. IMPRESSION: Right upper lobe consolidation with air bronchograms as well as trace right pleural effusion. Findings most suggestive of pneumonia. Followup after course of therapy is recommended to confirm clearing. Dictated by: Dictated on workstation # [id number]
--- NOTE | 2017-12-19 14:48 | Occupational Therapy Eval ---
OT Evaluation-General/PLF Medical Diagnosis Admission Date Dec 16, 2017 at 21:47 Medical Diagnosis: pneumonia Onset Date: Dec 16, 2017 Therapy Diagnosis Therapy Diagnosis: Weakness Height/Weight Height (Feet): 5 Height (Inches): 11.00 Weight (Pounds): 191 Weight (Ounces): 3.0 Precautions Precautions/Isolations: Fall Prevention, Standard Precautions Safety Interventions: Bed Exit Alarm, Reorient-PRN Weight Bear Status Weight Bearing Restriction: Weight Bearing/Tolerated Referral Physician: Elder Referral Reason: Activity Tolerance, Self Care, Evaluation/Treatment, Strengthening/ROM Medical History Pertinent Medical History: COPD, Dementia, GERD, HTN, Renal Insufficiency Additional Medical History vascular sx, anxiety, bilateral carotid endarterectomy, colonoscopy, left ureteroscopy Current History Pt. is from [facility]. Reviewed History: Yes Social History Home: Retirement Entry Into Home: Level Entry ADL-Prior Level of Function ADL PLOF Comments Pt. is unable to state what he was able to do prior to this hospitalization. OT Current Status Subjective Pt. does not report pain. However, with prompting, does report that he does not think his lasagna that is in front of him looks good. Appearance Pt. is up in chair. Lunch tray has come and is in front of pt. Mental Status/Objective Patient Orientation: Confused Memory: 3 (Pt. is able to state that he is in [place] and that he is in the hospital. Unable to state prior level otherwise.) Current Hand Dominance: Right Upper Extremity ROM Pt. is unable to follow cues for ROM testing. Upper Extremity Strength Pt. is asked to squeeze OT hands. Pt. squeezes as hard as he can (4/5), and brings OT's hand to mouth and kisses it. Starts to laugh and is unable to follow cues for further testing. ADL-Treatment Functional [place] Measure 0=Not Assessed/NA 4=Minimal Assistance 1=Total Assistance 5=Supervision or Setup 2=Maximal Assistance 6=Modified [place] 3=Moderate Assistance 7=Complete IndependenceIRFPAI Quality Coding Scale 6 Independent with activity with or without an assistive device 5 Patient requires set up or clean up by helper. Patient completes activity by themselves 4 Supervision or touching assist (CGA). Alda provide cues , steadying assist 3 The helper provides less than half the effort to complete the activity 2 The helper provides more than half the effort to complete the activity 1 Dependent. The helper does all the effort to complete an activity 7 Patient refused to complete or attempt activity 9 The patient did not perform the activity before the current illness or injury 88 Not attempted due to Medical conditions or safety concerns Eating (FIM): 4 (Please see note) Pt. is up in chair. Is able to scoot self to back of chair with prompting. Unable to practice doffing/donning socks. Food in front of pt. Pt. states that he doesn't like his lasagna. States that he will eat everything else, but seems to have difficulty motor planning on what to do first. Will pick and shovel man his fork but then becomes distracted and wont eat. Looks at food and talks about it. Asks to have a peanut butter and jelly sandwich. OT calls food line and nursing okays for pt. to have this. With max prompting, pt. does fork a peach slice and puts it into mouth. Continues to have difficulty so OT feeds pt. several green beans. Pt. states that he wants his roll, but continues to hold it in his hand and does not eat it. OT puts butter on it and pt. does take on bite. Pt. is encouraged and reminded to drink his ice tea. Nikolski comes and pt. does pick this up and continues to eat it. All needs are met in room. Pt. is poor historian. Becomes teary at one point when asked about what he did for a living. Is unable to state why he is upset. Education OT Patient Education: Correct positioning, Modified ADL techniques, Progress toward Goal/Update tx plan, Purpose of tx/functional activities, Reviewed precautions, Rehab process, Transfer techniques Teaching Recipient: Patient Teaching Methods: Demonstration Response to Teaching: Verbalize Understanding, Return Demonstration OT Short Term Goals Short Term Goals Transfers (B,C,W/C) (FIM): 7 1=Demonstrate adherence to instructed precautions during ADL tasks. 2=Patient will verbalize/demonstrate understanding of assistive devices/ modifications for ADL. 3=Patient will improve strength/tolerance for activity to enable patient to perform ADL's. OT Real Estate Professional Goals Intermediate Goals Time Frame: Dec 26, 2017 Eating (FIM): 5 Grooming(FIM): 5 Transfers (B,C,W/C) (FIM): 5 Additional Goals: 1-Demonstrate ADL Tasks, 2-Verbalize Understanding, 3- ImproveStrength/[place]am 1=Demonstrate adherence to instructed precautions during ADL tasks. 2=Patient will verbalize/demonstrate understanding of assistive devices/ modifications for ADL. 3=Patient will improve strength/tolerance for activity to enable patient to perform ADL's. OT Education/Plan Problem List/Assessment Assessment: Decreased Activ Tolerance, Decreased Safety Aware, Dependent Transfers, Impaired Bed Mobility, Impaired Cognition, Impaired I ADL's, Impaired Self-Care Skills Discharge Recommendations Plan/Recommendations: Continue POC Therapy D/C Recommendations: 24 hr Supervision Treatment Plan/Plan of Care Treatment,Training & Education: Yes Patient would benefit from OT for education, treatment and training to promote independence in ADL's, mobility, safety and/or upper extremity function for ADL' s. Plan of Care: ADL Retraining, Functional Mobility, UE Funct Exercise/Act Treatment Duration: Dec 26, 2017 Frequency: 5 times per week Estimated Hrs Per Day: .25 hour per day Agreement: Yes Rehab Potential: Guarded Time/GCodes Start Time: 13:00 Stop Time: 13:30 Total Time Billed (hr/min): 30 Billed Treatment Time 1, EVH x 15minutes, ADL x 15minutes NELIDA MAY OT Dec 19, 2017 14:48
[2017-12-19] MEDS: SERTRALINE 50 MG (ZOLOFT) TABLET PO SCH (15:22)
[2017-12-19] MEDS: RT-ADVAIR HFA 115/21 MCG PER PUFF IH SCH (18:55)
[2017-12-19] MEDS ORDERED: TAMSULOSIN 0.4 MG (FLOMAX) CAP PO SCH (20:00)
[2017-12-19] MEDS ORDERED: MELATONIN 3 MG TABLET PO SCH (21:00)
[2017-12-19] MEDS ORDERED: NON-FORMULARY MEDICATION 1 EA EA (Budesonide/Formoterol Fumarate (Symbicort 160-4.5 Mcg In IH SCH (21:00)
[2017-12-19] MEDS ORDERED: traZODone 100 MG (DESYREL) TAB PO SCH (21:00)
[2017-12-19] MEDS ORDERED: NON-FORMULARY MEDICATION 1 EA EA (Melatonin 3 MG) PO SCH (21:00)
[2017-12-19] MEDS ORDERED: SIMvastatin 20 MG (ZOCOR) TAB PO SCH (21:00)
[2017-12-19] MEDS: cefTRIAXone 1 GM/NS 50 ML IVPB IV SCH ×2 (21:27)
[2017-12-20 00:44] VITALS: BP 138/64
[2017-12-20 04:08] VITALS: BP 133/65
[2017-12-20] MEDS: CATHETER FLUSH 10 ML SYR IV SCH (06:00)
[2017-12-20] MEDS: ENOXAPARIN 40 MG/0.4 ML (LOVENOX) SYR SQ SCH (06:19)
[2017-12-20] MEDS ORDERED: predniSONE 5 MG TAB PO SCH (07:00)
[2017-12-20] MEDS: RT-ALBUTEROL SULF 2.5 MG/3 ML PRE-MIX VIAL INH SCH (07:30)
[2017-12-20] MEDS: RT-ADVAIR HFA 115/21 MCG PER PUFF IH SCH (07:30)
[2017-12-20] MEDS ORDERED: CEPH-507 PO (07:52)
--- NOTE | 2017-12-20 07:55 | Discharge Inst-Simple/Standard ---
Discharge Inst-Standard Discharge Medications New, Converted or Re-Newed RX: Transmitted to Pharmacy Patient Instructions/Follow Up Plan of Care/Instructions/FU: Please continue to take your medications as written. Please follow up with Dr Gaxiola in the next week. Activity as Tolerated: Yes Discharge Diet: No Restrictions Return to The Hospital For: Cough, chest pain, shortness of breath, worsening fever, confusion, if you feel you are getting worse. BRENDON BARNES MD Dec 20, 2017 07:55
[2017-12-20] MEDS ORDERED: EXELON PATCH REMOVAL TP SCH (08:59)
[2017-12-20] MEDS ORDERED: RIVASTIGMINE 9.5 MG PATCH (EXELON) NON-FORMULARY TD SCH (09:00)
[2017-12-20] MEDS ORDERED: FINASTERIDE (PROSCAR) 5 MG TAB PO SCH (09:00)
[2017-12-20] MEDS ORDERED: PREDNISONE 2.5 MG PO SCH (09:00)
[2017-12-20] MEDS: AZITHROMYCIN 250 MG TAB (ZITHROMAX) PO SCH (09:06)
[2017-12-20] MEDS: CARVEDILOL 12.5 MG (COREG) TABLET PO SCH (09:06)
[2017-12-20] MEDS: amLODIPine 10 MG (NORVASC) TAB PO SCH (09:06)
[2017-12-20] MEDS: MEMANTINE 10 MG (NAMENDA) TABLET PO SCH (09:06)
[2017-12-20] MEDS: SERTRALINE 50 MG (ZOLOFT) TABLET PO SCH (09:06)
--- NOTE | 2017-12-20 09:08 | Pulmonary Progress Note ---
Subjective Time Seen by Provider: 09:08 Subjective/Events-last exam Pt appears to be improving. No complications noted. Sepsis Event Evaluation Height, Weight, BMI Height: 5'11.00" Weight: 191lbs. 3.0oz. 86.365983iu; 26.7 BMI Method:Stated Exam Exam Vital Signs Date Time Temp Pulse Resp B/P (MAP) Pulse Ox O2 Delivery O2 Flow Rate FiO2 12/20/17 07:30 90 Nasal Cannula 1.00 12/20/17 04:08 98.4 78 18 133/65 (87) 95 Room Air 12/20/17 00:44 98.1 77 19 138/64 (88) 94 Room Air 12/19/17 20:00 Nasal Cannula 2.00 12/19/17 19:20 99.6 90 18 156/73 (100) 94 Room Air 12/19/17 18:57 92 Nasal Cannula 1.00 12/19/17 15:35 99.5 81 18 131/70 (90) 96 Room Air 12/19/17 11:43 99.5 83 20 117/56 (76) 93 Room Air I & O 12/20/17 07:00 Intake Total 1100 ml Balance 1100 ml Height & Weight Height: 5'11.00" Weight: 191lbs. 3.0oz. 86.295792sx; 26.7 BMI Method:Stated General Appearance: No Apparent Distress, WD/WN HEENT: PERRL/EOMI, Moist Mucous Membranes Neck: Non Tender, Supple Respiratory: Lungs Clear, No Respiratory Distress Cardiovascular: Regular Rate, Rhythm, No Murmur Capillary Refill: Less Than 3 Seconds Extremity: No Calf Tenderness, No Pedal Edema Neurologic/Psychiatric: Alert, Disoriented Skin: Normal Color, Warm/Dry Results Lab Laboratory Tests 12/19/17 07:02 Assessment/Plan Assessment/Plan Pneumonia with atelectasis -Has been on Rocephin and azithromycin since admission -No leukocytosis and fever appears to be slowly improving -CXR reviewed from admission. Today's CXR is pending. -Pt has a hx of tobacco use. Will check CT of chest without contrast r/o mass -Pt is ok for discharge from pulmonary standpoint. I will f/u with him in 2- 3 wks. HE will need a repeat CT of chest in 6-8 wks after discharge to ensure complete resolution of infiltration. Chronic renal failure dementia/debility - from [facility] ZONIA BARKLEY DO Dec 20, 2017 09:08
--- NOTE | 2017-12-20 09:14 | Physical Therapy Daily Note ---
PT Daily Note-Current Subjective Pt sitting up in bed upon arrival. Pt is very confused but agrees to go over Supine Ex in bed before discharge. Pain Location: No Pain Reported Mental Status Patient Orientation: Person, Confused Transfers Functional [place] Measure 0=Not Assessed/NA 4=Minimal Assistance 1=Total Assistance 5=Supervision or Setup 2=Maximal Assistance 6=Modified [place] 3=Moderate Assistance 7=Complete IndependenceIRFPAI Quality Coding Scale 6 Independent with activity with or without an assistive device 5 Patient requires set up or clean up by helper. Patient completes activity by themselves 4 Supervision or touching assist (CGA). Morgan provide cues , steadying assist 3 The helper provides less than half the effort to complete the activity 2 The helper provides more than half the effort to complete the activity 1 Dependent. The helper does all the effort to complete an activity 7 Patient refused to complete or attempt activity 9 The patient did not perform the activity before the current illness or injury 88 Not attempted due to Medical conditions or safety concerns Weight Bearing Right Lower Extremity: Right Weight Bearing/Tolerated Left Lower Extremity: Left Weight Bearing/Tolerated Exercises Supine Ex: Ankle pumps, Quad Set, Heel Slides, Straight leg raise, Hip abd/add Supine Reps: 15 Treatments Pt is confused but VENEER TAPER gives VC & Phy. Cues to complete Supien Ex in bed. Dr Montilla checks on pt. Nurse arrives at end of tx. Pt given morning meds and has all needs met. Assessment Current Status: Fair Progress Pt needs redirection due to confusion. PT Short Term Goals Short Term Goals Time Frame: Dec 23, 2017 Transfers (B,C,W/C) (FIM): 7 Gait (FIM): 6 Distance (FIM): 3=150 ft Gait Distance Comment: >500' Gait Level of Assist: 6 Gait Assistive Device: None, FWW PT Plan Problem List Problem List: Activity Tolerance, Functional Strength, Safety Treatment/Plan Treatment Plan: Continue Plan of Care Treatment Plan: Education, Functional Activity [place], Functional Strength, Safety, Therapeutic Exercise, Transfers Treatment Duration: Dec 23, 2017 Frequency: 5 times per week Estimated Hrs Per Day: .25 hour per day Patient and/or Family Agrees t: Yes Safety Risks/Education Patient Education: Correct Positioning, Safety Issues Teaching Recipient: Patient Teaching Methods: Demonstration, Discussion Response to Teaching: Reinforcement Needed Time/GCodes Time In: 855 Time Out: 910 Total Billed Treatment Time: 15 Total Billed Treatment 1, EX (15m) G Codes Necessary: SHANNA Carbajal PTA Dec 20, 2017 09:14
[2017-12-20 12:00] VITALS: BP 96/60
[2017-12-20 15:16] VITALS: BP 96/60
--- NOTE | 2018-01-05 14:41 | Discharge Summary-Hospitalist ---
Diagnosis/Chief Complaint Date of Admission Dec 16, 2017 at 21:47 Date of Discharge Dec 20, 2017 at 14:20 Discharge Date: Dec 20, 2017 Admission Diagnosis Pneumonia Discharge Diagnosis (1) Pneumonia Status: Acute Assessment & Plan: Treated with Rocephin and Azithromycin Pulm consulted MAT protocol titrate oxygen to keep sats >90 (2) Essential (primary) hypertension Status: Chronic Assessment & Plan: Mildly elevated for age- trend (3) Chronic renal insufficiency Status: Acute Assessment & Plan: Creatinine improved today's labs pending Trend (4) Dementia Status: Acute Assessment & Plan: At baseline Attempt to decrease overnight disturbances Discharge Summary Procedures/Consulations Dr Montilla- Hellen Discharge Physical Exam Allergies: Coded Allergies: acetaminophen (Unverified Allergy, Unknown, 07/28/14) hydrocodone (Unverified Allergy, Unknown, 07/28/14) oxycodone (Unverified Allergy, Unknown, 07/28/14) General Appearance: No Apparent Distress, WD/WN Cardiovascular: Regular Rate, Rhythm, No Murmur Neurologic/Psychiatric: Alert, Disoriented Hospital Course Pt was admitted for pneumonia. He responded slowly to IV antibiotics but improved daily. Pulm was consulted for assistance as he recovered so slowly. He ultimately was able to discharged and had a relatively uneventful hospital stay. he is to complete antibiotics as discharge. Labs (last 24 hrs) Microbiology 12/16/17 Blood Culture - Final, Complete No growth Patient resulted labs reviewed. Imaging: Reviewed Imaging Report Discussion & Recommendations Discharge Planning: >30 minutes discharge planning Discharge Home Medications: Active Scripts Active Keflex (Cephalexin) 500 Mg Capsule 500 Mg PO BID Reported Tussin Cough (Dextromethorphan HBr) 15 Mg/5 Ml Syrup PO UD PRN [Sensitive Eyes] 1 Drop OU UD PRN Symbicort 160-4.5 Mcg Inhaler (Budesonide/Formoterol Fumarate) 10.2 Gm Hfa.aer.ad 2 Puff IH BID Tylenol Extra Strength (Acetaminophen) 500 Mg Tablet 1,000 Mg PO Q8H PRN Sertraline HCl 50 Mg Tablet 75 Mg PO DAILY TAKES 1 & 1/2 (50MG) TABLET Trazodone HCl 100 Mg Tablet 100 Mg PO HS Protonix (Pantoprazole Sodium) 40 Mg Tablet.dr 40 Mg PO DAILY Amlodipine Besylate 10 Mg Tablet 10 Mg PO DAILY HOLD SBP<100 Melatonin 3 Mg Tablet 3 Mg PO HS Miralax (Polyethylene Glycol 3350) 17 Gm Powd.pack 17 Gm PO BID Exelon (Rivastigmine) 9.5 Mg Patch 9.5 Mg TD DAILY Docusate Sodium 100 Mg Capsule 100 Mg PO BID Prednisone 2.5 Mg Tablet 2.5 Mg PO DAILY Tamsulosin HCl 0.4 Mg Cap.er.24h 0.4 Mg PO 2000 Ferrous Sulfate 325 Mg Tablet 325 Mg PO DAILY Folic Acid 1 Mg Tablet 1 Mg PO DAILY Finasteride 5 Mg Tablet 5 Mg PO DAILY Simvastatin 20 Mg Tablet 20 Mg PO HS Memantine HCl 10 Mg Tablet 10 Mg PO BID Calcium 600 + Vit D 400 Tablet (Calcium Carbonate/Vitamin D3) 1 Each Tablet 1 Tab PO DAILY Carvedilol 12.5 Mg Tablet 12.5 Mg PO BID HOLD IF SBP<100 OR PULSE <60 Instructions to patient/family Please see electronic discharge instructions given to patient. Clinical Quality Measures DVT/VTE Risk/Contraindication: Risk Factor Score Per Nursin RFS Level Per Nursing on Admit: 3=High Problem Qualifiers (1) Pneumonia: Pneumonia type: due to unspecified organism Laterality: right (2) Chronic renal insufficiency: Chronic kidney disease stage: stage 3 (moderate) Qualified Codes: N18.3 - Chronic kidney disease, stage 3 (moderate) (3) Dementia: Dementia type: unspecified type Dementia behavioral disturbance: without behavioral disturbance Qualified Codes: F03.90 - Unspecified dementia without behavioral disturbance BRENDON BARNES MD Jan 05, 2018 14:41
== END 2017-12-20 14:20 | DRG 194 ==
LOC: EDUNIT# 20:29 → ER 20:31 → 4TH 21:47
PROVIDERS: ADMIT Family Medicine; ATTEND Family Medicine
DX: J18.9 Pneumonia, unspecified organism (principal); J44.0 Chronic obstructive pulmonary disease with (acute) lower respiratory infection; J98.11 Atelectasis; I12.9 Hypertensive chronic kidney disease with stage 1 through stage 4 chronic kidney disease, or unspecified chronic kidney disease; N18.3 Chronic kidney disease, stage 3 (moderate); E78.00 Pure hypercholesterolemia, unspecified; F03.90 Unspecified dementia, unspecified severity, without behavioral disturbance, psychotic disturbance, mood disturbance, and anxiety; G47.9 Sleep disorder, unspecified; Z66 Do not resuscitate; F41.9 Anxiety disorder, unspecified; F32.9 Major depressive disorder, single episode, unspecified; K21.9 Gastro-esophageal reflux disease without esophagitis; Z87.891 Personal history of nicotine dependence
CPT/HCPCS: 36415; 71045; 71250; 80048; 80053; 81000; 82150; 83605; 83690; 85025; 87040; 93041; 94640; 94664; 94760; 94761; 96361; 96365

== ENCOUNTER → 2018-02-19 | Outpatient (CLI) | payer MEDICARE ==
[~2018-02-19] MED LIST changes: +ACET-2267 PO; +AMLO10TA6 PO; +BUDE10.2 IH; +CALC1TAB94 PO; +CARV12.53 PO; +CEPH-507 PO; +DEXT15SY8 PO; +DOCU100C37 PO; +FERR325T18 PO; +MELA3TAB PO; +MEMA10TA22 PO; +PANT40TA2 PO; +POLY17PO6 PO; +PRED2.5T PO; +RIVA1PAT3 TD; +SERT50TA9 PO; +TRAZ-190 PO; +[UNRECOGNIZED DRUG - SUPPLY] OU
--- NOTE | 2018-02-19 11:09 | Diagnostic Imaging Report ---
PROCEDURE: CT chest without contrast. TECHNIQUE: Multiple contiguous axial images were obtained through the chest without the use of intravenous contrast. INDICATION: Pneumonia. COMPARISON: Comparison is made with recent CT chest from 12/19/2017. FINDINGS: No axillary, hilar, or mediastinal lymphadenopathy is seen. Coronary arterial calcifications are again noted. No pericardial fluid is detected. Small right-sided pleural effusion has resolved. Extensive consolidation with air bronchograms in the right upper lobe has resolved. Only very minimal residual atelectasis in the right upper lobe is present. There is a tiny nodule in the right upper lobe measuring 3 mm, image 27, series 2. Otherwise, the lungs appear to be clear. Upper abdomen does show small stones within the gallbladder. IMPRESSION: Resolution of right upper lobe pneumonia and right-sided pleural effusion when compared with prior CT from two months earlier. There is a micronodule in the right upper lobe, indeterminate, and followup CT chest in 6-12 months could be performed. Dictated by: Dictated on workstation # [id number]
== END ==
LOC: RAD 10:30
PROVIDERS: ATTEND Nurse Practitioner Family
DX: J90 Pleural effusion, not elsewhere classified (principal); J30.2 Other seasonal allergic rhinitis
CPT/HCPCS: 71250

== ENCOUNTER 2018-06-16 05:23 | Inpatient (IN) | payer MEDICARE ==
[~2018-06-16] VITALS: Ht 180.3 cm; Wt 84.4 kg
[~2018-06-16 05:23] MED LIST changes: -AMLO10TA6 PO; +AMLO10TA7 PO
[2018-06-16] MEDS ORDERED: NS IV 1000 ML 1,000 ML IV SCH ×2 (05:35→05:49)
--- NOTE | 2018-06-16 05:43 | ED Respiratory ---
General Chief Complaint: Respiratory Problems Stated Complaint: SOB Nursing Triage Note: brought in by [facility] from [facility]. low spo2/fever. Source: patient, EMS, halfway records, old records Exam Limitations: clinical condition (baseline dementia) (ILIANA MALDONADO) History of Present Illness Date Seen by Provider: Jun 16, 2018 Time Seen by Provider: 05:28 Initial Comments The patient presents to ER by EMS with chief complaint that he was dealing with fever Tmax of 100.8 yesterday since about 9:00 in the morning. He received a couple doses of Tylenol which she responded well to. EMS reports no fever when they arrived. He also is having shortness of breath and an oxygen saturation in the 70s. He does not use oxygen at baseline but does have a history of steroid- dependent COPD at 2.5 mg prednisone a day. He's had a dry cough. He does not smoke anymore. Denies recreational drug use and only rarely drinks alcohol. He denies any pain nausea or sweats right now. Staff put him on 1 L of oxygen which brought him up to 82%. When EMS arrived he was at 95% on 1 L so they gave him a DuoNeb which brought him up to 98-99%. He is coming from [facility]. Staff reports the patient's been acting weak and tired for the past 1-2 days. He typically ambulates with a walker. (ILIANA MALDONADO) Allergies and Home Medications Allergies Coded Allergies: hydrocodone (Unverified Allergy, Unknown, 07/28/14) oxycodone (Unverified Allergy, Unknown, 07/28/14) Home Medications Acetaminophen 500 Mg Tablet, 1,000 MG PO Q8H PRN for PAIN-MILD OR TEMPATURE, ( Reported) Amlodipine Besylate 10 Mg Tablet, 10 MG PO DAILY, (Reported) HOLD SBP<100 Budesonide/Formoterol Fumarate 10.2 Gm Hfa.aer.ad, 2 PUFF IH BID, (Reported) Calcium Carbonate/Vitamin D3 1 Each Tablet, 1 TAB PO DAILY, (Reported) Carvedilol 12.5 Mg Tablet, 12.5 MG PO BID, (Reported) HOLD IF SBP<100 OR PULSE <60 Dextromethorphan HBr 15 Mg/5 Ml Syrup, PO UD PRN for COUGH, (Reported) Docusate Sodium 100 Mg Capsule, 100 MG PO BID, (Reported) Ferrous Sulfate 325 Mg Tablet, 325 MG PO DAILY, (Reported) Finasteride 5 Mg Tablet, 5 MG PO DAILY, (Reported) Folic Acid 1 Mg Tablet, 1 MG PO DAILY, (Reported) Melatonin 3 Mg Tablet, 3 MG PO HS, (Reported) Memantine HCl 10 Mg Tablet, 10 MG PO BID, (Reported) Pantoprazole Sodium 40 Mg Tablet.dr, 40 MG PO DAILY, (Reported) Polyethylene Glycol 3350 17 Gm Powd.pack, 17 GM PO BID, (Reported) Prednisone 2.5 Mg Tablet, 2.5 MG PO DAILY, (Reported) Rivastigmine 9.5 Mg Patch, 9.5 MG TD DAILY, (Reported) Sertraline HCl 50 Mg Tablet, 75 MG PO DAILY, (Reported) TAKES 1 & 1/2 (50MG) TABLET Simvastatin 20 Mg Tablet, 20 MG PO HS, (Reported) Tamsulosin HCl 0.4 Mg Cap.er.24h, 0.4 MG PO 2000, (Reported) Trazodone HCl 100 Mg Tablet, 100 MG PO HS, (Reported) [Sensitive Eyes] , 1 DROP OU UD PRN for DRY EYES, (Reported) Patient Home Medication List Home Medication List Reviewed: Yes (ILIANA MALDONADO) Review of Systems Review of Systems Constitutional: chills, fever, malaise, weakness EENTM: No ear discharge, No ear pain Respiratory: cough; No phlegm; short of breath, wheezing Cardiovascular: No chest pain, No edema, No palpitations Gastrointestinal: No abdominal pain, No constipation, No diarrhea, No nausea Genitourinary: No discharge, No dysuria Musculoskeletal: No back pain, No joint pain (ILIANA MALDONADO) Past Orrqtue-Nradwb-Jbjdef Hx Patient Social History Alcohol Use: Rarely Uses Recreational Drug Use: No Smoking Status: Former Smoker Type Used: Cigarettes Former Smoker, Quit: Apr 17, 1986 2nd Hand Smoke Exposure: No Recent Foreign Travel: No Contact w/Someone Who Travel: No Recent Infectious Disease Expo: No Recent Hopitalizations: No (ILIANA MALDONADO) Immunizations Up To Date Tetanus Booster (TDap): Less than 5yrs (ILIANA MALDONADO) Seasonal Allergies Seasonal Allergies: No (ILIANA MALDONADO) Past Medical History Surgeries: Yes Abdominal, Bladder Surgery, Eye Surgery, Tonsillectomy, Vascular Surgery Respiratory: Yes (PCP PNEUMONIA) Pneumonia Cardiac: Yes High Cholesterol, Hypertension Neurological: Yes Dementia Genitourinary: Yes Benign Prostatic Hyperpl, Prostate Problems Gastrointestinal: Yes Abdominal Hernia, Gastroesophageal Reflux, Chronic Constipation Musculoskeletal: Yes Arthritis Endocrine: Yes HEENT: Yes Cataract Cancer: No Psychosocial: Yes Sleep Difficulties, Anxiety, Depression Integumentary: No Blood Disorders: No Adverse Reaction/Blood Tranf: No (ILIANA MALDONADO) Family Medical History Alzheimer's disease 19 MOTHER, Diabetes mellitus 19 FATHER, , Age:60 years and older Myocardial infarction 19 FATHER, , Age:60 years and older Physical Exam Vital Signs - First Documented 06/16/18 06/16/18 05:25 05:54 Temp 98.5 Pulse 64 Resp 18 B/P (MAP) 115/70 (85) Pulse Ox 95 O2 Delivery Room Air O2 Flow Rate 3.00 (JEFRY KYLE MD) Capillary Refill : Less Than 3 Seconds (ILIANA MALDONADO) Height: 5'11.00" Weight: 190lbs. 0oz. 86.663096du; 26.7 BMI Method:Stated General Appearance: WD/WN, no apparent distress Eyes: Bilateral Eye Normal Inspection, Bilateral Eye PERRL, Bilateral Eye EOMI HEENT: PERRL/EOMI, normal ENT inspection, TMs normal, pharynx normal Neck: non-tender, full range of motion, supple, normal inspection Respiratory: chest non-tender, lungs clear, normal breath sounds, no accessory muscle use, respiratory distress (mild), decreased breath sounds; No crackles Cardiovascular: normal peripheral pulses, regular rate, rhythm, no edema Gastrointestinal: normal bowel sounds, non tender, soft, no organomegaly Extremities: no pedal edema, normal capillary refill Neurologic/Psychiatric: alert, normal mood/affect, other (oriented to person and place but not time or situation.) Skin: normal color, warm/dry (ILIANA MALDONADO) Progress/Results/Core Measures Suspected Sepsis Recent Fever Within 48 Hours: Yes Infection Criteria Present: Suspected New Infection New/Unexplained Altered Menta: No Sepsis Screen: No Definite Risk SIRS Temperature:98.5 Pulse: 64 Respiratory Rate: 18 Laboratory Tests 06/16/18 05:30: White Blood Count 7.2 Blood Pressure 115 /70 Mean: 85 Laboratory Tests 06/16/18 05:30: Platelet Count 111L (ILIANA MALDONADO) Results/Orders Lab Results Laboratory Tests Test 06/16/18 05:30 Range/Units White Blood Count 7.2 4.3-11.0 10^3/uL Red Blood Count 3.49 L 4.35-5.85 10^6/uL Hemoglobin 10.9 L 13.3-17.7 G/DL Hematocrit 33 L 40-54 % Mean Corpuscular Volume 94 80-99 FL Mean Corpuscular Hemoglobin 31 25-34 PG Mean Corpuscular Hemoglobin Concent 33 32-36 G/DL Red Cell Distribution Width 13.4 10.0-14.5 % Platelet Count 111 L 130-400 10^3/uL Mean Platelet Volume 10.6 H 7.4-10.4 FL Neutrophils (%) (Auto) 69 42-75 % Lymphocytes (%) (Auto) 18 12-44 % Monocytes (%) (Auto) 8 0-12 % Eosinophils (%) (Auto) 4 0-10 % Basophils (%) (Auto) 0 0-10 % Neutrophils # (Auto) 5.0 1.8-7.8 X 10^3 Lymphocytes # (Auto) 1.3 1.0-4.0 X 10^3 Monocytes # (Auto) 0.6 0.0-1.0 X 10^3 Eosinophils # (Auto) 0.3 0.0-0.3 10^3/uL Basophils # (Auto) 0.0 0.0-0.1 10^3/uL Sodium Level 139 135-145 MMOL/L Potassium Level 4.2 3.6-5.0 MMOL/L Chloride Level 106 98-107 MMOL/L Carbon Dioxide Level 25 21-32 MMOL/L Anion Gap 8 5-14 MMOL/L Blood Urea Nitrogen 34 H 7-18 MG/DL Creatinine 2.07 H 0.60-1.30 MG/DL Estimat Glomerular Filtration Rate 31 BUN/Creatinine Ratio 16 Glucose Level 132 H 70-105 MG/DL Calcium Level 9.2 8.5-10.1 MG/DL Corrected Calcium 9.6 8.5-10.1 MG/DL Total Bilirubin 0.4 0.1-1.0 MG/DL Aspartate Amino Transf (AST/SGOT) 18 5-34 U/L Alanine Aminotransferase (ALT/SGPT) 11 0-55 U/L Alkaline Phosphatase 36 L 40-136 U/L C-Reactive Protein High Sensitivity 5.97 H 0.00-0.50 MG/DL Total Protein 6.5 6.4-8.2 GM/DL Albumin 3.5 3.2-4.5 GM/DL (JEFRY KYLE MD) Micro Results Microbiology 06/16/18 Influenza Types A,B Antigen (LEANNE) - Final, Complete (JEFRY KYLE MD) My Orders Orders - JEFRY KYLE MD Sputum Culture (06/16/18 07:13) Methylprednisolone Sod Succ (Solu-Medrol (06/16/18 07:15) (JEFRY KYLE MD) Medications Given in ED Current Medications Medications Dose Ordered Sig/Maddy Route Start Time Stop Time Status Last Admin Dose Admin Cefepime HCl 1000 mg/Sterile Water 10 ml @ 200 mls/hr ONCE ONCE IV 06/16/18 05:45 06/16/18 05:47 DC 06/16/18 06:14 200 MLS/HR (JEFRY KYLE MD) Vital Signs/I&O 06/16/18 06/16/18 05:25 05:54 Temp 98.5 Pulse 64 Resp 18 B/P (MAP) 115/70 (85) Pulse Ox 95 94 O2 Delivery Room Air Nasal Cannula O2 Flow Rate 3.00 (JEFRY KYLE MD) Vital Signs/I&O Capillary Refill : Less Than 3 Seconds (ILIANA MALDONADO) Blood Pressure Mean: 85 Progress Note : Time: 05:44 Progress Note The patient's on Coreg which may blunt his cardiac response but his heart rates in the low 60s. Oxygenation was about 92-94% on room air. We'll let him finish the DuoNeb did EMS started him on but he does not have a lot of wheezing auscultated. We'll cover with cefepime get a flu swab blood cultures sputum culture labs. He doesn't meet septic criteria as he is not tachypneic. He does have a history of documented fever yesterday. He has a long-standing history of COPD. He does not appear to be in a lot of distress at this point so we will look for pneumonia versus more likely a COPD exacerbation from a virus. (ILIANA MALDONADO) Progress Note : Progress Note The patient's laboratory and radiographic evaluation other than an elevated CRP was unremarkable. Chest x-ray was clear. Auscultation of the patient's chest demonstrate rales in the left base. Dr. Maldonado had initiated cefepime IV. I covered the patient's COPD with 125 mg Solu-Medrol IV. I discussed the patient's presentation with his caregiver, a former nurse Dr. Ireland. She felt the patient should be hospitalized and observed as he devolves into pneumonia easily. (JEFRY KYLE MD) Diagnostic Imaging Diagonstic Imaging: Xray Plain Films/CT/US/NM/MRI: chest (one view) Comments Perihilar, interstitial, chronic markings versus start of a small right mid lung infiltrate. Reviewed: Reviewed by Me (ILIANA MALDONADO) Transfer of Care Transfer of Care Time: 06:00 Care transferred to: Dr. Kyle (ILIANA MALDONADO) Departure Communication (Admissions) Time/Spoke to Admitting Phy: 07:26 Dr. Friedman (JEFRY KYLE MD) Impression Primary Impression: COPD exacerbation Disposition: 09 ADMITTED INPATIENT Condition: Improved Admissions Decision to Admit Reason: Admit from ER (General) Decision to Admit/Date: Jun 16, 2018 Time/Decision to Admit Time: 07:27 (JEFRY KYLE MD) Departure-Patient Inst. Referrals: JAMA ISAACS MD (PCP/Family) Primary Care Physician ILIANA MALDONADO Jun 16, 2018 05:43 JEFRY KYLE MD Jun 16, 2018 07:26
[2018-06-16] MEDS ORDERED: CEFEPIME INJECTION 1,000 MG in WATER (STERILE) FOR INJECTION 10 ML IV ONE (05:45)
[2018-06-16 05:46] LABS: BASOPHILS % (AUTO) 0 % (0-10); EOSINOPHILS # (AUTO) 0.3 10^3/uL (0.0-0.3); EOSINOPHILS % (AUTO) 4 % (0-10); HEMATOCRIT 33 % (40-54); HEMOGLOBIN 10.9 G/DL (13.3-17.7); LYMPHOCYTES # (AUTO) 1.3 X 10^3 (1.0-4.0); LYMPHOCYTES % (AUTO) 18 % (12-44); MEAN CORPUSCULAR HEMOGLOBIN 31 PG (25-34); MEAN CORPUSCULAR HGB CONC 33 G/DL (32-36); MEAN CORPUSCULAR VOLUME 94 FL (80-99); MEAN PLATELET VOLUME 10.6 FL (7.4-10.4); MONOCYTES # (AUTO) 0.6 X 10^3 (0.0-1.0); MONOCYTES % (AUTO) 8 % (0-12); NEUTROPHILS % (AUTO) 69 % (42-75); PLATELET COUNT 111 10^3/uL (130-400); RED CELL DISTRIBUTION WIDTH 13.4 % (10.0-14.5); WHITE BLOOD COUNT 7.2 10^3/uL (4.3-11.0)
[2018-06-16 06:01] LABS: ALBUMIN 3.5 GM/DL (3.2-4.5); BILIRUBIN,TOTAL 0.4 MG/DL (0.1-1.0); CALCIUM 9.2 MG/DL (8.5-10.1); CREATININE SERUM 2.07 MG/DL (0.60-1.30); POTASSIUM 4.2 MMOL/L (3.6-5.0); TOTAL PROTEIN 6.5 GM/DL (6.4-8.2)
--- NOTE | 2018-06-16 06:40 | Diagnostic Imaging Report ---
INDICATION: Cough and congestion. COMPARISON: 12/19/2017. FINDINGS: Visualized lungs are clear. Posterior lower lobes are poorly evaluated by portable radiography. No pleural effusion or pneumothorax. Stable borderline enlargement of the cardiac silhouette. IMPRESSION: No acute process by portable radiography. Dictated by: Dictated on workstation # [id number]
--- NOTE | 2018-06-16 06:53 | NUR ---
0650- o2 turned off at this time.
[2018-06-16] MEDS ORDERED: methylPREDNISolone 125 MG (Solu-MEDROL) VIAL IVP ONE (07:15)
--- NOTE | 2018-06-16 08:45 | NUR ---
BELA RODRIGUES admitted to room 433-1, with an admitting diagnosis of ACUTE EXACERBATION OF COPD, on 06/16/18 from ED via STRETCHER, accompanied by STAFF. BELA RODRIGUES introduced to surroundings, call light, bed controls, phone, TV, temperature control, lights, meal times, smoking policy, visitor policy, side rail policy, bathrooms and showers. Patient Rights given to patient in the handbook. BELA RODRIGUES verbalizes understanding that [facility] is not responsible for the loss or damage to any personal effects or valuables that are kept in the patients posession during their hospitalization. BELA RODRIGUES verbalizes understanding of Interdisciplinary Patient Education. Patient and/or family were informed about the Rapid Response Team and its purpose.
[2018-06-16] MEDS ORDERED: CATHETER FLUSH 10 ML SYR IV PRN (09:00)
[2018-06-16] MEDS ORDERED: RT-ALBUTEROL/IPRATROPIUM 3 ML (DUONEB) VIAL IH PRN (09:00)
[2018-06-16] MEDS ORDERED: CEFEPIME 1,000 MG/SWFI 10 ML IV PUSH IV NR ×2 (09:00)
[2018-06-16] MEDS: NS IV 1000 ML 1,000 ML IV SCH (09:17)
[2018-06-16] MEDS ORDERED: LORA-404 PO (09:57)
--- NOTE | 2018-06-16 11:50 | History & Physical-Hospitalist ---
History of Present Illness HPI/Chief Complaint Pt is a 78yoCM with a PMH of COPD, dementia who presented to the ER from his care facility ([facility]) due to hypoxia. He is a very poor historian and is unable to tell me the details of his illness. He just states he isn't feeling well and then stated " I don't remember anything." All other history is obtained from the records. He was found to be hypoxic in the 70s and was placed on oxygen at the facility. EMS was called and gave him a breathing treatment and his saturations improved to the mid 90s. In the ER he was found to have a a normal chest x-ray and is being admitted for COPD exacerbation. Source: patient Date Seen 06/16/18 Time Seen by a Provider: 11:45 Attending Physician Brendon Friedman MD PCP Flaco Gaxiola MD Referring Physician Date of Admission Jun 16, 2018 at 07:20 Home Medications & Allergies Home Medications Reviewed patient Home Medication Reconciliation performed by pharmacy medication reconciliations medical equipment repair technician and/or nursing. Patients Allergies have been reviewed. Allergies Allergies Coded Allergies hydrocodone (Verified Allergy, Unknown, 06/16/18) lisinopril (Verified Allergy, Unknown, 06/16/18) oxycodone (Verified Allergy, Unknown, 06/16/18) phenytoin (Verified Allergy, Unknown, 06/16/18) simvastatin (Verified Allergy, Unknown, 06/16/18) Past Ttslvht-Ecmqyf-Iabmyo Hx Past Med/Social Hx: Reviewed Nursing Past Med/Soc Hx Patient Social History Employed/Student: retired Alcohol Use: Rarely Uses Number of Drinks Today: 0 Recreational Drug Use: No Smoking Status: Former Smoker Former Smoker, Quit: Apr 17, 1986 Type Used: Cigarettes 2nd Hand Smoke Exposure: No Physical Abuse Screen: No Sexual Abuse: No Recent Foreign Travel: No Contact w/other who traveled: No Recent Hopitalizations: No Recent Infectious Disease Expo: No Immunizations Up To Date Tetanus Booster (TDap): Less than 5yrs Date of Influenza Vaccine: Jan 30, 2019 Seasonal Allergies Seasonal Allergies: No Past Medical History Surgeries: Abdominal, Bladder Surgery, Eye Surgery, Tonsillectomy, Vascular Surgery Respiratory: COPD, Pneumonia Cardiac: High Cholesterol, Hypertension Neurological: Dementia Genitourinary: Benign Prostatic Hyperpl, Prostate Problems Gastrointestinal: Abdominal Hernia, Gastroesophageal Reflux, Chronic Constipation Musculoskeletal: Arthritis HEENT: Cataract Psychosocial: Sleep Difficulties, Anxiety, Depression History of Blood Disorders: No Adverse Reaction to Blood Mclean: No Family History Reviewed Nursing Family Hx Alzheimer's disease 19 MOTHER, Diabetes mellitus 19 FATHER, , Age:60 years and older Myocardial infarction 19 FATHER, , Age:60 years and older Review of Systems ROS-Unable to Obtain: due to dementia Constitutional: see HPI Physical Exam Physical Exam Vital Signs Vital Signs - First Documented 06/16/18 06/16/18 05:25 05:54 Temp 98.5 Pulse 64 Resp 18 B/P (MAP) 115/70 (85) Pulse Ox 95 O2 Delivery Room Air O2 Flow Rate 3.00 Capillary Refill : Less Than 3 Seconds Height, Weight, BMI Height: 5'11.00" Weight: 190lbs. 0oz. 86.001475vf; 26.7 BMI Method:Stated General Appearance: No Apparent Distress, Chronically ill HEENT: PERRL/EOMI, Moist Mucous Membranes; No Scleral Icterus (L), No Scleral Icterus (R) Respiratory: No Accessory Muscle Use, No Respiratory Distress, Wheezing, Other (on oxygen) Cardiovascular: Regular Rate, Rhythm, No Murmur, Normal Peripheral Pulses Gastrointestinal: Normal Bowel Sounds, Soft Extremity: Non Tender, No Calf Tenderness, No Pedal Edema Neurologic/Psychiatric: Alert, Other (oriented to self) Skin: Normal Color, Warm/Dry Results Results/Procedures Labs Laboratory Tests 06/16/18 05:30 Patient resulted labs reviewed. Imaging: Reviewed Imaging Report Assessment/Plan Admission Diagnosis COPD Exacerbation Admission Status: Inpatient Order (span 2 midnights) Reason for Inpatient Admission: Needs IV steroids, new oxygen requirement, will likely take more than two midnights to stabilize for DC Diagnosis/Problems Diagnosis/Problems (1) COPD exacerbation Status: Acute Assessment & Plan: No evidence of infection ( no leukocytosis, fever, CXR clear) Will DC abx Treat with steroids SVNs Titrate oxygen to keep sats >90 ON chronic daily steroids so likely severe COPD Will check procalcitonin (2) Dementia Status: Chronic Assessment & Plan: Pleasantly confused NH RN came to bedside and reportedly he is at his baseline Qualifiers: Dementia type: unspecified type Dementia behavioral disturbance: without behavioral disturbance Qualified Codes: F03.90 - Unspecified dementia without behavioral disturbance (3) Essential (primary) hypertension Status: Chronic Assessment & Plan: Resume home medications Clinical Quality Measures DVT/VTE Risk/Contraindication: Risk Factor Score Per Nursin RFS Level Per Nursing on Admit: 4+=Very High BRENDON FRIEDMAN MD Jun 16, 2018 11:50
[2018-06-16 12:00] VITALS: BP 127/70
[2018-06-16] MEDS ORDERED: BENZONATATE 100 MG (TESSALON) CAPSULE PO PRN (12:00)
[2018-06-16] MEDS ORDERED: MILK OF MAGNESIA 400 MG/5 ML 30 ML UDC PO PRN (12:00)
[2018-06-16] MEDS ORDERED: ANTACID SUSP 30 ML UDC (MYLANTA) PO PRN (12:00)
[2018-06-16] MEDS ORDERED: ACETAMINOPHEN 500 MG TAB (TYLENOL) PO PRN (12:00)
[2018-06-16] MEDS ORDERED: ONDANSETRON 4 MG/2 ML (SDV) Z0FRAN IV PRN (12:00)
[2018-06-16] MEDS ORDERED: LORazepam 0.5 MG (ATIVAN) TABLET PO PRN (12:00)
[2018-06-16] MEDS ORDERED: methylPREDNISolone 125 MG (Solu-MEDROL) VIAL IV SCH (12:00)
[2018-06-16] MEDS ORDERED: MELATONIN 3 MG TABLET PO PRN (12:00)
[2018-06-16] MEDS: methylPREDNISolone 40 MG/ML (Solu-MEDROL) VIAL IV SCH ×2 (12:10→17:36)
[2018-06-16] MEDS ORDERED: ACETAMINOPHEN 325 MG TABLET PO PRN (12:15)
[2018-06-16] MEDS: RT-ALBUTEROL/IPRATROPIUM 3 ML (DUONEB) VIAL IH SCH ×3 (12:15→20:18)
--- NOTE | 2018-06-16 12:15 | NUR ---
PATIENT HAD NEVER TAKEN AN SVN BT BEFORE SO RT EDUCATED PATIENT ON THE PROPER WAY TO TAKEN AN SVN BT.
[2018-06-16 15:59] VITALS: BP 129/75
[2018-06-16 19:29] VITALS: BP 151/62
[2018-06-16] MEDS: traZODone 100 MG (DESYREL) TAB PO SCH (20:02)
[2018-06-16] MEDS: POLYETHYLENE GLYCOL 17 GM (MIRALAX) PACK PO SCH (20:02)
[2018-06-16] MEDS: CARVEDILOL 12.5 MG (COREG) TABLET PO SCH (20:02)
[2018-06-16] MEDS: TAMSULOSIN 0.4 MG (FLOMAX) CAP PO SCH (20:03)
[2018-06-16] MEDS: MEMANTINE 10 MG (NAMENDA) TABLET PO SCH (20:03)
[2018-06-16] MEDS: RT-ADVAIR HFA 115/21 MCG PER PUFF IH SCH (20:18)
[2018-06-16] MEDS ORDERED: NON-FORMULARY MEDICATION 1 EA EA (Budesonide/Formoterol Fumarate (Symbicort 160-4.5 Mcg In IH SCH (21:00)
[2018-06-16] MEDS ORDERED: NON-FORMULARY MEDICATION 1 EA EA (Polyethylene Glycol 3350 (Miralax) 17 GM) PO SCH (21:00)
[2018-06-16] MEDS ORDERED: NON-FORMULARY MEDICATION 1 EA EA (Memantine HCl 10 MG) PO SCH (21:00)
[2018-06-16 23:00] VITALS: BP 143/70
[2018-06-17] MEDS: methylPREDNISolone 40 MG/ML (Solu-MEDROL) VIAL IV SCH ×4 (00:06→17:51)
[2018-06-17 03:42] VITALS: BP 135/61
[2018-06-17 05:15] LABS: BASOPHILS % (AUTO) 0 % (0-10); EOSINOPHILS % (AUTO) 0 % (0-10); HEMATOCRIT 32 % (40-54); HEMOGLOBIN 10.8 G/DL (13.3-17.7); LYMPHOCYTES # (AUTO) 0.5 X 10^3 (1.0-4.0); LYMPHOCYTES % (AUTO) 5 % (12-44); MEAN CORPUSCULAR HEMOGLOBIN 31 PG (25-34); MEAN CORPUSCULAR HGB CONC 34 G/DL (32-36); MEAN CORPUSCULAR VOLUME 92 FL (80-99); MEAN PLATELET VOLUME 10.6 FL (7.4-10.4); MONOCYTES # (AUTO) 0.3 X 10^3 (0.0-1.0); MONOCYTES % (AUTO) 3 % (0-12); NEUTROPHILS # (AUTO) 9.9 X 10^3 (1.8-7.8); NEUTROPHILS % (AUTO) 92 % (42-75); PLATELET COUNT 115 10^3/uL (130-400); WHITE BLOOD COUNT 10.7 10^3/uL (4.3-11.0)
[2018-06-17] MEDS: PANTOPRAZOLE 40 MG (PROTONIX) TAB PO SCH (05:21)
[2018-06-17] MEDS: NS IV 1000 ML 1,000 ML IV SCH (05:22)
[2018-06-17 05:43] LABS: CALCIUM 8.9 MG/DL (8.5-10.1); CREATININE SERUM 1.63 MG/DL (0.60-1.30); POTASSIUM 4.4 MMOL/L (3.6-5.0)
[2018-06-17 06:38] LABS: LYMPHOCYTES % (MANUAL) 4 %; MONOCYTES % (MANUAL) 3 %; NEUTROPHILS % (MANUAL) 93 %
[2018-06-17] MEDS ORDERED: predniSONE 5 MG TAB PO SCH (07:00)
--- NOTE | 2018-06-17 07:55 | Diagnostic Imaging Report ---
INDICATION: COPD exacerbation COMPARISON: 06/16/2018 FINDINGS: Single frontal view of the chest demonstrates normal heart size and pulmonary vascularity. The lungs are well aerated and clear. No large pleural effusion or pneumothorax is seen. The visualized osseous structures show no acute abnormalities. IMPRESSION: 1. No acute cardiopulmonary process. Dictated by: Dictated on workstation # [id number]
[2018-06-17 08:00] VITALS: BP 153/73
[2018-06-17] MEDS ORDERED: CEFEPIME 2,000 MG/SWFI 20 ML IV PUSH IV SCH ×2 (08:00)
[2018-06-17] MEDS ORDERED: RT-ADVAIR HFA 115/21 MCG PER PUFF IH SCH (08:00)
[2018-06-17] MEDS: amLODIPine 10 MG (NORVASC) TAB PO SCH (08:39)
[2018-06-17] MEDS: FINASTERIDE (PROSCAR) 5 MG TAB PO SCH (08:39)
[2018-06-17] MEDS: POLYETHYLENE GLYCOL 17 GM (MIRALAX) PACK PO SCH ×2 (08:39→19:26)
[2018-06-17] MEDS: CARVEDILOL 12.5 MG (COREG) TABLET PO SCH ×2 (08:39→19:26)
[2018-06-17] MEDS: MEMANTINE 10 MG (NAMENDA) TABLET PO SCH ×2 (08:39→19:26)
[2018-06-17] MEDS: SERTRALINE 50 MG (ZOLOFT) TABLET PO SCH (08:39)
[2018-06-17] MEDS ORDERED: NON-FORMULARY MEDICATION 1 EA EA (Amlodipine Besylate 10 MG) PO SCH (09:00)
[2018-06-17] MEDS ORDERED: NON-FORMULARY MEDICATION 1 EA EA (Rivastigmine (Exelon) 9.5 MG) TD SCH (09:00)
[2018-06-17] MEDS ORDERED: PREDNISONE 2.5 MG PO SCH (09:00)
[2018-06-17] MEDS ORDERED: VANCOMYCIN INJECTION 0.1 MG in NS (IVPB) 250 ML IV SCH (09:45)
--- NOTE | 2018-06-17 09:56 | NUR ---
CR 1.63; CR CL ~39; WT 84 KG; VANCO 1750 MG IV BOLUS THEN 1250 MG IV Q24H; TROUGH AFTER 2ND DOSE
[2018-06-17] MEDS ORDERED: VANCOMYCIN 1,750 MG/NS 500 ML IVPB IV NR ×2 (10:00)
[2018-06-17] MEDS: RT-ALBUTEROL/IPRATROPIUM 3 ML (DUONEB) VIAL IH SCH ×3 (11:18→15:04)
[2018-06-17] MEDS: RT-ADVAIR HFA 115/21 MCG PER PUFF IH SCH (11:19)
--- OUTSIDE RECORDS SUMMARY | 2018-06-17 11:42 | XMS REPORT ---
Author Author RAYMOND DOOLEY [facility] Address Unknown Care Team Providers Care Manpower Development Advisor Name Role Phone TAMMIEJOLYNNRAYMOND Unavailable PROBLEMS Unknown Problems ALLERGIES Substance Reaction Event Type Date Status Simvastatin Unknown Drug Allergy Feb, Active Percocet Unknown Drug Allergy Feb, Active Oxycodone HCl Unknown Drug Allergy Feb, Active Lisinopril Unknown Drug Allergy Feb, Active Hydrocodone-Acetaminophen Unknown Drug Allergy Feb, Active ENCOUNTERS Encounter Location Date Diagnosis [facility] [id number] [place] [id number] Mar, [facility] [address] [id number] [place] [address] [id number] Feb, Dental examination Z01.20 and Caries K02.9 [facility] [id number] [place] [address] [id number] Jul, Dental examination Z01.20 [facility] [id number] [place] [address] [id number] Jul, Dental caries K02.9 and Dental examination Z01.20 [facility] [id number] [place] [address] [id number] Jan, Encounter for dental examination and cleaning without abnormal findings Z01.20 [facility] [id number] [place] [address] [id number] Jul, Encounter for dental examination and cleaning without abnormal findings Z01.20 [facility] [address] [id number] [phone] Jan, Encounter for dental examination Z01.20 [facility] [address] [id number] [id number] Jan, Encounter for dental examination and cleaning without abnormal findings Z01.20 [facility] [address] [facility] [id number] [place] [phone] Nov, Dental caries K02.9 [facility] [address] [facility] [id number] [id number] Oct, Encounter for dental examination Z01.20 [facility] [address] [facility] [id number] [id number] Sep, Dental examination Z01.20 and Dental caries K02.9 [facility] [address] [facility] [id number] [phone] Jun, Encounter for dental examination and cleaning without abnormal findings Z01.20 IMMUNIZATIONS No Known Immunizations SOCIAL HISTORY Never Assessed REASON FOR VISIT HANANE- Pain PLAN OF CARE VITAL SIGNS Blood pressure systolic 106 mmHg 2018-03-15 Blood pressure diastolic 75 mmHg 2018-03-15 MEDICATIONS Medication Instructions Dosage Frequency Start Date End Date Duration Status Calcarb 600/D Active Tylenol Not-Taking Proscar 5 MG Orally Once a day 1 tablet 24h Active MiraLax Active Colace 100 MG Orally Once a day 1 capsule as needed 24h Active Flomax 0.4 MG Orally Once a day 1 capsule 30 minutes after the same meal each day 24h Active Ventolin HFA 108 (90 Base) MCG/ACT Inhalation every 4 hrs 2 puffs as needed 4h Not-Taking Zocor 20 MG Orally Once a day 1 tablet in the evening 24h Active Coreg 12.5 MG Active Exelon 9.5 MG/24HR Transdermal Once a day 1 patch to skin 24h Active Vitamin D Active Prednisone 1 tab Active protonix 1 tab Active Norvasc 10 MG Orally Once a day 1 tablet 24h Active Trazodone HCl 100 MG Orally Once a day 1 tablet at bedtime 24h Active DuoNeb Not-Taking Melatonin Active Zoloft 50 MG Orally Once a day 1 tablet 24h Active Namenda 10 MG Orally Twice a day 1 tablet 12h Active Symbicort 160-4.5 MCG/ACT Inhalation Twice a day 2 puffs 12h Not- Taking NovoLIN R ReliOn Not-Taking NovoLog Flexpen Not-Taking Ferrous Sulfate 325 (65 Fe) MG Orally Once a day 1 tablet 24h Active Aplisol 5 UNIT/0.1ML Not-Taking Folic Acid Active Tamsulosin HCl 0.4 MG Orally Once a day 1 capsule 24h Not-Taking RESULTS No Results PROCEDURES Procedure Date Ordered Result Body Site LTD ORAL EVALUATION - PROBLEM FOCUS Mar 15, 2018 INTRAORL-PERIAPICAL 1 FILM [id number] Mar 15, 2018 EXTRAC ERUPTED TOOTH/EXPOSED ROOT Mar 15, 2018 INSTRUCTIONS MEDICATIONS ADMINISTERED No Known Medications MEDICAL [...]
--- OUTSIDE RECORDS SUMMARY | 2018-06-17 11:46 | XMS REPORT | Continuity of Care Document ---
Author Author [facility] Organization [facility] Address Unknown Phone Unavailable Allergies Active Description Code Type Severity Reaction Onset Reported/Identified Relationship to Patient Clinical Status Yes No Known Drug Allergies [id number] Drug Allergy Unknown N/A 07/28/2010 Yes acetaminophen [id number] Drug Allergy Unknown N/A 07/24/2014 Yes hydrocodone [id number] Drug Allergy Unknown N/A 07/24/2014 Yes oxycodone [id number] Drug Allergy Unknown N/A 07/24/2014 Yes acetaminophen [id number] Drug Allergy Unknown N/A 07/24/2014 Yes hydrocodone [id number] Drug Allergy Unknown N/A 07/24/2014 Yes oxycodone [id number] Drug Allergy Unknown N/A 07/24/2014 Medications There is no data. Problems Date Dx Coded Attending Type Code Diagnosis Diagnosed By 07/28/2010 Ot 922.2 07/28/2010 Ot 959.12 07/28/2010 Ot E000.8 07/28/2010 Ot E849.0 07/28/2010 Ot E917.9 10/12/2013 JERONIMO MAYBERRY [employer] Ot 883.0 OPEN WOUND OF FINGER 10/12/2013 JERONIMO MAYBERRY [employer] BU[employer]DER Ot E029.9 OTHER ACTIVITY 10/12/2013 JERONIMO MAYBERRY [employer] BU[employer]DER Ot E849.0 ACCIDENT IN HOME 10/12/2013 JERONIMO MAYBERRY [employer] BUILDER Ot E920.8 ACC-CUTTING INSTRUM NEC 10/12/2013 JERONIMO MAYBERRY [employer] BUILDER Ot V06.1 [id number], COMBINED [ 10/21/2013 CALEB ROYAL, JAHAIRA Jones [...] Ray Ot N18.3 06/12/2015 GABRIELLA ROYAL, ROSHNI aRy Ot D64.9 06/12/2015 GABRIELLA ROYAL, ROSHNI Ray [...] CHRONIC KIDNEY DISEASE W ST 05/29/2016 JENY QURIOZ MD Ot N18.3 CHRONIC KIDNEY DISEASE, STAGE [...] IMMUNIZATION 05/29/2016 JAHAIRA ELLIS MD Ot Z79.82 MCC (CURRENT) USE OF ASPIRIN 05/29/2016 JAHAIRA ELLIS MD Ot Z79.899 OTHER MCC (CURRENT) DRUG THERAPY 05/31/2016 JAHAIRA ELLIS MD [...] IMMUNIZATION 05/31/2016 JAHAIRA ELLIS MD Ot Z79.82 MCC (CURRENT) USE OF ASPIRIN 05/31/2016 JAHAIRA ELLIS MD Ot Z79.899 OTHER ROTO GRAVURE PRESS OPERATOR (CURRENT) DRUG THERAPY 06/04/2016 Ot 787.24 DYSPHAGIA, [...] DISEASE, STAGE 3 (MODERAT 06/04/2016 LAUREN LOPEZ [employer]DER Ot R05 COUGH 06/04/2016 LAUREN LOPEZ [employer] BUILDER Ot R50.9 FEVER, UNSPECIFIED 06/09/2016 LAUREN LOPEZ [employer] BUILDER Ot R05 COUGH 06/09/2016 LAUREN LOPEZ [employer] BUILDER Ot R50.9 FEVER, UNSPECIFIED 06/16/2016 LAUREN LOPEZ [employer]ENE BUILDER Ot R05 COUGH 06/16/2016 LAUREN LOPEZ APRN Ot R50.9 FEVER, UNSPECIFIED 05/16/2017 JENY QUIROZ MD Ot D64.9 ANEMIA, UNSPECIFIED 05/16/2017 GABRIELLA ROYAL, ROSHNI Ray Ot I12.9 HYPERTENSIVE CHRONIC KIDNEY DISEASE W ST 05/16/2017 GABRIELLA ROYAL, ROSHNI Ray Ot N18.3 CHRONIC KIDNEY DISEASE, STAGE 3 (MODERAT 12/15/2017 ILIANA SQUIRES MD Ot R50.9 FEVER, UNSPECIFIED 12/15/2017 ILIANA SQUIRES MD Ot Z79.52 MCC (CURRENT) USE OF SYSTEMIC STER 12/15/2017 ILIANA SQUIRES MD Ot Z79.82 ROTO GRAVURE PRESS OPERATOR (CURRENT) USE OF ASPIRIN 12/15/2017 ILIANA SQUIRES MD Ot Z82.49 FAMILY HX OF ISCHEM HEART DIS AND OTH DI 12/15/2017 ILIANA SQUIRES MD Ot Z88.5 ALLERGY STATUS TO NARCOTIC AGENT STATUS 12/15/2017 ILIANA SQUIRES MD Ot Z88.8 ALLERGY STATUS TO OTH DRUG/MEDS/BIOL SUB 12/19/2017 ILIANA SQUIRES MD Ot R50.9 FEVER, UNSPECIFIED 12/19/2017 ILIANA SQUIRES MD Ot Z79.52 MCC (CURRENT) USE OF SYSTEMIC STER 12/19/2017 ILIANA SQUIRES MD Ot Z79.82 MCC (CURRENT) USE OF ASPIRIN 12/19/2017 ILIANA SQUIRES MD Ot Z82.49 FAMILY HX OF ISCHEM HEART DIS AND OTH DI 12/19/2017 ILIANA SQUIRES MD Ot Z88.5 ALLERGY STATUS TO NARCOTIC AGENT STATUS 12/19/2017 ILIANA SQUIRES MD Ot Z88.8 ALLERGY STATUS TO OTH DRUG/MEDS/BIOL SUB 12/20/2017 BRENDON BARNES MD Ot E78.00 PURE HYPERCHOLESTEROLEMIA, UNSPECIFIED 12/20/2017 BRENDON BARNES MD Ot F03.90 UNSPECIFIED DEMENTIA WITHOUT BEHAVIORAL 12/20/2017 BRENDON BARNES MD Ot F32.9 MAJOR DEPRESSIVE DISORDER, SINGLE EPISOD 12/20/2017 BRENDON BARNES MD Ot F41.9 ANXIETY DISORDER, UNSPECIFIED 12/20/2017 BRENDON BARNES MD Ot G47.9 SLEEP DISORDER, UNSPECIFIED 12/20/2017 BRENDON BARNES MD Ot I12.9 HYPERTENSIVE CHRONIC KIDNEY DISEASE W ST 12/20/2017 BRENDON BARNES MD, Ot J18.9 PNEUMONIA, UNSPECIFIED ORGANISM 12/20/2017 BRENDON BARNES MD, Ot J44.0 CHRONIC OBSTRUCTIVE PULMON DISEASE W ACU 12/20/2017 BRENDON BARNES MD Ot J98.11 ATELECTASIS 12/20/2017 BRENDON BARNES MD Ot K21.9 GASTRO-ESOPHAGEAL REFLUX DISEASE WITHOUT 12/20/2017 BRENDON BARNES MD Ot N18.3 CHRONIC KIDNEY DISEASE, STAGE 3 (MODERAT 12/20/2017 BRENDNO BARNES MD Ot Z66 DO NOT RESUSCITATE 12/20/2017 BRENDON BARNES MD, Ot Z87.891 PERSONAL HISTORY OF NICOTINE DEPENDENCE 12/21/2017 ILIANA SQUIRES MD Ot R50.9 FEVER, UNSPECIFIED 12/21/2017 ILIANA SQUIRES MD Ot Z79.52 MCC (CURRENT) USE OF SYSTEMIC STER 12/21/2017 ILIANA SQUIRES MD Ot Z79.82 MCC (CURRENT) USE OF ASPIRIN 12/21/2017 ILIANA SQUIRES MD Ot Z82.49 FAMILY HX OF ISCHEM HEART DIS AND OTH DI 12/21/2017 ILIANA SQUIRES MD Ot Z88.5 ALLERGY STATUS TO NARCOTIC AGENT STATUS 12/21/2017 ILIANA SQUIRES MD Ot Z88.8 ALLERGY STATUS TO OT DRUG/MEDS/BIOL SUB 02/20/2018 BRYANT LEIZABETH APRN Ot J30.2 OTHER SEASONAL ALLERGIC RHINITIS 02/20/2018 BRYANT ELIZABETH APRN Ot J90 PLEURAL EFFUSION, NOT ELSEWHERE CLASSIFI 03/22/2018 BRYANT ELIZABETH APRN Ot J30.2 OTHER SEASONAL ALLERGIC RHINITIS 03/22/2018 BRYANT ELIZABETH APRN Ot J90 PLEURAL EFFUSION, NOT ELSEWHERE CLASSIFI Procedures There is no data. Results Test [...] urinalysis with reflex to culture NO NRG Complete blood count (CBC) with automated white blood cell (WBC) differential - 12/15/17 22:38 Blood leukocytes automated count (number/volume) 9.8 10*3/uL 4.3-11.0 Blood erythrocytes automated count (number/volume) 3.46 10*6/uL 4.35-5.85 Venous blood hemoglobin measurement (mass/volume) 10.8 g/dL 13.3-17.7 Blood hematocrit (volume fraction) 32 % 40-54 Automated erythrocyte mean corpuscular volume 93 [foz_us] 80-99 Automated erythrocyte mean corpuscular hemoglobin (mass per erythrocyte) 31 pg 25-34 Automated erythrocyte mean corpuscular hemoglobin concentration measurement ( mass/volume) 34 g/dL 32-36 Automated erythrocyte distribution width ratio 13.0 % 10.0-14.5 Automated blood platelet count (count/volume) 123 10*3/uL 130-400 Automated blood platelet mean volume measurement 10.3 [foz_us] 7.4-10.4 Automated blood neutrophils/100 leukocytes 78 % 42-75 Automated blood lymphocytes/100 leukocytes 10 % 12-44 Blood monocytes/100 leukocytes 11 % 0-12 Automated blood eosinophils/100 leukocytes 1 % 0-10 Automated blood basophils/100 leukocytes 0 % 0-10 Blood neutrophils automated count (number/volume) 7.7 10*3 1.8-7.8 Blood lymphocytes automated count (number/volume) 1.0 10*3 1.0-4.0 Blood monocytes automated count (number/volume) 1.1 10*3 0.0-1.0 Automated eosinophil count 0.1 10*3/uL 0.0-0.3 Automated blood basophil count (count/volume) 0.0 10*3/uL 0.0-0.1 Comprehensive metabolic panel - 12/15/17 22:38 Serum or plasma sodium measurement (moles/volume) 138 mmol/L 135-145 Serum or plasma potassium measurement (moles/volume) 4.0 mmol/L 3.6-5.0 Serum or plasma chloride measurement (moles/volume) 106 mmol/L 98-107 Carbon dioxide 20 mmol/L 21-32 Serum or plasma anion gap determination (moles/volume) 12 mmol/L 5-14 Serum or plasma urea nitrogen measurement (mass/volume) 41 mg/dL 7-18 Serum or plasma creatinine measurement (mass/volume) 2.23 mg/dL 0.60-1.30 Serum or plasma urea nitrogen/creatinine mass ratio 18 NRG Serum or plasma creatinine measurement with calculation of estimated glomerular filtration rate 29 NRG Serum or plasma glucose measurement (mass/volume) 155 mg/dL 70-105 Serum or plasma calcium measurement (mass/volume) 9.0 mg/dL 8.5-10.1 Serum or plasma total bilirubin measurement (mass/volume) 0.5 mg/dL 0.1-1.0 Serum or plasma alkaline phosphatase measurement (enzymatic activity/volume) 33 U/L 40-136 Serum or plasma aspartate aminotransferase measurement (enzymatic activity/ volume) 16 U/L 5-34 Serum or plasma alanine aminotransferase measurement (enzymatic activity/volume ) 13 U/L 0-55 Serum or plasma protein measurement (mass/volume) 6.7 g/dL 6.4-8.2 Serum or plasma albumin measurement (mass/volume) 3.4 g/dL 3.2-4.5 CALCIUM CORRECTED 9.5 mg/dL 8.5-10.1 Complete urinalysis with reflex to culture - 12/15/17 22:45 Urine color determination YELLOW NRG Urine clarity determination SLIGHTLY CLOUDY NRG Urine pH measurement by test strip 6 5-9 Specific gravity of urine by test strip 1.010 1.016- 1.022 Urine protein assay by test strip, semi-quantitative 2+ NEGATIVE Urine glucose detection by automated test strip NEGATIVE NEGATIVE Erythrocytes detection in urine sediment by light microscopy 3+ NEGATIVE Urine ketones detection by automated test strip NEGATIVE NEGATIVE Urine nitrite detection by test strip NEGATIVE NEGATIVE Urine total bilirubin detection by test strip NEGATIVE NEGATIVE Urine urobilinogen measurement by automated test strip (mass/volume) NORMAL NORMAL Urine leukocyte esterase detection by dipstick NEGATIVE NEGATIVE Automated urine sediment erythrocyte count by microscopy (number/high power field) [HPF] NRG Automated urine sediment leukocyte count by microscopy (number/high power field ) NONE NRG Bacteria detection in urine sediment by light microscopy NONE NRG Crystals detection in urine sediment by light microscopy NONE NRG Casts detection in urine sediment by light microscopy NONE NRG Mucus detection in urine sediment by light microscopy NEGATIVE NRG Complete urinalysis with reflex to culture NO NRG Complete blood count (CBC) with automated white blood cell (WBC) differential - 12/16/17 20:44 Blood leukocytes automated count (number/volume) 9.0 10*3/uL 4.3-11.0 Blood erythrocytes automated count (number/volume) 3.42 10*6/uL 4.35-5.85 Venous blood hemoglobin measurement (mass/volume) 10.6 g/dL 13.3-17.7 Blood hematocrit (volume fraction) 32 % 40-54 Automated erythrocyte mean corpuscular volume 93 [foz_us] 80-99 Automated erythrocyte mean corpuscular hemoglobin (mass per erythrocyte) 31 pg 25-34 Automated erythrocyte mean corpuscular hemoglobin concentration measurement ( mass/volume) 33 g/dL 32-36 Automated erythrocyte distribution width ratio 13.1 % 10.0-14.5 Automated blood platelet count (count/volume) 126 10*3/uL 130-400 Automated blood platelet mean volume measurement 10.7 [foz_us] 7.4-10.4 Automated blood neutrophils/100 leukocytes 79 % 42-75 Automated blood lymphocytes/100 leukocytes 9 % 12-44 Blood monocytes/100 leukocytes 11 % 0-12 Automated blood eosinophils/100 leukocytes 1 % 0-10 Automated blood basophils/100 leukocytes 0 % 0-10 Blood neutrophils automated count (number/volume) 7.2 10*3 1.8-7.8 Blood lymphocytes automated count (number/volume) 0.8 10*3 1.0-4.0 Blood monocytes automated count (number/volume) 1.0 10*3 0.0-1.0 Automated eosinophil count 0.1 10*3/uL 0.0-0.3 Automated blood basophil count (count/volume) 0.0 10*3/uL 0.0-0.1 Blood lactic acid measurement (moles/volume) - 12/16/17 20:44 Blood lactic acid measurement (moles/volume) 1.74 mmol/L 0.50-2.00 Comprehensive metabolic panel - 12/16/17 20:44 Serum or plasma sodium measurement (moles/volume) 136 mmol/L 135-145 Serum or plasma potassium measurement (moles/volume) 3.9 mmol/L 3.6-5.0 Serum or plasma chloride measurement (moles/volume) 105 mmol/L 98-107 Carbon dioxide 21 mmol/L 21-32 Serum or plasma anion gap determination (moles/volume) 10 mmol/L 5-14 Serum or plasma urea nitrogen measurement (mass/volume) 45 mg/dL 7-18 Serum or plasma creatinine measurement (mass/volume) 2.16 mg/dL 0.60-1.30 Serum or plasma urea nitrogen/creatinine mass ratio 21 NRG Serum or plasma creatinine measurement with calculation of estimated glomerular filtration rate 30 NRG Serum or plasma glucose measurement (mass/volume) 204 mg/dL 70-105 Serum or plasma calcium measurement (mass/volume) 9.0 mg/dL 8.5-10.1 Serum or plasma total bilirubin measurement (mass/volume) 0.3 mg/dL 0.1-1.0 Serum or plasma alkaline phosphatase measurement (enzymatic activity/volume) 41 U/L 40-136 Serum or plasma aspartate aminotransferase measurement (enzymatic activity/ volume) 20 U/L 5-34 Serum or plasma alanine aminotransferase measurement (enzymatic activity/volume ) 17 U/L 0-55 Serum or plasma protein measurement (mass/volume) 6.7 g/dL 6.4-8.2 Serum or plasma albumin measurement (mass/volume) 3.4 g/dL 3.2-4.5 CALCIUM CORRECTED 9.5 mg/dL 8.5-10.1 Serum or plasma amylase measurement (enzymatic activity/volume) - 12/16/17 20: 44 Serum or plasma amylase measurement (enzymatic activity/volume) 37 U /L 25-125 Lipase - 12/16/17 20:44 Lipase 23 U/L 8-78 Bacterial blood culture - 12/16/17 20:44 QUANTITY OF GROWTH . NRG Bacterial blood culture SEE COMMEN NRG Complete urinalysis with reflex to culture - 12/16/17 21:00 Urine color determination YELLOW NRG Urine clarity determination CLEAR NRG Urine pH measurement by test strip 5 5-9 Specific gravity of urine by test strip 1.010 1.016- 1.022 Urine protein assay by test strip, semi-quantitative 3+ NEGATIVE Urine glucose detection by automated test strip NEGATIVE NEGATIVE Erythrocytes detection in urine sediment by light microscopy 2+ NEGATIVE Urine ketones detection by automated test strip NEGATIVE NEGATIVE Urine nitrite detection by test strip NEGATIVE NEGATIVE Urine total bilirubin detection by test strip NEGATIVE NEGATIVE Urine urobilinogen measurement by automated test strip (mass/volume) NORMAL NORMAL Urine leukocyte esterase detection by dipstick 1+ NEGATIVE Automated urine sediment erythrocyte count by microscopy (number/high power field) NONE NRG Automated urine sediment leukocyte count by microscopy (number/high power field ) [HPF] NRG Bacteria detection in urine sediment by light microscopy NEGATIVE NRG Squamous epithelial cells detection in urine sediment by light microscopy 0-2 NRG Crystals detection in urine sediment by light microscopy PRESENT NRG Casts detection in urine sediment by light microscopy NONE NRG Mucus detection in urine sediment by light microscopy NEGATIVE NRG Complete urinalysis with reflex to culture NO NRG Amorphous sediment detection in urine sediment by light microscopy LARGE LAUREN URATES NRG Bacterial blood culture - 12/16/17 21:16 Bacterial blood culture NG NRG Complete blood count (CBC) with automated white blood cell (WBC) differential - 12/17/17 06:10 Blood leukocytes automated count (number/volume) 8.0 10*3/uL 4.3-11.0 Blood erythrocytes automated count (number/volume) 3.27 10*6/uL 4.35-5.85 Venous blood hemoglobin measurement (mass/volume) 10.1 g/dL 13.3-17.7 Blood hematocrit (volume fraction) 31 % 40-54 Automated erythrocyte mean corpuscular volume 93 [foz_us] 80-99 Automated erythrocyte mean corpuscular hemoglobin (mass per erythrocyte) 31 pg 25-34 Automated erythrocyte mean corpuscular hemoglobin concentration measurement ( mass/volume) 33 g/dL 32-36 Automated erythrocyte distribution width ratio 13.0 % 10.0-14.5 Automated blood platelet count (count/volume) 103 10*3/uL 130-400 Automated blood platelet mean volume measurement 10.3 [foz_us] 7.4-10.4 Automated blood neutrophils/100 leukocytes 77 % 42-75 Automated blood lymphocytes/100 leukocytes 11 % 12-44 Blood monocytes/100 leukocytes 10 % 0-12 Automated blood eosinophils/100 leukocytes 2 % 0-10 Automated blood basophils/100 leukocytes 0 % 0-10 Blood neutrophils automated count (number/volume) 6.1 10*3 1.8-7.8 Blood lymphocytes automated count (number/volume) 0.9 10*3 1.0-4.0 Blood monocytes automated count (number/volume) 0.8 10*3 0.0-1.0 Automated eosinophil count 0.2 10*3/uL 0.0-0.3 Automated blood basophil count (count/volume) 0.0 10*3/uL 0.0-0.1 Comprehensive metabolic panel - 12/17/17 06:10 Serum or plasma sodium measurement (moles/volume) 139 mmol/L 135-145 Serum or plasma potassium measurement (moles/volume) 3.8 mmol/L 3.6-5.0 Serum or plasma chloride measurement (moles/volume) 109 mmol/L 98-107 Carbon dioxide 23 mmol/L 21-32 Serum or plasma anion gap determination (moles/volume) 7 mmol/L 5-14 Serum or plasma urea nitrogen measurement (mass/volume) 39 mg/dL 7-18 Serum or plasma creatinine measurement (mass/volume) 1.94 mg/dL 0.60-1.30 Serum or plasma urea nitrogen/creatinine mass ratio 20 NRG Serum or plasma creatinine measurement with calculation of estimated glomerular filtration rate 34 NRG Serum or plasma glucose measurement (mass/volume) 105 mg/dL 70-105 Serum or plasma calcium measurement (mass/volume) 8.7 mg/dL 8.5-10.1 Serum or plasma total bilirubin measurement (mass/volume) 0.3 mg/dL 0.1-1.0 Serum or plasma alkaline phosphatase measurement (enzymatic activity/volume) 38 U/L 40-136 Serum or plasma aspartate aminotransferase measurement (enzymatic activity/ volume) 25 U/L 5-34 Serum or plasma alanine aminotransferase measurement (enzymatic activity/volume ) 17 U/L 0-55 Serum or plasma protein measurement (mass/volume) 6.0 g/dL 6.4-8.2 Serum or plasma albumin measurement (mass/volume) 3.0 g/dL 3.2-4.5 CALCIUM CORRECTED 9.5 mg/dL 8.5-10.1 Complete blood count (CBC) with automated white blood cell (WBC) differential - 12/18/17 05:26 Blood leukocytes automated count (number/volume) 7.6 10*3/uL 4.3-11.0 Blood erythrocytes automated count (number/volume) 3.30 10*6/uL 4.35-5.85 Venous blood hemoglobin measurement (mass/volume) 10.4 g/dL 13.3-17.7 Blood hematocrit (volume fraction) 30 % 40-54 Automated erythrocyte mean corpuscular volume 91 [foz_us] 80-99 Automated erythrocyte mean corpuscular hemoglobin (mass per erythrocyte) 32 pg 25-34 Automated erythrocyte mean corpuscular hemoglobin concentration measurement ( mass/volume) 35 g/dL 32-36 Automated erythrocyte distribution width ratio 13.2 % 10.0-14.5 Automated blood platelet count (count/volume) 117 10*3/uL 130-400 Automated blood platelet mean volume measurement 10.5 [foz_us] 7.4-10.4 Automated blood neutrophils/100 leukocytes 78 % 42-75 Automated blood lymphocytes/100 leukocytes 11 % 12-44 Blood monocytes/100 leukocytes 9 % 0-12 Automated blood eosinophils/100 leukocytes 1 % 0-10 Automated blood basophils/100 leukocytes 0 % 0-10 Blood neutrophils automated count (number/volume) 5.9 10*3 1.8-7.8 Blood lymphocytes automated count (number/volume) 0.9 10*3 1.0-4.0 Blood monocytes automated count (number/volume) 0.7 10*3 0.0-1.0 Automated eosinophil count 0.1 10*3/uL 0.0-0.3 Automated blood basophil count (count/volume) 0.0 10*3/uL 0.0-0.1 Whole blood basic metabolic panel - 12/18/17 05:26 Serum or plasma sodium measurement (moles/volume) 140 mmol/L 135-145 Serum or plasma potassium measurement (moles/volume) 3.7 mmol/L 3.6-5.0 Serum or plasma chloride measurement (moles/volume) 110 mmol/L 98-107 Carbon dioxide 17 mmol/L 21-32 Serum or plasma anion gap determination (moles/volume) 13 mmol/L 5-14 Serum or plasma urea nitrogen measurement (mass/volume) 27 mg/dL 7-18 Serum or plasma creatinine measurement (mass/volume) 1.54 mg/dL 0.60-1.30 Serum or plasma urea nitrogen/creatinine mass ratio 18 NRG Serum or plasma creatinine measurement with calculation of estimated glomerular filtration rate 44 NRG Serum or plasma glucose measurement (mass/volume) 88 mg/dL 70-105 Serum or plasma calcium measurement (mass/volume) 9.1 mg/dL 8.5-10.1 Complete blood count (CBC) with automated white blood cell (WBC) differential - 12/19/17 07:02 Blood leukocytes automated count (number/volume) 6.9 10*3/uL 4.3-11.0 Blood erythrocytes automated count (number/volume) 3.81 10*6/uL 4.35-5.85 Venous blood hemoglobin measurement (mass/volume) 11.6 g/dL 13.3-17.7 Blood hematocrit (volume fraction) 35 % 40-54 Automated erythrocyte mean corpuscular volume 93 [foz_us] 80-99 Automated erythrocyte mean corpuscular hemoglobin (mass per erythrocyte) 30 pg 25-34 Automated erythrocyte mean corpuscular hemoglobin concentration measurement ( mass/volume) 33 g/dL 32-36 Automated erythrocyte distribution width ratio 13.6 % 10.0-14.5 Automated blood platelet count (count/volume) 168 10*3/uL 130-400 Automated blood platelet mean volume measurement 9.7 [foz_us] 7.4-10.4 Automated blood neutrophils/100 leukocytes 73 % 42-75 Automated blood lymphocytes/100 leukocytes 13 % 12-44 Blood monocytes/100 leukocytes 11 % 0-12 Automated blood eosinophils/100 leukocytes 3 % 0-10 Automated blood basophils/100 leukocytes 0 % 0-10 Blood neutrophils automated count (number/volume) 5.1 10*3 1.8-7.8 Blood lymphocytes automated count (number/volume) 0.9 10*3 1.0-4.0 Blood monocytes automated count (number/volume) 0.8 10*3 0.0-1.0 Automated eosinophil count 0.2 10*3/uL 0.0-0.3 Automated blood basophil count (count/volume) 0.0 10*3/uL 0.0-0.1 Whole blood basic metabolic panel - 12/19/17 07:02 Serum or plasma sodium measurement (moles/volume) 140 mmol/L 135-145 Serum or plasma potassium measurement (moles/volume) 3.9 mmol/L 3.6-5.0 Serum or plasma chloride measurement (moles/volume) 109 mmol/L 98-107 Carbon dioxide 22 mmol/L 21-32 Serum or plasma anion gap determination (moles/volume) 9 mmol/L 5-14 Serum or plasma urea nitrogen measurement (mass/volume) 31 mg/dL 7-18 Serum or plasma creatinine measurement (mass/volume) 1.54 mg/dL 0.60-1.30 Serum or plasma urea nitrogen/creatinine mass ratio 20 NRG Serum or plasma creatinine measurement with calculation of estimated glomerular filtration rate 44 NRG Serum or plasma glucose measurement (mass/volume) 119 mg/dL 70-105 Serum or plasma calcium measurement (mass/volume) 9.7 mg/dL 8.5-10.1 Encounters ACCT No. Visit Date/Time Discharge Status Pt. Type Provider Facility Loc./Unit Complaint [id number] 02/20/2018 07:34:00 02/20/2018 23:59:59 CLS Preadmit BRYANT ELIZABETH APRN [facility] RAD PNEUMONIA,LUNG NODULE [id number] 02/19/2018 10:30:00 02/19/2018 23:59:59 CLS Outpatient BRYANT ELIZABETH APRN [facility] RAD PNEUMONIA,SEASONAL ALLERGY [id number] 12/16/2017 21:47:00 12/20/2017 14:20:00 DIS Inpatient CAMERON ROYAL, BRENDON Ray [facility] 4TH PNEUMONIA,CHRONIC RENAL INSUFF,DEMENTIA [id number] 12/15/2017 20:33:00 12/15/2017 22:56:00 DIS Emergency ILIANA SQUIRES MD [facility] ER FEVER [id number] 04/21/2017 17:36:00 04/21/2017 23:59:59 CLS Outpatient GABRIELLA ROYAL, ROSHNI Ray [facility] LAB CKD STAGE III, GLOMERULONEPHRITIS [id number] 05/29/2016 18:00:00 05/29/2016 19:17:00 DIS Emergency JAHAIRA ELLIS MD [facility] ER FALL, HEAD INJ [id number] 05/23/2016 11:14:00 05/23/2016 23:59:59 CLS Outpatient LAUREN LOPEZ APRN [facility] RAD FEVER,COUGH [id number] 05/12/2015 14:54:00 05/12/2015 23:59:59 CLS Outpatient JENY QUIROZ MD [facility] RAD CKD STAGE 111 [id number] 05/01/2015 13:38:00 05/01/2015 23:59:59 CLS Outpatient BAY CASTRO MD [facility] WOUNDCARE [id number] 10/21/2013 09:13:00 10/21/2013 09:37:00 DIS Emergency JAHAIRA ELLIS MD [facility] ER SUTURE REMOVAL [id number] 10/12/2013 16:46:00 10/12/2013 17:39:00 DIS Emergency JERONIMO MAYBERRY [employer]ENE BUILDER [facility] ER LEFT RING FINGER LAC [id number] 07/28/2014 08:55:00 Document Registration [id number] 07/28/2014 08:55:00 Document Registration [id number] 07/24/2014 16:04:00 Document Registration [id number] 07/24/2014 16:04:00 Document Registration [id number] 12/23/2010 07:35:00 Document Registration [id number] 07/28/2010 11:02:00 Document Registration [id number] 03/15/2018 14:30:00 03/15/2018 23:59:59 CLS Outpatient SHEILA PICKARD LACI [facility] [id number] 07/28/2014 07:05:00 07/28/2014 23:59:59 CLS Outpatient TESSIE ROYAL FACJACKIE Fischer FACP CCDS [facility] CARD [id number] 07/24/2014 15:30:00 07/25/2014 14:00:00 DIS Inpatient JOHNATHAN BLACK DO [facility] CSD
[2018-06-17 12:00] VITALS: BP 147/76
[2018-06-17] MEDS ORDERED: RIVASTIGMINE 1.5 MG (EXELON) CAP PO NR (14:00)
[2018-06-17 16:42] VITALS: BP 167/72
[2018-06-17] MEDS: RIVASTIGMINE 1.5 MG (EXELON) CAP PO SCH (17:54)
[2018-06-17] MEDS: traZODone 100 MG (DESYREL) TAB PO SCH (19:26)
[2018-06-17] MEDS: TAMSULOSIN 0.4 MG (FLOMAX) CAP PO SCH (19:26)
[2018-06-17 23:06] VITALS: BP 162/76
[2018-06-18] MEDS: RT-ALBUTEROL/IPRATROPIUM 3 ML (DUONEB) VIAL IH SCH ×5 (00:02→20:03)
[2018-06-18] MEDS: RT-ADVAIR HFA 115/21 MCG PER PUFF IH SCH ×3 (00:03→20:04)
[2018-06-18] MEDS: methylPREDNISolone 40 MG/ML (Solu-MEDROL) VIAL IV SCH ×5 (00:38→23:23)
[2018-06-18 05:01] LABS: BASOPHILS % (AUTO) 0 % (0-10); EOSINOPHILS % (AUTO) 0 % (0-10); HEMATOCRIT 32 % (40-54); HEMOGLOBIN 10.8 G/DL (13.3-17.7); LYMPHOCYTES # (AUTO) 0.6 X 10^3 (1.0-4.0); LYMPHOCYTES % (AUTO) 5 % (12-44); MEAN CORPUSCULAR HEMOGLOBIN 31 PG (25-34); MEAN CORPUSCULAR HGB CONC 33 G/DL (32-36); MEAN CORPUSCULAR VOLUME 92 FL (80-99); MEAN PLATELET VOLUME 10.5 FL (7.4-10.4); MONOCYTES # (AUTO) 0.5 X 10^3 (0.0-1.0); MONOCYTES % (AUTO) 4 % (0-12); NEUTROPHILS # (AUTO) 11.2 X 10^3 (1.8-7.8); NEUTROPHILS % (AUTO) 92 % (42-75); PLATELET COUNT 128 10^3/uL (130-400); RED CELL DISTRIBUTION WIDTH 13.1 % (10.0-14.5); WHITE BLOOD COUNT 12.3 10^3/uL (4.3-11.0)
[2018-06-18] MEDS: PANTOPRAZOLE 40 MG (PROTONIX) TAB PO SCH (05:13)
[2018-06-18 05:19] LABS: CALCIUM 9.2 MG/DL (8.5-10.1); CREATININE SERUM 1.54 MG/DL (0.60-1.30); POTASSIUM 4.2 MMOL/L (3.6-5.0)
[2018-06-18 08:00] VITALS: BP 147/72
[2018-06-18] MEDS: FINASTERIDE (PROSCAR) 5 MG TAB PO SCH (08:42)
[2018-06-18] MEDS: POLYETHYLENE GLYCOL 17 GM (MIRALAX) PACK PO SCH ×2 (08:42→20:24)
[2018-06-18] MEDS: CARVEDILOL 12.5 MG (COREG) TABLET PO SCH ×2 (08:42→20:25)
[2018-06-18] MEDS: amLODIPine 10 MG (NORVASC) TAB PO SCH (08:43)
[2018-06-18] MEDS: SERTRALINE 50 MG (ZOLOFT) TABLET PO SCH (08:43)
[2018-06-18] MEDS: MEMANTINE 10 MG (NAMENDA) TABLET PO SCH ×2 (08:46→20:25)
[2018-06-18] MEDS: RIVASTIGMINE 1.5 MG (EXELON) CAP PO SCH ×2 (08:46→18:14)
--- NOTE | 2018-06-18 10:19 | NUR ---
THIS RN RECHECKED TEMPERATURE AFTER GIVING HIM 1 GM OF TYLENOL IT IS NOW 98.2
[2018-06-18] MEDS: VANCOMYCIN 1250 MG/NS 250 ML IVPB IV SCH ×2 (10:24)
[2018-06-18] MEDS ORDERED: POVI3780 TP (11:12)
[2018-06-18] MEDS ORDERED: LORA0.5T PO (11:14)
--- NOTE | 2018-06-18 11:15 | NUR ---
VERIFIED MED REC WITH MAR FROM [facility]. I CALLED THEM TO VERIFY THE DIRECTIONS ON THE LORAZEPAM. THE MAR STATES PO PRN, THEY REPORT THEY CAN GIVE IT Q4H PRN.
--- NOTE | 2018-06-18 15:07 | Progress Note-Hospitalist ---
Progress Note Progress Notes/Assess & Plan Date Seen 06/18/18 Time Seen by Provider: 15:04 Assessment & Plan The patient is a 78-year-old white male who was admitted after he presented to the emergency room yesterday with complaints of shortness of breath. There was no evidence of pneumonia or sepsis and it was concluded that he was having an exacerbation of his COPD. He reports that he has not smoked in 5-10 years. He was taking no medications for bronchospasm at home. He reports he feels much better today. Physical exam: He exhibits a cough without production. Lungs show distant breath sounds without wheezing or rhonchi. CV is regular. Abdomen is soft. Extremities show no pedal edema. He points to the thighs of his jeans and reports that he has lost a great deal of weight. When queried about this he stated that he used to weigh 145 pounds. The weight recorded on the admission measurements show him to weigh 185 pounds. Impression: COPD in exacerbation with improvement. Plan: Continue present meds. If stable or improved tomorrow discharge. ARIANNA CORDERO MD Jun 18, 2018 15:07
--- NOTE | 2018-06-18 15:13 | Pulmonary Consultation ---
History of Present Illness History of Present Illness Date of Consultation 06/18/18 15:12 Time Seen by Provider: 16:20 Date of Admission History of Present Illness 78yo with hx of severe oxygen dependent COPD presented to ED via EMS seocndary to temp of 100.8 and worsening SOB. He was found to be hypoxic with Sp02 of 70% . Pt has also had progressive weakness. No prior episodes like this. I am consulted for pulmonary management. Allergies and Home Medications Allergies Coded Allergies: hydrocodone (Verified Allergy, Unknown, 06/16/18) lisinopril (Verified Allergy, Unknown, 06/16/18) oxycodone (Verified Allergy, Unknown, 06/16/18) phenytoin (Verified Allergy, Unknown, 06/16/18) simvastatin (Verified Allergy, Unknown, 06/16/18) Home Medications Acetaminophen 500 Mg Tablet, 1,000 MG PO Q8H PRN for PAIN-MILD OR TEMPATURE, ( Reported) Amlodipine Besylate 10 Mg Tablet, 10 MG PO DAILY, (Reported) HOLD SBP<100 Budesonide/Formoterol Fumarate 10.2 Gm Hfa.aer.ad, 2 PUFF IH BID, (Reported) Calcium Carbonate/Vitamin D3 1 Each Tablet, 1 TAB PO DAILY, (Reported) Carvedilol 12.5 Mg Tablet, 12.5 MG PO BID, (Reported) HOLD IF SBP<100 OR PULSE <60 Cefdinir 300 Mg Capsule, 300 MG PO TWICE A DAY Prescribed by: ARIANNA CORDERO on 06/19/18 1141 Dextromethorphan HBr 15 Mg/5 Ml Syrup, PO UD PRN for COUGH, (Reported) Docusate Sodium 100 Mg Capsule, 100 MG PO BID, (Reported) Ferrous Sulfate 325 Mg Tablet, 325 MG PO DAILY, (Reported) Finasteride 5 Mg Tablet, 5 MG PO DAILY, (Reported) Folic Acid 1 Mg Tablet, 1 MG PO DAILY, (Reported) Lorazepam 0.5 Mg Tablet, 0.5 MG PO Q4H PRN for ANXIETY, (Reported) Melatonin 3 Mg Tablet, 3 MG PO HS, (Reported) Memantine HCl 10 Mg Tablet, 10 MG PO BID, (Reported) Pantoprazole Sodium 40 Mg Tablet.dr, 40 MG PO DAILY, (Reported) Polyethylene Glycol 3350 17 Gm Powd.pack, 17 GM PO 0800,1700, (Reported) Povidone-Iodine 3,780 Ml Solution, TP BID, (Reported) TO LT OPEN AREA RE-OPENED Prednisone 2.5 Mg Tablet, 2.5 MG PO DAILY, (Reported) Rivastigmine 9.5 Mg Patch, 9.5 MG TD DAILY, (Reported) Sertraline HCl 50 Mg Tablet, 75 MG PO DAILY, (Reported) TAKES 1 & 1/2 (50MG) TABLET Simvastatin 20 Mg Tablet, 20 MG PO HS, (Reported) Tamsulosin HCl 0.4 Mg Cap.er.24h, 0.4 MG PO 1999, (Reported) Trazodone HCl 100 Mg Tablet, 100 MG PO HS, (Reported) [Sensitive Eyes] , 1 DROP OU UD PRN for DRY EYES, (Reported) Past Oufsbwn-Xempxw-Kadcan Hx Past Med/Social Hx: Reviewed Nursing Past Med/Soc Hx Patient Social History Alcohol Use: Rarely Uses Number of Drinks Today: 0 Recreational Drug Use: No Smoking Status: Former Smoker Type Used: Cigarettes Former Smoker, Quit: Apr 17, 1986 2nd Hand Smoke Exposure: No Recent Foreign Travel: No Contact w/Someone Who Travel: No Recent Infectious Disease Expo: No Recent Hopitalizations: No Immunizations Up To Date Tetanus Booster (TDap): Less than 5yrs Date of Influenza Vaccine: Jan 30, 2018 Seasonal Allergies Seasonal Allergies: No Past Medical History Surgeries: Yes Abdominal, Bladder Surgery, Eye Surgery, Tonsillectomy, Vascular Surgery Respiratory: Yes (PCP PNEUMONIA) Pneumonia Cardiac: Yes High Cholesterol, Hypertension Neurological: Yes Dementia Genitourinary: Yes Benign Prostatic Hyperpl, Prostate Problems Gastrointestinal: Yes Abdominal Hernia, Gastroesophageal Reflux, Chronic Constipation Musculoskeletal: Yes Arthritis Endocrine: Yes HEENT: Yes Cataract Cancer: No Psychosocial: Yes Sleep Difficulties, Anxiety, Depression Integumentary: No Blood Disorders: No Adverse Reaction/Blood Tranf: No Family Medical History Reviewed Nursing Family Hx Alzheimer's disease 19 MOTHER, Diabetes mellitus 19 FATHER, , Age:60 years and older Myocardial infarction 19 FATHER, , Age:60 years and older Review of Systems Time Seen by Provider: 16:22 Constitutional: Fever, Chills, Sweats, Weakness, Malaise, Other Eyes: No: Pain, Vision change, Conjunctivae inflammation, Eyelid inflammation, Other, Redness ENT: Nose congestion; No: Ear pain, Ear discharge, Nose pain, Nose discharge, Mouth pain, Mouth swelling, Throat pain, Throat swelling, Other Respiratory: Cough, Dry, Shortness of breath, SOB with excertion, Wheezing, Other; No: Hemoptysis, Pleuritic Pain, Sputum, Wheezing Cardiovascular: Chest Pain, Palpitations, Paroxysmal Noc. Dyspnea Gastrointestinal: Nausea, Vomiting, Diarrhea; No: Constipation Genitourinary: No Dysuria, No Frequency, No Incontinence, No Hematuria, No Retention, No Other Neurological: Weakness, Numbness, Confusion Sepsis Event Evaluation Height, Weight, BMI Height: 5'11.00" Weight: 186lbs. 2.0oz. 84.524463fu; 26.0 BMI Method:Stated Exam Exam Vital Signs Date Time Temp Pulse Resp B/P (MAP) Pulse Ox O2 Delivery O2 Flow Rate FiO2 06/18/18 14:07 94 Room Air 06/18/18 08:42 99.1 06/18/18 08:00 99.1 66 16 147/72 (97) 94 Nasal Cannula 2.00 06/18/18 07:54 93 Nasal Cannula 1.00 06/17/18 23:06 98.8 85 18 162/76 (104) 98 Nasal Cannula 2.00 06/17/18 20:57 Nasal Cannula 2.00 06/17/18 16:42 97.8 83 16 167/72 (103) 96 Room Air I & O 06/18/18 07:00 Intake Total 1977.5 ml Output Total 300 ml Balance 1677.5 ml Height & Weight Height: 5'11.00" Weight: 186lbs. 2.0oz. 84.610724zh; 26.0 BMI Method:Stated General Appearance: No Apparent Distress, Chronically ill HEENT: PERRL/EOMI, Moist Mucous Membranes; No Scleral Icterus (L), No Scleral Icterus (R) Respiratory: No Accessory Muscle Use, No Respiratory Distress, Wheezing, Other (on oxygen) Cardiovascular: Regular Rate, Rhythm, No Murmur, Normal Peripheral Pulses Capillary Refill: Less Than 3 Seconds Gastrointestinal: normal bowel sounds, non tender, soft, no organomegaly Extremity: Non Tender, No Calf Tenderness, No Pedal Edema Neurologic/Psychiatric: Alert, Other (oriented to self) Skin: Normal Color, Warm/Dry Results Lab Laboratory Tests 06/17/18 05:05 06/18/18 04:45 Assessment/Plan Assessment/Plan COPDAE -SVNS -Steroids/solumedrol ZONIA BARKLEY DO Jun 18, 2018 15:13
[2018-06-18 15:58] VITALS: BP 132/78
[2018-06-18] MEDS: TAMSULOSIN 0.4 MG (FLOMAX) CAP PO SCH (20:24)
[2018-06-18] MEDS: traZODone 100 MG (DESYREL) TAB PO SCH (20:25)
[2018-06-19] VITALS: BP 147/71
[2018-06-19] MEDS: methylPREDNISolone 40 MG/ML (Solu-MEDROL) VIAL IV SCH ×2 (06:20→11:15)
[2018-06-19] MEDS: PANTOPRAZOLE 40 MG (PROTONIX) TAB PO SCH (06:22)
[2018-06-19 08:00] VITALS: BP 165/92
[2018-06-19] MEDS: CARVEDILOL 12.5 MG (COREG) TABLET PO SCH (08:13)
[2018-06-19] MEDS: amLODIPine 10 MG (NORVASC) TAB PO SCH (08:13)
[2018-06-19] MEDS: POLYETHYLENE GLYCOL 17 GM (MIRALAX) PACK PO SCH (08:13)
[2018-06-19] MEDS: MEMANTINE 10 MG (NAMENDA) TABLET PO SCH (08:13)
[2018-06-19] MEDS: FINASTERIDE (PROSCAR) 5 MG TAB PO SCH (08:13)
[2018-06-19] MEDS: RIVASTIGMINE 1.5 MG (EXELON) CAP PO SCH (08:13)
[2018-06-19] MEDS: SERTRALINE 50 MG (ZOLOFT) TABLET PO SCH (08:13)
[2018-06-19] MEDS ORDERED: TROUGH ORDER-PHARMACY XX NR (09:00)
--- NOTE | 2018-06-19 09:00 | Pulmonary Progress Note ---
Subjective Time Seen by a Provider: 16:33 Subjective/Events-last exam No complications noted. Sepsis Event Evaluation Height, Weight, BMI Height: 5'11.00" Weight: 186lbs. 2.0oz. 84.877719tb; 26.0 BMI Method:Stated Exam Exam Vital Signs Date Time Temp Pulse Resp B/P (MAP) Pulse Ox O2 Delivery O2 Flow Rate FiO2 06/19/18 08:00 97 Room Air 06/19/18 00:00 98.3 83 18 147/71 (96) 97 Room Air 06/18/18 20:05 97 Room Air 06/18/18 20:00 Room Air 06/18/18 15:58 98.3 82 18 132/78 (96) 95 Room Air 06/18/18 14:07 94 Room Air I & O 06/19/18 07:00 Intake Total 2102.5 ml Balance 2102.5 ml Height & Weight Height: 5'11.00" Weight: 186lbs. 2.0oz. 84.692657xl; 26.0 BMI Method:Stated General Appearance: No Apparent Distress, Chronically ill HEENT: PERRL/EOMI, Moist Mucous Membranes; No Scleral Icterus (L), No Scleral Icterus (R) Respiratory: No Accessory Muscle Use, No Respiratory Distress, Wheezing, Other (on oxygen) Cardiovascular: Regular Rate, Rhythm, No Murmur, Normal Peripheral Pulses Capillary Refill: Less Than 3 Seconds Gastrointestinal: normal bowel sounds, non tender, soft, no organomegaly Extremity: Non Tender, No Calf Tenderness, No Pedal Edema Neurologic/Psychiatric: Alert, Other (oriented to self) Skin: Normal Color, Warm/Dry Results Lab Laboratory Tests 06/18/18 04:45 Assessment/Plan Assessment/Plan COPDAE -SVNS -Steroids/solumedrol ZONIA BARKLEY DO Jun 19, 2018 09:00
[2018-06-19] MEDS: RT-ALBUTEROL/IPRATROPIUM 3 ML (DUONEB) VIAL IH SCH ×2 (10:22→10:24)
[2018-06-19] MEDS: RT-ADVAIR HFA 115/21 MCG PER PUFF IH SCH (10:24)
[2018-06-19] MEDS: VANCOMYCIN 1250 MG/NS 250 ML IVPB IV SCH ×2 (11:15)
--- NOTE | 2018-06-19 11:35 | Progress Note-Hospitalist ---
Progress Note Progress Notes/Assess & Plan Date Seen 06/19/18 Time Seen by Provider: 11:32 Assessment & Plan The patient is up and about and walking in the hallways. He states that he feels back to his normal level of energy in performance. There is no complaint of shortness of breath. He is anxious to be discharged. Physical exam: He is pleasant and alert. Lungs are clear to auscultation. CV is regular. Abdomen is soft. Extremities show no pedal edema. Impression: Acute exacerbation of COPD. 2.blood cultures positive for staph epidermidis 3. Plan: Discharge. See discharge sequence for medications and ARIANNA CORDERO MD Jun 19, 2018 11:35
[2018-06-19] MEDS ORDERED: CEFD300C3 PO (11:41)
--- NOTE | 2018-06-19 11:43 | Discharge Inst-Simple/Standard ---
Discharge Inst-Standard Discharge Medications New, Converted or Re-Newed RX: Transmitted to Pharmacy Patient Instructions/Follow Up Plan of Care/Instructions/FU: Medications as listed on the discharge sequence. New antibiotic to be taken twice daily. Take all of them. Resume your breathing medications Activity as Tolerated: Yes Goal: and return to previous state of health Discharge Diet: No Restrictions ARIANNA CORDERO MD Jun 19, 2018 11:43
--- NOTE | 2018-06-19 11:58 | NUR ---
Important Message from Medicare presented/reviewed/signed and charted. Patient voiced no intention to appeal and deny any needs or further questions at this time. Patient is dressed and ready to be d/c today.
--- NOTE | 2018-06-19 15:01 | NUR ---
CM/SS. Patient has established residency with [facility] in [place] and is returning there today via their transport. Unit RN has given updates to their RN/Yanelisrene. Continuum of care packet will accompany patient.
[2018-06-19 15:15] VITALS: BP 165/92
--- NOTE | 2018-06-20 13:49 | Physician Query Clarification ---
PQ-Further Specificity Admission/Discharge Admission Date: Jun 16, 2018 at 15:06 Discharge Date: Jun 19, 2018 at 16:36 The medical record reflects the following clinical scenario: History/Risk Factors: COPDAE Clinical Findings: Positive blood cultures staph epidermidis, Procalcitonin 0.08, WBC 7.2 Treatment: Cefdinir PO on dismissal Question: Can you further specify positive blood culture - staph epidermidis per the clinical indicators above? Please document below. 1. staph epidermidis septicemia 2. bacteremia 3. Contaminant 4. Other, with explanation of the clinical findings. 5. Clinically undetermined, no explanation for the clinical findings. In responding to this query, please exercise your independent professional judgment. The purpose of this communication is to more accurately reflect the complexity of your patients condition. The fact that a question is asked does not imply that any particular answer is desired or expected. Thank you for your timely response to this clarification. Requestors name: Rogelio THIS PHYSICIAN QUERY FORM IS A PERMANENT PART OF THE MEDICAL RECORD ROGELIO MULLEN Jun 20, 2018 13:49
--- NOTE | 2018-07-04 14:39 | Discharge Summary-Hospitalist ---
Diagnosis/Chief Complaint Date of Admission Jun 16, 2018 at 15:06 Date of Discharge Jun 19, 2018 at 16:36 Discharge Date: Jun 19, 2018 Admission Diagnosis COPD Exacerbation Discharge Diagnosis COPD in exacerbation. 2.mild to moderate dementia. (1) COPD exacerbation Status: Acute Assessment & Plan: No evidence of infection ( no leukocytosis, fever, CXR clear) Will DC abx Treat with steroids SVNs Titrate oxygen to keep sats >90 ON chronic daily steroids so likely severe COPD Will check procalcitonin (2) Dementia Status: Chronic Assessment & Plan: Pleasantly confused NH RN came to bedside and reportedly he is at his baseline (3) Essential (primary) hypertension Status: Chronic Assessment & Plan: Resume home medications Discharge Summary Discharge Physical Exam Allergies: Coded Allergies: hydrocodone (Verified Allergy, Unknown, 06/16/18) lisinopril (Verified Allergy, Unknown, 06/16/18) oxycodone (Verified Allergy, Unknown, 06/16/18) phenytoin (Verified Allergy, Unknown, 06/16/18) simvastatin (Verified Allergy, Unknown, 06/16/18) General Appearance: No Apparent Distress Hospital Course Was the Problem List Reviewed?: Yes The patient was a 78-year-old white male who was admitted after he presented to the emergency room with rather vague complaints. He exhibited a degree of confusion. He was initially hypoxic but responded to bronchodilators by nebulizer. After 24 hours his antibiotics were discontinued as there was no apparent site of infection. He continued to improve and was discharged in improved condition. Medications and activities are detailed on the discharge sequence. Labs (last 24 hrs) Microbiology 06/16/18 Blood Culture - Final, Complete Staphylococcus epidermidis Staphylococcus hominis 06/16/18 Gram Stain - Final, Complete 06/16/18 Sputum Culture - Final, Complete Usual upper respiratory franco Patient resulted labs reviewed. Imaging: Reviewed Imaging Report Discussion & Recommendations Discharge Planning: >30 minutes discharge planning Discharge Home Medications: Active Scripts Active Cefdinir 300 Mg Capsule 300 Mg PO TWICE A DAY Reported Lorazepam 0.5 Mg Tablet 0.5 Mg PO Q4H PRN Betadine (Povidone-Iodine) 3,780 Ml Solution TP BID TO LT OPEN AREA RE-OPENED Tussin Cough (Dextromethorphan HBr) 15 Mg/5 Ml Syrup PO UD PRN [Sensitive Eyes] 1 Drop OU UD PRN Symbicort 160-4.5 Mcg Inhaler (Budesonide/Formoterol Fumarate) 10.2 Gm Hfa.aer.ad 2 Puff IH BID Tylenol Extra Strength (Acetaminophen) 500 Mg Tablet 1,000 Mg PO Q8H PRN Sertraline HCl 50 Mg Tablet 75 Mg PO DAILY TAKES 1 & 1/2 (50MG) TABLET Trazodone HCl 100 Mg Tablet 100 Mg PO HS Protonix (Pantoprazole Sodium) 40 Mg Tablet.dr 40 Mg PO DAILY Amlodipine Besylate 10 Mg Tablet 10 Mg PO DAILY HOLD SBP<100 Melatonin 3 Mg Tablet 3 Mg PO HS Miralax (Polyethylene Glycol 3350) 17 Gm Powd.pack 17 Gm PO 0800,1700 Exelon (Rivastigmine) 9.5 Mg Patch 9.5 Mg TD DAILY Docusate Sodium 100 Mg Capsule 100 Mg PO BID Prednisone 2.5 Mg Tablet 2.5 Mg PO DAILY Tamsulosin HCl 0.4 Mg Cap.er.24h 0.4 Mg PO 2000 Ferrous Sulfate 325 Mg Tablet 325 Mg PO DAILY Folic Acid 1 Mg Tablet 1 Mg PO DAILY Finasteride 5 Mg Tablet 5 Mg PO DAILY Simvastatin 20 Mg Tablet 20 Mg PO HS Memantine HCl 10 Mg Tablet 10 Mg PO BID Calcium 600 + Vit D 400 Tablet (Calcium Carbonate/Vitamin D3) 1 Each Tablet 1 Tab PO DAILY Carvedilol 12.5 Mg Tablet 12.5 Mg PO BID HOLD IF SBP<100 OR PULSE <60 Instructions to patient/family Please see electronic discharge instructions given to patient. Clinical Quality Measures DVT/VTE Risk/Contraindication: Risk Factor Score Per Nursin RFS Level Per Nursing on Admit: 4+=Very High Problem Qualifiers (1) Dementia: Dementia type: unspecified type Dementia behavioral disturbance: without behavioral disturbance Qualified Codes: F03.90 - Unspecified dementia without behavioral disturbance ARIANNA CORDERO MD Jul 04, 2018 14:39
== END 2018-06-19 16:36 | DRG 192 ==
LOC: EDUNIT# 05:23 → ER 05:25 → UNDOADMOB 07:20 → 4TH 07:20 → INTOOBSV 15:06 → OBSVTOIN 15:06 → UNDODISIN 06-19 16:36
PROVIDERS: ADMIT Family Medicine; ATTEND Family Medicine
DX: J44.1 Chronic obstructive pulmonary disease with (acute) exacerbation (principal); R09.02 Hypoxemia; I10 Essential (primary) hypertension; E78.00 Pure hypercholesterolemia, unspecified; F03.90 Unspecified dementia, unspecified severity, without behavioral disturbance, psychotic disturbance, mood disturbance, and anxiety; N40.0 Benign prostatic hyperplasia without lower urinary tract symptoms; K21.9 Gastro-esophageal reflux disease without esophagitis; K59.09 Other constipation; F41.9 Anxiety disorder, unspecified; F32.9 Major depressive disorder, single episode, unspecified
CPT/HCPCS: 36415; 71045; 80048; 80053; 80202; 84145; 85007; 85025; 85027; 86141; 87040; 87070; 87077; 87186; 87205; 87804; 94640; 94664; 94760; 96361; 96374; 96375; G0378

== ENCOUNTER 2018-08-08 19:14 | Inpatient (IN) | payer MEDICARE ==
[~2018-08-08] VITALS: Ht 180.3 cm; Wt 85.4 kg
[~2018-08-08 19:14] MED LIST changes: +CEFD300C3 PO; +LORA-404 PO; +LORA0.5T PO; +POVI3780 TP
--- NOTE | 2018-08-08 19:28 | ED General ---
General Stated Complaint: WEAKNESS,TACHYCARDIA Source of Information: Patient, EMS, Old Records Exam Limitations: No Limitations History of Present Illness Date Seen by Provider: Aug 08, 2018 Time Seen by Provider: 19:15 Initial Comments Patient presents to ER by EMS with chief complaint of fever 103.3 per long term [facility] states and 3.7 per EMS. Blood sugar was 201 per EMS. Patient does not really endorse any pain or nausea right now. He is been lethargic today so they held his risperidone and Tagamet. He recently got out of [employer] for hypersexual his behavior. He has dementia. He is incontinent of bladder at baseline. Allergies and Home Medications Allergies Coded Allergies: hydrocodone (Verified Allergy, Unknown, 06/16/18) lisinopril (Verified Allergy, Unknown, 06/16/18) oxycodone (Verified Allergy, Unknown, 06/16/18) phenytoin (Verified Allergy, Unknown, 06/16/18) Home Medications Acetaminophen 500 Mg Tablet, 1,000 MG PO Q8H PRN for PAIN-MILD OR TEMPATURE, ( Reported) Amlodipine Besylate 10 Mg Tablet, 10 MG PO DAILY, (Reported) HOLD SBP<100 Budesonide/Formoterol Fumarate 10.2 Gm Hfa.aer.ad, 2 PUFF IH BID, (Reported) Calcium Carbonate/Vitamin D3 1 Each Tablet, 1 TAB PO DAILY, (Reported) Carvedilol 12.5 Mg Tablet, 12.5 MG PO BID, (Reported) HOLD IF SBP<100 OR PULSE <60 Cimetidine 200 Mg Tablet, 200 MG PO BID, (Reported) Docusate Sodium 100 Mg Capsule, 100 MG PO BID, (Reported) Ferrous Sulfate 325 Mg Tablet, 325 MG PO DAILY, (Reported) Finasteride 5 Mg Tablet, 5 MG PO DAILY, (Reported) Folic Acid 1 Mg Tablet, 1 MG PO DAILY, (Reported) Pantoprazole Sodium 40 Mg Tablet.dr, 40 MG PO DAILY, (Reported) Risperidone 0.5 Mg Tablet, 0.5 MG PO TID, (Reported) Simvastatin 20 Mg Tablet, 20 MG PO HS, (Reported) Tamsulosin HCl 0.4 Mg Cap.er.24h, 0.4 MG PO 2000, (Reported) [Sensitive Eyes] , 1 DROP OU UD PRN for DRY EYES, (Reported) Patient Home Medication List Home Medication List Reviewed: Yes Review of Systems Review of Systems Constitutional: No chills, No diaphoresis EENTM: No ear discharge, No ear pain Respiratory: No cough, No short of breath Cardiovascular: No chest pain, No edema Gastrointestinal: No abdominal pain, No nausea Genitourinary: No discharge, No dysuria Past Twcyegq-Tzzilg-Wkdawv Hx Patient Social History Alcohol Use: Denies Use Recreational Drug Use: No Smoking Status: Former Smoker Type Used: Cigarettes Former Smoker, Quit: Apr 17, 1986 2nd Hand Smoke Exposure: No Recent Foreign Travel: No Contact w/Someone Who Travel: No Recent Hopitalizations: No Immunizations Up To Date Tetanus Booster (TDap): Less than 5yrs Date of Influenza Vaccine: Jan 30, 2018 Seasonal Allergies Seasonal Allergies: No Past Medical History Surgeries: Yes Abdominal, Bladder Surgery, Eye Surgery, Tonsillectomy, Vascular Surgery Respiratory: Yes (PCP PNEUMONIA) Pneumonia Cardiac: Yes High Cholesterol, Hypertension Neurological: Yes Dementia Genitourinary: Yes Benign Prostatic Hyperpl, Prostate Problems Gastrointestinal: Yes Abdominal Hernia, Gastroesophageal Reflux, Chronic Constipation Musculoskeletal: Yes Arthritis Endocrine: Yes HEENT: Yes Cataract Cancer: No Psychosocial: Yes Sleep Difficulties, Anxiety, Depression Integumentary: No Blood Disorders: No Adverse Reaction/Blood Tranf: No Family Medical History Alzheimer's disease 19 MOTHER, Diabetes mellitus 19 FATHER, , Age:60 years and older Myocardial infarction 19 FATHER, , Age:60 years and older Physical Exam-Suspected Sepsis Physical Exam Vital Signs Vital Signs - First Documented 08/08/18 19:14 Temp 102.3 Pulse 122 Resp 20 B/P (MAP) 174/95 (121) Pulse Ox 95 O2 Delivery Nasal Cannula O2 Flow Rate 2.00 Capillary Refill : Height, Weight, BMI Height: 5'11.00" Weight: 186lbs. 2.0oz. 84.823370nh; 26.0 BMI Method:Stated General Appearance: Chronically ill, Mild Distress Eyes: Bilateral Eye Normal Inspection, Bilateral Eye PERRL, Bilateral Eye EOMI HEENT: PERRL/EOMI, TMs Normal, Normal ENT Inspection, Pharynx Normal, Moist Mucous Membranes Neck: Full Range of Motion, Normal Inspection, Non Tender, Supple Respiratory: Chest Non Tender, Lungs Clear, Normal Breath Sounds, No Accessory Muscle Use, No Respiratory Distress Cardiovascular: Regular Rate, Rhythm, No Edema, No Murmur, Normal Peripheral Pulses Gastrointestinal: Normal Bowel Sounds, No Organomegaly, Non Tender, Soft Extremity: Normal Capillary Refill, Normal Inspection, No Pedal Edema Neurologic/Psychiatric: Alert, Oriented x3, No Motor/Sensory Deficits Skin: normal color, warm/dry Focused Exam Sepsis Stage: Septic Shock Lactate Level 08/08/18 19:30: Lactic Acid Level 1.59 Time of Focused Exam: 23:24 Respiratory: Chest Non Tender, Lungs Clear, Normal Breath Sounds, No Accessory Muscle Use, No Respiratory Distress Cardiovascular: Regular Rate, Rhythm, No Edema, No Gallop, Normal Peripheral Pulses Capillary Refill: Less Than 3 Seconds Peripheral Pulses: 2+ Radial Pulses (R), 2+ Radial Pulses (L) Skin: normal color, warm/dry Lactic Acid Level Within 3hrs of presentation: Admin fluids, Admin ABX, Blood cultures prior to ABX's, Focus exam, Lactate level, Vasopressin therapy Procedures/Interventions Lumen: triple Central Line Procedure: betadine prep Position: internal jugular (R) Anesthesia: Lidocaine Volume Anesthetic (ccs): 3 Complications: none Post Position: sutured Central line placed under supervision by Sebastián Hogue, nurse practitioner. Chest x-ray confirmed good position on the right side of the chest not crossing the midline with the distal tip of the central catheter in the superior vena cava just at the level of the atria right side. The patient did not experience any complications. There are good lung markings. No ectopic changes noted on EKG. Progress/Results/Core Measures Suspected Sepsis SIRS Temperature: Pulse: Respiratory Rate: Laboratory Tests 08/08/18 19:30: White Blood Count 13.6H Blood Pressure / Mean: 08/08/18 19:30: Lactic Acid Level 1.59 Laboratory Tests 08/08/18 19:30: Creatinine 1.97H, INR Comment 1.1, Platelet Count 235, Total Bilirubin 0.5 Results/Orders Lab Results Laboratory Tests Test 08/08/18 19:30 08/08/18 20:00 Range/Units White Blood Count 13.6 H 4.3-11.0 10^3/uL Red Blood Count 4.02 L 4.35-5.85 10^6/uL Hemoglobin 12.1 L 13.3-17.7 G/DL Hematocrit 37 L 40-54 % Mean Corpuscular Volume 92 80-99 FL Mean Corpuscular Hemoglobin 30 25-34 PG Mean Corpuscular Hemoglobin Concent 33 32-36 G/DL Red Cell Distribution Width 12.9 10.0-14.5 % Platelet Count 235 130-400 10^3/uL Mean Platelet Volume 10.1 7.4-10.4 FL Neutrophils (%) (Auto) 85 H 42-75 % Lymphocytes (%) (Auto) 7 L 12-44 % Monocytes (%) (Auto) 7 0-12 % Eosinophils (%) (Auto) 1 0-10 % Basophils (%) (Auto) 0 0-10 % Neutrophils # (Auto) 11.5 H 1.8-7.8 X 10^3 Lymphocytes # (Auto) 0.9 L 1.0-4.0 X 10^3 Monocytes # (Auto) 1.0 0.0-1.0 X 10^3 Eosinophils # (Auto) 0.1 0.0-0.3 10^3/uL Basophils # (Auto) 0.0 0.0-0.1 10^3/uL Neutrophils % (Manual) 85 % Lymphocytes % (Manual) 10 % Monocytes % (Manual) 3 % Eosinophils % (Manual) 2 % Basophils % (Manual) 0 % Band Neutrophils 0 % Blood Morphology Comment NORMAL Prothrombin Time 15.1 H 12.2-14.7 SEC INR Comment 1.1 0.8-1.4 Activated Partial Thromboplast Time 32 24-35 SEC Sodium Level 138 135-145 MMOL/L Potassium Level 4.2 3.6-5.0 MMOL/L Chloride Level 102 98-107 MMOL/L Carbon Dioxide Level 23 21-32 MMOL/L Anion Gap 13 5-14 MMOL/L Blood Urea Nitrogen 34 H 7-18 MG/DL Creatinine 1.97 H 0.60-1.30 MG/DL Estimat Glomerular Filtration Rate 33 BUN/Creatinine Ratio 17 Glucose Level 188 H 70-105 MG/DL Lactic Acid Level 1.59 0.50-2.00 MMOL/L Calcium Level 9.7 8.5-10.1 MG/DL Corrected Calcium 9.9 8.5-10.1 MG/DL Total Bilirubin 0.5 0.1-1.0 MG/DL Aspartate Amino Transf (AST/SGOT) 36 H 5-34 U/L Alanine Aminotransferase (ALT/SGPT) 28 0-55 U/L Alkaline Phosphatase 43 40-136 U/L Total Protein 7.8 6.4-8.2 GM/DL Albumin 3.8 3.2-4.5 GM/DL Urine Color YELLOW Urine Clarity CLEAR Urine pH 7 5-9 Urine Specific [place] 1.010 L 1.016-1.022 Urine Protein 2+ H NEGATIVE Urine Glucose (UA) NEGATIVE NEGATIVE Urine Ketones NEGATIVE NEGATIVE Urine Nitrite NEGATIVE NEGATIVE Urine Bilirubin NEGATIVE NEGATIVE Urine Urobilinogen NORMAL NORMAL MG/DL Urine Leukocyte Esterase NEGATIVE NEGATIVE Urine RBC (Auto) NEGATIVE NEGATIVE Urine RBC NONE /HPF Urine WBC 0-2 /HPF Urine Crystals NONE /LPF Urine Bacteria NEGATIVE /HPF Urine Casts NONE /LPF Urine Mucus NEGATIVE /LPF Urine Culture Indicated NO Micro Results Microbiology 08/08/18 Influenza Types A,B Antigen (LEANNE) - Final, Complete My Orders Orders - ILIANA SQUIRES Cbc With Automated Diff (08/08/18 19:25) Comprehensive Metabolic Panel (08/08/18:25) Blood Culture (08/08/18:25) Sputum Culture (08/08/18:) Urinalysis (08/08/18:) Urine Culture (08/08/18:25) Protime With Inr (08/08/18:) Partial Thromboplastin Time (08/08/18:25) Chest 1 View, Ap/Pa Only (08/08/18:25) Acetaminophen Tablet (Tylenol Tablet) (08/08/18 19:30) Ed Iv/Invasive Line Start (08/08/18 19:25) Ed Iv/Invasive Line Start (08/08/18 19:25) Vital Signs Adult Sepsis Patie Q15M (08/08/18 19:25) O2 (08/08/18 19:25) Remove Rings In Anticipation O (08/08/18 19:25) Lactic Acid Analyzer (08/08/18 19:25) Influenza A And B Antigens (08/08/18:25) Ns Iv 1000 Ml (Sodium Chloride 0.9%) (08/08/18 19:25) Cefepime Injection (Maxipime Injection) (08/08/18 19:30) Manual Differential (08/08/18 19:30) Ed Iv/Invasive Line Start (08/08/18 21:19) Ns Iv 1000 Ml (Sodium Chloride 0.9%) (08/08/18 21:19) Chest 1 View, Ap/Pa Only (08/08/18 22:31) D5w Iv Solution ([place]) (Dextrose 5% Danyelle (08/08/18 22:36) Norepinephrine (Levophed) (08/08/18 22:36) Ns (Ivpb) (Sodium Chloride 0.9%) (08/08/18 23:55) Norepinephrine (Levophed) (08/08/18 23:55) D5w Iv Solution ([place]) (Dextrose 5% Danyelle (08/09/18 00:01) Norepinephrine (Levophed) (08/09/18 00:01) Medications Given in ED Current Medications Medications Dose Ordered Sig/Maddy Route Start Time Stop Time Status Last Admin Dose Admin Acetaminophen 1,000 mg ONCE PRN PO 08/08/18 19:30 08/08/18 19:39 DC 08/08/18 19:39 1,000 MG Cefepime HCl 1000 mg/Sterile Water 10 ml @ 200 mls/hr ONCE ONCE IV 08/08/18 19:30 08/08/18 19:32 DC 08/08/18 20:02 200 MLS/HR Vital Signs/I&O 08/08/18 08/08/18 08/08/18 08/08/18 19:14 19:30 19:39 23:00 Temp 102.3 102.3 98.8 Pulse 122 106 Resp 20 16 B/P (MAP) 174/95 (121) 94/61 (72) Pulse Ox 95 95 97 O2 Delivery Nasal Cannula Nasal Cannula Nasal Cannula O2 Flow Rate 2.00 2.00 2.00 08/09/18 00:00 Intake Total 10 ml Balance 10 ml Capillary Refill : Progress Note #1: Time: 21:45 Progress Note Patient blood pressure dipped with a map of 66-69 and we discussed with him doing a central line to start pressors. We have initiated a third liter which would put him over 30 cc/kg. The patient has declined the central line or the pressors. We discussed with him why and he says it is okay and was wants to take a chance that he doesn't need them. He has been hospitalized multiple times for pneumonia recently and he is alert, oriented to person place and time and we were going on. He is also decided the possible bad outcomes if he elects not to use pressors. We discussed with the POA, daughter MARIELOS and she is on the phone with him now. Progress Note #2: Time: 22:15 Progress Note A central line was placed. The patient had a long discussion with his daughter and decided to go ahead and start pressors. We initiated pressors and his map improved significantly. Patient was transferred to ICU. Diagnostic Imaging Diagonstic Imaging: Xray Plain Films/CT/US/NM/MRI: chest Comments [facility], [place] NAME: BELA RODRIGUES [facility] REC#: [id number] PT STATUS: REG ER : 1940 PHYSICIAN: ILIANA SQUIRES MD ADMIT DATE: 08/08/18/ER Draft Date of Exam:08/08/18 CHEST 1 VIEW, AP/PA ONLY EXAMINATION: Portable chest. COMPARISON: Prior study from 06/17/2018. INDICATION: Fever. FINDINGS: Lung volumes are diminished. There appears to be some mild patchy atelectasis or infiltrate at the right lung base. Trace effusions cannot be excluded. There is chronic interstitial edema within the lungs. Heart size is mildly prominent without evidence of failure. IMPRESSION: Low lung volumes with patchy right base atelectasis or infiltrate and possible trace effusions. Dictated on workstation # [id number] Dict: 08/08/182012 Trans: 08/08/182017 [facility] [phone] Interpreted by: LINWOOD ENGLE MD Electronically signed by: Reviewed: Reviewed by Me Departure Communication (Admissions) Time/Spoke to Admitting Phy: 21:26 Discussed case lab imaging findings and he agrees to accept the patient. Impression Primary Impression: Pneumonia Qualified Codes: J18.1 - Lobar pneumonia, unspecified organism Additional Impression: Septic shock Disposition: ADMITTED INPATIENT Condition: Stable Admissions Decision to Admit Reason: Admit from ER (General) Decision to Admit/Date: Aug 08, 2018 Time/Decision to Admit Time: 21:29 Departure-Patient Inst. Referrals: JAMA ISAACS MD (PCP/Family) Primary Care Physician ILIANA SQUIRES Aug 08, 2018 19:28
[2018-08-08] MEDS ORDERED: ACETAMINOPHEN 500 MG TAB (TYLENOL) PO PRN (19:30)
[2018-08-08] MEDS ORDERED: CEFEPIME INJECTION 1,000 MG in WATER (STERILE) FOR INJECTION 10 ML IV ONE (19:30)
[2018-08-08] MEDS: NS IV 1000 ML 1,000 ML IV SCH ×2 (19:39→20:23)
[2018-08-08 19:45] LABS: BASOPHILS % (AUTO) 0 % (0-10); EOSINOPHILS # (AUTO) 0.1 10^3/uL (0.0-0.3); EOSINOPHILS % (AUTO) 1 % (0-10); HEMATOCRIT 37 % (40-54); HEMOGLOBIN 12.1 G/DL (13.3-17.7); LYMPHOCYTES # (AUTO) 0.9 X 10^3 (1.0-4.0); LYMPHOCYTES % (AUTO) 7 % (12-44); MEAN CORPUSCULAR HEMOGLOBIN 30 PG (25-34); MEAN CORPUSCULAR HGB CONC 33 G/DL (32-36); MEAN CORPUSCULAR VOLUME 92 FL (80-99); MEAN PLATELET VOLUME 10.1 FL (7.4-10.4); MONOCYTES % (AUTO) 7 % (0-12); NEUTROPHILS # (AUTO) 11.5 X 10^3 (1.8-7.8); NEUTROPHILS % (AUTO) 85 % (42-75); PLATELET COUNT 235 10^3/uL (130-400); RED CELL DISTRIBUTION WIDTH 12.9 % (10.0-14.5); WHITE BLOOD COUNT 13.6 10^3/uL (4.3-11.0)
[2018-08-08 20:06] LABS: INR 1.1 (0.8-1.4); PROTHROMBIN TIME PATIENT 15.1 SEC (12.2-14.7)
[2018-08-08 20:09] LABS: BILIRUBIN,URINE NEGATIVE (NEGATIVE); CLARITY,URINE CLEAR; COLOR,URINE YELLOW; GLUCOSE, URINE (UA) NEGATIVE (NEGATIVE); KETONES,URINE NEGATIVE (NEGATIVE); LEUKOCYTE ESTERASE ,URINE NEGATIVE (NEGATIVE); NITRITE,URINE NEGATIVE (NEGATIVE); PH,URINE 7 (5-9); PROTEIN,URINE 2+ (NEGATIVE); UROBILINOGEN,URINE NORMAL (NORMAL)
[2018-08-08 20:10] LABS: BAND NEUTROPHILS 0 %; BASOPHILS % (MANUAL) 0 %; EOSINOPHILS % (MANUAL) 2 %; LYMPHOCYTES % (MANUAL) 10 %; MONOCYTES % (MANUAL) 3 %; NEUTROPHILS % (MANUAL) 85 %; RBC MORPH NORMAL
[2018-08-08 20:13] LABS: ALBUMIN 3.8 GM/DL (3.2-4.5); BILIRUBIN,TOTAL 0.5 MG/DL (0.1-1.0); CALCIUM 9.7 MG/DL (8.5-10.1); CREATININE SERUM 1.97 MG/DL (0.60-1.30); POTASSIUM 4.2 MMOL/L (3.6-5.0); TOTAL PROTEIN 7.8 GM/DL (6.4-8.2)
--- NOTE | 2018-08-08 20:18 | Diagnostic Imaging Report ---
EXAMINATION: Portable chest. COMPARISON: Prior study from 06/17/2018. INDICATION: Fever. FINDINGS: Lung volumes are diminished. There appears to be some mild patchy atelectasis or infiltrate at the right lung base. Trace effusions cannot be excluded. There is chronic interstitial edema within the lungs. Heart size is mildly prominent without evidence of failure. IMPRESSION: Low lung volumes with patchy right base atelectasis or infiltrate and possible trace effusions. Dictated by: Dictated on workstation # [id number]
[2018-08-08 20:21] LABS: BACTERIA,URINE NEGATIVE /HPF; WBC,URINE 0-2 /HPF
[2018-08-08] MEDS ORDERED: PARO10TA3 PO (21:07)
[2018-08-08] MEDS ORDERED: RISP0.5T3 PO (21:07)
[2018-08-08] MEDS ORDERED: AMOX1TAB11 PO (21:07)
[2018-08-08] MEDS ORDERED: [UNRECOGNIZED DRUG - CODE] (21:07)
[2018-08-08] MEDS ORDERED: CIME200T86 PO (21:07)
[2018-08-08] MEDS ORDERED: NS IV 1000 ML 1,000 ML IV SCH (21:19)
--- NOTE | 2018-08-08 21:30 | NUR ---
pt declining central line access. speaking with daughter on phone.
[2018-08-08] MEDS ORDERED: D5W IV SOLUTION (EXCEL) 250 ML IV ONE (22:36)
[2018-08-08] MEDS ORDERED: NOREPINEPHRINE 4 MG/4 ML (LEVOPHED) AMP IV ONE ×2 (22:36→23:55)
[2018-08-08 23:28] VITALS: BP 82/59
[2018-08-08 23:45] VITALS: BP 89/59
[2018-08-08] MEDS ORDERED: NS (IVPB) 250 ML ONE (23:55)
[2018-08-09] VITALS (28 sets, daily range): BP systolic 75–111; BP diastolic 40–90
[2018-08-09] MEDS ORDERED: D5W IV SOLUTION (EXCEL) 250 ML IV ONE ×2 (00:01→06:23)
[2018-08-09] MEDS ORDERED: NOREPINEPHRINE 4 MG/4 ML (LEVOPHED) AMP IV ONE (00:01)
[2018-08-09] MEDS ORDERED: ACETAMINOPHEN 500 MG TAB (TYLENOL) PO PRN (00:15)
[2018-08-09] MEDS ORDERED: NS IV ONE (00:15)
[2018-08-09] MEDS ORDERED: IBUPROFEN 800 MG (MOTRIN) TAB PO PRN (00:15)
[2018-08-09] MEDS ORDERED: EPINEPHrine 1 MG INJECTION 2 MG in NS (IVPB) 250 ML IV SCH (00:15)
[2018-08-09] MEDS ORDERED: ONDANSETRON 4 MG/2 ML (SDV) Z0FRAN IV PRN (00:15)
[2018-08-09] MEDS ORDERED: NS IV 1000 ML 1,000 ML IV SCH ×2 (00:15)
[2018-08-09] MEDS: VASOPRESSIN INJECTION 20 UNIT in NS (IVPB) 100 ML IV SCH ×3 (00:32→16:05)
[2018-08-09] MEDS: NOREPINEPHRINE 4 MG in NS (IVPB) 250 ML IV SCH ×3 (00:32→14:23)
[2018-08-09] MEDS: NS IV 1000 ML 1,000 ML IV SCH ×2 (00:32→03:56)
[2018-08-09] MEDS ORDERED: WATER (STERILE) FOR INJECTION 10 ML ONE (00:32)
[2018-08-09] MEDS ORDERED: CEFEPIME 1 GM (MAXIPIME) VIAL ONE (00:32)
[2018-08-09] MEDS: CEFEPIME INJECTION 1,000 MG in WATER (STERILE) FOR INJECTION 10 ML IV SCH ×2 (00:39→06:27)
[2018-08-09] MEDS ORDERED: RT-ALBUTEROL SULF 2.5 MG/3 ML PRE-MIX VIAL INH PRN (00:45)
[2018-08-09 04:01] LABS: BASOPHILS # (AUTO) 0.1 10^3/uL (0.0-0.1); BASOPHILS % (AUTO) 0 % (0-10); EOSINOPHILS % (AUTO) 0 % (0-10); HEMATOCRIT 30 % (40-54); HEMOGLOBIN 9.9 G/DL (13.3-17.7); LYMPHOCYTES # (AUTO) 1.2 X 10^3 (1.0-4.0); LYMPHOCYTES % (AUTO) 6 % (12-44); MEAN CORPUSCULAR HEMOGLOBIN 31 PG (25-34); MEAN CORPUSCULAR HGB CONC 33 G/DL (32-36); MEAN CORPUSCULAR VOLUME 94 FL (80-99); MEAN PLATELET VOLUME 9.9 FL (7.4-10.4); MONOCYTES # (AUTO) 2.2 X 10^3 (0.0-1.0); MONOCYTES % (AUTO) 12 % (0-12); NEUTROPHILS # (AUTO) 15.8 X 10^3 (1.8-7.8); NEUTROPHILS % (AUTO) 82 % (42-75); PLATELET COUNT 211 10^3/uL (130-400); RED CELL DISTRIBUTION WIDTH 13.1 % (10.0-14.5); WHITE BLOOD COUNT 19.3 10^3/uL (4.3-11.0)
--- NOTE | 2018-08-09 04:12 | Diagnostic Imaging Report ---
Indication: Central line placement Portable chest 10:37 PM Right jugular central line tip projects over the SVC. Heart size and pulmonary vascularity are both increased. Lungs are clear. There is no effusion or pneumothorax. Impression: Pulmonary venous hypertension Dictated by: Dictated on workstation # [id number]
[2018-08-09 04:22] LABS: CALCIUM 7.9 MG/DL (8.5-10.1); CREATININE SERUM 2.05 MG/DL (0.60-1.30); MAGNESIUM 1.8 MG/DL (1.8-2.4); PHOSPHORUS 4.1 MG/DL (2.3-4.7); POTASSIUM 4.5 MMOL/L (3.6-5.0)
[2018-08-09] MEDS: inSUlin ASPART (NovoLOG) 1 UNIT/0.01 ML (CHARGE PER UNIT) SC SCH ×4 (05:43→21:26)
--- NOTE | 2018-08-09 05:49 | Pulmonary Consultation ---
History of Present Illness History of Present Illness Date of Consultation 08/09/18 05:44 Time Seen by Provider: 05:44 Date of Admission History of Present Illness 78yo poor historian with hx of COPD presented to ED via EMS from [facility] secondary to fever of 103.3 found to have septic shock and is currently on Levophed. Pt has dementia and states his name is Robbie Ascencio. Most information obtained for chart and RN. Allergies and Home Medications Allergies Coded Allergies: hydrocodone (Verified Allergy, Unknown, 06/16/18) lisinopril (Verified Allergy, Unknown, 06/16/18) oxycodone (Verified Allergy, Unknown, 06/16/18) phenytoin (Verified Allergy, Unknown, 06/16/18) Home Medications Acetaminophen 500 Mg Tablet, 1,000 MG PO Q8H PRN for PAIN-MILD OR TEMPATURE, ( Reported) Amlodipine Besylate 10 Mg Tablet, 10 MG PO DAILY, (Reported) HOLD SBP<100 Budesonide/Formoterol Fumarate 10.2 Gm Hfa.aer.ad, 2 PUFF IH BID, (Reported) Calcium Carbonate/Vitamin D3 1 Each Tablet, 1 TAB PO DAILY, (Reported) Carvedilol 12.5 Mg Tablet, 12.5 MG PO BID, (Reported) HOLD IF SBP<100 OR PULSE <60 Cimetidine 200 Mg Tablet, 200 MG PO BID, (Reported) Docusate Sodium 100 Mg Capsule, 100 MG PO BID, (Reported) Ferrous Sulfate 325 Mg Tablet, 325 MG PO DAILY, (Reported) Finasteride 5 Mg Tablet, 5 MG PO DAILY, (Reported) Folic Acid 1 Mg Tablet, 1 MG PO DAILY, (Reported) Pantoprazole Sodium 40 Mg Tablet.dr, 40 MG PO DAILY, (Reported) Risperidone 0.5 Mg Tablet, 0.5 MG PO TID, (Reported) Simvastatin 20 Mg Tablet, 20 MG PO HS, (Reported) Tamsulosin HCl 0.4 Mg Cap.er.24h, 0.4 MG PO 1999, (Reported) [Sensitive Eyes] , 1 DROP OU UD PRN for DRY EYES, (Reported) Past Pooavln-Ztlgcb-Qxfypa Hx Patient Social History Alcohol Use: Denies Use Recreational Drug Use: No Smoking Status: Former Smoker Type Used: Cigarettes Former Smoker, Quit: Apr 17, 1986 2nd Hand Smoke Exposure: No Recent Foreign Travel: No Contact w/Someone Who Travel: No Recent Infectious Disease Expo: No Recent Hopitalizations: No Immunizations Up To Date Tetanus Booster (TDap): Less than 5yrs Date of Influenza Vaccine: Jan 30, 2018 Seasonal Allergies Seasonal Allergies: No Past Medical History Surgeries: Yes Abdominal, Bladder Surgery, Eye Surgery, Tonsillectomy, Vascular Surgery Respiratory: Yes (PCP PNEUMONIA) Pneumonia Cardiac: Yes High Cholesterol, Hypertension Neurological: Yes Dementia Genitourinary: Yes Benign Prostatic Hyperpl, Prostate Problems Gastrointestinal: Yes Abdominal Hernia, Gastroesophageal Reflux, Chronic Constipation Musculoskeletal: Yes Arthritis Endocrine: Yes HEENT: Yes Cataract Cancer: No Psychosocial: Yes Sleep Difficulties, Anxiety, Depression Integumentary: No Blood Disorders: No Adverse Reaction/Blood Tranf: No Family Medical History Alzheimer's disease 19 MOTHER, Diabetes mellitus 19 FATHER, , Age:60 years and older Myocardial infarction 19 FATHER, , Age:60 years and older Review of Systems Time Seen by Provider: 05:57 Sepsis Event Evaluation Height, Weight, BMI Height: 5'11.00" Weight: 188lbs. 5.0oz. 85.961318yj; 25.4 BMI Method:Stated Exam Exam Vital Signs Date Time Temp Pulse Resp B/P (MAP) Pulse Ox O2 Delivery O2 Flow Rate FiO2 08/09/18 05:00 109 31 108/66 (80) 100 Nasal Cannula 2.00 08/09/18 04:10 98 Nasal Cannula 2.00 08/09/18 04:00 106 22 92/59 (70) 98 Nasal Cannula 2.00 08/09/18 03:49 97.9 Nasal Cannula 2.00 08/09/18 03:00 107 30 93/70 (78) 99 Nasal Cannula 08/09/18 02:00 107 29 97/63 (74) 96 Nasal Cannula 08/09/18 01:48 100/67 (78) Nasal Cannula 08/09/18 01:40 107 08/09/18 01:00 109 29 92/61 (71) 96 Nasal Cannula 2.00 08/09/18 00:55 97 Nasal Cannula 2.00 08/09/18 00:33 104 97 28 08/09/18 00:30 105 30 92/63 (73) 97 Nasal Cannula 2.00 08/09/18 00:15 104 28 88/59 (69) 97 Nasal Cannula 2.00 08/09/18 00:00 103 27 85/60 (68) 98 Nasal Cannula 2.00 08/08/18 23:45 104 16 89/59 (69) 97 Nasal Cannula 2.00 08/08/18 23:28 98.0 104 24 82/59 (67) 97 Nasal Cannula 2.00 08/08/18 23:00 98.8 106 16 94/61 (72) 97 Nasal Cannula 2.00 08/08/18 19:39 102.3 08/08/18 19:30 95 Nasal Cannula 2.00 08/08/18 19:14 102.3 122 20 174/95 (121) 95 Nasal Cannula 2.00 I & O 08/09/18 06:59 Intake Total 4020 ml Output Total 350 ml Balance 3670 ml Height & Weight Height: 5'11.00" Weight: 188lbs. 5.0oz. 85.987617ti; 25.4 BMI Method:Stated General Appearance: Chronically ill, Mild Distress HEENT: PERRL/EOMI, TMs Normal, Normal ENT Inspection, Pharynx Normal, Moist Mucous Membranes Neck: Full Range of Motion, Normal Inspection, Non Tender, Supple Respiratory: Chest Non Tender, Lungs Clear, Normal Breath Sounds, No Accessory Muscle Use, No Respiratory Distress Cardiovascular: Regular Rate, Rhythm, No Edema, No Gallop, Normal Peripheral Pulses Capillary Refill: Less Than 3 Seconds Peripheral Pulses: 2+ Radial Pulses (R), 2+ Radial Pulses (L) Extremity: Normal Capillary Refill, Normal Inspection, No Pedal Edema Neurologic/Psychiatric: Alert, Oriented x3, No Motor/Sensory Deficits Skin: Normal Color, Warm/Dry Lymphatic: No Adenopathy Results Lab Laboratory Tests 08/08/18 19:30 08/09/18 03:56 Assessment/Plan Assessment/Plan septic shock secondary to pneumonia -SVNs -Check urine/strep legionella ag -Levophed -Severe sepsis protocol -Start SoluCortef COPDAE with hypoxia -SVNS -Oxygen -Check ABG metabolic acidosis -Monitor -IVF Nausea -Zofren, Phenergan Acute renal failure -IVF Anemia -monitor Dementia ZONIA BARKLEY DO Aug 09, 2018 05:49
[2018-08-09] MEDS ORDERED: POTASSIUM CL 10MEQ/50ML IVPB 50 ML IV SCH (06:00)
[2018-08-09] MEDS ORDERED: KCL 20 MEQ TAB (K-DUR) PO SCH (06:00)
[2018-08-09] MEDS ORDERED: MAGNESIUM 1 GM/100 ML IVPB 100 ML IV SCH (06:00)
[2018-08-09] MEDS ORDERED: LACTATED RINGERS 1,000 ML IV SCH (06:15)
[2018-08-09] MEDS: LACTATED RINGERS 1,000 ML IV SCH ×3 (06:22→19:43)
[2018-08-09] MEDS: HYDROCORTISONE 100 MG/2 ML (Solu-CORTEF) VIAL IV SCH ×2 (06:26→13:36)
[2018-08-09] MEDS ORDERED: PROMETHAZINE INJ 25 MG/ML (PHENERGAN) AMP ONE (07:08)
[2018-08-09] MEDS ORDERED: PROMETHAZINE INJ 25 MG/ML (PHENERGAN) AMP IVP NR (07:15)
[2018-08-09] MEDS ORDERED: PROMETHAZINE INJ 25 MG/ML (PHENERGAN) AMP IVP PRN ×3 (07:15→22:00)
[2018-08-09 07:32] LABS: ABG BASE EXCESS -6.8 MMOL/L (-2.5-2.5); ABG OXYGEN SATURATION 22 % (94-100); ABG PCO2 40 MMHG (35-45); ABG TCO2 20.1 MMOL/L (21.0-31.0)
[2018-08-09 07:35] LABS: ABG PH 7.29 (7.37-7.43); ABG PO2 23 MMHG (79-93)
[2018-08-09 07:36] LABS: INSPIRED O2 10L; PATIENT TEMP 97.2; VENTILATOR NO
--- NOTE | 2018-08-09 07:51 | Diagnostic Imaging Report ---
INDICATION: Dyspnea. Comparison made with prior examination 08/08/2018. FINDINGS: There is cardiomegaly. There is some venous congestion. There is no pleural effusion or pneumothorax. Mediastinum is unremarkable. IMPRESSION: Cardiomegaly and some mild central pulmonary venous congestion. Dictated by: Dictated on workstation # [id number]
[2018-08-09 08:12] LABS: ABG OXYGEN SATURATION 97 % (94-100); ABG PCO2 28 MMHG (35-45); ABG PH 7.38 (7.37-7.43); ABG PO2 99 MMHG (79-93)
--- NOTE | 2018-08-09 08:12 | NUR ---
0710 PT'S SA02 NOTED TO BE DECREASING, OXYGEN PLACED VIA MASK AT 10 L, DR BARKLEY ON FLOOR AND NEW ORDERS RECEIVED FOR VAPOTHERM AND ABG, PT C/O OF NAUSEA ZOFRAN GIVEN, NEW ORDERS RECEIVED FOR PHENERGAN FROM DR BARKLEY.
[2018-08-09 08:15] LABS: ALLENS TEST YES-POS; INSPIRED O2 10 L OXYMASK; PATIENT TEMP 98.2; VENTILATOR NO
[2018-08-09] MEDS ORDERED: PANTOPRAZOLE 40 MG (PROTONIX) TAB PO SCH (09:00)
[2018-08-09] MEDS ORDERED: ENOXAPARIN 40 MG/0.4 ML (LOVENOX) SYR SC SCH (09:00)
[2018-08-09] MEDS: RT-ALBUTEROL SULF 2.5 MG/3 ML PRE-MIX VIAL INH SCH ×5 (09:04→19:39)
[2018-08-09] MEDS: RT-ADVAIR HFA 115/21 MCG PER PUFF IH SCH ×3 (09:04→19:39)
[2018-08-09] MEDS ORDERED: GUAI5SYR PO (09:44)
[2018-08-09] MEDS ORDERED: POLY15DR14 OU (09:44)
[2018-08-09] MEDS ORDERED: SIMV10TA3 PO (09:44)
[2018-08-09] MEDS ORDERED: TAMS0.4C98 PO (09:44)
--- NOTE | 2018-08-09 09:50 | NUR ---
UPDATED MED REC WITH MAR FROM [facility]. I CALLED THEM AND VERIFIED THE EXELON PATCHES THAT ARE SHOWING RECENTLY FILLED ON THE EXT MED HX HAVE BEEN DISCONTINUED.
[2018-08-09] MEDS ORDERED: LACTATED RINGERS 1,000 ML IV ONE ×2 (10:45→14:30)
--- NOTE | 2018-08-09 12:46 | NUR ---
PT CONTINUES TO HAVE DECREASED URINE OUTPUT AFTER LR BOLUS. O2 SATS 88-91% ON 23L 50% ON VAPOTHERM, HR SLOWLY INCREASING THROUGHOUT DAY (AROUND 115-120'S), BP CONTINUES TO BE SOFT AND ON LEVO@1. DR BARKLEY INFORMED OF THE ABOVE, NEW ORDERS RECEIVED TO OBTAIN ECHO.
--- NOTE | 2018-08-09 13:30 | NUR ---
DR BARKLEY ON FLOOR TO SEE PT.
--- NOTE | 2018-08-09 13:32 | History & Physical-Hospitalist ---
History of Present Illness HPI/Chief Complaint The patient is a 78-year-old white male known to me from a previous admission. His last admission here was in June 2018. He lives in an [facility] facility. His known to be severely demented. He presented last night with a 103 temperature and sepsis which proceeded to septic shock. He is currently on pressors and has received more than 3 L of IV fluids. He remains hypotensive. He currently has low to no urine output. He is sleeping and sedated and does not respond to voice. Earlier he told the nurses his name was Robbie Ascencio Date Seen 08/09/18 Time Seen by a Provider: 13:27 Attending Physician Sam Cordero MD PCP Flaco Gaxiola MD Referring Physician Date of Admission Aug 08, 2018 at 20:45 Home Medications & Allergies Home Medications Reviewed patient Home Medication Reconciliation performed by pharmacy medication reconciliations echo technician and/or nursing. Patients Allergies have been reviewed. Allergies Allergies Coded Allergies hydrocodone (Verified Allergy, Unknown, 06/16/18) lisinopril (Verified Allergy, Unknown, 06/16/18) oxycodone (Verified Allergy, Unknown, 06/16/18) phenytoin (Verified Allergy, Unknown, 06/16/18) Past Nogaamz-Prizam-Lcahya Hx Past Med/Social Hx: Reviewed Nursing Past Med/Soc Hx Patient Social History Alcohol Use: Denies Use Recreational Drug Use: No Smoking Status: Former Smoker Former Smoker, Quit: Apr 17, 1986 Type Used: Cigarettes 2nd Hand Smoke Exposure: No Recent Foreign Travel: No Contact w/other who traveled: No Recent Hopitalizations: No Recent Infectious Disease Expo: No Immunizations Up To Date Tetanus Booster (TDap): Less than 5yrs Date of Influenza Vaccine: Jan 30, 2018 Seasonal Allergies Seasonal Allergies: No Past Medical History Surgeries: Abdominal, Bladder Surgery, Eye Surgery, Tonsillectomy, Vascular Surgery Respiratory: COPD, Pneumonia Cardiac: High Cholesterol, Hypertension Neurological: Dementia Genitourinary: Benign Prostatic Hyperpl, Prostate Problems Gastrointestinal: Abdominal Hernia, Gastroesophageal Reflux, Chronic Constipation Musculoskeletal: Arthritis HEENT: Cataract Psychosocial: Sleep Difficulties, Anxiety, Depression History of Blood Disorders: No Adverse Reaction to Blood Mclean: No Family History Alzheimer's disease 19 MOTHER, Diabetes mellitus 19 FATHER, , Age:60 years and older Myocardial infarction 19 FATHER, , Age:60 years and older Review of Systems Constitutional: see HPI, other (he was not able to provide any history. This was similar to his last admission.) Physical Exam Physical Exam Vital Signs Vital Signs - First Documented 08/08/18 08/09/18 19:14 00:33 Temp 102.3 Pulse 122 Resp 20 B/P (MAP) 174/95 (121) Pulse Ox 95 O2 Delivery Nasal Cannula O2 Flow Rate 2.00 FiO2 28 Capillary Refill : Less Than 3 Seconds Height, Weight, BMI Height: 5'11.00" Weight: 188lbs. 5.0oz. [id number]; 25.4 BMI Method:Stated General Appearance: Severe Distress Eyes: Bilateral Eye Normal Inspection HEENT: Normal ENT Inspection Neck: Normal Inspection Respiratory: Lungs Clear, Decreased Breath Sounds (shallow respirations) Cardiovascular: Regular Rate, Rhythm Gastrointestinal: Normal Bowel Sounds, No Organomegaly, No Pulsatile Mass, Non Tender, Soft Extremity: Slow Capillary Refill Results Results/Procedures Labs Laboratory Tests 08/08/18 19:30 08/09/18 03:56 Patient resulted labs reviewed. Assessment/Plan Admission Diagnosis Urinary tract infection with septic shock. 2.severe dementia. Admission Status: Inpatient Order (span 2 midnights) Reason for Inpatient Admission: Severe and perhaps terminal illness requiring extensive medical support Clinical Quality Measures DVT/VTE Risk/Contraindication: Risk Factor Score Per Nursin RFS Level Per Nursing on Admit: 4+=Very High SAM CORDERO MD Aug 09, 2018 13:32
[2018-08-09] MEDS ORDERED: CEFEPIME INJECTION 1,000 MG in WATER (STERILE) FOR INJECTION 10 ML IV SCH (14:00)
[2018-08-09] MEDS ORDERED: SODIUM BICARB 8.4% 50 MEQ/50 ML (ABBOTT) SYR IV NR (14:30)
--- NOTE | 2018-08-09 14:33 | NUR ---
DR BARKLEY INFORMED OF POOR URINE OUTPUT, LETHARGY,VS, AND CVP READING OF 13-14. NEW ORDERS RECEIVED FOR 2 AMPS BICARB AND ADDITIONAL LR BOLUS.
--- NOTE | 2018-08-09 14:44 | NUR ---
DAUGHTER MARIELOS UPDATED ON PT'S CONDITION.
--- NOTE | 2018-08-09 15:00 | NUR ---
CM/SS, initial review of EMR and patient condition. Patient has established residency with [facility] here in [place]. He apparently had been at [facility] for a couple of weeks, discharged 08/07/18, and became progressively ill requiring emergent hospitalization. Next steps unknown, to be determined by patient recovery and care needs. Return to [facility], mcc placement, and/or hospice services. Unit RN's have contacted [facility] and expect a copy of patient's advanced directives for our files. Patient has two children listed as contacts, there is a third child (daughter) as well. Patient has an SO/Lia Adams who has continued to visit patient weekly at [facility]. She is able to access updates if family provide her with password. Follow, assist as needed.
--- NOTE | 2018-08-09 16:20 | NUR ---
LR BOLUS COMPLETE, CURRENT URINE OUTPUT 15ML, HR 125-130, VAPOTHERM SETTINGS INCREASED TO 35L 60% AND O2 SATS 88-91%. DR BARKLEY INFORMED. NEW ORDERS RECEIVED FOR CXR AND LABS.
[2018-08-09 16:59] LABS: BASOPHILS % (AUTO) 0 % (0-10); EOSINOPHILS % (AUTO) 0 % (0-10); HEMATOCRIT 31 % (40-54); HEMOGLOBIN 10.2 G/DL (13.3-17.7); LYMPHOCYTES % (AUTO) 5 % (12-44); MEAN CORPUSCULAR HEMOGLOBIN 31 PG (25-34); MEAN CORPUSCULAR HGB CONC 33 G/DL (32-36); MEAN CORPUSCULAR VOLUME 93 FL (80-99); MEAN PLATELET VOLUME 10.3 FL (7.4-10.4); MONOCYTES # (AUTO) 1.6 X 10^3 (0.0-1.0); MONOCYTES % (AUTO) 8 % (0-12); NEUTROPHILS # (AUTO) 17.7 X 10^3 (1.8-7.8); NEUTROPHILS % (AUTO) 87 % (42-75); PLATELET COUNT 184 10^3/uL (130-400); RED CELL DISTRIBUTION WIDTH 13.3 % (10.0-14.5); WHITE BLOOD COUNT 20.3 10^3/uL (4.3-11.0)
--- NOTE | 2018-08-09 17:02 | Diagnostic Imaging Report ---
INDICATION: Short of air. Portable chest shows cardiomegaly with vascular congestion. There are bilateral infiltrates and small effusions. IMPRESSION: Congestive failure with pulmonary edema. This is worse compared to the study performed earlier on 08/09/2018. Dictated by: Dictated on workstation # [id number]
[2018-08-09 17:18] LABS: ALBUMIN 2.6 GM/DL (3.2-4.5); BILIRUBIN,TOTAL 0.5 MG/DL (0.1-1.0); CREATININE SERUM 2.18 MG/DL (0.60-1.30); TOTAL PROTEIN 5.4 GM/DL (6.4-8.2)
--- NOTE | 2018-08-09 18:00 | NUR ---
DR BARKLEY HERE DISCUSSING POSSIBLE COMFORT CARE MEASURES W/ PT'S DAUGHTER MORAIMA AND Alisha VELIZ.
--- NOTE | 2018-08-09 18:01 | Pulmonary Progress Note ---
Standard Progress Note Progress Notes Time Seen by Provider: 17:56 Called to bedside secondary to persistent oliguria, hypotension, and tachycardia despite 3 liter LR boluses throughout the day. IVF have been running at 150cc/hr on top of boluses. Family at bedside and I discussed with them in detail patients current condition and poor prognosis. LA continues to increase and pt is also in shock liver failure. Pt is currently a DNR. After discussion with family at bedside and with patient's son on the phone family will probably make patient comfort care only tonight. They are notifying other family members of patients condition. Assessment & Plan septic shock secondary to pneumonia -SVNs -Check urine/strep legionella ag -Levophed -Severe sepsis protocol - SoluCortef acute shock liver COPDAE with hypoxia -SVNS -Oxygen -Check ABG metabolic lactic acidosis - worsening -Monitor -IVF Nausea -Zofren, Phenergan Acute renal failure -IVF Anemia -monitor Dementia Once family is ready will proceed with comfort care only. Critical Care: Critically Ill Patient Time spent with patient (mins): 30 Focused Exam Lactate Level 08/08/18 19:30: Lactic Acid Level 1.59 08/09/18 16:05: Lactic Acid Level 3.74*H Time of Focused Exam: 23:24 Lactic Acid Level Laboratory Tests Test 08/09/18 16:05 Lactic Acid Level 3.74 MMOL/L (0.50-2.00) ZONIA BROOKE DO Aug 09, 2018 18:01
[2018-08-09] MEDS ORDERED: morphine INJ 4 MG/ML 1 ML (VIAL/SYRINGE) IVP PRN (19:15)
[2018-08-09] MEDS ORDERED: LORazepam INJ 2 MG/ML (ATIVAN) VIAL IVP PRN (19:15)
--- NOTE | 2018-08-09 21:33 | NUR ---
Patient informed this radio news writer at this time that they are ready to make patient comfort care. Text sent to Dr Montilla per his request.
--- NOTE | 2018-08-09 21:40 | NUR ---
IV's ended, All monitors removed. Vapotherm removed, oxygen per NC @ 2l applied. 4mg Morphine administered. Family at the bedside.
[2018-08-09] MEDS ORDERED: ARTIFICAL TEARS 0.4 ML UNIT DOSE (REFRESH PLUS) OU PRN (22:00)
[2018-08-09] MEDS ORDERED: GLYCOPYRROLATE 0.2 MG/ML (ROBINUL) 2 ML VIAL IV PRN (22:00)
[2018-08-09] MEDS ORDERED: SALIVA STIMULANT MOUTH SPRAY (BIOTENE) 1.5 OZ MM PRN (22:00)
[2018-08-09] MEDS ORDERED: BISACODYL 10 MG SUPP (DULCOLAX) PR PRN (22:00)
[2018-08-09] MEDS ORDERED: ONDANSETRON 4 MG/2 ML (SDV) Z0FRAN IVP PRN (22:00)
[2018-08-09] MEDS ORDERED: ACETAMINOPHEN 650 MG SUPP (TYLENOL) PR PRN (22:00)
--- NOTE | 2018-08-09 22:32 | NUR ---
Patient at this time. Confirmed by 2nd RN Ailyn Harvey. Family at the bedside.
--- NOTE | 2018-08-09 22:47 | NUR ---
Call to Dr Ireland at this time to notify of patient .
--- NOTE | 2018-08-09 22:49 | NUR ---
Call to [facility] at this time. Patient not eligible for transplant d/t age. Referral number [id number].
--- NOTE | 2018-08-09 23:30 | NUR ---
Family gone home for the night. Family unsure of arrangements for patient with home. Patient son expected to arrive tomorrow am and will be here to make arrangements for patient to depart to home of family choosing.
--- NOTE | 2018-08-10 10:04 | Discharge Summary-Hospitalist ---
Diagnosis/Chief Complaint Date of Admission Aug 08, 2018 at 20:45 Date of Discharge Admission Diagnosis Urinary tract infection with septic shock. 2.severe dementia. Discharge Diagnosis (1) Septic shock Status: Acute (2) Hypoxia Status: Acute (3) UTI (urinary tract infection) Status: Acute Discharge Summary Discharge Physical Exam Allergies: Coded Allergies: hydrocodone (Verified Allergy, Unknown, 06/16/18) lisinopril (Verified Allergy, Unknown, 06/16/18) oxycodone (Verified Allergy, Unknown, 06/16/18) phenytoin (Verified Allergy, Unknown, 06/16/18) Vitals & I&Os Vital Signs Date Time Temp Pulse Resp B/P (MAP) Pulse Ox O2 Delivery O2 Flow Rate FiO2 08/09/18 22:17 Nasal Cannula 2.00 08/09/18 21:30 129 32 96/40 (58) 08/09/18 21:00 92 08/09/18 19:50 60 08/09/18 19:45 98.3 General Appearance: Other () Hospital Course Was the Problem List Reviewed?: Yes Hospital course: patient had an intense ICU course when he was admitted for septic shock and UTI and aggressive treatment ensued but due to severity of his dementia and overall poor prognosis it was decided that intubation was not in his best interest and patient with family at he bedside. Labs (last 24 hrs) Microbiology 08/08/18 Blood Culture - Preliminary, Resulted No growth 08/09/18 MRSA Screen - Final, Complete MRSA not isolated 08/08/18 Urine Culture - Final, Complete NO GROWTH Patient resulted labs reviewed. Discussion & Recommendations Discharge Planning: <30 minutes discharge planning Discharge Home Medications: Active Scripts Active Reported Guaifenesin Dm Syrup (Guaifenesin/Dextromethorphan) 5 Ml Syrup 10 Ml PO DAILY PRN Artificial Tears Drops (Polyvinyl Alcohol/Povidone) 15 Ml Drops 1 Drop OU UD PRN Flomax (Tamsulosin HCl) 0.4 Mg Cap 0.4 Mg PO Q12H Simvastatin 10 Mg Tablet 10 Mg PO 1700 Amox Tr-K Clv 500-125 mg Tab (Amoxicillin/Potassium Clav) 1 Each Tablet 1 Tab PO BID 7 Days 7 DAY SUPPLY START DATE 08-07-18 Risperidone 0.5 Mg Tablet 0.5 Mg PO TID Tagamet Hb (Cimetidine) 200 Mg Tablet 200 Mg PO BID Paroxetine HCl 10 Mg Tablet 10 Mg PO DAILY Symbicort 160-4.5 Mcg Inhaler (Budesonide/Formoterol Fumarate) 10.2 Gm Hfa.aer.ad 2 Puff IH BID Tylenol Extra Strength (Acetaminophen) 500 Mg Tablet 1,000 Mg PO UD PRN TAKES 2 (500MG) TABLETS Protonix (Pantoprazole Sodium) 40 Mg Tablet.dr 40 Mg PO DAILY Amlodipine Besylate 10 Mg Tablet 10 Mg PO DAILY Docusate Sodium 100 Mg Capsule 100 Mg PO BID Ferrous Sulfate 325 Mg Tablet 325 Mg PO DAILY Folic Acid 1 Mg Tablet 1 Mg PO DAILY Finasteride 5 Mg Tablet 5 Mg PO DAILY Calcium 600 + Vit D 400 Tablet (Calcium Carbonate/Vitamin D3) 1 Each Tablet 1 Tab PO DAILY Carvedilol 12.5 Mg Tablet 12.5 Mg PO BID HOLD IF SBP<100 OR PULSE <60 Instructions to patient/family Please see electronic discharge instructions given to patient. Clinical Quality Measures DVT/VTE Risk/Contraindication: Risk Factor Score Per Nursin RFS Level Per Nursing on Admit: 4+=Very High Problem Qualifiers (1) UTI (urinary tract infection): Urinary tract infection type: acute cystitis Hematuria presence: without hematuria Qualified Codes: N30.00 - Acute cystitis without hematuria JOHNATHAN BLACK DO Aug 10, 2018 10:04
--- NOTE | 2018-08-10 11:11 | NUR ---
PER FAMILY, BODY RELEASED TO [facility]. PERSONAL BELONGINGS TAKEN W/ FAMILY.
== END 2018-08-10 11:45 | disposition expired | DRG 871 ==
LOC: EDUNIT# 19:14 → ER 19:15 → 4TH 20:45 → ICU 23:35
PROVIDERS: ADMIT Internal Medicine; ATTEND Internal Medicine
PROC: 02HV33Z Insertion of Infusion Device into Superior Vena Cava, Percutaneous Approach (ICD-10-PCS; principal; 2018-08-08)
DX: A41.9 Sepsis, unspecified organism (principal); R65.21 Severe sepsis with septic shock; J18.9 Pneumonia, unspecified organism; J44.0 Chronic obstructive pulmonary disease with (acute) lower respiratory infection; J44.1 Chronic obstructive pulmonary disease with (acute) exacerbation; N17.9 Acute kidney failure, unspecified; N30.00 Acute cystitis without hematuria; Z66 Do not resuscitate; Z51.5 Encounter for palliative care; E87.2 Acidosis; K72.00 Acute and subacute hepatic failure without coma; R11.0 Nausea; I07.1 Rheumatic tricuspid insufficiency; D64.9 Anemia, unspecified; R09.02 Hypoxemia; F03.90 Unspecified dementia, unspecified severity, without behavioral disturbance, psychotic disturbance, mood disturbance, and anxiety; N40.1 Benign prostatic hyperplasia with lower urinary tract symptoms; R32 Unspecified urinary incontinence; E78.00 Pure hypercholesterolemia, unspecified; I10 Essential (primary) hypertension; K21.9 Gastro-esophageal reflux disease without esophagitis; M19.91 Primary osteoarthritis, unspecified site; G47.9 Sleep disorder, unspecified; F41.9 Anxiety disorder, unspecified; F32.9 Major depressive disorder, single episode, unspecified; Z87.891 Personal history of nicotine dependence
CPT/HCPCS: 36415; 36600; 71045; 80048; 80053; 81000; 82805; 82962; 83605; 83735; 84100; 85007; 85025; 85027; 85610; 85730; 87040; 87081; 87088; 87449; 87804; 87899; 93306; 94640